=== PATIENT | female | born 1935 | race Caucasian/White ===

== ENCOUNTER 2019-06-06 09:59 | Outpatient (CLI) | payer MEDICARE, OTHER, SELFPAY ==
--- NOTE | ~2019-06-06 | MM_ITS ---
EXAMINATION: MM screening jacobo LT w prema HISTORY: Screening mammogram TECHNIQUE: Craniocaudal and mediolateral oblique 3-D tomosynthesis images were obtained and synthetic 2-D images were generated. CAD analysis was submitted and interpreted. COMPARISON: No prior mammogram is available for comparison at this institution. BREAST PARENCHYMAL COMPOSITION: There are scattered areas of fibroglandular density. FINDINGS: There is no evidence of suspicious mass, calcification, or architectural distortion to sugg est malignancy in either breast. There has been no suspicious interval change. IMPRESSION: 1. No mammographic evidence of malignancy. 2. Recommend routine screening mammography in one year. BI-RADS Category 1: Negative Reviewed, dictated and finalized at location A.
== END 2019-06-06 10:00 | disposition home or self-care (01) ==
LOC: ANHIMG 10:01
PROVIDERS: PCP Internal Medicine; Visit Provider Internal Medicine Hematology & Oncology
DX: Z12.31 Encounter for screening mammogram for malignant neoplasm of breast (principal)
CPT/HCPCS: 77063; 77067

== ENCOUNTER 2019-09-29 14:33 | Outpatient (CLI) | payer MEDICARE, OTHER, SELFPAY ==
--- NOTE | ~2019-09-29 | CT_ITS ---
EXAMINATION: CTA chest PE protocol DATE: 09/29/2019 15:48 INDICATION: Elevated d-dimer TECHNIQUE: Computed tomography angiography (CTA) of the chest was performed with 100 mL Omnipaque-350 intravenous contrast timed to evaluate the pulmonary arteries. Coronal maximum intensity projection 3D-reconstructions were created by the technologist. Automated exposure control and iterative reconst ruction technique were employed. Exam dose: 274.59 mGy-cm total exam DLP. COMPARISON: None. FINDINGS: There is moderate contrast enhancement of the pulmonary arteries, less intense than that of the aorta. No apparent pulmonary embolism is identified. No thoracic aortic aneurysm or dissection. No hilar or mediastinal mass lesion or lymphadenopathy. Normal size and homogeneous enhancement of the thyroid gland. Normal heart size. Trace pericardial fluid. Coronary artery calcification. Status post right mastectomy. There is a left-sided Port-A-Cath catheter in the superior vena cava. Small sliding hiatal hernia. Status post cholecystectomy. There is discoid atelectasis or scarring at the posterior right lung base. No pulmonary infiltrate or consolidation, pulmonary mass lesion. IMPRESSION: No evidence of pulmonary embolism Reviewed, dictated and finalized at Location A. Reviewed, dictated and finalized at location A.
== END 2019-09-29 14:34 | disposition home or self-care (01) ==
PROVIDERS: PCP Internal Medicine; Visit Provider Internal Medicine Hematology & Oncology
DX: R79.1 Abnormal coagulation profile (principal)
CPT/HCPCS: 71275; Q9967

== ENCOUNTER 2020-01-16 12:33 | Outpatient (CLI) | payer MEDICARE, OTHER, SELFPAY ==
--- NOTE | ~2020-01-16 | DEXA_ITS ---
Bone Density Report Name: Tatianna Bailey Age: 84 Sex: Female Ethnicity: White Date of : 1935 Indication: postmenopausal; cancer; hysterectomy; Referring Provider: Chadwick Enciso Study: Bone densitometry was performed. Exam Date: January 16, 2020 Accession number: [id number] Bone Density: Region BMD T-score Z-score Classification AP Spine (L1, L2, L4) 0.983 -0.5 2.3 Normal Femoral Neck (Left) 0.666 -1.7 0.8 Osteopenia Total Hip (Left) 0.826 -0.9 1.3 Normal Total Hip Bilateral Avg 0.788 -1.2 1.0 Osteopenia Femoral Neck (Right) 0.636 -1.9 0.5 Osteopenia Total Hip (Right) 0.750 -1.6 0.7 Osteopenia World Health Organization criteria for BMD impression classify patients as: Normal (T-score at or above -1.0), Osteopenia (T-score between -1.0 and -2.5), or Osteoporosis (T-score at or below -2.5). 10-year Fracture Risk(1): Major Osteoporotic Fracture 15% Hip Fracture 4.2% Reported Risk Factors: [place] (), Neck BMD=0.636, BMI=29.2 (1) FRAX(R) Version 3.08. Fracture probability calculated for an untreated patient. Fracture probability may be lower if the patient has received treatment. Clinical Information Provided by Patient: Has the following medical conditions: Cancer, Hysterectomy Patient maximum height was 64 Menopause Age: 46 No regular weight bearing exercise Drinks caffeinated beverages Impression: The patient has low bone mass, based on the Right Femoral Neck T-score. The patient has an estimated ten-year risk of hip fracture of 4.2% and an estimated ten-year risk of major fracture of 15%, based on the WHO FRAX algorithm. Discussion: BONE DENSITY IS LOW AT ONE OR MORE SKELETAL SITES. THE PATIENT'S BMD AND CLINICAL RISK FACTORS CONTRIBUTE TO THIS PATIENT'S INCREASED RISK OF FRACTURE. This patient's lowest T-score is low at one or more skeletal sites. It meets the World Health Organization's (WHO) criteria for ?low bone mass? (T-score between -1.0 and -2.5). The patient's 10-year risk of hip fracture as calculated by FRAX exceeds the threshold where pharmacological therapy is recommended by the National Osteoporosis Foundation (NOF). However, all treatment decisions require clinical judgment and consideration of individual patient factors, including patient preferences, comorbidities, previous drug use, risk factors not captured in the FRAX model (e.g., frailty, falls, vitamin D deficiency, increased bone turnover, interval significant decline in bone density) and possible under or overestimation of fracture risk by FRAX. The patient should follow a healthful lifestyle (good nutrition with adequate calcium and vitamin D, and appropriate weight-bearing exercise). Follow-Up: Consider a repeat BMD and Vertebral Fracture Assessment (VFA) exam in 2 years or sooner if medically neces
== END 2020-01-16 12:34 | disposition home or self-care (01) ==
PROVIDERS: PCP Internal Medicine; Visit Provider Internal Medicine Hematology & Oncology
DX: Z51.81 Encounter for therapeutic drug level monitoring (principal); Z79.811 Long term (current) use of aromatase inhibitors; M16.0 Bilateral primary osteoarthritis of hip
CPT/HCPCS: 77080

== ENCOUNTER 2020-06-06 13:50 | Outpatient (CLI) | payer MEDICARE, OTHER, SELFPAY ==
--- NOTE | ~2020-06-06 | MM_ITS ---
EXAMINATION: MM screening jacobo LT w prema HISTORY: Screening left mammogram, history of right mastectomy TECHNIQUE: Craniocaudal and mediolateral oblique 3-D tomosynthesis images were obtained and synthetic 2-D images were generated. CAD analysis was submitted and interpreted. COMPARISON: 06/06/2019, 06/08/2018, 05/29/2016 BREAST PARENCHYMAL COMPOSITION: The breast is heterogeneously dense, which may obscure small masses. FINDINGS: There is no evidence of suspicious mass, calcification, or architectural distortion to sugg est malignancy. There has been no suspicious interval change. IMPRESSION: 1. No mammographic evidence of malignancy. 2. Recommend routine screening mammography while the patient remains in good health. BI-RADS Category 1: Negative Reviewed, dictated and finalized at location A. IMPRESSION: 1. No mammographic evidence of malignancy. 2. Recommend routine screening mammography while the patient remains in good he alth. BI-RADS Category 1: Negative
== END 2020-06-06 13:51 | disposition home or self-care (01) ==
LOC: ANHIMG 13:55
PROVIDERS: PCP Internal Medicine; Visit Provider Internal Medicine Hematology & Oncology
DX: Z12.31 Encounter for screening mammogram for malignant neoplasm of breast (principal)
CPT/HCPCS: 77063; 77067

== ENCOUNTER 2020-06-06 14:50 | Outpatient (CLI) | payer MEDICARE, OTHER, SELFPAY ==
--- NOTE | ~2020-06-06 | XR_ITS ---
XR abdomen/kub 1V 06/06/2020 15:01 Indication: Constipation Procedure: KUB Comparison: CT dated 04/02/2017 Findings: Bowel gas pattern is nonobstructive. There are cholecystectomy clips. There are additional surgical clips in the right abdomen and pelvis. Moderate colonic fecal loading. There are pelvic phle boliths. No definite renal stones are demonstrated. There is severe lumbar spondylosis with dextrosco liosis. There is osteitis pubis. Impression: 1: Nonobstructive bowel gas pattern with moderate colonic fecal loading. Reviewed, dictated and finalized at location A. Impression: 1: Nonobstructive bowel gas pattern with moderate colonic fecal loading.
== END 2020-06-06 14:51 | disposition home or self-care (01) ==
PROVIDERS: PCP Internal Medicine; Visit Provider Internal Medicine
DX: K59.00 Constipation, unspecified (principal)
CPT/HCPCS: 74018

== ENCOUNTER → 2020-06-11 10:37 | Outpatient (CLI) | payer MEDICARE, OTHER, SELFPAY ==
[2020-06-11 19:58] LABS: SARS-CoV-2 RNA PCR Negative
== END ==
PROVIDERS: PCP Internal Medicine; Visit Provider Internal Medicine
DX: Z20.822 Contact with and (suspected) exposure to COVID-19 (principal); R06.02 Shortness of breath
CPT/HCPCS: C9803; U0003; U0005

== ENCOUNTER 2020-10-15 06:59 | Outpatient (CLI) | payer MEDICARE, OTHER, SELFPAY ==
--- NOTE | ~2020-10-15 | CT_ITS ---
EXAMINATION: CTA chest PE protocol EXAM DATE: 10/15/2020 07:58 INDICATION: dyspnea, unspec. TECHNIQUE: Spiral CTA of the chest (pulmonary arteries) was performed with 100 cc Omnipaque 350 intr avenous contrast injection. Images were acquired during the pulmonary arterial phase. Coronal maxi mum intensity projection 3D-reconstructions were created by the technologist on dedicated workstation . Axial, coronal and sagittal reformatted images were reviewed. The dose-length product (DLP) for t his examination was 463.61 mGy-cm. The exposure was tailored according to patient size (auto mA exp osure control), and iterative reconstruction (ASIR) was used as additional dose reduction technique. Comparison is made to prior examination from 09/29/2019. FINDINGS: Pulmonary arteries are well opacified and without intraluminal filling defects. No thora cic aortic dissection. There is 5 mm nodule in the left lower lobe just above the diaphragm, new comp ared to prior study. Small amount of scattered post infectious residua bilaterally. Small pericardi al effusion. Tracheobronchial tree is patent. Bilateral hilar lymph nodes which are within normal size limits. There is no pneumothorax. Pacemaker/AICD device. Heart normal in size. There is mild coronary arterial calcification, arterial sclerosis. Upper abdomen is unremarkable. There is thora cic spondylosis without osteoblastic or osteolytic lesions identified. There is mild emphysema IMPRESSION: 1. Left lower lobe 5 mm nodule, new finding; consider one-year follow-up chest CT. 2. Small amount of upper lobe post infectious residua. 3. Small pericardial effusion. 4. Mild emphysema. Reviewed, dictated and finalized at location B.
== END 2020-10-15 07:00 | disposition home or self-care (01) ==
PROVIDERS: PCP Internal Medicine; Visit Provider Internal Medicine Hematology & Oncology
DX: R06.00 Dyspnea, unspecified (principal); I31.3 Pericardial effusion (noninflammatory); J43.9 Emphysema, unspecified; R91.1 Solitary pulmonary nodule
CPT/HCPCS: 71275; Q9967

== ENCOUNTER 2021-01-28 14:12 | Outpatient (CLI) | payer MEDICARE, OTHER, SELFPAY ==
--- NOTE | 2021-01-28 16:12 | WPDPFTINT ---
PFT Procedure Performed PFT Procedure Performed Spirometry with Pre/Post Bronchodilator Plethysmography (Lung Vol) Diffusing Cap (DLCO) Flow Vol Loop PFT Interpretation This is a pulmonary function test with pre and post-bronchodilator spirometry, plethysmography and diffusing capacity. The test was performed and results interpreted in accordance with the 2019 and 2005 ATS/ERS Task Force guidelines respectively using the Global Lung Function Initiative-2012 reference equations. Patient demonstrated good effort and cooperation. Reproducibility criteria were met. The quality of the pre bronchodilator spirometry maneuver was Grade A and post bronchodilator spirometry maneuver was Grade A. Findings: Spirometry: there is decreased maximal expiratory airflow at all lung volumes with concave expiratory flow tracing. The contour of the inspiratory flow tracing is normal. The pre bronchodilator FVC is 2.02 L, 82% predicted. The pre bronchodilator FEV1 is 0.92 L, 50% predicted. The FEV1: FVC ratio is 45%. The post bronchodilator FVC is 2.30 L, representing a 14% increase. The post bronchodilator FEV1 is 1.14 L, representing a 24% increase. The post bronchodilator FEV1: FVC ratio was 50%. Plethysmography: The total lung capacity is 4.90 L, 96% predicted. The functional residual capacity is 3.31 L, 112% predicted. The residual volume is 2.62 L, 106% predicted. Diffusing capacity: The absolute diffusion capacity is 13.5, 71% predicted. The diffusing capacity corrected for alveolar volume is 3.68, 90% predicted. Impression: There is a moderately severe obstructive abnormality with significant improvement after inhaling a single dose of albuterol. The lung volumes are normal. The diffusing capacity is normal. There are no prior studies for comparison
== END 2021-01-28 14:13 | disposition home or self-care (01) ==
LOC: ANHPFT 14:15
PROVIDERS: PCP Internal Medicine; Visit Provider Internal Medicine Pulmonary Disease
DX: J44.9 Chronic obstructive pulmonary disease, unspecified (principal)
CPT/HCPCS: 94060; 94726; 94729

== ENCOUNTER 2021-04-15 00:07 | Day surgery (SDC) | payer MEDICARE, OTHER, SELFPAY ==
--- NOTE | 2021-04-08 13:10 | PC.NURSE ---
Report to the Outpatient Waiting Room, entrance under the green pavilion located off [facility], at time _06 on date _04/15/21 . OR Time: . - You and your visitor will be asked a series of questions to screen for COVID 19 for your protection. - A mask is required within the hospital. Preoperative COVID Testing Requirements: No COVID Test needed if: (proof is required; if not received patient will have Rapid Test prior to entry) - Patient has received COVID Vaccine at least 14 days prior to procedure date or - Patient has positive COVID test result within last 90 days of surgery date. COVID Test needed if above criteria is not met If not COVID vaccinated a COVID test must be conducted within 72 hours of surgery and patient is asked to isolate self from time of testing until procedure. You will go to the [facility] for your COVID testing. The [facility] site is located at the corner of [address] [facility]. You will only be called if COVID results are positive and your surgeon may reschedule your elective surgery date. LIGHT BREAKFAST MORNING OF SURGERY Take the following medications with a SIP of water the morning of surgery: ALL ROUTINE MORNING MEDICATIONS Medications to discontinue per physician NONE Date to take last dose Please no make-up, nail turkish, hairspray, perfume, deodorant, or body powder the day of surgery. No jewelry (including any body piercings) or valuables the day of surgery, leave them at home. Please take a shower or bath the night before, or the morning of, surgery with an antibacterial soap. Wear comfortable, loose fitting clothing. Children are encouraged to wear pajamas. - Jewelry must be removed prior to entering the operating room. Rings and piercings that are not removed may be cut off. - The hospital will not accept responsibility for valuables. - Please leave all valuables, including medications, at home the day of surgery YOU MAY DRIVE YOURSELF HOME-LOCAL ANESTHESIA One visitor will be allowed to accompany the patient into the hospital. Patients visitor will be instructed to remain with patient at all times or leave the building. We will allow the visitor to come back to the postoperative area when patient is ready. Follow any additional instructions given to you from your surgeon. Telephone instructions given to PATIENT and asked if any additional questions and then verbalized understanding. Patient advised to call surgeon office or pre surgery nurse liaison [phone] if any additional questions.
[2021-04-08 13:17] VITALS: BMI 30.9
--- NOTE | 2021-04-14 17:25 | PM.HPGS ---
History of Present Illness History of Present Illness Consent: Risks, benefits, and alternatives o removal of a Port-A-Cath have been discussed and questions answered. Patient agrees to proceed with procedure. Chief complaint: Milignant Neoplasm of Nipple Right Breast Narrative: Tatianna Bailey is a 85 year old female who has history of a lobular carcinoma of the right breast ( T1, N1, stage IIA). She had right breast cancer and she underwent treatment including per gentle and Herceptin. She now presents for removal of her Port-A-Cath which she no longer needs. Review of Systems Constitutional: Constitutional: Reports no additional constitutional complaints, Reports fatigue and Denies malaise Eyes: Eyes: Denies change in vision and Denies loss of vision ENT: Reports Normal hearing present, Denies change in voice, Denies dizziness, Denies hoarseness and Denies sore throat Cardiovascular: Cardiovascular: Denies chest pain, Denies leg edema and Denies dyspnea Comments: Known hypertension on meds Respiratory: Respiratory: Denies cough, Denies dyspnea and Denies wheezing Comments: apparently has COPD/asthma on medications. Gastrointestinal: Gastrointestinal: Denies hematochezia, Denies change in bowel habits and Denies heartburn Genitourinary: Genitourinary: Denies urinary frequency and Denies urinary incontinence Musculoskeletal: Comments: History of arthritis it appears that she takes anti-inflammatories as needed for right knee and other arthritic disease. Integumentary/Breasts: Comments: History of lobular carcinoma of the right breast discovered in 2018. Continues to follow Dr. Enciso. Initially had a lumpectomy with axillary lymph node biopsy then subsequently several months later in 2018 a right mastectomy. Neurologic: Reports Normal hearing present, Denies confusion, Denies dizziness, Denies loss of vision, Denies memory loss and Denies seizure-like activity Psychiatric: Psychiatric: Denies confusion, Denies depression and Denies memory loss Endocrine: Endocrine: Denies cold intolerance and Reports fatigue Hematologic/Lymphatic: Hematologic/Lymphatic: Denies easy bleeding and Denies easy bruising Allergic/Immunologic: Allergic/Immunologic: Denies wheezing PMFSH Past Medical History Medical History (Updated 04/14/21 @ 17:32 by Franky Watson MD) Angioedema Arthritis of right wrist BMI 30.0-30.9,adult (Unknown) Degenerative arthritis of knee, bilateral Estrogen receptor positive status (ER+) Incisional hernia, without obstruction or gangrene Iron deficiency anemia due to chronic blood loss 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, estrogen receptor positive Osteoarthritis of right knee (Unknown) Port-A-Cath in place (~2018) SOB (shortness of breath) Surgical History Surgical History H/O right mastectomy History of hernia repair History of right knee surgery Family History Family History Father Family history of diabetes mellitus in first degree relative Family history of coronary artery disease Patient's father is in good health Mother Family history of lung cancer Sibling Family history of lung cancer Family history of malignant neoplasm of brain, Onset Age: 60 Other Diabetes mellitus Family history of cardiovascular disease Family history of kidney disease Social History Social History Smoking status: Never smoker Second hand tobacco smoke exposure: No Smoking end date: 02/16/1961 Alcohol intake: current Drinks per week: 4 Alcohol use details: occasional Substance use: never Substance use type: does not use Living arrangements: with family Additional living arrangements comments: Spiritual care concerns: Yes (CAODAISM) Agree to blood products: No
[2021-04-15] VITALS (8 sets, daily range): BP systolic 155–178; BP diastolic 65–79; PULSE 75–82; RESP 16–18; TEMP 36.4; O2SAT 94–98
--- NOTE | 2021-04-15 07:13 | WPDHPUPDATE1 ---
History and Physical Update Update Date/Time: 04/15/21 07:13 History and Physical has been reviewed, including an updated exam of the patient. There are NO changes in the patient's condition. Risks, benefits, and alternatives have been discussed and questions answered. Patient agrees to proceed with procedure.
--- NOTE | 2021-04-15 08:44 | W.PM.PROC2 ---
Procedure Note - Detailed Date of Procedure 04/15/21 Pre-op Diagnosis 1. indwelling Port-A-Cath. 2. Malignant Neoplasm of Nipple Right Breast (T1, N1, MX right breast cancer) Post-op Diagnosis same Procedure Performed Removal of Kaycee-cath Surgeon Franky Watson MD Property Preservation Specialist none Anesthesia MAC and local (2% Xylocaine with Epi) Indications Patient has had a Port-A-Cath in for chemotherapy and immune therapy in the past. Now no longer in use. Plant to remove under local anesthetic. Findings Port significantly inferior to the original incision for placement so separate incision made. Port and catheter intact upon removal. no significant bleeding after holding pressure for 30 seconds upon removal of the catheter from the subclavicular position. Description of Procedure Prior to the procedure the patient was seen in the holding area and the area of proposed surgery was marked. All questions were answered and the patient wished to proceed with removal of the Port-A-Cath. The patient was brought to the operating room and placed supine. The entire left neck, chest, and shoulder were prepped with chlorhexidine. The area was draped off. Time-out was performed confirming patient and site of surgery. I outlined the proposed incision directly over the palpable port approximately 3 cm below the scar from the insertion. Following this a 15 blade knife was used to make an incision directly over the previously placed port. This was done after infiltrating local anesthetic using 2% xylocaine with epinephrine into the area of skin and subcutaneous tissue overlying the port and into the area of the pocket containing the port. Following this we carefully dissected down to the junction of the port and catheter. Bovie cautery with needle-tip was used to carefully incise the capsule around the port and free up the scar tissue around the junction of the port and catheter. Two apparent silk sutures that were holding the port to the underlying fascia were carefully excised with a 15 blade knife and mosquito hemostats. Following this the port was brought up and out of the pocket after I grasped it with 2 Allis clamps Then watching the patient's respirations, I carefully removed the catheter in one smooth pull while applying pressure in the subclavicular area on the right which was the catheter exit site as the patient was breathing out. Pressure was held for 1 minute. I used Bovie cautery on some the subcutaneous tissues as we waited for good clotting. Again hemostasis was checked in the wound and seemed to be adequate. Then using Bovie cautery for superficial hemostasis in the subcutaneous tissues it seems that hemostasis was well achieved. Following this closure was obtained with 3 layers. since the port seemed to be fairly deep I used to deep 3-0 Vicryl sutures. Then I used about 4 buried subcutaneous sutures of 3-0 Vicryl in the more superficial subcutaneous layer followed by a running subcuticular closure of 4-0 Monocryl on the skin. surgical glue was then applied. Patient tolerated the procedure well. Estimated blood loss was 3 cc Sponge, needle, and instrument counts were correct at the end the procedure and patient was taken to the outpatient recovery area in good condition. Implants none Drains No Packing No Pathology none sent Complications No immediate complications Condition stable Disposition same day
== END 2021-04-15 08:50 | disposition home or self-care (01) ==
PROVIDERS: PCP Internal Medicine; Visit Provider Surgery
PROC: (CPT 36589; principal; 2021-04-15 07:30)
DX: Z45.2 Encounter for adjustment and management of vascular access device (principal); C50.011 Malignant neoplasm of nipple and areola, right female breast; M19.90 Unspecified osteoarthritis, unspecified site; D50.0 Iron deficiency anemia secondary to blood loss (chronic); R06.02 Shortness of breath; Z79.51 Long term (current) use of inhaled steroids; J44.9 Chronic obstructive pulmonary disease, unspecified; I10 Essential (primary) hypertension
CPT/HCPCS: 36590

== ENCOUNTER 2021-06-10 10:29 | Outpatient (CLI) | payer MEDICARE, OTHER, SELFPAY ==
--- NOTE | ~2021-06-10 | MM_ITS ---
EXAMINATION: MM screening jacobo LT w prema HISTORY: Screening TECHNIQUE: Craniocaudal and mediolateral oblique 3-D tomosynthesis images were obtained and synthetic 2-D images were generated. CAD analysis was submitted and interpreted. COMPARISON: Comparison to multiple prior studies sequentially, with oldest reviewed study dated 02/2014. BREAST PARENCHYMAL COMPOSITION: Breast composed of scattered areas of fibroglandular density FINDINGS: There is no evidence of suspicious mass, calcification, or architectural distortion to sugg est malignancy in either breast. There has been no suspicious interval change. IMPRESSION: 1. No mammographic evidence of malignancy. 2. Recommend routine screening mammography in one year. BI-RADS Category 1: Negative Reviewed, dictated and finalized at location A.
== END 2021-06-10 10:30 | disposition home or self-care (01) ==
PROVIDERS: PCP Internal Medicine; Visit Provider Internal Medicine Hematology & Oncology
DX: Z12.31 Encounter for screening mammogram for malignant neoplasm of breast (principal)
CPT/HCPCS: 77063; 77067

== ENCOUNTER 2021-08-22 07:41 | Outpatient (CLI) | payer MEDICARE, OTHER, SELFPAY ==
--- NOTE | 2021-09-16 12:04 | WPDSLEEPSTUD ---
Sleep Study Date of Study: 08/22/21 Ordering Provider: Buster Gould MD Interpreting Physician: Juanita Villarreal DO Sleep Study Type: Split Polysomnogram Height: 1.63 m Weight: 78.471 kg Body Mass Index: 29.7 Neck Circumference (inches): 15 Barton: 2 Reason for Sleep Study Patient has EVELYN and her current CPAP machine is malfunctioning. 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 The patient frequently awakens from sleep short of breath. The patient occasionally awakens at night due to coughing. She is unsure if she snores. She frequently has trouble sleeping when she has a cold. She frequently has breathing problems at night observed by herself or others. She occasionally sweats excessively at night. She denies falling asleep during the day and while driving. She occasionally experiences loss of muscle tone when extremely emotional. She denies sleep paralysis and hypnagogic/ hypnopompic hallucinations. She rarely has nightmares. She frequently remembers her dreams. She frequently has thoughts racing through her mind. She frequently feels sad or depressed. She occasionally has anxiety. She frequently has muscular tension. She frequently has crawling and aching feelings in her legs and frequently has leg pain during the night. She frequently grinds her teeth during sleep and frequently awakens with morning jaw pain. She is occasionally bothered by pain during the day and frequently awakened by pain during the night. She frequently wakes up feeling stiff in the morning. She frequently wakes up with pain in the neck, spine and other joints. She goes to bed between 10-10 30 on both weekdays and weekends. She is able to fall asleep right away most of the time. The patient rarely awakens throughout the night. She wakes up at 7:00 a.m. on both weekdays and weekends. She typically gets 7 hours of sleep when she uses her CPAP. She typically stays in bed for 15 minutes after waking up that morning. She currently lives with her . She does not consume any caffeinated beverages within 2 hours of bedtime. She does not engage in physical exercise before bedtime. She denies reading and watching television before falling asleep. She does not take naps in the afternoon or the evening. She drinks 2-3 cups of caffeinated beverage per day. She denies tobacco, alcohol and recreational drug use. [facility] Past Medical History Medical History Angioedema Arthritis of right wrist BMI 30.0-30.9,adult (Unknown) Degenerative arthritis of knee, bilateral Estrogen receptor positive status (ER+) Incisional hernia, without obstruction or gangrene Iron deficiency anemia due to chronic blood loss 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, estrogen receptor positive Osteoarthritis of right knee (Unknown) Port-A-Cath in place (~2018) SOB (shortness of breath) Surgical History Surgical History H/O right mastectomy History of hernia repair History of right knee surgery Family History Family History Father Family history of diabetes mellitus in first degree relative Family history of coronary artery disease Patient's father is in good health Mother Family history of lung cancer Sibling Family history of lung cancer Family history of malignant neoplasm of brain, Onset Age: 60 Other Diabetes mellitus Family history of cardiovascular disease Family history of kidney disease Social History Social History Smoking status: Former smoker Second hand tobacco smoke exposure: No Smoking end date: 02/16/1960
[2021-09-16 21:57] VITALS: BMI 29.7
== END 2021-08-23 05:57 | disposition home or self-care (01) ==
LOC: ANHCSM 07:42
PROVIDERS: PCP Internal Medicine; Visit Provider Internal Medicine Pulmonary Disease
DX: G47.33 Obstructive sleep apnea (adult) (pediatric) (principal); Z99.89 Dependence on other enabling machines and devices
CPT/HCPCS: 95811

== ENCOUNTER 2021-11-06 09:32 | Outpatient (CLI) | payer MEDICARE, OTHER, SELFPAY ==
--- NOTE | ~2021-11-06 | CT_ITS ---
EXAMINATION:CT diagnostic chest w con DATE: 11/06/2021 10:05 INDICATION: Secondary and unspecified malignant neoplasm of lymph nodes. TECHNIQUE: Computed tomography (CT) of the chest was performed with 75 mL Omnipaque 350 intravenous c ontrast. Automated exposure control and iterative reconstruction technique were employed. The dose-le ngth product (DLP) was 179.86 mGy-cm. COMPARISON: Chest CT 10/15/2020, 09/29/19 FINDINGS: There is mild atelectasis bilaterally. There is a new 7 mm nodule in left upper lobe. There is a new 3 mm nodule left upper lobe. There is a new 3 mm nodule left lower lobe. No post pleural ef fusion. There is mild noncalcified mediastinal lymphadenopathy. For example, a right paratracheal nod e measures 17 x 18 mm. Calcified right hilar and mediastinal lymph nodes are consistent with old gran ulomatous disease. The heart size is normal. There is a trace pericardial effusion. There are changes of cholecystectomy. There are changes of right mastectomy. There are surgical clips in right axilla. There is mild thoracic spondylosis. IMPRESSION: 1. New pulmonary nodules measuring up to 7 mm suspicious for metastatic disease. 2. Mild mediastinal lymphadenopathy with worsening from 09/29/2019 suspicious for metastatic disease. Reviewed, dictated and finalized at location A. IMPRESSION: 1. New pulmonary nodules measuring up to 7 mm suspicious for metastatic disease . 2. Mild mediastinal lymphadenopathy with worsening from 09/29/2019 suspicious fo r metastatic disease.
[2021-11-06 10:01] LABS: Estimated Glomerular Filt Rate 43
== END 2021-11-06 09:33 | disposition home or self-care (01) ==
PROVIDERS: PCP Family Medicine; Visit Provider Internal Medicine Hematology & Oncology
DX: C77.9 Secondary and unspecified malignant neoplasm of lymph node, unspecified (principal); R91.8 Other nonspecific abnormal finding of lung field
CPT/HCPCS: 36415; 71260; 80053; 85025; 86300; Q9967

== ENCOUNTER 2021-12-12 11:15 | Outpatient (CLI) | payer MEDICARE, OTHER, SELFPAY | END 2021-12-12 11:16 | disposition home or self-care (01) | PROVIDERS: PCP Family Medicine; Visit Provider Nurse Practitioner Family | DX: M25.50 Pain in unspecified joint (principal) | CPT/HCPCS: 36415; 82728 ==

== ENCOUNTER 2022-02-10 11:58 | Emergency (ER) | payer MEDICARE, OTHER, SELFPAY ==
[2022-02-10 13:37] VITALS: BP 133/78; PULSE 80; RESP 16; TEMP 36.7; O2SAT 95
--- NOTE | 2022-02-10 14:14 | ED.URI ---
HPI - URI/Sore Throat General Chief Complaint: Upper Respiratory Infection Stated Complaint: cov pos Time Seen by Provider: 02/10/22 14:14 Source: patient and RN notes reviewed Mode of arrival: ambulatory Limitations: no limitations History of Present Illness HPI Narrative: 86-year-old female with history of asthma presents concern for positive COVID test. She reports 3 day history of symptoms. Reports cough, fatigue, body aches. Reports intermittent shortness of breath MD elicited complaint: cough Related Data Home Medications Medication Instructions Recorded Confirmed exemestane 25 mg tablet 25 mg PO DAILY 01/17/20 01/30/22 azelastine 137 mcg (0.1 %) nasal 1 spray intranasal PRN PRN Allergy 04/08/21 01/30/22 spray aerosol Symptoms bumetanide 2 mg tablet 1 mg PO DAILY 04/08/21 01/30/22 cholecalciferol (vitamin D3) 50 50 mcg PO DAILY 04/08/21 01/30/22 mcg (2,000 unit) tablet metoprolol succinate 25 mg 25 mg PO DAILY 10/11/21 01/30/22 tablet,extended release 24 hr diltiazem HCl 120 mg mg PO 02/10/22 tablet,extended release 24 hr (Cardizem LA) losartan 50 mg tablet mg 02/10/22 Allergies Allergy/AdvReac Type Severity Reaction Status Date / Time lisinopril Allergy Intermediate Hives Verified 02/10/22 14:17 codeine AdvReac Unknown Unknown Verified 02/10/22 14:17 Review of Systems Review of Systems: CONSTITUTIONAL: Reports malaise, fatigue EYES: Denies visual changes, redness, or discharge. ENT: Reports rhinorrhea, congestion CARDIOVASCULAR: Denies chest pain, palpitations, or edema. RESPIRATORY: Reports cough, intermittent dyspnea. GASTROINTESTINAL: Denies abdominal pain, nausea, vomiting, diarrhea SKIN: Denies rash or itching. MUSCULOSKELETAL: Reports myalgia. NEUROLOGIC: Denies headache. All systems reviewed & are unremarkable except as noted in HPI and below PMFSH Past Medical History Medical History Angioedema Arthritis of right wrist BMI 30.0-30.9,adult (Unknown) Degenerative arthritis of knee, bilateral Estrogen receptor positive status (ER+) Incisional hernia, without obstruction or gangrene Iron deficiency anemia due to chronic blood loss 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, estrogen receptor positive Osteoarthritis of right knee (Unknown) Port-A-Cath in place (~2018) SOB (shortness of breath) Surgical History Surgical History H/O right mastectomy History of hernia repair History of right knee surgery Family History Family History Father Family history of diabetes mellitus in first degree relative Family history of coronary artery disease Patient's father is in good health Mother Family history of lung cancer Sibling Family history of lung cancer Family history of malignant neoplasm of brain, Onset Age: 60 Other Diabetes mellitus Family history of cardiovascular disease Family history of kidney disease Social History Social History Smoking status: Former smoker Second hand tobacco smoke exposure: No Smoking end date: 02/16/1961 Alcohol intake: current Drinks per week: 4 Alcohol use details: occasional Substance use: never Substance use type: does not use Education: High School Diploma/GED Additional living arrangements comments: Spiritual care concerns: Yes (NONDENOMINATIONAL) Agree to blood products: No Comments At time of signature, agree with nursing past medical, surgical, social and family history. There is no relevant family history pertinent to the presenting complaint Exam Narrative: GENERAL: Nontoxic-appearing and in no acute distress. HEAD: Normocephalic EYES: PERRLA, conjunctivae clear ENT: Nares clear, clear discharge. Mucous membranes moist. TM pearly gutierrez with dull light reflex bilaterally; no t
== END 2022-02-10 14:22 | disposition home or self-care (01) ==
PROVIDERS: Emergency Provider Nurse Practitioner; PCP Family Medicine
DX: U07.1 COVID-19 (principal); Z87.891 Personal history of nicotine dependence; M19.031 Primary osteoarthritis, right wrist; M17.11 Unilateral primary osteoarthritis, right knee; Z85.3 Personal history of malignant neoplasm of breast; Z90.11 Acquired absence of right breast and nipple
CPT/HCPCS: 99213; G0463

== ENCOUNTER 2022-02-18 09:35 | Outpatient (CLI) | payer MEDICARE, OTHER, SELFPAY ==
--- NOTE | ~2022-02-18 | CT_ITS ---
Clinical Indication: Lung CT Scan of the Chest with Contrast: Technique: Contiguous sections were acquired throughout the chest after intravenous administration of 75 cc of Omnipaque 350. Dose reduction technique was used on this scan by utilizing automated exposu re control and iterative reconstruction technique. The dose-length product (DLP) was 183.31 mGy-cm. COMPARISON: 11/06/2021 and 09/29/2019 Findings: Mildly prominent mediastinal lymph nodes are stable from prior exam, most prominent in the precarinal region.. There is no filling defect in the pulmonary arterial tree to suggest pulmonary embolus. The re is no evidence of aortic dissection or aneurysm. There is no evidence of pleural or pericardial effusion. There is new subcentimeter peripheral right upper lobe pulmonary nodule, with minimal [place] (axial images 40-45), compatible with probable impacted airways or small airways infection. No o ther definite pulmonary nodules identified on the current exam. Images through the upper abdomen reveal no abnormalities. Impression: Probable focal impacted small airways or small airways infection in the right upper lobe, with severa l adjacent subcentimeter peripheral nodules. Please see details above. No other pulmonary nodule is evident. Stable mild mediastinal lymphadenopathy, nonspecific. Reviewed, dictated and finalized at location . 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 Please see d etails above. No other pulmonary nodule is evident. Stable mild mediastinal lymphadenopathy, nonspecific.
[2022-02-18 09:52] LABS: Estimated Glomerular Filt Rate 47
== END 2022-02-18 09:36 | disposition home or self-care (01) ==
LOC: ANHIMG 09:36
PROVIDERS: PCP Family Medicine; Visit Provider Internal Medicine Hematology & Oncology
DX: R91.1 Solitary pulmonary nodule (principal); R59.0 Localized enlarged lymph nodes
CPT/HCPCS: 36415; 71260; 80053; 85025; 86300; Q9967

== ENCOUNTER 2022-03-11 14:09 | Outpatient (NON) | payer MEDICARE, OTHER, SELFPAY ==
[2022-03-11 20:56] LABS: IFOB Positive Control Positive; Immunochemical Fecal Occult Bl Positive (N)
== END 2022-03-11 14:10 | disposition home or self-care (01) ==
LOC: ANHGOSHLAB 14:10
PROVIDERS: PCP Family Medicine; Visit Provider Family Medicine
DX: Z12.11 Encounter for screening for malignant neoplasm of colon (principal)
CPT/HCPCS: 82274

== ENCOUNTER 2022-04-09 02:31 | Day surgery (SDC) | payer MEDICARE, OTHER, SELFPAY ==
[2022-03-27 13:18] VITALS: BMI 29.5
[2022-04-09 09:00] VITALS: BP 159/69; PULSE 73; RESP 18; TEMP 36.1; O2SAT 97
--- NOTE | 2022-04-09 09:03 | WPDANESEPPF ---
Anes - Initial Pre Proc Eval Procedure: Operation Date: 04/09/22 10:00 Proposed Procedures p Colonoscopy - Jakub Jansen MD Date/Time: 04/09/22 09:03 Surgeon: Jakub Jansen MD Pre Op Diagnosis: neoplasm screening Patient Data Age: 86 Gender: F Height: 1.63 m Weight: 78.7 kg Last Vital Signs Temp 96.9 F L 04/09/22 09:00 Pulse 73 04/09/22 09:00 Resp 18 04/09/22 09:00 BP 159/69 H 04/09/22 09:00 Pulse Ox 97 04/09/22 09:00 O2 Del Method Room Air 04/09/22 09:00 Allergies Allergy/AdvReac Type Severity Reaction Status Date / Time lisinopril Allergy Intermediate Hives Verified 04/09/22 08:57 codeine AdvReac Unknown Unknown Verified 04/09/22 08:57 Home Medications Medication Instructions Recorded Confirmed Type exemestane 25 mg tablet 25 mg PO DAILY 01/17/20 03/27/22 History albuterol sulfate 90 mcg/actuation 2 puff inhalation Q4H PRN 12/26/20 03/27/22 Rx aerosol inhaler (Ventolin HFA) shortness of breath or wheezing #1 ea bumetanide 2 mg tablet 1 mg PO EVERY OTHER DAY 04/08/21 03/27/22 History cholecalciferol (vitamin D3) 50 50 mcg PO DAILY 04/08/21 03/27/22 History mcg (2,000 unit) tablet metoprolol succinate 25 mg 25 mg PO DAILY 10/11/21 04/09/22 History tablet,extended release 24 hr sertraline 50 mg tablet 50 mg PO DAILY #90 tabs 10/11/21 03/27/22 Rx budesonide-formoterol HFA 160 See Rx Instructions .Route 11/25/21 03/27/22 Rx mcg-4.5 mcg/actuation aerosol .COMPLEX #10.2 ea inhaler (Symbicort) diltiazem HCl 120 mg 120 mg PO DAILY 02/25/22 04/09/22 History tablet,extended release 24 hr (Cardizem LA) montelukast 10 mg tablet 10 mg PO DAILY #90 tabs 02/25/22 03/27/22 Rx azelastine 137 mcg (0.1 %) nasal 1 spray intranasal BID PRN Allergy 02/28/22 03/27/22 Rx spray aerosol Symptoms #30 mL ferrous sulfate 324 mg (65 mg 324 mg PO DAILY #30 tabs 03/05/22 03/27/22 Rx iron) tablet,delayed release fluticasone propionate 50 1 spray intranasal BID #15.8 mL 04/08/22 04/09/22 Rx mcg/actuation nasal spray,suspension Patient hx anesthesia problems: none Family hx anesthesia problems: none Results Review: All pre-operative results and documents have been reviewed as part of the pre-operative evaluation. [facility] Past Medical History Medical History Angioedema Arthritis of right wrist BMI 30.0-30.9,adult (Unknown) Degenerative arthritis of knee, bilateral Estrogen receptor positive status (ER+) Incisional hernia, without obstruction or gangrene Iron deficiency anemia due to chronic blood loss 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, estrogen receptor positive Osteoarthritis of right knee (Unknown) Port-A-Cath in place (~2018) SOB (shortness of breath) Surgical History Surgical History H/O right mastectomy History of hernia repair History of right knee surgery Family History Family History Father Family history of diabetes mellitus in first degree relative Family history of coronary artery disease Patient's father is in good health Mother Family history of lung cancer Sibling Family history of lung cancer Family history of malignant neoplasm of brain, Onset Age: 60 Other Diabetes mellitus Family history of cardiovascular disease Family history of kidney disease Social History Social History Smoking status: Never smoker Second hand tobacco smoke exposure: No Smoking end date: 02/16/1961 Alcohol intake: current Drinks per week: 4 Alcohol use details: occasional Substance use: never Substance use type: does not use Lack of Transportation: No Lack of Food: Never True Current Housing: I Have Housing Concerned About Future Housing: No Difficulty Paying Gas/[employer]
[2022-04-09] MEDS: LACTATED RINGERS 1,000 ML 150 ML IV CONT (09:12)
--- NOTE | 2022-04-09 09:26 | PM.HPGS ---
History of Present Illness History of Present Illness Consent: Risks, benefits, and alternatives have been discussed and questions answered. Patient agrees to proceed with procedure. Chief complaint: neoplasm screening Narrative: Tatianna Bailey is a 86 year old female here for screening colonoscopy Review of Systems Constitutional: Constitutional: Denies headache(s) and Denies weakness Eyes: Eyes: Denies blurry vision ENT: Reports Normal hearing present, Denies headache(s) and Denies neck pain Cardiovascular: Cardiovascular: Denies chest pain and Denies dyspnea Respiratory: Respiratory: Denies dyspnea Gastrointestinal: Gastrointestinal: Reports no additional gastrointestinal complaints Genitourinary: Genitourinary: Denies dysuria Musculoskeletal: Musculoskeletal: Denies neck pain Integumentary/Breasts: Skin/Breast: Denies dry skin Neurologic: Reports Normal hearing present, Denies headache(s) and Denies weakness Psychiatric: Psychiatric: Denies anxiety Endocrine: Endocrine: Denies change in body appearance Hematologic/Lymphatic: Hematologic/Lymphatic: Denies easy bleeding Allergic/Immunologic: Allergic/Immunologic: Denies urticaria PMFSH Past Medical History Medical History (Updated 04/09/22 @ 09:27 by Jakub Jansen MD) Angioedema Arthritis of right wrist BMI 30.0-30.9,adult (Unknown) Colon cancer screening Degenerative arthritis of knee, bilateral Estrogen receptor positive status (ER+) Incisional hernia, without obstruction or gangrene Iron deficiency anemia due to chronic blood loss 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, estrogen receptor positive Osteoarthritis of right knee (Unknown) Port-A-Cath in place (~2018) SOB (shortness of breath) Surgical History Surgical History H/O right mastectomy History of hernia repair History of right knee surgery Family History Family History Father Family history of diabetes mellitus in first degree relative Family history of coronary artery disease Patient's father is in good health Mother Family history of lung cancer Sibling Family history of lung cancer Family history of malignant neoplasm of brain, Onset Age: 60 Other Diabetes mellitus Family history of cardiovascular disease Family history of kidney disease Social History Social History Smoking status: Never smoker Second hand tobacco smoke exposure: No Smoking end date: 02/16/1961 Alcohol intake: current Drinks per week: 4 Alcohol use details: occasional Substance use: never Substance use type: does not use Lack of Transportation: No Lack of Food: Never True Current Housing: I Have Housing Concerned About Future Housing: No Difficulty Paying Gas/Electric Bills: No Difficulty Paying for Meds: No Currently Unemployed: No Education: High School Diploma/GED Difficulty w/ Childcare or Family Care: No Living arrangements: with family Additional living arrangements comments: Occupation/Education: retired Gender identity (if verbalized by the patient): Female Sexual Orientation (if Verbalized by the Patient): Straight or Heterosexual Spiritual care concerns: No Agree to blood products: No Meds Home Medications and Allergies Home Medications Medication Instructions Recorded Confirmed Type exemestane 25 mg tablet 25 mg PO DAILY 01/17/20 03/27/22 History albuterol sulfate 90 mcg/actuation 2 puff inhalation Q4H PRN 12/26/20 03/27/22 Rx aerosol inhaler (Ventolin HFA) shortness of breath or wheezing #1 ea bumetanide 2 mg tablet 1 mg PO EVERY OTHER DAY 04/08/21 03/27/22 History cholecalciferol (vitamin D3) 50 50 mcg PO DAILY 04/08/21 03/27/22 History mcg (2,000 unit) tablet metoprolol succinate 25 mg 25 mg PO DAILY
[2022-04-09 09:51] VITALS: BP 147/76; PULSE 73; RESP 23; O2SAT 97
[2022-04-09 10:01] VITALS: BP 135/72; PULSE 72; RESP 20; O2SAT 98
[2022-04-09 10:11] VITALS: BP 119/89; PULSE 83; RESP 20; O2SAT 98
== END 2022-04-09 10:20 | disposition home or self-care (01) ==
PROVIDERS: PCP Family Medicine; Visit Provider Internal Medicine Gastroenterology
PROC: 0DJD8ZZ Inspection of Lower Intestinal Tract, Via Natural or Artificial Opening Endoscopic (ICD-10-PCS; CPT 45378; principal; 2022-04-09 10:00)
DX: Z12.11 Encounter for screening for malignant neoplasm of colon (principal); D12.2 Benign neoplasm of ascending colon; D12.0 Benign neoplasm of cecum; K57.30 Diverticulosis of large intestine without perforation or abscess without bleeding; K64.4 Residual hemorrhoidal skin tags; Z79.51 Long term (current) use of inhaled steroids; Z85.3 Personal history of malignant neoplasm of breast
CPT/HCPCS: 45385; 88305; J2704; J7120

== ENCOUNTER 2022-06-12 10:23 | Outpatient (CLI) | payer MEDICARE, OTHER, SELFPAY ==
--- NOTE | ~2022-06-12 | MM_ITS ---
EXAMINATION: MM screening jacobo LT w prema HISTORY: Screening mammogram TECHNIQUE: Craniocaudal and mediolateral oblique 3-D tomosynthesis images were obtained and synthetic 2-D images were generated. CAD analysis was submitted and interpreted. COMPARISON: 06/10/2021, 06/06/2020, 06/06/2019 left screening mammogram examinations BREAST PARENCHYMAL COMPOSITION: There are scattered areas of fibroglandular density. FINDINGS: Status post right mastectomy in 2018 by clinical history. Occasional benign calcifications. There is no evidence of suspicious mass, calcification, or architectural distortion to suggest malig reji in the left breast. There has been no suspicious interval change. IMPRESSION: 1. No mammographic evidence of malignancy. 2. Recommend routine screening mammography in one year. BI-RADS Category 1: Negative Reviewed, dictated and finalized at location A.
== END 2022-06-12 10:24 | disposition home or self-care (01) ==
LOC: ANHIMG 10:24
PROVIDERS: PCP Family Medicine; Visit Provider Internal Medicine Hematology & Oncology
DX: Z12.31 Encounter for screening mammogram for malignant neoplasm of breast (principal)
CPT/HCPCS: 77063; 77067

== ENCOUNTER → 2022-07-03 11:22 | Outpatient (CLI) | payer MEDICARE, OTHER, SELFPAY ==
--- NOTE | ~2022-07-03 | CT_ITS ---
EXAMINATION: CT sinus wo con DATE: 07/03/2022 11:45 INDICATION: Chronic sinusitis TECHNIQUE: Computed tomography (CT) of the paranasal sinuses was performed without intravenous contra st. The dose-length product was 406.70 mGy-cm. Automated exposure control and iterative reconstructio n technique were employed. COMPARISON: None FINDINGS: There is mild mucosal thickening of the ethmoid sinuses. Rightward nasal septal deviation. There are no air-fluid levels. No significant mucoperiosteal reaction. Mastoids are pneumatized. Righ tward nasal septal deviation. Ostiomeatal units are patent. IMPRESSION: 1. Mild ethmoid sinus disease. Reviewed, dictated and finalized at location L.
== END ==
PROVIDERS: PCP Family Medicine; Visit Provider Otolaryngology
DX: J32.9 Chronic sinusitis, unspecified (principal)
CPT/HCPCS: 70486

== ENCOUNTER 2022-07-08 10:37 | Outpatient (CLI) | payer MEDICARE, OTHER, SELFPAY | END 2022-07-08 10:38 | disposition home or self-care (01) | LOC: ANHAUDIO 10:38 | PROVIDERS: PCP Family Medicine; Visit Provider Otolaryngology | DX: H90.3 Sensorineural hearing loss, bilateral (principal) | CPT/HCPCS: 92557; 92567 ==

== ENCOUNTER 2022-07-25 01:35 | Day surgery (SDC) | payer MEDICARE, OTHER, SELFPAY ==
[2022-07-18 13:59] VITALS: BMI 29.9
[2022-07-25 08:46] VITALS: BP 166/104; PULSE 64; RESP 18; TEMP 36.2; O2SAT 98; BMI 30.2
[2022-07-25] MEDS: LACTATED RINGERS 1,000 ML 150 ML IV CONT (08:51)
--- NOTE | 2022-07-25 09:04 | WPDANESEPPF ---
Anes - Initial Pre Proc Eval Procedure: Operation Date: 07/25/22 09:30 Proposed Procedures p Esophagogastroduodenoscopy - Jakub Jansen MD Date/Time: 07/25/22 09:04 Surgeon: Jakub Jansen MD Pre Op Diagnosis: dysphagia Patient Data Age: 86 Gender: F Height: 1.63 m Weight: 79.8 kg Last Vital Signs Temp 36.2 C L 07/25/22 08:46 Pulse 64 07/25/22 08:46 Resp 18 07/25/22 08:46 BP 166/104 H 07/25/22 08:46 Pulse Ox 98 07/25/22 08:46 O2 Del Method Room Air 07/25/22 08:46 Allergies Allergy/AdvReac Type Severity Reaction Status Date / Time lisinopril Allergy Intermediate Hives Verified 07/25/22 08:42 codeine Allergy Unknown Unknown Verified 07/25/22 08:42 Home Medications Medication Instructions Recorded Confirmed Type exemestane 25 mg tablet 25 mg PO DAILY 01/17/20 07/25/22 History diltiazem HCl 120 mg 120 mg PO DAILY 02/25/22 07/25/22 History tablet,extended release 24 hr (Cardizem LA) sertraline 50 mg tablet 50 mg PO DAILY #90 tabs 04/17/22 07/25/22 Rx ferrous sulfate 324 mg (65 mg 324 mg PO .MWF #30 tabs 05/28/22 07/25/22 Rx iron) tablet,delayed release tiotropium bromide 2.5 2 inh inhalation QAM #4 grams 05/28/22 07/25/22 Rx mcg/actuation mist for inhalation (Spiriva Respimat) albuterol sulfate 90 mcg/actuation 2 puff inhalation Q4H PRN 06/10/22 07/25/22 Rx aerosol inhaler (Ventolin HFA) shortness of breath or wheezing #1 ea azelastine 137 mcg (0.1 %) nasal 1 - 2 spray intranasal BID PRN 06/20/22 07/25/22 Rx spray aerosol Allergy Symptoms #30 mL budesonide-formoterol HFA 160 See Rx Instructions .Route 06/23/22 07/25/22 Rx mcg-4.5 mcg/actuation aerosol .COMPLEX #10.2 ea inhaler (Symbicort) fluticasone propionate 50 2 spray intranasal BID #15.8 mL 06/23/22 07/25/22 Rx mcg/actuation nasal spray,suspension bumetanide 2 mg tablet 2 mg PO DAILY 07/18/22 07/25/22 History metoprolol succinate 50 mg 50 mg PO DAILY 07/18/22 07/25/22 History tablet,extended release 24 hr Patient hx anesthesia problems: none Family hx anesthesia problems: none Results Review: All pre-operative results and documents have been reviewed as part of the pre-operative evaluation. [facility] Past Medical History Medical History Adenomatous colon polyp Angioedema Arthritis of right wrist BMI 30.0-30.9,adult (Unknown) Colon cancer screening Degenerative arthritis of knee, bilateral Estrogen receptor positive status (ER+) Incisional hernia, without obstruction or gangrene Iron deficiency anemia due to chronic blood loss 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, estrogen receptor positive Osteoarthritis of right knee (Unknown) Port-A-Cath in place (~2018) SOB (shortness of breath) Surgical History Surgical History H/O right mastectomy History of hernia repair History of right knee surgery Family History Family History Father Family history of diabetes mellitus in first degree relative Family history of coronary artery disease Patient's father is in good health Mother Family history of lung cancer Sibling Family history of lung cancer Family history of malignant neoplasm of brain, Onset Age: 60 Other Diabetes mellitus Family history of cardiovascular disease Family history of kidney disease Social History Social History Smoking status: Never smoker Second hand tobacco smoke exposure: No Smoking end date: 02/16/1961 Alcohol intake: current Drinks per week: 3 Alcohol use details: DRINK Substance use: never Substance use type: does not use Lack of Transportation: No Lack of Food: Never True Current Housing: I Have Housing Concerned About Future Housing: No Di
--- NOTE | 2022-07-25 09:14 | PM.HPGS ---
History of Present Illness History of Present Illness Consent: Risks, benefits, and alternatives have been discussed and questions answered. Patient agrees to proceed with procedure. Chief complaint: dysphagia Narrative: Tatianna Bailey is a 86 year old female with copd and chronic cough, also sometimes choking sensation after eating Review of Systems Constitutional: Constitutional: Denies headache(s) and Denies weakness Eyes: Eyes: Denies blurry vision ENT: Reports Normal hearing present, Denies headache(s) and Denies neck pain Cardiovascular: Cardiovascular: Denies chest pain Respiratory: Respiratory: Reports cough Gastrointestinal: Gastrointestinal: Reports no additional gastrointestinal complaints Genitourinary: Genitourinary: Denies dysuria Musculoskeletal: Musculoskeletal: Denies neck pain Integumentary/Breasts: Skin/Breast: Denies dry skin Neurologic: Reports Normal hearing present, Denies headache(s) and Denies weakness Psychiatric: Psychiatric: Denies anxiety Endocrine: Endocrine: Denies change in body appearance Hematologic/Lymphatic: Hematologic/Lymphatic: Denies easy bleeding Allergic/Immunologic: Allergic/Immunologic: Denies urticaria PMFSH Past Medical History Medical History Adenomatous colon polyp Angioedema Arthritis of right wrist BMI 30.0-30.9,adult (Unknown) Colon cancer screening Degenerative arthritis of knee, bilateral Estrogen receptor positive status (ER+) Incisional hernia, without obstruction or gangrene Iron deficiency anemia due to chronic blood loss 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, estrogen receptor positive Osteoarthritis of right knee (Unknown) Port-A-Cath in place (~2018) SOB (shortness of breath) Surgical History Surgical History H/O right mastectomy History of hernia repair History of right knee surgery Family History Family History Father Family history of diabetes mellitus in first degree relative Family history of coronary artery disease Patient's father is in good health Mother Family history of lung cancer Sibling Family history of lung cancer Family history of malignant neoplasm of brain, Onset Age: 60 Other Diabetes mellitus Family history of cardiovascular disease Family history of kidney disease Social History Social History Smoking status: Never smoker Second hand tobacco smoke exposure: No Smoking end date: 02/16/1961 Alcohol intake: current Drinks per week: 3 Alcohol use details: DRINK Substance use: never Substance use type: does not use Lack of Transportation: No Lack of Food: Never True Current Housing: I Have Housing Concerned About Future Housing: No Difficulty Paying Gas/Electric Bills: No Difficulty Paying for Meds: No Currently Unemployed: No Education: High School Diploma/GED Difficulty w/ Childcare or Family Care: No Living arrangements: with family Additional living arrangements comments: Occupation/Education: retired Gender identity (if verbalized by the patient): Female Sexual Orientation (if Verbalized by the Patient): Straight or Heterosexual Spiritual care concerns: No Agree to blood products: No Meds Home Medications and Allergies Home Medications Medication Instructions Recorded Confirmed Type exemestane 25 mg tablet 25 mg PO DAILY 01/17/20 07/25/22 History diltiazem HCl 120 mg 120 mg PO DAILY 02/25/22 07/25/22 History tablet,extended release 24 hr (Cardizem LA) sertraline 50 mg tablet 50 mg PO DAILY #90 tabs 04/17/22 07/25/22 Rx ferrous sulfate 324 mg (65 mg 324 mg PO .MWF #30 tabs 05/28/22 07/25/22 Rx iron) tablet,delayed release tiotropium bromide 2.5 2 inh inhalation QAM #4 gr
[2022-07-25] MEDS: ALBUTEROL SULFATE NEB 2.5 MG/3 ML INH INHALATION (09:28)
[2022-07-25 09:29] VITALS: PULSE 68; RESP 16
[2022-07-25 10:02] VITALS: BP 154/74; PULSE 84; RESP 13; O2SAT 100
[2022-07-25 10:12] VITALS: BP 140/74; PULSE 70; RESP 15; O2SAT 100
[2022-07-25 10:22] VITALS: BP 149/64; PULSE 71; RESP 12; O2SAT 100
== END 2022-07-25 10:35 | disposition home or self-care (01) ==
PROVIDERS: PCP Family Medicine; Visit Provider Internal Medicine Gastroenterology
PROC: 0DJ08ZZ Inspection of Upper Intestinal Tract, Via Natural or Artificial Opening Endoscopic (ICD-10-PCS; CPT 43235; principal; 2022-07-25 09:30)
DX: K22.2 Esophageal obstruction (principal); K29.50 Unspecified chronic gastritis without bleeding; J44.9 Chronic obstructive pulmonary disease, unspecified; R05.3 Chronic cough; Z79.51 Long term (current) use of inhaled steroids; Z85.3 Personal history of malignant neoplasm of breast
CPT/HCPCS: 43249; 43239; 88305; 94640; C1726; J2704; J7120

== ENCOUNTER 2022-08-21 10:21 | Outpatient (CLI) | payer MEDICARE, OTHER, SELFPAY ==
--- NOTE | 2022-08-21 10:39 | ECG_ITS ---
Measurements Intervals [place] Rate: 64 P: 68 IA: 179 QRS: 2 QRSD: 88 T: 51 QT: 419 QTc: 433 Interpretive Statements SINUS RHYTHM BASELINE ARTIFACT- I, II, III, AVR, AVL, AVF NORMAL ECG COMPARED TO ECG 04/15/2018 15:13:15 NO SIGNIFICANT CHANGES Electronically Signed On 08-21-2022 11:13:25 CDT by Madi Pitts D.O.
[2022-08-21 11:09] LABS: Hematocrit 36.4 % (37.0-47.0); Hemoglobin 11.7 g/dL (12.0-15.0)
[2022-08-21 11:19] LABS: Anion Gap 5 mmol/L (8-16); Blood Urea Nitrogen 18 mg/dL (7-17); Calcium 8.9 mg/dL (8.4-10.2); Carbon Dioxide 33 mmol/L (22-30); Chloride 95 mmol/L (98-107); Estimated Glomerular Filt Rate 43; Glucose 101 mg/dL (65-110); Potassium 4.3 mmol/L (3.4-5.0); Sodium 133 mmol/L (137-145)
== END 2022-08-21 10:22 | disposition home or self-care (01) ==
PROVIDERS: Anesthesiology; PCP Family Medicine; Visit Provider Otolaryngology
DX: D64.9 Anemia, unspecified (principal); I10 Essential (primary) hypertension; Z79.899 Other long term (current) drug therapy; Z01.818 Encounter for other preprocedural examination
CPT/HCPCS: 36415; 80048; 82728; 85014; 85018; 93005

== ENCOUNTER 2022-08-21 10:50 | Outpatient (CLI) | payer MEDICARE, OTHER, SELFPAY ==
[2022-08-21 12:03] LABS: Ferritin 9.43 ng/mL (11.1-264)
== END 2022-08-21 10:51 | disposition home or self-care (01) ==
PROVIDERS: PCP Family Medicine; Visit Provider Physician Assistant
DX: D64.9 Anemia, unspecified (principal)
CPT/HCPCS: 36415; 82728

== ENCOUNTER 2022-08-25 18:23 | Observation (INO) | payer MEDICARE, OTHER, SELFPAY ==
[2022-08-14 08:56] VITALS: BMI 29.5
--- NOTE | 2022-08-14 09:11 | PC.NURSE ---
Report to the Outpatient Waiting Room, entrance under the green pavilion located off [facility], at time _0700_ on date _08/25/22_. Planned Procedure Time: _0900_. Time changes happen often and if your time is changed the preop area will call you the afternoon before. - You and your visitor will be asked to self-screen and do not enter if you have any COVID symptoms. - A mask is optional within the hospital at this time. Patients may have clear liquids (water, carbonated beverages, clear teas, apple juice) until 3 hours prior to surgery (0600 AM) with a maximum of 20 ounces. - No food from midnight until time of surgery Take the following medications with a SIP of water the morning of surgery: _DILTIAZEM, METOPROLOL, INHALERS_ DO NOT STOP ANY OF YOUR OTHER PRESCRIPTION MEDICATIONS PRIOR TO SURGERY ?EXCEPT THE FOLLOWING Medications to discontinue per physician ___NONE____, Date to take last dose Please no make-up, nail georgian, hairspray, perfume, deodorant, or body powder the day of surgery. No jewelry (including any body piercings) or valuables the day of surgery, leave them at home. Please take a shower or bath the night before, or the morning of, surgery with an antibacterial soap. Wear comfortable, loose fitting clothing. - Jewelry must be removed prior to entering the operating room. Rings and piercings that are not removed may be cut off. - The hospital will not accept responsibility for valuables. - Please leave all valuables, including medications, at home the day of surgery. If you are going home after surgery, a licensed automation driver must drive you home. - NO public transportation without another adult if you receive anesthesia. - We recommend that an adult stay with you for 24 hours following discharge. - We also recommend that you do not drive, make important decision, drink alcoholic beverages, or take any drugs that were not prescribed by your health care provider for at least 24 hours after your discharge time. Follow any additional instructions given to you from your surgeon. If you or anyone in your household have experienced Covid symptoms in the past week, please notify your surgeon or the nurse liaison at the phone number below for possible testing. Telephone instructions given to _PATIENT_and asked if any additional questions and then verbalized understanding. Patient advised to call surgeon office or pre surgery nurse liaison [phone] if any additional questions.
--- NOTE | 2022-08-22 16:57 | PM.IMHP ---
H&P: HPI History of Present Illness Date/Time: 08/22/22 16:57 Chief Complaint: postnasal drainage chronic sinusitis Narrative: planned procedure Review of Systems Review of Systems: All systems reviewed & are unremarkable except as noted in HPI and below PMFSH Past Medical History Medical History Adenomatous colon polyp Angioedema Arthritis of right wrist BMI 30.0-30.9,adult (Unknown) Colon cancer screening Degenerative arthritis of knee, bilateral Estrogen receptor positive status (ER+) Incisional hernia, without obstruction or gangrene Iron deficiency anemia due to chronic blood loss 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, estrogen receptor positive Osteoarthritis of right knee (Unknown) Port-A-Cath in place (~2018) SOB (shortness of breath) Surgical History Surgical History H/O right mastectomy History of hernia repair History of right knee surgery Family History Family History Father Family history of diabetes mellitus in first degree relative Family history of coronary artery disease Patient's father is in good health Mother Family history of lung cancer Sibling Family history of lung cancer Family history of malignant neoplasm of brain, Onset Age: 60 Other Diabetes mellitus Family history of cardiovascular disease Family history of kidney disease Social History Social History Smoking status: Former smoker Tobacco type: cigarettes Second hand tobacco smoke exposure: No Smoking end date: 02/16/61 Additional smoking assessment comments: STATES <PK/DAY/3YRS Alcohol intake: current Drinks per week: 3 Alcohol use details: DRINK Substance use: never Substance use type: does not use Lack of Transportation: No Lack of Food: Never True Current Housing: I Have Housing Concerned About Future Housing: No Difficulty Paying Gas/Electric Bills: No Difficulty Paying for Meds: No Currently Unemployed: No Education: High School Diploma/GED Difficulty w/ Childcare or Family Care: No Living arrangements: with family Additional living arrangements comments: LIVES WITH [employer] Occupation/Education: retired Gender identity (if verbalized by the patient): Female Sexual Orientation (if Verbalized by the Patient): Straight or Heterosexual Spiritual care concerns: Yes Agree to blood products: No Meds Home Medications and Allergies Home Medications Medication Instructions Recorded Confirmed Type exemestane 25 mg tablet 25 mg PO DAILY 01/17/20 08/15/22 History diltiazem HCl 120 mg 120 mg PO DAILY 02/25/22 08/15/22 History tablet,extended release 24 hr (Cardizem LA) sertraline 50 mg tablet 50 mg PO DAILY #90 tabs 04/17/22 08/15/22 Rx tiotropium bromide 2.5 2 inh inhalation QAM #4 grams 05/28/22 08/15/22 Rx mcg/actuation mist for inhalation (Spiriva Respimat) albuterol sulfate 90 mcg/actuation 2 puff inhalation Q4H PRN 06/10/22 08/15/22 Rx aerosol inhaler (Ventolin HFA) shortness of breath or wheezing #1 ea azelastine 137 mcg (0.1 %) nasal 1 - 2 spray intranasal BID PRN 06/20/22 08/15/22 Rx spray aerosol Allergy Symptoms #30 mL budesonide-formoterol HFA 160 See Rx Instructions .Route 06/23/22 08/15/22 Rx mcg-4.5 mcg/actuation aerosol .COMPLEX #10.2 ea inhaler (Symbicort) fluticasone propionate 50 2 spray intranasal BID #15.8 mL 06/23/22 08/15/22 Rx mcg/actuation nasal spray,suspension bumetanide 2 mg tablet See Rx Instructions .Route .COMPLEX 07/18/22 08/15/22 History metoprolol succinate 50 mg 50 mg PO DAILY 07/18/22 08/15/22 History tablet,extended release 24 hr ferrous sulfate 324 mg (65 mg 324 mg PO .COMPLEX #30 tabs 08/21/22 Rx iron) tablet,delayed releas
[2022-08-25] VITALS (14 sets, daily range): BP systolic 146–173; BP diastolic 57–87; PULSE 64–91; RESP 13–28; TEMP 36.3–36.8; O2SAT 96–100; BMI 30.2
--- NOTE | ~2022-08-25 | XR_ITS ---
EXAMINATION: XR chest 1V portable DATE: 08/25/2022 18:36 INDICATION: Shortness of breath. TECHNIQUE: A single frontal view of the chest was obtained. COMPARISON: Chest 2 views 04/15/2018 FINDINGS: There is a diffuse interstitial pattern, consistent with mild pulmonary edema. No pleural e ffusion or pneumothorax. The heart size is normal. There are surgical clips in right axilla. IMPRESSION: 1. Mild pulmonary edema. Reviewed, dictated and finalized at location E. IMPRESSION: 1. Mild pulmonary edema.
--- NOTE | 2022-08-25 07:18 | WPDHPUPDATE1 ---
History and Physical Update Update Date/Time: 08/25/22 07:18 History and Physical has been reviewed, including an updated exam of the patient. There are NO changes in the patient's condition. Risks, benefits, and alternatives have been discussed and questions answered. Patient agrees to proceed with procedure.
--- NOTE | 2022-08-25 13:14 | WPDANESEPPF ---
Anes - Initial Pre Proc Eval Procedure: Operation Date: 08/25/22 14:[address] Guided Left Total Ethmoidectomy - Dario Argueta MD Date/Time: 08/25/22 13:14 Surgeon: Dario Argueta MD Pre Op Diagnosis: chronic sinusitis Patient Data Age: 86 Gender: F Height: 1.63 m Weight: 78.18 kg Allergies Allergy/AdvReac Type Severity Reaction Status Date / Time lisinopril Allergy Intermediate Hives Verified 08/15/22 14:32 codeine Allergy Unknown Unknown- Verified 08/15/22 14:32 UNABLE TO RECAL Home Medications Medication Instructions Recorded Confirmed Type exemestane 25 mg tablet 25 mg PO DAILY 01/17/20 08/15/22 History diltiazem HCl 120 mg 120 mg PO DAILY 02/25/22 08/15/22 History tablet,extended release 24 hr (Cardizem LA) sertraline 50 mg tablet 50 mg PO DAILY #90 tabs 04/17/22 08/15/22 Rx tiotropium bromide 2.5 2 inh inhalation QAM #4 grams 05/28/22 08/15/22 Rx mcg/actuation mist for inhalation (Spiriva Respimat) albuterol sulfate 90 mcg/actuation 2 puff inhalation Q4H PRN 06/10/22 08/15/22 Rx aerosol inhaler (Ventolin HFA) shortness of breath or wheezing #1 ea azelastine 137 mcg (0.1 %) nasal 1 - 2 spray intranasal BID PRN 06/20/22 08/15/22 Rx spray aerosol Allergy Symptoms #30 mL budesonide-formoterol HFA 160 See Rx Instructions .Route 06/23/22 08/15/22 Rx mcg-4.5 mcg/actuation aerosol .COMPLEX #10.2 ea inhaler (Symbicort) fluticasone propionate 50 2 spray intranasal BID #15.8 mL 06/23/22 08/15/22 Rx mcg/actuation nasal spray,suspension bumetanide 2 mg tablet See Rx Instructions .Route .COMPLEX 07/18/22 08/15/22 History metoprolol succinate 50 mg 50 mg PO DAILY 07/18/22 08/15/22 History tablet,extended release 24 hr ferrous sulfate 324 mg (65 mg 324 mg PO .COMPLEX #30 tabs 08/21/22 Rx iron) tablet,delayed release Patient hx anesthesia problems: none Family hx anesthesia problems: none Results Review: All pre-operative results and documents have been reviewed as part of the pre-operative evaluation. [facility] Past Medical History Medical History Adenomatous colon polyp Angioedema Arthritis of right wrist BMI 30.0-30.9,adult (Unknown) Colon cancer screening Degenerative arthritis of knee, bilateral Estrogen receptor positive status (ER+) Incisional hernia, without obstruction or gangrene Iron deficiency anemia due to chronic blood loss 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, estrogen receptor positive Osteoarthritis of right knee (Unknown) Port-A-Cath in place (~2018) SOB (shortness of breath) Surgical History Surgical History H/O right mastectomy History of hernia repair History of right knee surgery Family History Family History Father Family history of diabetes mellitus in first degree relative Family history of coronary artery disease Patient's father is in good health Mother Family history of lung cancer Sibling Family history of lung cancer Family history of malignant neoplasm of brain, Onset Age: 60 Other Diabetes mellitus Family history of cardiovascular disease Family history of kidney disease Social History Social History Smoking status: Former smoker Tobacco type: cigarettes Second hand tobacco smoke exposure: No Smoking end date: 02/16/61 Additional smoking assessment comments: STATES <PK/DAY/3YRS Alcohol intake: current Drinks per week: 3 Alcohol use details: DRINK Substance use: never Substance use type: does not use Lack of Transportation: No Lack of Food: Never True Current Housing: I Have Housing Concerned About Future Housing: No Difficulty Paying Gas/Electric Bills: No Difficulty Paying for Meds: No Currently U
[2022-08-25] MEDS: LACTATED RINGERS 1,000 ML 30 ML IV CONT ×2 (13:34→16:38)
[2022-08-25] MEDS: ACETAMINOPHEN 500 MG TABLET 1000 MG PO ×3 (13:39→20:58)
[2022-08-25] MEDS: ceFAZolin 2 GM/D5W 50 ML 2 GM/50 ML BAG IVPB (14:37)
[2022-08-25] MEDS: OXYMETAZOLINE HCL 0.05% NAS 15 ML BTL (*BKC) 1 SPRAY NASAL (15:12)
[2022-08-25] MEDS: MUPIROCIN 2% OINT 22 GM TUBE 1 APPLIC EACH NARE (15:30)
[2022-08-25] MEDS: ALBUTEROL SULFATE NEB 2.5 MG/3 ML INH INHALATION (16:23)
--- NOTE | 2022-08-25 16:25 | W.PM.PROC2 ---
Procedure Note - Detailed Date of Procedure 08/25/22 Pre-op Diagnosis chronic sinusitis Post-op Diagnosis Same Procedure Performed left-sided image guided total ethmoidectomy Surgeon Dario Argueta MD Anesthesia General Indications see above Findings yellow almost fatty polypoid tissue within a posterior ethmoid cell completely strip the mucosa and sent for pathologic analysis. Minimal bleeding throughout the procedure. Anterior ethmoid artery not violated everything was intact other than the ethmoid air cells. Description of Procedure Patient identified consent verified in preop. Patient brought operating room. Time-out performed. General anesthesia induced endotracheal tube secured. Patient prepped reposition procedure confirm 2nd time-out performed. Image guidance initiated and confirmed. Afrin-soaked pledgets placed for 5 minutes then removed. 0 degree endoscope utilized middle turbinate medialized. Ethmoidectomy performed with Kerrison image guidance frequent packing with Afrin-soaked pledgets as well as image guided microdebrider. Once the disease cell was located the mucosa was biopsied in strips for pathologic analysis. Again Afrin-soaked pledgets were utilized to control any bleeding. Once bleeding was under control Nova pack was placed. This help stent the middle turbinate medial as well as soak up any bleeding. Patient tolerated the procedure well. Total blood loss about 17 cc. I performed all dictated portions the procedure. No complications. Patient tolerated the procedure well. Care the patient given back to Anesthesiology patient taken to PACU. Estimated Blood Loss 17 Drains No Packing Yes ( Nova pack) Pathology Yes Complications No immediate complications Condition Stable Disposition PACU [facility] Billing Surgery - Charge Forward: Surgery Billing
--- NOTE | 2022-08-25 16:28 | SUR.PHASEI ---
Patient is getting a breathing treatment via respiratory.
[2022-08-25] MEDS: racEPINEPHrine 2.25% NEBU SOLN 0.5 ML VIAL.NEB INHALATION (16:30)
--- NOTE | 2022-08-25 17:29 | SUR.PHASEI ---
1727: RN called Dr. Argueta in regards to admitting patient.
--- NOTE | 2022-08-25 18:23 | ECG_ITS ---
Measurements Intervals [place] Rate: 70 P: 72 MI: 185 QRS: -9 QRSD: 85 T: 57 QT: 415 QTc: 448 Interpretive Statements SINUS RHYTHM NORMAL ECG COMPARED TO ECG 08/21/2022 10:47:34 NO SIGNIFICANT CHANGES Electronically Signed On 08-26-2022 11:42:36 CDT by Madi Pitts D.O.
[2022-08-25] MEDS: DEXAMETHASONE SOD PHOS INJ 4 MG/ML VIAL IV PUSH (18:34)
[2022-08-25 20:06] LABS: Hematocrit 34.6 % (37.0-47.0); Hemoglobin 11.2 g/dL (12.0-15.0); Mean Corpuscular HGB Conc 32.4 g/dl (32-36); Mean Corpuscular Hemoglobin 28.2 pg (26-34); Mean Corpuscular Volume 87.2 fl (80-100); Mean Platelet Volume 10.7 fl (7.4-10.4); Platelet Count Result 188 k/mm3 (150-375); Red Blood Count 3.97 M/mm3 (4.2-5.4); Red Cell Distribution Width 15.3 % (11.5-14.5); White Blood Count 8.5 K/mm3 (4.5-10.0)
[2022-08-25 20:15] LABS: Anion Gap 6 mmol/L (8-16); Blood Urea Nitrogen 14 mg/dL (7-17); Calcium 8.9 mg/dL (8.4-10.2); Carbon Dioxide 23 mmol/L (22-30); Chloride 102 mmol/L (98-107); Estimated CRCL calculation 46 ml/min; Estimated Glomerular Filt Rate > 60; Glucose 143 mg/dL (65-110); Potassium 3.9 mmol/L (3.4-5.0); Sodium 131 mmol/L (137-145)
[2022-08-25 20:21] LABS: Magnesium 1.8 mg/dL (1.6-2.3)
[2022-08-25] MEDS: BUMETANIDE INJ 1 MG/4 ML VIAL IV PUSH (20:59)
[2022-08-25] MEDS: BENZOCAINE/MENTHOL (*BKC) 18 EA LOZENGE 1 LOZENGE PO (20:59)
--- NOTE | 2022-08-25 21:58 | PC.NURSE ---
This patient, Tatianna Bailey, was admitted to Medical Room 348-01. Patient/family oriented to hospital policies and general routines including ID bracelet, bed and alarms, visiting hours, pain management, procedures, bathroom and other care routines, personal items, smoking policy, room service/diet, and visiting hours. Information on how to activate the Rapid Response Team has been discussed. Patient/Family are encouraged to report perceived risks to care and to ask questions if they do not understand what they are told or what they should do.
--- NOTE | 2022-08-26 01:12 | PM.IMHP ---
H&P: HPI History of Present Illness Date/Time: 08/25/22 18:00 Chief Complaint: Shortness of breath. Narrative: This is a very pleasant 86-year-old female with history of mild persistent asthma, sleep apnea, anemia, osteoarthritis, and remote history of breast cancer who is being directly admitted to the medical floor from the PACU for further treatment and evaluation of shortness of breath. The patient provides the following history. She has a chronic cough for which she has been evaluated by specialists in the field of pulmonology, gastroenterology, and otolaryngology. EGD last month showed evidence of gastritis and esophageal ring which was dilated and she was started on reflux medications however she has not been taking them as they do not help. Her asthma has been pretty well controlled and not much of an issue. She saw Dr. Argueta regarding her cough, postnasal drip, and chronic sinusitis. Today she had a total left-sided ethmoidectomy and her surgery seemed to go smoothly. She did have some elevated blood pressures and received IV hydralazine x1. In the PACU she had a coughing episode near extubation and she started to bleed into the posterior pharynx. She has been short of breath and tachypneic since that time. It was thought that she would benefit from overnight observation. At the time my evaluation she reports feeling a bit anxious and slightly short of breath. She complains of some discomfort in the throat. She does not feel wheezy and her cough is as per usual. She had some crackles on my exam and chest x-ray shows mild pulmonary edema and she was given a dose of IV Bumex which she typically takes daily. She denies fever, chills, sweats, chest pain, pleuritic pain, palpitations, nausea, and vomiting. Review of Systems Review of Systems: Twelve systems were reviewed and are negative except for as per HPI. [facility] Past Medical History Medical History (Updated 08/26/22 @ 17:51 by Amanda Rodriguez PA-C) Adenomatous colon polyp Degenerative arthritis of knee, bilateral Diastolic dysfunction Estrogen receptor positive status (ER+) Iron deficiency anemia due to chronic blood loss 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, estrogen receptor positive Osteoarthritis of right knee (Unknown) Port-A-Cath in place (~2017) Surgical History Surgical History (Updated 08/26/22 @ 17:51 by Amanda Rodriguez PA-C) History of hernia repair History of right knee surgery History of right mastectomy Family History Family History Father Family history of diabetes mellitus in first degree relative Family history of coronary artery disease Patient's father is in good health Mother Family history of lung cancer Sibling Family history of lung cancer Family history of malignant neoplasm of brain, Onset Age: 60 Other Diabetes mellitus Family history of cardiovascular disease Family history of kidney disease Social History Social History Smoking packs per day: 0.5 Smoking cigarettes per day: 10.0 Years smoked: 20 Smoking pack-years: 10.00 Smoking status: Former smoker Tobacco type: cigarettes Second hand tobacco smoke exposure: No Smoking end date: 02/16/61 Additional smoking assessment comments: STATES <PK/DAY/3YRS Alcohol intake: current Drinks per week: 4 Alcohol use details: DRINK Substance use: never Substance use type: does not use Lack of Transportation: No Lack of Food: Never True Current Housing: I Have Housing Concerned About Future Housing: No Difficulty Paying Gas/Electric Bills: No Difficulty Paying for Meds: No Currently Unemployed: No Education: High School Diploma/GED Difficulty w/ Childcare or Family Care: No Living arrangements: with family Additional living arrangements comments: LIVES WITH [employer] Occupation/Education: retired
[2022-08-26] MEDS: ALBUTEROL SULFATE (*SP) AEROSOL 1 PUFF 2 PUFF INHALATION (04:58)
[2022-08-26 05:39] VITALS: BP 143/54; PULSE 83; RESP 18; TEMP 36.4; O2SAT 98
[2022-08-26 06:25] LABS: Hemoglobin 11.3 g/dL (12.0-15.0); Mean Corpuscular HGB Conc 32.3 g/dl (32-36); Mean Corpuscular Hemoglobin 28.3 pg (26-34); Mean Corpuscular Volume 87.5 fl (80-100); Mean Platelet Volume 11.4 fl (7.4-10.4); Platelet Count Result 200 k/mm3 (150-375); Red Cell Distribution Width 15.4 % (11.5-14.5); White Blood Count 6.3 K/mm3 (4.5-10.0)
[2022-08-26 06:41] LABS: Anion Gap 6 mmol/L (8-16); Blood Urea Nitrogen 17 mg/dL (7-17); Calcium 8.7 mg/dL (8.4-10.2); Carbon Dioxide 24 mmol/L (22-30); Chloride 98 mmol/L (98-107); Estimated CRCL calculation 41 ml/min; Estimated Glomerular Filt Rate 60; Glucose 156 mg/dL (65-110); Magnesium 1.7 mg/dL (1.6-2.3); Potassium 3.6 mmol/L (3.4-5.0); Sodium 128 mmol/L (137-145)
[2022-08-26 07:05] VITALS: PULSE 78; RESP 18; O2SAT 97
[2022-08-26] MEDS: UMECLIDINIUM BROMIDE 62.5 MCG ELLIPTA 1 PUFF INHALATION (07:07)
--- NOTE | 2022-08-26 07:35 | PM.PNGS ---
Progress Note: A&P Assessment and Plan (1) Shortness of breath: Code(s): R06.02 - Shortness of breath Status: Acute Assessment and Plan: Would recommend starting low dose prednisone (I generally do 5mg per day for about a week) and low dose doxycycline (100mg for 7-14 days). If the patient is discharged later today, it would be reasonable to hold off on these as she has prescriptions waiting for her. Tylenol and ibuprofen for pain. Perhaps Tessalon Perles for cough as well as any breathing treatments/inhalers she usually uses/would benefit from. Would also recommend physical therapy to assist and evaluate the patient today. She reports that she feels like just laying and bed. Would also benefit from irrigating her nose with normal saline. If she's discharged today, she can begin when home. If staying another night, would start in house. Could potentially use a large volume syringe. I can help with this later today. 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 Also reports increased cough. Denies any bleeding. Also reports feeling improved since immediately post op. Review of Systems Review of Systems: All systems reviewed & are unremarkable except as noted in HPI and below Exam Narrative: Small amount of clot in the left nasal passage, edematous uvula, improved from post op appearance. Objective Data Vital Signs Vital Signs: Vital Signs - 24 hr 08/25/22 13:37 08/25/22 15:44 08/25/22 16:00 Temperature 36.8 C 36.3 C L Pulse Rate 64 89 81 Respiratory Rate 16 13 23 H Blood Pressure 173/65 H 157/78 H 146/66 H Pulse Oximetry 100 98 99 Oxygen Delivery Room Air Simple Face Mask Face Tent Oxygen Flow Rate 6 10 Fraction of Inspired Oxygen 98 08/25/22 16:15 08/25/22 16:30 08/25/22 16:45 Temperature Pulse Rate 89 79 74 Respiratory Rate 25 H 25 H 19 Blood Pressure 164/79 H 162/86 H 157/57 H Pulse Oximetry 99 99 100 Oxygen Delivery Face Tent Face Tent Face Tent Oxygen Flow Rate 10 10 10 Fraction of Inspired Oxygen 98 98 98 08/25/22 17:00 08/25/22 17:15 08/25/22 17:19 Temperature Pulse Rate 91 81 74 Respiratory Rate 20 15 28 H Blood Pressure 156/87 H 161/73 H 147/73 H Pulse Oximetry 96 98 100 Oxygen Delivery Room Air Room Air Room Air Oxygen Flow Rate Fraction of Inspired Oxygen 08/25/22 17:49 08/25/22 18:19 08/25/22 18:49 Temperature Pulse Rate 71 77 68 Respiratory Rate 24 H 24 H 22 H Blood Pressure 160/78 H 164/87 H 152/68 H Pulse Oximetry 100 96 99 Oxygen Delivery Room Air Room Air Room Air Oxygen Flow Rate Fraction of Inspired Oxygen 08/25/22 19:19 08/25/22 19:45 08/25/22 20:00 Temperature 36.4 C Pulse Rate 70 67 Respiratory Rate 21 H 18 Blood Pressure 166/82 H 154/69 H Pulse Oximetry 97 98 Oxygen Delivery Room Air Room Air Oxygen Flow Rate Fraction of Inspired Oxygen 08/26/22 05:39 Temperature 36.4 C Pulse Rate 83 Respiratory Rate 18 Blood Pressure 143/54 H Pulse Oximetry 98 Oxygen Delivery Oxygen Flow Rate Fraction of Inspired Oxygen Intake/Output Intake/Output: Intake & Output 08/23/22 08/24/22 08/25/22 08/26/22 23:59 23:59 23:59 23:59 Intake Total 800 600 Output Total 0 Balance 800 600 Meds/Results Medications: Active Medications Generic Name Dose Route Start Last Admin Trade Name Freq PRN Reason Stop Dose Admin Acetaminophen 1,000 mg 08/25/22 20:46 08/25/22 20:58 Acetaminophen 500 Mg Tablet PO 1,000 mg Q6H PRN Administration Mild Pain (1-3) or Fever Albuterol 2 puff 08/26/22 01:25 08/26/22 04:58 Albuterol Sulfate (*Sp) Aerosol 1 Puff INHALATION 2 puff Q4H PRN Administration shortness of breath or wheezing Benzocaine 1 lozenge 08/25/22 20:49 08/25/22 20:59 Benzocaine/Menthol (*Bkc) 18 Ea Lozenge PO 1 lozen
[2022-08-26] MEDS: SERTRALINE HCL 50 MG TABLET PO (08:54)
[2022-08-26] MEDS: BUMETANIDE 1 MG TABLET PO (08:54)
[2022-08-26 08:55] VITALS: PULSE 82
[2022-08-26] MEDS: METOPROLOL SUCCINATE EXT REL 50 MG TABCR PO (08:55)
[2022-08-26 14:00] VITALS: BP 118/46; PULSE 76; RESP 16; TEMP 36.8; O2SAT 98
[2022-08-26] MEDS: ACETAMINOPHEN 500 MG TABLET 1000 MG PO (14:46)
--- NOTE | 2022-08-26 14:58 | WPDANESPN ---
Anes - Prog Note Post-Op Date/Time: 08/26/22 14:58 Cardiovascular status: normal Respiratory status: normal Airway patency: baseline Mental status: baseline Post-Op hydration status: normal Vital Signs: Last Vital Signs Temp 98.3 F 08/26/22 14:00 Pulse 76 08/26/22 14:00 Resp 16 08/26/22 14:00 BP 118/46 L 08/26/22 14:00 Pulse Ox 98 08/26/22 14:00 O2 Del Method Room Air 08/26/22 08:00 O2 Flow Rate 10 08/25/22 16:45 FiO2 98 08/25/22 16:45 Pain Score (VAS): 3 I/O: Intake & Output 08/25/22 08/26/22 08/26/22 23:59 07:59 15:59 Intake Total 750 600 560 Output Total 0 Balance 750 600 560 Laboratory Tests 08/26/22 05:45 08/26/22 05:45 08/25/22 08/26/22 20:00 05:45 WBC 8.5 6.3 RBC 3.97 L 4.00 L Hgb 11.2 L 11.3 L Hct 34.6 L 35.0 L MCV 87.2 87.5 MCH 28.2 28.3 MCHC 32.4 32.3 RDW 15.3 H 15.4 H Plt Count 188 200 MPV 10.7 H 11.4 H Sodium 131 L 128 L Potassium 3.9 3.6 Chloride 102 98 Carbon Dioxide 23 24 Anion Gap 6 L 6 L BUN 14 17 Creatinine 0.80 0.90 Estim Creat Clear Calc 46 41 Estimated GFR > 60 60 Glucose 143 H 156 H Calcium 8.9 8.7 Magnesium 1.8 1.7 Post-procedural complaints: none Patient Feedback: Patient satisfied with anesthetic care.
--- NOTE | 2022-08-26 15:48 | WPDPN ---
Progress Note: A&P Assessment and Plan (1) Shortness of breath: Code(s): R06.02 - Shortness of breath Status: Acute (2) Pulmonary edema: Code(s): J81.1 - Chronic pulmonary edema Status: Acute (3) Diastolic dysfunction: Code(s): I51.89 - Other ill-defined heart diseases Status: Acute (4) Hypertension: Code(s): I10 - Essential (primary) hypertension Status: Acute (5) Asthma: Qualifiers: Asthma severity: mild Asthma persistence: persistent Asthma complication type: unspecified Qualified Code(s): J45.30 - Mild persistent asthma, uncomplicated Code(s): J45.909 - Unspecified asthma, uncomplicated Status: Acute Plan The patient has been short of breath since surgery as per HPI. She has some crackles and mild wheezing on exam and I suspect her shortness of breath his due to pulmonary edema and less likely related to asthma. Pulmonary embolism is considered but seems unlikely. IV Bumex 1 mg x 1 ordered. Continue maintenance inhalers. Blood pressure should improve with diuresis. Continue antihypertensives. Dexamethasone 4 mg IV x1 for swelling related to suctioning of the oropharynx. Can continue prednisone 5 mg for [address] Argueta. 08/26/2022 interval history: Patient still complains of shortness of breath and tired, patient being diuresed, and will be seen by ENT and further recommendation to follow, patient is participating in PT OT will continue to monitor. Subjective Date/time seen: 08/26/22 15:48 Interval history: Shortness of breath. HPI-Narrative: This is a very pleasant 86-year-old female with history of mild persistent asthma, sleep apnea, anemia, osteoarthritis, and remote history of breast cancer who is being directly admitted to the medical floor from the PACU for further treatment and evaluation of shortness of breath. The patient provides the following history. She has a chronic cough for which she has been evaluated by specialists in the field of pulmonology, gastroenterology, and otolaryngology. EGD last month showed evidence of gastritis and esophageal ring which was dilated and she was started on reflux medications however she has not been taking them as they do not help. Her asthma has been pretty well controlled and not much of an issue. She saw Dr. Argueta regarding her cough, postnasal drip, and chronic sinusitis. Today she had a total left-sided ethmoidectomy and her surgery seemed to go smoothly. She did have some elevated blood pressures and received IV hydralazine x1. In the PACU she had a coughing episode near extubation and she started to bleed into the posterior pharynx. She has been short of breath and tachypneic since that time. It was thought that she would benefit from overnight observation. At the time my evaluation she reports feeling a bit anxious and slightly short of breath. She complains of some discomfort in the throat. She does not feel wheezy and her cough is as per usual. She had some crackles on my exam and chest x-ray shows mild pulmonary edema and she was given a dose of IV Bumex which she typically takes daily. She denies fever, chills, sweats, chest pain, pleuritic pain, palpitations, nausea, and vomiting. 08/26/2022 interval history: Patient still complains of shortness of breath and tired, patient being diuresed, and will be seen by ENT and further recommendation to follow, patient is participating in PT OT will continue to monitor. Review of Systems Review of Systems: Twelve systems were reviewed and are negative except for as per HPI. All systems reviewed & are unremarkable except as noted in HPI and below Exam Narrative: Patient is comfortable, NAD HEENT: eyes are clear and none icteric LUNGS: Normal respiratory effort ABD: Not distended Lower extremities: no edema SKIN: nonjaundiced Neuro: grossly intact. Objective Data Vital Signs Vital Signs: Vital Signs - 24 hr 08/25/22 16:00 07
--- NOTE | 2022-08-26 15:58 | PM.PNGS ---
Progress Note: A&P Assessment and Plan (1) Chronic sinusitis: Code(s): J32.9 - Chronic sinusitis, unspecified Status: Acute Assessment and Plan: okay for discharge from an otolaryngologic standpoint. Please see surgical discharge instructions. Please have the patient call the office to follow-up Thursday [phone] Subjective Subjective Date/Time Seen: 08/26/22 15:58 Interval history: Patient reports feeling better this p.m. some pressure on the left side with there is packing Review of Systems Review of Systems: All systems reviewed & are unremarkable except as noted in HPI and below Exam Narrative: no bleeding from the nasal passages Objective Data Vital Signs Vital Signs: Vital Signs - 24 hr 08/25/22 16:00 08/25/22 16:15 08/25/22 16:30 Temperature Pulse Rate 81 89 79 Respiratory Rate 23 H 25 H 25 H Blood Pressure 146/66 H 164/79 H 162/86 H Pulse Oximetry 99 99 99 Oxygen Delivery Face Tent Face Tent Face Tent Oxygen Flow Rate 10 10 10 Fraction of Inspired Oxygen 98 98 98 08/25/22 16:45 08/25/22 17:00 08/25/22 17:15 Temperature Pulse Rate 74 91 81 Respiratory Rate 19 20 15 Blood Pressure 157/57 H 156/87 H 161/73 H Pulse Oximetry 100 96 98 Oxygen Delivery Face Tent Room Air Room Air Oxygen Flow Rate 10 Fraction of Inspired Oxygen 98 08/25/22 17:19 08/25/22 17:49 08/25/22 18:19 Temperature Pulse Rate 74 71 77 Respiratory Rate 28 H 24 H 24 H Blood Pressure 147/73 H 160/78 H 164/87 H Pulse Oximetry 100 100 96 Oxygen Delivery Room Air Room Air Room Air Oxygen Flow Rate Fraction of Inspired Oxygen 08/25/22 18:49 08/25/22 19:19 08/25/22 19:45 Temperature 36.4 C Pulse Rate 68 70 67 Respiratory Rate 22 H 21 H 18 Blood Pressure 152/68 H 166/82 H 154/69 H Pulse Oximetry 99 97 98 Oxygen Delivery Room Air Room Air Oxygen Flow Rate Fraction of Inspired Oxygen 08/25/22 20:00 08/26/22 05:39 08/26/22 07:05 Temperature 36.4 C Pulse Rate 83 78 Respiratory Rate 18 18 Blood Pressure 143/54 H Pulse Oximetry 98 97 Oxygen Delivery Room Air Room Air Oxygen Flow Rate Fraction of Inspired Oxygen 08/26/22 07:05 08/26/22 08:55 08/26/22 08:00 Temperature Pulse Rate 78 82 Respiratory Rate 18 Blood Pressure Pulse Oximetry Oxygen Delivery Room Air Oxygen Flow Rate Fraction of Inspired Oxygen 08/26/22 14:00 Temperature 36.8 C Pulse Rate 76 Respiratory Rate 16 Blood Pressure 118/46 L Pulse Oximetry 98 Oxygen Delivery Oxygen Flow Rate Fraction of Inspired Oxygen Intake/Output Intake/Output: Intake & Output 08/23/22 08/24/22 08/25/22 08/26/22 23:59 23:59 23:59 23:59 Intake Total 800 1160 Output Total 0 Balance 800 1160 Meds/Results Medications: Active Medications Generic Name Dose Route Start Last Admin Trade Name Freq PRN Reason Stop Dose Admin Acetaminophen 1,000 mg 08/25/22 20:46 08/26/22 14:46 Acetaminophen 500 Mg Tablet PO 1,000 mg Q6H PRN Administration Mild Pain (1-3) or Fever Albuterol 2 puff 08/26/22 01:25 08/26/22 04:58 Albuterol Sulfate (*Sp) Aerosol 1 Puff INHALATION 2 puff Q4H PRN Administration shortness of breath or wheezing Benzocaine 1 lozenge 08/25/22 20:49 08/25/22 20:59 Benzocaine/Menthol (*Bkc) 18 Ea Lozenge PO 1 lozenge PRN PRN Administration Sore Throat Bumetanide 1 mg 08/26/22 09:00 08/26/22 08:54 Bumetanide 1 Mg Tablet PO 1 mg DAILY NICK Administration Diltiazem HCl 120 mg 08/26/22 09:00 08/26/22 08:55 Diltiazem Hcl Cd 120 Mg Cap.Sa.24h PO 120 mg DAILY NICK Administration Metoprolol Succinate 50 mg 08/26/22 09:00 08/26/22 08:55 Metoprolol Succinate Ext Rel 50 Mg Tabcr PO 50 mg DAILY NICK Administration Miscellaneous Information 0 each 08/26/22 01:35 08/26/22 11:48 Exemestane 25 Mg Tablet- Nonformulary. Please Obtain A Home Supply If Possible. XX 09/25/22 01:
--- NOTE | 2022-08-27 10:22 | PM.DS ---
DS: Admitting Diagnosis Discharge Date 08/26/22 Admitting Diagnosis Postop shortness of breath DS: Discharge Diagnosis Discharge Diagnosis Plan same resolved DS: Summary Hospital Course Hospital Course: patient admitted treated with steroids over the subsequent 24 hours reported shortness of breath resolved 50 resolved feeling back to baseline with some facial pressure which is normal for the type of surgery she had Time Spent with Patient Time attestation: Total time spent providing and/or coordinating discharge services: Exam Narrative: normal exam some clot discharge in the left nasal passage normal after the type of surgery DS: Data Data Completed and Pending Pending studies at discharge: Pending at discharge 08/25/22 15:24 Surgical [PTH] Routine Discharge Plan Discharge Consulting providers: Nicholas Alas; Kiana Gao; Amanda Rodriguez; Madi Pitts; Satish Vasquez V.; John Orr Discharging Clinician: Dario Argueta Patient Disposition: Home, Self-Care Activity: as tolerated Diet: heart healthy Discharge Instructions: Please call to confirm your follow up appointment next week Thursday 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 Sleep with the head of bed elevated for 2-3 days No strenuous activity for one week. Week 2, 50% activity Very very gentle nose blowing is ok. Your nose has nasopore packing, you may blow some of this out, that's ok. It's normal to bleed, keep gauze taped underneath your nose and change as needed, if you're not bleeding, no need for gauze Use Afrin if the bleeding is annoying or bleeding a significant amount. I'd actually recommend using this the first night. If you use the afrin use one big squirt down the left side two times per day. Only use for the next 2-3 days if you do use this. Begin rinsing your nose two times per day, remember to use one saline packet per bottle. Rinse 1/2 bottle to 1 bottle each time. Start this the day after surgery. Tylenol and ibuprofen for pain. You have an allergy listed to narcotic pain medications. If needed, please call and I prescribe you a narcotic pain medication if the pain is severe. No other sprays or rinses for the time being Take your prednisone daily, take it in the am beginning tomorrow Take your daily antibiotic. I always recommend taking a daily probiotic as well. This can be any probiotic purchased over the counter. To get a hold of me after hours, please call the office number, it will transfer you. [phone]. I try to sleep from about 10pm to 5am but am always available for any emergencies. Hold onto the ointment. You'll use this once I clean the packing out. Patient Instructions: Heart Failure (DC) Stand Alone Forms: General Discharge Instructions Follow-up/Referrals: Dario Argueta MD [Physician] - Discharge Medications: New doxycycline hyclate 100 mg tablet 100 mg PO DAILY Qty: 7 0RF prednisone 5 mg tablet 5 mg PO DAILY Qty: 7 0RF Rx Instructions: Take in am Continued Cardizem LA 120 mg tablet extended release 24 hr 120 mg PO DAILY exemestane 25 mg tablet 25 mg PO DAILY Rx Instructions: must administer after a meal azelastine 137 mcg (0.1 %) aerosol,spray 1 - 2 spray intranasal BID PRN (Reason: Allergy Symptoms) Qty: 30 0RF Rx Instructions: administer into each nostril Spiriva Respimat 2.5 mcg/actuation mist 2 inh inhalation QAM Qty: 4 3RF metoprolol succinate 50 mg tablet extended release 24 hr 50 mg PO DAILY bumetanide 2 mg tablet See Rx Instructions .ROUTE .COMPLEX Rx Instructions: 1MG EVERY OTHER DAY sertraline 50 mg tablet 50 mg PO DAILY Qty: 90 1RF Patient Comments: QAM albuterol sulfate [Ventolin HFA] 90 mcg/actuation HFA aerosol inhaler 2 puff inhalation Q4H PRN (Reason: shortness of breath or wheezing) Qty: 1 2RF fluticasone propionate 50 mcg/ac
== END 2022-08-26 18:00 | disposition home or self-care (01) ==
LOC: ANH3MED 19:27
PROVIDERS: Physician Assistant; Admitting Provider Internal Medicine; PCP Family Medicine; Visit Provider Otolaryngology
PROC: (CPT 31255; principal; 2022-08-25 14:30)
DX: D14.0 Benign neoplasm of middle ear, nasal cavity and accessory sinuses (principal); J32.9 Chronic sinusitis, unspecified; R09.82 Postnasal drip; F10.90 Alcohol use, unspecified, uncomplicated; J81.1 Chronic pulmonary edema; J45.30 Mild persistent asthma, uncomplicated; G47.33 Obstructive sleep apnea (adult) (pediatric); D64.9 Anemia, unspecified; I51.89 Other ill-defined heart diseases; M19.90 Unspecified osteoarthritis, unspecified site; Z85.3 Personal history of malignant neoplasm of breast; Z87.891 Personal history of nicotine dependence; Z79.51 Long term (current) use of inhaled steroids; Z79.52 Long term (current) use of systemic steroids; Z79.899 Other long term (current) drug therapy
CPT/HCPCS: 31255; 36415; 71045; 80048; 83735; 85027; 88305; 88311; 93005; 94640; A9270; G0378; J0690; J1100; J2405; J2704; J3010; J7120

== ENCOUNTER 2022-11-03 08:52 | Outpatient (CLI) | payer MEDICARE, OTHER, SELFPAY ==
--- NOTE | ~2022-11-03 | CT_ITS ---
Clinical Indication: Lung nodule CT Scan of the Chest with Contrast: Technique: Contiguous sections were acquired throughout the chest after intravenous administration of 70 cc of Omnipaque 350. Dose reduction technique was used on this scan by utilizing automated exposu re control and iterative reconstruction technique. The dose-length product (DLP) was 141.81 mGy-cm. COMPARISON: 02/18/2022 Findings: There is no evidence of any significant mediastinal, hilar or axillary lymphadenopathy. No large cent ral pulmonary embolus seen. There is no evidence of aortic dissection or aneurysm. No pericardial eff usion. Minimal bilateral pleural effusions are present, right larger than left. Basilar subcentimeter nodules in the peripheral right upper lobe are resolved. There is probable mini mal atelectatic change in the lungs. There is probable focal postinfarct or scarring in the right upp er lobe. Pleural-based density in the right lower lobe is present (axial image 76), likely focal atel ectasis.. Images through the upper abdomen reveal no abnormalities. Impression: No suspicious pulmonary nodule seen. Minimal pleural effusions with probable minimal atelectatic changes. Probable focal post inflammatory change right upper lobe. Peripheral nodules in the right upper lobe on prior exam are resolved. Reviewed, dictated and finalized at location . Impression: No suspicious pulmonary nodule seen. Minimal pleural effusions with probable minimal atelectatic changes. Probable focal post inflammatory change right upper lobe. Peripheral nodules in the right upper lobe on prior exam are resolved.
[2022-11-03 09:31] LABS: Estimated Glomerular Filt Rate 43
[2022-11-03 10:26] LABS: Iron 46 ug/dL (37-170)
[2022-11-03 10:35] LABS: Percent Iron Saturation 12 % (20-50)
[2022-11-03 11:03] LABS: Ferritin 8.81 ng/mL (11.1-264)
== END 2022-11-03 08:53 | disposition home or self-care (01) ==
PROVIDERS: PCP Family Medicine; Referring Provider Physician Assistant; Visit Provider Internal Medicine Hematology & Oncology
DX: R91.1 Solitary pulmonary nodule (principal); D64.9 Anemia, unspecified
CPT/HCPCS: 71260; 82728; 83540; 83550; Q9967

== ENCOUNTER 2023-01-09 08:27 | Outpatient (RCR) | payer MEDICARE, OTHER, SELFPAY | END 2023-04-06 23:59 | disposition home or self-care (01) | LOC: ANHLAB 08:27 | PROVIDERS: PCP Family Medicine; Visit Provider Internal Medicine Critical Care Medicine | DX: J44.9 Chronic obstructive pulmonary disease, unspecified (principal) | CPT/HCPCS: 87015; 87070; 87102; 87116; 87205; 87206 ==

== ENCOUNTER 2023-01-22 14:02 | Outpatient (CLI) | payer MEDICARE, OTHER, SELFPAY ==
[2023-01-22 16:18] LABS: Procalcitonin 0.1 ng/mL
== END 2023-01-22 14:03 | disposition home or self-care (01) ==
LOC: ANHLAB 14:02
PROVIDERS: PCP Family Medicine; Visit Provider Internal Medicine Critical Care Medicine
DX: J44.9 Chronic obstructive pulmonary disease, unspecified (principal)
CPT/HCPCS: 36415; 84145; 86606

== ENCOUNTER 2023-01-26 15:57 | Inpatient (IN) | payer MEDICARE, OTHER, SELFPAY ==
[2023-01-26] VITALS (20 sets, daily range): BP systolic 114–238; BP diastolic 58–112; PULSE 93–120; RESP 15–28; TEMP 36.9–37; O2SAT 85–100; BMI 33.3
--- NOTE | ~2023-01-26 | XR_ITS ---
EXAMINATION: XR chest 1V portable INDICATION: RSV infection TECHNIQUE: Portable AP chest at 0751 hours COMPARISON: 02/01/2020 FINDINGS: 01/31/2023 the lungs are free of acute opacities. No pleural effusion or pneumothorax. The cardiomediastinal silhouette is normal. Surgical clips are noted in the right axilla. IMPRESSION: 1. No acute cardiopulmonary abnormality. Reviewed, dictated and finalized at location B. EACH SPECIALIST
--- NOTE | ~2023-01-26 | XR_ITS ---
XR chest 2V 02/08/2023 10:07 Indication: Leukocytosis Procedure: 2 view chest Comparison: Comparison to multiple prior studies sequentially, with oldest reviewed study dated 01/16. Findings: Small pleural effusions. Heart size normal. No focal pneumonia, edema or pneumothorax. The lungs are hyperinflated which is consistent with, but not diagnostic of chronic obstructive pulmonary disease. Impression: 1: Small pleural effusions. Reviewed, dictated and finalized at location A. OARD SYSTEM OPERATOR Impression: 1: Small pleural effusions.
--- NOTE | ~2023-01-26 | XR_ITS ---
MODIFIED ESOPHAGRAM HISTORY: Witnessed aspiration and desaturations TECHNIQUE: Modified barium esophagram was performed on 02/02/2023. I administered fluoroscopy and per formed the exam with speech pathologist. Patient was seated for lateral fluoroscopic imaging for ing estion of thin liquids, pudding, solids and quantified amounts, followed by thin liquids in uncontrol led amounts. This was recorded on tape. A single fluoroscopic spot image was also recorded. The DAP f or this procedure was 1.549 Gycm2. The amount of fluoroscopy time used during this procedure was 1.6 minutes. FINDINGS: Oral stage: Adequate function. Pharyngeal stage: Reduced laryngeal elevation and tongue base retraction. There is laryngeal penetrat ion without aspiration with multiple consistencies. Cervical/esophageal stage: Adequate function. IMPRESSION: Pharyngeal dysphagia with laryngeal penetration without aspiration with multiple consiste ncies. Please correlate with speech pathologist findings and specific feeding recommendations. Reviewed, dictated and finalized at location A. WARE INSTALLATION COORDINATOR IMPRESSION: Pharyngeal dysphagia with laryngeal penetration without aspiration with multiple consistencies. Please correlate with speech pathologist findings and specific feeding recommendations.
--- NOTE | ~2023-01-26 | CT_ITS ---
EXAMINATION: CT facial bones wo con DATE: 01/29/2023 11:50 INDICATION: Difficulty breathing through nose. TECHNIQUE: Computed tomography (CT) of the facial bones and maxillofacial region was performed withou t intravenous contrast. Automated exposure control and iterative reconstruction technique were employ ed. The dose-length product was 618.24 mGy-cm. COMPARISON: CT sinuses 07/03/2022 FINDINGS: There are likely changes of ocular lens replacement surgeries. There is rightward deviation of the nasal septum. There is mild mucosal thickening in the ethmoid sinuses. There are Paco cells bilaterally. Right ostiomeatal unit is patent. There is occlusion of left ostiomeatal unit. The nasa l cavity is normal. There is severe cervical spondylosis. IMPRESSION: 1. Mild mucosal thickening in the paranasal sinuses with occlusion of left ostiomeatal unit. 2. Rightward deviation of the nasal septum. Reviewed, dictated and finalized at location A. SURG NURSE IMPRESSION: 1. Mild mucosal thickening in the paranasal sinuses with occlusion of left osti omeatal unit. 2. Rightward deviation of the nasal septum.
--- NOTE | ~2023-01-26 | XR_ITS ---
XR chest 1V portable 01/31/2023 02:53 Indication: Labored breathing Procedure: AP portable chest Comparison: Comparison to multiple prior studies sequentially, with oldest reviewed study dated 04/15. Findings: Heart size normal. No focal air space disease, pulmonary edema, pleural effusion or suspect ed pneumothorax. There is a skinfold overlying the left thorax. Impression: 1: No acute cardiopulmonary disease. Reviewed, dictated and finalized at location A. ENT REGISTRATION REP Impression: 1: No acute cardiopulmonary disease.
--- NOTE | ~2023-01-26 | CT_ITS ---
Clinical Indication: Pulmonary embolus CT Scan of the Chest with Contrast: Technique: Contiguous sections were acquired throughout the chest after intravenous administration of 100 cc of Omnipaque 350. Dose reduction technique was used on this scan by utilizing automated expos ure control and iterative reconstruction technique. The dose-length product (DLP) was 268.35 mGy-cm. Findings: There is no evidence of any significant mediastinal, hilar or axillary lymphadenopathy. There is no f illing defect in the pulmonary arterial tree to suggest pulmonary embolus. There is no evidence of ao rtic dissection or aneurysm. There is no evidence of pleural or pericardial effusion. The lungs are clear. No pulmonary nodules or infiltrates are noted. Images through the upper abdomen reveal no abnormalities. Impression: No evidence of pulmonary embolus, aortic dissection, or aortic aneurysm. Clear lungs. Reviewed, dictated and finalized at [facility]. MOTIVE SALES ASSOCIATE Impression: No evidence of pulmonary embolus, aortic dissection, or aortic aneurysm. Clear lungs.
--- NOTE | ~2023-01-26 | XR_ITS ---
EXAMINATION: XR chest 1V portable INDICATION: Shortness of breath TECHNIQUE: Portable AP chest at 1613 hours COMPARISON: 08/25/2022 FINDINGS: There are minimal airspace opacities of the lung bases. No pleural effusion or pneumothorax . The cardiomediastinal silhouette is normal. IMPRESSION: 1. Bibasilar airspace opacities, consistent with atelectasis versus pneumonia. Reviewed, dictated and finalized at location B. OOD FISHERMAN
--- NOTE | ~2023-01-26 | XR_ITS ---
MODIFIED ESOPHAGRAM HISTORY: Dysphagia for reevaluation TECHNIQUE: Modified barium esophagram was performed on 02/05/2023. I administered fluoroscopy and per formed the exam with speech pathologist. Patient was seated for lateral fluoroscopic imaging for ing estion of thin liquids, pudding, solids and quantified amounts, followed by thin liquids in uncontrol led amounts. This was recorded on tape. A single fluoroscopic spot image was also recorded. The DAP f or this procedure was 1.274 Gycm2. The amount of fluoroscopy time used during this procedure was 1.8 minutes. FINDINGS: Oral stage: Adequate function. Pharyngeal stage: Small amount of flash laryngeal penetration of thin liquids which cleared rapidly w ithout aspiration. Cervical/esophageal stage: Adequate function. IMPRESSION: Small amount of flash laryngeal penetration without aspiration. Please correlate with sp eech pathologist findings and specific feeding recommendations. Reviewed, dictated and finalized at location A. E CARE NURSING ASSISTANT IMPRESSION: Small amount of flash laryngeal penetration without aspiration. Pl ease correlate with speech pathologist findings and specific feeding recommenda tions.
--- NOTE | ~2023-01-26 | US_ITS ---
EXAMINATION: US venous doppler [facility] DATE: 01/27/2023 13:32 INDICATION: Lower limb swelling. TECHNIQUE: Grayscale ultrasound images without and with compression and Doppler ultrasound images of the bilateral lower extremity veins were obtained. COMPARISON: Ultrasound 08/08/2014 FINDINGS: The visualized portions of right common femoral vein, profunda (deep) femoral vein, femoral vein, pop liteal vein, peroneal veins, posterior tibial veins, and greater saphenous vein outflow are patent. The visualized portions of left common femoral vein, profunda femoral vein, femoral vein, popliteal v ein, peroneal veins, posterior tibial veins, and greater saphenous vein outflow are patent. IMPRESSION: 1. No deep venous thrombosis. Reviewed, dictated and finalized at location A. MINER BLASTING
--- NOTE | ~2023-01-26 | US_ITS ---
EXAMINATION: US venous doppler [facility] DATE: 01/27/2023 13:33 INDICATION: Upper limb swelling. TECHNIQUE: Grayscale ultrasound images without and with compression and Doppler ultrasound images of the bilateral upper extremity veins were obtained. COMPARISON: None. FINDINGS: The visualized portions of the right internal jugular vein, subclavian vein, axillary vein, brachial veins, basilic vein, cephalic vein, radial vein, and ulnar vein are patent. The visualized portions of the left internal jugular vein, subclavian vein, axillary vein, brachial v eins, basilic vein, cephalic vein, radial vein, and ulnar vein are patent. IMPRESSION: 1. No deep venous thrombosis. Reviewed, dictated and finalized at location A. ER SODA WORKER
--- NOTE | ~2023-01-26 | XR_ITS ---
EXAMINATION: XR chest 1V portable DATE: 01/30/2023 08:29 INDICATION: Asthma attack. TECHNIQUE: A single frontal view of the chest was obtained. COMPARISON: Chest single view 01/26/2023, chest CT 01/27/2023 FINDINGS: There is no pneumonia, pleural effusion, or pneumothorax. The heart size is normal. There a re surgical clips in right axilla. IMPRESSION: 1. No acute cardiopulmonary disease. Reviewed, dictated and finalized at location A. R INCIDENT HANDLER
[2023-01-26 16:14] LABS: Basophils Percent Auto 0.5 % (0.2-1.2); Eosinophils Absolute Auto 0.3 K/mm3 (0-0.3); Eosinophils Percent Auto 3.7 % (0-4.4); Hematocrit 37.8 % (37.0-47.0); Hemoglobin 11.8 g/dL (12.0-15.0); Immature Granulocyte Absolute 0.01 K/mm3 (0.00-0.031); Immature Granulocyte Percent A 0.1 % (0-0.5); Lymphocytes Absolute Auto 1.45 K/mm3 (0.9-3.2); Lymphocytes Percent Auto 19.6 % (18.3-44.2); Mean Corpuscular HGB Conc 31.2 g/dl (32-36); Mean Corpuscular Hemoglobin 27.3 pg (26-34); Mean Corpuscular Volume 87.3 fl (80-100); Mean Platelet Volume 10.4 fl (7.4-10.4); Monocytes Percent Auto 13.8 % (2.6-8.5); Neutrophils Absolute Auto 4.6 K/mm3 (1.3-6.7); Neutrophils Percent Auto 62.3 % (45.5-73.1); Platelet Count Result 255 k/mm3 (150-375); Red Blood Count 4.33 M/mm3 (4.2-5.4); White Blood Count 7.4 K/mm3 (4.5-10.0)
[2023-01-26] MEDS: MAGNESIUM SULF 2 GM/WATER 50ML 2 GM/50 ML BAG IVPB (16:16)
[2023-01-26] MEDS: methylPREDNISolone SOD SUCC 125 MG VIAL IV PUSH (16:16)
[2023-01-26] MEDS: ALBUTEROL SULFATE NEB 2.5 MG/3 ML INH 15 MG INHALATION (16:22)
[2023-01-26] MEDS: IPRATROPIUM BR 0.02% INH SOLN 0.5 MG/2.5 ML VIAL 1.5 MG INHALATION (16:23)
[2023-01-26 16:25] LABS: Alanine Aminotransferase 23 U/L (6-35); Albumin Level 4.5 g/dL (3.5-5.1); Alkaline Phosphatase 83 U/L (38-126); Anion Gap 5 mmol/L (8-16); Aspartate Amino Transferase 31 U/L (14-36); Bilirubin,Total 0.6 mg/dL (0.2-1.3); Blood Urea Nitrogen 9 mg/dL (7-17); Calcium 9.6 mg/dL (8.4-10.2); Carbon Dioxide 29 mmol/L (22-30); Chloride 100 mmol/L (98-107); Estimated CRCL calculation 42 ml/min; Estimated Glomerular Filt Rate 59; Glucose 109 mg/dL (65-110); Potassium 4.2 mmol/L (3.4-5.0); Sodium 134 mmol/L (137-145)
[2023-01-26 16:34] LABS: NT Pro B Type Natriuretic Pept 438 pg/mL (19.9-100)
--- NOTE | 2023-01-26 16:39 | ED.GENADULT ---
HPI - General Adult General Chief complaint: Shortness of Breath/Dyspnea Stated complaint: cant breathe Time Seen by Provider: 01/26/23 16:03 History of Present Illness HPI narrative: patient is an 87-year-old female who presents ER with shortness of breath. Referred here by From her. Patient has been off of steroids recently. Shortness of breath increasing last couple days. Normal speaking in 5 word sentences. Diffusely wheezing. Satting 85% upon arrival. Patient very anxious and tremulous. No known sick contacts. Related Data Home Medications Medication Instructions Recorded Confirmed exemestane 25 mg tablet 25 mg PO DAILY 01/17/20 01/05/23 diltiazem HCl 120 mg 120 mg PO DAILY 02/25/22 01/05/23 tablet,extended release 24 hr (Cardizem LA) metoprolol succinate 50 mg 50 mg PO DAILY 07/18/22 01/05/23 tablet,extended release 24 hr montelukast 10 mg tablet 10 mg PO DAILY 12/18/22 01/05/23 Allergies Allergy/AdvReac Type Severity Reaction Status Date / Time lisinopril Allergy Intermediate Hives Verified 01/01/23 11:11 codeine Allergy Unknown Unknown- Verified 01/01/23 11:11 UNABLE TO RECAL Review of Systems Review of Systems: ROS unobtainable: Yes unobtainable due to medical condition PMFSH Past Medical History Medical History Adenomatous colon polyp 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, bilateral Diastolic dysfunction Estrogen receptor positive status (ER+) Iron deficiency anemia due to chronic blood loss 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, estrogen receptor positive Osteoarthritis of right knee (Unknown) Port-A-Cath in place (~2017) Surgical History Surgical History History of hernia repair History of right knee surgery History of right mastectomy Family History Family History Father Family history of diabetes mellitus in first degree relative Family history of coronary artery disease Patient's father is in good health Mother Family history of lung cancer Sibling Family history of lung cancer Family history of malignant neoplasm of brain, Onset Age: 60 Other Diabetes mellitus Family history of cardiovascular disease Family history of kidney disease Social History Social History Smoking packs per day: 0.5 Smoking cigarettes per day: 10.0 Years smoked: 20 Smoking pack-years: 10.00 Smoking status: Former smoker Tobacco type: cigarettes Second hand tobacco smoke exposure: No Smoking end date: 02/16/61 Additional smoking assessment comments: STATES <PK/DAY/3YRS Alcohol intake: current Drinks per week: 4 Alcohol use details: DRINK Substance use: never Substance use type: does not use Current Housing: Decline to Answer Concerned About Future Housing: Decline to Answer Difficulty Paying Gas/Electric Bills: Decline to Answer Difficulty Paying for Meds: Decline to Answer Currently Unemployed: Decline to Answer Education: Decline to Answer Difficulty w/ Childcare or Family Care: Decline to Answer Living arrangements: with family Additional living arrangements comments: LIVES WITH SPOUSE [facility] Occupation/Education: retired Spiritual care concerns: No Agree to blood products: No Exam Narrative: GENERAL: ill-appearing, well-nourished, and in moderate distress. HEAD: Normocephalic, atraumatic. EYES: PERRL and EOMI. ENT: Mucous membranes moist. CHEST: decreased lung volumes, inspiratory and expiratory wheezing. Moderate respiratory distress. HEART: Tachycardic and regular. Normal peripheral pulses. ABDOMEN: Soft, nontender, nondistended. EXTREMITIES: Normal range of motion. No edema. SKIN: Warm, dry, no rash. NEURO: Alert and oriented x3. PSYCH: Norm
[2023-01-26 16:49] LABS: Influenza A QL RT-PCR Negative (Negative); Influenza B QL RT-PCR Negative (Negative); SARS-CoV-2 RNA PCR Negative (Negative)
[2023-01-26 17:02] LABS: Alveolar/Arterial O2 Gradient 433.9 mmHg; Base Excess ABG 0.6 mEq/l (+/-2.0); HCO3 ABG 22.6 mEq/l (22.0-26.0); Oxygen Content ABG 16.9 %vol (16.0-22.0); Oxygen Saturation ABG 99.7 % (95.0-100.0); Oxyhemoglobin 98.1 % THb (90.0-100.0); PCO2 ABG 28.3 mmHg (35.0-45.0); PO2 ABG 250.8 mmHg (80.0-100.0); PO2 FiO2 Ratio Arterial Blood 2.51 %; Total Hemoglobin 11.8 g/dL (12.0-18.0)
[2023-01-26 17:05] LABS: Device NON-INVASIVE VENT; Fractional Inspired Oxygen 100 %; Modified Allen's Test Pass; Site Drawn LEFT RADIAL
[2023-01-26 17:06] LABS: Non-Invasive Expiratory Pressure 6 CMH2O; Non-Invasive Inspiratory Pressure 12 CMH2O; Non-Invasive Vent Rate 18 /MIN
--- NOTE | 2023-01-26 17:58 | PM.IMHP ---
H&P: HPI History of Present Illness Date/Time: 01/26/23 18:00 Chief Complaint: Shortness of breath. Narrative: This is a very pleasant 87-year-old female with history of mild persistent asthma, sleep apnea, anemia, osteoarthritis, and remote history of breast cancer who presented to the emergency department via private vehicle from home for evaluation of shortness of breath. The patient provides the following history. She has not been feeling well for approximately 1 week with productive cough, wheezing, and shortness of breath. She was recently prescribed prednisone but once that ran out she once again started wheezing. Today she was much more short of breath and in fact was so short of breath that she was becoming very anxious and she was having difficulty speaking more than 4 to 5 words at a time. She called Dr. Oseguera's office and was directed to the ED. Her has not been sick. She denies fever, chills, and sweats. She has some chest tightness with the shortness of breath but no pleuritic pain. She denies nausea, vomiting, and diarrhea. She has chronic lower extremity edema which is unchanged. No orthopnea or paroxysmal nocturnal dyspnea. She denies history of venous thromboembolism. Upon arrival her SpO2 was 85% on room air and she was very anxious. She was immediately placed on BiPAP and she received a nebulizer treatment, methylprednisolone, magnesium sulfate with some improvement. She tested negative for influenza and COVID. Chest x-ray showed bibasilar airspace opacities which could be atelectasis or pneumonia. WBC count was normal and proBNP was 438. She is being admitted in this setting for further treatment and evaluation. Review of Systems Review of Systems: Twelve systems were reviewed and are negative except for as per HPI. [facility] Past Medical History Medical History (Updated 01/26/23 @ 23:43 by Amanda Rodriguez PA-C) Adenomatous colon polyp Degenerative arthritis of knee, bilateral Diastolic dysfunction Diastolic dysfunction Estrogen receptor positive status (ER+) Iron deficiency anemia due to chronic blood loss 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, estrogen receptor positive Osteoarthritis of right knee (Unknown) Port-A-Cath in place (~2018) Surgical History Surgical History History of hernia repair History of right knee surgery History of right mastectomy Family History Family History Father Family history of diabetes mellitus in first degree relative Family history of coronary artery disease Patient's father is in good health Mother Family history of lung cancer Sibling Family history of lung cancer Family history of malignant neoplasm of brain, Onset Age: 60 Other Diabetes mellitus Family history of cardiovascular disease Family history of kidney disease Social History Social History (Updated 01/26/23 @ 23:39 by Amanda Rodriguez PA-C) Social History: Surrogate medical decision maker: Urbano Bailey, son. Code status: Full code. Smoking packs per day: 0.5 Smoking cigarettes per day: 10.0 Years smoked: 20 Smoking pack-years: 10.00 Smoking status: Former smoker Tobacco type: cigarettes Second hand tobacco smoke exposure: No Smoking end date: 02/16/61 Additional smoking assessment comments: STATES <PK/DAY/3YRS Alcohol intake: current Drinks per week: 4 Alcohol use details: DRINK Substance use: never Substance use type: does not use Lack of Transportation: No Lack of Food: Never True Current Housing: I Have Housing Concerned About Future Housing: No Difficulty Paying Gas/Electric Bills: No Difficulty Paying for Meds: No Currently Unemployed: Decline to Answer Education: Decline to Answer Difficulty w/ Childcare or Family Care: No Living arrangements: with family Additional living arrangemen
[2023-01-26] MEDS: methylPREDNISolone SOD SUCC 125 MG VIAL 60 MG IV PUSH (18:12)
[2023-01-26] MEDS: ACETAMINOPHEN 325 MG TABLET 650 MG PO (19:43)
[2023-01-26] MEDS: IPRATROPIUM BR 0.02% INH SOLN 0.5 MG/2.5 ML VIAL INHALATION (20:24)
[2023-01-26] MEDS: ALBUTEROL SULFATE NEB 2.5 MG/3 ML INH INHALATION (20:24)
--- NOTE | 2023-01-26 21:27 | PC.NURSE ---
Attempted to call report to IMU. No answer.
--- NOTE | 2023-01-26 21:33 | PC.NURSE ---
Attempted to call report to IMU for the second time. No answer.
--- NOTE | 2023-01-26 21:36 | PC.NURSE ---
Attempted to call report for a third time. No answer.
--- NOTE | 2023-01-26 22:01 | ADMGEN ---
This patient, Tatianna Bailey, was admitted to IMU Room 210-01. Patient/family oriented to hospital policies and general routines including ID bracelet, bed and alarms, visiting hours, pain management, procedures, bathroom and other care routines, personal items, smoking policy, room service/diet, and visiting hours. Information on how to activate the Rapid Response Team has been discussed. Patient/Family are encouraged to report perceived risks to care and to ask questions if they do not understand what they are told or what they should do.
[2023-01-27] VITALS (29 sets, daily range): BP systolic 143–172; BP diastolic 61–77; PULSE 72–120; RESP 13–26; TEMP 36.3–36.6; O2SAT 95–100
[2023-01-27] MEDS: methylPREDNISolone SOD SUCC 125 MG VIAL 60 MG IV PUSH ×5 (00:35→23:30)
[2023-01-27] MEDS: ENOXAPARIN 80 MG/0.8 ML SYRINGE SUB-Q (00:35)
[2023-01-27] MEDS: IPRATROPIUM BR 0.02% INH SOLN 0.5 MG/2.5 ML VIAL INHALATION ×5 (01:48→19:45)
[2023-01-27] MEDS: ALBUTEROL SULFATE NEB 2.5 MG/3 ML INH INHALATION ×5 (01:48→20:03)
[2023-01-27 02:35] LABS: RSV RNA, RT-PCR Negative (Negative)
[2023-01-27] MEDS: dilTIAZem HCL CD 120 MG CAP.24HR PO (09:08)
[2023-01-27] MEDS: METOPROLOL SUCCINATE EXT REL 50 MG TABCR PO (09:09)
[2023-01-27] MEDS: BUMETANIDE 1 MG TABLET 2 MG PO (09:09)
[2023-01-27] MEDS: DOXYCYCLINE HYCLATE 100 MG TABLET PO ×2 (09:10→20:09)
[2023-01-27] MEDS: FERROUS SULFATE 325 MG TABLET DR BY MOUTH (09:10)
[2023-01-27] MEDS: ENOXAPARIN 40 MG/0.4 ML SYRINGE SUB-Q (09:10)
[2023-01-27] MEDS: SERTRALINE HCL 50 MG TABLET 100 MG PO (09:10)
[2023-01-27] MEDS: HYDROcodone/acetaminophen (*CRX) 5-325 MG TABLET 1 TAB PO ×3 (09:14→20:54)
[2023-01-27] MEDS: FLUTICASONE PROPIONATE 0.05% NA SPR 16 GM BTL (*BKC) 1 SPRAY NASAL ×2 (09:17→17:35)
[2023-01-27] MEDS: guaiFENesin/DEXTROMETHORPHAN 10 ML UDC PO ×3 (09:23→20:54)
--- NOTE | 2023-01-27 10:28 | ECHO_ITS ---
Patient Info Name: Tatianna Bailey Age: 87 years : 1935 Gender: Female Ht: 64 in Wt: 170 lbs BSA: 1.89 m2 HR: 97 bpm BP: 172 / 77 mmHg Exam Date: 01/27/2023 2:07 PM Exam Location: Echo Lab Patient Status: Inpatient Admit Date: 01/27/2023 Staff Ordering Physician: Mark Schilling MD Wood Casket Assembler: Kaylie Guevara RDCS Attending Provider: You Diamond MD Referring Physician: Shakir SAVAGE; Exam Type: CA echo doppler color flow Study Info Indications - assess lv, rv Complete two-dimensional, color flow and Doppler transthoracic echocardiogram is performed. Summary 1. Complete two-dimensional, color flow and Doppler transthoracic echocardiogram is performed. 2. Left ventricular chamber dimension is normal. 3. Left ventricular systolic function is hyperdynamic, estimated at >70%. 4. There is moderate concentric increased left ventricular wall thickness. 5. The left ventricular diastolic function is grade I diastolic dysfunction. 6. E/e' 21 is elevated. 7. The mitral valve has moderately calcified annulus. 8. There is mild mitral valve regurgitation. 9. There is mild tricuspid valve regurgitation. 10. No pulmonary hypertension, estimated pulmonary arterial systolic pressure is 14 mmHg. Left Ventricle E/e' 21 is elevated. Left ventricular chamber dimension is normal. Left ventricular systolic function is hyperdynamic, estimated at >70%. There is moderate concentric increased left ventricular wall thickness. The left ventricular diastolic function is grade I diastolic dysfunction. Right Ventricle Right ventricular systolic function is normal and with normal TAPSE 2.4 cm. Right ventricular chamber dimension is normal. Left Atria Left atrial chamber dimension is normal. Right Atria Right atrial chamber dimension is normal. Aortic Valve The aortic valve is probable trileaflet. There is no aortic valve stenosis. There is no aortic valve regurgitation. Pulmonic Valve There is no pulmonic regurgitation. Mitral Valve The mitral valve has moderately calcified annulus. There is no mitral valve stenosis. There is mild mitral valve regurgitation. Tricuspid Valve There is mild tricuspid valve regurgitation. No pulmonary hypertension, estimated pulmonary arterial systolic pressure is 14 mmHg. Pericardium/Pleural There is no pericardial effusion. Inferior Vena Cava Normal inferior vena cava with >50% collapse upon inspiration consistent with normal right atrial pressure, 5 mmHg. Aorta The aortic root size at the sinus of Valsalva is normal. Left Ventricular Outflow Tract Name Value Normal LVOT 2D LVOT Diameter 2.0 cm LVOT Doppler LVOT Peak Gradient 8 mmHg LVOT Mean Gradient 5 mmHg LVOT VTI 35 cm LVOT VTI/AV VTI Ratio 0.9 LVOT Stroke Volume 110 ml LVOT CO 8.2 l/min LVOT CI 4.3 l/min/m2 Pulmonic Valve Name Value Normal
[2023-01-27 10:57] LABS: Immunoglobulin A 797 mg/dL (70-400); Immunoglobulin G 376 mg/dL (700-1600); Immunoglobulin M 49 mg/dL (40-230)
--- NOTE | 2023-01-27 11:25 | PHAR ---
The patient's home med of *CHEMOTHERAPY* EXEMESTANE 25MG has been verified.
--- NOTE | 2023-01-27 11:25 | PM.CNPUL ---
Assessment and Plan Assessment and plan (1) Asthma exacerbation: Code(s): J45.901 - Unspecified asthma with (acute) exacerbation Status: Acute Assessment and Plan: Patient carries a history of asthma maintained on Symbicort 160-4.5 at 2 puffs q.12 hours, albuterol nebulizers Q 6 p.r.n., albuterol inhalers 2 puffs Q 4 p.r.n., as a last in 2 sprays each nostril b.i.d. and fluticasone 50 mcg 2 sprays intranasal b.i.d. for sinus disease. Currently the patient is admitted 01/26/23 with worsening shortness of breath, congestion and wheezing over the last 7 days and had hypoxemia in the emergency room with increased work of breathing and was placed on BiPAP. COVID, influenza and RSV RT PCR studies negative. 01/27/23: Patient had increased work of breathing under full face mask BiPAP and at home she uses nasal pillows with CPAP and room air. She was changed to a nasal mask with BiPAP pressures 10/5 on room air and this was much more comfortable for her. When I saw her she was on BiPAP, mild respiratory distress, she was on room air with saturations 97%. She is awake alert and communicative. She said that she felt much better than she did yesterday and stated she was 50% back to normal. She has diffuse expiratory wheezing on exam. I have checked a D-dimer in this is positive. Plan: Patient with an asthma exacerbation but also with hypoxia. Her D-dimer is positive and I will order CT angiogram of the chest as well as upper and lower extremity Dopplers. Echocardiogram will also be ordered to assess LV function, RV function, pulmonary pressures as well as her mitral valve regurgitation. I will treat Solu-Medrol 60 mg IV q.6 hours, albuterol and ipratropium nebulizers q.4 hours. She was complaining of difficulty expectorating and I will place her on guaifenesin 600 mg p.o. q.12 hours as well as the Cornet flutter valve. She was empirically treated with ceftriaxone and doxycycline for possible pneumonia. Today is day 2 and will continue today. I will send a procalcitonin. Regarding her frequent exacerbations and/or infectious complaints I will send an HIV panel, serum immunoglobulins and IgG subclass. Aspergillus titers are pending. Will follow with you. (2) Acute respiratory failure with hypoxia: Code(s): J96.01 - Acute respiratory failure with hypoxia Status: Acute Assessment and Plan: Patient with a history of obstructive sleep apnea on CPAP and room air at home. She was hypoxemic in the emergency department. 01/27/23: Currently she is on BiPAP 10/5 and room air with saturations 97%. She is on the BiPAP with a nasal mask and pressures 10/5 for work of breathing at this time. These settings feel comfortable for her. I will attempt to obtain a download from respiratory care. History of Present Illness History of Present Illness Consult date: 01/27/23 Chief complaint: Asthma Exacerbation/Respiratory Failure Narrative: 01/27/2023: This is a new pulmonary consult for shortness of breath and hypoxemic respiratory failure. Patient is followed in the Pulmonary Clinic in last seen on 01/05/2023: From that note: ESTABLISHED: ? Tatianna Bailey is an 87-yo female last here? 11/12/22, Lilliam saw her, she has EVELYN on CPAP and asthma. her son has a recent cancer diagnosis.? She is on iron supplement Thursday for low ferritin, sees Dr. Enciso for old history of breast cancer. ?Dr Argueta performed a Left? ethmoidectomy but the patient can not really say that she feels much better.? It did clean the area out and she had relief for a while.? She sees Dr. Davey who manages her diuretics, she has significant lower extremity swelling.? ? Since the last visit she had an overnight oximetry on 12/01/2022, out of 10 hours and 3 minutes the lowest saturation was 90%, average pulse 59.? Oxygen desaturation index 1.09, this is on CPAP 13 and room air. Asthma:? Her asthma control test score, HCT is 14, thi
[2023-01-27 11:30] LABS: HIV 1/2 Ab P24 Ag Result Negative (Negative)
[2023-01-27 12:25] LABS: Procalcitonin 0.1 ng/mL
--- NOTE | 2023-01-27 19:03 | PM.IMPN ---
Progress Note: A&P Assessment and Plan (1) Acute respiratory failure with hypoxia: Code(s): J96.01 - Acute respiratory failure with hypoxia Status: Acute (2) Asthma exacerbation: Code(s): J45.901 - Unspecified asthma with (acute) exacerbation Status: Acute (3) Bilateral lower extremity edema: Code(s): R60.0 - Localized edema Status: Acute (4) Diastolic dysfunction: Code(s): I51.89 - Other ill-defined heart diseases Status: Acute (5) Obstructive Sleep Apnea-Hypopnea Syndrome: Code(s): G47.33 - Obstructive sleep apnea (adult) (pediatric) Status: Acute (6) Benign essential hypertension: Onset Date: Unknown Code(s): I10 - Essential (primary) hypertension Status: Chronic Plan Continue with current management Continue with IV ceftriaxone and oral doxycycline Continue with CPAP, setting Ca adjusted as per Pulmonary Oxygen via nasal cannula to keep O2 sats around 94% DuoNeb nebulizers as needed Continue with IV steroid, taper as per clinical response 2D echo with color Doppler ordered to evaluate cardiac structure and function Continue with oral Bumex Strict input and output monitoring ? Patient seen and examined at bedside during my morning rounds ? Collaborated with patient's nurse at the bedside in detail and addressed all concerns ? Labs, electrolytes, radiology, investigations and test results reviewed ? Consult/Nursing/Ancilliary notes on the chart reviewed and appreciated ? Spoke with patient/family at the bedside and answered all the questions that they had Repeat labs in a.m. Electrolyte replacement as per protocol. Patient will be monitored very closely on the floor. Further recommendations as per the hospital course. Time Spent With Patient Time with patient: 25 - 35 minutes Subjective Date/time seen: 01/27/23 19:03 Interval history: Patient seen and evaluated bedside. Using CPAP. Patient seen and evaluated by paper inspector for adjusted CPAP settings Review of Systems Review of Systems: Twelve systems were reviewed and are negative except for as per HPI. Exam Narrative: General: Moderately ill-appearing female sitting up in bed on BiPAP. Weight: 77.5 kg. BMI: 33.4. HEENT: Normocephalic, atraumatic. PERRL, EOMI. Sclera anicteric. Oral mucosa appears moist to the BiPAP mask. Neck: Supple. No JVD. Respiratory: Patient has fair respiratory effort on CPAP. Lung sounds are significantly diminished and tight throughout all lung chirinos with end-expiratory wheezing and prolonged expiratory phase. Cardiovascular: Tachycardic with normal S1-S2. Gastrointestinal: Abdomen is soft, nontender, and nondistended with positive bowel sounds. Skin: Warm and dry. No rash or lesions on limited exam. Extremities: No cyanosis or clubbing. Two to 3+ pitting edema of the lower legs, softening above the knees. No palpable knots or cords. Negative Romi sign bilaterally. Radial and pedal pulses intact. Neurological: Alert and oriented. Cranial nerves 2-12 are grossly intact. No gross focal deficits to casual conversation. Psychiatric: Pleasant and cooperative with normal mood and affect. Judgment and insight intact. Objective Data Vital Signs Vital Signs: Vital Signs - 24 hr 01/26/23 19:06 01/26/23 19:23 01/26/23 20:25 Temperature Pulse Rate 107 H 107 H 100 Respiratory Rate 15 26 H 19 Blood Pressure 131/70 131/70 Pulse Oximetry 100 100 Oxygen Delivery Fraction of Inspired Oxygen 01/26/23 20:37 01/26/23 20:58 01/26/23 21:43 Temperature Pulse Rate 100 102 H 102 H Respiratory Rate 19 Blood Pressure 150/67 H 147/70 H Pulse Oximetry 98 98 Oxygen Delivery Fraction of Inspired Oxygen 01/26/23 22:03 01/26/23 21:45 01/27/23 01:49 Temperature 36.9 C Pulse Rate 97 99 89 Respiratory Rate 20 25 H 20 Blood Pressure 147/58 H Pulse Oximetry 100 98 Oxygen Delivery BiPAP Fraction of In
[2023-01-27] MEDS: guaiFENesin 12 HR 600 MG TABCR PO (20:10)
[2023-01-27] MEDS: BENZOCAINE/MENTHOL (*BKC) 18 EA LOZENGE 1 LOZENGE PO (21:49)
[2023-01-28] VITALS (34 sets, daily range): BP systolic 139–177; BP diastolic 63–97; PULSE 67–99; RESP 18–26; TEMP 36.1–36.6; O2SAT 92–99
[2023-01-28] MEDS: HYDROcodone/acetaminophen (*CRX) 5-325 MG TABLET 1 TAB PO ×3 (02:25→20:10)
[2023-01-28] MEDS: ALBUTEROL SULFATE NEB 2.5 MG/3 ML INH INHALATION ×5 (04:48→21:04)
[2023-01-28] MEDS: IPRATROPIUM BR 0.02% INH SOLN 0.5 MG/2.5 ML VIAL INHALATION ×5 (04:50→21:03)
[2023-01-28] MEDS: methylPREDNISolone SOD SUCC 125 MG VIAL 60 MG IV PUSH (05:27)
[2023-01-28 05:30] LABS: Basophils Percent Auto 0.1 % (0.2-1.2); Hematocrit 34.7 % (37.0-47.0); Immature Granulocyte Absolute 0.09 K/mm3 (0.00-0.031); Immature Granulocyte Percent A 0.7 % (0-0.5); Lymphocytes Absolute Auto 0.53 K/mm3 (0.9-3.2); Lymphocytes Percent Auto 4.2 % (18.3-44.2); Mean Corpuscular HGB Conc 31.7 g/dl (32-36); Mean Corpuscular Hemoglobin 27.6 pg (26-34); Mean Corpuscular Volume 87.2 fl (80-100); Mean Platelet Volume 10.5 fl (7.4-10.4); Monocytes Absolute Auto 0.3 K/mm3 (0.1-0.6); Monocytes Percent Auto 2.6 % (2.6-8.5); Neutrophils Absolute Auto 11.6 K/mm3 (1.3-6.7); Neutrophils Percent Auto 92.4 % (45.5-73.1); Platelet Count Result 217 k/mm3 (150-375); Red Blood Count 3.98 M/mm3 (4.2-5.4); Red Cell Distribution Width 15.9 % (11.5-14.5); White Blood Count 12.6 K/mm3 (4.5-10.0)
[2023-01-28 05:39] LABS: Anion Gap 6 mmol/L (8-16); Blood Urea Nitrogen 13 mg/dL (7-17); Calcium 9.1 mg/dL (8.4-10.2); Carbon Dioxide 30 mmol/L (22-30); Chloride 96 mmol/L (98-107); Estimated CRCL calculation 36 ml/min; Estimated Glomerular Filt Rate 59; Glucose 160 mg/dL (65-110); Magnesium 2.1 mg/dL (1.6-2.3); Phosphorus 3.7 mg/dL (2.5-4.5); Potassium 3.9 mmol/L (3.4-5.0); Sodium 132 mmol/L (137-145)
[2023-01-28] MEDS: BUMETANIDE 1 MG TABLET 2 MG PO (09:00)
[2023-01-28] MEDS: METOPROLOL SUCCINATE EXT REL 50 MG TABCR PO (09:00)
[2023-01-28] MEDS: DOXYCYCLINE HYCLATE 100 MG TABLET PO ×2 (09:00→20:14)
[2023-01-28] MEDS: ENOXAPARIN 40 MG/0.4 ML SYRINGE SUB-Q (09:00)
[2023-01-28] MEDS: guaiFENesin/DEXTROMETHORPHAN 10 ML UDC PO (09:00)
[2023-01-28] MEDS: dilTIAZem HCL CD 120 MG CAP.24HR PO (09:00)
[2023-01-28] MEDS: guaiFENesin 12 HR 600 MG TABCR PO ×2 (09:00→20:10)
[2023-01-28] MEDS: FLUTICASONE PROPIONATE 0.05% NA SPR 16 GM BTL (*BKC) 1 SPRAY NASAL ×2 (09:00→17:38)
[2023-01-28] MEDS: SERTRALINE HCL 50 MG TABLET 100 MG PO (09:00)
--- NOTE | 2023-01-28 09:10 | PM.PNPUL ---
Progress Note: A&P Assessment and Plan (1) Asthma exacerbation: Code(s): J45.901 - Unspecified asthma with (acute) exacerbation Status: Acute Assessment and Plan: Patient carries a history of asthma maintained on Symbicort 160-4.5 at 2 puffs q.12 hours, albuterol nebulizers Q 6 p.r.n., albuterol inhalers 2 puffs Q 4 p.r.n., as a last in 2 sprays each nostril b.i.d. and fluticasone 50 mcg 2 sprays intranasal b.i.d. for sinus disease. Currently the patient is admitted 01/26/23 with worsening shortness of breath, congestion and wheezing over the last 7 days and had hypoxemia in the emergency room with increased work of breathing and was placed on BiPAP. COVID, influenza and RSV RT PCR studies negative. 01/27/23: Patient had increased work of breathing under full face mask BiPAP and at home she uses nasal pillows with CPAP and room air. She was changed to a nasal mask with BiPAP pressures 10/5 on room air and this was much more comfortable for her. When I saw her she was on BiPAP, mild respiratory distress, she was on room air with saturations 97%. She is awake alert and communicative. She said that she felt much better than she did yesterday and stated she was 50% back to normal. She has diffuse expiratory wheezing on exam. I have checked a D-dimer in this is positive. Plan: Patient with an asthma exacerbation but also with hypoxia. Her D-dimer is positive and I will order CT angiogram of the chest as well as upper and lower extremity Dopplers. Echocardiogram will also be ordered to assess LV function, RV function, pulmonary pressures as well as her mitral valve regurgitation. I will treat Solu-Medrol 60 mg IV q.6 hours, albuterol and ipratropium nebulizers q.4 hours. She was complaining of difficulty expectorating and I will place her on guaifenesin 600 mg p.o. q.12 hours as well as the Cornet flutter valve. She was empirically treated with ceftriaxone and doxycycline for possible pneumonia. Today is day 2 and will continue today. I will send a procalcitonin. Regarding her frequent exacerbations and/or infectious complaints I will send an HIV panel, serum immunoglobulins and IgG subclass. Aspergillus titers are pending. 01/28: Patient was off the BiPAP briefly last night. She was attempted on her home CPAP 14 but this did not provider enough air and she was placed back on the hospital BiPAP 10/5 and room air. Currently she is on a nasal mask with the hospital BiPAP breathing 15 times a minute pressures 10/5, tidal volumes 430-450 mL on room air with saturations 96%. Patient states that she is very tired as she has not slept. When she is sitting she is breathing fine but she has dyspnea on exertion. She has a dry cough. White blood cell count 12.6, creatinine 0.9. She is afebrile. She has as expiratory wheezes but they are improved today. Procalcitonin 0.1. Plan: I will decrease the Solu-Medrol to 20 mg IV q.6. I will continue albuterol and ipratropium nebulizers at q.4 hours. She has a white blood cell count today 12.6, no blood cultures were drawn. She is on day 2 ceftriaxone and doxycycline and I will continue today. Will follow with you. (2) Acute respiratory failure with hypoxia: Code(s): J96.01 - Acute respiratory failure with hypoxia Status: Acute Assessment and Plan: Patient with a history of obstructive sleep apnea on CPAP and room air at home. She was hypoxemic in the emergency department. Download from 12/27/2022 through 01/25/2023.? Through [employer].? Patient is on CPAP 14.? Usage days greater than or equal to 4 hours is 30 days.? Average usage on days used is 9 hours and 27 minutes.? AHI is 1.5, apnea index 1.4, hypopnea index 0.1, median leak 10.9, 95th percentile leak 29.8, maximum leak 95.7.? Central apnea index 0.1.? Median tidal volume 280 mL, median respiratory rate 19, median minute ventilation 5.6.? I interpret this download as excellent compliance, adequate pressures
[2023-01-28] MEDS: methylPREDNISolone SOD SUCC 40 MG VIAL 20 MG IV PUSH ×2 (11:30→17:39)
--- NOTE | 2023-01-28 17:24 | PM.IMPN ---
Progress Note: A&P Assessment and Plan (1) Acute respiratory failure with hypoxia: Code(s): J96.01 - Acute respiratory failure with hypoxia Status: Acute (2) Asthma exacerbation: Code(s): J45.901 - Unspecified asthma with (acute) exacerbation Status: Acute (3) Bilateral lower extremity edema: Code(s): R60.0 - Localized edema Status: Acute (4) Diastolic dysfunction: Code(s): I51.89 - Other ill-defined heart diseases Status: Acute (5) Obstructive Sleep Apnea-Hypopnea Syndrome: Code(s): G47.33 - Obstructive sleep apnea (adult) (pediatric) Status: Acute (6) Benign essential hypertension: Onset Date: Unknown Code(s): I10 - Essential (primary) hypertension Status: Chronic Plan Continue with current management Continue with IV ceftriaxone and oral doxycycline Continue with hospital BiPAP, to be switched to her home CPAP with settings monitored as per Pulmonary DuoNeb nebulizers as needed Continue with IV steroid, taper as per clinical response Patient had mild jump in WBC count from 7.4-12.6 due to IV steroids 2D echo with color Doppler reviewed which showed hyperdynamic preserved LV function estimated at greater than 70% Patient is on metoprolol succinate 50 mg p.o. daily which will Continue with oral Bumex Strict input and output monitoring PT/OT evaluation ordered DC planning in the next 24-48 hours if she continues to improve clinically and weaned down from hospital BiPAP to home CPAP settings ? Patient seen and examined at bedside during my morning rounds ? Collaborated with patient's nurse at the bedside in detail and addressed all concerns ? Labs, electrolytes, radiology, investigations and test results reviewed ? Consult/Nursing/Ancilliary notes on the chart reviewed and appreciated ? Spoke with patient/family at the bedside and answered all the questions that they had Repeat labs in a.m. Electrolyte replacement as per protocol. Patient will be monitored very closely on the floor. Further recommendations as per the hospital course. I am signing off. Patient's medical care will be taken over by my covering hospitalist attending in am. Subjective Date/time seen: 01/28/23 17:24 Interval history: Patient seen and evaluated at bedside. She is on hospital BiPAP. Shortness of breath slowly improving. Still feels weak and tired. Review of Systems Review of Systems: 14 systems were reviewed with pertinent positives and negatives per HPI. Except as documented in the HPI/progress notes, all other systems were reviewed and are negative. Exam Narrative: General: Moderately ill-appearing female sitting up in bed on BiPAP. Weight: 77.5 kg. BMI: 33.4. HEENT: Normocephalic, atraumatic. PERRL, EOMI. Sclera anicteric. Oral mucosa appears moist to the BiPAP mask. Neck: Supple. No JVD. Respiratory: Patient has fair respiratory effort on CPAP. Lung sounds are significantly diminished and tight throughout all lung chirinos with end-expiratory wheezing and prolonged expiratory phase. Cardiovascular: Tachycardic with normal S1-S2. Gastrointestinal: Abdomen is soft, nontender, and nondistended with positive bowel sounds. Skin: Warm and dry. No rash or lesions on limited exam. Extremities: No cyanosis or clubbing. Two to 3+ pitting edema of the lower legs, softening above the knees. No palpable knots or cords. Negative Romi sign bilaterally. Radial and pedal pulses intact. Neurological: Alert and oriented. Cranial nerves 2-12 are grossly intact. No gross focal deficits to casual conversation. Psychiatric: Pleasant and cooperative with normal mood and affect. Judgment and insight intact. Objective Data Vital Signs Vital Signs: Vital Signs - 24 hr 01/27/23 18:00 01/27/23 19:24 01/27/23 19:52 Temperature 36.6 C Pulse Rate 95 74 80 Respiratory Rate 18 20 Blood Pressure 147/61 H Pulse Oximetry 95 Oxygen Delivery
[2023-01-28] MEDS: ALPRAZolam (*CRX) 0.125 MG TABLET PO (20:10)
[2023-01-28] MEDS: MELATONIN 5 MG TABLET PO (20:10)
[2023-01-28] MEDS: BENZOCAINE/MENTHOL (*BKC) 18 EA LOZENGE 1 LOZENGE PO (20:20)
[2023-01-29] VITALS (32 sets, daily range): BP systolic 119–211; BP diastolic 59–121; PULSE 63–102; RESP 14–28; TEMP 35.6–36.8; O2SAT 91–100
[2023-01-29] MEDS: methylPREDNISolone SOD SUCC 40 MG VIAL 20 MG IV PUSH ×4 (00:02→18:23)
[2023-01-29] MEDS: ALBUTEROL SULFATE NEB 2.5 MG/3 ML INH INHALATION ×6 (01:52→21:19)
[2023-01-29] MEDS: IPRATROPIUM BR 0.02% INH SOLN 0.5 MG/2.5 ML VIAL INHALATION ×6 (01:53→21:19)
[2023-01-29] MEDS: guaiFENesin/DEXTROMETHORPHAN 10 ML UDC PO ×4 (02:24→22:01)
[2023-01-29] MEDS: HYDROcodone/acetaminophen (*CRX) 5-325 MG TABLET 1 TAB PO (02:25)
--- NOTE | 2023-01-29 03:35 | PC.NURSE ---
Patient did well tonight until she had been laying down asleep for awhile. Pulse ox started dropping to upper 80's. This nurse went in to check on patient. patient sounded stuffy, started coughing. Patient sat up and started having a panic attack, unable to breathe through her nose. Pulse ox dropping into lower 80's. This nurse and respiratory therapist administered nebulizer treatment and stayed with patient until she calmed down. Patient states she recently had a nasal surgery and states she wonders if this could be part of the problem. This nurse spoke with Dr. Corrales who ordered saline nasal spray and a CT of facial bone without contrast. Patient's ins/exp wheezing improved some with neb treatment.
[2023-01-29 05:35] LABS: Basophils Percent Auto 0.1 % (0.2-1.2); Hematocrit 36.3 % (37.0-47.0); Hemoglobin 11.4 g/dL (12.0-15.0); Immature Granulocyte Absolute 0.06 K/mm3 (0.00-0.031); Immature Granulocyte Percent A 0.5 % (0-0.5); Lymphocytes Absolute Auto 0.36 K/mm3 (0.9-3.2); Lymphocytes Percent Auto 3.1 % (18.3-44.2); Mean Corpuscular HGB Conc 31.4 g/dl (32-36); Mean Corpuscular Hemoglobin 27.3 pg (26-34); Mean Corpuscular Volume 86.8 fl (80-100); Mean Platelet Volume 10.8 fl (7.4-10.4); Monocytes Absolute Auto 0.4 K/mm3 (0.1-0.6); Monocytes Percent Auto 3.4 % (2.6-8.5); Neutrophils Absolute Auto 10.6 K/mm3 (1.3-6.7); Neutrophils Percent Auto 92.9 % (45.5-73.1); Platelet Count Result 249 k/mm3 (150-375); Red Blood Count 4.18 M/mm3 (4.2-5.4); Red Cell Distribution Width 15.9 % (11.5-14.5); White Blood Count 11.5 K/mm3 (4.5-10.0)
[2023-01-29 05:48] LABS: Anion Gap 8 mmol/L (8-16); Blood Urea Nitrogen 21 mg/dL (7-17); Calcium 8.6 mg/dL (8.4-10.2); Carbon Dioxide 32 mmol/L (22-30); Chloride 90 mmol/L (98-107); Estimated CRCL calculation 30 ml/min; Estimated Glomerular Filt Rate 47; Glucose 141 mg/dL (65-110); Potassium 3.3 mmol/L (3.4-5.0); Sodium 130 mmol/L (137-145)
[2023-01-29] MEDS: ALPRAZolam (*CRX) 0.125 MG TABLET PO ×3 (06:11→22:02)
--- NOTE | 2023-01-29 06:40 | PC.NURSE ---
Patient had another anxiety attack. Called this nurse to room, hyperventilating and coughing. Alprazolam administered. Nasal saline administerd. Guidance to breathe more effectively and comfort/reassurance given. Pulse ox dropped to mid 80's. 1L of oxygen turned on through mask. Patient resting at this time. with 1L oxygen through cpap mask. Patient has used flutter valve frequently and states nasal saline is helping.
[2023-01-29] MEDS: BUMETANIDE 1 MG TABLET 2 MG PO (09:12)
[2023-01-29] MEDS: dilTIAZem HCL CD 120 MG CAP.24HR PO (09:12)
[2023-01-29] MEDS: DOXYCYCLINE HYCLATE 100 MG TABLET PO ×2 (09:12→20:56)
[2023-01-29] MEDS: METOPROLOL SUCCINATE EXT REL 50 MG TABCR PO (09:12)
[2023-01-29] MEDS: ENOXAPARIN 40 MG/0.4 ML SYRINGE SUB-Q (09:13)
[2023-01-29] MEDS: FERROUS SULFATE 325 MG TABLET DR BY MOUTH (09:13)
[2023-01-29] MEDS: SERTRALINE HCL 50 MG TABLET 100 MG PO (09:13)
[2023-01-29] MEDS: guaiFENesin 12 HR 600 MG TABCR PO ×2 (09:13→20:56)
[2023-01-29] MEDS: FLUTICASONE PROPIONATE 0.05% NA SPR 16 GM BTL (*BKC) 1 SPRAY NASAL (09:24)
--- NOTE | 2023-01-29 09:43 | PM.PNPUL ---
Progress Note: A&P Assessment and Plan (1) Asthma exacerbation: Code(s): J45.901 - Unspecified asthma with (acute) exacerbation Status: Acute Assessment and Plan: Patient carries a history of asthma maintained on Symbicort 160-4.5 at 2 puffs q.12 hours, albuterol nebulizers Q 6 p.r.n., albuterol inhalers 2 puffs Q 4 p.r.n., as a last in 2 sprays each nostril b.i.d. and fluticasone 50 mcg 2 sprays intranasal b.i.d. for sinus disease. Currently the patient is admitted 01/26/23 with worsening shortness of breath, congestion and wheezing over the last 7 days and had hypoxemia in the emergency room with increased work of breathing and was placed on BiPAP. COVID, influenza and RSV RT PCR studies negative. 01/27/23: Patient had increased work of breathing under full face mask BiPAP and at home she uses nasal pillows with CPAP and room air. She was changed to a nasal mask with BiPAP pressures 10/5 on room air and this was much more comfortable for her. When I saw her she was on BiPAP, mild respiratory distress, she was on room air with saturations 97%. She is awake alert and communicative. She said that she felt much better than she did yesterday and stated she was 50% back to normal. She has diffuse expiratory wheezing on exam. I have checked a D-dimer in this is positive. Plan: Patient with an asthma exacerbation but also with hypoxia. Her D-dimer is positive and I will order CT angiogram of the chest as well as upper and lower extremity Dopplers. Echocardiogram will also be ordered to assess LV function, RV function, pulmonary pressures as well as her mitral valve regurgitation. I will treat Solu-Medrol 60 mg IV q.6 hours, albuterol and ipratropium nebulizers q.4 hours. She was complaining of difficulty expectorating and I will place her on guaifenesin 600 mg p.o. q.12 hours as well as the Cornet flutter valve. She was empirically treated with ceftriaxone and doxycycline for possible pneumonia. Today is day 2 and will continue today. I will send a procalcitonin. Regarding her frequent exacerbations and/or infectious complaints I will send an HIV panel, serum immunoglobulins and IgG subclass. Aspergillus titers are pending. 01/28: Patient was off the BiPAP briefly last night. She was attempted on her home CPAP 14 but this did not provider enough air and she was placed back on the hospital BiPAP 10/5 and room air. Currently she is on a nasal mask with the hospital BiPAP breathing 15 times a minute pressures 10/5, tidal volumes 430-450 mL on room air with saturations 96%. Patient states that she is very tired as she has not slept. When she is sitting she is breathing fine but she has dyspnea on exertion. She has a dry cough. White blood cell count 12.6, creatinine 0.9. She is afebrile. She has as expiratory wheezes but they are improved today. Procalcitonin 0.1. Plan: I will decrease the Solu-Medrol to 20 mg IV q.6. I will continue albuterol and ipratropium nebulizers at q.4 hours. She has a white blood cell count today 12.6, no blood cultures were drawn. She is on day 2 ceftriaxone and doxycycline and I will continue today. 01/29: Patient was off the noninvasive ventilator yesterday during the day on room air with adequate saturation. Patient wore the BiPAP 10/5 last night. She had acute bronchospasm and anxiety in the middle of the night. The patient states that she feels about the same since she was admitted to the hospital. She improved but persistent expiratory wheezing. Her white blood cell count is 11.5, creatinine is 1.10. Plan: I will continue Solu-Medrol 20 mg IV q.6. I will continue albuterol and ipratropium nebulizers q.4 hours. Continue ceftriaxone and doxycycline today both day 3. I will repeat a COVID, RSV and influenza swab. Will follow with you. (2) Acute respiratory failure with hypoxia: Code(s): J96.01 - Acute respiratory failure with hypoxia Status: Acute Assessment and Pl
--- NOTE | 2023-01-29 10:40 | PM.IMPN ---
Progress Note: A&P Assessment and Plan (1) Acute respiratory failure with hypoxia: Code(s): J96.01 - Acute respiratory failure with hypoxia Status: Acute (2) Asthma exacerbation: Code(s): J45.901 - Unspecified asthma with (acute) exacerbation Status: Acute (3) Bilateral lower extremity edema: Code(s): R60.0 - Localized edema Status: Acute (4) Diastolic dysfunction: Code(s): I51.89 - Other ill-defined heart diseases Status: Acute (5) Obstructive Sleep Apnea-Hypopnea Syndrome: Code(s): G47.33 - Obstructive sleep apnea (adult) (pediatric) Status: Acute (6) Benign essential hypertension: Onset Date: Unknown Code(s): I10 - Essential (primary) hypertension Status: Chronic (7) Hyperglobulinemia: Code(s): R77.1 - Abnormality of globulin Status: Acute (8) Hypoglobulinemia: Code(s): 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 daily which will Continue with oral Bumex Strict input and output monitoring PT/OT evaluation ordered Low IgG and high IgA level On no etiologies Consult heme oncologist for evaluation treatment Subjective Date/time seen: 01/29/23 10:40 Interval history: I saw and examinedpatient. ?Patient was off the noninvasive ventilator yesterday during the day on room air with adequate saturation.? Currently she is on nasal mask BiPAP with a rate of 20 pressures 10/5 tidal volumes 350-400 room air with saturations 93%.? persistent expiratory wheezing.? Her white blood cell count is 11.5, creatinine is 1.10. Exam Narrative: General: Moderately ill-appearing female sitting up in bed on BiPAP. Weight: 77.5 kg. BMI: 33.4. HEENT: Normocephalic, atraumatic. PERRL, EOMI. Sclera anicteric. Oral mucosa appears moist to the BiPAP mask. Neck: Supple. No JVD. Respiratory: Patient has fair respiratory effort on CPAP. Lung sounds are significantly diminished bilaterally, wheezing bilaterally Cardiovascular: Tachycardic with normal S1-S2. Gastrointestinal: Abdomen is soft, nontender, and nondistended with positive bowel sounds. Skin: Warm and dry. No rash or lesions on limited exam. Extremities: No cyanosis or clubbing. Two to 3+ pitting edema of the lower legs, softening above the knees. No palpable knots or cords. Negative Romi sign bilaterally. Radial and pedal pulses intact. Neurological: Alert and oriented. Cranial nerves 2-12 are grossly intact. No gross focal deficits to casual conversation. Psychiatric: Pleasant and cooperative with normal mood and affect. Objective Data Vital Signs Vital Signs: Vital Signs - 24 hr 01/28/23 11:21 01/28/23 11:37 01/28/23 11:38 Temperature Pulse Rate 82 80 Respiratory Rate 20 20 Blood Pressure Pulse Oximetry 98 Oxygen Delivery Room Air Fraction of Inspired Oxygen 01/28/23 11:53 01/28/23 12:00 01/28/23 14:00 Temperature 97.5 F L Pulse Rate 89 92 81 Respiratory Rate 21 H Blood Pressure 141/79 H Pulse Oximetry 97 Oxygen Delivery Fraction of Inspired Oxygen 01/28/23 15:28 01/28/23 16:40 01/28/23 16:00 Temperature 97.8 F Pulse Rate 75 83 Respiratory Rate 19 20 Blood Pressure 139/69 Pulse Oximetry 96 99 Oxygen Delivery Room Air Fraction of Inspired Oxygen 01/28/23 17:04 01/28/23 16:00 01/28/23 18:00 Temperature Pulse Rate 87 83 83
[2023-01-29 11:32] LABS: Influenza A QL RT-PCR Negative (Negative); Influenza B QL RT-PCR Negative (Negative); RSV RNA, RT-PCR Negative (Negative); SARS-CoV-2 RNA PCR Negative (Negative)
--- NOTE | 2023-01-29 15:35 | PC.NURSE ---
Called to patients room, pt unable to catch her breath. Went to room with RT. pt gasping for air, saying help me I'm not getting any air. Attempted to health care coach patient through guided imagery to slow down breathing and help her catch her breath. She was unable, RT gave the pt a breathing treatment which seemed to help some. I gave the pt an anxiety medication prescribed by the MD and attempted cough medicine but was unsuccessful as the pt started to cough and go into what appeared to be another asthma attack. The pt's HR went into the 120's and was SOB, I put her biPap on her and called the RT. I asked the RT to call Dr. Schilling, she received further orders for treatment.
[2023-01-29] MEDS: LEVALBUTEROL NEB 1.25 MG/3 ML 5 MG INHALATION (15:44)
[2023-01-29] MEDS: MELATONIN 5 MG TABLET PO (20:56)
[2023-01-29] MEDS: POTASSIUM CHLORIDE 20 MEQ ER TABLET PO (21:00)
[2023-01-30] VITALS (34 sets, daily range): BP systolic 148–188; BP diastolic 59–85; PULSE 63–103; RESP 13–32; TEMP 35.8–36.5; O2SAT 91–100
[2023-01-30] MEDS: methylPREDNISolone SOD SUCC 40 MG VIAL 20 MG IV PUSH ×3 (00:36→08:52)
[2023-01-30] MEDS: IPRATROPIUM BR 0.02% INH SOLN 0.5 MG/2.5 ML VIAL INHALATION ×6 (01:05→20:47)
[2023-01-30] MEDS: ALBUTEROL SULFATE NEB 2.5 MG/3 ML INH INHALATION ×6 (01:05→20:47)
[2023-01-30 05:26] LABS: Basophils Percent Auto 0.1 % (0.2-1.2); Eosinophils Percent Auto 0.1 % (0-4.4); Hemoglobin 11.8 g/dL (12.0-15.0); Immature Granulocyte Absolute 0.08 K/mm3 (0.00-0.031); Immature Granulocyte Percent A 0.9 % (0-0.5); Lymphocytes Absolute Auto 0.41 K/mm3 (0.9-3.2); Lymphocytes Percent Auto 4.4 % (18.3-44.2); Mean Corpuscular HGB Conc 31.9 g/dl (32-36); Mean Corpuscular Hemoglobin 27.1 pg (26-34); Mean Corpuscular Volume 85.1 fl (80-100); Monocytes Absolute Auto 0.4 K/mm3 (0.1-0.6); Monocytes Percent Auto 4.5 % (2.6-8.5); Neutrophils Absolute Auto 8.5 K/mm3 (1.3-6.7); Platelet Count Result 245 k/mm3 (150-375); Red Blood Count 4.35 M/mm3 (4.2-5.4); Red Cell Distribution Width 15.3 % (11.5-14.5); White Blood Count 9.4 K/mm3 (4.5-10.0)
[2023-01-30 05:47] LABS: Anion Gap 2 mmol/L (8-16); Blood Urea Nitrogen 22 mg/dL (7-17); Calcium 8.7 mg/dL (8.4-10.2); Carbon Dioxide 38 mmol/L (22-30); Chloride 89 mmol/L (98-107); Estimated CRCL calculation 36 ml/min; Estimated Glomerular Filt Rate 59; Glucose 130 mg/dL (65-110); Potassium 3.3 mmol/L (3.4-5.0); Sodium 129 mmol/L (137-145)
[2023-01-30] MEDS: ALPRAZolam (*CRX) 0.125 MG TABLET PO (06:05)
[2023-01-30] MEDS: HYDROcodone/acetaminophen (*CRX) 5-325 MG TABLET 1 TAB PO (07:18)
[2023-01-30] MEDS: METOPROLOL SUCCINATE EXT REL 50 MG TABCR PO (08:51)
[2023-01-30] MEDS: ALPRAZolam (*CRX) 0.5 MG TABLET PO ×3 (08:51→23:09)
[2023-01-30] MEDS: SERTRALINE HCL 50 MG TABLET 100 MG PO (08:51)
[2023-01-30] MEDS: DOXYCYCLINE HYCLATE 100 MG TABLET PO ×2 (08:52→19:52)
[2023-01-30] MEDS: dilTIAZem HCL CD 120 MG CAP.24HR PO (08:52)
[2023-01-30] MEDS: guaiFENesin 12 HR 600 MG TABCR PO ×2 (08:52→19:52)
[2023-01-30] MEDS: BUMETANIDE 1 MG TABLET 2 MG PO (08:52)
[2023-01-30] MEDS: ENOXAPARIN 40 MG/0.4 ML SYRINGE SUB-Q (08:52)
[2023-01-30] MEDS: FLUTICASONE PROPIONATE 0.05% NA SPR 16 GM BTL (*BKC) 1 SPRAY NASAL ×2 (08:52→16:47)
--- NOTE | 2023-01-30 09:16 | PDONCCN ---
HPI - Date of Consult Date/Time: 01/30/23 16:42 <Chadwick Enciso - 01/30/23 16:45> 01/30/23 09:16 <Thea Corral - 01/30/23 09:18> Requesting Physician: You Diamond MD <Chadwick Enciso - 01/30/23 16:45> You Diamond MD <Thea Corral - 01/30/23 09:18> Primary Care Provider: Mark العلي DO <Chadwick Enciso - 01/30/23 16:45> Mark العلي DO <Thea Corral - 01/30/23 09:18> - Consult Narrative Narrative: Tatianna Bailey is a 87 year old female <FernieChadwickmarco Schmitt - 01/30/23 16:45> Tatianna Bailey is a 87 year old female with a past medical history of asthma, sleep apnea, anemia, osteoarthritis and breast cancer. We have been seeing Tatianna in the office for invasive lobular carcinoma of the R breast. She has been on Exemestane since April 2020 and stable. She has been admitted for shortness of breath, cough, and wheezing that has been worsening since . Her last RVP was negative. Recent chest CTA showed clear lugs and chest xray from 01/30 shows no cardiopulmonary disease. She is having alot of anxiety and appears very ill upon exam. She states she hasn't slept in days. She denies any back pain or kidney issues. She has been taking her iron and cancer medication at home. Immunoglobulin levels were drawn due to chronic exacerbations and infectious and IgA found to be elevated at 797, IgM 49, and IgG 376 <Thea Corral - 01/30/23 14:32> Review of Systems - Cardiovascular Reports shortness of breath <Thea Corral - 01/30/23 14:28> - Respiratory Reports cough, Reports dyspnea <Thea Corral - 01/30/23 14:28> - Neurologic Reports system reviewed and no additional complaints, except as documented <Thea Corral - 01/30/23 09:18> - Psychiatric Reports anxiety <Thea Corral - 01/30/23 14:28> [facility] Medical History: Medical History (Last Updated 01/26/23 @ 23:43 by Amanda Rodriguez PA-C) Adenomatous colon polyp Degenerative arthritis of knee, bilateral Diastolic dysfunction Diastolic dysfunction Estrogen receptor positive status (ER+) Iron deficiency anemia due to chronic blood loss 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, estrogen receptor positive Osteoarthritis of right knee Onset Date: Unknown Port-A-Cath in place Onset Date: ~2017 <Chadwick Enciso - 01/30/23 16:45> Medical History (Last Updated 01/26/23 @ 23:43 by Amanda Rodriguez PA-C) Adenomatous colon polyp Degenerative arthritis of knee, bilateral Diastolic dysfunction Diastolic dysfunction Estrogen receptor positive status (ER+) Iron deficiency anemia due to chronic blood loss 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, estrogen receptor positive Osteoarthritis of right knee Onset Date: Unknown Port-A-Cath in place Onset Date: ~2017 <Thea Corral - 01/30/23 09:18> Surgical History: Surgical History (Last Reviewed 01/26/23 @ 23:39 by Amanda Rodriguez PA-C) History of hernia repair History of right knee surgery History of right mastectomy <Chadwick Enciso - 01/30/23 16:45> Surgical History (Last Reviewed 01/26/23 @ 23:39 by Amanda Rodriguez PA-C) History of hernia repair History of right knee surgery History of right mastectomy <Thea Corral - 01/30/23 09:18> Family History: Family History (Last Reviewed 01/26/23 @ 23:39 by Amanda Rodriguez PA-C) Father Family history of diabetes mellitus in first degree relative Family history of coronary artery disease Patient's father is in good health Mother Family history of lung cancer Sibling Family history of lung cancer Family history of malignant neoplasm of brain, Onset Age: 60 Other Diabetes mellitus Family history of cardiovascular disease Family history of kidney disease <Chadwick Enciso - 01/30/23 16:45> Family History (Last Reviewed 01/26/23 @ 23:3
[2023-01-30 09:40] LABS: Iron 114 ug/dL (37-170)
[2023-01-30 09:50] LABS: Percent Iron Saturation 37 % (20-50)
--- NOTE | 2023-01-30 10:25 | PM.PNPUL ---
Progress Note: A&P Assessment and Plan (1) Asthma exacerbation: Code(s): J45.901 - Unspecified asthma with (acute) exacerbation Status: Acute Assessment and Plan: Patient carries a history of asthma maintained on Symbicort 160-4.5 at 2 puffs q.12 hours, albuterol nebulizers Q 6 p.r.n., albuterol inhalers 2 puffs Q 4 p.r.n., as a last in 2 sprays each nostril b.i.d. and fluticasone 50 mcg 2 sprays intranasal b.i.d. for sinus disease. Currently the patient is admitted 01/26/23 with worsening shortness of breath, congestion and wheezing over the last 7 days and had hypoxemia in the emergency room with increased work of breathing and was placed on BiPAP. COVID, influenza and RSV RT PCR studies negative. 01/27/23: Patient had increased work of breathing under full face mask BiPAP and at home she uses nasal pillows with CPAP and room air. She was changed to a nasal mask with BiPAP pressures 10/5 on room air and this was much more comfortable for her. When I saw her she was on BiPAP, mild respiratory distress, she was on room air with saturations 97%. She is awake alert and communicative. She said that she felt much better than she did yesterday and stated she was 50% back to normal. She has diffuse expiratory wheezing on exam. I have checked a D-dimer in this is positive. Plan: Patient with an asthma exacerbation but also with hypoxia. Her D-dimer is positive and I will order CT angiogram of the chest as well as upper and lower extremity Dopplers. Echocardiogram will also be ordered to assess LV function, RV function, pulmonary pressures as well as her mitral valve regurgitation. I will treat Solu-Medrol 60 mg IV q.6 hours, albuterol and ipratropium nebulizers q.4 hours. She was complaining of difficulty expectorating and I will place her on guaifenesin 600 mg p.o. q.12 hours as well as the Cornet flutter valve. She was empirically treated with ceftriaxone and doxycycline for possible pneumonia. Today is day 2 and will continue today. I will send a procalcitonin. Regarding her frequent exacerbations and/or infectious complaints I will send an HIV panel, serum immunoglobulins and IgG subclass. Aspergillus titers are pending. 01/28: Patient was off the BiPAP briefly last night. She was attempted on her home CPAP 14 but this did not provider enough air and she was placed back on the hospital BiPAP 10/5 and room air. Currently she is on a nasal mask with the hospital BiPAP breathing 15 times a minute pressures 10/5, tidal volumes 430-450 mL on room air with saturations 96%. Patient states that she is very tired as she has not slept. When she is sitting she is breathing fine but she has dyspnea on exertion. She has a dry cough. White blood cell count 12.6, creatinine 0.9. She is afebrile. She has as expiratory wheezes but they are improved today. Procalcitonin 0.1. Plan: I will decrease the Solu-Medrol to 20 mg IV q.6. I will continue albuterol and ipratropium nebulizers at q.4 hours. She has a white blood cell count today 12.6, no blood cultures were drawn. She is on day 2 ceftriaxone and doxycycline and I will continue today. 01/29: Patient was off the noninvasive ventilator yesterday during the day on room air with adequate saturation. Patient wore the BiPAP 10/5 last night. She had acute bronchospasm and anxiety in the middle of the night. The patient states that she feels about the same since she was admitted to the hospital. She improved but persistent expiratory wheezing. Her white blood cell count is 11.5, creatinine is 1.10. Plan: I will continue Solu-Medrol 20 mg IV q.6. I will continue albuterol and ipratropium nebulizers q.4 hours. Continue ceftriaxone and doxycycline today both day 3. I will repeat a COVID, RSV and influenza swab. 01/30: I spoke with the bedside nurse and on the nurses initial assessment this morning the patient was calm in no respiratory distress. She was then called to the room an hour la
[2023-01-30 10:46] LABS: Folic Acid 6.6 ng/mL (2.76->20)
[2023-01-30 11:46] LABS: Immunoglobulin G, Serum 383 mg/dL (600-1540); Immunoglobulin G1 189 mg/dL (382-929); Immunoglobulin G2 124 mg/dL (241-700); Immunoglobulin G3 13 mg/dL (22-178); Immunoglobulin G4 44.5 mg/dL (4.0-86.0)
[2023-01-30] MEDS: methylPREDNISolone SOD SUCC 40 MG VIAL IV PUSH ×3 (11:50→23:23)
--- NOTE | 2023-01-30 14:09 | PM.IMPN ---
Progress Note: A&P Assessment and Plan (1) Acute respiratory failure with hypoxia: Code(s): J96.01 - Acute respiratory failure with hypoxia Status: Acute (2) Asthma exacerbation: Code(s): J45.901 - Unspecified asthma with (acute) exacerbation Status: Acute (3) Bilateral lower extremity edema: Code(s): R60.0 - Localized edema Status: Acute (4) Diastolic dysfunction: Code(s): I51.89 - Other ill-defined heart diseases Status: Acute (5) Obstructive Sleep Apnea-Hypopnea Syndrome: Code(s): G47.33 - Obstructive sleep apnea (adult) (pediatric) Status: Acute (6) Benign essential hypertension: Onset Date: Unknown Code(s): I10 - Essential (primary) hypertension Status: Chronic (7) Hyperglobulinemia: Code(s): R77.1 - Abnormality of globulin Status: Acute (8) Hypoglobulinemia: Code(s): R77.1 - Abnormality of globulin Status: Acute Plan Acute respiratory failure, asthma exacerbation Continue with current management Continue with IV ceftriaxone and oral doxycycline Continue with hospital BiPAP, to be switched to her home CPAP with settings monitored as per Pulmonary DuoNeb nebulizers as needed Continue with IV steroid, taper as per clinical response Patient had mild jump in WBC count from 7.4-12.6 due to IV steroids Worsening shortness of breath and wheezing Increase methylprednisolone to 40 mg q.6 hour IV per investor relations analyst recommendation 2D echo with color Doppler reviewed which showed hyperdynamic preserved LV function estimated at greater than 70% Patient is on metoprolol succinate 50 mg p.o. daily which will Continue with oral Bumex Strict input and output monitoring PT/OT evaluation ordered Low IgG and high IgA level On no etiologies Consult heme oncologist for evaluation treatment Uncontrolled hypertension And amlodipine 10 mg once and daily, losartan 50 mg once and daily Start hydralazine 10 mg q.6 hours p.r.n. with parameters Anxiety Patient has anxiety, worse because of medications, including bronchodilators methylprednisolone Start Xanax 0.5 mg t.i.d. p.r.n.po and ambien 5 mg qhs prn Subjective Date/time seen: 01/30/23 14:09 Interval history: I saw and examined the patient today. Patient has worsening short of breath in the morning, patient was anxious, has dry cough with scant phlegm. Patient denies chest pain, headache, abdomen pain, nausea vomiting diarrhea. Patient is on 2 L oxygen Exam Narrative: General: Moderately ill-appearing female sitting up in bed on BiPAP. Weight: 77.5 kg. BMI: 33.4. HEENT: Normocephalic, atraumatic. PERRL, EOMI. Sclera anicteric. Oral mucosa appears moist to the BiPAP mask. Neck: Supple. No JVD. Respiratory: Lung sounds are significantly diminished bilaterally, wheezing bilaterally Cardiovascular: Tachycardic with normal S1-S2. Gastrointestinal: Abdomen is soft, nontender, and nondistended with positive bowel sounds. Skin: Warm and dry. No rash or lesions on limited exam. Extremities: No cyanosis or clubbing. Two to 3+ pitting edema of the lower legs, softening above the knees. No palpable knots or cords. Negative Romi sign bilaterally. Radial and pedal pulses intact. Neurological: Alert and oriented. Cranial nerves 2-12 are grossly intact. No gross focal deficits to casual conversation. Psychiatric: anxious mood and affect. Objective Data Vital Signs Vital Signs: Vital Signs - 24 hr 01/29/23 15:00 01/29/23 15:55 01/29/23 15:55 Temperature Pulse Rate 91 94 102 H Respiratory Rate 22 H 22 H 22 H Blood Pressure Pulse Oximetry 94 Oxygen Delivery BiPAP Oxygen Flow Rate Fraction of Inspired Oxygen 01/29/23 16:16 01/29/23 16:00 01/29/23 16:00 Temperature 96.1 F L Pulse Rate 94 86 Respiratory Rate 22 H 16 Blood Pressure 119/64 Pulse Oximetry 93 Oxygen Delivery BiPAP Oxygen Flow Rate Fraction
[2023-01-30] MEDS: amLODIPine BESYLATE 5 MG TABLET 10 MG PO (14:29)
[2023-01-30] MEDS: ZOLPIDEM TARTRATE (*CRX) 5 MG TABLET PO (19:52)
[2023-01-30] MEDS: MELATONIN 5 MG TABLET PO (21:49)
[2023-01-31] VITALS (36 sets, daily range): BP systolic 120–162; BP diastolic 54–76; PULSE 70–863; RESP 19–25; TEMP 35.9–36.6; O2SAT 90–99
[2023-01-31] MEDS: guaiFENesin/DEXTROMETHORPHAN 10 ML UDC PO (00:17)
[2023-01-31] MEDS: ALBUTEROL SULFATE NEB 2.5 MG/3 ML INH INHALATION (00:30)
[2023-01-31] MEDS: IPRATROPIUM BR 0.02% INH SOLN 0.5 MG/2.5 ML VIAL INHALATION ×7 (00:30→21:40)
[2023-01-31] MEDS: AZELASTINE HCL NASAL 0.1% 137 MCG/SPR 30 ML BTL 2 SPRAY NASAL (01:32)
[2023-01-31] MEDS: ALBUTEROL SULFATE NEB 2.5 MG/3 ML INH 5 MG INHALATION ×6 (02:50→21:40)
[2023-01-31 03:05] LABS: Alveolar/Arterial O2 Gradient 46.9 mmHg; Base Excess ABG 10.5 mEq/l (+/-2.0); Fractional Inspired Oxygen 28 %; Modified Allen's Test Pass; Oxygen Content ABG 19.1 %vol (16.0-22.0); Oxygen Saturation ABG 97.4 % (95.0-100.0); Oxyhemoglobin 96.5 % THb (90.0-100.0); PCO2 ABG 50.7 mmHg (35.0-45.0); PO2 ABG 92.9 mmHg (80.0-100.0); PO2 FiO2 Ratio Arterial Blood 3.32 %; Reduced Hemoglobin 3.5 %THb (0-5.0); Site Drawn LEFT RADIAL; pH ABG 7.469 (7.350-7.450)
[2023-01-31 03:06] LABS: Device NON-INVASIVE VENT; Non-Invasive Expiratory Pressure 5 CMH2O; Non-Invasive Inspiratory Pressure 15 CMH2O; Non-Invasive Vent Rate 12 /MIN
--- NOTE | 2023-01-31 04:02 | ECG_ITS ---
Measurements Intervals [place] Rate: 86 P: 82 SD: 153 QRS: 41 QRSD: 90 T: 61 QT: 388 QTc: 465 Interpretive Statements SINUS RHYTHM RIGHT ATRIAL ENLARGEMENT [0.3mV P WAVE] BORDERLINE ECG COMPARED TO ECG 08/25/2022 18:46:39 NO SIGNIFICANT CHANGES Electronically Signed On 01-31-2023 7:44:14 [facility] by Mark Davey M.D.
[2023-01-31] MEDS: POTASSIUM CHLORIDE 20 MEQ ER TABLET 40 MEQ PO ×2 (04:16→20:32)
[2023-01-31] MEDS: MAGNESIUM SULF 2 GM/WATER 50ML 2 GM/50 ML BAG IVPB (04:16)
[2023-01-31] MEDS: methylPREDNISolone SOD SUCC 40 MG VIAL IV PUSH ×4 (05:15→23:25)
--- NOTE | 2023-01-31 09:57 | PM.IMPN ---
Progress Note: A&P Assessment and Plan (1) Acute respiratory failure with hypoxia: Code(s): J96.01 - Acute respiratory failure with hypoxia Status: Acute (2) Asthma exacerbation: Code(s): J45.901 - Unspecified asthma with (acute) exacerbation Status: Acute (3) Bilateral lower extremity edema: Code(s): R60.0 - Localized edema Status: Acute (4) Diastolic dysfunction: Code(s): I51.89 - Other ill-defined heart diseases Status: Acute (5) Obstructive Sleep Apnea-Hypopnea Syndrome: Code(s): G47.33 - Obstructive sleep apnea (adult) (pediatric) Status: Acute (6) Benign essential hypertension: Onset Date: Unknown Code(s): I10 - Essential (primary) hypertension Status: Chronic (7) Hyperglobulinemia: Code(s): R77.1 - Abnormality of globulin Status: Acute (8) Hypoglobulinemia: Code(s): R77.1 - Abnormality of globulin Status: Acute Plan Acute respiratory failure, asthma exacerbation Continue with current management Continue with IV ceftriaxone and oral doxycycline Continue with hospital BiPAP, to be switched to her home CPAP with settings monitored as per Pulmonary DuoNeb nebulizers as needed Continue with IV steroid, taper as per clinical response Patient had mild jump in WBC count from 7.4-12.6 due to IV steroids Worsening shortness of breath and wheezing Increase methylprednisolone to 40 mg q.6 hour IV per spinning lathe operator hydraulic recommendation 01/30 Wheezing improving, patient feel tired, ABG suggest CO2 retention, patient is placed on CPAP Chronic diastolic dysfunction 2D echo with color Doppler reviewed which showed hyperdynamic preserved LV function estimated at greater than 70% Patient is on metoprolol succinate 50 mg p.o. daily which will Continue with oral Bumex Strict input and output monitoring PT/OT evaluation ordered Low IgG and high IgA level On no etiologies Consult heme oncologist for evaluation treatment Uncontrolled hypertension Started amlodipine 10 mg once and daily, losartan 50 mg once and daily 01/30 Started hydralazine 10 mg q.6 hours p.r.n. with parameters Blood pressure is better controlled Continue current medications Anxiety Patient has anxiety, worse because of medications, including bronchodilators methylprednisolone Start Xanax 0.5 mg t.i.d. p.r.n.po and ambien 5 mg qhs prn Subjective Date/time seen: 01/31/23 09:57 Interval history: I saw and examined the patient today. Patient feels no improvement, patient still has cough, patient feels tired. Anxiety is better controlled. Patient denies chest pain, headache, abdomen pain, nausea vomiting diarrhea. ABG shows pCO2 retention Exam Narrative: General: Moderately ill-appearing female sitting up in bed on BiPAP. Weight: 77.5 kg. BMI: 33.4. HEENT: Normocephalic, atraumatic. PERRL, EOMI. Sclera anicteric. Oral mucosa appears moist to the BiPAP mask. Neck: Supple. No JVD. Respiratory: Lung sounds are significantly diminished bilaterally, wheezing bilaterally Cardiovascular: Tachycardic with normal S1-S2. Gastrointestinal: Abdomen is soft, nontender, and nondistended with positive bowel sounds. Skin: Warm and dry. No rash or lesions on limited exam. Extremities: No cyanosis or clubbing. Two to 3+ pitting edema of the lower legs, softening above the knees. No palpable knots or cords. Negative Romi sign bilaterally. Radial and pedal pulses intact. Neurological: Alert and oriented. Cranial nerves 2-12 are grossly intact. No gross focal deficits to casual conversation. Psychiatric: anxious mood and affect, better controlled Objective Data Vital Signs Vital Signs: Vital Signs - 24 hr 01/30/23 11:47 01/30/23 11:15 01/30/23 11:25 Temperature 97.7 F Pulse Rate 96 83 85 Respiratory Rate 20 20 20 Blood Pressure 188/84 H Pulse Oximetry 95 Oxygen Delivery Oxygen Flow Rate 01/30/23 10:00 01/30/23 12:00
[2023-01-31] MEDS: BUMETANIDE 1 MG TABLET 2 MG PO (10:35)
[2023-01-31] MEDS: amLODIPine BESYLATE 5 MG TABLET 10 MG PO (10:35)
[2023-01-31] MEDS: FERROUS SULFATE 325 MG TABLET DR BY MOUTH (10:36)
[2023-01-31] MEDS: HYDROcodone/acetaminophen (*CRX) 5-325 MG TABLET 1 TAB PO (10:36)
[2023-01-31] MEDS: ALPRAZolam (*CRX) 0.5 MG TABLET PO ×2 (10:37→22:19)
[2023-01-31] MEDS: guaiFENesin 12 HR 600 MG TABCR PO ×2 (10:37→20:16)
[2023-01-31] MEDS: dilTIAZem HCL CD 120 MG CAP.24HR PO (10:37)
[2023-01-31] MEDS: LOSARTAN POTASSIUM 50 MG TABLET PO (10:38)
[2023-01-31] MEDS: METOPROLOL SUCCINATE EXT REL 50 MG TABCR PO (10:38)
[2023-01-31] MEDS: SERTRALINE HCL 50 MG TABLET 100 MG PO (10:39)
[2023-01-31] MEDS: DOXYCYCLINE HYCLATE 100 MG TABLET PO (10:41)
[2023-01-31] MEDS: ENOXAPARIN 40 MG/0.4 ML SYRINGE SUB-Q (10:41)
[2023-01-31 16:39] LABS: Basophils Percent Auto 0.1 % (0.2-1.2); Eosinophils Percent Auto 0.1 % (0-4.4); Hematocrit 40.3 % (37.0-47.0); Immature Granulocyte Absolute 0.07 K/mm3 (0.00-0.031); Immature Granulocyte Percent A 0.8 % (0-0.5); Lymphocytes Absolute Auto 0.56 K/mm3 (0.9-3.2); Lymphocytes Percent Auto 6.2 % (18.3-44.2); Mean Corpuscular HGB Conc 32.3 g/dl (32-36); Mean Corpuscular Hemoglobin 27.2 pg (26-34); Mean Corpuscular Volume 84.3 fl (80-100); Mean Platelet Volume 10.4 fl (7.4-10.4); Monocytes Absolute Auto 0.4 K/mm3 (0.1-0.6); Monocytes Percent Auto 4.6 % (2.6-8.5); Neutrophils Percent Auto 88.2 % (45.5-73.1); Platelet Count Result 281 k/mm3 (150-375); Red Blood Count 4.78 M/mm3 (4.2-5.4); Red Cell Distribution Width 14.9 % (11.5-14.5); White Blood Count 9.1 K/mm3 (4.5-10.0)
[2023-01-31 16:49] LABS: Anion Gap 4 mmol/L (8-16); Blood Urea Nitrogen 26 mg/dL (7-17); Calcium 8.6 mg/dL (8.4-10.2); Carbon Dioxide 38 mmol/L (22-30); Chloride 82 mmol/L (98-107); Estimated CRCL calculation 39 ml/min; Estimated Glomerular Filt Rate > 60; Glucose 154 mg/dL (65-110); Potassium 2.9 mmol/L (3.4-5.0); Sodium 124 mmol/L (137-145)
[2023-01-31] MEDS: KCL 40 MEQ/WATER 100 ML 100 ML 25 ML IVPB (19:59)
[2023-01-31] MEDS: SODIUM CHLORIDE 0.9% IV 250 ML 25 ML (20:24)
[2023-02-01] VITALS (32 sets, daily range): BP systolic 131–155; BP diastolic 55–72; PULSE 70–82; RESP 13–24; TEMP 36.2–36.7; O2SAT 87–100
[2023-02-01] MEDS: ALBUTEROL SULFATE NEB 2.5 MG/3 ML INH 5 MG INHALATION ×7 (00:33→23:39)
[2023-02-01] MEDS: IPRATROPIUM BR 0.02% INH SOLN 0.5 MG/2.5 ML VIAL INHALATION ×7 (00:34→23:39)
[2023-02-01] MEDS: methylPREDNISolone SOD SUCC 40 MG VIAL IV PUSH ×3 (05:17→17:48)
[2023-02-01] MEDS: amLODIPine BESYLATE 5 MG TABLET 10 MG PO (08:38)
[2023-02-01] MEDS: ALPRAZolam (*CRX) 0.5 MG TABLET PO ×2 (08:38→21:28)
[2023-02-01] MEDS: HYDROcodone/acetaminophen (*CRX) 5-325 MG TABLET 1 TAB PO (08:39)
[2023-02-01] MEDS: LOSARTAN POTASSIUM 50 MG TABLET PO (08:39)
[2023-02-01] MEDS: METOPROLOL SUCCINATE EXT REL 50 MG TABCR PO (08:40)
[2023-02-01] MEDS: BUMETANIDE 1 MG TABLET 2 MG PO (08:40)
[2023-02-01] MEDS: guaiFENesin 12 HR 600 MG TABCR PO ×2 (08:40→21:28)
[2023-02-01] MEDS: dilTIAZem HCL CD 120 MG CAP.24HR PO (08:40)
[2023-02-01] MEDS: SERTRALINE HCL 50 MG TABLET 100 MG PO (08:40)
[2023-02-01] MEDS: ENOXAPARIN 40 MG/0.4 ML SYRINGE SUB-Q (08:41)
--- NOTE | 2023-02-01 09:07 | PM.IMPN ---
Progress Note: A&P Assessment and Plan (1) Acute respiratory failure with hypoxia: Code(s): J96.01 - Acute respiratory failure with hypoxia Status: Acute (2) Asthma exacerbation: Code(s): J45.901 - Unspecified asthma with (acute) exacerbation Status: Acute (3) Bilateral lower extremity edema: Code(s): R60.0 - Localized edema Status: Acute (4) Diastolic dysfunction: Code(s): I51.89 - Other ill-defined heart diseases Status: Acute (5) Obstructive Sleep Apnea-Hypopnea Syndrome: Code(s): G47.33 - Obstructive sleep apnea (adult) (pediatric) Status: Acute (6) Benign essential hypertension: Onset Date: Unknown Code(s): I10 - Essential (primary) hypertension Status: Chronic (7) Hyperglobulinemia: Code(s): R77.1 - Abnormality of globulin Status: Acute (8) Hypoglobulinemia: Code(s): R77.1 - Abnormality of globulin Status: Acute Plan Acute respiratory failure, asthma exacerbation on IV ceftriaxone and oral doxycycline till 01/31, dc per Dr. Oseguera procalcitionin -ve and cxr clear dc BiPAP 01/31, to be switched to her home CPAP with settings monitored as per Pulmonary DuoNeb nebulizers as needed Patient had mild jump in WBC count from 7.4-12.6 due to IV steroids Worsening shortness of breath and wheezing Increase methylprednisolone to 40 mg q.6 hour IV per medical record transcriber recommendation 01/30 Wheezing improving, patient feel tired, ABG suggest CO2 retention, patient is placed on CPAP Chronic diastolic dysfunction 2D echo with color Doppler reviewed which showed hyperdynamic preserved LV function estimated at greater than 70% Patient is on metoprolol succinate 50 mg p.o. daily Continue with oral Bumex Strict input and output monitoring PT/OT evaluation ordered Hyponatremia and hypokalemia Likely secondary to Bumex Replace with sodium chloride and potassium chloride po Follow-up magnesium level Correct electrolyte abnormality accordingly Low IgG and high IgA level On no etiologies Consult heme oncologist for evaluation treatment Uncontrolled hypertension Started amlodipine 10 mg once and daily, losartan 50 mg once and daily 01/30 Started hydralazine 10 mg q.6 hours p.r.n. with parameters Blood pressure is better controlled Continue current medications Anxiety Patient has anxiety, worse because of medications, including bronchodilators methylprednisolone Start Xanax 0.5 mg t.i.d. p.r.n.po dc ambien 5 mg qhs prn Subjective Date/time seen: 02/01/23 09:07 Interval history: I saw exam patient today. Patient was anxious, complaining of general weakness, shortness breath, cough. Patient is on 2 L oxygen, has cough, with scant phlegm. Patient was drowsy, but patient still request Xanax p.o. during the day for anxiety Exam Narrative: General: Moderately ill-appearing female sitting up in bed on BiPAP. Weight: 77.5 kg. BMI: 33.4. HEENT: Normocephalic, atraumatic. PERRL, EOMI. Sclera anicteric. Oral mucosa appears moist to the BiPAP mask. Neck: Supple. No JVD. Respiratory: Lung sounds are significantly diminished bilaterally, wheezing bilaterally Cardiovascular: Tachycardic with normal S1-S2. Gastrointestinal: Abdomen is soft, nontender, and nondistended with positive bowel sounds. Skin: Warm and dry. No rash or lesions on limited exam. Extremities: No cyanosis or clubbing. Two to 3+ pitting edema of the lower legs, softening above the knees. No palpable knots or cords. Negative Romi sign bilaterally. Radial and pedal pulses intact. Neurological: Alert and oriented. Cranial nerves 2-12 are grossly intact. No gross focal deficits to casual conversation. Psychiatric: anxious mood and affect, better controlled Objective Data Vital Signs Vital Signs: Vital Signs - 24 hr 01/31/23 10:00 01/31/23 11:26 01/31/23 12:00 Temperature 96.8 F L Pulse Rate 90 75 71 Respiratory Rate 20
[2023-02-01 09:29] LABS: Basophils Percent Auto 0.1 % (0.2-1.2); Eosinophils Percent Auto 0.1 % (0-4.4); Hematocrit 41.8 % (37.0-47.0); Immature Granulocyte Absolute 0.09 K/mm3 (0.00-0.031); Immature Granulocyte Percent A 0.8 % (0-0.5); Lymphocytes Absolute Auto 0.55 K/mm3 (0.9-3.2); Mean Corpuscular HGB Conc 33.5 g/dl (32-36); Mean Corpuscular Hemoglobin 27.5 pg (26-34); Mean Corpuscular Volume 82.1 fl (80-100); Mean Platelet Volume 10.7 fl (7.4-10.4); Monocytes Absolute Auto 0.4 K/mm3 (0.1-0.6); Neutrophils Absolute Auto 9.9 K/mm3 (1.3-6.7); Platelet Count Result 325 k/mm3 (150-375); Red Blood Count 5.09 M/mm3 (4.2-5.4); Red Cell Distribution Width 14.7 % (11.5-14.5)
[2023-02-01 09:38] LABS: Anion Gap 6 mmol/L (8-16); Blood Urea Nitrogen 30 mg/dL (7-17); Calcium 8.6 mg/dL (8.4-10.2); Carbon Dioxide 35 mmol/L (22-30); Chloride 84 mmol/L (98-107); Estimated CRCL calculation 40 ml/min; Estimated Glomerular Filt Rate > 60; Glucose 130 mg/dL (65-110); Magnesium 2.4 mg/dL (1.6-2.3); Potassium 3.8 mmol/L (3.4-5.0); Sodium 125 mmol/L (137-145)
[2023-02-01] MEDS: LACTATED RINGERS 1,000 ML 75 ML IV CONT (09:55)
[2023-02-01 16:24] LABS: Basophils Percent Auto 0.2 % (0.2-1.2); Hematocrit 39.8 % (37.0-47.0); Hemoglobin 13.4 g/dL (12.0-15.0); Immature Granulocyte Absolute 0.09 K/mm3 (0.00-0.031); Immature Granulocyte Percent A 0.8 % (0-0.5); Lymphocytes Absolute Auto 0.55 K/mm3 (0.9-3.2); Lymphocytes Percent Auto 4.8 % (18.3-44.2); Mean Corpuscular HGB Conc 33.7 g/dl (32-36); Mean Corpuscular Hemoglobin 27.9 pg (26-34); Mean Corpuscular Volume 82.7 fl (80-100); Mean Platelet Volume 11.3 fl (7.4-10.4); Monocytes Absolute Auto 0.9 K/mm3 (0.1-0.6); Monocytes Percent Auto 7.5 % (2.6-8.5); Neutrophils Percent Auto 86.7 % (45.5-73.1); Platelet Count Result 299 k/mm3 (150-375); Red Blood Count 4.81 M/mm3 (4.2-5.4); Red Cell Distribution Width 14.7 % (11.5-14.5); White Blood Count 11.6 K/mm3 (4.5-10.0)
[2023-02-01] MEDS: FLUTICASONE PROPIONATE 0.05% NA SPR 16 GM BTL (*BKC) 1 SPRAY NASAL (16:44)
[2023-02-01] MEDS: POTASSIUM CHLORIDE 20 MEQ PACKET (FOR LIQUID) 40 MEQ PO (16:44)
[2023-02-01] MEDS: SODIUM CHLORIDE 500 MG TABLET 2000 MG PO (16:44)
[2023-02-01 20:04] LABS: Immunoglobulin E 134 kU/L (<=114)
[2023-02-01] MEDS: MELATONIN 5 MG TABLET PO (21:28)
[2023-02-02] VITALS (16 sets, daily range): BP systolic 124–188; BP diastolic 55–87; PULSE 70–88; RESP 18–20; TEMP 35.7–36.7; O2SAT 91–98
[2023-02-02] MEDS: methylPREDNISolone SOD SUCC 40 MG VIAL IV PUSH ×4 (00:39→17:14)
[2023-02-02 01:09] LABS: Adenovirus DNA Not Detected (Not Detected); Chlamydophila pneumoniae Not Detected (Not Detected); Coronavirus 229E Not Detected (Not Detected); Coronavirus HKU1 Not Detected (Not Detected); Coronavirus NL63 Not Detected (Not Detected); Coronavirus OC43 Not Detected (Not Detected); Human Metapneumovirus Not Detected (Not Detected); Human Parainfluenza Virus 1 Not Detected (Not Detected); Human Parainfluenza Virus 2 Not Detected (Not Detected); Human Parainfluenza Virus 3 Not Detected (Not Detected); Human Parainfluenza Virus 4 Not Detected (Not Detected); Human RSV B Detected (Not Detected); Influenza A Not Detected (Not Detected); Influenza B Not Detected (Not Detected); Mycoplasma pneumoniae Not Detected (Not Detected); Rhinovirus/Enterovirus Not Detected (Not Detected)
[2023-02-02 05:27] LABS: Basophils Percent Auto 0.1 % (0.2-1.2); Eosinophils Percent Auto 0.1 % (0-4.4); Hematocrit 39.6 % (37.0-47.0); Hemoglobin 13.2 g/dL (12.0-15.0); Immature Granulocyte Absolute 0.09 K/mm3 (0.00-0.031); Immature Granulocyte Percent A 0.8 % (0-0.5); Lymphocytes Absolute Auto 0.39 K/mm3 (0.9-3.2); Lymphocytes Percent Auto 3.6 % (18.3-44.2); Mean Corpuscular HGB Conc 33.3 g/dl (32-36); Mean Corpuscular Hemoglobin 27.7 pg (26-34); Monocytes Absolute Auto 0.4 K/mm3 (0.1-0.6); Monocytes Percent Auto 3.9 % (2.6-8.5); Neutrophils Absolute Auto 9.8 K/mm3 (1.3-6.7); Neutrophils Percent Auto 91.5 % (45.5-73.1); Platelet Count Result 275 k/mm3 (150-375); Red Blood Count 4.77 M/mm3 (4.2-5.4); Red Cell Distribution Width 14.7 % (11.5-14.5); White Blood Count 10.8 K/mm3 (4.5-10.0)
[2023-02-02 05:36] LABS: Anion Gap 5 mmol/L (8-16); Blood Urea Nitrogen 30 mg/dL (7-17); Calcium 8.6 mg/dL (8.4-10.2); Carbon Dioxide 34 mmol/L (22-30); Chloride 88 mmol/L (98-107); Estimated CRCL calculation 40 ml/min; Estimated Glomerular Filt Rate > 60; Glucose 141 mg/dL (65-110); Magnesium 2.4 mg/dL (1.6-2.3); Potassium 3.4 mmol/L (3.4-5.0); Sodium 127 mmol/L (137-145)
--- NOTE | 2023-02-02 09:34 | PCSTNOTE ---
Please refer to the Modified Barium Swallow Evaluation in the EMR.
[2023-02-02] MEDS: METOPROLOL SUCCINATE EXT REL 50 MG TABCR PO (09:39)
[2023-02-02] MEDS: LOSARTAN POTASSIUM 50 MG TABLET PO (09:39)
[2023-02-02] MEDS: dilTIAZem HCL CD 120 MG CAP.24HR PO (09:39)
[2023-02-02] MEDS: SODIUM CHLORIDE 500 MG TABLET 2000 MG PO ×2 (09:40→17:09)
[2023-02-02] MEDS: BUMETANIDE 1 MG TABLET 2 MG PO (09:40)
[2023-02-02] MEDS: SERTRALINE HCL 50 MG TABLET 150 MG PO (09:40)
[2023-02-02] MEDS: amLODIPine BESYLATE 5 MG TABLET 10 MG PO (09:40)
[2023-02-02] MEDS: FERROUS SULFATE 325 MG TABLET DR BY MOUTH (09:40)
[2023-02-02] MEDS: POTASSIUM CHLORIDE 20 MEQ PACKET (FOR LIQUID) 40 MEQ PO ×2 (09:41→17:08)
[2023-02-02] MEDS: guaiFENesin 12 HR 600 MG TABCR PO ×2 (09:41→21:34)
[2023-02-02] MEDS: ENOXAPARIN 40 MG/0.4 ML SYRINGE SUB-Q (09:41)
[2023-02-02] MEDS: FLUTICASONE PROPIONATE 0.05% NA SPR 16 GM BTL (*BKC) 1 SPRAY NASAL ×2 (09:41→17:08)
[2023-02-02] MEDS: ALPRAZolam (*CRX) 0.5 MG TABLET PO ×2 (09:45→17:26)
--- NOTE | 2023-02-02 10:37 | PM.IMPN ---
Progress Note: A&P Assessment and Plan (1) Acute respiratory failure with hypoxia: Code(s): J96.01 - Acute respiratory failure with hypoxia Status: Acute (2) Asthma exacerbation: Code(s): J45.901 - Unspecified asthma with (acute) exacerbation Status: Acute (3) Bilateral lower extremity edema: Code(s): R60.0 - Localized edema Status: Acute (4) Diastolic dysfunction: Code(s): I51.89 - Other ill-defined heart diseases Status: Acute (5) Obstructive Sleep Apnea-Hypopnea Syndrome: Code(s): G47.33 - Obstructive sleep apnea (adult) (pediatric) Status: Acute (6) Benign essential hypertension: Onset Date: Unknown Code(s): I10 - Essential (primary) hypertension Status: Chronic (7) Hyperglobulinemia: Code(s): R77.1 - Abnormality of globulin Status: Acute (8) Hypoglobulinemia: Code(s): R77.1 - Abnormality of globulin Status: Acute Plan Acute respiratory failure, asthma exacerbation on IV ceftriaxone and oral doxycycline till 01/31, dc per Dr. Oseguera procalcitionin -ve and cxr clear dc BiPAP 01/31, to be switched to her home CPAP with settings monitored as per Pulmonary DuoNeb nebulizers as needed Patient had mild jump in WBC count from 7.4-12.6 due to IV steroids Worsening shortness of breath and wheezing Increase methylprednisolone to 40 mg q.6 hour IV per acquisitions analyst recommendation 01/30 No significant wheezing, patient on BiPAP and nasal cannular Chronic diastolic dysfunction 2D echo with color Doppler reviewed which showed hyperdynamic preserved LV function estimated at greater than 70% Patient is on metoprolol succinate 50 mg p.o. daily Continue with oral Bumex Strict input and output monitoring PT/OT evaluation ordered Hyponatremia and hypokalemia Likely secondary to Bumex Replace with sodium chloride and potassium chloride po Follow-up magnesium level Correct electrolyte abnormality accordingly Low IgG and high IgA level On no etiologies Consult heme oncologist for evaluation treatment Uncontrolled hypertension Started amlodipine 10 mg once and daily, losartan 50 mg once and daily 01/30 Started hydralazine 10 mg q.6 hours p.r.n. with parameters Blood pressure is better controlled Continue current medications Anxiety Patient has anxiety, worse because of medications, including bronchodilators methylprednisolone Start Xanax 0.5 mg t.i.d. p.r.n.po dc ambien 5 mg qhs prn Subjective Date/time seen: 02/02/23 10:37 Interval history: I saw exam patient today. Patient has 3 surgeon, has general weakness, still has shortness breath at rest, patient is on BiPAP and nasal cannular alternative Exam Narrative: General: Moderately ill-appearing female sitting up in bed on BiPAP. Weight: 77.5 kg. BMI: 33.4. HEENT: Normocephalic, atraumatic. PERRL, EOMI. Sclera anicteric. Oral mucosa appears moist to the BiPAP mask. Neck: Supple. No JVD. Respiratory: Lung sounds are significantly diminished bilaterally, wheezing bilaterally Cardiovascular: Tachycardic with normal S1-S2. Gastrointestinal: Abdomen is soft, nontender, and nondistended with positive bowel sounds. Skin: Warm and dry. No rash or lesions on limited exam. Extremities: No cyanosis or clubbing. Two to 3+ pitting edema of the lower legs, softening above the knees. No palpable knots or cords. Negative Romi sign bilaterally. Radial and pedal pulses intact. Neurological: Alert and oriented. Cranial nerves 2-12 are grossly intact. No gross focal deficits to casual conversation. Psychiatric: anxious mood and affect, better controlled Objective Data Vital Signs Vital Signs: Vital Signs - 24 hr 02/01/23 11:41 02/01/23 13:26 02/01/23 13:32 Temperature 97.2 F L Pulse Rate 78 77 77 Respiratory Rate 22 H 18 18 Blood Pressure 155/72 H Pulse Oximetry 92 95 Oxygen Delivery Nasal Cannula Oxygen Flow Rate 2
--- NOTE | 2023-02-02 11:10 | PC.NURSE ---
This patient, Tatianna Bailey, was received from IMU on 02/02/23 at 1110. Patient/family oriented to unit policies and routines. Report received from Fabio COFFEY.
--- NOTE | 2023-02-02 11:30 | PC.NURSE ---
This patient, Tatianna Bailey, was transferred to [ [facility]] on 02/02/23 at 1122. Personal belongings sent with patient. Report given to [ ALEXX Scales]. Appropriate documentation sent with patient.
[2023-02-02] MEDS: IPRATROPIUM BR 0.02% INH SOLN 0.5 MG/2.5 ML VIAL INHALATION ×3 (13:00→20:38)
[2023-02-02] MEDS: ALBUTEROL SULFATE NEB 2.5 MG/3 ML INH 5 MG INHALATION ×3 (13:00→20:37)
--- NOTE | 2023-02-02 14:07 | PCOTNOTE ---
Attempted OT evaluation, pt refused. RN aware.
[2023-02-02 15:02] LABS: Basophils Percent Auto 0.1 % (0.2-1.2); Hematocrit 39.1 % (37.0-47.0); Hemoglobin 12.5 g/dL (12.0-15.0); Immature Granulocyte Percent A 1.1 % (0-0.5); Lymphocytes Absolute Auto 0.35 K/mm3 (0.9-3.2); Lymphocytes Percent Auto 3.7 % (18.3-44.2); Mean Corpuscular Hemoglobin 27.2 pg (26-34); Mean Platelet Volume 11.2 fl (7.4-10.4); Monocytes Absolute Auto 0.4 K/mm3 (0.1-0.6); Monocytes Percent Auto 3.7 % (2.6-8.5); Neutrophils Absolute Auto 8.6 K/mm3 (1.3-6.7); Neutrophils Percent Auto 91.4 % (45.5-73.1); Platelet Count Result 286 k/mm3 (150-375); White Blood Count 9.4 K/mm3 (4.5-10.0)
[2023-02-02] MEDS: MELATONIN 5 MG TABLET PO (21:34)
[2023-02-03] VITALS (18 sets, daily range): BP systolic 95–134; BP diastolic 52–58; PULSE 67–99; RESP 16–26; TEMP 36.1–36.4; O2SAT 88–98; BMI 32.8
[2023-02-03] MEDS: methylPREDNISolone SOD SUCC 40 MG VIAL IV PUSH ×5 (00:27→21:23)
[2023-02-03] MEDS: ALBUTEROL SULFATE NEB 2.5 MG/3 ML INH 5 MG INHALATION ×5 (02:28→20:58)
[2023-02-03] MEDS: IPRATROPIUM BR 0.02% INH SOLN 0.5 MG/2.5 ML VIAL INHALATION ×5 (02:28→20:58)
[2023-02-03 06:54] LABS: Basophils Percent Auto 0.1 % (0.2-1.2); Hematocrit 43.4 % (37.0-47.0); Hemoglobin 14.2 g/dL (12.0-15.0); Immature Granulocyte Absolute 0.26 K/mm3 (0.00-0.031); Immature Granulocyte Percent A 1.8 % (0-0.5); Lymphocytes Absolute Auto 0.79 K/mm3 (0.9-3.2); Lymphocytes Percent Auto 5.3 % (18.3-44.2); Mean Corpuscular HGB Conc 32.7 g/dl (32-36); Mean Corpuscular Hemoglobin 27.7 pg (26-34); Mean Corpuscular Volume 84.6 fl (80-100); Mean Platelet Volume 10.8 fl (7.4-10.4); Monocytes Absolute Auto 0.7 K/mm3 (0.1-0.6); Monocytes Percent Auto 4.6 % (2.6-8.5); Neutrophils Absolute Auto 13.1 K/mm3 (1.3-6.7); Neutrophils Percent Auto 88.2 % (45.5-73.1); Platelet Count Result 339 k/mm3 (150-375); Red Blood Count 5.13 M/mm3 (4.2-5.4); Red Cell Distribution Width 15.4 % (11.5-14.5); White Blood Count 14.8 K/mm3 (4.5-10.0)
[2023-02-03 07:04] LABS: Anion Gap 6 mmol/L (8-16); Blood Urea Nitrogen 37 mg/dL (7-17); Carbon Dioxide 38 mmol/L (22-30); Chloride 89 mmol/L (98-107); Estimated CRCL calculation 33 ml/min; Estimated Glomerular Filt Rate 53; Glucose 153 mg/dL (65-110); Magnesium 2.5 mg/dL (1.6-2.3); Potassium 3.8 mmol/L (3.4-5.0); Sodium 133 mmol/L (137-145)
[2023-02-03] MEDS: guaiFENesin 12 HR 600 MG TABCR PO ×2 (08:25→21:15)
[2023-02-03] MEDS: BUMETANIDE 1 MG TABLET 2 MG PO (08:25)
[2023-02-03] MEDS: amLODIPine BESYLATE 5 MG TABLET 10 MG PO (08:26)
[2023-02-03] MEDS: SODIUM CHLORIDE 500 MG TABLET 2000 MG PO ×2 (08:26→17:29)
[2023-02-03] MEDS: METOPROLOL SUCCINATE EXT REL 50 MG TABCR PO (08:27)
[2023-02-03] MEDS: SERTRALINE HCL 50 MG TABLET 150 MG PO (08:27)
[2023-02-03] MEDS: POTASSIUM CHLORIDE 20 MEQ PACKET (FOR LIQUID) 40 MEQ PO ×2 (08:27→17:29)
[2023-02-03] MEDS: LOSARTAN POTASSIUM 50 MG TABLET PO (08:27)
[2023-02-03] MEDS: dilTIAZem HCL CD 120 MG CAP.24HR PO (08:27)
[2023-02-03] MEDS: ENOXAPARIN 40 MG/0.4 ML SYRINGE SUB-Q (08:28)
[2023-02-03] MEDS: FLUTICASONE PROPIONATE 0.05% NA SPR 16 GM BTL (*BKC) 1 SPRAY NASAL ×2 (08:29→17:31)
--- NOTE | 2023-02-03 15:56 | PM.IMPN ---
Progress Note: A&P Assessment and Plan (1) Acute respiratory failure with hypoxia: Code(s): J96.01 - Acute respiratory failure with hypoxia Status: Acute (2) Asthma exacerbation: Code(s): J45.901 - Unspecified asthma with (acute) exacerbation Status: Acute (3) Bilateral lower extremity edema: Code(s): R60.0 - Localized edema Status: Acute (4) Diastolic dysfunction: Code(s): I51.89 - Other ill-defined heart diseases Status: Acute (5) Obstructive Sleep Apnea-Hypopnea Syndrome: Code(s): G47.33 - Obstructive sleep apnea (adult) (pediatric) Status: Acute (6) Benign essential hypertension: Onset Date: Unknown Code(s): I10 - Essential (primary) hypertension Status: Chronic (7) Hyperglobulinemia: Code(s): R77.1 - Abnormality of globulin Status: Acute (8) Hypoglobulinemia: Code(s): R77.1 - Abnormality of globulin Status: Acute Plan Acute respiratory failure, asthma exacerbation on IV ceftriaxone and oral doxycycline till 01/31, dc per Dr. Oseguera procalcitionin -ve and cxr clear dc BiPAP 01/31, to be switched to her home CPAP with settings monitored as per Pulmonary DuoNeb nebulizers as needed Patient had mild jump in WBC count from 7.4-12.6 due to IV steroids Worsening shortness of breath and wheezing Increase methylprednisolone to 40 mg q.6 hour IV per personnel technician recommendation 01/30 No significant wheezing, patient on nasal cannular Chronic diastolic dysfunction 2D echo with color Doppler reviewed which showed hyperdynamic preserved LV function estimated at greater than 70% Patient is on metoprolol succinate 50 mg p.o. daily on oral Bumex Strict input and output monitoring PT/OT evaluation ordered hold Bumex because of BUN trending up Hyponatremia and hypokalemia Likely secondary to Bumex Replace with sodium chloride and potassium chloride po Follow-up magnesium level Correct electrolyte abnormality accordingly Low IgG and high IgA level On no etiologies Consult heme oncologist for evaluation treatment Uncontrolled hypertension Started amlodipine 10 mg once and daily, losartan 50 mg once and daily 01/30 Started hydralazine 10 mg q.6 hours p.r.n. with parameters Blood pressure is better controlled Continue current medications Anxiety Patient has anxiety, worse because of medications, including bronchodilators methylprednisolone Start Xanax 0.5 mg t.i.d. p.r.n.po dc ambien 5 mg qhs prn Dysphagia Patient is on modified diet Evaluation by speech therapist daily Subjective Date/time seen: 02/03/23 15:56 Interval history: I saw exam patient today. Patient feels better today, mental status improving, patient has no appetite, but feels thirsty, patient wishes to have ice chips and coffee, patient is off BiPAP, on nasal cannular Exam Narrative: General: Ill-appearing, off BiPAP, on nasal cannular, weight: 77.5 kg. BMI: 33.4. HEENT: Normocephalic, atraumatic. PERRL, EOMI. Sclera anicteric. Oral mucosa appears moist Neck: Supple. No JVD. Respiratory: Lung sounds are significantly diminished bilaterally, wheezing resolves Cardiovascular: Tachycardic with normal S1-S2. Gastrointestinal: Abdomen is soft, nontender, and nondistended with positive bowel sounds. Skin: Warm and dry. No rash or lesions on limited exam. Extremities: No cyanosis or clubbing. Two to 3+ pitting edema of the lower legs, softening above the knees. No palpable knots or cords. Negative Romi sign bilaterally. Radial and pedal pulses intact. Neurological: Alert and oriented. Cranial nerves 2-12 are grossly intact. No gross focal deficits to casual conversation. Psychiatric: anxious mood and affect, better controlled Objective Data Vital Signs Vital Signs: Vital Signs - 24 hr 02/02/23 16:27 02/02/23 16:43 02/02/23 20:40 Temperature Pulse Rate 76 84 Respiratory Rate 20 20 20 Blood Press
[2023-02-03] MEDS: AZELASTINE HCL NASAL 0.1% 137 MCG/SPR 30 ML BTL 2 SPRAY NASAL (17:30)
[2023-02-03] MEDS: MELATONIN 5 MG TABLET PO (21:15)
[2023-02-04] VITALS (17 sets, daily range): BP systolic 126–150; BP diastolic 50–72; PULSE 73–86; RESP 15–20; TEMP 35.9–36.3; O2SAT 91–98
[2023-02-04] MEDS: IPRATROPIUM BR 0.02% INH SOLN 0.5 MG/2.5 ML VIAL INHALATION ×6 (00:09→23:39)
[2023-02-04] MEDS: ALBUTEROL SULFATE NEB 2.5 MG/3 ML INH 5 MG INHALATION ×6 (00:09→23:39)
[2023-02-04] MEDS: methylPREDNISolone SOD SUCC 40 MG VIAL IV PUSH (05:22)
--- NOTE | 2023-02-04 09:48 | PM.IMPN ---
Progress Note: A&P Assessment and Plan (1) Acute respiratory failure with hypoxia: Code(s): J96.01 - Acute respiratory failure with hypoxia Status: Acute (2) Asthma exacerbation: Code(s): J45.901 - Unspecified asthma with (acute) exacerbation Status: Acute (3) Bilateral lower extremity edema: Code(s): R60.0 - Localized edema Status: Acute (4) Diastolic dysfunction: Code(s): I51.89 - Other ill-defined heart diseases Status: Acute (5) Obstructive Sleep Apnea-Hypopnea Syndrome: Code(s): G47.33 - Obstructive sleep apnea (adult) (pediatric) Status: Acute (6) Benign essential hypertension: Onset Date: Unknown Code(s): I10 - Essential (primary) hypertension Status: Chronic (7) Hyperglobulinemia: Code(s): R77.1 - Abnormality of globulin Status: Acute (8) Hypoglobulinemia: Code(s): R77.1 - Abnormality of globulin Status: Acute Plan Acute respiratory failure, asthma exacerbation on IV ceftriaxone and oral doxycycline till 01/31, dc per Dr. Oseguera procalcitionin -ve and cxr clear dc BiPAP 01/31, to be switched to her home CPAP with settings monitored as per Pulmonary DuoNeb nebulizers as needed Patient had mild jump in WBC count from 7.4-12.6 due to IV steroids Worsening shortness of breath and wheezing Increase methylprednisolone to 40 mg q.6 hour IV per vp informatics recommendation 01/30 No significant wheezing, patient on nasal cannular RSV turns out po, starts IVIG per vp informatics and cutter grinder Chronic diastolic dysfunction 2D echo with color Doppler reviewed which showed hyperdynamic preserved LV function estimated at greater than 70% Patient is on metoprolol succinate 50 mg p.o. daily on oral Bumex Strict input and output monitoring PT/OT evaluation ordered hold Bumex because of BUN trending up Hyponatremia and hypokalemia Likely secondary to Bumex Replace with sodium chloride and potassium chloride po Follow-up magnesium level Correct electrolyte abnormality accordingly Low IgG and high IgA level On no etiologies Consult heme oncologist for evaluation treatment Uncontrolled hypertension Started amlodipine 10 mg once and daily, losartan 50 mg once and daily 01/30 Started hydralazine 10 mg q.6 hours p.r.n. with parameters Blood pressure is better controlled Continue current medications Anxiety Patient has anxiety, worse because of medications, including bronchodilators methylprednisolone Start Xanax 0.5 mg t.i.d. p.r.n.po dc ambien 5 mg qhs prn Dysphagia Patient is on modified diet Evaluation by speech therapist daily Subjective Date/time seen: 02/04/23 09:48 Interval history: Patient has a general weakness, poor appetite, no obvious distress at rest, she is currently on 2 L nasal cannula saturation 92%.? Per vp informatics, her extended respiratory pathogen panel is positive for RSV type B Exam Narrative: General: Ill-appearing, off BiPAP, on nasal cannular, weight: 77.5 kg. BMI: 33.4. HEENT: Normocephalic, atraumatic. PERRL, EOMI. Sclera anicteric. Oral mucosa appears moist Neck: Supple. No JVD. Respiratory: Lung sounds are significantly diminished bilaterally, wheezing resolves Cardiovascular: Tachycardic with normal S1-S2. Gastrointestinal: Abdomen is soft, nontender, and nondistended with positive bowel sounds. Skin: Warm and dry. No rash or lesions on limited exam. Extremities: No cyanosis or clubbing. Two to 3+ pitting edema of the lower legs, softening above the knees. No palpable knots or cords. Negative Romi sign bilaterally. Radial and pedal pulses intact. Neurological: Alert and oriented. Cranial nerves 2-12 are grossly intact. No gross focal deficits to casual conversation. Psychiatric: anxious mood and affect, better controlled Objective Data Vital Signs Vital Signs: Vital Signs - 24 hr 02/03/23 11:54 02/03/23 13:33 02/03/23 14:00 [place]
[2023-02-04] MEDS: amLODIPine BESYLATE 5 MG TABLET 10 MG PO (09:58)
[2023-02-04] MEDS: FERROUS SULFATE 325 MG TABLET DR BY MOUTH (09:58)
[2023-02-04] MEDS: guaiFENesin 12 HR 600 MG TABCR PO ×2 (09:58→20:57)
[2023-02-04] MEDS: SERTRALINE HCL 50 MG TABLET 150 MG PO (09:58)
[2023-02-04] MEDS: dilTIAZem HCL CD 120 MG CAP.24HR PO (09:58)
[2023-02-04] MEDS: METOPROLOL SUCCINATE EXT REL 50 MG TABCR PO (09:59)
[2023-02-04] MEDS: SODIUM CHLORIDE NASAL GEL 14.1 GM 1 APPLIC NASAL (09:59)
[2023-02-04] MEDS: SODIUM CHLORIDE 500 MG TABLET 2000 MG PO ×2 (09:59→17:42)
[2023-02-04] MEDS: POTASSIUM CHLORIDE 20 MEQ PACKET (FOR LIQUID) 40 MEQ PO ×2 (09:59→17:41)
[2023-02-04] MEDS: LOSARTAN POTASSIUM 50 MG TABLET PO (09:59)
[2023-02-04] MEDS: ENOXAPARIN 40 MG/0.4 ML SYRINGE SUB-Q (10:00)
[2023-02-04] MEDS: SALINE 0.65% NAS SOLN 44 ML BTL 1 SPRAY NASAL (10:01)
[2023-02-04] MEDS: BENZOCAINE/MENTHOL (*BKC) 18 EA LOZENGE 1 LOZENGE PO (10:04)
--- NOTE | 2023-02-04 10:54 | PCRCNOTE ---
Window of time for administration has passed. See next scheduled administration.
[2023-02-04] MEDS: AZELASTINE HCL NASAL 0.1% 137 MCG/SPR 30 ML BTL 2 SPRAY NASAL ×2 (15:50→17:42)
--- NOTE | 2023-02-04 16:25 | WPDONCPN ---
Progress Note: A/P (1) Hyperglobulinemia Code(s): R77.1 - Abnormality of globulin Status: Acute (2) Hypoglobulinemia Code(s): R77.1 - Abnormality of globulin Status: Acute - Additional Plan Invasive lobular carcinoma. Patient will continue exemestane. 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 Will start her on IV IgG treatment. Serum protein electrophoresis pending but IgG level was low. Upper respiratory infection. RSV positive. This has been managed by the spinneret person. Anemia. Continue oral iron twice a day. Chadwick Enciso MD - Time Spent With Patient Total time spent is greater than 50% in coordination of care (as documented) at patient's floor/unit and/or counseling patient: 25 - 35 minutes Subjective Interval history: Breast cancer Immunoglobulin deficiency Exacerbtion of asthma with iron RSV infection Review of Systems - Review of Systems Patient complain of tiredness and fatigue with some cough without productive sputum. No fevers and chills. She seems to be quite lethargic. Complain of dryness of the mouth. All systems reviewed & are unremarkable except as noted in HPI and bel - Neurologic Reports system reviewed and no additional complaints, except as documented Exam Vital signs: Temp Pulse Resp BP Pulse Ox O2 Del Method O2 Flow Rate 35.9 C L 78 20 150/72 H 91 BiPAP 2 02/04/23 13:57 02/04/23 16:12 02/04/23 16:12 02/04/23 13:57 02/04/23 13:57 02/03/23 23:15 02/03/23 20:59 FiO2 21 01/31/23 16:00 Narrative: Lungs are clear to auscultation bilaterally, occasional wheezing Cardiovascular regular rate rhythm no murmur Abdomen soft nontender nondistended Bowel sounds are positive PN: Objective Data - Labs CBC & Chem 7: 02/03/23 06:38 02/03/23 06:38
[2023-02-04] MEDS: methylPREDNISolone SOD SUCC 40 MG VIAL 20 MG IV PUSH (17:41)
[2023-02-04] MEDS: FLUTICASONE PROPIONATE 0.05% NA SPR 16 GM BTL (*BKC) 2 SPRAY NASAL (17:42)
[2023-02-04] MEDS: ALPRAZolam (*CRX) 0.5 MG TABLET PO (17:55)
[2023-02-04] MEDS: MELATONIN 5 MG TABLET PO (20:57)
[2023-02-05] VITALS (16 sets, daily range): BP systolic 119–133; BP diastolic 52–62; PULSE 55–89; RESP 16–22; TEMP 36.2–36.7; O2SAT 89–98
[2023-02-05] MEDS: IPRATROPIUM BR 0.02% INH SOLN 0.5 MG/2.5 ML VIAL INHALATION ×5 (04:59→21:55)
[2023-02-05] MEDS: ALBUTEROL SULFATE NEB 2.5 MG/3 ML INH 5 MG INHALATION ×5 (04:59→21:50)
[2023-02-05] MEDS: methylPREDNISolone SOD SUCC 40 MG VIAL 20 MG IV PUSH ×2 (05:01→18:21)
[2023-02-05 06:59] LABS: Kappa Lambda Free Ratio RU 117.19 (<=8.69); Kappa Light Chains, Free RU 167.58 mg/L (<=32.90); Lambda Free Light Chains RU 1.43 mg/L (<=3.79)
--- NOTE | 2023-02-05 09:18 | PM.IMPN ---
Progress Note: A&P Assessment and Plan (1) Acute respiratory failure with hypoxia: Code(s): J96.01 - Acute respiratory failure with hypoxia Status: Acute (2) Asthma exacerbation: Code(s): J45.901 - Unspecified asthma with (acute) exacerbation Status: Acute (3) Bilateral lower extremity edema: Code(s): R60.0 - Localized edema Status: Acute (4) Diastolic dysfunction: Code(s): I51.89 - Other ill-defined heart diseases Status: Acute (5) Obstructive Sleep Apnea-Hypopnea Syndrome: Code(s): G47.33 - Obstructive sleep apnea (adult) (pediatric) Status: Acute (6) Benign essential hypertension: Onset Date: Unknown Code(s): I10 - Essential (primary) hypertension Status: Chronic (7) Hyperglobulinemia: Code(s): R77.1 - Abnormality of globulin Status: Acute (8) Hypoglobulinemia: Code(s): R77.1 - Abnormality of globulin Status: Acute Plan Acute respiratory failure, asthma exacerbation on IV ceftriaxone and oral doxycycline till 01/31, dc per Dr. Oseguera procalcitionin -ve and cxr clear dc BiPAP 01/31, to be switched to her home CPAP with settings monitored as per Pulmonary DuoNeb nebulizers as needed Patient had mild jump in WBC count from 7.4-12.6 due to IV steroids Worsening shortness of breath and wheezing Increase methylprednisolone to 40 mg q.6 hour IV per machine i cutter recommendation 01/30 No significant wheezing, patient on nasal cannular RSV turns out po, starts IVIG per machine i cutter and manager molecular 02/04 Chronic diastolic dysfunction 2D echo with color Doppler reviewed which showed hyperdynamic preserved LV function estimated at greater than 70% Patient is on metoprolol succinate 50 mg p.o. daily on oral Bumex Strict input and output monitoring PT/OT evaluation ordered hold Bumex because of BUN trending up Hyponatremia and hypokalemia Likely secondary to Bumex Replace with sodium chloride and potassium chloride po Follow-up magnesium level Correct electrolyte abnormality accordingly Low IgG and high IgA level On no etiologies Consult heme oncologist for evaluation treatment Start IVIG given positive RSV Uncontrolled hypertension Started amlodipine 10 mg once and daily, losartan 50 mg once and daily 01/30 Started hydralazine 10 mg q.6 hours p.r.n. with parameters Blood pressure is better controlled Continue current medications Anxiety Patient has anxiety, worse because of medications, including bronchodilators methylprednisolone Start Xanax 0.5 mg t.i.d. p.r.n.po dc ambien 5 mg qhs prn Dysphagia Patient is on modified diet Evaluation by speech therapist daily Subjective Date/time seen: 02/05/23 09:18 Interval history: I saw exam patient today, patient still has severe cough and scant phlegm, shortness breath is worse with cough. Patient denies chest pain, abdomen pain, nausea vomiting diarrhea. Speech eval patient, recommend to advance patient diet. Exam Narrative: General: Ill-appearing, off BiPAP, on nasal cannular, weight: 77.5 kg. BMI: 33.4. HEENT: Normocephalic, atraumatic. PERRL, EOMI. Sclera anicteric. Oral mucosa appears moist Neck: Supple. No JVD. Respiratory: Lung sounds are significantly diminished bilaterally, wheezing resolves Cardiovascular: Tachycardic with normal S1-S2. Gastrointestinal: Abdomen is soft, nontender, and nondistended with positive bowel sounds. Skin: Warm and dry. No rash or lesions on limited exam. Extremities: No cyanosis or clubbing. Two to 3+ pitting edema of the lower legs, softening above the knees. No palpable knots or cords. Negative Romi sign bilaterally. Radial and pedal pulses intact. Neurological: Alert and oriented. Cranial nerves 2-12 are grossly intact. No gross focal deficits to casual conversation. Psychiatric: anxious mood and affect, better controlled Objective Data Vital Signs Vital Signs: Vital Signs - 24 h
[2023-02-05] MEDS: SODIUM CHLORIDE 500 MG TABLET 2000 MG PO ×2 (10:21→16:49)
[2023-02-05] MEDS: dilTIAZem HCL CD 120 MG CAP.24HR PO (10:22)
[2023-02-05] MEDS: amLODIPine BESYLATE 5 MG TABLET 10 MG PO (10:22)
[2023-02-05] MEDS: guaiFENesin 12 HR 600 MG TABCR PO ×2 (10:22→20:30)
[2023-02-05] MEDS: LOSARTAN POTASSIUM 50 MG TABLET PO (10:23)
[2023-02-05] MEDS: SERTRALINE HCL 50 MG TABLET 150 MG PO (10:23)
[2023-02-05] MEDS: ENOXAPARIN 40 MG/0.4 ML SYRINGE SUB-Q (10:24)
[2023-02-05] MEDS: METOPROLOL SUCCINATE EXT REL 50 MG TABCR PO (10:24)
--- NOTE | 2023-02-05 11:46 | PCNFU ---
Nutrition Follow-Up Complete: Suboptimal po intake related to appetite and dislike of current food and liquid modifications as evidenced by pt report, charted intake Goal:PO intake 50% or greater for meals and supplements Pt is not meeting goal, continue with current goal. Pt current nutrition is Soft and bite sized level 6, heart healthy, level 3 moderately thick liquids. Nutrition ice cream cups TID in place Nutrition recommendation: EMS MANAGER re evaluation for need for thickened liquids, encourage po intake Last recorded weight is 76.997 kg. Bowel Motility: No BM recorded at this time Labs Reviewed: NA:133, GFR:53, Glu:153 Meds Noted: lovenox, solumedrol, KCL Skin: no skin issues noted Additional Notes: Pt continues on a modifed diet and liquids consistency. Intake remains poor at 5-25% due to dislikes of consistency. Nursing suggesting a EMS MANAGER evaluation to see if diet can be upgraded. Recommend a re-evaluation. Encourage po intake of meals and supplements. Monitor po intake, wt, labs. Follow up in 5 days.
--- NOTE | 2023-02-05 12:42 | PCCCNOTE ---
On 02/05/23, the student, [Jenny Patino], provided care and completed [facility] documentation on this patient. I have reviewed the student's documentation and agree with the findings.
[2023-02-05] MEDS: guaiFENesin/DEXTROMETHORPHAN 10 ML UDC PO ×2 (13:18→18:22)
--- NOTE | 2023-02-05 15:37 | PCSTNOTE ---
Please refer to the Modified Barium Swallow Evaluation in the EMR. The patient was seated for a lateral view and presented with 5cc of thin liquid barium via spoon, pudding consistency barium via a spoon, mixed liquid/solid consistency via spoon, cracker coated with barium pudding via spoon, and uncontrolled thin liquid barium. This was presented via a cup & straw. Oral preparatory and oral phase symptoms: none/within functional limits. During the pharyngeal stage, slightly reduced laryngeal elevation was exhibited as evidenced by laryngeal penetration during the swallow of uncontrolled thin liquids. Overall it was shallow and was cleared without aspiration. Impressions: Overall, the patient presents with functional swallow ability throughout all stages of the swallow. Laryngeal penetration was exhibited during uncontrolled swallows but it was cleared without aspiration. Recommendation: Level 6 diet with regular/thin liquids; no further ST is warranted.
[2023-02-05] MEDS: BENZONATATE 100 MG CAPSULE 200 MG PO (16:49)
[2023-02-05] MEDS: POTASSIUM CHLORIDE 20 MEQ ER TABLET 40 MEQ PO ×2 (16:49→18:21)
--- NOTE | 2023-02-05 20:02 | PM.PNPUL ---
Progress Note: A&P Assessment and Plan (1) Respiratory syncytial virus (RSV) infection: Code(s): B33.8 - Other specified viral diseases Status: Acute Assessment and Plan: She has RSV type B on the respiratory pathogen panel sent Jan 27, returned yesterday. She is receiving IVIG for this; no ribavirin available which is another treatment. She was weaned off O2, had a coughing episode earlier, now on 1 L/minute. Tthis explains her prolonged coughing and wheezing. She had a couple months of symptoms before admission. I am not sure if she could have had it for a long time prior to coming in. The initial RSV swab in the ER was negative. (2) Asthma exacerbation: Code(s): J45.901 - Unspecified asthma with (acute) exacerbation Status: Acute Assessment and Plan: Patient carries a history of asthma maintained on Symbicort 160-4.5 at 2 puffs q.12 hours, albuterol nebulizers Q 6 p.r.n., albuterol inhalers 2 puffs Q 4 p.r.n., as a last in 2 sprays each nostril b.i.d. and fluticasone 50 mcg 2 sprays intranasal b.i.d. for sinus disease. Currently the patient is admitted 01/26/23 with worsening shortness of breath, congestion and wheezing over the last 7 days and had hypoxemia in the emergency room with increased work of breathing and was placed on BiPAP. COVID, influenza and RSV RT PCR studies negative. 01/27/23: Patient had increased work of breathing under full face mask BiPAP and at home she uses nasal pillows with CPAP and room air. She was changed to a nasal mask with BiPAP pressures 10/5 on room air and this was much more comfortable for her. When I saw her she was on BiPAP, mild respiratory distress, she was on room air with saturations 97%. She is awake alert and communicative. She said that she felt much better than she did yesterday and stated she was 50% back to normal. She has diffuse expiratory wheezing on exam. I have checked a D-dimer in this is positive. Plan: Patient with an asthma exacerbation but also with hypoxia. Her D-dimer is positive and I will order CT angiogram of the chest as well as upper and lower extremity Dopplers. Echocardiogram will also be ordered to assess LV function, RV function, pulmonary pressures as well as her mitral valve regurgitation. I will treat Solu-Medrol 60 mg IV q.6 hours, albuterol and ipratropium nebulizers q.4 hours. She was complaining of difficulty expectorating and I will place her on guaifenesin 600 mg p.o. q.12 hours as well as the Cornet flutter valve. She was empirically treated with ceftriaxone and doxycycline for possible pneumonia. Today is day 2 and will continue today. I will send a procalcitonin. Regarding her frequent exacerbations and/or infectious complaints I will send an HIV panel, serum immunoglobulins and IgG subclass. Aspergillus titers are pending. 01/28: Patient was off the BiPAP briefly last night. She was attempted on her home CPAP 14 but this did not provider enough air and she was placed back on the hospital BiPAP 10/5 and room air. Currently she is on a nasal mask with the hospital BiPAP breathing 15 times a minute pressures 10/5, tidal volumes 430-450 mL on room air with saturations 96%. Patient states that she is very tired as she has not slept. When she is sitting she is breathing fine but she has dyspnea on exertion. She has a dry cough. White blood cell count 12.6, creatinine 0.9. She is afebrile. She has as expiratory wheezes but they are improved today. Procalcitonin 0.1. Plan: I will decrease the Solu-Medrol to 20 mg IV q.6. I will continue albuterol and ipratropium nebulizers at q.4 hours. She has a white blood cell count today 12.6, no blood cultures were drawn. She is on day 2 ceftriaxone and doxycycline and I will continue today. 01/29: Patient was off the noninvasive ventilator yesterday during the day on room air with adequate saturation. Patient wore
[2023-02-05] MEDS: MELATONIN 5 MG TABLET PO (20:31)
[2023-02-06] VITALS (17 sets, daily range): BP systolic 121–137; BP diastolic 55–75; PULSE 65–93; RESP 18–20; TEMP 36.1–36.6; O2SAT 92–98
[2023-02-06] MEDS: WATER FOR IRRIGATION, STERILE 1,000 ML BOTTLE 1000 ML (00:19)
[2023-02-06] MEDS: BENZONATATE 100 MG CAPSULE 200 MG PO ×3 (00:35→20:46)
[2023-02-06] MEDS: IPRATROPIUM BR 0.02% INH SOLN 0.5 MG/2.5 ML VIAL INHALATION ×6 (03:45→21:15)
[2023-02-06] MEDS: ALBUTEROL SULFATE NEB 2.5 MG/3 ML INH 5 MG INHALATION ×5 (03:45→21:15)
--- NOTE | 2023-02-06 03:55 | PCRCNOTE ---
Window of time for administration has passed. See next scheduled administration.
[2023-02-06] MEDS: methylPREDNISolone SOD SUCC 40 MG VIAL 20 MG IV PUSH ×2 (05:50→17:31)
[2023-02-06] MEDS: guaiFENesin/DEXTROMETHORPHAN 10 ML UDC PO ×2 (05:54→15:04)
[2023-02-06] MEDS: ALPRAZolam (*CRX) 0.5 MG TABLET PO ×2 (06:01→20:46)
[2023-02-06 07:31] LABS: Potassium 4.2 mmol/L (3.4-5.0)
--- NOTE | 2023-02-06 09:01 | PM.IMPN ---
Progress Note: A&P Assessment and Plan (1) Acute respiratory failure with hypoxia: Code(s): J96.01 - Acute respiratory failure with hypoxia Status: Acute (2) Asthma exacerbation: Code(s): J45.901 - Unspecified asthma with (acute) exacerbation Status: Acute (3) Bilateral lower extremity edema: Code(s): R60.0 - Localized edema Status: Acute (4) Diastolic dysfunction: Code(s): I51.89 - Other ill-defined heart diseases Status: Acute (5) Obstructive Sleep Apnea-Hypopnea Syndrome: Code(s): G47.33 - Obstructive sleep apnea (adult) (pediatric) Status: Acute (6) Benign essential hypertension: Onset Date: Unknown Code(s): I10 - Essential (primary) hypertension Status: Chronic (7) Hyperglobulinemia: Code(s): R77.1 - Abnormality of globulin Status: Acute (8) Hypoglobulinemia: Code(s): R77.1 - Abnormality of globulin Status: Acute Plan Acute respiratory failure, asthma exacerbation on IV ceftriaxone and oral doxycycline till 01/31, dc per Dr. Oseguera procalcitionin -ve and cxr clear dc BiPAP 01/31, to be switched to her home CPAP with settings monitored as per Pulmonary DuoNeb nebulizers as needed Patient had mild jump in WBC count from 7.4-12.6 due to IV steroids Worsening shortness of breath and wheezing Increase methylprednisolone to 40 mg q.6 hour IV per engineering operator recommendation 01/30 No significant wheezing, patient on nasal cannular RSV turns out po, starts IVIG per engineering operator and manager council 02/04 Chronic diastolic dysfunction 2D echo with color Doppler reviewed which showed hyperdynamic preserved LV function estimated at greater than 70% Patient is on metoprolol succinate 50 mg p.o. daily on oral Bumex Strict input and output monitoring PT/OT evaluation ordered hold Bumex because of BUN trending up Hyponatremia and hypokalemia Likely secondary to Bumex Replace with sodium chloride and potassium chloride po Follow-up magnesium level Correct electrolyte abnormality accordingly Low IgG and high IgA level On no etiologies Consult heme oncologist for evaluation treatment Start IVIG given positive RSV Uncontrolled hypertension Started amlodipine 10 mg once and daily, losartan 50 mg once and daily 01/30 Started hydralazine 10 mg q.6 hours p.r.n. with parameters Blood pressure is better controlled Continue current medications Anxiety Patient has anxiety, worse because of medications, including bronchodilators methylprednisolone Start Xanax 0.5 mg t.i.d. p.r.n.po dc ambien 5 mg qhs prn Dysphagia Patient is on modified diet Evaluation by speech therapist daily Advance diet per speech evaluation Patient has a general weakness Consult PT OT nurse behavioral health care for evaluation assisting placement Subjective Date/time seen: 02/06/23 09:01 Interval history: I saw and examined patient today, patient condition continued improves, no obvious distress at rest, less cough. Patient denies headache, focal weakness, abdomen pain, nausea vomiting diarrhea. Patient is afebrile blood pressure stable. Patient has a general weakness Exam Narrative: General: Ill-appearing, off BiPAP, on nasal cannular, weight: 77.5 kg. BMI: 33.4. HEENT: Normocephalic, atraumatic. PERRL, EOMI. Sclera anicteric. Oral mucosa appears moist Neck: Supple. No JVD. Respiratory: Lung sounds are significantly diminished bilaterally, wheezing resolves Cardiovascular: Tachycardic with normal S1-S2. Gastrointestinal: Abdomen is soft, nontender, and nondistended with positive bowel sounds. Skin: Warm and dry. No rash or lesions on limited exam. Extremities: No cyanosis or clubbing. Two to 3+ pitting edema of the lower legs, softening above the knees. No palpable knots or cords. Negative Romi sign bilaterally. Radial and pedal pulses intact. Neurological: Alert and oriented. Cranial nerves 2-12 are grossly intact. No
[2023-02-06] MEDS: LOSARTAN POTASSIUM 50 MG TABLET PO (09:33)
[2023-02-06] MEDS: POTASSIUM CHLORIDE 20 MEQ ER TABLET 40 MEQ PO ×2 (09:33→17:31)
[2023-02-06] MEDS: FERROUS SULFATE 325 MG TABLET DR BY MOUTH (09:33)
[2023-02-06] MEDS: guaiFENesin 12 HR 600 MG TABCR PO ×2 (09:33→20:46)
[2023-02-06] MEDS: SODIUM CHLORIDE 500 MG TABLET 2000 MG PO ×2 (09:34→17:32)
[2023-02-06] MEDS: dilTIAZem HCL CD 120 MG CAP.24HR PO (09:34)
[2023-02-06] MEDS: SERTRALINE HCL 50 MG TABLET 150 MG PO (09:34)
[2023-02-06] MEDS: METOPROLOL SUCCINATE EXT REL 50 MG TABCR PO (09:36)
[2023-02-06] MEDS: amLODIPine BESYLATE 5 MG TABLET 10 MG PO (09:39)
[2023-02-06] MEDS: AZELASTINE HCL NASAL 0.1% 137 MCG/SPR 30 ML BTL 2 SPRAY NASAL ×2 (09:40→17:33)
[2023-02-06] MEDS: ENOXAPARIN 40 MG/0.4 ML SYRINGE SUB-Q (09:41)
[2023-02-06] MEDS: FLUTICASONE PROPIONATE 0.05% NA SPR 16 GM BTL (*BKC) 2 SPRAY NASAL ×2 (09:54→17:33)
[2023-02-06 17:05] LABS: Basophils Percent Auto 0.2 % (0.2-1.2); Immature Granulocyte Absolute 0.62 K/mm3 (0.00-0.031); Immature Granulocyte Percent A 4.9 % (0-0.5); Lymphocytes Absolute Auto 1.05 K/mm3 (0.9-3.2); Lymphocytes Percent Auto 8.2 % (18.3-44.2); Mean Corpuscular HGB Conc 31.4 g/dl (32-36); Mean Corpuscular Hemoglobin 27.2 pg (26-34); Mean Corpuscular Volume 86.6 fl (80-100); Mean Platelet Volume 11.3 fl (7.4-10.4); Monocytes Percent Auto 7.8 % (2.6-8.5); Neutrophils Absolute Auto 10.1 K/mm3 (1.3-6.7); Neutrophils Percent Auto 78.9 % (45.5-73.1); Platelet Count Result 175 k/mm3 (150-375); Red Blood Count 4.04 M/mm3 (4.2-5.4); Red Cell Distribution Width 15.4 % (11.5-14.5); White Blood Count 12.7 K/mm3 (4.5-10.0)
[2023-02-06 17:16] LABS: Anion Gap 5 mmol/L (8-16); Blood Urea Nitrogen 29 mg/dL (7-17); Calcium 8.1 mg/dL (8.4-10.2); Carbon Dioxide 26 mmol/L (22-30); Chloride 99 mmol/L (98-107); Estimated CRCL calculation 41 ml/min; Estimated Glomerular Filt Rate > 60; Glucose 111 mg/dL (65-110); Potassium 4.2 mmol/L (3.4-5.0); Sodium 130 mmol/L (137-145)
--- NOTE | 2023-02-06 18:38 | PM.PNPUL ---
Progress Note: A&P Assessment and Plan (1) Respiratory syncytial virus (RSV) infection: Code(s): B33.8 - Other specified viral diseases Status: Acute Assessment and Plan: She has RSV type B on the respiratory pathogen panel sent Jan 27, returned Feb 04. Feb 05- IVIG for low IgG levels and RSV; Weaned off O2. This explains her prolonged coughing and wheezing. She had a couple months of symptoms before admission. I am not sure if she could have had it for a long time prior to coming in. The initial RSV swab in the ER was negative. (2) Asthma exacerbation: Code(s): J45.901 - Unspecified asthma with (acute) exacerbation Status: Acute Assessment and Plan: Patient carries a history of asthma maintained on Symbicort 160-4.5 at 2 puffs q.12 hours, albuterol nebulizers Q 6 p.r.n., albuterol inhalers 2 puffs Q 4 p.r.n., as a last in 2 sprays each nostril b.i.d. and fluticasone 50 mcg 2 sprays intranasal b.i.d. for sinus disease. Currently the patient is admitted 01/26/23 with worsening shortness of breath, congestion and wheezing over the last 7 days and had hypoxemia in the emergency room with increased work of breathing and was placed on BiPAP. COVID, influenza and RSV RT PCR studies negative. 01/27/23: Patient had increased work of breathing under full face mask BiPAP and at home she uses nasal pillows with CPAP and room air. She was changed to a nasal mask with BiPAP pressures 10/5 on room air and this was much more comfortable for her. When I saw her she was on BiPAP, mild respiratory distress, she was on room air with saturations 97%. She is awake alert and communicative. She said that she felt much better than she did yesterday and stated she was 50% back to normal. She has diffuse expiratory wheezing on exam. I have checked a D-dimer in this is positive. Plan: Patient with an asthma exacerbation but also with hypoxia. Her D-dimer is positive and I will order CT angiogram of the chest as well as upper and lower extremity Dopplers. Echocardiogram will also be ordered to assess LV function, RV function, pulmonary pressures as well as her mitral valve regurgitation. I will treat Solu-Medrol 60 mg IV q.6 hours, albuterol and ipratropium nebulizers q.4 hours. She was complaining of difficulty expectorating and I will place her on guaifenesin 600 mg p.o. q.12 hours as well as the Cornet flutter valve. She was empirically treated with ceftriaxone and doxycycline for possible pneumonia. Today is day 2 and will continue today. I will send a procalcitonin. Regarding her frequent exacerbations and/or infectious complaints I will send an HIV panel, serum immunoglobulins and IgG subclass. Aspergillus titers are pending. 01/28: Patient was off the BiPAP briefly last night. She was attempted on her home CPAP 14 but this did not provider enough air and she was placed back on the hospital BiPAP 10/5 and room air. Currently she is on a nasal mask with the hospital BiPAP breathing 15 times a minute pressures 10/5, tidal volumes 430-450 mL on room air with saturations 96%. Patient states that she is very tired as she has not slept. When she is sitting she is breathing fine but she has dyspnea on exertion. She has a dry cough. White blood cell count 12.6, creatinine 0.9. She is afebrile. She has as expiratory wheezes but they are improved today. Procalcitonin 0.1. Plan: I will decrease the Solu-Medrol to 20 mg IV q.6. I will continue albuterol and ipratropium nebulizers at q.4 hours. She has a white blood cell count today 12.6, no blood cultures were drawn. She is on day 2 ceftriaxone and doxycycline and I will continue today. 01/29: Patient was off the noninvasive ventilator yesterday during the day on room air with adequate saturation. Patient wore the BiPAP 10/5 last night. She had acute bronchospasm and anxiety in the middle of the night. The makayla
[2023-02-06] MEDS: MELATONIN 5 MG TABLET PO (20:46)
[2023-02-07] VITALS (16 sets, daily range): BP systolic 125–132; BP diastolic 52–62; PULSE 61–91; RESP 18–20; TEMP 36.2–36.4; O2SAT 92–96
[2023-02-07] MEDS: ALBUTEROL SULFATE NEB 2.5 MG/3 ML INH 5 MG INHALATION ×6 (00:35→20:46)
[2023-02-07] MEDS: IPRATROPIUM BR 0.02% INH SOLN 0.5 MG/2.5 ML VIAL INHALATION ×6 (00:35→20:46)
[2023-02-07] MEDS: methylPREDNISolone SOD SUCC 40 MG VIAL 20 MG IV PUSH ×2 (06:38→17:38)
[2023-02-07 08:45] LABS: Basophils Percent Auto 0.3 % (0.2-1.2); Eosinophils Percent Auto 0.1 % (0-4.4); Hematocrit 34.6 % (37.0-47.0); Immature Granulocyte Absolute 0.58 K/mm3 (0.00-0.031); Immature Granulocyte Percent A 4.9 % (0-0.5); Lymphocytes Absolute Auto 1.02 K/mm3 (0.9-3.2); Lymphocytes Percent Auto 8.7 % (18.3-44.2); Mean Corpuscular HGB Conc 31.8 g/dl (32-36); Mean Corpuscular Hemoglobin 27.5 pg (26-34); Mean Corpuscular Volume 86.5 fl (80-100); Mean Platelet Volume 11.4 fl (7.4-10.4); Monocytes Absolute Auto 0.6 K/mm3 (0.1-0.6); Monocytes Percent Auto 5.4 % (2.6-8.5); Neutrophils Absolute Auto 9.5 K/mm3 (1.3-6.7); Neutrophils Percent Auto 80.6 % (45.5-73.1); Platelet Count Result 152 k/mm3 (150-375); Red Cell Distribution Width 15.4 % (11.5-14.5); White Blood Count 11.8 K/mm3 (4.5-10.0)
[2023-02-07] MEDS: polyethylene glycoL 3350 17 GM POWD.PACK PO (08:49)
[2023-02-07] MEDS: METOPROLOL SUCCINATE EXT REL 50 MG TABCR PO (08:49)
[2023-02-07] MEDS: amLODIPine BESYLATE 5 MG TABLET 10 MG PO (08:49)
[2023-02-07] MEDS: ENOXAPARIN 40 MG/0.4 ML SYRINGE SUB-Q (08:49)
[2023-02-07] MEDS: SERTRALINE HCL 50 MG TABLET 150 MG PO (08:49)
[2023-02-07] MEDS: POTASSIUM CHLORIDE 20 MEQ ER TABLET 40 MEQ PO ×2 (08:49→17:37)
[2023-02-07] MEDS: SODIUM CHLORIDE 500 MG TABLET 2000 MG PO ×2 (08:49→17:37)
[2023-02-07] MEDS: dilTIAZem HCL CD 120 MG CAP.24HR PO (08:50)
[2023-02-07] MEDS: LOSARTAN POTASSIUM 50 MG TABLET PO (08:50)
[2023-02-07] MEDS: FLUTICASONE PROPIONATE 0.05% NA SPR 16 GM BTL (*BKC) 2 SPRAY NASAL ×2 (08:52→17:37)
[2023-02-07] MEDS: guaiFENesin 12 HR 600 MG TABCR PO ×2 (08:54→21:32)
[2023-02-07] MEDS: BENZONATATE 100 MG CAPSULE 200 MG PO ×2 (08:54→21:31)
[2023-02-07] MEDS: AZELASTINE HCL NASAL 0.1% 137 MCG/SPR 30 ML BTL 2 SPRAY NASAL ×2 (08:57→17:37)
[2023-02-07 09:06] LABS: Anion Gap 3 mmol/L (8-16); Blood Urea Nitrogen 25 mg/dL (7-17); Carbon Dioxide 23 mmol/L (22-30); Chloride 103 mmol/L (98-107); Estimated CRCL calculation 40 ml/min; Estimated Glomerular Filt Rate > 60; Glucose 102 mg/dL (65-110); Potassium 4.9 mmol/L (3.4-5.0); Sodium 129 mmol/L (137-145)
[2023-02-07 16:55] LABS: Hematocrit 37.6 % (37.0-47.0); Hemoglobin 12.5 g/dL (12.0-15.0); Mean Corpuscular HGB Conc 33.2 g/dl (32-36); Mean Corpuscular Hemoglobin 28.1 pg (26-34); Mean Corpuscular Volume 84.5 fl (80-100); Mean Platelet Volume 11.8 fl (7.4-10.4); Platelet Count Result 229 k/mm3 (150-375); Red Blood Count 4.45 M/mm3 (4.2-5.4); Red Cell Distribution Width 15.4 % (11.5-14.5); White Blood Count 18.8 K/mm3 (4.5-10.0)
--- NOTE | 2023-02-07 16:56 | PM.IMPN ---
Progress Note: A&P Assessment and Plan (1) Acute respiratory failure with hypoxia: Code(s): J96.01 - Acute respiratory failure with hypoxia Status: Acute (2) Asthma exacerbation: Code(s): J45.901 - Unspecified asthma with (acute) exacerbation Status: Acute (3) Bilateral lower extremity edema: Code(s): R60.0 - Localized edema Status: Acute (4) Diastolic dysfunction: Code(s): I51.89 - Other ill-defined heart diseases Status: Acute (5) Obstructive Sleep Apnea-Hypopnea Syndrome: Code(s): G47.33 - Obstructive sleep apnea (adult) (pediatric) Status: Acute (6) Benign essential hypertension: Onset Date: Unknown Code(s): I10 - Essential (primary) hypertension Status: Chronic (7) Hyperglobulinemia: Code(s): R77.1 - Abnormality of globulin Status: Acute (8) Hypoglobulinemia: Code(s): R77.1 - Abnormality of globulin Status: Acute Plan Acute respiratory failure, asthma exacerbation on IV ceftriaxone and oral doxycycline till 01/31, dc per Dr. Oseguera procalcitionin -ve and cxr clear dc BiPAP 01/31, to be switched to her home CPAP with settings monitored as per Pulmonary DuoNeb nebulizers as needed Decreased methylprednisolone to 20 mg q.12 hour IV per chemical test engineer recommendation WBC slowly trending down No significant wheezing, patient on nasal cannular RSV turns out po, starts IVIG per chemical test engineer and folder tier 02/04 Chronic diastolic dysfunction 2D echo with color Doppler reviewed which showed hyperdynamic preserved LV function estimated at greater than 70% Patient is on metoprolol succinate 50 mg p.o. daily on oral Bumex Strict input and output monitoring PT/OT evaluation ordered hold Bumex because of BUN trending up Hyponatremia and hypokalemia Likely secondary to Bumex Replace with sodium chloride and potassium chloride po Follow-up magnesium level Correct electrolyte abnormality accordingly Low IgG and high IgA level On no etiologies Consult heme oncologist for evaluation treatment Status post IVIG given on 02/04/2023 for positive RSV which she tolerated well Uncontrolled hypertension Started amlodipine 10 mg once and daily, losartan 50 mg once and daily 01/30 Started hydralazine 10 mg q.6 hours p.r.n. with parameters Blood pressure is better controlled Continue current medications Anxiety Patient has anxiety, worse because of medications, including bronchodilators methylprednisolone Start Xanax 0.5 mg t.i.d. p.r.n.po dc ambien 5 mg qhs prn Dysphagia Patient is on modified diet Evaluation by speech therapist daily Advance diet per speech evaluation Patient has a generalized weakness Consult PT OT out of school hours care worker for evaluation assisting placement DC planning to [facility] facility when approved by insurance and bed is available ? Patient seen and examined at bedside during my morning rounds ? Collaborated with patient's nurse at the bedside in detail and addressed all concerns ? Labs, electrolytes, radiology, investigations and test results reviewed ? Consult/Nursing/Ancilliary notes on the chart reviewed and appreciated ? Spoke with patient/family at the bedside and answered all the questions that they had Repeat labs in a.m. Electrolyte replacement as per protocol. Patient will be monitored very closely on the floor. Further recommendations as per the hospital course. Subjective Date/time seen: 02/07/23 16:56 Interval history: Patient slowly improved. Still feels weak and tired. Saturating at 90s on room air. Review of Systems Review of Systems: 14 systems were reviewed with pertinent positives and negatives per HPI. Except as documented in the HPI/progress notes, all other systems were reviewed and are negative. Exam Narrative: General: Ill-appearing, off BiPAP, on nasal cannular, weight: 77.5 kg. BMI: 33.4. HEENT: Normocephalic, atraumatic. PERRL,
[2023-02-07 17:15] LABS: Anion Gap 7 mmol/L (8-16); Blood Urea Nitrogen 27 mg/dL (7-17); Calcium 8.4 mg/dL (8.4-10.2); Carbon Dioxide 21 mmol/L (22-30); Chloride 100 mmol/L (98-107); Estimated CRCL calculation 36 ml/min; Estimated Glomerular Filt Rate 59; Glucose 112 mg/dL (65-110); Potassium 5.3 mmol/L (3.4-5.0); Sodium 128 mmol/L (137-145)
[2023-02-07 18:03] LABS: Band Neutrophils Percent 1 % (0-6); Lymphocytes Absolute Manual 0.94 K/mm3 (1.1-4.5); Monocytes Absolute Manual 0.94 K/mm3 (0.1-0.90); Monocytes Percent Manual 5 % (3-9); Neutrophils Absolute Manual 16.92 K/mm3 (1.7-7.2); Neutrophils Percent Manual 89 % (46-73); Nucleated Red Blood Cells 3 %; Platelet Estimate Adequate (Adequate); Schistocytes None Seen (NORMAL); Total Cells Counted 100
[2023-02-07 18:04] LABS: Anisocytosis 2+ (NORMAL)
[2023-02-07] MEDS: ALPRAZolam (*CRX) 0.5 MG TABLET PO (21:31)
[2023-02-07] MEDS: MELATONIN 5 MG TABLET PO (21:32)
[2023-02-08] VITALS (14 sets, daily range): BP systolic 125–131; BP diastolic 57–62; PULSE 63–84; RESP 18–20; TEMP 36.3–36.6; O2SAT 95–97
[2023-02-08] MEDS: ALBUTEROL SULFATE NEB 2.5 MG/3 ML INH 5 MG INHALATION ×5 (01:24→21:24)
[2023-02-08] MEDS: IPRATROPIUM BR 0.02% INH SOLN 0.5 MG/2.5 ML VIAL INHALATION ×5 (01:25→21:24)
[2023-02-08 06:27] LABS: Potassium 5.2 mmol/L (3.4-5.0)
[2023-02-08] MEDS: methylPREDNISolone SOD SUCC 40 MG VIAL 20 MG IV PUSH ×2 (06:54→17:43)
[2023-02-08] MEDS: guaiFENesin 12 HR 600 MG TABCR PO ×2 (09:23→20:12)
[2023-02-08] MEDS: SODIUM CHLORIDE 500 MG TABLET 2000 MG PO ×2 (09:24→17:39)
[2023-02-08] MEDS: SERTRALINE HCL 50 MG TABLET 150 MG PO (09:24)
[2023-02-08] MEDS: METOPROLOL SUCCINATE EXT REL 50 MG TABCR PO (09:24)
[2023-02-08] MEDS: FERROUS SULFATE 325 MG TABLET DR BY MOUTH (09:24)
[2023-02-08] MEDS: LOSARTAN POTASSIUM 50 MG TABLET PO (09:24)
[2023-02-08] MEDS: dilTIAZem HCL CD 120 MG CAP.24HR PO (09:24)
[2023-02-08] MEDS: polyethylene glycoL 3350 17 GM POWD.PACK PO (09:25)
[2023-02-08] MEDS: AZELASTINE HCL NASAL 0.1% 137 MCG/SPR 30 ML BTL 2 SPRAY NASAL ×2 (09:27→17:40)
[2023-02-08] MEDS: FLUTICASONE PROPIONATE 0.05% NA SPR 16 GM BTL (*BKC) 2 SPRAY NASAL ×2 (09:27→17:40)
[2023-02-08] MEDS: ENOXAPARIN 40 MG/0.4 ML SYRINGE SUB-Q (09:27)
[2023-02-08] MEDS: amLODIPine BESYLATE 5 MG TABLET 10 MG PO (10:21)
--- NOTE | 2023-02-08 16:56 | PCRCNOTE ---
Window of time for administration has passed. See next scheduled administration.
[2023-02-08 18:02] LABS: Basophils Absolute Auto 0.1 K/mm3 (0.0-0.1); Basophils Percent Auto 0.3 % (0.2-1.2); Hematocrit 35.8 % (37.0-47.0); Hemoglobin 11.6 g/dL (12.0-15.0); Immature Granulocyte Absolute 0.81 K/mm3 (0.00-0.031); Immature Granulocyte Percent A 4.3 % (0-0.5); Lymphocytes Absolute Auto 0.87 K/mm3 (0.9-3.2); Lymphocytes Percent Auto 4.7 % (18.3-44.2); Mean Corpuscular HGB Conc 32.4 g/dl (32-36); Mean Corpuscular Hemoglobin 27.5 pg (26-34); Mean Corpuscular Volume 84.8 fl (80-100); Mean Platelet Volume 12.2 fl (7.4-10.4); Monocytes Percent Auto 5.4 % (2.6-8.5); Neutrophils Absolute Auto 15.9 K/mm3 (1.3-6.7); Neutrophils Percent Auto 85.3 % (45.5-73.1); Nucleated Red Blood Cells Perc 0.1 % (0.0-0.2); Platelet Count Result 163 k/mm3 (150-375); Red Blood Count 4.22 M/mm3 (4.2-5.4); Red Cell Distribution Width 15.5 % (11.5-14.5); White Blood Count 18.7 K/mm3 (4.5-10.0)
--- NOTE | 2023-02-08 18:17 | PM.IMPN ---
Progress Note: A&P Assessment and Plan (1) Acute respiratory failure with hypoxia: Code(s): J96.01 - Acute respiratory failure with hypoxia Status: Acute (2) Asthma exacerbation: Code(s): J45.901 - Unspecified asthma with (acute) exacerbation Status: Acute (3) Bilateral lower extremity edema: Code(s): R60.0 - Localized edema Status: Acute (4) Diastolic dysfunction: Code(s): I51.89 - Other ill-defined heart diseases Status: Acute (5) Obstructive Sleep Apnea-Hypopnea Syndrome: Code(s): G47.33 - Obstructive sleep apnea (adult) (pediatric) Status: Acute (6) Benign essential hypertension: Onset Date: Unknown Code(s): I10 - Essential (primary) hypertension Status: Chronic (7) Hyperglobulinemia: Code(s): R77.1 - Abnormality of globulin Status: Acute (8) Hypoglobulinemia: Code(s): R77.1 - Abnormality of globulin Status: Acute Plan Acute respiratory failure, asthma exacerbation on IV ceftriaxone and oral doxycycline till 01/31, dc per Dr. 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 daily on oral Bumex Strict input and output monitoring PT/OT evaluation ordered hold Bumex because of BUN trending up Renal functions are slowly improving Hyponatremia and hypokalemia Likely secondary to Bumex Replace with sodium chloride and potassium chloride po Follow-up magnesium level Correct electrolyte abnormality accordingly For DC potassium chloride as calcium level was mildly elevated today Low IgG and high IgA level On no etiologies Consult heme oncologist for evaluation treatment Status post IVIG given on 02/04/2023 for positive RSV which she tolerated well Uncontrolled hypertension Started amlodipine 10 mg once and daily, losartan 50 mg once and daily 01/30 Started hydralazine 10 mg q.6 hours p.r.n. with parameters Blood pressure is better controlled Continue current medications Anxiety Patient has anxiety, worse because of medications, including bronchodilators methylprednisolone Start Xanax 0.5 mg t.i.d. p.r.n.po dc ambien 5 mg qhs prn Dysphagia Patient is on modified diet Evaluation by speech therapist daily Advance diet per speech evaluation Patient has a generalized weakness Consult PT OT animal care specialist for evaluation assisting placement [facility] planning to [facility] facility when approved by insurance and bed is available ? Patient seen and examined at bedside during my morning rounds ? Collaborated with patient's nurse at the bedside in detail and addressed all concerns ? Labs, electrolytes, radiology, investigations and test results reviewed ? Consult/Nursing/Ancilliary notes on the chart reviewed and appreciated ? Spoke with patient/family at the bedside and answered all the questions that they had Repeat labs in a.m. Electrolyte replacement as per protocol. Patient will be monitored very closely on the floor. Further recommendations as per the hospital course. Subjective Date/time seen: 02/08/23 18:17 Interval history: Patient is feeling little better. Wants to get out of the hospital. She had worsening leukocytosis and size switched IV steroids to oral. Review of Systems Review of Systems: 14 systems were reviewed with pertinent positives and negatives per HPI. Except as documented in the HPI/progress notes, all other systems were reviewed and are negativ
[2023-02-08 18:33] LABS: Anion Gap 5 mmol/L (8-16); Blood Urea Nitrogen 26 mg/dL (7-17); Calcium 8.1 mg/dL (8.4-10.2); Carbon Dioxide 20 mmol/L (22-30); Chloride 101 mmol/L (98-107); Estimated CRCL calculation 35 ml/min; Estimated Glomerular Filt Rate 59; Glucose 153 mg/dL (65-110); Potassium 4.8 mmol/L (3.4-5.0); Sodium 126 mmol/L (137-145)
[2023-02-08 18:45] LABS: Anisocytosis 1+ (NORMAL); Burr Cells 1+ (NORMAL); Platelet Estimate Adequate (Adequate); Schistocytes None Seen (NORMAL)
[2023-02-08] MEDS: BENZONATATE 100 MG CAPSULE 200 MG PO (20:12)
[2023-02-08] MEDS: ALPRAZolam (*CRX) 0.5 MG TABLET PO (20:12)
[2023-02-08] MEDS: MELATONIN 5 MG TABLET PO (20:12)
[2023-02-09] VITALS (13 sets, daily range): BP systolic 114–121; BP diastolic 54; PULSE 61–71; RESP 17–18; TEMP 36.1–36.4; O2SAT 92–96
--- NOTE | 2023-02-09 02:36 | PCRCNOTE ---
Window of time for administration has passed. See next scheduled administration.
[2023-02-09] MEDS: ALBUTEROL SULFATE NEB 2.5 MG/3 ML INH 5 MG INHALATION ×4 (04:10→15:00)
[2023-02-09] MEDS: IPRATROPIUM BR 0.02% INH SOLN 0.5 MG/2.5 ML VIAL INHALATION ×4 (04:11→15:00)
[2023-02-09] MEDS: SERTRALINE HCL 50 MG TABLET 150 MG PO (09:21)
[2023-02-09] MEDS: predniSONE 20 MG TABLET 40 MG PO (09:22)
[2023-02-09] MEDS: SODIUM CHLORIDE 500 MG TABLET 2000 MG PO (09:22)
[2023-02-09] MEDS: dilTIAZem HCL CD 120 MG CAP.24HR PO (09:22)
[2023-02-09] MEDS: LOSARTAN POTASSIUM 50 MG TABLET PO (09:22)
[2023-02-09] MEDS: amLODIPine BESYLATE 5 MG TABLET 10 MG PO (09:22)
[2023-02-09] MEDS: polyethylene glycoL 3350 17 GM POWD.PACK PO (09:23)
[2023-02-09] MEDS: ENOXAPARIN 40 MG/0.4 ML SYRINGE SUB-Q (09:23)
[2023-02-09] MEDS: METOPROLOL SUCCINATE EXT REL 50 MG TABCR PO (09:23)
[2023-02-09] MEDS: guaiFENesin 12 HR 600 MG TABCR PO (09:23)
[2023-02-09] MEDS: FLUTICASONE PROPIONATE 0.05% NA SPR 16 GM BTL (*BKC) 2 SPRAY NASAL (09:24)
[2023-02-09] MEDS: AZELASTINE HCL NASAL 0.1% 137 MCG/SPR 30 ML BTL 2 SPRAY NASAL (09:24)
[2023-02-09 12:28] LABS: Basophils Percent Auto 0.2 % (0.2-1.2); Hematocrit 35.7 % (37.0-47.0); Hemoglobin 11.5 g/dL (12.0-15.0); Immature Granulocyte Absolute 0.59 K/mm3 (0.00-0.031); Immature Granulocyte Percent A 3.9 % (0-0.5); Immature Platelet Fraction Pct 11.1 % (0.9-11.2); Lymphocytes Absolute Auto 1.39 K/mm3 (0.9-3.2); Lymphocytes Percent Auto 9.1 % (18.3-44.2); Mean Corpuscular HGB Conc 32.2 g/dl (32-36); Mean Corpuscular Hemoglobin 27.5 pg (26-34); Mean Corpuscular Volume 85.4 fl (80-100); Mean Platelet Volume 11.3 fl (7.4-10.4); Monocytes Absolute Auto 1.5 K/mm3 (0.1-0.6); Monocytes Percent Auto 10.1 % (2.6-8.5); Neutrophils Absolute Auto 11.8 K/mm3 (1.3-6.7); Neutrophils Percent Auto 76.7 % (45.5-73.1); Nucleated Red Blood Cells Perc 0.1 % (0.0-0.2); Platelet Count Result 135 k/mm3 (150-375); Red Blood Count 4.18 M/mm3 (4.2-5.4); Red Cell Distribution Width 15.7 % (11.5-14.5); White Blood Count 15.3 K/mm3 (4.5-10.0)
[2023-02-09 12:40] LABS: Anion Gap 2 mmol/L (8-16); Blood Urea Nitrogen 23 mg/dL (7-17); Calcium 8.4 mg/dL (8.4-10.2); Carbon Dioxide 26 mmol/L (22-30); Chloride 100 mmol/L (98-107); Estimated CRCL calculation 36 ml/min; Estimated Glomerular Filt Rate 59; Glucose 91 mg/dL (65-110); Potassium 4.5 mmol/L (3.4-5.0); Sodium 128 mmol/L (137-145)
--- NOTE | 2023-02-09 12:55 | PM.DS ---
DS: Admitting Diagnosis Discharge Date 02/09/2023: Admitting Diagnosis Acute respiratory failure with hypoxia Asthma exacerbation Obstructive sleep apnea-hypopnea syndrome DS: Discharge Diagnosis Discharge Diagnosis (1) Respiratory syncytial virus (RSV) infection: Code(s): B33.8 - Other specified viral diseases Status: Acute (2) Hyperglobulinemia: Code(s): R77.1 - Abnormality of globulin Status: Acute (3) Diastolic dysfunction: Code(s): I51.89 - Other ill-defined heart diseases Status: Acute (4) Acute respiratory failure with hypoxia: Code(s): J96.01 - Acute respiratory failure with hypoxia Status: Acute (5) Hypertension: Code(s): I10 - Essential (primary) hypertension Status: Acute (6) Pulmonary edema: Code(s): J81.1 - Chronic pulmonary edema Status: Acute (7) Obstructive Sleep Apnea-Hypopnea Syndrome: Code(s): G47.33 - Obstructive sleep apnea (adult) (pediatric) Status: Acute (8) EVELYN (obstructive sleep apnea): Code(s): G47.33 - Obstructive sleep apnea (adult) (pediatric) Status: Acute (9) Heart failure: Qualifiers: Heart failure type: diastolic Heart failure chronicity: chronic Qualified Code(s): I50.32 - Chronic diastolic (congestive) heart failure Code(s): I50.9 - Heart failure, unspecified Status: Acute (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: Code(s): J44.9 - Chronic obstructive pulmonary disease, unspecified Status: Acute (11) Depression: Qualifiers: Depression Type: dysthymia Qualified Code(s): F34.1 - Dysthymic disorder Code(s): F32.9 - Major depressive disorder, single episode, unspecified Status: Acute (12) Anxiety: Code(s): F41.9 - Anxiety disorder, unspecified Status: Acute (13) Benign essential hypertension: Onset Date: Unknown Code(s): I10 - Essential (primary) hypertension Status: Chronic (14) EVELYN on CPAP: Code(s): G47.33 - Obstructive sleep apnea (adult) (pediatric); Z99.89 - Dependence on other enabling machines and devices Status: Acute DS: Summary Hospital Course Reason for hospitalization: Patient admitted with shortness of breath Hospital Course: H&P: HPI History of Present Illness Date/Time: 01/26/23? 18:00 Chief Complaint: Shortness of breath. Narrative: This is a very pleasant 87-year-old female with history of mild persistent asthma, sleep apnea, anemia, osteoarthritis, and remote history of breast cancer who presented to the emergency department via private vehicle from home for evaluation of shortness of breath. The patient provides the following history. She has not been feeling well for approximately 1 week with productive cough, wheezing, and shortness of breath. She was recently prescribed prednisone but once that ran out she once again started wheezing. Today she was much more short of breath and in fact was so short of breath that she was becoming very anxious and she was having difficulty speaking more than 4 to 5 words at a time. She called Dr. Oseguera's office and was directed to the ED.? Her has not been sick.? She denies fever, chills, and sweats.? She has some chest tightness with the shortness of breath but no pleuritic pain. She denies nausea, vomiting, and diarrhea. She has chronic lower extremity edema which is unchanged.? No orthopnea or paroxysmal nocturnal dyspnea. She denies history of venous thromboembolism. Upon arrival her SpO2 was 85% on room air and she was very anxious. She was immediately placed on? BiPAP? and she received a nebulizer treatment, methylprednisolone, magnesium sulfate with some improvement. She tested negative for influenza and COVID. Chest x-ray showed bibasilar airspace opacities which could be atelectasis or pneumonia. WBC count was normal and proBNP was 438. She is being admitted in this setting for further treatment and evaluation. [facility]
--- NOTE | 2023-02-09 14:36 | PC.NURSE ---
report called to Maira COFFEY at [facility]. all d/c papers faxed over. ambulance on its way. cpap and home chemo meds being sent with patient.
== END 2023-02-09 16:11 | DRG 189 ==
LOC: ANHED 18:37 → ANHIMU 18:56 → ANH3MEDSUR 02-02 11:11
PROVIDERS: Hospitalist; Internal Medicine; Internal Medicine Pulmonary Disease; Nurse Practitioner Family; Physician Assistant; Admitting Provider General Practice; Emergency Provider Emergency Medicine; PCP Family Medicine; Visit Provider Family Medicine
DX: J96.01 Acute respiratory failure with hypoxia (principal); J45.901 Unspecified asthma with (acute) exacerbation; E87.1 Hypo-osmolality and hyponatremia; J22 Unspecified acute lower respiratory infection; B97.4 Respiratory syncytial virus as the cause of diseases classified elsewhere; T50.1X5A Adverse effect of loop [high-ceiling] diuretics, initial encounter; G47.33 Obstructive sleep apnea (adult) (pediatric); D50.9 Iron deficiency anemia, unspecified; J32.9 Chronic sinusitis, unspecified; R77.1 Abnormality of globulin; F41.9 Anxiety disorder, unspecified; I11.9 Hypertensive heart disease without heart failure; E87.6 Hypokalemia; I34.0 Nonrheumatic mitral (valve) insufficiency; R60.0 Localized edema; R13.10 Dysphagia, unspecified; Z85.3 Personal history of malignant neoplasm of breast; Z87.891 Personal history of nicotine dependence
CPT/HCPCS: 36415; 36600; 70486; 71045; 71046; 71275; 80048; 80053; 82375; 82607; 82728; 82746; 82784; 82785; 82787; 82805; 83050; 83540; 83550; 83735; 83880; 84100; 84132; 84145; 85025; 85055; 85380; 86334; 86703; 87633; 87634; 87636; 87637; 92611; 93005; 93306; 93970; 94003; 94640; 94667; 96365; 96372; 96375; 96376; 97110; 97116; 97161; 97166; 97530; 97535; 99285; A9270; G0378; G0432; J0696; J1459; J1650; J2920; J2930; J3475; J3480; J7050; J7120; J7512; Q9967

== ENCOUNTER 2023-03-02 15:56 | Inpatient (IN) | payer MEDICARE, OTHER, SELFPAY ==
--- NOTE | ~2023-03-02 | US_ITS ---
EXAMINATION: US venous doppler [facility] DATE: 03/04/2023 11:28 INDICATION: Acute pulmonary embolism TECHNIQUE: Grayscale ultrasound images without and with compression and Doppler ultrasound images of the bilateral lower extremity veins were obtained. COMPARISON: None. FINDINGS: The visualized portions of right common femoral vein, profunda (deep) femoral vein, femoral vein, pop liteal vein, posterior tibial veins, gastrocnemius vein and greater saphenous vein outflow are patent . Noncompressible deep venous thrombosis in the paired right peroneal veins. Additional noncompressible deep venous thrombosis in the left popliteal vein and the paired left post erior tibial and peroneal veins. The visualized portions of left common femoral vein, profunda femora l vein, femoral vein, gastrocnemius vein and greater saphenous vein outflow are patent. IMPRESSION: 1. Bilateral [id number] deep venous thrombosis. Reviewed, dictated and finalized at location A. INUUM OF CARE MANAGER IMPRESSION: 1. Bilateral [id number] deep venous thrombosis.
--- NOTE | ~2023-03-02 | CT_ITS ---
Clinical Indication: Pulmonary embolus CT Scan of the Chest with Contrast: Technique: Contiguous sections were acquired throughout the chest after intravenous administration of 100 cc of Omnipaque 350. Dose reduction technique was used on this scan by utilizing automated expos ure control and iterative reconstruction technique. The dose-length product (DLP) was 274.19 mGy-cm. COMPARISON: 01/27/2023 Findings: There is no evidence of any significant mediastinal, hilar or axillary lymphadenopathy. Pulmonary emb olus noted in segmental branches in the right lower lobe. There is additional segmental level pulmona ry embolus and branches in the left upper lobe/lingula. No large central pulmonary embolus identified . There is no evidence of aortic dissection or aneurysm. No pericardial effusion. Small right pleural effusion present. There is minimal left pleural effusion. There is mild bibasilar ectatic change. Images through the upper abdomen reveal no abnormalities. Impression: Several segmental level pulmonary emboli, most notably in the right lower lobe and left upper lobe/li ngula. Small right pleural effusion and minimal left pleural effusion. Case discussed with Dr. Gould at the time of this reading. Reviewed, dictated and finalized at location . [place] CLIENT SOLUTIONS ANALYST Impression: Several segmental level pulmonary emboli, most notably in the right lower lobe and left upper lobe/lingula. Small right pleural effusion and minimal left pleural effusion. Case discussed with Dr. Gould at the time of this reading.
--- NOTE | ~2023-03-02 | XR_ITS ---
EXAMINATION: XR chest 1V portable INDICATION: Shortness of breath TECHNIQUE: Portable AP chest at 2018 hours COMPARISON: 02/08/2023 FINDINGS: The lungs are free of acute opacities. No pleural effusion or pneumothorax. The cardiomedia stinal silhouette is normal. There are surgical changes of right mastectomy and right axillary lymph node dissection. IMPRESSION: 1. No acute cardiopulmonary abnormality. Reviewed, dictated and finalized at location F. TORAL OFFICER
--- NOTE | ~2023-03-02 | XR_ITS ---
EXAMINATION: XR chest 1V portable DATE: 03/05/2023 10:19 INDICATION: Pleural effusion. TECHNIQUE: A single frontal view of the chest was obtained. COMPARISON: Chest single view 03/02/2023, chest CT 03/03/2023 FINDINGS: The chest demonstrates clear lungs without pneumonia, pleural effusion, or pneumothorax. Th e heart size is normal. There are changes of right mastectomy. IMPRESSION: 1. No acute cardiopulmonary disease. Reviewed, dictated and finalized at location E. ER CUTTER
[2023-03-02 16:05] VITALS: BP 113/53; PULSE 93; RESP 18; TEMP 36.6; O2SAT 96
--- NOTE | 2023-03-02 18:33 | ECG_ITS ---
Measurements Intervals [place] Rate: 80 P: 62 VA: 150 QRS: -39 QRSD: 83 T: 50 QT: 379 QTc: 439 Interpretive Statements SINUS RHYTHM LEFT AXIS DEVIATION DELAYED PRECORDIAL R/S TRANSITION BASELINE ARTIFACT- I, III, AVR, AVL, V1-V3 BORDERLINE ECG COMPARED TO ECG 01/31/2023 04:11:04 LEFT-AXIS DEVIATION NOW PRESENT Electronically Signed On 03-02-2023 19:29:33 PATTERN HAND by Madi [place] D.O.
--- NOTE | 2023-03-02 18:33 | ED.GENADULT ---
HPI - General Adult General Chief complaint: Shortness of Breath/Dyspnea Stated complaint: SOB Time Seen by Provider: 03/02/23 18:33 Source: patient Mode of arrival: ambulatory Limitations: no limitations History of Present Illness HPI narrative: This is a 87-year-old female with PMH heart failure, iron deficiency anemia, who presents to the ED with chief complaint of dyspnea and cough for 1 week. Reports that she was admitted to the hospital last month for several weeks for RSV and pneumonia. She has been home for a week after being in rehab. Denies fevers. Endorses increased leg swelling. States that she gets short of breath every time she to exert herself. Has occasional chest heaviness but no pain. Reports taking bumetanide for leg swelling. Doing nebulizer treatments multiple times per day with last at 2pm Related Data Home Medications Medication Instructions Recorded Confirmed diltiazem HCl 120 mg 120 mg PO DAILY 02/25/22 03/03/23 tablet,extended release 24 hr (Cardizem LA) metoprolol succinate 50 mg 50 mg PO DAILY 07/18/22 03/03/23 tablet,extended release 24 hr azelastine 137 mcg (0.1 %) nasal 2 spray intranasal BID PRN Allergy 01/26/23 03/03/23 spray aerosol Symptoms bumetanide 2 mg tablet 1 mg PO DAILY 01/26/23 03/03/23 ferrous sulfate 324 mg (65 mg 324 mg PO EVERY OTHER DAY 01/26/23 03/03/23 iron) tablet,delayed release exemestane 25 mg tablet 25 mg PO DAILY 01/27/23 03/03/23 melatonin 5 mg tablet 5 mg PO PRN PRN INSOMNIA 03/03/23 03/03/23 Allergies Allergy/AdvReac Type Severity Reaction Status Date / Time lisinopril Allergy Intermediate Hives Verified 01/01/23 11:11 codeine Allergy Unknown Unknown- Verified 01/01/23 11:11 UNABLE TO RECAL Review of Systems Review of Systems: All systems as dictated in [facility] Past Medical History Medical History Adenomatous colon polyp Degenerative arthritis of knee, bilateral Diastolic dysfunction Diastolic dysfunction Estrogen receptor positive status (ER+) Iron deficiency anemia due to chronic blood loss 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, estrogen receptor positive Osteoarthritis of right knee (Unknown) Port-A-Cath in place (~2018) Surgical History Surgical History History of hernia repair History of right knee surgery History of right mastectomy Family History Family History Father Family history of diabetes mellitus in first degree relative Family history of coronary artery disease Patient's father is in good health Mother Family history of lung cancer Sibling Family history of lung cancer Family history of malignant neoplasm of brain, Onset Age: 60 Other Diabetes mellitus Family history of cardiovascular disease Family history of kidney disease Social History Social History Social History: Surrogate medical decision maker: Urbano Bailey, son. Code status: Full code. Smoking packs per day: 0.5 Smoking cigarettes per day: 10.0 Years smoked: 20 Smoking pack-years: 10.00 Smoking status: Never smoker Second hand tobacco smoke exposure: No Additional smoking assessment comments: STATES <PK/DAY/3YRS Alcohol intake: former Drinks per week: 1 Alcohol use details: DRINK Substance use: former Substance use type: does not use Do You Feel Safe in your Home?: Yes Lack of Transportation: No Lack of Food: Never True Current Housing: I Have Housing Concerned About Future Housing: No Difficulty Paying Gas/Electric Bills: No Difficulty Paying for Meds: No Currently Unemployed: No Education: High School Diploma/GED Difficulty w/ Childcare or Family Care: No Living arrangements: with family Additional living arrangements comments: LIVES WITH SPOUS
[2023-03-02 18:56] LABS: Basophils Absolute Auto 0.1 K/mm3 (0.0-0.1); Basophils Percent Auto 0.7 % (0.2-1.2); Eosinophils Percent Auto 0.3 % (0-4.4); Hematocrit 27.7 % (37.0-47.0); Hemoglobin 9.2 g/dL (12.0-15.0); Immature Granulocyte Absolute 0.14 K/mm3 (0.00-0.031); Lymphocytes Absolute Auto 1.28 K/mm3 (0.9-3.2); Lymphocytes Percent Auto 18.5 % (18.3-44.2); Mean Corpuscular HGB Conc 33.2 g/dl (32-36); Mean Corpuscular Hemoglobin 27.8 pg (26-34); Mean Corpuscular Volume 83.7 fl (80-100); Mean Platelet Volume 9.6 fl (7.4-10.4); Monocytes Absolute Auto 0.7 K/mm3 (0.1-0.6); Monocytes Percent Auto 9.8 % (2.6-8.5); Neutrophils Absolute Auto 4.7 K/mm3 (1.3-6.7); Neutrophils Percent Auto 68.7 % (45.5-73.1); Platelet Count Result 416 k/mm3 (150-375); Red Blood Count 3.31 M/mm3 (4.2-5.4); Red Cell Distribution Width 17.4 % (11.5-14.5); White Blood Count 6.9 K/mm3 (4.5-10.0)
[2023-03-02 19:04] LABS: INR 1.1; Prothrombin Time 14.2 Seconds (11.1-14.7)
[2023-03-02 19:05] LABS: Partial Thromboplastin Time 32.2 SECONDS (22.3-36.8)
[2023-03-02 19:06] LABS: Alanine Aminotransferase 13 U/L (6-35); Albumin Level 3.1 g/dL (3.5-5.1); Alkaline Phosphatase 71 U/L (38-126); Anion Gap 9 mmol/L (8-16); Aspartate Amino Transferase 21 U/L (14-36); Bilirubin,Total 0.4 mg/dL (0.2-1.3); Blood Urea Nitrogen 11 mg/dL (7-17); Calcium 8.6 mg/dL (8.4-10.2); Carbon Dioxide 25 mmol/L (22-30); Chloride 91 mmol/L (98-107); Estimated Glomerular Filt Rate > 60; Glucose 102 mg/dL (65-110); Magnesium 1.8 mg/dL (1.6-2.3); Potassium 3.5 mmol/L (3.4-5.0); Sodium 125 mmol/L (137-145)
[2023-03-02 19:12] VITALS: BP 132/58; PULSE 76; RESP 15; O2SAT 92
[2023-03-02 19:14] LABS: NT Pro B Type Natriuretic Pept 330 pg/mL (19.9-100)
[2023-03-02 19:19] VITALS: PULSE 70; RESP 18
[2023-03-02] MEDS: IPRATROPIUM BR 0.02% INH SOLN 0.5 MG/2.5 ML VIAL 2 MG INHALATION (19:19)
[2023-03-02] MEDS: ALBUTEROL SULFATE NEB 2.5 MG/3 ML INH 10 MG INHALATION (19:19)
--- NOTE | 2023-03-02 19:24 | ED.SOB ---
HPI - SOB/Dyspnea General Chief Complaint: Shortness of Breath/Dyspnea Stated Complaint: SOB Time Seen by Provider: 03/02/23 18:33 Source: patient Mode of arrival: ambulatory Limitations: no limitations History of Present Illness HPI Narrative: 87 YEARS OLD WHITE FEMALE CAME FROM HOME WITH SHORTNESS OF BREATH FOR THE LAST 3 WEEKS, WAS ADMITTED TO OUR [facility]OS[facility] FOR 2 WEEKS, DISCHARGED ON February REHAB, 1 WEEK LATER DISCHARGED HOME,. PATIENT IS TELLING ME THAT HER SHORTNESS OF BREATH IS NOT IMPROVING, SHE BEEN ON NEBULIZER TREATMENTS SYMBICORT AND ALBUTEROL RESCUE INHALER WITHOUT IMPROVEMENT, COMPLAINING OF NO ENERGY, FEELING TIRED AND WEAK ALL OVER, DOES NOT EAT, UNABLE TO TAKE CARE OF HERSELF. PROBABLY NEED REHAB DR. HORTON CALLED THE ED AND TOLD ME THAT PATIENT HAD RSV LAST HOSPITALIZATION, AND THE HOME NURSE NOTED THAT THE PATIENT'S SATURATION IS DROPPING AND SHE BEEN COUGHING MORE THAN USUAL. WITH INCREASED LEG EDEMA. PATIENT IS NOT ON OXYGEN Related Data Home Medications Medication Instructions Recorded Confirmed diltiazem HCl 120 mg 120 mg PO DAILY 02/25/22 02/09/23 tablet,extended release 24 hr (Cardizem LA) metoprolol succinate 50 mg 50 mg PO DAILY 07/18/22 02/09/23 tablet,extended release 24 hr azelastine 137 mcg (0.1 %) nasal 2 spray intranasal BID PRN Allergy 01/26/23 02/09/23 spray aerosol Symptoms bumetanide 2 mg tablet 2 mg PO DAILY 01/26/23 02/09/23 ferrous sulfate 324 mg (65 mg 324 mg PO EVERY OTHER DAY 01/26/23 02/09/23 iron) tablet,delayed release exemestane 25 mg tablet 25 mg PO DAILY 01/27/23 02/09/23 Allergies Allergy/AdvReac Type Severity Reaction Status Date / Time lisinopril Allergy Intermediate Hives Verified 01/01/23 11:11 codeine Allergy Unknown Unknown- Verified 01/01/23 11:11 UNABLE TO RECAL Review of Systems Review of Systems: All systems reviewed & are unremarkable except as noted in HPI and below PMFSH Past Medical History Medical History Adenomatous colon polyp Degenerative arthritis of knee, bilateral Diastolic dysfunction Diastolic dysfunction Estrogen receptor positive status (ER+) Iron deficiency anemia due to chronic blood loss 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, estrogen receptor positive Osteoarthritis of right knee (Unknown) Port-A-Cath in place (~2018) Surgical History Surgical History History of hernia repair History of right knee surgery History of right mastectomy Family History Family History Father Family history of diabetes mellitus in first degree relative Family history of coronary artery disease Patient's father is in good health Mother Family history of lung cancer Sibling Family history of lung cancer Family history of malignant neoplasm of brain, Onset Age: 60 Other Diabetes mellitus Family history of cardiovascular disease Family history of kidney disease Social History Social History Social History: Surrogate medical decision maker: Urbano Bailey, connie. Code status: Full code. Smoking packs per day: 0.5 Smoking cigarettes per day: 10.0 Years smoked: 20 Smoking pack-years: 10.00 Smoking status: Former smoker Second hand tobacco smoke exposure: No Additional smoking assessment comments: STATES <PK/DAY/3YRS Alcohol intake: current Drinks per week: 4 Alcohol use details: DRINK Substance use: never Substance use type: does not use Do You Feel Safe in your Home?: Yes Lack of Transportation: No Lack of Food: Never True Current Housing: I Have Housing Concerned About Future Housing: No Difficulty Paying Gas/Electric Bills: No Difficulty Paying for Meds: No Currently Unemployed: Decline to Answer Education: Decline to Answer Difficulty w/ Childcar
[2023-03-02 19:28] LABS: Alveolar/Arterial O2 Gradient 69.9 mmHg; Base Excess ABG 1.8 mEq/l (+/-2.0); Fractional Inspired Oxygen 36 %; HCO3 ABG 24.1 mEq/l (22.0-26.0); Oxygen Content ABG 13.5 %vol (16.0-22.0); Oxygen Saturation ABG 99.2 % (95.0-100.0); Oxyhemoglobin 97.7 % THb (90.0-100.0); PCO2 ABG 29.9 mmHg (35.0-45.0); PO2 ABG 152.1 mmHg (80.0-100.0); PO2 FiO2 Ratio Arterial Blood 4.23 %; Total Hemoglobin 9.6 g/dL (12.0-18.0)
[2023-03-02 19:30] LABS: pH ABG 7.525 (7.350-7.450)
[2023-03-02 19:31] LABS: Device OTHER DEVICE; Site Drawn LEFT BRACHIAL
[2023-03-02 20:36] VITALS: BP 114/44; PULSE 80; RESP 15; O2SAT 97
[2023-03-02 20:42] LABS: Influenza A QL RT-PCR Negative (Negative); Influenza B QL RT-PCR Negative (Negative); RSV RNA, RT-PCR Negative (Negative); SARS-CoV-2 RNA PCR Negative (Negative)
[2023-03-02 21:13] VITALS: O2SAT 96
[2023-03-02] MEDS: methylPREDNISolone SOD SUCC 125 MG VIAL IV PUSH (21:18)
[2023-03-02 21:24] LABS: Appearance Urine Clear (Clear); Bacteria Urine None Seen /hpf; Bilirubin Urine Negative (Negative); Blood Urine Negative (Negative); Color Urine Yellow (Yellow); Glucose Urine UA Negative (Negative); Ketones Urine Trace mg/dL (Negative); Leukocyte Esterase Ur 1+ LEU/UL (Negative); Need Manual Microscopic Reviewed; Nitrate Urine Negative (Negative); Non Pathogenic Casts 0-2; Protein Urine Negative (Negative); RBC Urine 0-2 /hpf (0-2); Specific Grav Ur 1.012 (1.001-1.035); Squamous Epithelial Cell Urine None seen /hpf (Few); Urobilinogen Urine 0.2 mg/dL (<2.0); WBC Urine 0-5 /hpf; pH Urine 5.5 (5.0-9.0)
[2023-03-02 21:36] LABS: Troponin I < 0.012 ng/mL (0.000-0.034)
[2023-03-02 21:36] LABS: Add Urine Microscopic? YES
--- NOTE | 2023-03-02 21:49 | PM.IMHP ---
H&P: HPI History of Present Illness Date/Time: 03/02/23 21:49 Chief Complaint: sob Narrative: this is an 87-year-old female with past medical history significant for COPD/asthma, diastolic dysfunction, breast CA. patient had been admitted recently and discharged to rehabilitation initially patient came in the hospital with RSV and respiratory failure. Has been released for rehabilitation and comes back to the emergency room due to shortness of breath, generalized weakness, worsening bilateral lower extremity edema. Patient has had poor appetite also persistent cough, denies any chest pain, denies syncope or near syncope no fevers no rigors no chills. EXAMINATION: XR chest 1V portable INDICATION: Shortness of breath TECHNIQUE: Portable AP chest at 2018 hours COMPARISON: 02/08/2023 FINDINGS: The lungs are free of acute opacities. No pleural effusion or pneumothorax. The cardiomediastinal silhouette is normal. There are surgical changes of right mastectomy and right axillary lymph node dissection. IMPRESSION: 1. No acute cardiopulmonary abnormality. Review of Systems Review of Systems: sob, generalized weakness, worsening b/l le swelling Constitutional: Constitutional: Denies chills, Reports fatigue, Denies fever(s), Reports poor appetite and Reports weakness Eyes: Eyes: Denies change in vision ENT: Denies dysphagia and Denies odynophagia Cardiovascular: Cardiovascular: Denies chest pain, Denies radiating jaw, neck or arm pain and Denies palpitations Respiratory: Respiratory: Reports cough, Reports dyspnea and Reports wheezing Gastrointestinal: Gastrointestinal: Denies abdominal pain, Denies dyspepsia, Denies heartburn, Denies nausea and Denies vomiting Genitourinary: Genitourinary: Denies dysuria Musculoskeletal: Musculoskeletal: Reports muscle weakness Integumentary/Breasts: Skin/Breast: Denies rash Neurologic: Denies focal weakness and Denies Sensory deficit (Neuro) Psychiatric: Psychiatric: Reports no additional psychiatric complaints and Reports as per HPI Endocrine: Endocrine: Denies cold intolerance, Denies fatigue, Denies flushing, Denies heat intolerance, Denies polyphagia, Denies polydipsia and Denies palpitations Hematologic/Lymphatic: Hematologic/Lymphatic: Reports no additional hematologic/lymphatic complaints and Reports as per HPI Allergic/Immunologic: Allergic/Immunologic: Reports no additional allergic/immunologic complaints and Reports as per HPI [facility] Past Medical History Medical History Adenomatous colon polyp Degenerative arthritis of knee, bilateral Diastolic dysfunction Diastolic dysfunction Estrogen receptor positive status (ER+) Iron deficiency anemia due to chronic blood loss 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, estrogen receptor positive Osteoarthritis of right knee (Unknown) Port-A-Cath in place (~2018) Surgical History Surgical History History of hernia repair History of right knee surgery History of right mastectomy Family History Family History Father Family history of diabetes mellitus in first degree relative Family history of coronary artery disease Patient's father is in good health Mother Family history of lung cancer Sibling Family history of lung cancer Family history of malignant neoplasm of brain, Onset Age: 60 Other Diabetes mellitus Family history of cardiovascular disease Family history of kidney disease Social History Social History Social History: Surrogate medical decision maker: Urbano Bailey, son. Code status: Full code. Smoking packs per day: 0.5 Smoking cigarettes per day: 10.0 Years smoked: 20 Smoking pack-years: 10.00 Smoking status: Never smoker Second hand tobacco smoke exposu
[2023-03-02 23:00] VITALS: BP 136/44; PULSE 76; RESP 16; O2SAT 100
[2023-03-03] VITALS (15 sets, daily range): BP systolic 113–126; BP diastolic 43–71; PULSE 67–95; RESP 16–32; TEMP 36.4–36.7; O2SAT 91–99; BMI 27.8
--- NOTE | 2023-03-03 | ECHO_ITS ---
Patient Info Name: Tatianna Bailey Age: 87 years : 1935 Gender: Female Ht: 64 in Wt: 162 lbs BSA: 1.84 m2 HR: 72 bpm BP: 118 / 71 mmHg Technical Quality: Fair Exam Date: 03/03/2023 2:17 PM Exam Location: Echo Lab Patient Status: Inpatient Admit Date: 03/03/2023 Staff Ordering Physician: Lesia Fuentes APRN Attending Provider: Ellen Gutierrez MD Referring Physician: Alfredo TANG; Exam Type: CA echo dop color flow w con Study Info Indications - pulmonary embolisim Contrast/Agitated Saline Contrast/Ag. Saline: Definity Amount: 1.00 ml Existing IV Access: Yes IV Access Condition: patent with no signs of infiltration Summary 1. Left ventricular chamber dimension is normal. 2. Left ventricular systolic function is normal, estimated at 65-70%. 3. The left ventricular diastolic function is grade I diastolic dysfunction. 4. E/e' 24 is elevated. 5. Left atrial chamber dimension is mildly enlarged. 6. There is mild aortic valve sclerosis. 7. The mitral valve has moderately calcified annulus. 8. There is trace tricuspid valve regurgitation. Left Ventricle E/e' 24 is elevated. Left ventricular chamber dimension is normal. Left ventricular systolic function is normal, estimated at 65-70%. The left ventricular diastolic function is grade I diastolic dysfunction. Right Ventricle Right ventricular chamber dimension is normal. Right ventricular systolic function is normal and with normal TAPSE 1.9 cm. Left Atria Left atrial chamber dimension is mildly enlarged. Right Atria Right atrial chamber dimension is normal. Aortic Valve The aortic valve is trileaflet. There is mild aortic valve sclerosis. There is no aortic valve stenosis. There is no aortic valve regurgitation. Pulmonic Valve There is no pulmonic regurgitation. Mitral Valve The mitral valve has moderately calcified annulus. There is no mitral valve stenosis. There is no mitral valve regurgitation. Tricuspid Valve There is trace tricuspid valve regurgitation. RVSP is not measured due to an inadequate TR jet. Pericardium/Pleural There is no pericardial effusion. Inferior Vena Cava Normal inferior vena cava with >50% collapse upon inspiration consistent with normal right atrial pressure, 5 mmHg. Aorta The aortic root size at the sinus of Valsalva is normal. Left Ventricular Outflow Tract Name Value Normal LVOT 2D LVOT Diameter 2.11 cm LVOT Doppler LVOT Peak Gradient 5 mmHg LVOT Mean Gradient 3 mmHg LVOT VTI 26.28 cm LVOT VTI/AV VTI Ratio 0.95 LVOT Stroke Volume 91.90 ml LVOT CO 6.47 l/min LVOT CI 3.51 L/min/m2 Mitral Valve Name Value Normal MV Doppler MV Peak Gradient 6 mmHg
--- NOTE | 2023-03-03 00:10 | ADMGEN ---
This patient, Tatianna Bailey, was admitted to 3 Med Surg Room 329-01. Patient/family oriented to hospital policies and general routines including ID bracelet, bed and alarms, visiting hours, pain management, procedures, bathroom and other care routines, personal items, smoking policy, room service/diet, and visiting hours. Information on how to activate the Rapid Response Team has been discussed. Patient/Family are encouraged to report perceived risks to care and to ask questions if they do not understand what they are told or what they should do.
[2023-03-03] MEDS: methylPREDNISolone SOD SUCC 125 MG VIAL 60 MG IV PUSH ×2 (05:14→11:48)
[2023-03-03] MEDS: LOSARTAN POTASSIUM 50 MG TABLET PO (08:02)
[2023-03-03] MEDS: SERTRALINE HCL 50 MG TABLET 150 MG PO (08:02)
[2023-03-03] MEDS: METOPROLOL SUCCINATE EXT REL 50 MG TABCR PO (08:03)
[2023-03-03] MEDS: amLODIPine BESYLATE 5 MG TABLET 10 MG PO (08:03)
[2023-03-03] MEDS: FLUTICASONE PROPIONATE 0.05% NA SPR 16 GM BTL (*BKC) 2 SPRAY NASAL ×2 (08:05→20:39)
[2023-03-03 08:12] LABS: Hematocrit 26.9 % (37.0-47.0); Hemoglobin 8.7 g/dL (12.0-15.0); Mean Corpuscular HGB Conc 32.3 g/dl (32-36); Mean Corpuscular Hemoglobin 27.7 pg (26-34); Mean Corpuscular Volume 85.7 fl (80-100); Mean Platelet Volume 9.6 fl (7.4-10.4); Platelet Count Result 398 k/mm3 (150-375); Red Blood Count 3.14 M/mm3 (4.2-5.4); Red Cell Distribution Width 17.2 % (11.5-14.5); White Blood Count 5.3 K/mm3 (4.5-10.0)
[2023-03-03 08:30] LABS: Alanine Aminotransferase 12 U/L (6-35); Albumin Level 2.9 g/dL (3.5-5.1); Alkaline Phosphatase 62 U/L (38-126); Anion Gap 7 mmol/L (8-16); Aspartate Amino Transferase 20 U/L (14-36); Bilirubin,Total 0.4 mg/dL (0.2-1.3); Blood Urea Nitrogen 11 mg/dL (7-17); Calcium 8.5 mg/dL (8.4-10.2); Carbon Dioxide 26 mmol/L (22-30); Chloride 96 mmol/L (98-107); Estimated CRCL calculation 49 ml/min; Estimated Glomerular Filt Rate > 60; Glucose 162 mg/dL (65-110); Potassium 4.5 mmol/L (3.4-5.0); Sodium 129 mmol/L (137-145)
[2023-03-03] MEDS: IPRATROPIUM 0.5 MG/ALBUTEROL SULFATE 2.5 MG AMPUL.NEB 3 ML INHALATION ×3 (08:42→20:51)
[2023-03-03] MEDS: dilTIAZem HCL CD 120 MG CAP.24HR PO (09:11)
--- NOTE | 2023-03-03 10:31 | PM.CNPUL ---
Assessment and Plan Assessment and plan (1) Acute and chronic respiratory failure with hypoxia: Code(s): J96.21 - Acute and chronic respiratory failure with hypoxia Status: Acute Assessment and Plan: This 87-year-old female with a history of asthma chronically on maintenance bronchodilators, obstructive sleep apnea on CPAP recently hospitalized and treated for asthma exacerbation related to RSV type B viral infection. Patient has not fully recovered from asthma exacerbation and viral infection. She presented with a generalized weakness cough and reportedly low oxygen at home. Chest x-ray showed no new infiltrates. She has no leukocytosis and on physical exam she has no wheezing. She has chronic lower extremity edema which is not new. On blood gases she had respiratory alkalosis. Currently she has been on IV steroids presumably for asthma exacerbation and also supplemental oxygen. Plan: Cause of hypoxemia and respiratory alkalosis unclear at this point. As stated she has no evidence of wheezing on physical exam. Will proceed with a CT PA. continue with current regimen for now. (2) Acute exacerbation of COPD with asthma: Code(s): J44.1 - Chronic obstructive pulmonary disease with (acute) exacerbation; J45.901 - Unspecified asthma with (acute) exacerbation Status: Acute (3) Asthma exacerbation: Code(s): J45.901 - Unspecified asthma with (acute) exacerbation Status: Acute (4) Acute respiratory failure with hypoxia: Code(s): J96.01 - Acute respiratory failure with hypoxia Status: Acute (5) Diastolic dysfunction: Code(s): I51.89 - Other ill-defined heart diseases Status: Acute (6) EVELYN (obstructive sleep apnea): Code(s): G47.33 - Obstructive sleep apnea (adult) (pediatric) Status: Acute History of Present Illness History of Present Illness Consult date: 03/03/23 Chief complaint: COPD Exacerbation,Acute Hypoxic Resp Failure Narrative: n 87-year-old female patient, with a medical history of asthma managed with maintenance bronchodilators and obstructive sleep apnea managed with CPAP, experienced a decline in her health about a month ago. She presented with a cough and shortness of breath, leading to her hospitalization. During her hospital stay, she was diagnosed with an RSV type B infection and treated for an asthma exacerbation with IV steroids, supplemental oxygen, antibiotics, and IV IG following consultation with [facility]. After her hospital stay, she was discharged to a rehabilitation facility and returned home a few days before her current admission. The patient reports ongoing generalized weakness, intermittent bouts of cough, and shortness of breath. She denies experiencing fever, chills, hemoptysis, chest pain, or palpitations. She has chronic lower extremity edema and has noted her oxygen levels to be in the mid-80% range when measured. A chest x-ray revealed no new infiltrates, and she did not present with leukocytosis. Her current treatment regimen includes IV Solu-Medrol for bronchospastic disease and short-acting bronchodilators. The patient expresses feeling extremely weak and has not fully recovered from her recent hospitalization due to the RSV viral infection and asthma exacerbation. Her past medical history also includes a diagnosis and treatment of breast cancer in 2018. She has been taking exemestane daily, presumably for hormone receptor-positive breast cancer. She uses CPAP support nightly, and her last device report showed excellent compliance and a very low device AHI. Review of Systems Review of Systems: Patient reports shortness of breath with activities. She reports no weight. Her appetite has been poor. She has history of chronic nasal problems. She had episode of diarrhea earlier today. She has no abdominal pain. She has chronic lower extremity edema. The remainder of the 12 point system review is negative All systems
[2023-03-03] MEDS: BUMETANIDE 1 MG TABLET PO (11:52)
[2023-03-03 11:55] LABS: Glucose Point of Care 178 mg/dl (65-105)
[2023-03-03] MEDS: diphenhydrAMINE HCl INJ 50 MG/ML VIAL IV PUSH (11:55)
[2023-03-03] MEDS: MORPHINE SULFATE (*CRX) 2 MG/ML INJ 1 MG IV PUSH ×2 (11:55→21:43)
[2023-03-03 12:08] LABS: Alveolar/Arterial O2 Gradient 615.8 mmHg; Base Excess ABG -0.5 mEq/l (+/-2.0); Fractional Inspired Oxygen 100 %; HCO3 ABG 23.4 mEq/l (22.0-26.0); Oxygen Content ABG 13.7 %vol (16.0-22.0); Oxygen Saturation ABG 92.5 % (95.0-100.0); PCO2 ABG 35.7 mmHg (35.0-45.0); PO2 ABG 61.5 mmHg (80.0-100.0); PO2 FiO2 Ratio Arterial Blood 0.62 %; Total Hemoglobin 10.8 g/dL (12.0-18.0); pH ABG 7.435 (7.350-7.450)
[2023-03-03 12:14] LABS: Site Drawn LEFT RADIAL
[2023-03-03 12:15] LABS: Device NON-REBREATHER MASK
--- NOTE | 2023-03-03 13:09 | PM.IMPN ---
Progress Note: A&P Assessment and Plan (1) Acute and chronic respiratory failure with hypoxia: Code(s): J96.21 - Acute and chronic respiratory failure with hypoxia Status: Acute (2) Chronic hyponatremia: Code(s): E87.1 - Hypo-osmolality and hyponatremia Status: Acute (3) Acute exacerbation of COPD with asthma: Code(s): J44.1 - Chronic obstructive pulmonary disease with (acute) exacerbation; J45.901 - Unspecified asthma with (acute) exacerbation Status: Acute (4) Asthma exacerbation: Qualifiers: Asthma severity: moderate Asthma persistence: persistent Qualified Code(s): J45.41 - Moderate persistent asthma with (acute) exacerbation Code(s): J45.901 - Unspecified asthma with (acute) exacerbation Status: Acute (5) Bilateral lower extremity edema: Code(s): R60.0 - Localized edema Status: Acute (6) Hypertension: Qualifiers: Hypertension type: primary hypertension Qualified Code(s): I10 - Essential (primary) hypertension Code(s): I10 - Essential (primary) hypertension Status: Acute (7) Nasal congestion: Code(s): R09.81 - Nasal congestion Status: Acute (8) EVELYN (obstructive sleep apnea): Code(s): G47.33 - Obstructive sleep apnea (adult) (pediatric) Status: Acute (9) Pulmonary embolism: Qualifiers: Pulmonary embolism type: multiple subsegmental (without acute cor pulmonale) Qualified Code(s): I26.94 - Multiple subsegmental pulmonary emboli without acute cor pulmonale Code(s): I26.99 - Other pulmonary embolism without acute cor pulmonale Status: Acute Plan Acute respiratory Failure with hypoxia -secondary to Asthma exacerbation and multiple PE -CTA showed bilateral PE RLL and KATHERINE -supplemental oxygen wean as tolerated -dounebs -mucolytic -incentive spirometer while awake -Claritin HS -continuos pulse ox -Pulmonary consulted PE -CTA bilateral RLL and KATHERINE -eliquis started loading dose x 7 days -continious pulse ox -TTE check for RT heart strain not noted on CTA BLE edema -HX diastolic and moderate to severe MR -resumed home bumex -fluid restriction -elevate at rest -may apply tyrel wraps -TTE pending for evaluation Hyponatremia w/hypo-osmo -Chronic -Stable -Trend BMP -monitor mental status EVELYN -Patient wears CPAP at home Time Spent With Patient Time: >35 minutes with patient and family following RR Time with patient: Greater than 35 minutes Subjective Date/time seen: 03/03/23 13:09 Interval history: Chief Complaint: sob Narrative: ?this is an 87-year-old female with past medical history significant for COPD/asthma, diastolic dysfunction, breast CA. patient had been admitted recently and discharged to rehabilitation initially patient came in the hospital with RSV and respiratory failure.? Has been released for rehabilitation and comes back to the emergency room due to shortness of breath, generalized weakness, worsening bilateral lower extremity edema.? Patient has had poor appetite also persistent cough, denies any chest pain, denies syncope or near syncope no fevers no rigors no chills. 03/03/2023: Rapid response was called on patient after returning from CTA with respiratory distress. Tachypnea with a RR of 35-40, labored breathing with mild wheezing on auscultation throughout. Patient does have a history of Asthma. Ordered 25 benadyrl, 1mg morphine, already on methylprednisone to cover for potential allergic reaction to contrast. Patient tachycardiac but oxygenating, Patient had been placed on a non-rebreather switched back to 3L NC. Patient son at bedside both report that patient has these episodes at home. evaluation of CTA showed bilateral PE's and patient was started on eliquis. Patient improved with medication and ABG did show hypoxia. TTE ordered to evaluate for any RT heart strain and CHFprevious history MR and 2+ pitting edema on assessment.
--- NOTE | 2023-03-03 13:17 | PHAR ---
The patient's home med of Exemestane 25 mg tablet has been verified.
[2023-03-03] MEDS: PERFLUTREN LIPID MICROSPHERES 1.5 ML VIAL DILUTED TO 10 ML TOTAL VOLUME IV PUSH (15:24)
[2023-03-03] MEDS: guaiFENesin 12 HR 600 MG TABCR PO (20:38)
[2023-03-03] MEDS: APIXABAN 5 MG TABLET 10 MG PO (20:38)
[2023-03-03] MEDS: ALPRAZolam (*CRX) 0.5 MG TABLET PO (20:38)
[2023-03-03] MEDS: LORATADINE 10 MG TABLET PO (20:38)
[2023-03-03] MEDS: BUDESONIDE RESPULE NEB 0.5 MG/2 ML AMP INHALATION (20:51)
[2023-03-03] MEDS: guaiFENesin 600 MG/DEXTROMETHORPHAN 30 MG SR TAB 12 HR 1 TAB PO (21:43)
[2023-03-04] VITALS (15 sets, daily range): BP systolic 109–114; BP diastolic 42–79; PULSE 60–88; RESP 14–20; TEMP 35.7–36.5; O2SAT 90–98
[2023-03-04] MEDS: IPRATROPIUM 0.5 MG/ALBUTEROL SULFATE 2.5 MG AMPUL.NEB 3 ML INHALATION ×4 (03:04→20:52)
[2023-03-04] MEDS: WATER FOR IRRIGATION, STERILE 1,000 ML BOTTLE 1000 ML (03:19)
[2023-03-04 06:31] LABS: Basophils Percent Auto 0.1 % (0.2-1.2); Hematocrit 24.6 % (37.0-47.0); Hemoglobin 8.1 g/dL (12.0-15.0); Immature Granulocyte Percent A 1.7 % (0-0.5); Lymphocytes Absolute Auto 1.31 K/mm3 (0.9-3.2); Lymphocytes Percent Auto 11.4 % (18.3-44.2); Mean Corpuscular HGB Conc 32.9 g/dl (32-36); Mean Corpuscular Hemoglobin 27.7 pg (26-34); Mean Corpuscular Volume 84.2 fl (80-100); Mean Platelet Volume 9.6 fl (7.4-10.4); Monocytes Absolute Auto 0.5 K/mm3 (0.1-0.6); Monocytes Percent Auto 4.4 % (2.6-8.5); Neutrophils Absolute Auto 9.5 K/mm3 (1.3-6.7); Neutrophils Percent Auto 82.4 % (45.5-73.1); Platelet Count Result 432 k/mm3 (150-375); Red Blood Count 2.92 M/mm3 (4.2-5.4); Red Cell Distribution Width 17.2 % (11.5-14.5); White Blood Count 11.5 K/mm3 (4.5-10.0)
[2023-03-04 06:41] LABS: Alanine Aminotransferase 11 U/L (6-35); Albumin Level 2.7 g/dL (3.5-5.1); Alkaline Phosphatase 60 U/L (38-126); Anion Gap 4 mmol/L (8-16); Aspartate Amino Transferase 16 U/L (14-36); Bilirubin,Total 0.3 mg/dL (0.2-1.3); Blood Urea Nitrogen 12 mg/dL (7-17); Calcium 8.5 mg/dL (8.4-10.2); Carbon Dioxide 29 mmol/L (22-30); Chloride 94 mmol/L (98-107); Estimated CRCL calculation 43 ml/min; Estimated Glomerular Filt Rate > 60; Glucose 159 mg/dL (65-110); Potassium 3.5 mmol/L (3.4-5.0); Sodium 127 mmol/L (137-145)
[2023-03-04] MEDS: BUDESONIDE RESPULE NEB 0.5 MG/2 ML AMP INHALATION ×2 (08:01→20:51)
--- NOTE | 2023-03-04 09:06 | PM.PNPUL ---
Progress Note: A&P Assessment and Plan (1) Pulmonary embolism: Qualifiers: Pulmonary embolism type: multiple subsegmental (without acute cor pulmonale) Qualified Code(s): I26.94 - Multiple subsegmental pulmonary emboli without acute cor pulmonale Code(s): I26.99 - Other pulmonary embolism without acute cor pulmonale Status: Acute Assessment and Plan: This 87-year-old female with a history of asthma chronically on maintenance bronchodilators, obstructive sleep apnea on CPAP recently hospitalized and treated for asthma exacerbation related to RSV type B viral infection. Patient has not fully recovered from asthma exacerbation and viral infection. She presented with a generalized weakness cough and reportedly low oxygen at home. Chest x-ray showed no new infiltrates. She has no leukocytosis and on physical exam she has no wheezing. She has chronic lower extremity edema which is not new. On blood gases she had respiratory alkalosis. CT PA showed bilateral pulmonary embolism small pleural effusions bilaterally. The patient has been started on a direct anticoagulant. Respiratory status stable last 24 hours. Plan: Continue with current management out of bed to chair. Lower extremities study for DVT. (2) Acute and chronic respiratory failure with hypoxia: Code(s): J96.21 - Acute and chronic respiratory failure with hypoxia Status: Acute (3) Acute exacerbation of COPD with asthma: Code(s): J44.1 - Chronic obstructive pulmonary disease with (acute) exacerbation; J45.901 - Unspecified asthma with (acute) exacerbation Status: Acute Subjective Date/time seen: 03/04/23 09:06 Interval history: Patient reports no new respiratory symptoms. She continues to have cough as before. She could not tell whether she was feeling better. Review of Systems Review of Systems: All systems reviewed & are unremarkable except as noted in HPI and below (HPI and below) Exam Narrative: GENERAL APPEARANCE: Well developed, well nourished, alert and cooperative, and appears to be in no acute distress while on supplemental oxygen via nasal cannula SKIN: Inspection of the skin reveals no rashes, ulcerations or petechiae. HEENT: Sclerae anicteric and conjunctivae pink and moist. Extraocular movements were intact and pupils were equal, round, and reactive to light. The oral mucosa, hard and soft palate, tongue and posterior pharynx were normal. NECK: Supple. There was no thyroid enlargement, and no tenderness, or masses were felt. LUNGS: Clear lungs bilaterally no wheezing CARDIAC: There was a regular rate and rhythm without any murmurs, gallops, rubs. ABDOMEN: Soft and nontender with normal bowel sounds. There was no organomegaly. LYMPH NODES: No lymphadenopathy was appreciated in the neck. EXTREMITIES: No cyanosis, clubbing; 1+ edema. NEUROLOGIC: Alert and oriented x 3. Normal affect. Objective Data Vital Signs Vital Signs: Vital Signs - 24 hr 03/03/23 12:00 03/03/23 14:55 03/03/23 15:09 Temperature Pulse Rate 95 72 78 Respiratory Rate 32 H 18 18 Blood Pressure Pulse Oximetry 97 Oxygen Delivery Nasal Cannula Oxygen Flow Rate 2 Fraction of Inspired Oxygen 03/03/23 14:00 03/03/23 20:51 03/03/23 20:51 Temperature 36.5 C Pulse Rate 75 71 71 Respiratory Rate 16 18 18 Blood Pressure 117/54 L Pulse Oximetry 97 98 Oxygen Delivery Nasal Cannula Oxygen Flow Rate 2 Fraction of Inspired Oxygen 28 03/03/23 21:04 03/03/23 21:52 03/03/23 22:09 Temperature 36.4 C L Pulse Rate 76 71 67 Respiratory Rate 18 22 H Blood Pressure 126/60 Pulse Oximetry 99 91 Oxygen Delivery Autopap Oxygen Flow Rate Fraction of Inspired Oxygen 03/04/23 03:04 03/04/23 03:05 03/04/23 03:14 Temperature Pulse Rate 62 62 60 Respiratory Rate 14 14 Blood Pressure Pulse Oximetry 96 Oxygen Delivery Autopap Oxygen Flow Rate Fraction of Inspired Oxygen
[2023-03-04] MEDS: guaiFENesin 600 MG/DEXTROMETHORPHAN 30 MG SR TAB 12 HR 1 TAB PO ×2 (09:23→20:46)
[2023-03-04] MEDS: dilTIAZem HCL CD 120 MG CAP.24HR PO (09:23)
[2023-03-04] MEDS: APIXABAN 5 MG TABLET 10 MG PO ×2 (09:23→20:46)
[2023-03-04] MEDS: METOPROLOL SUCCINATE EXT REL 50 MG TABCR PO (09:23)
[2023-03-04] MEDS: BUMETANIDE 1 MG TABLET PO (09:24)
[2023-03-04] MEDS: amLODIPine BESYLATE 5 MG TABLET 10 MG PO (09:24)
[2023-03-04] MEDS: SERTRALINE HCL 50 MG TABLET 150 MG PO (09:24)
[2023-03-04] MEDS: FERROUS SULFATE 325 MG TABLET DR 324 MG PO (09:24)
[2023-03-04] MEDS: LOSARTAN POTASSIUM 50 MG TABLET PO (09:24)
[2023-03-04] MEDS: FLUTICASONE PROPIONATE 0.05% NA SPR 16 GM BTL (*BKC) 2 SPRAY NASAL ×2 (09:27→20:47)
--- NOTE | 2023-03-04 13:29 | PCOTNOTE ---
Attempted to see pt. for occupational therapy evaluation. Recent findings of bilateral LE DVT, nursing in agreement to wait on seeing pt. until hospitalist notified and pt. safe to mobilize. Following.
--- NOTE | 2023-03-04 13:53 | PCPTNOTE ---
Attempted PT evaluation, pt has Recent findings of bilateral LE DVT. Will see pt when medically appropriate.
[2023-03-04] MEDS: ALPRAZolam (*CRX) 0.5 MG TABLET PO (14:29)
--- NOTE | 2023-03-04 15:56 | PM.IMPN ---
Progress Note: A&P Assessment and Plan (1) Acute and chronic respiratory failure with hypoxia: Code(s): J96.21 - Acute and chronic respiratory failure with hypoxia Status: Acute Assessment and Plan: secondary to Asthma exacerbation and multiple PE -CTA showed bilateral PE RLL and KATHERINE -currenlty 3L supplemental oxygen - wean as tolerated -dounebs -Pulmonology following (2) Chronic hyponatremia: Code(s): E87.1 - Hypo-osmolality and hyponatremia Status: Chronic Assessment and Plan: Chronic - 127 today Trend BMP (3) Acute exacerbation of COPD with asthma: Code(s): J44.1 - Chronic obstructive pulmonary disease with (acute) exacerbation; J45.901 - Unspecified asthma with (acute) exacerbation Status: Acute Assessment and Plan: see above plan (4) Bilateral lower extremity edema: Code(s): R60.0 - Localized edema Status: Chronic Assessment and Plan: HX diastolic and moderate to severe MR -resumed home bumex -fluid restriction -elevate at rest -may apply tyrel wraps -TTE pending for evaluation ? (5) Hypertension: Qualifiers: Hypertension type: primary hypertension Qualified Code(s): I10 - Essential (primary) hypertension Code(s): I10 - Essential (primary) hypertension Status: Chronic Assessment and Plan: continue home medications (6) EVELYN (obstructive sleep apnea): Code(s): G47.33 - Obstructive sleep apnea (adult) (pediatric) Status: Chronic Assessment and Plan: continue home CPAP (7) Pulmonary embolism: Qualifiers: Pulmonary embolism type: multiple subsegmental (without acute cor pulmonale) Qualified Code(s): I26.94 - Multiple subsegmental pulmonary emboli without acute cor pulmonale Code(s): I26.99 - Other pulmonary embolism without acute cor pulmonale Status: Acute Assessment and Plan: CTA bilateral RLL and KATHERINE eliquis started loading dose x 7 days TTE check for RT heart strain not noted on CTA? US dopplers showed bilateral DVT Subjective Date/time seen: 03/04/23 15:56 Interval history: Patient sitting up at edge of bed this morning, getting ready to be moved to the chair. She denies any acute events overnight. Chronic edema appears improved, but still present. US dopplers showed bilateral DVT. Continue Eliquis. BC pending. Pulmonology following. Patient still on 2L O2 which is not her baseline. Continue to monitor. Review of Systems Review of Systems: All systems reviewed & are unremarkable except as noted in HPI and below Exam Narrative: GENERAL: Well developed, well nourished, in no acute distress on supplemental oxygen via nasal cannula HEENT: PERRLA, EOMI NECK: Supple. LUNGS: Clear lungs to ausculation. CARDIAC: RRR without any murmurs, gallops, rubs. ABDOMEN: Soft and nontender with normal bowel sounds. EXTREMITIES: No cyanosis, clubbing; 1+ edema. NEUROLOGIC: Alert and oriented x 3. Normal affect. Objective Data Vital Signs Vital Signs: Vital Signs - 24 hr 03/03/23 20:51 03/03/23 20:51 03/03/23 21:04 Temperature Pulse Rate 71 71 76 Respiratory Rate 18 18 18 Blood Pressure Pulse Oximetry 98 Oxygen Delivery Nasal Cannula Oxygen Flow Rate 2 Fraction of Inspired Oxygen 28 03/03/23 21:52 03/03/23 22:09 03/04/23 03:04 Temperature 97.5 F L Pulse Rate 71 67 62 Respiratory Rate 22 H Blood Pressure 126/60 Pulse Oximetry 99 91 96 Oxygen Delivery Autopap Autopap Oxygen Flow Rate Fraction of Inspired Oxygen 03/04/23 03:05 03/04/23 03:14 03/04/23 06:00 Temperature 97.3 F L Pulse Rate 62 60 71 Respiratory Rate 14 14 18 Blood Pressure 114/79 Pulse Oximetry 95 Oxygen Delivery Oxygen Flow Rate Fraction of Inspired Oxygen 03/04/23 08:01 03/04/23 08:01 03/04/23 08:22 Temperature Pulse Rate 73 80 Respiratory Rate 16 18 Blood Pressure Pulse Oximetry 9
[2023-03-04] MEDS: LORATADINE 10 MG TABLET PO (20:47)
[2023-03-04] MEDS: SALINE 0.65% NAS SOLN 44 ML BTL 1 SPRAY NASAL (20:47)
[2023-03-04] MEDS: MELATONIN 5 MG TABLET PO (20:53)
[2023-03-05] VITALS (12 sets, daily range): BP systolic 100–109; BP diastolic 46–57; PULSE 59–71; RESP 18–20; TEMP 35.5–36.4; O2SAT 91–96
[2023-03-05 07:00] LABS: Basophils Percent Auto 0.3 % (0.2-1.2); Eosinophils Percent Auto 0.1 % (0-4.4); Hemoglobin 8.1 g/dL (12.0-15.0); Immature Granulocyte Absolute 0.21 K/mm3 (0.00-0.031); Immature Granulocyte Percent A 2.4 % (0-0.5); Mean Corpuscular HGB Conc 32.4 g/dl (32-36); Mean Corpuscular Hemoglobin 27.7 pg (26-34); Mean Corpuscular Volume 85.6 fl (80-100); Mean Platelet Volume 9.5 fl (7.4-10.4); Monocytes Absolute Auto 0.6 K/mm3 (0.1-0.6); Monocytes Percent Auto 7.2 % (2.6-8.5); Neutrophils Absolute Auto 5.7 K/mm3 (1.3-6.7); Platelet Count Result 441 k/mm3 (150-375); Red Blood Count 2.92 M/mm3 (4.2-5.4); Red Cell Distribution Width 17.6 % (11.5-14.5); White Blood Count 8.8 K/mm3 (4.5-10.0)
[2023-03-05] MEDS: IPRATROPIUM 0.5 MG/ALBUTEROL SULFATE 2.5 MG AMPUL.NEB 3 ML INHALATION ×3 (07:11→20:05)
[2023-03-05] MEDS: BUDESONIDE RESPULE NEB 0.5 MG/2 ML AMP INHALATION ×2 (07:11→20:05)
[2023-03-05 07:18] LABS: Alanine Aminotransferase 11 U/L (6-35); Albumin Level 2.5 g/dL (3.5-5.1); Alkaline Phosphatase 53 U/L (38-126); Anion Gap 5 mmol/L (8-16); Aspartate Amino Transferase 18 U/L (14-36); Bilirubin,Total 0.3 mg/dL (0.2-1.3); Blood Urea Nitrogen 20 mg/dL (7-17); Calcium 8.2 mg/dL (8.4-10.2); Carbon Dioxide 31 mmol/L (22-30); Chloride 92 mmol/L (98-107); Estimated CRCL calculation 35 ml/min; Estimated Glomerular Filt Rate 53; Glucose 93 mg/dL (65-110); Potassium 3.2 mmol/L (3.4-5.0); Sodium 128 mmol/L (137-145)
--- NOTE | 2023-03-05 09:41 | PM.PNPUL ---
Progress Note: A&P Assessment and Plan (1) Pulmonary embolism: Qualifiers: Pulmonary embolism type: multiple subsegmental (without acute cor pulmonale) Qualified Code(s): I26.94 - Multiple subsegmental pulmonary emboli without acute cor pulmonale Code(s): I26.99 - Other pulmonary embolism without acute cor pulmonale Status: Acute Assessment and Plan: This 87-year-old female with a history of asthma chronically on maintenance bronchodilators, obstructive sleep apnea on CPAP recently hospitalized and treated for asthma exacerbation related to RSV type B viral infection. Patient has not fully recovered from asthma exacerbation and viral infection. She presented with a generalized weakness cough and reportedly low oxygen at home. Chest x-ray showed no new infiltrates. She has no leukocytosis and on physical exam she has no wheezing. She has chronic lower extremity edema which is not new. On blood gases she had respiratory alkalosis. CT PA showed bilateral pulmonary embolism small pleural effusions bilaterally. The patient has been started on a direct anticoagulant. Respiratory status stable last 48 hours. Lower extremity study showed bilateral below-knee blood clots Plan: Continue with current management out of bed to chair. Will repeat chest x-ray to assess size of pleural effusions. (2) Acute and chronic respiratory failure with hypoxia: Code(s): J96.21 - Acute and chronic respiratory failure with hypoxia Status: Acute (3) Acute exacerbation of COPD with asthma: Code(s): J44.1 - Chronic obstructive pulmonary disease with (acute) exacerbation; J45.901 - Unspecified asthma with (acute) exacerbation Status: Acute Subjective Date/time seen: 03/05/23 09:41 Interval history: Patient has no new respiratory symptoms. She continues to have a mild coughing as before. No shortness of breath at rest. Afebrile. Still on supplemental oxygen 2 liters/minute Review of Systems Review of Systems: All systems reviewed & are unremarkable except as noted in HPI and below (HPI and below) Exam Narrative: GENERAL APPEARANCE: Well developed, well nourished, alert and cooperative, and appears to be in no acute distress while on supplemental oxygen via nasal cannula SKIN: Inspection of the skin reveals no rashes, ulcerations or petechiae. HEENT: Sclerae anicteric and conjunctivae pink and moist. Extraocular movements were intact and pupils were equal, round, and reactive to light. The oral mucosa, hard and soft palate, tongue and posterior pharynx were normal. NECK: Supple. There was no thyroid enlargement, and no tenderness, or masses were felt. LUNGS: Clear lungs bilaterally no wheezing CARDIAC: There was a regular rate and rhythm without any murmurs, gallops, rubs. ABDOMEN: Soft and nontender with normal bowel sounds. There was no organomegaly. LYMPH NODES: No lymphadenopathy was appreciated in the neck. EXTREMITIES: No cyanosis, clubbing; 1+ edema. NEUROLOGIC: Alert and oriented x 3. Normal affect. Objective Data Vital Signs Vital Signs: Vital Signs - 24 hr 03/04/23 13:26 03/04/23 13:26 03/04/23 13:37 Temperature Pulse Rate 87 74 Respiratory Rate 18 18 Blood Pressure Pulse Oximetry 98 Oxygen Delivery Nasal Cannula Oxygen Flow Rate 2 Fraction of Inspired Oxygen 28 03/04/23 14:00 03/04/23 14:24 03/04/23 20:52 Temperature 35.7 C L Pulse Rate 74 65 Respiratory Rate 16 18 Blood Pressure 109/42 L Pulse Oximetry 98 98 Oxygen Delivery Nasal Cannula Oxygen Flow Rate 2 Fraction of Inspired Oxygen 03/04/23 21:05 03/04/23 23:00 03/04/23 22:00 Temperature 36.5 C Pulse Rate 67 63 Respiratory Rate 18 20 Blood Pressure 109/53 L Pulse Oximetry 97 Oxygen Delivery Autopap Oxygen Flow Rate Fraction of Inspired Oxygen 03/05/23 06:00 03/05/23 07:15 03/05/23 07:15 Temperature 36.4 C L Pulse Rate 63 70 70 Respiratory
[2023-03-05] MEDS: SERTRALINE HCL 50 MG TABLET 150 MG PO (09:51)
[2023-03-05] MEDS: METOPROLOL SUCCINATE EXT REL 50 MG TABCR PO (09:52)
[2023-03-05] MEDS: BUMETANIDE 1 MG TABLET PO (09:52)
[2023-03-05] MEDS: dilTIAZem HCL CD 120 MG CAP.24HR PO (09:53)
[2023-03-05] MEDS: APIXABAN 5 MG TABLET 10 MG PO ×2 (09:53→20:26)
[2023-03-05] MEDS: guaiFENesin 600 MG/DEXTROMETHORPHAN 30 MG SR TAB 12 HR 1 TAB PO ×2 (09:53→20:26)
[2023-03-05] MEDS: POTASSIUM CHLORIDE 20 MEQ ER TABLET 40 MEQ PO (09:53)
[2023-03-05] MEDS: amLODIPine BESYLATE 5 MG TABLET 10 MG PO (09:54)
[2023-03-05] MEDS: LOSARTAN POTASSIUM 50 MG TABLET PO (09:54)
[2023-03-05] MEDS: FLUTICASONE PROPIONATE 0.05% NA SPR 16 GM BTL (*BKC) 2 SPRAY NASAL ×2 (09:55→20:27)
--- NOTE | 2023-03-05 13:50 | PM.IMPN ---
Progress Note: A&P Assessment and Plan (1) Acute and chronic respiratory failure with hypoxia: Code(s): J96.21 - Acute and chronic respiratory failure with hypoxia Status: Acute Assessment and Plan: secondary to Asthma exacerbation and multiple PE CTA showed bilateral PE RLL and KATHERINE currently on 2L supplemental oxygen - wean as tolerated dounebs Pulmonology following (2) Chronic hyponatremia: Code(s): E87.1 - Hypo-osmolality and hyponatremia Status: Chronic Assessment and Plan: Chronic - 128 today Trend BMP (3) Acute exacerbation of COPD with asthma: Code(s): J44.1 - Chronic obstructive pulmonary disease with (acute) exacerbation; J45.901 - Unspecified asthma with (acute) exacerbation Status: Acute Assessment and Plan: see above plan (4) Bilateral lower extremity edema: Code(s): R60.0 - Localized edema Status: Chronic Assessment and Plan: HX diastolic and moderate to severe MR resumed home bumex US dopplers showed bilateral DVT (5) Hypertension: Qualifiers: Hypertension type: primary hypertension Qualified Code(s): I10 - Essential (primary) hypertension Code(s): I10 - Essential (primary) hypertension Status: Chronic Assessment and Plan: continue home medications (6) EVELYN (obstructive sleep apnea): Code(s): G47.33 - Obstructive sleep apnea (adult) (pediatric) Status: Chronic Assessment and Plan: continue home CPAP (7) Pulmonary embolism: Qualifiers: Pulmonary embolism type: multiple subsegmental (without acute cor pulmonale) Qualified Code(s): I26.94 - Multiple subsegmental pulmonary emboli without acute cor pulmonale Code(s): I26.99 - Other pulmonary embolism without acute cor pulmonale Status: Acute Assessment and Plan: CTA bilateral RLL and KATHERINE eliquis started loading dose x 7 days US dopplers showed bilateral DVT Subjective Date/time seen: 03/05/23 13:50 Interval history: Patient is in no distress this morning, still on 2L O2. BC still pending. She is reporting feeling a fullness sensation in her ears. Her right ear has mild effusion, possibly from congestion. She denies SOB. chest pain. Her repeat CXR this am showed no acute process. Pulmonology following. Patient working with PT up to chair and movement within her room. Review of Systems Review of Systems: All systems reviewed & are unremarkable except as noted in HPI and below Exam Narrative: GENERAL: Well developed, well nourished, in no acute distress on supplemental oxygen via nasal cannula HEENT: PERRLA, EOMI NECK: Supple. LUNGS: Clear lungs to ausculation. CARDIAC: RRR without any murmurs, gallops, rubs. ABDOMEN: Soft and nontender with normal bowel sounds. EXTREMITIES: No cyanosis, clubbing; 1+ edema. NEUROLOGIC: Alert and oriented x 3. Normal affect. Objective Data Vital Signs Vital Signs: Vital Signs - 24 hr 03/04/23 14:00 03/04/23 14:24 03/04/23 20:52 Temperature 96.2 F L Pulse Rate 74 65 Respiratory Rate 16 18 Blood Pressure 109/42 L Pulse Oximetry 98 98 Oxygen Delivery Nasal Cannula Oxygen Flow Rate 2 Fraction of Inspired Oxygen 28 03/04/23 21:05 03/04/23 23:00 03/04/23 22:00 Temperature 97.7 F Pulse Rate 67 63 Respiratory Rate 18 20 Blood Pressure 109/53 L Pulse Oximetry 97 Oxygen Delivery Autopap Oxygen Flow Rate Fraction of Inspired Oxygen 03/05/23 06:00 03/05/23 07:15 03/05/23 07:15 Temperature 97.5 F L Pulse Rate 63 70 70 Respiratory Rate 20 18 18 Blood Pressure 107/57 L Pulse Oximetry 93 93 Oxygen Delivery Nasal Cannula Oxygen Flow Rate 2 Fraction of Inspired Oxygen 03/05/23 07:25 03/05/23 09:33 03/05/23 09:52 Temperature Pulse Rate 71 63 Respiratory Rate 18 Blood Pressure Pulse Oximetry Oxygen Delivery Nasal Cannula Oxygen Flow Rate 2 Fracti
[2023-03-05] MEDS: LORATADINE 10 MG TABLET PO (20:26)
[2023-03-06] VITALS (11 sets, daily range): BP systolic 92–131; BP diastolic 46–61; PULSE 57–72; RESP 16–20; TEMP 36.5; O2SAT 90–93
[2023-03-06 06:46] LABS: Basophils Absolute Auto 0.1 K/mm3 (0.0-0.1); Basophils Percent Auto 0.8 % (0.2-1.2); Eosinophils Percent Auto 0.4 % (0-4.4); Hematocrit 25.6 % (37.0-47.0); Hemoglobin 8.2 g/dL (12.0-15.0); Immature Granulocyte Absolute 0.43 K/mm3 (0.00-0.031); Immature Granulocyte Percent A 5.7 % (0-0.5); Lymphocytes Absolute Auto 2.47 K/mm3 (0.9-3.2); Lymphocytes Percent Auto 32.5 % (18.3-44.2); Mean Corpuscular Hemoglobin 27.9 pg (26-34); Mean Corpuscular Volume 87.1 fl (80-100); Mean Platelet Volume 9.3 fl (7.4-10.4); Monocytes Absolute Auto 0.8 K/mm3 (0.1-0.6); Monocytes Percent Auto 9.9 % (2.6-8.5); Neutrophils Absolute Auto 3.9 K/mm3 (1.3-6.7); Neutrophils Percent Auto 50.7 % (45.5-73.1); Nucleated Red Blood Cells Perc 0.4 % (0.0-0.2); Platelet Count Result 460 k/mm3 (150-375); Red Blood Count 2.94 M/mm3 (4.2-5.4); Red Cell Distribution Width 17.7 % (11.5-14.5); White Blood Count 7.6 K/mm3 (4.5-10.0)
[2023-03-06 06:53] LABS: Alanine Aminotransferase 10 U/L (6-35); Albumin Level 2.4 g/dL (3.5-5.1); Alkaline Phosphatase 55 U/L (38-126); Anion Gap 2 mmol/L (8-16); Aspartate Amino Transferase 16 U/L (14-36); Bilirubin,Total 0.2 mg/dL (0.2-1.3); Blood Urea Nitrogen 19 mg/dL (7-17); Calcium 8.2 mg/dL (8.4-10.2); Carbon Dioxide 32 mmol/L (22-30); Chloride 97 mmol/L (98-107); Estimated CRCL calculation 35 ml/min; Estimated Glomerular Filt Rate 53; Glucose 82 mg/dL (65-110); Sodium 131 mmol/L (137-145)
[2023-03-06] MEDS: BUDESONIDE RESPULE NEB 0.5 MG/2 ML AMP INHALATION (07:58)
[2023-03-06] MEDS: IPRATROPIUM 0.5 MG/ALBUTEROL SULFATE 2.5 MG AMPUL.NEB 3 ML INHALATION ×2 (07:58→13:49)
[2023-03-06 08:13] LABS: Anisocytosis 1+ (NORMAL); Hypochromasia 1+ (NORMAL); Poikilocytosis 1+ (NORMAL); Polychromasia 1+ (NORMAL); Schistocytes Rare (NORMAL)
[2023-03-06 08:14] LABS: Atypical Lymphocytes Present
--- NOTE | 2023-03-06 09:48 | PM.PNPUL ---
Progress Note: A&P Assessment and Plan (1) Pulmonary embolism: Qualifiers: Pulmonary embolism type: multiple subsegmental (without acute cor pulmonale) Qualified Code(s): I26.94 - Multiple subsegmental pulmonary emboli without acute cor pulmonale Code(s): I26.99 - Other pulmonary embolism without acute cor pulmonale Status: Acute Assessment and Plan: This 87-year-old female with a history of asthma chronically on maintenance bronchodilators, obstructive sleep apnea on CPAP recently hospitalized and treated for asthma exacerbation related to RSV type B viral infection. Patient has not fully recovered from asthma exacerbation and viral infection. She presented with a generalized weakness cough and reportedly low oxygen at home. Chest x-ray showed no new infiltrates. She has no leukocytosis and on physical exam she has no wheezing. She has chronic lower extremity edema which is not new. On blood gases she had respiratory alkalosis. CT PA showed bilateral pulmonary embolism small pleural effusions bilaterally. The patient has been started on a direct anticoagulant. Respiratory status stable last 48 hours. Lower extremity study showed bilateral below-knee blood clots. Chest x-ray done yesterday showed no active lung disease. Plan: Okay to DC patient to rehab unit patient should complete Eliquis therapy 10 mg p.o. twice daily for total of 7 days since 1st dose 3 days ago and then continue with a Eliquis 5 mg p.o. twice daily. She will continue with Symbicort 160/4.5 inhaler 2 puffs twice daily and rescue albuterol inhaler p.r.n. for her chronic asthma. The patient needs to continue with her CPAP therapy for sleep apnea. She will call [facility] to make an appointment in approximately 30 days from today. Patient will need evaluation for home oxygen prior to discharge. Will sign off, please call with any questions. (2) Acute and chronic respiratory failure with hypoxia: Code(s): J96.21 - Acute and chronic respiratory failure with hypoxia Status: Acute (3) Acute exacerbation of COPD with asthma: Code(s): J44.1 - Chronic obstructive pulmonary disease with (acute) exacerbation; J45.901 - Unspecified asthma with (acute) exacerbation Status: Acute Subjective Date/time seen: 03/06/23 09:48 Interval history: Patient reports no new respiratory symptoms. Cough significantly improved. Remains on room air. Review of Systems Review of Systems: All systems reviewed & are unremarkable except as noted in HPI and below Exam Narrative: GENERAL APPEARANCE: Well developed, well nourished, alert and cooperative, and appears to be in no acute distress while on supplemental oxygen via nasal cannula SKIN: Inspection of the skin reveals no rashes, ulcerations or petechiae. HEENT: Sclerae anicteric and conjunctivae pink and moist. Extraocular movements were intact and pupils were equal, round, and reactive to light. The oral mucosa, hard and soft palate, tongue and posterior pharynx were normal. NECK: Supple. There was no thyroid enlargement, and no tenderness, or masses were felt. LUNGS: Clear lungs bilaterally no wheezing CARDIAC: There was a regular rate and rhythm without any murmurs, gallops, rubs. ABDOMEN: Soft and nontender with normal bowel sounds. There was no organomegaly. LYMPH NODES: No lymphadenopathy was appreciated in the neck. EXTREMITIES: No cyanosis, clubbing; 1+ edema. NEUROLOGIC: Alert and oriented x 3. Normal affect. Objective Data Vital Signs Vital Signs: Vital Signs - 24 hr 03/05/23 09:52 03/05/23 10:27 03/05/23 13:05 Temperature Pulse Rate 63 62 Respiratory Rate 18 Blood Pressure Pulse Oximetry Oxygen Delivery Nasal Cannula Oxygen Flow Rate 2 Fraction of Inspired Oxygen 03/05/23 13:15 03/05/23 14:00 03/05/23 20:05 Temperature 35.5 C L Pulse Rate 65 64 62 Respiratory Rate 18 18 18 Blood Pressure 100/51 L Pulse Oximetry
[2023-03-06] MEDS: SERTRALINE HCL 50 MG TABLET 150 MG PO (10:32)
[2023-03-06] MEDS: METOPROLOL SUCCINATE EXT REL 50 MG TABCR PO (10:32)
[2023-03-06] MEDS: APIXABAN 5 MG TABLET 10 MG PO (10:32)
[2023-03-06] MEDS: guaiFENesin 600 MG/DEXTROMETHORPHAN 30 MG SR TAB 12 HR 1 TAB PO (10:32)
[2023-03-06] MEDS: FERROUS SULFATE 325 MG TABLET DR 324 MG PO (10:32)
[2023-03-06] MEDS: amLODIPine BESYLATE 5 MG TABLET 10 MG PO (10:33)
[2023-03-06] MEDS: BUMETANIDE 1 MG TABLET PO (10:33)
[2023-03-06] MEDS: LOSARTAN POTASSIUM 50 MG TABLET PO (10:33)
[2023-03-06] MEDS: dilTIAZem HCL CD 120 MG CAP.24HR PO (10:33)
[2023-03-06 13:55] LABS: SARS-CoV-2 RNA PCR Negative (Negative)
--- NOTE | 2023-03-06 14:56 | PM.DS ---
DS: Admitting Diagnosis Discharge Date 03/06/23 Admitting Diagnosis hypoxia DS: Discharge Diagnosis Discharge Diagnosis (1) Acute and chronic respiratory failure with hypoxia: Code(s): J96.21 - Acute and chronic respiratory failure with hypoxia Status: Acute Assessment and Plan: secondary to Asthma exacerbation and multiple PE CTA showed bilateral PE RLL and KATHERINE currently on room air at rest - home O2 eval to be done prior to d/c f/u with Pulmonology in 30 days d/c on Eliquis (2) Chronic hyponatremia: Code(s): E87.1 - Hypo-osmolality and hyponatremia Status: Chronic Assessment and Plan: Chronic - 131 today (3) Acute exacerbation of COPD with asthma: Code(s): J44.1 - Chronic obstructive pulmonary disease with (acute) exacerbation; J45.901 - Unspecified asthma with (acute) exacerbation Status: Acute Assessment and Plan: see above plan (4) Bilateral lower extremity edema: Code(s): R60.0 - Localized edema Status: Chronic Assessment and Plan: HX diastolic and moderate to severe MR resumed home bumex US dopplers showed bilateral DVT continue Eliquis 10 mg BID for additional 7 days, then 5 mg BID thereafter (5) Hypertension: Qualifiers: Hypertension type: primary hypertension Qualified Code(s): I10 - Essential (primary) hypertension Code(s): I10 - Essential (primary) hypertension Status: Chronic Assessment and Plan: continue home medications (6) EVELYN (obstructive sleep apnea): Code(s): G47.33 - Obstructive sleep apnea (adult) (pediatric) Status: Chronic Assessment and Plan: continue home CPAP (7) Pulmonary embolism: Qualifiers: Pulmonary embolism type: multiple subsegmental (without acute cor pulmonale) Qualified Code(s): I26.94 - Multiple subsegmental pulmonary emboli without acute cor pulmonale Code(s): I26.99 - Other pulmonary embolism without acute cor pulmonale Status: Acute Assessment and Plan: CTA bilateral RLL and KATHERINE eliquis started loading dose x 7 days US dopplers showed bilateral DVT Plan Plan to d/c to [facility] DS: Summary Hospital Course Hospital Course: Patient is an 87 YO female with PMH of COPD/asthma, diastolic dysfunction, breast CA. Patient had been admitted recently and discharged to rehabilitation initially patient came in the hospital with RSV and respiratory failure. She was admitted due to shortness of breath, generalized weakness, worsening bilateral lower extremity edema. Patient has had poor appetite also persistent cough, denies any chest pain, denies syncope or near syncope no fevers no rigors no chills. CT scan showed bilateral PE. Venous Dopplers showed bilateral DVT. She has been started on Eliquis 10 mg BID for 10 days and will transition to 5 mg BID thereafter. She has weaned off supplemental oxygen at rest, but will have home O2 eval prior to d/c to [facility]. Pulmonology following while inpatient and patient will need to follow up in a month outpatient. Will f/u on BC, showing no growth to date. Status at Discharge Functional status at discharge: uses cane/walker Overall status at discharge: patient is progressing back to baseline Time Spent with Patient Time attestation: Total time spent providing and/or coordinating discharge services: Exam Narrative: GENERAL: Well developed, well nourished, in no acute distress on supplemental oxygen via nasal cannula HEENT: PERRLA, EOMI NECK: Supple. LUNGS: Clear lungs to ausculation. CARDIAC: RRR without any murmurs, gallops, rubs. ABDOMEN: Soft and nontender with normal bowel sounds. EXTREMITIES: No cyanosis, clubbing; 1+ edema. NEUROLOGIC: Alert and oriented x 3. Normal affect. DS: Data Data Completed and Pending Labs on day of discharge: Labs from last 24 hours 03/06/23 03/06/23 13:11 05:58 WBC 7.6 RBC 2.94 L Hgb 8.2 L Hct 25
--- NOTE | 2023-03-12 09:02 | IVDEFINITY ---
Prior to administration of IV Definity the patient was educated on the risks and benefits of the imaging enhancing agent including potential adverse side effects. The patient verbalized understanding. Allergies were verified. No exclusion criteria were identified and at least one of the following inclusion criteria were met: 1) physician request, 2) patient technically difficult to image (per the [place] [employer] guidelines of two or more segments not discernable within the apical view), or 3) questionable left ventricular function. ?
== END 2023-03-06 16:40 | DRG 175 ==
LOC: ANHED 21:18 → ANH3MEDSUR 23:26
PROVIDERS: Nurse Practitioner Family; Physician Assistant; Admitting Provider Internal Medicine; Emergency Provider Emergency Medicine; PCP Family Medicine; Visit Provider Nurse Practitioner
DX: J96.21 Acute and chronic respiratory failure with hypoxia; I26.99 Other pulmonary embolism without acute cor pulmonale; E87.1 Hypo-osmolality and hyponatremia; J44.1 Chronic obstructive pulmonary disease with (acute) exacerbation; J45.901 Unspecified asthma with (acute) exacerbation; I82.453 Acute embolism and thrombosis of peroneal vein, bilateral; I82.432 Acute embolism and thrombosis of left popliteal vein; D50.9 Iron deficiency anemia, unspecified; G47.33 Obstructive sleep apnea (adult) (pediatric); I11.9 Hypertensive heart disease without heart failure; M17.0 Bilateral primary osteoarthritis of knee; Z11.52 Encounter for screening for COVID-19; Z85.3 Personal history of malignant neoplasm of breast; Z99.89 Dependence on other enabling machines and devices
CPT/HCPCS: 36415; 36600; 71045; 71275; 80053; 81001; 82805; 82948; 83735; 83880; 84484; 85025; 85027; 85610; 85730; 87040; 87635; 87637; 93005; 93970; 94002; 94640; 96374; 96376; 97161; 97166; 97530; 97535; 99285; A9270; C8929; G0378; J1200; J2270; J2930; Q9957; Q9967

== ENCOUNTER 2023-03-16 17:14 | Inpatient (IN) | payer MEDICARE, OTHER, SELFPAY ==
--- NOTE | ~2023-03-16 | XR_ITS ---
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 RESULT: Lines, tubes, and devices: None. Lungs and pleura: Senescent/emphysematous change. No focal consolidation or pneumothorax. Mild bilat eral posterior costophrenic angle blunting. Cardiomediastinal silhouette: Stable. Other: No acute osseous or upper abdominal finding. IMPRESSION: Small bilateral pleural effusions versus chronic pleural scarring. Otherwise, no acute cardiopulmonar y process. Reviewed, dictated and finalized at location K. EXIA TEACHER IMPRESSION: Small bilateral pleural effusions versus chronic pleural scarring. Otherwise, n o acute cardiopulmonary process.
--- NOTE | ~2023-03-16 | CT_ITS ---
EXAMINATION: CT chest abdomen pelvis w con DATE: 03/18/2023 11:50 INDICATION: Severe anemia. Acute hypoxic respiratory failure. TECHNIQUE: Computed tomography (CT) of the chest, abdomen, and pelvis was performed with 100 mL Omnip aque 350 intravenous contrast. Automated exposure control and iterative reconstruction technique were employed. The dose-length product was 834.25 mGy-cm. COMPARISON: Chest CT 03/03/23, 02/18/2022, CT abdomen 04/02/2017 FINDINGS: CHEST CT: There are small pleural effusions. There is dependent atelectasis bilaterally. Calcified right hilar lymph nodes are consistent with old granulomatous disease. Cardiomegaly is noted. There are coronary artery calcifications. No pericardial effusion. There is chronic mild mediastinal lymphadenopathy, li sheila reactive. There are changes of right mastectomy. There is mild thoracic spondylosis. ABDOMEN/PELVIS CT: The liver is normal. There are changes of cholecystectomy. The common duct is dilated to 14 mm, incre ased from 12 mm on 04/02/17, likely not clinically significant given the recent normal liver function tests. The spleen, pancreas, adrenal glands, and kidneys are normal. There are no dilated loops of gerald wel. The appendix is normal. Aortic atherosclerosis is noted. There are no pathologically enlarged ly mph nodes. There is no free intraperitoneal fluid. There is moderate lumbar spondylosis. IMPRESSION: 1. Small pleural effusions. Reviewed, dictated and finalized at location A. TIZER IMPRESSION: 1. Small pleural effusions.
[2023-03-16 17:19] VITALS: BP 120/54; PULSE 77; RESP 18; TEMP 36.6; O2SAT 98
--- NOTE | 2023-03-16 17:30 | ED.GENADULT ---
HPI - General Adult General Chief complaint: Recheck/Abnormal Lab/Rx <Bailey Zendejas June, WE[employer]HER [employer]OY - Last Filed: 03/16/23 17:33> Stated complaint: abnormal labs <Bailey Zendejas June, WEIGHER [employer]OY - Last Filed: 03/16/23 17:33> Time Seen by Provider: 03/16/23 18:28 <Bailey Zendejas June, WE[employer]HER [employer]OY - Last Filed: 03/16/23 17:33> History of Present Illness HPI narrative: Focused HPI: 1725 Tatianna Bailey is an 87 y/o female who presents with reports of living in an a rehab facility and had routine labs drawn a few days ago and her hgb was 8 and today it was rechecked and it was 4 something. Patient denies abdominal pain/ she states she had black tarry stools but she relates this to the iron supplement. Denies vomiting but states she does feel nauseated. Denies fevers/ recent illness GENERAL: Well-appearing, well-nourished, and in no acute distress. HEAD: Normocephalic, atraumatic. CHEST: Clear to auscultation. ?No respiratory distress. HEART: Regular rate and rhythm.? NEURO: ?Alert and oriented x3. Patient screened in triage and initial orders placed.? ?Additional care and disposition to be based upon?diagnostic testing and treatment. <Bailey Zendejas June, - Last Filed: 03/16/23 17:33> Focused HPI: Tatianna Bailey is an 87 y/o female who presents with reports of living in an a rehab facility and had routine labs drawn a few days ago and her hgb was 8 and today it was rechecked and it was 4 something. Patient denies abdominal pain/ she states she had black tarry stools but she relates this to the iron supplement. Denies vomiting but states she does feel nauseated. Denies fevers/ recent illness GENERAL: Well-appearing, well-nourished, and in no acute distress. HEAD: Normocephalic, atraumatic. CHEST: Clear to auscultation. ?No respiratory distress. HEART: Regular rate and rhythm.? NEURO: ?Alert and oriented x3. Patient screened in triage and initial orders placed.? ?Additional care and disposition to be based upon?diagnostic testing and treatment. <Johanny Sheffield PA-C - Last Filed: 03/16/23 21:23> Related Data Home medications: Home Medications Medication Instructions Recorded Confirmed diltiazem HCl 120 mg 120 mg PO DAILY 02/25/22 03/03/23 tablet,extended release 24 hr (Cardizem LA) metoprolol succinate 50 mg 50 mg PO DAILY 07/18/22 03/03/23 tablet,extended release 24 hr azelastine 137 mcg (0.1 %) nasal 2 spray intranasal BID PRN Allergy 01/26/23 03/03/23 spray aerosol Symptoms bumetanide 2 mg tablet 1 mg PO DAILY 01/26/23 03/03/23 ferrous sulfate 324 mg (65 mg 324 mg PO EVERY OTHER DAY 01/26/23 03/03/23 iron) tablet,delayed release exemestane 25 mg tablet 25 mg PO DAILY 01/27/23 03/03/23 melatonin 5 mg tablet 5 mg PO PRN PRN INSOMNIA 03/03/23 03/03/23 <Bailey Zendejas June, WE[employer]HER [employer]OY - Last Filed: 03/16/23 17:33> Allergies/adverse reactions: Allergies Allergy/AdvReac Type Severity Reaction Status Date / Time lisinopril Allergy Intermediate Hives Verified 01/01/23 11:11 codeine Allergy Unknown Unknown- Verified 01/01/23 11:11 UNABLE TO RECAL <Bailey Zendejas June, WE[employer]HER [employer]OY - Last Filed: 03/16/23 17:33> Review of Systems Review of Systems: CONSTITUTIONAL: Denies fever CARDIOVASCULAR: Denies chest pain RESPIRATORY: Denies dyspnea. GASTROINTESTINAL: Denies abdominal pain, nausea, vomiting, or diarrhea. NEUROLOGIC: Reports generalized weakness. <Johanny Sheffield PA-C - Last Filed: 03/16/23 21:23> All systems reviewed & are unremarkable except as noted in HPI and below <Johanny Sheffield PA-C - Last Filed: 03/16/23 21:23> COUNT INCLUDES THE [facility] Past Medical History Medical History: Medical History Adenomatous colon polyp Degenerative arthritis of knee, bilateral Diastolic dysfunction Diastolic dysfunction Estrogen receptor positive status (ER+) Iron deficiency anemia due to chronic blood loss 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, estrogen recept
[2023-03-16 17:39] LABS: Basophils Percent Auto 0.3 % (0.2-1.2); Eosinophils Absolute Auto 0.1 K/mm3 (0-0.3); Eosinophils Percent Auto 0.7 % (0-4.4); Immature Granulocyte Absolute 0.11 K/mm3 (0.00-0.031); Immature Granulocyte Percent A 0.8 % (0-0.5); Lymphocytes Absolute Auto 3.42 K/mm3 (0.9-3.2); Lymphocytes Percent Auto 24.6 % (18.3-44.2); Mean Corpuscular HGB Conc 30.8 g/dl (32-36); Mean Corpuscular Hemoglobin 27.3 pg (26-34); Mean Corpuscular Volume 88.6 fl (80-100); Mean Platelet Volume 10.2 fl (7.4-10.4); Monocytes Absolute Auto 0.8 K/mm3 (0.1-0.6); Monocytes Percent Auto 5.9 % (2.6-8.5); Neutrophils Absolute Auto 9.4 K/mm3 (1.3-6.7); Neutrophils Percent Auto 67.7 % (45.5-73.1); Nucleated Red Blood Cells Perc 0.2 % (0.0-0.2); Platelet Count Result 285 k/mm3 (150-375); Red Cell Distribution Width 18.8 % (11.5-14.5); White Blood Count 13.9 K/mm3 (4.5-10.0)
[2023-03-16 17:46] LABS: Hematocrit 19.5 % (37.0-47.0)
[2023-03-16 17:50] LABS: Alanine Aminotransferase 13 U/L (6-35); Albumin Level 3.3 g/dL (3.5-5.1); Alkaline Phosphatase 63 U/L (38-126); Anion Gap 7 mmol/L (8-16); Aspartate Amino Transferase 22 U/L (14-36); Bilirubin,Total 0.3 mg/dL (0.2-1.3); Blood Urea Nitrogen 19 mg/dL (7-17); Calcium 8.6 mg/dL (8.4-10.2); Carbon Dioxide 27 mmol/L (22-30); Chloride 94 mmol/L (98-107); Estimated CRCL calculation 35 ml/min; Estimated Glomerular Filt Rate 53; Glucose 108 mg/dL (65-110); Potassium 3.5 mmol/L (3.4-5.0); Sodium 128 mmol/L (137-145)
[2023-03-16 17:54] LABS: INR 1.3; Prothrombin Time 16.5 Seconds (11.1-14.7)
[2023-03-16 17:55] LABS: Partial Thromboplastin Time 38.1 SECONDS (22.3-36.8)
[2023-03-16] MEDS: PANTOPRAZOLE SODIUM IV 40 MG VIAL 80 MG IV PUSH (19:33)
[2023-03-16 20:00] VITALS: BP 106/50; PULSE 67; RESP 17; O2SAT 100
[2023-03-16 20:02] VITALS: O2SAT 100
--- NOTE | 2023-03-16 20:15 | PM.IMHP ---
H&P: HPI History of Present Illness Date/Time: 03/16/23 20:15 Chief Complaint: abnormal lab work Narrative: this is an 87-year-old female with past medical history significant for pulmonary embolism, did vent thrombosis, atrial fibrillation, COPD/ emphysema, patient had been recently discharged from [facility] after being treated for pulmonary embolism discharge on no vessel anticoagulation returns today after she was found to have a hemoglobin of 5 patient has been having dark stools as well. Denies hematemesis, coffee-ground emesis or bright red blood per rectum. Patient is a Jehovah Witness and refuses blood products. EXAMINATION:? XR chest 2V Exam Date/Time:? 03/16/2023 18:55 [employer] HISTORY: weakness ? Comparison:? 03/05/2023. RESULT: Lines, tubes, and devices:? None. Lungs and pleura:? Senescent/emphysematous change. No focal consolidation or pneumothorax. Mild bilateral posterior costophrenic angle blunting. Cardiomediastinal silhouette:? Stable. Other:? No acute osseous or upper abdominal finding. ? IMPRESSION: Small bilateral pleural effusions versus chronic pleural scarring. Otherwise, no acute cardiopulmonary process. Review of Systems Review of Systems: low hemoglobin Constitutional: Constitutional: Denies chills, Denies fatigue, Denies fever(s), Denies malaise, Denies night sweats and Denies weakness Eyes: Eyes: Denies change in vision ENT: Denies bleeding gums, Denies dysphagia, Denies vertigo, Denies dizziness and Denies odynophagia Cardiovascular: Cardiovascular: Denies chest pain, Denies radiating jaw, neck or arm pain and Denies palpitations Respiratory: Respiratory: Denies chest congestion, Denies cough, Denies excessive phlegm production and Denies dyspnea Gastrointestinal: Gastrointestinal: Denies abdominal pain, Reports melena, Denies hematochezia, Denies coffee ground emesis, Denies dyspepsia, Denies diarrhea, Denies nausea and Denies vomiting Genitourinary: Genitourinary: Denies dysuria Musculoskeletal: Musculoskeletal: Denies arthralgias Integumentary/Breasts: Skin/Breast: Denies rash Neurologic: Denies focal weakness and Denies Sensory deficit (Neuro) Psychiatric: Psychiatric: Reports no additional psychiatric complaints and Reports as per HPI Endocrine: Endocrine: Denies cold intolerance, Denies flushing, Denies heat intolerance, Denies polyphagia, Denies polydipsia and Denies palpitations Hematologic/Lymphatic: Hematologic/Lymphatic: Reports as per HPI Allergic/Immunologic: Allergic/Immunologic: Reports no additional allergic/immunologic complaints and Reports as per HPI PMFSH Past Medical History Medical History Adenomatous colon polyp Degenerative arthritis of knee, bilateral Diastolic dysfunction Diastolic dysfunction Estrogen receptor positive status (ER+) Iron deficiency anemia due to chronic blood loss 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, estrogen receptor positive Osteoarthritis of right knee (Unknown) Port-A-Cath in place (~2018) Surgical History Surgical History History of hernia repair History of right knee surgery History of right mastectomy Family History Family History Father Family history of diabetes mellitus in first degree relative Family history of coronary artery disease Patient's father is in good health Mother Family history of lung cancer Sibling Family history of lung cancer Family history of malignant neoplasm of brain, Onset Age: 60 Other Diabetes mellitus Family history of cardiovascular disease Family history of kidney disease Social History Social History Social History: Surrogate medical decision maker: Urbano Bailey, son. Code status: Full code. Smoking packs per day: 0.5
[2023-03-16 20:18] VITALS: BP 113/49; PULSE 69; RESP 16; O2SAT 100
[2023-03-16 20:19] VITALS: BP 113/49; PULSE 78; RESP 20; O2SAT 100
[2023-03-16 22:01] VITALS: BMI 28.3
--- NOTE | 2023-03-16 22:08 | ADMGEN ---
This patient, Tatianna Bailey, was admitted to 3 Med Surg Room 320-01 at 2155. Patient/family oriented to hospital policies and general routines including ID bracelet, bed and alarms, visiting hours, pain management, procedures, bathroom and other care routines, personal items, smoking policy, room service/diet, and visiting hours. Information on how to activate the Rapid Response Team has been discussed. Patient/Family are encouraged to report perceived risks to care and to ask questions if they do not understand what they are told or what they should do.
[2023-03-16 22:18] VITALS: BP 129/46; PULSE 73; RESP 16; TEMP 36.3; O2SAT 98; BMI 29.0
[2023-03-16 23:54] LABS: Hematocrit 17.1 % (37.0-47.0); Hemoglobin 5.2 g/dL (12.0-15.0)
[2023-03-17] VITALS (17 sets, daily range): BP systolic 109–147; BP diastolic 45–52; PULSE 73–100; RESP 16–22; TEMP 36.3–37; O2SAT 95–100
[2023-03-17] MEDS: SODIUM CHLORIDE 3% 500 ML 30 ML IV CONT (03:34)
[2023-03-17 06:50] LABS: Hematocrit 15.9 % (37.0-47.0); Hemoglobin 4.8 g/dL (12.0-15.0)
--- NOTE | 2023-03-17 07:40 | PC.NURSE ---
This RN notified of critical lab value, 4.8 Hgb.
[2023-03-17 08:13] LABS: Anion Gap 4 mmol/L (8-16); Blood Urea Nitrogen 17 mg/dL (7-17); Calcium 7.9 mg/dL (8.4-10.2); Carbon Dioxide 29 mmol/L (22-30); Chloride 98 mmol/L (98-107); Estimated CRCL calculation 40 ml/min; Estimated Glomerular Filt Rate 59; Glucose 94 mg/dL (65-110); Potassium 3.1 mmol/L (3.4-5.0); Sodium 131 mmol/L (137-145)
[2023-03-17] MEDS: IPRATROPIUM 0.5 MG/ALBUTEROL SULFATE 2.5 MG AMPUL.NEB 3 ML INHALATION ×3 (08:30→20:07)
--- NOTE | 2023-03-17 08:30 | PC.NURSE ---
MD came to the floor to evaluate and discuss plan of care with patient and visitor at bedside. MD would like the patient to be moved to the IMU. MD also orders that Normal Saline @ 200ml/hr be started. also orders a PRN breathing treatment for this patient. This RN contacted Respiratory regarding this order.
--- NOTE | 2023-03-17 09:00 | PM.IMPN ---
Progress Note: A&P Assessment and Plan (1) Acute blood loss anemia: Code(s): D62 - Acute posthemorrhagic anemia Status: Acute (2) GI bleed: Qualifiers: GI bleed type/associated pathology: melena Qualified Code(s): K92.1 - Melena Code(s): K92.2 - Gastrointestinal hemorrhage, unspecified Status: Acute (3) Chronic anticoagulation: Code(s): Z79.01 - intermediate manager (current) use of anticoagulants Status: Acute (4) Pulmonary embolism: Qualifiers: Pulmonary embolism type: multiple subsegmental (without acute cor pulmonale) Qualified Code(s): I26.94 - Multiple subsegmental pulmonary emboli without acute cor pulmonale Code(s): I26.99 - Other pulmonary embolism without acute cor pulmonale Status: Acute (5) Chronic hyponatremia: Code(s): E87.1 - Hypo-osmolality and hyponatremia Status: Chronic (6) COPD exacerbation: Code(s): J44.1 - Chronic obstructive pulmonary disease with (acute) exacerbation Status: Acute (7) Hypokalemia: Code(s): E87.6 - Hypokalemia Status: Acute Plan 87-year-old female with a history of COPD/asthma, diastolic dysfunction, history of breast cancer, iron deficiency anemia. She was admitted to [facility] to twice in the past month. First time for RSV and acute respiratory failure. The 2nd time with shortness of breath and bilateral lower extremity edema and was only discharged 10 days ago to rehab. She you was found to have bilateral DVT and bilateral PE and was started on Eliquis. At the [facility] she reports her hemoglobin was low so her Eliquis has been held for about a week already. Still, melena persisted and was worse just prior to admission. In the ER hemoglobin was found to be 6. She was admitted on 03/16 for acute on chronic anemia although did not receive any treatment as she refused due to her anabaptist as a Religious. #Acute on chronic anemia/upper GI bleed suspected -discussion of over 30 minutes help with the Religious hospital liaison Victor M along with nurse Glory and multiple other nursing students. The patient is competent in her decisions and is adamant she refuses blood or blood products or plasma products. She has been educated on and the likely outcome of further deterioration if she continues to bleed and possibility of and she acknowledges. -they have requested Epogen and iron infusion. I let them know the affects of this would take many days and is not emergent treatment. Heme oncology has been consulted, we appreciate their assistance. -patient and Gnosticist liaison request transfer to [facility]. I let them know there is no additional treatment [facility] would be able to offer them aside from may be blood fractions which the patient is okay receiving. Will make a call out to request transfer. In the meantime, awaiting communication from preparation department supervisor on the availability of blood fractions although I have been told we do not have that. Pharmacy does not have antidote for Eliquis, at any rate she has not taken apixaban for a week. -use pediatric tubes for blood draws. Bed rest. Ensure 2 peripheral IVs are patent. Hemoglobin checked Q 6 hours along with lactate -normal saline with 40 mEq of potassium at 200 cc/hour. Give 1 time dose albumin 50 g -GI consulted from ER. Awaiting consultation still. Have made the patient NPO. Switched Protonix 40 mg IV q.day to b.i.d. while it appears she has an upper GI bleed and may benefit from endoscopy the risk of going under anesthesia in her condition is very high. She is undecided, will allow GI to discuss with her. -Admitted with a hemoglobin of 6. It is now 4.8. She is currently stable although blood pressure is trending down. Dr. Tobar poultry farmworker is aware. The patient on multiple occasions has considered her options and continues to refuse blood products or plasma products and also wants to be full code. #A
[2023-03-17] MEDS: ALBUMIN HUMAN 25% 25 GM/100 ML 200 ML IVPB (10:40)
[2023-03-17] MEDS: PANTOPRAZOLE SODIUM IV 40 MG VIAL IV PUSH ×2 (10:41→21:13)
[2023-03-17] MEDS: SERTRALINE HCL 50 MG TABLET 150 MG PO (10:43)
[2023-03-17] MEDS: SODIUM CHLORIDE 0.9% IV 1,000 ML 200 ML (10:56)
[2023-03-17 11:47] LABS: Procalcitonin 0.1 ng/mL
[2023-03-17 12:03] LABS: Iron 28 ug/dL (37-170)
[2023-03-17 12:12] LABS: Percent Iron Saturation 11 % (20-50)
--- NOTE | 2023-03-17 12:21 | PM.CNGS ---
Assessment and Plan Assessment and plan (1) Anemia: Qualifiers: Anemia type: unspecified type Qualified Code(s): D64.9 - Anemia, unspecified Code(s): D64.9 - Anemia, unspecified Status: Acute Assessment and Plan: Profound anemia with a hemoglobin as low as 4.8 this morning with a suspected GI bleed. She was recently diagnosed with bilateral DVTs/PE, which is the reason for her anticoagulation. Eliquis now on hold. We have been consulted for IVC filter placement. She is Mormon and is refusing blood products. We discussed with the patient that although IVC filter placement would be indicated, we would recommend to hold off on proceeding with the procedure until her anemia improves as this is not emergent. There is also a possibility of her being transferred, which we discussed that the IVC filter could also be placed at the other facility if she is transferred before her anemia improves. We will continue to follow along to decide on appropriate timing of the procedure. (2) GI bleed: Qualifiers: GI bleed type/associated pathology: melena Qualified Code(s): K92.1 - Melena Code(s): K92.2 - Gastrointestinal hemorrhage, unspecified Status: Acute Assessment and Plan: GI consulted. (3) Pulmonary embolism: Qualifiers: Pulmonary embolism type: multiple subsegmental (without acute cor pulmonale) Qualified Code(s): I26.94 - Multiple subsegmental pulmonary emboli without acute cor pulmonale Code(s): I26.99 - Other pulmonary embolism without acute cor pulmonale Status: Acute Assessment and Plan: Eliquis on hold and anticoagulation now contraindicated. See plan above. (4) DVT (deep venous thrombosis): Code(s): I82.409 - Acute embolism and thrombosis of unspecified deep veins of unspecified lower extremity Status: Acute (5) Acute respiratory failure with hypoxia: Code(s): J96.01 - Acute respiratory failure with hypoxia Status: Acute (6) EVELYN (obstructive sleep apnea): Code(s): G47.33 - Obstructive sleep apnea (adult) (pediatric) Status: Chronic Plan I have discussed the patient's case and plan of care with Dr. Vega. Thank you for allowing us to see the patient in consultation and we will continue to follow along with you. History of Present Illness Consult details Consult date: 03/17/23 Reason for consult: other (IVC filter placement) Requesting physician: Johanny Sheffield PA-C Narrative: This is an 87 year old woman with medical problems, including a recent hospitalization for pulmonary embolism and DVT that was treated with anticoagulation. She was discharged to a rehab facility on Eliquis. She reports recently feeling fatigued and having outpatient labs that revealed anemia. She also reports black tarry stools, but was relating this to the iron she had been taking. She was brought into the ER for evaluation of her anemia. Labs showed her hemoglobin at 6.0 and hematocrit 19.5 yesterday. She has been admitted to the hospitalist. To note, she is a Methodist and has been refusing blood products. The hospitalist has had conversations with the patient regarding transfusions and options to treat her anemia. The hospitalist is working on transferring the patient possibly to [facility] for blood fractions. Her Eliquis has been stopped. GI has been consulted for anemia/GI bleed. Serial H&H shows her hemoglobin down to 4.8 this morning. Our service has been consulted for IVC filter placement. In review of her chart she had a venous Doppler study on 03/04/2023 that showed bilateral below the knee DVTs. Findings of a right peroneal vein DVT and left popliteal, posterior tibial, and peroneal vein DVTs. Hematology has also been consulted. She is not sure when she last took her Eliquis at the rehab facility, but thought this could have been yesterday. Nursing is calling to confirm last dose. Review of Systems Re
[2023-03-17] MEDS: KCL 40 MEQ/0.9% SOD CHL 1,000 ML 200 ML IV CONT ×2 (12:29→16:31)
[2023-03-17 12:32] LABS: Anion Gap 7 mmol/L (8-16); Blood Urea Nitrogen 17 mg/dL (7-17); Calcium 8.3 mg/dL (8.4-10.2); Carbon Dioxide 25 mmol/L (22-30); Chloride 100 mmol/L (98-107); Estimated CRCL calculation 40 ml/min; Estimated Glomerular Filt Rate 59; Glucose 95 mg/dL (65-110); Magnesium 2.1 mg/dL (1.6-2.3); Potassium 3.2 mmol/L (3.4-5.0); Sodium 132 mmol/L (137-145)
[2023-03-17 13:14] LABS: Folic Acid 6.3 ng/mL (2.76->20)
--- NOTE | 2023-03-17 15:20 | PC.NURSE ---
On 03/17/23, the student, Ana Layton, provided care and completed [facility] documentation on this patient. I have reviewed the student's documentation and agree with the findings.
[2023-03-17] MEDS: CYANOCOBALAMIN INJ 1,000 MCG/ML VIAL 1000 MCG IM (15:56)
--- NOTE | 2023-03-17 16:24 | WPDGICN ---
Assessment and Plan Assessment and plan (1) Acute on chronic anemia: Code(s): D64.9 - Anemia, unspecified Status: Acute Assessment and Plan: anemia worsened after blood thinner she had colonoscopy less than 1 year ago and EGD just few months ago, no signs of bleeding only mild gastritis wonder if could have AVM she also saw hematology (history of breast cancer) and recently PE, blood thinner now on hold recommend to continue ppi daily, monitor for obvious signs of bleeding, no need to repeat colonoscopy, probably only EGD +/- small bowel capsule endoscopy later as outpatient will be difficult to resume anticoagulation since she has significant anemia and most importantly she does not want to get transfusion iv iron now, consult hematology (2) Pulmonary embolism: Qualifiers: Pulmonary embolism type: multiple subsegmental (without acute cor pulmonale) Qualified Code(s): I26.94 - Multiple subsegmental pulmonary emboli without acute cor pulmonale Code(s): I26.99 - Other pulmonary embolism without acute cor pulmonale Status: Acute Assessment and Plan: blood thinner on hold (3) Chronic anticoagulation: Code(s): Z79.01 - half-way (current) use of anticoagulants Status: Acute (4) History of breast cancer: Code(s): Z85.3 - Personal history of malignant neoplasm of breast Status: Acute Assessment and Plan: seeing hematology as outpatient GI Consult Note Consult date/time: 03/17/23 16:24 Reason for consult: chronic anemia, use of blood thinner HPI: Tatianna Bailey is a 87 year old female with h/o COPD, Jehova's witness, chronic anemia on oral iron by Dr Enciso and Rt breast cancer, recent diagnosed with PE/DVT started on eliquis. She has been feeling tired and blood work revealed worsening anemia with hgb 4.8, she normally has dark stools because use of iron but no overt gib. She had colonoscopy 03/2022 with mild diverticulosis and small polyps removed, no colitis, then had EGD 07/2022 with mild gastritis and esophageal ring that was dilated up to 20 mm balloon. Unfortunately she refuses to get blood transfusion. Blood thinner on hold now. Review of Systems Constitutional: Constitutional: Reports lethargy Eyes: Eyes: Denies blurry vision ENT: Reports Normal hearing present Cardiovascular: Cardiovascular: Denies chest pain Respiratory: Respiratory: Reports dyspnea on exertion Gastrointestinal: Gastrointestinal: Denies abdominal pain Genitourinary: Genitourinary: Denies urinary urgency Musculoskeletal: Musculoskeletal: Denies neck pain Integumentary/Breasts: Skin/Breast: Denies rash Neurologic: Denies confusion Psychiatric: Psychiatric: Denies anxiety [facility] Past Medical History Medical History (Updated 03/17/23 @ 16:31 by Jakub Jansen MD) Acute on chronic anemia Adenomatous colon polyp Degenerative arthritis of knee, bilateral Diastolic dysfunction Diastolic dysfunction Estrogen receptor positive status (ER+) Iron deficiency anemia due to chronic blood loss 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, estrogen receptor positive Osteoarthritis of right knee (Unknown) Port-A-Cath in place (~2018) Surgical History Surgical History History of hernia repair History of right knee surgery History of right mastectomy Family History Family History Father Family history of diabetes mellitus in first degree relative Family history of coronary artery disease Patient's father is in good health Mother Family history of lung cancer Sibling Family history of lung cancer Family history of malignant neoplasm of brain, Onset Age: 60 Other Diabetes mellitus Family history of cardiovascular disease Family history of kidney disease Social History Social History (Reviewed 03/17/23 @ 12:22
[2023-03-17] MEDS: IRON SUCROSE COMPLEX 500 MG in SODIUM CHLORIDE 0.9% IV 250 ML 78.57 MG IVPB (16:27)
--- NOTE | 2023-03-17 16:33 | PDONCCN ---
HPI - Date of Consult Date/Time: 03/17/23 16:33 Requesting Physician: Ellen Gutierrez MD Primary Care Provider: Mark العلي, DO - Consult Narrative Reason for consult: Profound anemia Narrative: Tatianna Baliey is a 87 year old female with history of stage II breast cancer along with anemia last seen in the office in October 2022. Patient was diagnosed with bilateral lower extremity DVT and pulmonary embolism on March 03, 2023 when she was admitted to the hospital with shortness of breath and was started on Eliquis. Patient now came into the hospital from the rehab with she started feeling quite lightheaded tired and fatigued in labs were drawn that showed hemoglobin of 6.0. Hemoglobin dropped to 4.8 today. Patient is a Jehovah Witness and would not take any blood transfusions. She denies any melena hematochezia but has have dark stool due to the iron supplement. Stool was checked in the ER for bleeding and came back positive. She denies any other complaints. Review of Systems - Review of Systems All systems reviewed & are unremarkable except as noted in HPI and bel - Neurologic Denies vertigo, Denies focal weakness, Denies sensory deficit, Denies weakness PMFSH Medical History: Medical History (Last Updated 03/17/23 @ 16:31 by Jakub Jansen MD) Acute on chronic anemia Adenomatous colon polyp Degenerative arthritis of knee, bilateral Diastolic dysfunction Diastolic dysfunction Estrogen receptor positive status (ER+) Iron deficiency anemia due to chronic blood loss 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, estrogen receptor positive Osteoarthritis of right knee Onset Date: Unknown Port-A-Cath in place Onset Date: ~2017 Surgical History: Surgical History (Last Reviewed 03/17/23 @ 12:22 by DAVID Garrido) History of hernia repair History of right knee surgery History of right mastectomy Family History: Family History (Last Reviewed 03/17/23 @ 12:22 by DAVID Garrido) Father Family history of diabetes mellitus in first degree relative Family history of coronary artery disease Patient's father is in good health Mother Family history of lung cancer Sibling Family history of lung cancer Family history of malignant neoplasm of brain, Onset Age: 60 Other Diabetes mellitus Family history of cardiovascular disease Family history of kidney disease - Social History Social History: Social History (Last Reviewed 03/17/23 @ 12:22 by DAVID Garrido) Alcohol Use: Alcohol intake: former Drinks per week: 1 Alcohol use details: DRINK Substance Use: Substance use: former Substance use type: does not use Others: Spiritual care concerns: Yes Spiritual care concerns comment: Emily Witness Agree to blood products: No Living Arrangements: Living arrangements: with family Oppucation/Education: Occupation/Education: retired Smoking Status: Smoking status: Never smoker Second hand tobacco smoke exposure: No Smoking Pack-years: Smoking packs per day: 0.5 Smoking cigarettes per day: 10.0 Years smoked: 20 Smoking pack-years: 10.00 Comments: Additional smoking assessment comments: STATES <PK/DAY/3YRS Social Determinants of Health: Do You Feel Safe in your Home?: Yes Has the Lack of Transportation Kept You From Medical Appointments or From Getting Medications?: No Within the Past 12 Months, Were You Worried Whether Your Food Would Run Out Before You Got Money to Buy More?: Never True What is Your Housing Situation Today?: I Have Housing Are You Worried That in the Next 2 Months, You May Not Have Your Own Housing to Live In?: No Do You Have Trouble Paying Your Heating Or Electricity Bill?: No Do You Have Trouble Paying For Medicines?: No Are You Currently Unemployed and Looking for Work?: No Highest Level of Education
[2023-03-17] MEDS: FLUTICASONE PROPIONATE 0.05% NA SPR 16 GM BTL (*BKC) 2 SPRAY NASAL (21:13)
[2023-03-17] MEDS: MELATONIN 5 MG TABLET PO (21:14)
[2023-03-18] VITALS (22 sets, daily range): BP systolic 118–134; BP diastolic 44–54; PULSE 82–124; RESP 16–30; TEMP 36.6–37.3; O2SAT 93–100
[2023-03-18] MEDS: IPRATROPIUM 0.5 MG/ALBUTEROL SULFATE 2.5 MG AMPUL.NEB 3 ML INHALATION ×4 (03:22→20:40)
[2023-03-18 07:11] LABS: Basophils Percent Auto 0.2 % (0.2-1.2); Eosinophils Absolute Auto 0.1 K/mm3 (0-0.3); Eosinophils Percent Auto 0.7 % (0-4.4); Immature Granulocyte Percent A 1.2 % (0-0.5); Lymphocytes Absolute Auto 1.43 K/mm3 (0.9-3.2); Lymphocytes Percent Auto 17.1 % (18.3-44.2); Mean Corpuscular HGB Conc 30.7 g/dl (32-36); Mean Corpuscular Hemoglobin 27.8 pg (26-34); Mean Corpuscular Volume 90.7 fl (80-100); Mean Platelet Volume 9.9 fl (7.4-10.4); Monocytes Absolute Auto 0.6 K/mm3 (0.1-0.6); Monocytes Percent Auto 7.4 % (2.6-8.5); Neutrophils Absolute Auto 6.1 K/mm3 (1.3-6.7); Neutrophils Percent Auto 73.4 % (45.5-73.1); Nucleated Red Blood Cells Perc 0.5 % (0.0-0.2); Platelet Count Result 179 k/mm3 (150-375); Red Blood Count 1.51 M/mm3 (4.2-5.4); Red Cell Distribution Width 19.9 % (11.5-14.5); White Blood Count 8.4 K/mm3 (4.5-10.0)
[2023-03-18 07:26] LABS: Anion Gap 3 mmol/L (8-16); Blood Urea Nitrogen 12 mg/dL (7-17); Calcium 7.9 mg/dL (8.4-10.2); Carbon Dioxide 25 mmol/L (22-30); Chloride 106 mmol/L (98-107); Estimated CRCL calculation 45 ml/min; Estimated Glomerular Filt Rate > 60; Glucose 98 mg/dL (65-110); Magnesium 2.1 mg/dL (1.6-2.3); Sodium 134 mmol/L (137-145)
[2023-03-18 07:27] LABS: Hematocrit 13.7 % (37.0-47.0)
[2023-03-18 07:28] LABS: Hemoglobin 4.2 g/dL (12.0-15.0)
--- NOTE | 2023-03-18 08:32 | PM.IMPN ---
Progress Note: A&P Assessment and Plan (1) Acute blood loss anemia: Code(s): D62 - Acute posthemorrhagic anemia Status: Acute (2) GI bleed: Qualifiers: GI bleed type/associated pathology: melena Qualified Code(s): K92.1 - Melena Code(s): K92.2 - Gastrointestinal hemorrhage, unspecified Status: Acute (3) Chronic anticoagulation: Code(s): Z79.01 - long term care administrator (current) use of anticoagulants Status: Acute (4) Pulmonary embolism: Qualifiers: Pulmonary embolism type: multiple subsegmental (without acute cor pulmonale) Qualified Code(s): I26.94 - Multiple subsegmental pulmonary emboli without acute cor pulmonale Code(s): I26.99 - Other pulmonary embolism without acute cor pulmonale Status: Acute (5) Chronic hyponatremia: Code(s): E87.1 - Hypo-osmolality and hyponatremia Status: Chronic (6) COPD exacerbation: Code(s): J44.1 - Chronic obstructive pulmonary disease with (acute) exacerbation Status: Acute (7) Hypokalemia: Code(s): E87.6 - Hypokalemia Status: Acute Plan 87-year-old female with a history of COPD/asthma, diastolic dysfunction, history of breast cancer, iron deficiency anemia. She was admitted to [facility] to twice in the past month. First time for RSV and acute respiratory failure. The 2nd time with shortness of breath and bilateral lower extremity edema and was only discharged 10 days ago to rehab. She you was found to have bilateral DVT and bilateral PE and was started on Eliquis. At the custodial she reports her hemoglobin was low so her Eliquis has been held for about a week already. Still, melena persisted and was worse just prior to admission. In the ER hemoglobin was found to be 6. She was admitted on 03/16 for acute on chronic anemia although did not receive any treatment as she refused due to her mosque as a [employer]. #Acute on chronic anemia/upper GI bleed suspected -discussion of over 30 minutes help with the [employer] hospital liaison Victor M along with nurse Glory and multiple other nursing students. The patient is competent in her decisions and is adamant she refuses blood or blood products or plasma products. She has been educated on and the likely outcome of further deterioration if she continues to bleed and possibility of and she acknowledges. -they have requested Epogen and iron infusion. I let them know the affects of this would take many days and is not emergent treatment. Heme oncology has been consulted, we appreciate their assistance. -patient and [facility] liaison request transfer to [facility]. I let them know there is no additional treatment [facility] would be able to offer them aside from may be blood fractions which the patient is okay receiving. Will make a call out to request transfer. In the meantime, awaiting communication from policy change clerks supervisor on the availability of blood fractions although I have been told we do not have that. Pharmacy does not have antidote for Eliquis, at any rate she has not taken apixaban for a week. -use pediatric tubes for blood draws. Bed rest. Ensure 2 peripheral IVs are patent. Hemoglobin checked Q 6 hours along with lactate -normal saline with 40 mEq of potassium at 200 cc/hour. Give 1 time dose albumin 50 g -GI consulted from ER. Awaiting consultation still. Have made the patient NPO. Switched Protonix 40 mg IV q.day to b.i.d. while it appears she has an upper GI bleed and may benefit from endoscopy the risk of going under anesthesia in her condition is very high. She is undecided, will allow GI to discuss with her. -Admitted with a hemoglobin of 6. It is now 4.8. She is currently stable although blood pressure is trending down. Dr. Tobar regulator assembler is aware. The patient on multiple occasions has considered her options and continues to refuse blood products or plasma products and also wants to be full code. On
[2023-03-18] MEDS: FERROUS SULFATE 325 MG TABLET DR 324 MG PO (09:00)
[2023-03-18] MEDS: BENZONATATE 100 MG CAPSULE PO ×3 (09:00→17:53)
[2023-03-18] MEDS: SERTRALINE HCL 50 MG TABLET 150 MG PO (09:01)
[2023-03-18] MEDS: PANTOPRAZOLE SODIUM IV 40 MG VIAL IV PUSH ×2 (09:01→20:25)
[2023-03-18] MEDS: FLUTICASONE PROPIONATE 0.05% NA SPR 16 GM BTL (*BKC) 2 SPRAY NASAL ×2 (09:01→20:32)
[2023-03-18 11:32] LABS: Influenza A QL RT-PCR Negative (Negative); Influenza B QL RT-PCR Negative (Negative); RSV RNA, RT-PCR Negative (Negative); SARS-CoV-2 RNA PCR Negative (Negative)
--- NOTE | 2023-03-18 12:12 | PM.PNGS ---
Progress Note: A&P Assessment and Plan (1) Acute on chronic anemia: Code(s): D64.9 - Anemia, unspecified Status: Acute Assessment and Plan: cont to slowly drop, will likely need transfer to tertiary care center given [employer] and need for alternative blood products (2) DVT (deep venous thrombosis): Code(s): I82.409 - Acute embolism and thrombosis of unspecified deep veins of unspecified lower extremity Status: Acute Assessment and Plan: continue to hold anticoagulation given bleeding, will need IVC filter once stabilized Subjective Subjective Date/Time Seen: 03/18/23 12:12 Interval history: no acute issues, H/H still dropping Review of Systems Review of Systems: All systems reviewed & are unremarkable except as noted in HPI and below Exam Const: General: cooperative, comfortable, no acute distress and ill appearing Resp: Auscultation: clear to auscultation bilaterally Cardio: Rate: regular rate Rhythm: regular rhythm GI: Inspection: normal to inspection and non-distended GI Palp: No abdominal tenderness and Yes Soft to palpation Objective Data Vital Signs Vital Signs: Vital Signs - 24 hr 03/17/23 13:19 03/17/23 13:27 03/17/23 14:00 Temperature 36.5 C Pulse Rate 86 83 91 Respiratory Rate 20 20 18 Blood Pressure 120/47 L Pulse Oximetry 100 Oxygen Delivery Oxygen Flow Rate 03/17/23 16:00 03/17/23 20:07 03/17/23 20:20 Temperature Pulse Rate 89 87 86 Respiratory Rate 20 20 Blood Pressure Pulse Oximetry Oxygen Delivery Oxygen Flow Rate 03/17/23 21:49 03/17/23 20:00 03/18/23 03:23 Temperature 37.0 C Pulse Rate 100 82 Respiratory Rate 22 H 20 Blood Pressure 147/52 H Pulse Oximetry 95 95 Oxygen Delivery Nasal Cannula Oxygen Flow Rate 3 03/18/23 03:33 03/18/23 03:38 03/18/23 01:10 Temperature Pulse Rate 84 84 87 Respiratory Rate 20 17 20 Blood Pressure Pulse Oximetry 96 93 Oxygen Delivery Autopap Autopap Oxygen Flow Rate 03/18/23 04:03 03/17/23 20:00 03/18/23 00:00 Temperature 36.6 C Pulse Rate 92 95 85 Respiratory Rate 22 H Blood Pressure 134/49 L Pulse Oximetry 100 Oxygen Delivery Oxygen Flow Rate 03/18/23 04:00 03/18/23 08:29 03/18/23 08:29 Temperature Pulse Rate 98 124 H Respiratory Rate 30 H Blood Pressure Pulse Oximetry 94 Oxygen Delivery Nasal Cannula Oxygen Flow Rate 2 03/18/23 08:38 03/18/23 08:00 03/18/23 08:00 Temperature Pulse Rate 112 H 104 H 112 H Respiratory Rate 28 H 28 H Blood Pressure Pulse Oximetry 94 Oxygen Delivery Nasal Cannula Oxygen Flow Rate 2 Intake/Output Intake/Output: Intake & Output 03/15/23 03/16/23 03/17/23 03/18/23 23:59 23:59 23:59 23:59 Intake Total 2395 75 Output Total 450 Balance 2395 -375 Meds/Results Medications: Active Medications Generic Name Dose Route Start Last Admin Trade Name Freq PRN Reason Stop Dose Admin Acetaminophen 325 mg 03/17/23 02:36 Acetaminophen 325 Mg Tablet PO Q6H PRN Pain and fever Albuterol 2 puff 03/17/23 09:00 Albuterol Sulfate (*Sp) Aerosol 1 Puff INHALATION QID NICK Albuterol/Ipratropium 3 ml 03/17/23 14:00 03/18/23 08:27 Ipratropium 0.5 Mg/Albuterol Sulfate 2.5 Mg Ampul.Neb 3 Ml INHALATION 3 ml Q6HRT NICK Administration Azelastine HCl 2 spray 03/17/23 02:36 Azelastine Hcl Nasal 0.1% 137 Mcg/Spr 30 Ml Btl NASAL Q12H PRN Allergy Symptoms Benzonatate 100 mg 03/18/23 09:00 03/18/23 09:00 Benzonatate 100 Mg Capsule PO 100 mg TID NICK Administration Diltiazem HCl 120 mg 03/17/23 09:00 03/17/23 10:31 Diltiazem Hcl Cd 120 Mg Cap.24hr PO Not Given DAILY NICK Ferrous Sulfate 324 mg 03/18/23 09:00 03/18/23 09:00 Ferrous Sulfate [address] PO 324 mg Q48H NICK Administration Fluticasone Propionate 2 spray 03/17/23 09:00 03/18/23 09:01
--- NOTE | 2023-03-18 14:01 | WPDGICN ---
Assessment and Plan Assessment and plan (1) Acute on chronic anemia: Code(s): D64.9 - Anemia, unspecified Status: Acute (2) DVT (deep venous thrombosis): Code(s): I82.409 - Acute embolism and thrombosis of unspecified deep veins of unspecified lower extremity Status: Acute Assessment and Plan: She had been started on Eliquis just 2 weeks ago and this probably is what contributed to her sudden drop in blood counts. She is now off the anticoagulant. Hopefully her blood counts will begin to increase. Unfortunately however she does need some anticoagulant because of her blood clots. (3) GI bleed: Qualifiers: GI bleed type/associated pathology: melena Qualified Code(s): K92.1 - Melena Code(s): K92.2 - Gastrointestinal hemorrhage, unspecified Status: Acute Assessment and Plan: Stools Hemoccult positive. There has been no change in the color or consistency of her bowel movements in fact she states that she has not had a bowel movement now for several days. I discussed with her the fact that she is not likely to have bleeding from her colon as it would be red. although she could have an upper gastrointestinal bleed she did not have any significant findings on her recent EGD. Capsule endoscopy would be appropriate but would have to be done in outpatient setting when the patient is ambulatory. Explain to the patient and the family that this is a insurance rule and not something that we can control. (4) Pulmonary embolism: Qualifiers: Pulmonary embolism type: multiple subsegmental (without acute cor pulmonale) Qualified Code(s): I26.94 - Multiple subsegmental pulmonary emboli without acute cor pulmonale Code(s): I26.99 - Other pulmonary embolism without acute cor pulmonale Status: Acute Assessment and Plan: This was found recently on CTA Two weeks ago Subsequently she was started on Eliquis. since then she has been in the rehab facility and was there that she was noted to be markedly anemic. (5) Asthma exacerbation: Qualifiers: Asthma severity: moderate Asthma persistence: persistent Qualified Code(s): J45.41 - Moderate persistent asthma with (acute) exacerbation Code(s): J45.901 - Unspecified asthma with (acute) exacerbation Status: Acute Assessment and Plan: She was just discharged a couple weeks ago after having been hospitalized with worsening of asthma. Pulmonary had her on BiPAP and had made adjustments to her CPAP settings. He apparently had bronchospasm also while she was hospitalized. She does use many inhalers. Plan I spoke to the family and the patient and also had spoken to anesthesia. Anesthesia Feels that she is extremely high risk and they would not sedate her for endoscopy. I agree with that opinion because her blood counts are so extremely low. Patient insists that she does not want blood transfusion, and I told her that we respect her decision. They have requested transfer to [facility] or [facility]. I believe that request has been placed, red did inform the family that even when the patient's are accepted at 1 of that her [facility], the normally not get transferred for 5 or more days. I will go ahead start her back on regular diet. GI Consult Note Consult date/time: 03/18/23 14:01 HPI: Tatianna Bailey is a 87 year old female who was admitted 2 days ago with profound anemia. She has been in rehabilitation center because of recent problems related to pulmonary embolism for which reason she has been anticoagulated. She also has obstructive sleep apnea, and history of breast cancer. apparently he was found have a hemoglobin of 8 when tested as an outpatient and when she came here was down to 4.8. This morning it is actually lower at 4.2. She has had no evidence of bleeding although stool Hemoccult was done which was positive. Her stool she states
[2023-03-18 15:02] LABS: Hemoglobin 4.5 g/dL (12.0-15.0)
[2023-03-18 15:03] LABS: Hematocrit 15.2 % (37.0-47.0)
--- NOTE | 2023-03-18 16:00 | PC.NURSE ---
Provider aware of Critical HGb results. Lab trending slightly upward.
[2023-03-18] MEDS: ACETAMINOPHEN 325 MG TABLET PO (20:24)
[2023-03-18] MEDS: MELATONIN 5 MG TABLET PO (20:25)
[2023-03-19] VITALS (18 sets, daily range): BP systolic 129–140; BP diastolic 49–59; PULSE 87–117; RESP 12–23; TEMP 36.4–37.4; O2SAT 92–99
[2023-03-19] MEDS: IPRATROPIUM 0.5 MG/ALBUTEROL SULFATE 2.5 MG AMPUL.NEB 3 ML INHALATION ×3 (07:26→21:18)
[2023-03-19 07:56] LABS: Basophils Percent Auto 0.2 % (0.2-1.2); Eosinophils Absolute Auto 0.2 K/mm3 (0-0.3); Eosinophils Percent Auto 2.6 % (0-4.4); Immature Granulocyte Absolute 0.13 K/mm3 (0.00-0.031); Immature Granulocyte Percent A 1.5 % (0-0.5); Lymphocytes Absolute Auto 1.76 K/mm3 (0.9-3.2); Lymphocytes Percent Auto 20.9 % (18.3-44.2); Mean Corpuscular HGB Conc 30.3 g/dl (32-36); Mean Corpuscular Hemoglobin 27.9 pg (26-34); Mean Corpuscular Volume 92.1 fl (80-100); Mean Platelet Volume 10.2 fl (7.4-10.4); Monocytes Absolute Auto 0.5 K/mm3 (0.1-0.6); Monocytes Percent Auto 6.2 % (2.6-8.5); Neutrophils Absolute Auto 5.8 K/mm3 (1.3-6.7); Neutrophils Percent Auto 68.6 % (45.5-73.1); Nucleated Red Blood Cells Absolute Auto 0.1 K/mm3 (0.0-0.012); Nucleated Red Blood Cells Perc 0.7 % (0.0-0.2); Platelet Count Result 210 k/mm3 (150-375); Red Blood Count 1.65 M/mm3 (4.2-5.4); White Blood Count 8.4 K/mm3 (4.5-10.0)
[2023-03-19 08:01] LABS: Hematocrit 15.2 % (37.0-47.0); Hemoglobin 4.6 g/dL (12.0-15.0)
[2023-03-19] MEDS: SERTRALINE HCL 50 MG TABLET 150 MG PO (08:11)
[2023-03-19] MEDS: BENZONATATE 100 MG CAPSULE PO ×3 (08:11→16:16)
[2023-03-19] MEDS: FLUTICASONE PROPIONATE 0.05% NA SPR 16 GM BTL (*BKC) 2 SPRAY NASAL ×2 (08:12→21:06)
[2023-03-19] MEDS: PANTOPRAZOLE SODIUM IV 40 MG VIAL IV PUSH ×2 (08:17→21:06)
[2023-03-19 08:29] LABS: Alanine Aminotransferase 9 U/L (6-35); Albumin Level 2.5 g/dL (3.5-5.1); Alkaline Phosphatase 58 U/L (38-126); Anion Gap 4 mmol/L (8-16); Aspartate Amino Transferase 16 U/L (14-36); Bilirubin,Total 0.2 mg/dL (0.2-1.3); Blood Urea Nitrogen 8 mg/dL (7-17); Calcium 8.3 mg/dL (8.4-10.2); Carbon Dioxide 24 mmol/L (22-30); Chloride 104 mmol/L (98-107); Estimated CRCL calculation 45 ml/min; Estimated Glomerular Filt Rate > 60; Glucose 98 mg/dL (65-110); Potassium 3.9 mmol/L (3.4-5.0); Sodium 132 mmol/L (137-145)
[2023-03-19 08:38] LABS: Magnesium 2.1 mg/dL (1.6-2.3)
--- NOTE | 2023-03-19 08:59 | PM.IMPN ---
Progress Note: A&P Assessment and Plan (1) Acute on chronic anemia: Code(s): D64.9 - Anemia, unspecified Status: Acute (2) DVT (deep venous thrombosis): Code(s): I82.409 - Acute embolism and thrombosis of unspecified deep veins of unspecified lower extremity Status: Acute (3) GI bleed: Qualifiers: GI bleed type/associated pathology: melena Qualified Code(s): K92.1 - Melena Code(s): K92.2 - Gastrointestinal hemorrhage, unspecified Status: Acute (4) Acute blood loss anemia: Code(s): D62 - Acute posthemorrhagic anemia Status: Acute (5) Pulmonary embolism: Qualifiers: Pulmonary embolism type: multiple subsegmental (without acute cor pulmonale) Qualified Code(s): I26.94 - Multiple subsegmental pulmonary emboli without acute cor pulmonale Code(s): I26.99 - Other pulmonary embolism without acute cor pulmonale Status: Acute Plan 87-year-old female with a history of COPD/asthma, diastolic dysfunction, history of breast cancer, iron deficiency anemia.? She was admitted to [facility] to twice in the past month.? First time for RSV and acute respiratory failure.? The 2nd time with shortness of breath and bilateral lower extremity edema and was only discharged 10 days ago to rehab.? She you was found to have bilateral DVT and bilateral PE and was started on Eliquis.? [facility] the [facility]iary she reports her hemoglobin was low so her Eliquis has been held for about a week already.? Still, melena persisted and was worse just prior to admission.? In the ER hemoglobin was found to be 6.? She was admitted on 03/16 for acute on chronic anemia although did not receive any treatment as she refused due to her mu-ism as a [employer]. #Acute on chronic anemia/upper GI bleed suspected -discussion of over 30 minutes help with the [employer] hospital liaison Victor M along with nurse Holder and multiple other nursing students.? The patient is competent in her decisions and is adamant she refuses blood or blood products or plasma products.? She has been educated on and the likely outcome of further deterioration if she continues to bleed and possibility of and she acknowledges. -they have requested Epogen and iron infusion.? I let them know the affects of this would take many days and is not emergent treatment.? Heme oncology has been consulted, we appreciate their assistance. -patient and [facility] liaison request transfer to [facility].? I let them know there is no additional treatment [facility] would be able to offer them aside from may be blood fractions which the patient is okay receiving.? Will make a call out to request transfer.? In the meantime, awaiting communication from wax room supervisor on the availability of blood fractions although I have been told we do not have that.? Pharmacy does not have antidote for Eliquis, at any rate she has not taken apixaban for a week. -use pediatric tubes for blood draws.? Bed rest.? Ensure 2 peripheral IVs are patent.? Hemoglobin checked Q 6 hours along with lactate -normal saline with 40 mEq of potassium at 200 cc/hour.? Give 1 time dose albumin 50 g -GI consulted from ER.? Awaiting consultation still.? Have made the patient NPO.? Switched Protonix 40 mg IV q.day to b.i.d. while it appears she has an upper GI bleed and may benefit from endoscopy the risk of going under anesthesia in her condition is very high.? She is undecided, will allow GI to discuss with her. -Admitted with a hemoglobin of 6.? It is now 4.8.? She is currently stable although blood pressure is trending down.? Dr. Tobar adjutant general is aware.? The patient on multiple occasions has considered her options and continues to refuse blood products or plasma products and also wants to be full code. On 03/18 her hemoglobin has now dropped to 4.2.? She request CT chest abdomen pelvis concerned there is a blood collection in her belly because she has not had a bowel m
--- NOTE | 2023-03-19 11:53 | PM.PNGS ---
Progress Note: A&P Assessment and Plan (1) Acute on chronic anemia: Code(s): D64.9 - Anemia, unspecified Status: Acute Assessment and Plan: Still low at 4.6 this am, complicated given Jain and refusal of blood products. Management per primary service, agree with transfer, she has been accepted to [facility] and possibly will have a bed today. (2) DVT (deep venous thrombosis): Code(s): I82.409 - Acute embolism and thrombosis of unspecified deep veins of unspecified lower extremity Status: Acute Assessment and Plan: Continue to hold anticoagulation, will need IVC filter once stabilized which can be done at [facility] once anemia improves Plan I have discussed the patient's case and plan of care with Dr. Vega. Subjective Subjective Date/Time Seen: 03/19/23 11:53 Patient reports: no new complaints Interval history: Patient seen today. No new complaints overnight. Hgb still at 4.6 this morning. Per nursing, she was accepted at [facility] and is awaiting bed placement. They spoke with [facility] today and they feel hopeful that she could have a bed for transfer today. Exam Const: General: comfortable and no acute distress GI: Inspection: non-distended GI Palp: Yes Soft to palpation, No Tenderness to palpation present (GI) and No Guarding due to palpation present (GI) Auscultation: normal bowel sounds Objective Data Vital Signs Vital Signs: Vital Signs - 24 hr 03/18/23 12:19 03/18/23 14:13 03/18/23 14:24 Temperature Pulse Rate 94 91 Respiratory Rate 20 20 Blood Pressure 118/54 L Pulse Oximetry Oxygen Delivery Oxygen Flow Rate 03/18/23 14:00 03/18/23 12:00 03/18/23 16:00 Temperature 99.1 F Pulse Rate 97 88 91 Respiratory Rate 16 Blood Pressure 124/44 L Pulse Oximetry 100 Oxygen Delivery Oxygen Flow Rate 03/18/23 20:40 03/18/23 20:40 03/18/23 20:50 Temperature Pulse Rate 96 93 Respiratory Rate 20 20 Blood Pressure Pulse Oximetry 98 Oxygen Delivery Nasal Cannula Oxygen Flow Rate 3 03/18/23 20:43 03/18/23 21:20 03/18/23 20:00 Temperature 97.9 F 97.9 F Pulse Rate 90 91 Respiratory Rate 16 18 Blood Pressure 122/52 L Pulse Oximetry 100 97 Oxygen Delivery Nasal Cannula Oxygen Flow Rate 2 03/19/23 02:56 03/18/23 22:10 03/18/23 20:00 Temperature Pulse Rate 91 87 93 Respiratory Rate 23 H 21 H Blood Pressure Pulse Oximetry 92 94 Oxygen Delivery Autopap Autopap Oxygen Flow Rate 03/19/23 00:00 03/19/23 04:00 03/19/23 04:23 Temperature 97.5 F L Pulse Rate 91 91 95 Respiratory Rate 16 Blood Pressure 129/59 L Pulse Oximetry 93 Oxygen Delivery Oxygen Flow Rate 03/19/23 07:30 03/19/23 07:30 03/19/23 07:40 Temperature Pulse Rate 96 96 95 Respiratory Rate 18 18 18 Blood Pressure Pulse Oximetry 96 Oxygen Delivery Room Air Oxygen Flow Rate 03/19/23 08:00 Temperature Pulse Rate Respiratory Rate Blood Pressure Pulse Oximetry 96 Oxygen Delivery Room Air Oxygen Flow Rate Intake/Output Intake/Output: Intake & Output 03/16/23 03/17/23 03/18/23 03/19/23 23:59 23:59 23:59 23:59 Intake Total 2395 315 360 Output Total 700 200 Balance 2395 -385 160 Meds/Results Medications: Active Medications Generic Name Dose Route Start Last Admin Trade Name Freq PRN Reason Stop Dose Admin Acetaminophen 325 mg 03/17/23 02:36 03/18/23 20:24 Acetaminophen 325 Mg Tablet PO 325 mg Q6H PRN Administration Pain and fever Albuterol 2 puff 03/17/23 09:00 Albuterol Sulfate (*Sp) Aerosol 1 Puff INHALATION QID NICK Albuterol/Ipratropium 3 ml 03/17/23 14:00 03/19/23 07:26 Ipratropium 0.5 Mg/Albuterol Sulfate 2.5 Mg Ampul.Neb 3 Ml INHALATION 3 ml Q6HRT NICK Administration Azelastine HCl 2 spray 03/17/23 02:36 Azelastine Hcl Nasal 0.1% 137 Mcg/Spr 30 Ml Btl NASAL Q12H PRN Allergy Symptoms Benzonatate 100
[2023-03-19] MEDS: SENNA/DOCUSATE SODIUM TABLET 1 TAB PO (16:16)
[2023-03-19] MEDS: IRON SUCROSE COMPLEX 500 MG in SODIUM CHLORIDE 0.9% IV 250 ML 79 MG IVPB (18:10)
[2023-03-19] MEDS: MELATONIN 5 MG TABLET PO (20:16)
[2023-03-20] VITALS (11 sets, daily range): BP systolic 135–143; BP diastolic 57–60; PULSE 83–110; RESP 14–20; TEMP 35.9–36.7; O2SAT 96–98
[2023-03-20] MEDS: IPRATROPIUM 0.5 MG/ALBUTEROL SULFATE 2.5 MG AMPUL.NEB 3 ML INHALATION ×3 (02:56→13:50)
--- NOTE | 2023-03-20 08:19 | PM.IMPN ---
Progress Note: A&P Assessment and Plan (1) Acute on chronic anemia: Code(s): D64.9 - Anemia, unspecified Status: Acute (2) DVT (deep venous thrombosis): Code(s): I82.409 - Acute embolism and thrombosis of unspecified deep veins of unspecified lower extremity Status: Acute (3) GI bleed: Qualifiers: GI bleed type/associated pathology: melena Qualified Code(s): K92.1 - Melena Code(s): K92.2 - Gastrointestinal hemorrhage, unspecified Status: Acute (4) Acute blood loss anemia: Code(s): D62 - Acute posthemorrhagic anemia Status: Acute (5) Pulmonary embolism: Qualifiers: Pulmonary embolism type: multiple subsegmental (without acute cor pulmonale) Qualified Code(s): I26.94 - Multiple subsegmental pulmonary emboli without acute cor pulmonale Code(s): I26.99 - Other pulmonary embolism without acute cor pulmonale Status: Acute Plan 87-year-old female with a history of COPD/asthma, diastolic dysfunction, history of breast cancer, iron deficiency anemia.? She was admitted to [facility] to twice in the past month.? First time for RSV and acute respiratory failure.? The 2nd time with shortness of breath and bilateral lower extremity edema and was only discharged 10 days ago to rehab.? She you was found to have bilateral DVT and bilateral PE and was started on Eliquis.? At the long-term she reports her hemoglobin was low so her Eliquis has been held for about a week already.? Still, melena persisted and was worse just prior to admission.? In the ER hemoglobin was found to be 6.? She was admitted on 03/16 for acute on chronic anemia although did not receive any treatment as she refused due to her restoration as a [employer]. #Acute on chronic anemia/upper GI bleed suspected -discussion of over 30 minutes help with the [employer] hospital liaison Victor M along with nurse Holder and multiple other nursing students.? The patient is competent in her decisions and is adamant she refuses blood or blood products or plasma products.? She has been educated on and the likely outcome of further deterioration if she continues to bleed and possibility of and she acknowledges. -they have requested Epogen and iron infusion.? I let them know the affects of this would take many days and is not emergent treatment.? Heme oncology has been consulted, we appreciate their assistance. -patient and [facility] liaison request transfer to [facility].? I let them know there is no additional treatment [facility] would be able to offer them aside from may be blood fractions which the patient is okay receiving.? Will make a call out to request transfer.? In the meantime, awaiting communication from fabrication and assembly supervisor on the availability of blood fractions although I have been told we do not have that.? Pharmacy does not have antidote for Eliquis, at any rate she has not taken apixaban for a week. -use pediatric tubes for blood draws.? Bed rest.? Ensure 2 peripheral IVs are patent.? Hemoglobin checked Q 6 hours along with lactate -normal saline with 40 mEq of potassium at 200 cc/hour.? Give 1 time dose albumin 50 g -GI consulted from ER.? Awaiting consultation still.? Have made the patient NPO.? Switched Protonix 40 mg IV q.day to b.i.d. while it appears she has an upper GI bleed and may benefit from endoscopy the risk of going under anesthesia in her condition is very high.? She is undecided, will allow GI to discuss with her. -Admitted with a hemoglobin of 6.? It is now 4.8.? She is currently stable although blood pressure is trending down.? Dr. Tobar earth auger operator is aware.? The patient on multiple occasions has considered her options and continues to refuse blood products or plasma products and also wants to be full code. On 03/18 her hemoglobin has now dropped to 4.2.? She request CT chest abdomen pelvis concerned there is a blood collection in her belly because she has not had a bowel m
[2023-03-20 08:37] LABS: Iron 390 ug/dL (37-170)
[2023-03-20 08:39] LABS: Basophils Percent Auto 0.2 % (0.2-1.2); Eosinophils Absolute Auto 0.2 K/mm3 (0-0.3); Eosinophils Percent Auto 2.2 % (0-4.4); Immature Granulocyte Absolute 0.14 K/mm3 (0.00-0.031); Immature Granulocyte Percent A 1.7 % (0-0.5); Immature Reticulocyte Fraction 45.1 % (3.0-15.9); Lymphocytes Absolute Auto 1.57 K/mm3 (0.9-3.2); Lymphocytes Percent Auto 19.2 % (18.3-44.2); Mean Corpuscular HGB Conc 28.8 g/dl (32-36); Mean Corpuscular Hemoglobin 28.2 pg (26-34); Mean Corpuscular Volume 98.2 fl (80-100); Mean Platelet Volume 10.3 fl (7.4-10.4); Monocytes Absolute Auto 0.5 K/mm3 (0.1-0.6); Monocytes Percent Auto 6.6 % (2.6-8.5); Neutrophils Absolute Auto 5.7 K/mm3 (1.3-6.7); Neutrophils Percent Auto 70.1 % (45.5-73.1); Nucleated Red Blood Cells Perc 0.5 % (0.0-0.2); Platelet Count Result 209 k/mm3 (150-375); Red Blood Count 1.63 M/mm3 (4.2-5.4); Red Cell Distribution Width 21.9 % (11.5-14.5); Reticulocyte Hemoglobin Conten 30.8 pg (28.2-35.7); Reticulocytes Absolute 0.19 M/mm3 (0.02-0.1); White Blood Count 8.2 K/mm3 (4.5-10.0)
[2023-03-20 08:44] LABS: Hemoglobin 4.6 g/dL (12.0-15.0)
[2023-03-20 08:45] LABS: Anion Gap 4 mmol/L (8-16); Blood Urea Nitrogen 8 mg/dL (7-17); Calcium 8.2 mg/dL (8.4-10.2); Carbon Dioxide 25 mmol/L (22-30); Chloride 104 mmol/L (98-107); Estimated CRCL calculation 45 ml/min; Estimated Glomerular Filt Rate > 60; Glucose 96 mg/dL (65-110); Potassium 3.7 mmol/L (3.4-5.0); Sodium 133 mmol/L (137-145)
[2023-03-20 08:48] LABS: Percent Iron Saturation 162 % (20-50)
[2023-03-20] MEDS: SERTRALINE HCL 50 MG TABLET 150 MG PO (08:57)
[2023-03-20] MEDS: BENZONATATE 100 MG CAPSULE PO ×2 (08:57→14:02)
[2023-03-20] MEDS: FERROUS SULFATE 325 MG TABLET DR 324 MG PO (08:58)
[2023-03-20] MEDS: SENNA/DOCUSATE SODIUM TABLET 1 TAB PO (08:59)
[2023-03-20 09:05] LABS: Vitamin B12 > 1000.0 pg/mL (239-931)
[2023-03-20 09:14] LABS: Anisocytosis 1+ (NORMAL); Hypochromasia 1+ (NORMAL); Platelet Estimate Adequate (Adequate); Schistocytes None Seen (NORMAL)
[2023-03-20 09:26] LABS: Methylmalonic Acid 221 nmol/L (87-318)
--- NOTE | 2023-03-20 10:45 | PM.PNGS ---
Progress Note: A&P Assessment and Plan (1) Acute on chronic anemia: Code(s): D64.9 - Anemia, unspecified Status: Acute Assessment and Plan: slightly improved, will need transfer to tertiary care facility (2) Pulmonary embolism: Qualifiers: Pulmonary embolism type: multiple subsegmental (without acute cor pulmonale) Qualified Code(s): I26.94 - Multiple subsegmental pulmonary emboli without acute cor pulmonale Code(s): I26.99 - Other pulmonary embolism without acute cor pulmonale Status: Acute Assessment and Plan: hold anticoagulation, will likely need IVC filter Subjective Subjective Date/Time Seen: 03/20/23 10:45 Interval history: no acute issues, some increased respiratory rate Review of Systems Review of Systems: All systems reviewed & are unremarkable except as noted in HPI and below Exam Const: General: cooperative, comfortable and no acute distress Resp: Auscultation: clear to auscultation bilaterally Cardio: Rate: regular rate Rhythm: regular rhythm GI: Inspection: normal to inspection Objective Data Vital Signs Vital Signs: Vital Signs - 24 hr 03/19/23 13:07 03/19/23 13:15 03/19/23 14:00 Temperature 36.5 C Pulse Rate 94 95 94 Respiratory Rate 18 18 18 Blood Pressure 131/56 L Pulse Oximetry 96 Oxygen Delivery 03/19/23 12:03 03/19/23 16:01 03/19/23 20:00 Temperature Pulse Rate 117 H 90 Respiratory Rate Blood Pressure Pulse Oximetry 96 Oxygen Delivery Room Air 03/19/23 21:17 03/19/23 21:18 03/19/23 21:20 Temperature 37.4 C Pulse Rate 87 94 91 Respiratory Rate 12 18 18 Blood Pressure 140/49 L Pulse Oximetry 95 94 Oxygen Delivery Room Air 03/19/23 21:30 03/19/23 21:30 03/19/23 20:00 Temperature Pulse Rate 94 94 93 Respiratory Rate 19 19 Blood Pressure Pulse Oximetry 99 Oxygen Delivery Autopap 03/20/23 00:00 03/20/23 02:56 03/20/23 02:56 Temperature Pulse Rate 85 84 84 Respiratory Rate 20 20 Blood Pressure Pulse Oximetry 96 Oxygen Delivery Autopap 03/20/23 03:03 03/20/23 04:21 03/20/23 04:00 Temperature 36.7 C Pulse Rate 83 90 84 Respiratory Rate 20 14 Blood Pressure 135/57 L Pulse Oximetry 98 Oxygen Delivery 03/20/23 08:58 03/20/23 09:11 Temperature Pulse Rate 94 92 Respiratory Rate 18 18 Blood Pressure Pulse Oximetry Oxygen Delivery Intake/Output Intake/Output: Intake & Output 03/17/23 03/18/23 03/19/23 03/20/23 23:59 23:59 23:59 23:59 Intake Total 2395 315 1840 750 Output Total 700 2200 400 Balance 2395 -385 -360 350 Meds/Results Medications: Active Medications Generic Name Dose Route Start Last Admin Trade Name Freq PRN Reason Stop Dose Admin Acetaminophen 325 mg 03/17/23 02:36 03/18/23 20:24 Acetaminophen 325 Mg Tablet PO 325 mg Q6H PRN Administration Pain and fever Albuterol 2 puff 03/17/23 09:00 Albuterol Sulfate (*Sp) Aerosol 1 Puff INHALATION QID NICK Albuterol/Ipratropium 3 ml 03/17/23 14:00 03/20/23 08:57 Ipratropium 0.5 Mg/Albuterol Sulfate 2.5 Mg Ampul.Neb 3 Ml INHALATION 3 ml Q6HRT NICK Administration Alprazolam 0.5 mg 03/19/23 16:38 Alprazolam (*Crx) 0.5 Mg Tablet BY MOUTH DAILY PRN anxiety Azelastine HCl 2 spray 03/17/23 02:36 Azelastine Hcl Nasal 0.1% 137 Mcg/Spr 30 Ml Btl NASAL Q12H PRN Allergy Symptoms Benzonatate 100 mg 03/18/23 09:00 03/20/23 08:57 Benzonatate 100 Mg Capsule PO 100 mg TID NICK Administration Diltiazem HCl 120 mg 03/17/23 09:00 03/17/23 10:31 Diltiazem Hcl Cd 120 Mg Cap.24hr PO Not Given DAILY NICK Ferrous Sulfate 324 mg 03/18/23 09:00 03/20/23 08:58 Ferrous Sulfate [address] PO 324 mg Q48H NICK Administration Fluticasone Propionate 2 spray 03/17/23 09:00 03/19/23 21:06 Fluticasone Propionate 0.05% Na Spr 16 Gm Btl (*Bkc) NASAL 2 spray Q12HR
--- NOTE | 2023-03-20 11:39 | PM.IMPN ---
Progress Note: A&P Assessment and Plan (1) Acute on chronic anemia: Code(s): D64.9 - Anemia, unspecified Status: Acute (2) DVT (deep venous thrombosis): Code(s): I82.409 - Acute embolism and thrombosis of unspecified deep veins of unspecified lower extremity Status: Acute (3) GI bleed: Qualifiers: GI bleed type/associated pathology: melena Qualified Code(s): K92.1 - Melena Code(s): K92.2 - Gastrointestinal hemorrhage, unspecified Status: Acute (4) Acute blood loss anemia: Code(s): D62 - Acute posthemorrhagic anemia Status: Acute (5) Pulmonary embolism: Qualifiers: Pulmonary embolism type: multiple subsegmental (without acute cor pulmonale) Qualified Code(s): I26.94 - Multiple subsegmental pulmonary emboli without acute cor pulmonale Code(s): I26.99 - Other pulmonary embolism without acute cor pulmonale Status: Acute Plan 87-year-old female with a history of COPD/asthma, diastolic dysfunction, history of breast cancer, iron deficiency anemia.? She was admitted to [facility] to twice in the past month.? First time for RSV and acute respiratory failure.? The 2nd time with shortness of breath and bilateral lower extremity edema and was only discharged 10 days ago to rehab.? She you was found to have bilateral DVT and bilateral PE and was started on Eliquis.? At the longterm she reports her hemoglobin was low so her Eliquis has been held for about a week already.? Still, melena persisted and was worse just prior to admission.? In the ER hemoglobin was found to be 6.? She was admitted on 03/16 for acute on chronic anemia although did not receive any treatment as she refused due to her nondenominational as a [employer]. #Acute on chronic anemia/upper GI bleed suspected -discussion of over 30 minutes help with the [facility] hospital liaison Victor M along with nurse Holder and multiple other nursing students.? The patient is competent in her decisions and is adamant she refuses blood or blood products or plasma products.? She has been educated on and the likely outcome of further deterioration if she continues to bleed and possibility of and she acknowledges. -they have requested Epogen and iron infusion.? I let them know the affects of this would take many days and is not emergent treatment.? Heme oncology has been consulted, we appreciate their assistance. -patient and [facility] liaison request transfer to [place].? I let them know there is no additional treatment [place] would be able to offer them aside from may be blood fractions which the patient is okay receiving.? Will make a call out to request transfer.? In the meantime, awaiting communication from mine supervisor on the availability of blood fractions although I have been told we do not have that.? Pharmacy does not have antidote for Eliquis, at any rate she has not taken apixaban for a week. -use pediatric tubes for blood draws.? Bed rest.? Ensure 2 peripheral IVs are patent.? Hemoglobin checked Q 6 hours along with lactate -normal saline with 40 mEq of potassium at 200 cc/hour.? Give 1 time dose albumin 50 g -GI consulted from ER.? Awaiting consultation still.? Have made the patient NPO.? Switched Protonix 40 mg IV q.day to b.i.d. while it appears she has an upper GI bleed and may benefit from endoscopy the risk of going under anesthesia in her condition is very high.? She is undecided, will allow GI to discuss with her. -Admitted with a hemoglobin of 6.? It is now 4.8.? She is currently stable although blood pressure is trending down.? Dr. Tobar manager office services is aware.? The patient on multiple occasions has considered her options and continues to refuse blood products or plasma products and also wants to be full code. On 03/18 her hemoglobin has now dropped to 4.2.? She request CT chest abdomen pelvis concerned there is a blood collection in her belly because she has not had a bowel mov
[2023-03-20] MEDS: ALBUMIN HUMAN 25% 25 GM/100 ML 200 ML IVPB (12:04)
[2023-03-20] MEDS: PANTOPRAZOLE SODIUM IV 40 MG VIAL IV PUSH (12:16)
--- NOTE | 2023-03-20 12:50 | PM.TDS ---
Transfer Discharge Sum: Prov Provider Date of admission: 03/17/23 09:59 Primary care physician: Mark العلي DO Admitting clinician: Ellen Gutierrez MD Consults: 03/16/23 Consult to Physician Routine Comment: Consulting Provider: Hermila Vega Reason for consultation: IVC filter placement Has provider been notified: Yes Consult to Physician Routine Comment: Consulting Provider: Jakub Jansen Reason for consultation: anemia, GI bleeding Has provider been notified: Yes 03/17/23 Consult to Physician Routine Comment: TAVIA for 03.16.23 @0930--/us Consulting Provider: Chadwick Enciso scallop cutter machine/MD group to consult: heme-onc Reason for consultation: anemia Has provider been notified: Yes 03/18/23 Consult to Physician Routine Comment: LASHAYM on cell 03.18.23 @ 1121 (,us) Consulting Provider: Barber Sam Reason for consultation: gi bleed hh 4.2 13.7 Has provider been notified: Yes Attending physician on discharge: You Diamond Discharging clinician: You Diamond Anticipated date of transfer: 03/20/23 Receiving physician/facility: [place], [place]. DS: Admitting Diagnosis Discharge Date 03/20/2023: Admitting Diagnosis Acute blood loss anemia Pulmonary embolism Y[facility]danism, not accepting blood transfusions DS: Discharge Diagnosis Discharge Diagnosis (1) Refusal of blood transfusions as patient is Pentecostal: Code(s): Z53.1 - Procedure and treatment not carried out because of patient's decision for reasons of belief and group pressure Status: Acute (2) Acute on chronic anemia: Code(s): D64.9 - Anemia, unspecified Status: Acute (3) DVT (deep venous thrombosis): Code(s): I82.409 - Acute embolism and thrombosis of unspecified deep veins of unspecified lower extremity Status: Acute (4) Acute blood loss anemia: Code(s): D62 - Acute posthemorrhagic anemia Status: Acute (5) Anemia: Qualifiers: Anemia type: unspecified type Qualified Code(s): D64.9 - Anemia, unspecified Code(s): D64.9 - Anemia, unspecified Status: Acute (6) GI bleed: Qualifiers: GI bleed type/associated pathology: melena Qualified Code(s): K92.1 - Melena Code(s): K92.2 - Gastrointestinal hemorrhage, unspecified Status: Acute (7) Pulmonary embolism: Qualifiers: Pulmonary embolism type: multiple subsegmental (without acute cor pulmonale) Qualified Code(s): I26.94 - Multiple subsegmental pulmonary emboli without acute cor pulmonale Code(s): I26.99 - Other pulmonary embolism without acute cor pulmonale Status: Acute (8) Chronic anticoagulation: Code(s): Z79.01 - long term care phlebotomist (current) use of anticoagulants Status: Acute (9) Chronic hyponatremia: Code(s): E87.1 - Hypo-osmolality and hyponatremia Status: Chronic (10) Debility: Code(s): R53.81 - Other malaise Status: Acute (11) Hypertension: Qualifiers: Hypertension type: primary hypertension Qualified Code(s): I10 - Essential (primary) hypertension Code(s): I10 - Essential (primary) hypertension Status: Chronic (12) Overweight (BMI 25.0-29.9): Code(s): E66.3 - Overweight Status: Acute (13) Depression: Qualifiers: Depression Type: dysthymia Qualified Code(s): F34.1 - Dysthymic disorder Code(s): F32.9 - Major depressive disorder, single episode, unspecified Status: Acute (14) Allergic rhinitis: Qualifiers: Allergic rhinitis trigger: unspecified Allergic rhinitis seasonality: unspecified Qualified Code(s): J30.9 - Allergic rhinitis, unspecified Code(s): J30.9 - Allergic rhinitis, unspecified Status: Acute (15) Benign essential hypertension: Onset Date: Unknown Code(s): I10 - Essential (primary) hypertension Status: Chronic
[2023-03-20] MEDS: guaiFENesin 12 HR 600 MG TABCR PO (14:02)
[2023-03-20] MEDS: FOLIC ACID 1 MG/0.2 ML INJ IV PUSH (14:03)
[2023-03-20] MEDS: FLUTICASONE PROPIONATE 0.05% NA SPR 16 GM BTL (*BKC) 2 SPRAY NASAL (14:07)
--- NOTE | 2023-03-20 17:23 | WPDONCPN ---
Progress Note: A/P - Additional Plan Profound anemia. This is secondary to GI blood loss. She is a Jehovah Witness and would not take blood transfusion. Three rounds of iron infusion was given and hemoglobin remains low but stable. Iron studies showed elevated levels. Patient has received vitamin B12 injections as well. Clinically she is not much symptomatic. She is going to transferred to [facility] for fractionated blood transfusion. Patient will follow-up in the office. Bilateral lower extremity DVT and PE diagnosed March 03, 2023 anticoagulation therapy was discontinued due to profound anemia. Patient may need IVC filter placement once hemoglobin is stable. History of breast cancer. Patient is in remission. She will follow-up in the office. - Time Spent With Patient Total time spent is greater than 50% in coordination of care (as documented) at patient's floor/unit and/or counseling patient: 15 - 25 minutes Subjective Interval history: Profound anemia Review of Systems - Review of Systems Patient seems to be comfortable. She is going to be transferred to another hospital. Denies any melena hematochezia but did not have any bowel movement for several days now. No fevers and chills. Denies any other new complaints. - Neurologic Reports hearing normal, Denies confusion, Denies vertigo, Denies focal weakness, Denies sensory deficit, Denies weakness Exam Vital signs: Temp Pulse Resp BP Pulse Ox O2 Del Method O2 Flow Rate 35.9 C L 94 18 143/60 H 98 Autopap 3 03/20/23 14:00 03/20/23 14:00 03/20/23 14:00 03/20/23 14:00 03/20/23 14:00 03/20/23 02:56 03/18/23 20:40 Narrative: Lungs are clear to auscultation bilaterally Cardiovascular regular rate rhythm no murmurs Abdomen soft nontender nondistended Extremities no edema PN: Objective Data - Labs CBC & Chem 7: 03/20/23 06:40 03/20/23 06:40 Labs: Laboratory Results - last 24 hr 03/17/23 03/20/23 03/20/23 06:17 06:40 06:40 WBC 8.2 RBC 1.63 L Hgb 4.6 L* Hct 16.0 L* MCV 98.2 D MCH 28.2 MCHC 28.8 L RDW 21.9 H Plt Count 209 MPV 10.3 Immature Gran % (Auto) 1.7 H Neut % (Auto) 70.1 Lymph % (Auto) 19.2 Catron % (Auto) 6.6 Eos % (Auto) 2.2 Baso % (Auto) 0.2 Lymph # (Auto) 1.57 Catron # (Auto) 0.5 Eos # (Auto) 0.2 Baso # (Auto) 0.0 Abs Immat Gran (auto) 0.14 H Absolute Neuts (auto) 5.7 Absolute Nucleated RBC 0.0 Nucleated RBC % 0.5 H Platelet Estimate Adequate Hypochromasia 1+ Anisocytosis 1+ Schistocytes None seen Absolute Retic Cancelled 0.19 H Percent Retic Cancelled Immature Retic Fraction Retic Hgb Content Sodium Potassium Chloride Carbon Dioxide Anion Gap BUN Creatinine Estim Creat Clear Calc Estimated GFR Glucose Calcium Iron TIBC % Saturation Ferritin Vitamin B12 Methylmalonic Acid 221 03/20/23 03/20/23 03/20/23 06:40 06:40 06:40 WBC RBC Hgb Hct MCV MCH MCHC RDW Plt Count MPV Immature Gran % (Auto) Neut % (Auto) Lymph % (Auto) Catron % (Auto) Eos % (Auto) Baso % (Auto) Lymph # (Auto) Catron # (Auto) Eos # (Auto) Baso # (Auto) Abs Immat Gran (auto) Absolute Neuts (auto) Absolute Nucleated RBC Nucleated RBC % Platelet Estimate Hypochromasia Anisocytosis Schistocytes Absolute Retic Percent Retic 11.80 H Immature Retic Fraction Cancelled 45.1 H Retic Hgb Content Cancelled 30.8 Sodium 133 L Potassium 3.7 Chloride 104 Carbon Dioxide 25 Anion Gap 4 L BUN 8 Creatinine 0.80 Estim Creat Clear Calc 45 Estimated GFR > 60 Glucose 96 Calcium 8.2 L Iron TIBC % Saturation Ferritin Vitamin B12 Methylmalonic Acid 03/20/23 06:44 WBC RBC Hgb Hct MCV MCH MCHC
--- NOTE | 2023-03-20 20:59 | PC.NURSE ---
This RN in to assess pt. Pt and her advocate/friend upset about level of care received previous day. Uncertain of events that sound as a potential misunderstanding, this RN called Krista to request new provider per pt request. Dr. Diamond assigned. Lobo and RN to bedside to address concerns. Pt transfer completed to [place] with RN contact Judy, room [id number], [facility] truck requested. Pt and family extremely appreciative of all staff and cares received.
[2023-03-28 17:02] LABS: Soluble Transferrin Receptor 1.15 mg/L (0.76-1.76)
== END 2023-03-20 17:20 | disposition short-term general hospital (02) | DRG 812 ==
LOC: ANHED 20:04 → ANH3MEDSUR 21:08
PROVIDERS: Emergency Medicine; General Practice; Hospitalist; Nurse Practitioner Family; Admitting Provider Internal Medicine; Emergency Provider Physician Assistant; PCP Family Medicine; Visit Provider Family Medicine
DX: D62 Acute posthemorrhagic anemia (principal); K92.2 Gastrointestinal hemorrhage, unspecified; E87.1 Hypo-osmolality and hyponatremia; I48.20 Chronic atrial fibrillation, unspecified; I10 Essential (primary) hypertension; Z53.1 Procedure and treatment not carried out because of patient's decision for reasons of belief and group pressure; E88.09 Other disorders of plasma-protein metabolism, not elsewhere classified; E87.6 Hypokalemia; J43.9 Emphysema, unspecified; M17.0 Bilateral primary osteoarthritis of knee; G47.33 Obstructive sleep apnea (adult) (pediatric); T45.515A Adverse effect of anticoagulants, initial encounter; F32.9 Major depressive disorder, single episode, unspecified; Z86.711 Personal history of pulmonary embolism; Z86.718 Personal history of other venous thrombosis and embolism; Z79.01 Long term (current) use of anticoagulants; Z87.891 Personal history of nicotine dependence; Z85.3 Personal history of malignant neoplasm of breast; Z86.010 Personal history of colon polyps
CPT/HCPCS: 36415; 71046; 71260; 74177; 80048; 80053; 82607; 82728; 82746; 83540; 83550; 83735; 83921; 84145; 84238; 85014; 85018; 85025; 85046; 85610; 85730; 86850; 86870; 86880; 86900; 86901; 86902; 86906; 86922; 87637; 94640; 96374; 99285; A9270; C9113; G0378; J1756; J3420; J7030; J7050; J7131; P9047; Q9967

== ENCOUNTER 2023-04-24 15:19 | Outpatient (CLI) | payer MEDICARE, OTHER, SELFPAY ==
[2023-04-24 18:46] LABS: Basophils Absolute Auto 0.1 K/mm3 (0.0-0.1); Basophils Percent Auto 0.5 % (0.2-1.2); Eosinophils Absolute Auto 0.3 K/mm3 (0-0.3); Eosinophils Percent Auto 2.7 % (0-4.4); Hematocrit 38.2 % (37.0-47.0); Hemoglobin 10.9 g/dL (12.0-15.0); Immature Granulocyte Absolute 0.03 K/mm3 (0.00-0.031); Immature Granulocyte Percent A 0.3 % (0-0.5); Lymphocytes Percent Auto 23.7 % (18.3-44.2); Mean Corpuscular HGB Conc 28.5 g/dl (32-36); Mean Corpuscular Hemoglobin 25.1 pg (26-34); Mean Platelet Volume 11.7 fl (7.4-10.4); Monocytes Absolute Auto 0.8 K/mm3 (0.1-0.6); Monocytes Percent Auto 8.4 % (2.6-8.5); Neutrophils Absolute Auto 6.3 K/mm3 (1.3-6.7); Neutrophils Percent Auto 64.4 % (45.5-73.1); Platelet Count Result 257 k/mm3 (150-375); Red Blood Count 4.34 M/mm3 (4.2-5.4); Red Cell Distribution Width 20.9 % (11.5-14.5); White Blood Count 9.7 K/mm3 (4.5-10.0)
[2023-04-24 18:58] LABS: Anion Gap 8 mmol/L (8-16); Blood Urea Nitrogen 9 mg/dL (7-17); Calcium 9.4 mg/dL (8.4-10.2); Carbon Dioxide 28 mmol/L (22-30); Chloride 100 mmol/L (98-107); Estimated Glomerular Filt Rate 59; Glucose 96 mg/dL (65-110); Potassium 3.6 mmol/L (3.4-5.0); Sodium 136 mmol/L (137-145)
[2023-04-24 19:48] LABS: Anisocytosis 3+ (NORMAL); Hypochromasia 1+ (NORMAL); Platelet Estimate Adequate (Adequate); Schistocytes None Seen (NORMAL)
== END 2023-04-24 15:20 | disposition home or self-care (01) ==
LOC: ANHGOSHLAB 15:21
PROVIDERS: PCP Family Medicine; Visit Provider Family Medicine
DX: R53.83 Other fatigue (principal); Z13.228 Encounter for screening for other metabolic disorders
CPT/HCPCS: 36415; 80048; 85025

== ENCOUNTER 2023-06-16 10:00 | Outpatient (CLI) | payer MEDICARE, OTHER, SELFPAY ==
--- NOTE | ~2023-06-16 | MM_ITS ---
EXAMINATION: MM screening jacobo LT w prema HISTORY: Screening mammogram; status post right mastectomy for right breast lobular carcinoma TECHNIQUE: Craniocaudal and mediolateral oblique 3-D tomosynthesis images were obtained and synthetic 2-D images were generated. CAD analysis was submitted and interpreted. COMPARISON: June 12, 2022, June 10, 2021 left screening mammogram examinations BREAST PARENCHYMAL COMPOSITION: There are scattered areas of fibroglandular density. FINDINGS: There is no evidence of suspicious mass, calcification, or architectural distortion to sugg est malignancy in either breast. There has been no suspicious interval change. IMPRESSION: 1. Status post right mastectomy for lobular carcinoma. No mammographic evidence of left breast malign becky. 2. Recommend routine screening mammography in one year. BI-RADS Category 1: Negative Reviewed, dictated and finalized at location A. IMPRESSION: 1. Status post right mastectomy for lobular carcinoma. No mammographic evidence of left breast malignancy. 2. Recommend routine screening mammography in one year. BI-RADS Category 1: Negative
== END 2023-06-16 10:01 | disposition home or self-care (01) ==
PROVIDERS: PCP Family Medicine; Visit Provider Internal Medicine Hematology & Oncology
DX: Z12.31 Encounter for screening mammogram for malignant neoplasm of breast (principal)
CPT/HCPCS: 77063; 77067

== ENCOUNTER 2023-06-19 10:58 | Outpatient (CLI) | payer MEDICARE, OTHER, SELFPAY ==
[2023-06-19 11:23] LABS: Basophils Percent Auto 0.4 % (0.2-1.2); Eosinophils Absolute Auto 0.1 K/mm3 (0-0.3); Eosinophils Percent Auto 1.1 % (0-4.4); Hematocrit 36.6 % (37.0-47.0); Hemoglobin 11.7 g/dL (12.0-15.0); Immature Granulocyte Absolute 0.02 K/mm3 (0.00-0.031); Immature Granulocyte Percent A 0.3 % (0-0.5); Lymphocytes Absolute Auto 1.84 K/mm3 (0.9-3.2); Mean Corpuscular Hemoglobin 26.5 pg (26-34); Mean Corpuscular Volume 82.8 fl (80-100); Monocytes Absolute Auto 0.5 K/mm3 (0.1-0.6); Monocytes Percent Auto 7.3 % (2.6-8.5); Neutrophils Absolute Auto 4.9 K/mm3 (1.3-6.7); Neutrophils Percent Auto 65.9 % (45.5-73.1); Platelet Count Result 204 k/mm3 (150-375); Red Blood Count 4.42 M/mm3 (4.2-5.4); Red Cell Distribution Width 20.9 % (11.5-14.5); White Blood Count 7.4 K/mm3 (4.5-10.0)
[2023-06-19 12:48] LABS: Iron 49 ug/dL (37-170)
[2023-06-19 12:50] LABS: Alanine Aminotransferase 18 U/L (6-35); Albumin Level 4.4 g/dL (3.5-5.1); Alkaline Phosphatase 75 U/L (38-126); Anion Gap 8 mmol/L (4-12); Aspartate Amino Transferase 22 U/L (14-36); Bilirubin,Total 0.5 mg/dL (0.2-1.3); Blood Urea Nitrogen 17 mg/dL (7-17); Calcium 9.5 mg/dL (8.4-10.2); Carbon Dioxide 28 mmol/L (22-30); Chloride 99 mmol/L (98-107); Estimated Glomerular Filt Rate 47; Glucose 99 mg/dL (65-110); Sodium 135 mmol/L (137-145)
[2023-06-19 12:58] LABS: Percent Iron Saturation 20 % (20-50)
[2023-06-19 13:56] LABS: Folic Acid 11.7 ng/mL (2.76->20)
[2023-06-23 01:28] LABS: CA 15-3 20 U/mL (<32)
== END 2023-06-19 10:59 | disposition home or self-care (01) ==
LOC: ANHLAB 11:05
PROVIDERS: PCP Family Medicine; Visit Provider Internal Medicine Hematology & Oncology
DX: D64.9 Anemia, unspecified (principal); C50.011 Malignant neoplasm of nipple and areola, right female breast; Z17.0 Estrogen receptor positive status [ER+]
CPT/HCPCS: 36415; 80053; 82607; 82728; 82746; 83540; 83550; 85025; 86300

== ENCOUNTER 2023-06-25 10:08 | Outpatient (CLI) | payer MEDICARE, OTHER, SELFPAY ==
--- NOTE | ~2023-06-25 | CT_ITS ---
EXAMINATION: CT sinus wo con DATE: 06/25/2023 10:40 INDICATION: Chronic sinusitis, unspecified. TECHNIQUE: Computed tomography (CT) of the paranasal sinuses was performed without intravenous contra st. Iterative reconstruction technique was employed. The dose-length product was 333.52 mGy-cm. COMPARISON: CT 07/03/22 FINDINGS: The frontal sinuses are hypoplastic. There is mild mucosal thickening in the ethmoid sinuse s. The sphenoid and maxillary sinuses are clear. There is rightward deviation of the nasal septum. Th e ostiomeatal units are patent. There are bilateral Paco cells. IMPRESSION: 1. Mild mucosal thickening in the ethmoid sinuses. 2. Rightward deviation of the nasal septum. Reviewed, dictated and finalized at location A.
== END 2023-06-25 10:09 | disposition home or self-care (01) ==
PROVIDERS: PCP Family Medicine; Visit Provider Otolaryngology
DX: J32.9 Chronic sinusitis, unspecified (principal); J34.2 Deviated nasal septum; J34.89 Other specified disorders of nose and nasal sinuses
CPT/HCPCS: 70486

== ENCOUNTER 2023-09-30 13:10 | Outpatient (CLI) | payer MEDICARE, OTHER, SELFPAY ==
--- NOTE | ~2023-09-30 | US_ITS ---
EXAMINATION:US venous doppler LE LT INDICATION:Acute DVT TECHNIQUE: Multiple grayscale, color flow and Doppler images of the left lower extremity deep venous systems were obtained and reviewed. COMPARISON:No prior studies for comparison. FINDINGS: The common femoral, superficial femoral and popliteal veins demonstrate normal respiratory variation, augmentation and compressibility. Color flow is also seen within the posterior tibial, pe roneal, greater saphenous and profunda veins. IMPRESSION: 1: No lower extremity deep venous thrombosis. Reviewed, dictated and finalized at location B.
== END 2023-09-30 13:11 | disposition home or self-care (01) ==
PROVIDERS: PCP Family Medicine; Visit Provider Internal Medicine Hematology & Oncology
DX: I82.4Y2 Acute embolism and thrombosis of unspecified deep veins of left proximal lower extremity (principal)
CPT/HCPCS: 36415; 80053; 82607; 82728; 82784; 83540; 83550; 83883; 84155; 84165; 85025; 86300; 93971

== ENCOUNTER 2024-01-02 14:54 | Inpatient (IN) | payer MEDICARE, OTHER, SELFPAY ==
[2024-01-02] VITALS (12 sets, daily range): BP systolic 125–153; BP diastolic 57–84; PULSE 88–112; RESP 14–24; TEMP 36.6–36.7; O2SAT 92–98; BMI 27.3
--- NOTE | ~2024-01-02 | CT_ITS ---
EXAMINATION: CTA chest PE protocol DATE: 01/02/2024 17:32 INDICATION: suddent onset dyspnea, increased cough TECHNIQUE: Computed tomography angiography (CTA) of the chest was performed with 100 mL Omnipaque-350 intravenous contrast timed to evaluate the pulmonary arteries. Coronal maximum intensity projection 3D-reconstructions were created by the technologist. The dose-length product (DLP) was 243.53 mGy-cm. Automated exposure control and iterative reconstruction technique were employed. COMPARISON: 03/03/2023; x-ray chest, 01/02/2024. FINDINGS: Lung parenchyma and airways: Dependent septal thickening, groundglass opacity, and minimal consolidat ion. Pleura: Unremarkable. Thoracic inlet, axillae and chest wall: Status post right mastectomy. Thoracic aorta: No significant dilation. No dissection. Mediastinum: Enlarged AP window lymph node. Carly calcification. Heart and pericardium: Normal heart size. Trace pericardial fluid. Mitral calcification. Coronary artery calcifications: Mild. Upper abdomen: No significant finding. Bones: No acute osseous finding. Pulmonary arteries: Study quality: Adequate. No pulmonary emboli detected. IMPRESSION: No CT evidence of acute pulmonary embolus. Moderate pulmonary edema. Mediastinal lymphadenopathy. Trace pericardial effusion. Reviewed, dictated and finalized at location K. [employer]
--- NOTE | ~2024-01-02 | XR_ITS ---
EXAMINATION: XR chest 1V portable Exam Date/Time: 01/02/2024 15:25 NURSE PLASTICS HISTORY: SOB, WHEEZING Comparison: 03/16/2023. RESULT: Lines, tubes, and devices: None. Lungs and pleura: Segmental left medial lower lung airspace disease. Moderate diffuse reticular opac ities and mild groundglass opacities. Cardiomediastinal silhouette: Stable. Other: No acute osseous or upper abdominal finding. IMPRESSION: Segmental airspace disease in the left medial lower lung, may represent focal alveolar edema, atelect asis, or consolidation of infection. Moderate interstitial pulmonary edema. Reviewed, dictated and finalized at location K. E PLASTICS IMPRESSION: Segmental airspace disease in the left medial lower lung, may represent focal a lveolar edema, atelectasis, or consolidation of infection. Moderate interstitial pulmonary edema.
--- NOTE | 2024-01-02 14:58 | ECG_ITS ---
Test Date: 2024-01-02 15:07:31 Measurements Intervals [place] Rate: 92 P: 58 NV: 192 QRS: -23 QRSD: 96 T: 46 QT: 364 QTc: 451 Interpretive Statements SINUS RHYTHM WITH OCCASIONAL VENTRICULAR PREMATURE COMPLEXES LEFT ATRIAL ENLARGEMENT CANNOT R/O SEPTAL INFARCT, AGE INDETERMINATE MINIMAL Q WAVES- HIGH LATERAL LEADS BASELINE ARTIFACT- I, II, III, AVR, AVL, AVF, V4-V6 ABNORMAL ECG No previous ECG available for comparison Electronically Signed On 01-02-2024 16:32:37 SECURITY MONITOR by Madi Pitts D.O.
[2024-01-02 15:05] LABS: Basophils Percent Auto 0.4 % (0.2-1.2); Eosinophils Absolute Auto 0.1 K/mm3 (0-0.3); Eosinophils Percent Auto 0.9 % (0-4.4); Hematocrit 42.9 % (37.0-47.0); Hemoglobin 14.6 g/dL (12.0-15.0); Immature Granulocyte Absolute 0.03 K/mm3 (0.00-0.031); Immature Granulocyte Percent A 0.3 % (0-0.5); Lymphocytes Absolute Auto 3.97 K/mm3 (0.9-3.2); Lymphocytes Percent Auto 38.7 % (18.3-44.2); Mean Corpuscular Volume 88.3 fl (80-100); Mean Platelet Volume 11.1 fl (7.4-10.4); Monocytes Absolute Auto 0.7 K/mm3 (0.1-0.6); Monocytes Percent Auto 6.7 % (2.6-8.5); Neutrophils Absolute Auto 5.4 K/mm3 (1.3-6.7); Platelet Count Result 209 k/mm3 (150-375); Red Blood Count 4.86 M/mm3 (4.2-5.4); Red Cell Distribution Width 15.5 % (11.5-14.5); White Blood Count 10.3 K/mm3 (4.5-10.0)
[2024-01-02 15:06] LABS: Alveolar/Arterial O2 Gradient 153.7 mmHg; Base Excess ABG -2.9 mEq/l (+/-2.0); Fractional Inspired Oxygen 36 %; HCO3 ABG 21.2 mEq/l (22.0-26.0); PCO2 ABG 35.2 mmHg (35.0-45.0); PO2 ABG 62.2 mmHg (80.0-100.0); PO2 FiO2 Ratio Arterial Blood 1.73 %; pH ABG 7.397 (7.350-7.450)
--- NOTE | 2024-01-02 15:06 | ED.SOB ---
HPI - SOB/Dyspnea General Chief Complaint: Shortness of Breath/Dyspnea <Kun Figueredo PA-C - Last Filed: 01/03/24 01:37> Stated Complaint: resp distress <EFREN Terrell Last Filed: 01/03/24 01:37> Time Seen by Provider: 01/02/24 14:59 <EFREN Terrell Last Filed: 01/03/24 01:37> Source: patient <EFREN Terrell Last Filed: 01/03/24 01:37> Mode of arrival: EMS <EFREN Terrell Last Filed: 01/03/24 01:37> Limitations: no limitations <EFREN Terrell Last Filed: 01/03/24 01:37> History of Present Illness HPI Narrative: This is a 88-year-old female with PMH of CHF, COPD who presents to the ED via EMS from home for chief complaint of dyspnea of sudden onset today while at home. Patient reports that she was just sitting down and talking on the phone which she started to feel increasingly short of breath. EMS states that they found patient in tripod position on their arrival. They had administered a DuoNeb, Solu-Medrol and magnesium and route. Patient continued to look in respiratory distress with a started CPAP EN route which they feel made a big difference. Patient does feel much better after the medications and CPAP administration. She still states that she feels short of breath. She is endorsing increasing cough with productive mucus. States that she has been taking her albuterol inhalers at home but unsure of any other inhaler she is supposed to take. She does endorse bilateral lower extremity edema increasing over the past month or so as well. States that a couple months ago they took her down to ?a quarter pill? of her Bumex. Denies chest pain, abdominal pain, nausea, vomiting, fevers, chills, syncope, back pain. <EFREN Terrell Last Filed: 01/03/24 01:37> Related Data Home Medications: Home Medications Medication Instructions Recorded Confirmed albuterol sulfate 90 mcg/actuation 2 puff inhalation QID 03/16/23 01/02/24 aerosol inhaler (Ventolin HFA) multivitamin (Daily Multi-Vitamin 1 tablet PO DAILY 04/14/23 01/02/24 tablet) vitamin B complex (B 1 tablet PO DAILY 04/14/23 01/02/24 Complex-Vitamin B12 tablet) acetaminophen 325 mg tablet 650 mg PO Q6H PRN Pain and fever 04/23/23 01/02/24 budesonide-formoterol HFA 160 2 puff inhalation BID 01/02/24 01/02/24 mcg-4.5 mcg/actuation aerosol inhaler (Symbicort) bumetanide 2 mg tablet 1 mg PO DAILY 01/02/24 01/02/24 <Kun Figueredo PA-C - Last Filed: 01/03/24 01:37> Allergies/Adverse Reactions: Allergies Allergy/AdvReac Type Severity Reaction Status Date / Time lisinopril Allergy Intermediate Hives Verified 01/02/24 15:10 codeine Allergy Unknown Unknown- Verified 01/02/24 15:10 UNABLE TO RECAL <Kun Figueredo PA-C - Last Filed: 01/03/24 01:37> Review of Systems Review of Systems: All systems as dictated in HPI <Kun Figueredo PA-C - Last Filed: 01/03/24 01:37> [facility] Past Medical History Medical History: Medical History (Updated 01/03/24 @ 12:58 by Brittany Edmond APRN) Adenomatous colon polyp Anemia Anxiety Asthma Chronic anticoagulation Chronic hyponatremia Chronic sinusitis Degenerative arthritis of knee, bilateral Depression Diastolic dysfunction DVT (deep venous thrombosis) Estrogen receptor positive status (ER+) GI bleed History of esophageal dilatation Hypertension Insomnia Iron deficiency anemia due to chronic blood loss 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, estrogen receptor positive Nonallergic rhinitis EVELYN (obstructive sleep apnea) Osteoarthritis of right knee (Unknown) Pancreatitis Port-A-Cath in place (~2018) Pulmonary embolism Refusal of blood transfusions as patient is [employer] <Kun Figueredo PA-C - Last Filed: 01/03/24 01:37> Surgical History Surgical History: Surgical History (Updated 01/02/24 @ 21:21 by Viviana Ocampo APRN) History of bladder surgery Bladder tie up x2 History of cataract extraction with lens replacement History of cholecystectomy History of hernia repair History of hysterectomy History of right knee surgery History of right mastectomy S/P nasal surgery <EFREN Terrell Last Filed: 01/03/24 01:37> Family History Family History: Family History Father Family history of diabetes mellitus in first degree relative Family history of coronary artery disease Patient's father is in good health Mother Family history of lung cancer Sibling Family history of lung cancer Family history of malignant neoplasm of brain, Onset Age: 60 Other Diabetes mellitus Family history of cardiovascular disease Family history of kidney disease <EFREN Terrell Last Filed: 01/03/24 01:37> Social History Social History: Social History Social History: Surrogate medical decision maker: Urbano Bailey, son. Code status: Full code. Smoking packs per day: 0.5 Smoking cigarettes per day: 10.0 Years smoked: 20 Smoking pack-years: 10.00 Smoking status: Never smoker Second hand tobacco smoke exposure: No Additional smoking assessment comments: STATES <PK/DAY/3YRS Alcohol intake: current Drinks per week: 3 Alcohol use details: DRINK Substance use: never Substance use type: does not use Do You Feel Safe in your Home?: Yes Lack of Transportation: No Lack of Food: Never True Current Housing: I Have Housing Concerned About Future Housing: No Difficulty Paying Gas/Electric Bills: No Difficulty Paying for Meds: No Currently Unemployed: No Education: High School Diploma/GED Difficulty w/ Childcare or Family Care: No Living arrangements: with family Additional living arrangements comments: LIVES WITH [facility] Occupation/Education: retired Spiritual care concerns: No Agree to blood products: No <EFREN Terrell Last Filed: 01/03/24 01:37> Exam Narrative: GENERAL: Well-appearing, well-nourished, and in no acute distress. HEAD: Normocephalic, atraumatic. EYES: PERRLA and EOMI. ENT: Nares clear, no rhinorrhea or epistaxis. Mucous membranes moist. Oropharynx without tonsillar hypertrophy exudate or other lesions. NECK: Supple. No adenopathy or masses. CHEST: increased work of breathing present. Saturating 92% on 4 L nasal cannula. Bilateral wheezes heard, worse on the left. Able speak in nearly full sentences. HEART: Regular rate and rhythm. No murmur heard. Normal peripheral pulses. ABDOMEN: Soft, nontender, nondistended, normal active bowel sounds. MSK: Normal range of motion. 3+ bilateral pitting edema from foot to calf. No erythema, induration or tenderness. No drainage SKIN: Warm, dry, no rash. NEURO: Alert and oriented x4. No focal deficits. PSYCH: Normal mood and affect. <Kun Figueredo PA-C - Last Filed: 01/03/24 01:37> Course TESTING TECH/PA Physician Supervision For this patient encounter, I reviewed the TESTING TECH or PA documentation, treatment plan, and medical decision making and/or I had [id number] time with this patient. I performed all aspects of the MDM as documented. <Camila Christiansen MD - Last Filed: 01/07/24 14:22> Vital Signs Vital signs: Vital Signs Temperature 97.8 F 01/02/24 14:49 Pulse Rate 112 H 01/02/24 14:49 Respiratory Rate 24 H 01/02/24 14:49 Blood Pressure 153/84 H 01/02/24 14:49 Pulse Oximetry 92 01/02/24 14:49 Oxygen Delivery Nasal Cannula 01/02/24 14:49 Oxygen Flow Rate 4 01/02/24 14:49 Temperature 97.4 F L 01/04/24 14:00 Pulse Rate 89 01/04/24 14:00 Respiratory Rate 18 01/04/24 14:00 Blood Pressure 125/51 L 01/04/24 14:00 Pulse Oximetry 100 01/04/24 14:00 Oxygen Delivery Room Air 01/04/24 13:49 Oxygen Flow Rate 2 01/02/24 21:11 Fraction of Inspired Oxygen 21 01/04/24 13:49 <Kun Figueredo PA-C - Last Filed: 01/03/24 01:37> Vital Signs Temperature 97.8 F 01/02/24 14:49 Pulse Rate 112 H 01/02/24 14:49 Respiratory Rate 24 H 01/02/24 14:49 Blood Pressure 153/84 H 01/02/24 14:49 Pulse Oximetry 92 01/02/24 14:49 Oxygen Delivery Nasal Cannula 01/02/24 14:49 Oxygen Flow Rate 4 01/02/24 14:49 Temperature 97.4 F L 01/04/24 14:00 Pulse Rate 89 01/04/24 14:00 Respiratory Rate 18 01/04/24 14:00 Blood Pressure 125/51 L 01/04/24 14:00 Pulse Oximetry 100 01/04/24 14:00 Oxygen Delivery Room Air 01/04/24 13:49 Oxygen Flow Rate 2 01/02/24 21:11 Fraction of Inspired Oxygen 21 01/04/24 13:49 <Camila Christiansen MD - Last Filed: 01/07/24 14:22> MDM - SOB/Dyspnea MDM Narrative Medical decision making narrative: This is a 88 yo female who presents to the ED for chief complaint of shortness of breath sudden onset today while at home. She arrives to the ED on CPAP via EMS. Vitals initially showing tachycardia, tachypnea but stable blood pressure. She arrives on 4 L nasal cannula. Exam shows patient with mildly increased work of breathing but speaking in nearly full sentences. ABG unremarkable on her arrival. Started hour long breathing treatment for diffuse wheezes. She also has bilateral pitting edema to the lower extremities. Mildly elevated white count of 10.3 on the CBC. CMP shows unremarkable findings. Magnesium 3.1, however she did receive 2 g of Mag en route. Troponin is normal. BNP is very mildly elevated at 331. Chest CTA: IMPRESSION: No CT evidence of acute pulmonary embolus. Moderate pulmonary edema. Mediastinal lymphadenopathy. Trace pericardial effusion. Chest x-ray IMPRESSION: Segmental airspace disease in the left medial lower lung, may represent focal alveolar edema, atelectasis, or consolidation of infection. Moderate interstitial pulmonary edema. Patient was given antibiotics for likely COPD exacerbation along with our long breathing treatment here. Started on Lasix as well due to pulmonary edema. Suspect she has had an increasing component of heart failure contributing, however today's acute episode is more related to the COPD. On multiple re-evaluations she is doing better. She is on 2 L nasal cannula and saturating well. Discussed my plan of admission for COPD versus CHF exacerbation with patient family. They are understanding and agreeable. I discussed this case with DARIUS Michelle ( Hospitalist ) who agrees to admit the patient to the medical floor with telemetry. Admitted in stable condition <Kun Figueredo PA-C - Last Filed: 01/03/24 01:37> Differential Diagnosis Differential diagnosis: Likely acute exacerbation of chronic obstructive airways disease, congestive heart failure, community acquired pneumonia and asthma with exacerbation <Camila Christiansen MD - Last Filed: 01/07/24 14:22> Medical Records Attestation: I reviewed the patient's medical records. <Camila Christiansen MD - Last Filed: 01/07/24 14:22> Lab Data Attestation: I reviewed the patient's lab results. <Camila Christiansen MD - Last Filed: 01/07/24 14:22> Result diagrams: 01/04/24 08:25 01/04/24 08:25 <Kun Figueredo PA-C - Last Filed: 01/03/24 01:37> Labs: Lab Results 01/02/24 01/03/24 01/03/24 Range/Units 15:00 05:46 08:35 WBC 10.3 H 8.2 (4.5-10.0) K/mm3 RBC 4.86 4.32 (4.2-5.4) M/mm3 Hgb 14.6 12.7 (12.0-15.0) g/dL Hct 42.9 37.4 (37.0-47.0) % MCV 88.3 86.6 (80-100) fl MCH 30.0 29.4 (26-34) pg MCHC 34.0 34.0 (32-36) g/dl RDW 15.5 H 15.6 H (11.5-14.5) % Plt Count 209 185 (150-375) k/mm3 MPV 11.1 H 11.6 H (7.4-10.4) fl Immature Gran % (Auto) 0.3 0.2 (0-0.5) % Neut % (Auto) 53.0 87.7 H (45.5-73.1) % Lymph % (Auto) 38.7 7.2 L (18.3-44.2) % [place] % (Auto) 6.7 4.8 (2.6-8.5) % Eos % (Auto) 0.9 0.0 (0-4.4) % Baso % (Auto) 0.4 0.1 L (0.2-1.2) % Lymph # (Auto) 3.97 H 0.59 L (0.9-3.2) K/mm3 [place] # (Auto) 0.7 H 0.4 (0.1-0.6) K/mm3 Eos # (Auto) 0.1 0.0 (0-0.3) K/mm3 Baso # (Auto) 0.0 0.0 (0.0-0.1) K/mm3 Abs Immat Gran (auto) 0.03 0.02 (0.00-0.031) K/mm3 Absolute Neuts (auto) 5.4 7.2 H (1.3-6.7) K/mm3 Absolute Nucleated RBC 0.000 0.000 (0.0-0.012) K/mm3 Nucleated RBC % 0.0 0.0 (0.0-0.2) % PT 12.7 (11.1-14.7) Seconds INR 0.9 APTT 25.0 (22.3-36.8) Seconds Sodium 132 L 132 L (137-145) mmol/L Potassium 3.7 3.7 (3.4-5.0) mmol/L Chloride 95 L 98 (98-107) mmol/L Carbon Dioxide 29 27 (22-30) mmol/L Anion Gap 8 7 (4-12) mmol/L BUN 18 H 20 H (7-17) mg/dL Creatinine 0.90 0.90 (0.7-1.0) mg/dL Estim Creat Clear Calc 38 38 ml/min Estimated GFR 59 59 (59 - ) Glucose 127 H 144 H (65-110) mg/dL Calcium 9.4 9.1 (8.4-10.2) mg/dL Magnesium 3.1 H (1.6-2.3) mg/dL Total Bilirubin 0.5 (0.2-1.3) mg/dL AST 35 (14-36) U/L ALT 20 (6-35) U/L Alkaline Phosphatase 83 (38-126) U/L Troponin I < 0.012 (0.000-0.034) ng/mL NT-Pro-B Natriuret Pep 331 H (19.9-100) pg/mL Total Protein 8.0 (6.3-8.2) g/dL Albumin 4.4 (3.5-5.1) g/dL Influenza A (RT-PCR) Negative (Negative) Influenza B (RT-PCR) Negative (Negative) RSV (RT-PCR) Negative (Negative) SARS-CoV-2 RNA (RT-PCR) Negative (Negative) <Kun Figueredo PA-C - Last Filed: 01/03/24 01:37> Lab Results 01/02/24 01/03/24 01/03/24 Range/Units 15:00 05:46 08:35 WBC 10.3 H 8.2 (4.5-10.0) K/mm3 RBC 4.86 4.32 (4.2-5.4) M/mm3 Hgb 14.6 12.7 (12.0-15.0) g/dL Hct 42.9 37.4 (37.0-47.0) % MCV 88.3 86.6 (80-100) fl MCH 30.0 29.4 (26-34) pg MCHC 34.0 34.0 (32-36) g/dl RDW 15.5 H 15.6 H (11.5-14.5) % Plt Count 209 185 (150-375) k/mm3 MPV 11.1 H 11.6 H (7.4-10.4) fl Immature Gran % (Auto) 0.3 0.2 (0-0.5) % Neut % (Auto) 53.0 87.7 H (45.5-73.1) % Lymph % (Auto) 38.7 7.2 L (18.3-44.2) % [place] % (Auto) 6.7 4.8 (2.6-8.5) % Eos % (Auto) 0.9 0.0 (0-4.4) % Baso % (Auto) 0.4 0.1 L (0.2-1.2) % Lymph # (Auto) 3.97 H 0.59 L (0.9-3.2) K/mm3 [place] # (Auto) 0.7 H 0.4 (0.1-0.6) K/mm3 Eos # (Auto) 0.1 0.0 (0-0.3) K/mm3 Baso # (Auto) 0.0 0.0 (0.0-0.1) K/mm3 Abs Immat Gran (auto) 0.03 0.02 (0.00-0.031) K/mm3 Absolute Neuts (auto) 5.4 7.2 H (1.3-6.7) K/mm3 Absolute Nucleated RBC 0.000 0.000 (0.0-0.012) K/mm3 Nucleated RBC % 0.0 0.0 (0.0-0.2) % PT 12.7 (11.1-14.7) Seconds INR 0.9 APTT 25.0 (22.3-36.8) Seconds Sodium 132 L 132 L (137-145) mmol/L Potassium 3.7 3.7 (3.4-5.0) mmol/L Chloride 95 L 98 (98-107) mmol/L Carbon Dioxide 29 27 (22-30) mmol/L Anion Gap 8 7 (4-12) mmol/L BUN 18 H 20 H (7-17) mg/dL Creatinine 0.90 0.90 (0.7-1.0) mg/dL Estim Creat Clear Calc 38 38 ml/min Estimated GFR 59 59 (59 - ) Glucose 127 H 144 H (65-110) mg/dL Calcium 9.4 9.1 (8.4-10.2) mg/dL Magnesium 3.1 H (1.6-2.3) mg/dL Total Bilirubin 0.5 (0.2-1.3) mg/dL AST 35 (14-36) U/L ALT 20 (6-35) U/L Alkaline Phosphatase 83 (38-126) U/L Troponin I < 0.012 (0.000-0.034) ng/mL NT-Pro-B Natriuret Pep 331 H (19.9-100) pg/mL Total Protein 8.0 (6.3-8.2) g/dL Albumin 4.4 (3.5-5.1) g/dL Influenza A (RT-PCR) Negative (Negative) Influenza B (RT-PCR) Negative (Negative) RSV (RT-PCR) Negative (Negative) SARS-CoV-2 RNA (RT-PCR) Negative (Negative) <Camila Christiansen MD - Last Filed: 01/07/24 14:22> ABG Data ABG results: 01/02/24 15:04 Puncture Site Left radial ABG pH 7.397 ABG pCO2 35.2 ABG pO2 62.2 L ABG PO2/FiO2 Ratio 1.73 ABG HCO3 21.2 L ABG O2 Saturation 92.0 L ABG O2 Content 19.0 ABG Base Excess -2.9 A-a Gradient 153.7 Oxyhemoglobin 90.0 Total Hemoglobin 15.0 O2 Delivery Device Nasal cannula O2 Liters/Min 4.0 FiO2 36 <Kun Figueredo PA-C - Last Filed: 01/03/24 01:37> 01/02/24 15:04 Puncture Site Left radial ABG pH 7.397 ABG pCO2 35.2 ABG pO2 62.2 L ABG PO2/FiO2 Ratio 1.73 ABG HCO3 21.2 L ABG O2 Saturation 92.0 L ABG O2 Content 19.0 ABG Base Excess -2.9 A-a Gradient 153.7 Oxyhemoglobin 90.0 Total Hemoglobin 15.0 O2 Delivery Device Nasal cannula O2 Liters/Min 4.0 FiO2 36 <Camila Christiansen MD - Last Filed: 01/07/24 14:22> Imaging Data Radiologist's impression: ITS Impressions Chest X-Ray 01/02/24 15:47 IMPRESSION: Segmental airspace disease in the left medial lower lung, may represent focal alveolar edema, atelectasis, or consolidation of infection. Moderate interstitial pulmonary edema. Chest CTA 01/02/24 17:34 IMPRESSION: No CT evidence of acute pulmonary embolus. Moderate pulmonary edema. Mediastinal lymphadenopathy. Trace pericardial effusion. <Camila Christiansen MD - Last Filed: 01/07/24 14:22> Critical Care Time Critical Care Time Critical Care Time: No <Camila Christiansen MD - Last Filed: 01/07/24 14:22> Discharge Plan Discharge Clinical Impression: Acute exacerbation of chronic obstructive pulmonary disease, Pulmonary edema <Kun Figueredo PA-C - Last Filed: 01/03/24 01:37> Patient Disposition: Still a Patient <Kun Figueredo PA-C - Last Filed: 01/03/24 01:37> Condition: Improved <Kun Figueredo PA-C - Last Filed: 01/03/24 01:37>
[2024-01-02 15:07] LABS: Device NASAL CANNULA; Modified Allen's Test Pass; Site Drawn LEFT RADIAL
[2024-01-02 15:14] LABS: Alanine Aminotransferase 20 U/L (6-35); Albumin Level 4.4 g/dL (3.5-5.1); Alkaline Phosphatase 83 U/L (38-126); Anion Gap 8 mmol/L (4-12); Aspartate Amino Transferase 35 U/L (14-36); Bilirubin,Total 0.5 mg/dL (0.2-1.3); Blood Urea Nitrogen 18 mg/dL (7-17); Calcium 9.4 mg/dL (8.4-10.2); Carbon Dioxide 29 mmol/L (22-30); Chloride 95 mmol/L (98-107); Estimated CRCL calculation 38 ml/min; Estimated Glomerular Filt Rate 59; Glucose 127 mg/dL (65-110); Potassium 3.7 mmol/L (3.4-5.0); Sodium 132 mmol/L (137-145)
[2024-01-02] MEDS: IPRATROPIUM BR 0.02% INH SOLN 0.5 MG/2.5 ML VIAL 1 MG INHALATION (15:14)
[2024-01-02] MEDS: ALBUTEROL SULFATE NEB 2.5 MG/3 ML INH 10 MG INHALATION (15:14)
[2024-01-02 15:16] LABS: INR 0.9; Prothrombin Time 12.7 Seconds (11.1-14.7)
[2024-01-02 15:47] LABS: Magnesium 3.1 mg/dL (1.6-2.3)
[2024-01-02 15:59] LABS: NT Pro B Type Natriuretic Pept 331 pg/mL (19.9-100); Troponin I < 0.012 ng/mL (0.000-0.034)
[2024-01-02] MEDS: FUROSEMIDE INJ 40 MG/4 ML VIAL IV PUSH (16:21)
[2024-01-02] MEDS: AZITHROMYCIN 500 MG/NS 250 ML 500 MG/250 ML BAG 250 MG IVPB (17:40)
--- NOTE | 2024-01-02 18:42 | PM.IMHP ---
H&P: HPI History of Present Illness Date/Time: 01/02/24 18:42 Chief Complaint: Shortness of Breath Narrative: 88 y/o F presents here with shortness of breath with PMH of iron deficiency anemia, COPD, never smoker, breast cancer (s/p chemo, then on pill - 2017), and diastolic dysfunction. The patient presents here from home via EMS for further evaluation of shortness of breath. The patient provides the following history. She reports acute onset of SOB at around 3:30 while she was resting. Patient's granddaughter had stopped by and noted that the patient was in respiratory ditress and severly short of breath this prompted her to call 911. She is chronically short of breath secondary to COPD. Upon EMS arrival, they found the patient in a tripod position with audible wheezing. She was administered an albuterol nebulizer, 125 mg of Solu-Medrol, 2G of Mag, and a DuoNeb. Patient was not placed on CPAP. Per EMS report to ED staff, the patient's color and lung sounds improved with these treatments. Patient arrived 92% on 4L NC with mild tachycardia and tachypnea. No baseline O2 requirement. Shortness of breath is accompanied by a productive cough that is mainly productive in the morning post-breathing treatment - she is able to cough up cream moderate amount of sputum, has been going on for the last few weeks. Denies recent sick contact, fever, chills, or body aches. Patient also reports crhonic swelling to her lower extremity, has been worse over the last couple of days. Patient had her diuretic decreased at the end of Nov v early Dec at her last cardiology appt. The patient follows with Tamica RAMIREZ. Diuretic decreased due to volume of urinary frequency which required her to wear pads and she felt the results were not worth the side effects given she still had swelling to her lower extremities. Initial VS at presentation: 97.8? F, HR 112, RR 24, 153/84, and 92% on 4L NC. ED workup showed: WBC 10.3, no anemia, normal coags, sodium 132, creatinine 0.9 and GFR 59, magnesium 3.1, initial troponin negative, and BNP 3 3 1. ABG showed a pO2 of 62.2, HC03 21.2, and O2 saturation 92% on 4L. CXR showed segmental airspace disease in the left medial lower lung and moderate interstitial pulmonary edema. Chest CTA showed no PE, moderate pulmonary edema, mediastinal lymphadenopathy, and trace pericardial effusion. Review of Systems Review of Systems: All systems reviewed & are unremarkable except as noted in HPI and below FOR[facility]LY [facility] Past Medical History Medical History (Updated 01/02/24 @ 21:21 by Viviana Ocampo APRN) Adenomatous colon polyp Anemia Anxiety Asthma Chronic anticoagulation Chronic hyponatremia Chronic sinusitis Degenerative arthritis of knee, bilateral Depression Diastolic dysfunction DVT (deep venous thrombosis) Estrogen receptor positive status (ER+) GI bleed History of esophageal dilatation Hypertension Insomnia Iron deficiency anemia due to chronic blood loss 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, estrogen receptor positive Nonallergic rhinitis EVELYN (obstructive sleep apnea) Osteoarthritis of right knee (Unknown) Pancreatitis Port-A-Cath in place (~2018) Pulmonary embolism Refusal of blood transfusions as patient is Jehovah's witness Surgical History Surgical History (Updated 01/02/24 @ 21:21 by Viviana Ocampo APRN) History of bladder surgery Bladder tie up x2 History of cataract extraction with lens replacement History of cholecystectomy History of hernia repair History of hysterectomy History of right knee surgery History of right mastectomy S/P nasal surgery Family History Family History Father Family history of diabetes mellitus in first degree relative Family history of coronary artery disease Patient's father is in good health Mother Family history of lung cancer Sibling Family history of lung cancer Family history of malignant neoplasm of brain, Onset Age: 60 Other Diabetes mellitus Family history of cardiovascular disease Family history of kidney disease Social History Social History Social History: Surrogate medical decision maker: Urbano Bailey, son. Code status: Full code. Smoking packs per day: 0.5 Smoking cigarettes per day: 10.0 Years smoked: 20 Smoking pack-years: 10.00 Smoking status: Never smoker Second hand tobacco smoke exposure: No Additional smoking assessment comments: STATES <PK/DAY/3YRS Alcohol intake: current Drinks per week: 3 Alcohol use details: DRINK Substance use: never Substance use type: does not use Do You Feel Safe in your Home?: Yes Lack of Transportation: No Lack of Food: Never True Current Housing: I Have Housing Concerned About Future Housing: No Difficulty Paying Gas/Electric Bills: No Difficulty Paying for Meds: No Currently Unemployed: No Education: High School Diploma/GED Difficulty w/ Childcare or Family Care: No Living arrangements: with family Additional living arrangements comments: LIVES WITH SPOUSE [facility] Occupation/Education: retired Spiritual care concerns: No Agree to blood products: No Meds Home Medications and Allergies Home Medications Medication Instructions Recorded Confirmed Type fluticasone propionate 50 2 spray intranasal BID #15.8 mL 06/23/22 01/02/24 Rx mcg/actuation nasal spray,suspension ipratropium 0.5 mg-albuterol 3 mg 3 ml inhalation Q6H PRN shortness 11/12/22 01/02/24 Rx (2.5 mg base)/3 mL nebulization of breath or wheezing #360 mL soln albuterol sulfate 90 mcg/actuation 2 puff inhalation QID 03/16/23 01/02/24 History aerosol inhaler (Ventolin HFA) multivitamin (Daily Multi-Vitamin 1 tablet PO DAILY 04/14/23 01/02/24 History tablet) vitamin B complex (B 1 tablet PO DAILY 04/14/23 01/02/24 History Complex-Vitamin B12 tablet) acetaminophen 325 mg tablet 650 mg PO Q6H PRN Pain and fever 04/23/23 01/02/24 History pantoprazole 40 mg tablet,delayed 40 mg PO BID #180 tabs 05/28/23 01/02/24 Rx release sertraline 50 mg tablet (Zoloft) 150 mg PO DAILY #270 tabs 07/02/23 01/02/24 Rx ipratropium bromide 21 mcg (0.03 2 spray intranasal TID #90 mL 09/24/23 01/02/24 Rx %) nasal spray budesonide-formoterol HFA 160 2 puff inhalation BID 01/02/24 01/02/24 History mcg-4.5 mcg/actuation aerosol inhaler (Symbicort) bumetanide 2 mg tablet 1 mg PO DAILY 01/02/24 01/02/24 History Allergies Allergy/AdvReac Type Severity Reaction Status Date / Time lisinopril Allergy Intermediate Hives Verified 01/02/24 15:10 codeine Allergy Unknown Unknown- Verified 01/02/24 15:10 UNABLE TO RECAL Vital Signs Vital Signs - 24 hr 01/02/24 14:49 01/02/24 15:06 01/02/24 15:15 Temperature 97.8 F Pulse Rate 112 H Respiratory Rate 24 H Blood Pressure 153/84 H Pulse Oximetry 92 95 95 Oxygen Delivery Nasal Cannula Nasal Cannula Nasal Cannula Oxygen Flow Rate 4 4 4 Fraction of Inspired Oxygen 36 01/02/24 15:15 01/02/24 16:16 01/02/24 16:16 Temperature Pulse Rate 88 103 H Respiratory Rate 20 22 H Blood Pressure Pulse Oximetry 96 Oxygen Delivery Nasal Cannula Oxygen Flow Rate 3 Fraction of Inspired Oxygen 32 01/02/24 16:26 01/02/24 17:43 01/02/24 18:36 Temperature Pulse Rate 102 H 100 Respiratory Rate 19 15 Blood Pressure 133/57 L 125/72 Pulse Oximetry 96 98 96 Oxygen Delivery Nasal Cannula Oxygen Flow Rate 2 Fraction of Inspired Oxygen Exam Const: General: comfortable and no acute distress Other: , female, mildly ill-appearing HENMT: Face/Nose/Sinus: Normal nares present Mouth: Yes moist mucous membranes Eyes: General: appearance normal, both eyes and all related structures Sclera: sclerae normal Pupils: Equal, round and reactive pupils present EOM: EOMs intact bilaterally Resp: Effort & Inspection: normal respiratory effort Auscultation: clear to auscultation bilaterally Cardio: Rate: regular rate Rhythm: regular rhythm Other: S1-S2 present without murmur, rub, ectopy GI: Other: Abdomen soft, nondistended, nontender Skin: General skin exam: normal color and no rashes or lesions noted Wounds: no wounds Neuro: Speech: normal speech Motor exam (neuro): 5/5 motor strength present throughout Sensory Exam: normal sensation Other: A&O x4. Extrem: Other: 2+ pitting edema to bilateral lower extremities, symmetric. Extends 2[address] her calves. Psych: Mental Status: mental status grossly normal Affect: normal affect Other: Good insight and judgment, pleasant H&P: Results Labs Labs: Short CBC 01/02/24 Range/Units 15:00 WBC 10.3 H (4.5-10.0) K/mm3 Hgb 14.6 (12.0-15.0) g/dL Hct 42.9 (37.0-47.0) % Plt Count 209 (150-375) k/mm3 BMP 01/02/24 15:00 Sodium 132 L Potassium 3.7 Chloride 95 L Carbon Dioxide 29 BUN 18 H Creatinine 0.90 Glucose 127 H Calcium 9.4 Cardiac Enzymes 01/02/24 Range/Units 15:00 Troponin I < 0.012 (0.000-0.034) ng/mL Liver Function 01/02/24 Range/Units 15:00 Total Bilirubin 0.5 (0.2-1.3) mg/dL AST 35 (14-36) U/L ALT 20 (6-35) U/L Alkaline Phosphatase 83 (38-126) U/L Albumin 4.4 (3.5-5.1) g/dL Assessment and Plan Assessment and plan (1) Acute respiratory failure with hypoxia: Code(s): J96.01 - Acute respiratory failure with hypoxia Status: Acute Assessment and Plan: -CXR: Segmental airspace disease in the left medial lower lung, may represent focal alveolar edema, atelectasis, or consolidation of infection. Moderate interstitial pulmonary edema. -CTA chest: No CT evidence of acute pulmonary embolus. Moderate pulmonary edema. Mediastinal lymphadenopathy. Trace pericardial effusion. -add viral PCR -suspect new hypoxia and shortness of breath is multifactorial including acute exacerbation of COPD with asthma and volume overload secondary to diastolic dysfunction/recent change in home diuretic. Plan for scheduled nebs, antibiotics, steroids, and diuresis. See separate plans below. (2) Acute exacerbation of COPD with asthma: Code(s): J44.1 - Chronic obstructive pulmonary disease with (acute) exacerbation; J45.901 - Unspecified asthma with (acute) exacerbation Status: Acute Assessment and Plan: - newly productive cough, new O2 requirement - start scheduled duonebs, steroids, azithromycin and ceftriaxone - wean supplemental O2 as tolerated while maintaining sats above 92% - supportive care (3) Diastolic dysfunction: Code(s): I51.89 - Other ill-defined heart diseases Status: Acute Assessment and Plan: - BNP 331, virtually unchanged since February of 2023 - most recent echo (02/2023): Normal systolic function, estimated EF 65-70%, and grade 1 diastolic dysfunction. See report for further details. - currently on: Bumex 1 mg daily, will continue as 1 mg IVP b.i.d. and hold home dose. - monitor I&Os and daily weights - trend renal function (4) Hypertension: Qualifiers: Hypertension type: primary hypertension Qualified Code(s): I10 - Essential (primary) hypertension Code(s): I10 - Essential (primary) hypertension Status: Chronic Assessment and Plan: - chronic, currently 125/72 - continue home medications: Bumex, see above - monitor Plan History of EVELYN, utilizes CPAP. Ordered. Diet: Heart healthy GI Prophylaxis: Not currently indicated DVT Prophylaxis: SCDs Lines: Peripheral Code Status: Full code Quality VTE Prophylaxis VTE prophylaxis: mechanical ordered Hospitalist MIPS Advance Care Plan I have confirmed that the patient's Advanced Care Plan is present, code status is documented, or surrogate decision maker is listed in patient medical record.: Yes Medication Reconciliation I have utilized all available resources to obtain, update and review the patients current medications (includes all prescriptions, OTC, herbals, cannabis, and nutritional supplements).: Yes
--- NOTE | 2024-01-02 20:10 | ADMGEN ---
This patient, Tatianna Bailey, was admitted to 3 Med Surg Room 302-01. Patient/family oriented to hospital policies and general routines including ID bracelet, bed and alarms, visiting hours, pain management, procedures, bathroom and other care routines, personal items, smoking policy, room service/diet, and visiting hours. Information on how to activate the Rapid Response Team has been discussed. Patient/Family are encouraged to report perceived risks to care and to ask questions if they do not understand what they are told or what they should do.
[2024-01-02] MEDS: WATER FOR IRRIGATION, STERILE 1,000 ML BOTTLE 1000 ML (20:50)
[2024-01-02] MEDS: IPRATROPIUM 0.5 MG/ALBUTEROL SULFATE 2.5 MG AMPUL.NEB 3 ML INHALATION (20:51)
[2024-01-02] MEDS: ACETAMINOPHEN 325 MG TABLET 650 MG PO (20:52)
[2024-01-02] MEDS: guaiFENesin 12 HR 600 MG TABCR PO (20:52)
[2024-01-02] MEDS: PANTOPRAZOLE 40 MG TABLET PO (22:20)
[2024-01-02] MEDS: FLUTICASONE PROPIONATE 0.05% NA SPR 16 GM BTL (*BKC) 2 SPRAY NASAL (22:21)
--- NOTE | 2024-01-02 22:37 | PCRTNOTE ---
Albuterol MDI not given, Duoneb was given at 2051.
[2024-01-03] VITALS (19 sets, daily range): BP systolic 116–166; BP diastolic 57–78; PULSE 69–119; RESP 15–22; TEMP 36.6–37.1; O2SAT 94–96
[2024-01-03] MEDS: IPRATROPIUM 0.5 MG/ALBUTEROL SULFATE 2.5 MG AMPUL.NEB 3 ML INHALATION ×4 (02:56→20:24)
[2024-01-03 06:39] LABS: Basophils Percent Auto 0.1 % (0.2-1.2); Hematocrit 37.4 % (37.0-47.0); Hemoglobin 12.7 g/dL (12.0-15.0); Immature Granulocyte Absolute 0.02 K/mm3 (0.00-0.031); Immature Granulocyte Percent A 0.2 % (0-0.5); Lymphocytes Absolute Auto 0.59 K/mm3 (0.9-3.2); Lymphocytes Percent Auto 7.2 % (18.3-44.2); Mean Corpuscular Hemoglobin 29.4 pg (26-34); Mean Corpuscular Volume 86.6 fl (80-100); Mean Platelet Volume 11.6 fl (7.4-10.4); Monocytes Absolute Auto 0.4 K/mm3 (0.1-0.6); Monocytes Percent Auto 4.8 % (2.6-8.5); Neutrophils Absolute Auto 7.2 K/mm3 (1.3-6.7); Neutrophils Percent Auto 87.7 % (45.5-73.1); Platelet Count Result 185 k/mm3 (150-375); Red Blood Count 4.32 M/mm3 (4.2-5.4); Red Cell Distribution Width 15.6 % (11.5-14.5); White Blood Count 8.2 K/mm3 (4.5-10.0)
[2024-01-03 07:00] LABS: Blood Urea Nitrogen 20 mg/dL (7-17); Calcium 9.1 mg/dL (8.4-10.2); Carbon Dioxide 27 mmol/L (22-30); Estimated CRCL calculation 38 ml/min; Estimated Glomerular Filt Rate 59; Glucose 144 mg/dL (65-110); Potassium 3.7 mmol/L (3.4-5.0); Sodium 132 mmol/L (137-145)
[2024-01-03] MEDS: MULTIVITAMINS THERAPEUTIC TAB (*BKC) 1 TABLET PO (08:17)
[2024-01-03] MEDS: PANTOPRAZOLE 40 MG TABLET PO ×2 (08:17→16:55)
[2024-01-03] MEDS: guaiFENesin 12 HR 600 MG TABCR PO ×2 (08:17→21:07)
[2024-01-03] MEDS: SERTRALINE HCL 50 MG TABLET 150 MG PO (08:17)
[2024-01-03] MEDS: predniSONE 20 MG TABLET 40 MG PO (08:17)
[2024-01-03] MEDS: VITAMIN B COMPLEX CAPSULE 1 CAP PO (08:17)
[2024-01-03] MEDS: AZITHROMYCIN 250 MG TABLET 500 MG PO (08:17)
[2024-01-03] MEDS: IPRATROPIUM NASAL SPRAY 0.03% 15 ML BOTTLE 2 SPRAY NASAL ×2 (08:18→15:20)
[2024-01-03] MEDS: BUMETANIDE INJ 1 MG/4 ML VIAL IV PUSH ×2 (08:20→16:54)
[2024-01-03] MEDS: FLUTICASONE PROPIONATE 0.05% NA SPR 16 GM BTL (*BKC) 2 SPRAY NASAL ×2 (08:20→16:55)
[2024-01-03] MEDS: FLUTICASONE/SALMETEROL 115-21 MCG INHALER 1 PUFF 2 PUFF INHALATION ×2 (08:36→20:24)
[2024-01-03 08:57] LABS: Anion Gap 7 mmol/L (4-12); Chloride 98 mmol/L (98-107)
[2024-01-03 09:17] LABS: Influenza A QL RT-PCR Negative (Negative); Influenza B QL RT-PCR Negative (Negative); RSV RNA, RT-PCR Negative (Negative); SARS-CoV-2 RNA PCR Negative (Negative)
--- NOTE | 2024-01-03 11:53 | P.PNIM_ITS ---
Progress Note: A&P Assessment and Plan (1) Acute respiratory failure with hypoxia: Code(s): J96.01 - Acute respiratory failure with hypoxia Status: Acute Assessment and Plan: * Chest x-ray showing interstitial lung disease, * CTA of the chest was negative for PE, showed mediastinal lymphadenopathy, moderate pulmonary edema, trace pericardial effusion * Patient has had panic attacks/anxiety * Respiratory panel negative for COVID, RSV, influenza a and B. * Patient has known asthma/COPD and mild CHF * Continue IV diuretics * Continue azithromycin, will stop Rocephin * Continue steroids * Continue DuoNebs (2) Acute exacerbation of COPD with asthma: Code(s): J44.1 - Chronic obstructive pulmonary disease with (acute) exacerbation; J45.901 - Unspecified asthma with (acute) exacerbation Status: Acute Assessment and Plan: * See above (3) Diastolic dysfunction: Code(s): I51.89 - Other ill-defined heart diseases Status: Acute Assessment and Plan: * BNP 331, unimpressive * Echo from 03/07/2023 showed normal systolic function with an estimated EF of 65-70%, grade 1 diastolic dysfunction * Continue Bumex * Monitor I&O * Monitor daily weights (4) Hypertension: Qualifiers: Hypertension type: primary hypertension Qualified Code(s): I10 - Essential (primary) hypertension Code(s): I10 - Essential (primary) hypertension Status: Chronic Assessment and Plan: * Blood pressure ranging 127/69 to 166/78 * Not on any home meds other than Bumex * Continue to trend after treating anxiety (5) Anxiety: Code(s): F41.9 - Anxiety disorder, unspecified Status: Acute Assessment and Plan: * Family reporting increased panic attacks at home ever since losing her on September 16 of this year. They were 69 years and everything has been overwhelming. * Continue Lexapro * Will add Xanax Plan History of EVELYN, utilizes CPAP. Ordered. Diet: Heart healthy GI Prophylaxis: Not currently indicated DVT Prophylaxis: SCDs Lines: Peripheral Code Status: Full code Time Spent With Patient Time with patient: Greater than 35 minutes Subjective Date/time seen: 01/03/24 11:53 Interval history: Interval history: This is an 88 year old female who presented to the hospital with SOB and orthopnea. Work up in the hospital included a chest CTA which was negative for PE, shown a moderate pulmonary embolus, mediastinal lymphadenopathy, trace pericardial effusion. Chest x-ray showed mild interstitial pulmonary edema. Initial labs shown a white blood cell count of 10.3 sodium 132 magnesium 3.1, troponin negative, proBNP 331. EKG showed normal sinus rhythm with a rate of 92, QTC 451. Respiratory panel was negative for influenza a and B, RSV, COVID. Patient was given Lasix, albuterol, Atrovent, Rocephin and azithromycin while in the ED. Subjective: Patient denies any fever, chills, nausea, vomiting, diarrhea, abdominal pain, chest pain, shortness a breath at this time. Son is in the room and reported that they loss his father back on September 16 and Pat has been having a difficult time since that happened considering the were for 69 years. Things get overwhelming and she has been having panic attacks which leads to asthma exacerbations. She is currently on Lexapro but that doesn't seem to help stop the panic attacks. Review of Systems Review of Systems: All systems reviewed & are unremarkable except as noted in HPI and below Constitutional: Constitutional: Reports as per HPI and Reports no additional constitutional complaints Eyes: Eyes: Reports as per HPI and Reports no additional eye complaints ENT: Reports system reviewed and no additional complaints, except as documented and Reports as per HPI Cardiovascular: Cardiovascular: Reports as per HPI and Reports no additional cardiovascular complaints Respiratory: Respiratory: Reports as per HPI and Reports no additional respiratory complaints Gastrointestinal: Gastrointestinal: Reports as per HPI and Reports no additional gastrointestinal complaints Genitourinary: Genitourinary: Reports no additional female genitourinary complaints and Reports as per HPI Musculoskeletal: Musculoskeletal: Reports no additional musculoskeletal complaints and Reports as per HPI Integumentary/Breasts: Skin/Breast: Reports system reviewed and no additional complaints, except as docu and Reports as per HPI Neurologic: Reports system reviewed and no additional complaints, except as documented and Reports as per HPI Psychiatric: Psychiatric: Reports no additional psychiatric complaints and Reports as per HPI Exam Narrative: General: In no acute distress, well nourished Head: atraumatic, no encephalopathy Eyes: PERRLA, sclera clear ENT: moist mucous membranes, nasal passages clear Neck: supple, no JVD, no adenopathy, trachea midline Cardiac: Normal S1 and S2. No murmur, gallops or friction rubs, peripheral pulses intact. Respiratory: Lungs clear to auscultation, no adventitious lung sounds, currently on room air. Reports productive cough. Gastrointestinal: soft, non-distended, non-tender, normoactive bowel sounds. : voiding without difficulty. Extremities: moves all extremities well, no edema, good ROM, strength 5/5 Skin: clean, dry, intact. No wounds or lesions. Neuro: Alert and oriented x4, cranial nerves intact, no neuro deficits. Psych: normal mood, normal affect, interactive, tearful at times Objective Data Vital Signs Vital Signs: Vital Signs - 24 hr 01/02/24 14:49 01/02/24 15:06 01/02/24 15:15 Temperature 97.8 F Pulse Rate 112 H Respiratory Rate 24 H Blood Pressure 153/84 H Pulse Oximetry 92 95 95 Oxygen Delivery Nasal Cannula Nasal Cannula Nasal Cannula Oxygen Flow Rate 4 4 4 Fraction of Inspired Oxygen 36 01/02/24 15:15 01/02/24 16:16 01/02/24 16:16 Temperature Pulse Rate 88 103 H Respiratory Rate 20 22 H Blood Pressure Pulse Oximetry 96 Oxygen Delivery Nasal Cannula Oxygen Flow Rate 3 Fraction of Inspired Oxygen 32 01/02/24 16:26 01/02/24 17:43 01/02/24 18:36 Temperature Pulse Rate 102 H 100 Respiratory Rate 19 15 Blood Pressure 133/57 L 125/72 Pulse Oximetry 96 98 96 Oxygen Delivery Nasal Cannula Oxygen Flow Rate 2 Fraction of Inspired Oxygen 01/02/24 20:54 01/02/24 20:00 01/02/24 21:11 Temperature 98.1 F Pulse Rate 97 Respiratory Rate 16 Blood Pressure 127/69 Pulse Oximetry 97 94 97 Oxygen Delivery Nasal Cannula Nasal Cannula Oxygen Flow Rate 2 2 Fraction of Inspired Oxygen 01/02/24 21:11 01/02/24 20:51 01/02/24 21:14 Temperature Pulse Rate 103 H 92 Respiratory Rate 18 18 Blood Pressure Pulse Oximetry Oxygen Delivery Autopap Oxygen Flow Rate Fraction of Inspired Oxygen 01/02/24 22:20 01/03/24 00:00 01/03/24 02:56 Temperature Pulse Rate 96 93 Respiratory Rate 14 15 Blood Pressure Pulse Oximetry Oxygen Delivery Autopap Autopap Oxygen Flow Rate Fraction of Inspired Oxygen 01/03/24 02:56 01/03/24 04:00 01/03/24 05:40 Temperature 98.7 F Pulse Rate 93 119 H 91 Respiratory Rate 15 16 Blood Pressure 166/78 H Pulse Oximetry 94 Oxygen Delivery Oxygen Flow Rate Fraction of Inspired Oxygen 01/03/24 08:39 01/03/24 08:39 01/03/24 08:47 Temperature Pulse Rate 88 86 Respiratory Rate 22 H 22 H Blood Pressure Pulse Oximetry 94 Oxygen Delivery Room Air Oxygen Flow Rate Fraction of Inspired Oxygen 01/03/24 08:20 Temperature Pulse Rate Respiratory Rate Blood Pressure Pulse Oximetry 94 Oxygen Delivery Room Air Oxygen Flow Rate Fraction of Inspired Oxygen Intake/Output Intake/Output: Intake & Output 12/31/23 01/01/24 01/02/24 01/03/24 23:59 23:59 23:59 23:59 Intake Total 300 680 Output Total 1300 Balance 300 -620 Meds/Results Medications: Active Medications Generic Name Dose Route Start Last Admin Trade Name Freq PRN Reason Stop Dose Admin Acetaminophen 650 mg 01/02/24 21:17 Acetaminophen 325 Mg Tablet PO Q6H PRN Pain and fever Albuterol 2 puff 01/02/24 21:30 01/03/24 08:40 Albuterol Sulfate (*Sp) Aerosol 1 Puff INHALATION Not Given QIDRT NICK Albuterol/Ipratropium 3 ml 01/02/24 20:00 01/03/24 08:36 Ipratropium 0.5 Mg/Albuterol Sulfate 2.5 Mg Ampul.Neb 3 Ml INHALATION 3 ml Q6HRT NICK Administration Azithromycin 500 mg 01/03/24 09:00 01/03/24 08:17 Azithromycin 250 Mg Tablet PO 500 mg DAILY NICK Administration Bumetanide 1 mg 01/03/24 09:00 01/03/24 08:20 Bumetanide Inj 1 Mg/4 Ml Vial IV PUSH 1 mg BID NICK Administration Fluticasone Propionate 2 spray 01/02/24 21:30 01/03/24 08:20 Fluticasone Propionate 0.05% Na Spr 16 Gm Btl (*Bkc) NASAL 2 spray BID NICK Administration Guaifenesin 600 mg 01/02/24 21:00 01/03/24 08:17 Guaifenesin 12 Hr 600 Mg Tabcr PO 600 mg Q12HR NICK Administration Guaifenesin/Dextromethorphan 10 ml 01/03/24 08:35 01/03/24 09:58 Guaifenesin/Dextromethorphan 10 Ml Udc PO 10 ml Q4H PRN Administration Cough Ipratropium [place] 2 spray 01/03/24 09:00 01/03/24 08:18 Ipratropium Nasal [place] 0.03% 15 Ml Bottle NASAL 2 spray TID NICK Administration Multivitamins Therapeutic 1 tablet 01/03/24 09:00 01/03/24 08:17 Multivitamins Therapeutic Tab (*Bkc) PO 1 tablet DAILY NICK Administration Ondansetron HCl 4 mg 01/02/24 18:13 Ondansetron Inj 4 Mg/2 Ml Vial IV PUSH Q4H PRN Nausea Pantoprazole Sodium 40 mg 01/02/24 21:30 01/03/24 08:17 Pantoprazole 40 Mg Tablet PO 40 mg BID NICK Administration Prednisone 40 mg 01/03/24 08:00 01/03/24 08:17 Prednisone 20 Mg Tablet PO 01/08/24 07:59 40 mg DAILY@0800 NICK Administration Fluticasone/Salmeterol 2 puff 01/03/24 08:00 01/03/24 08:36 Fluticasone/Salmeterol 115-21 Mcg Inhaler 1 Puff INHALATION 2 puff Q12HRT NICK Administration Sertraline HCl 150 mg 01/03/24 09:00 01/03/24 08:17 Sertraline Hcl 50 Mg Tablet PO 150 mg DAILY NICK Administration Vitamin B Complex 1 cap 01/03/24 09:00 01/03/24 08:17 Vitamin B Complex Capsule PO 1 cap DAILY NICK Administration Radiology Results: ITS Impressions Chest X-Ray 01/02/24 15:47 IMPRESSION: Segmental airspace disease in the left medial lower lung, may represent focal alveolar edema, atelectasis, or consolidation of infection. Moderate interstitial pulmonary edema. Chest CTA 01/02/24 17:34 IMPRESSION: No CT evidence of acute pulmonary embolus. Moderate pulmonary edema. Mediastinal lymphadenopathy. Trace pericardial effusion. Labs Labs: Laboratory Results - last 24 hr 01/02/24 01/02/24 01/03/24 15:00 15:04 05:46 WBC 10.3 H 8.2 RBC 4.86 4.32 Hgb 14.6 12.7 Hct 42.9 37.4 MCV 88.3 86.6 MCH 30.0 29.4 MCHC 34.0 34.0 RDW 15.5 H 15.6 H Plt Count 209 185 MPV 11.1 H 11.6 H Immature Gran % (Auto) 0.3 0.2 Neut % (Auto) 53.0 87.7 H Lymph % (Auto) 38.7 7.2 L [place] % (Auto) 6.7 4.8 Eos % (Auto) 0.9 0.0 Baso % (Auto) 0.4 0.1 L Lymph # (Auto) 3.97 H 0.59 L [place] # (Auto) 0.7 H 0.4 Eos # (Auto) 0.1 0.0 Baso # (Auto) 0.0 0.0 Abs Immat Gran (auto) 0.03 0.02 Absolute Neuts (auto) 5.4 7.2 H Absolute Nucleated RBC 0.000 0.000 Nucleated RBC % 0.0 0.0 PT 12.7 INR 0.9 APTT 25.0 Puncture Site Left radial ABG pH 7.397 ABG pCO2 35.2 ABG pO2 62.2 L ABG PO2/FiO2 Ratio 1.73 ABG HCO3 21.2 L ABG O2 Saturation 92.0 L ABG O2 Content 19.0 ABG Base Excess -2.9 A-a Gradient 153.7 Oxyhemoglobin 90.0 Total Hemoglobin 15.0 O2 Delivery Device Nasal cannula O2 Liters/Min 4.0 FiO2 36 Sodium 132 L 132 L Potassium 3.7 3.7 Chloride 95 L 98 Carbon Dioxide 29 27 Anion Gap 8 7 BUN 18 H 20 H Creatinine 0.90 0.90 Estim Creat Clear Calc 38 38 Estimated GFR 59 59 Glucose 127 H 144 H Calcium 9.4 9.1 Magnesium 3.1 H Total Bilirubin 0.5 AST 35 ALT 20 Alkaline Phosphatase 83 Troponin I < 0.012 NT-Pro-B Natriuret Pep 331 H Total Protein 8.0 Albumin 4.4 Influenza A (RT-PCR) Influenza B (RT-PCR) RSV (RT-PCR) SARS-CoV-2 RNA (RT-PCR) 01/03/24 08:35 WBC RBC Hgb Hct MCV MCH MCHC RDW Plt Count MPV Immature Gran % (Auto) Neut % (Auto) Lymph % (Auto) [place] % (Auto) Eos % (Auto) Baso % (Auto) Lymph # (Auto) [place] # (Auto) Eos # (Auto) Baso # (Auto) Abs Immat Gran (auto) Absolute Neuts (auto) Absolute Nucleated RBC Nucleated RBC % PT INR APTT Puncture Site ABG pH ABG pCO2 ABG pO2 ABG PO2/FiO2 Ratio ABG HCO3 ABG O2 Saturation ABG O2 Content ABG Base Excess A-a Gradient Oxyhemoglobin Total Hemoglobin O2 Delivery Device O2 Liters/Min FiO2 Sodium Potassium Chloride Carbon Dioxide Anion Gap BUN Creatinine Estim Creat Clear Calc Estimated GFR Glucose Calcium Magnesium Total Bilirubin AST ALT Alkaline Phosphatase Troponin I NT-Pro-B Natriuret Pep Total Protein Albumin Influenza A (RT-PCR) Negative Influenza B (RT-PCR) Negative RSV (RT-PCR) Negative SARS-CoV-2 RNA (RT-PCR) Negative Quality VTE Prophylaxis VTE prophylaxis: mechanical ordered
[2024-01-03] MEDS: ALPRAZolam (*CRX) 0.25 MG TABLET PO ×2 (15:22→21:07)
[2024-01-03] MEDS: ACETAMINOPHEN 325 MG TABLET 650 MG PO (15:24)
[2024-01-04] VITALS (13 sets, daily range): BP systolic 125–136; BP diastolic 51–60; PULSE 67–90; RESP 16–18; TEMP 36.3–36.6; O2SAT 96–100
[2024-01-04] MEDS: IPRATROPIUM 0.5 MG/ALBUTEROL SULFATE 2.5 MG AMPUL.NEB 3 ML INHALATION ×3 (01:22→13:49)
[2024-01-04] MEDS: FLUTICASONE/SALMETEROL 115-21 MCG INHALER 1 PUFF 2 PUFF INHALATION (07:38)
[2024-01-04] MEDS: predniSONE 20 MG TABLET 40 MG PO (08:08)
[2024-01-04] MEDS: SERTRALINE HCL 50 MG TABLET 150 MG PO (08:08)
[2024-01-04] MEDS: BUMETANIDE INJ 1 MG/4 ML VIAL IV PUSH (08:08)
[2024-01-04] MEDS: MULTIVITAMINS THERAPEUTIC TAB (*BKC) 1 TABLET PO (08:09)
[2024-01-04] MEDS: guaiFENesin 12 HR 600 MG TABCR PO (08:09)
[2024-01-04] MEDS: PANTOPRAZOLE 40 MG TABLET PO (08:09)
[2024-01-04] MEDS: VITAMIN B COMPLEX CAPSULE 1 CAP PO (08:09)
[2024-01-04] MEDS: AZITHROMYCIN 250 MG TABLET 500 MG PO (08:09)
[2024-01-04] MEDS: IPRATROPIUM NASAL SPRAY 0.03% 15 ML BOTTLE 2 SPRAY NASAL ×2 (08:10→12:43)
[2024-01-04] MEDS: FLUTICASONE PROPIONATE 0.05% NA SPR 16 GM BTL (*BKC) 2 SPRAY NASAL (08:10)
[2024-01-04 08:34] LABS: Basophils Percent Auto 0.2 % (0.2-1.2); Eosinophils Percent Auto 0.2 % (0-4.4); Hematocrit 38.4 % (37.0-47.0); Immature Granulocyte Absolute 0.03 K/mm3 (0.00-0.031); Immature Granulocyte Percent A 0.2 % (0-0.5); Lymphocytes Absolute Auto 3.12 K/mm3 (0.9-3.2); Lymphocytes Percent Auto 24.5 % (18.3-44.2); Mean Corpuscular HGB Conc 33.9 g/dl (32-36); Mean Corpuscular Hemoglobin 29.5 pg (26-34); Mean Corpuscular Volume 87.3 fl (80-100); Mean Platelet Volume 10.7 fl (7.4-10.4); Monocytes Absolute Auto 0.9 K/mm3 (0.1-0.6); Monocytes Percent Auto 7.1 % (2.6-8.5); Neutrophils Absolute Auto 8.6 K/mm3 (1.3-6.7); Neutrophils Percent Auto 67.8 % (45.5-73.1); Platelet Count Result 194 k/mm3 (150-375); Red Cell Distribution Width 16.3 % (11.5-14.5); White Blood Count 12.7 K/mm3 (4.5-10.0)
[2024-01-04 08:56] LABS: Alanine Aminotransferase 19 U/L (6-35); Albumin Level 3.9 g/dL (3.5-5.1); Alkaline Phosphatase 71 U/L (38-126); Anion Gap 7 mmol/L (4-12); Aspartate Amino Transferase 33 U/L (14-36); Bilirubin,Total 0.7 mg/dL (0.2-1.3); Blood Urea Nitrogen 17 mg/dL (7-17); Carbon Dioxide 30 mmol/L (22-30); Chloride 94 mmol/L (98-107); Estimated CRCL calculation 35 ml/min; Estimated Glomerular Filt Rate 52; Glucose 101 mg/dL (65-110); Potassium 3.5 mmol/L (3.4-5.0); Sodium 131 mmol/L (137-145)
--- NOTE | 2024-01-04 11:40 | P.DS_ITS ---
DS: Admitting Diagnosis Discharge Date 01/04/24 Admitting Diagnosis Acute respiratory failure with hypoxia Acute exacerbation of COPD and asthma diastolic dysfunction hypertension DS: Discharge Diagnosis Discharge Diagnosis (1) Acute respiratory failure with hypoxia: Code(s): J96.01 - Acute respiratory failure with hypoxia Status: Acute (2) Acute exacerbation of COPD with asthma: Code(s): J44.1 - Chronic obstructive pulmonary disease with (acute) exacerbation; J45.901 - Unspecified asthma with (acute) exacerbation Status: Acute (3) Diastolic dysfunction: Code(s): I51.89 - Other ill-defined heart diseases Status: Acute (4) Hypertension: Qualifiers: Hypertension type: primary hypertension Qualified Code(s): I10 - Essential (primary) hypertension Code(s): I10 - Essential (primary) hypertension Status: Chronic (5) Anxiety: Code(s): F41.9 - Anxiety disorder, unspecified Status: Acute DS: Summary Hospital Course Reason for hospitalization: Acute respiratory failure with hypoxia Acute exacerbation of COPD and asthma diastolic dysfunction hypertension Hospital Course: This is an 88 year old female who presented to the hospital with SOB and o rthopnea. Work up in the hospital included a chest CTA which was negative for PE, shown a moderate pulmonary embolus, mediastinal lymphadenopathy, trace pericardial effusion. Chest x-ray showed mild interstitial pulmonary edema. Initial labs shown a white blood cell count of 10.3 sodium 132 magnesium 3.1, troponin negative, proBNP 331. EKG showed normal sinus rhythm with a rate of 92, QTC 451. Respiratory panel was negative for influenza a and B, RSV, COVID. Patient was given Lasix, albuterol, Atrovent, Rocephin and azithromycin while in the ED. She states she is feeling much better today and is ready to be discharged. Labs unremarkable. VSS, she is afebrile, currently on room air. She is stable for discharge at this time. Patient recently lost of 69 years and has been having anxiety/panic attacks at home when she is feeling overwhelmed. She is currently on Lexapro and we started Xanax temporarily for her until she can get re-established with a primary care doctor who can help manage her medications appropriately. She is also a patient of Dr. Oseguera pulmonolgi and she will follow outpatient with her in the next 2 weeks considering her asthma exacerbation. She was discharged with Azithromycin and steroid taper. She has inhalers, nebulizer, and duonebs at home as well that she will continue use as appropriate. final diagnosis: acute respiratory failure with hypoxia, asthma exacerbation, situational anxiety. Status at Discharge Cognitive/behavioral status at discharge: Alert and oriented x3 Functional status at discharge: uses cane/walker Overall status at discharge: patient is progressing back to baseline Time Spent with Patient Time attestation: Total time spent providing and/or coordinating discharge services: Time spent: Greater than 30 minutes Exam Narrative: General: In no acute distress, well nourished Cardiac: Normal S1 and S2. No murmur, gallops or friction rubs, peripheral pulses intact. Respiratory: Lungs clear to auscultation, no adventitious lung sounds, currently on room air. Reports productive cough. Gastrointestinal: soft, non-distended, non-tender, normoactive bowel sounds. : voiding without difficulty. Extremities: moves all extremities well, no edema Skin: clean, dry, intact. No wounds or lesions. Neuro: Alert and oriented x4 DS: Data Data Completed and Pending Completed studies during hospitalization: Chest CTA Chest x-ray Pending studies at discharge: None Labs on day of discharge: Labs from last 24 hours 01/04/24 08:25 WBC 12.7 H RBC 4.40 Hgb 13.0 Hct 38.4 MCV 87.3 MCH 29.5 MCHC 33.9 RDW 16.3 H Plt Count 194 MPV 10.7 H Immature Gran % (Auto) 0.2 Neut % (Auto) 67.8 Lymph % (Auto) 24.5 [place] % (Auto) 7.1 Eos % (Auto) 0.2 Baso % (Auto) 0.2 Lymph # (Auto) 3.12 [place] # (Auto) 0.9 H Eos # (Auto) 0.0 Baso # (Auto) 0.0 Abs Immat Gran (auto) 0.03 Absolute Neuts (auto) 8.6 H Absolute Nucleated RBC 0.000 Nucleated RBC % 0.0 Sodium 131 L Potassium 3.5 Chloride 94 L Carbon Dioxide 30 Anion Gap 7 BUN 17 Creatinine 1.00 Estim Creat Clear Calc 35 Estimated GFR 52 L Glucose 101 Calcium 9.0 Total Bilirubin 0.7 AST 33 ALT 19 Alkaline Phosphatase 71 Total Protein 7.0 Albumin 3.9 Procedures/Treatments: None Discharge Plan Discharge Attending physician on discharge: Sarita Denny Discharging Clinician: Brittany Edmond Anticipated Discharge Date/Time: 01/04/24 08:09 Patient Disposition: Home, Self-Care Activity: as tolerated Diet: as tolerated and heart healthy Discharge Instructions: * Finish prednisone taper as directed * Finish all antibiotic as directed * Follow up with primary care doctor in 1-2 weeks * Dr. Micheal Rodriguez is accepting new patients, call him to establish care. * Continue Robitussin DM over the counter for cough * You were started on Xanax 0.25 mg for your anxiety/panic attacks. Talk with your primary care doctor about this. They may want to adjust your medications. * Continue Metoprolol as this was not listed on your home medication list here in the hospital. Patient Instructions: Antibiotic Form, Azithromycin (By mouth), Heart Failure (GEN), Asthma (DC), Bronchospasm (GEN), Acute Respiratory Failure (GEN) Patient Language: Trinidadian Stand Alone Forms: General Discharge Information Follow-up/Referrals: Lien Oseguera MD [Physician] - 2 Weeks Discharge Medications: New alprazolam 0.25 mg Tablet 0.25 mg PO TID PRN (Reason: Anxiety) Qty: 30 0RF azithromycin [Zithromax] 250 mg Tablet 500 mg PO DAILY Qty: 3 0RF prednisone 10 mg tablet 10 mg PO DIRECTED Qty: 26 0RF Rx Instructions: see taper instructions Take 40 mg for next 2 days, Then take 30 mg for 3 days, Then take 20 mg for 3 days, Then take 10 mg for 3 days, Then stop Continued vitamin B complex [B Complex-Vitamin B12] Tablet 1 tablet PO DAILY multivitamin [Daily Multi-Vitamin] Tablet 1 tablet PO DAILY ipratropium-albuterol 0.5 mg-3 mg(2.5 mg base)/3 mL solution for nebulization 3 ml inhalation Q6H PRN (Reason: shortness of breath or wheezing) Qty: 360 3RF sertraline [Zoloft] 50 mg tablet 150 mg PO DAILY Qty: 270 1RF albuterol sulfate [Ventolin HFA] 90 mcg/actuation Hfa Aerosol Inhaler 2 puff INHALATION QID acetaminophen 325 mg tablet 650 mg PO Q6H PRN (Reason: Pain and fever) bumetanide 2 mg tablet 1 mg PO DAILY Rx Instructions: TAKE ONE-HALF TABLET BY MOUTH DAILY budesonide-formoterol [Symbicort] 160-4.5 mcg/actuation HFA aerosol inhaler 2 puff inhalation BID Rx Instructions: INHALE 2 PUFFS BY MOUTH EVERY 12 HOURS. fluticasone propionate 50 mcg/actuation spray,suspension 2 spray NASAL BID Qty: 15.8 3RF Rx Instructions: administer into each nostril pantoprazole 40 mg tablet,delayed release (DR/EC) 40 mg PO BID Qty: 180 1RF ipratropium bromide 21 mcg (0.03 %) spray,non-aerosol 2 spray intranasal TID Qty: 90 0RF Rx Instructions: administer into each nostril. Aim back/up/out Date of admission: 01/03/24 10:22 Primary Care Provider: Mark العلي Admitting Provider: Sarita Denny Attending physician on admission: Brittany Edmond Condition: Improved Quality VTE Prophylaxis VTE prophylaxis: mechanical ordered Hospitalist MIPS Heart Failure (Exclusion) Patient has history of Heart Transplant or Left Ventricular Assistive Device?: No IF YES, STOP HERE Heart Failure (Qualifier) Patient has current or prior documentation of LVEF less than or equal to 40%, or mod/servere depressed LVSF?: No IF NO, STOP HERE
[2024-01-04] MEDS: ALPRAZolam (*CRX) 0.25 MG TABLET PO (11:48)
== END 2024-01-04 15:30 | disposition home or self-care (01) | DRG 190 ==
LOC: ANHED 15:01 → ANH3MEDSUR 18:59
PROVIDERS: Emergency Medicine; Student in an Organized Health Care Education/Training Program; Admitting Provider Internal Medicine; Emergency Provider Physician Assistant; PCP Family Medicine; Visit Provider Nurse Practitioner Acute Care
DX: J44.1 Chronic obstructive pulmonary disease with (acute) exacerbation (principal); J96.01 Acute respiratory failure with hypoxia; E87.1 Hypo-osmolality and hyponatremia; J45.901 Unspecified asthma with (acute) exacerbation; I50.9 Heart failure, unspecified; J32.9 Chronic sinusitis, unspecified; I11.0 Hypertensive heart disease with heart failure; D50.9 Iron deficiency anemia, unspecified; M17.0 Bilateral primary osteoarthritis of knee; G47.33 Obstructive sleep apnea (adult) (pediatric); F32.A Depression, unspecified; F41.9 Anxiety disorder, unspecified; Z20.822 Contact with and (suspected) exposure to COVID-19; Z79.01 Long term (current) use of anticoagulants; Z86.718 Personal history of other venous thrombosis and embolism; Z86.0101 Personal history of adenomatous and serrated colon polyps; Z85.3 Personal history of malignant neoplasm of breast; Z86.711 Personal history of pulmonary embolism; Z87.891 Personal history of nicotine dependence
CPT/HCPCS: 36415; 36600; 71045; 71275; 80048; 80053; 82805; 83735; 83880; 84484; 85018; 85025; 85610; 85730; 87637; 93005; 94640; 96365; 96367; 96375; 99285; A9270; G0378; J0456; J0696; J1939; J1940; J7512; Q9967

== ENCOUNTER 2024-01-20 16:29 | Outpatient (CLI) | payer MEDICARE, OTHER, SELFPAY ==
[2024-01-20 17:46] LABS: Hematocrit 38.5 % (37.0-47.0); Hemoglobin 12.6 g/dL (12.0-15.0); Mean Corpuscular HGB Conc 32.7 g/dl (32-36); Mean Corpuscular Hemoglobin 29.9 pg (26-34); Mean Corpuscular Volume 91.2 fl (80-100); Platelet Count Result 153 k/mm3 (150-375); Red Blood Count 4.22 M/mm3 (4.2-5.4); Red Cell Distribution Width 16.3 % (11.5-14.5); White Blood Count 7.9 K/mm3 (4.5-10.0)
[2024-01-20 17:57] LABS: INR 0.9; Prothrombin Time 12.6 Seconds (11.1-14.7)
== END 2024-01-20 16:30 | disposition home or self-care (01) ==
LOC: ANHLAB 16:33
PROVIDERS: PCP Family Medicine; Visit Provider Nurse Practitioner
DX: K92.1 Melena (principal)
CPT/HCPCS: 36415; 85027; 85610

== ENCOUNTER 2024-04-12 12:22 | Emergency (ER) | payer MEDICARE, OTHER, SELFPAY ==
[2024-04-12 12:47] VITALS: BP 181/71; PULSE 78; RESP 32; TEMP 36.8; O2SAT 98
--- NOTE | 2024-04-12 13:08 | ED.URI ---
HPI - URI/Sore Throat General Chief Complaint: Upper Respiratory Infection Stated Complaint: Cough/Trouble Breathing Source: patient Mode of arrival: ambulatory Limitations: no limitations History of Present Illness HPI Narrative: 88-year-old female with history of COPD and CHF presented for complaint of shortness of breath and cough worsening over the past 2 days. Endorses chronic leg swelling. Pt was sob at rest on arrival, Resps 34. O2 sat 96. Advised ER transfer via EMS. Related Data Home Medications ?Medication ?Instructions ?Recorded ?Confirmed ?Last Taken ?Type albuterol sulfate 90 mcg/actuation 2 puff inhalation QID 03/16/23 03/21/24 Unknown History aerosol inhaler (Ventolin HFA) multivitamin (Daily Multi-Vitamin 1 tablet PO DAILY 04/14/23 03/21/24 Unknown History tablet) vitamin B complex (B 1 tablet PO DAILY 04/14/23 03/21/24 Unknown History Complex-Vitamin B12 tablet) acetaminophen 325 mg tablet 650 mg PO Q6H PRN Pain and fever 04/23/23 03/21/24 Unknown History budesonide-formoterol HFA 160 2 puff inhalation BID 01/02/24 03/21/24 Unknown History mcg-4.5 mcg/actuation aerosol inhaler (Symbicort) bumetanide 2 mg tablet 1 mg PO DAILY 01/02/24 03/21/24 Unknown History Allergies Allergy/AdvReac Type Severity Reaction Status Date / Time lisinopril Allergy Intermediate Hives Verified 04/12/24 13:32 codeine Allergy Unknown Unknown- Verified 04/12/24 13:32 UNABLE TO RECAL Review of Systems Review of Systems: On arrival, reports SOB and cough; denies chest pain or palpitations All systems reviewed & are unremarkable except as noted in HPI and below PMFSH Past Medical History Medical History Pancreatitis History of esophageal dilatation Nonallergic rhinitis Refusal of blood transfusions as patient is Spiritism DVT (deep venous thrombosis) Chronic anticoagulation GI bleed Pulmonary embolism Chronic hyponatremia Diastolic dysfunction Asthma Hypertension Anemia Adenomatous colon polyp EVELYN (obstructive sleep apnea) Insomnia Port-A-Cath in place (~2017) Chronic sinusitis Degenerative arthritis of knee, bilateral Depression Osteoarthritis of right knee (Unknown) Anxiety Estrogen receptor positive status (ER+) Iron deficiency anemia due to chronic blood loss 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, estrogen receptor positive Surgical History Surgical History History of hysterectomy History of cataract extraction with lens replacement History of bladder surgery Bladder tie up x2 History of cholecystectomy S/P nasal surgery History of right mastectomy History of right knee surgery History of hernia repair Family History Family History Father Family history of diabetes mellitus in first degree relative Family history of coronary artery disease Patient's father is in good health Mother Family history of lung cancer Sibling Family history of lung cancer Family history of malignant neoplasm of brain, Onset Age: 60 Other Diabetes mellitus Family history of cardiovascular disease Family history of kidney disease Social History Social History Social History: Surrogate medical decision maker: Urbano Bailey, son. Code status: Full code. Smoking packs per day: 0.5 Smoking cigarettes per day: 10.0 Years smoked: 20 Smoking pack-years: 10.00 Smoking status: Never smoker Second hand tobacco smoke exposure: No Additional smoking assessment comments: STATES <PK/DAY/3YRS Alcohol intake: current Drinks per week: 3 Alcohol use details: DRINK Substance use: never Substance use type: does not use Do You Feel Safe in your Home?: Yes Lack of Transportation: No Lack of Food: Never True Current Housing: I Have Housing Concerned About Future Housing: No Difficulty Paying Gas/Electric Bills: No Difficulty Paying for Meds: No Currently Unemployed: No Education: High School Diploma/GED Difficulty w/ Childcare or Family Care: No Living arrangements: with family Additional living arrangements comments: LIVES WITH SPOUSE AMOS Occupation/Education: retired Spiritual care concerns: No Agree to blood products: No Comments At time of signature, I have reviewed and agree with nursing past medical, surgical, social and family history unless otherwise noted. Please see nursing chart for further information. There is no relevant family history pertinent to the presenting complaint Exam Narrative: GENERAL: Chronically ill appearing CHEST: Frequent supervisor dock cough. Tachypnea. Lungs diminished to all chirinos. Speaks full sentences. HEART: Regular rate and rhythm. EXTREMITIES: 4+ pitting bilateral LE edema NEURO: Alert and oriented x3. Walking with cane. Course Course Emergency Course: Patient is aware of diagnosis, understands and agrees to treatment plan. Anticipatory guidance given. Patient agrees to follow-up as directed and is aware of reasons to seek care at the emergency department. Portions of this record may have been created with voice recognition software Level of Care: Express Care Visit Vital Signs Vital signs: Vital Signs Temperature 98.2 F 04/12/24 12:47 Pulse Rate 78 04/12/24 12:47 Respiratory Rate 32 H 04/12/24 12:47 Blood Pressure 181/71 H 04/12/24 12:47 Pulse Oximetry 98 04/12/24 12:47 Temperature 98.2 F 04/12/24 12:47 Pulse Rate 78 04/12/24 12:47 Respiratory Rate 34 H 04/12/24 13:24 Blood Pressure 181/71 H 04/12/24 12:47 Pulse Oximetry 97 04/12/24 13:24 Oxygen Delivery Nasal Cannula 04/12/24 13:24 Oxygen Flow Rate 4 04/12/24 13:24 MDM - URI/Sore Throat MDM Narrative Medical decision making narrative: Advised ER transfer on arrival, EMS contacted. Differential Diagnosis Differential diagnosis: Likely other (Angioedema, perforation, asthma, pneumonia, PE, tension pneumothorax, cardiac tamponade MS, pericarditis, pleural effusion, CHF, bronchitis, cardiac arrhythmia) Discharge Plan Discharge Clinical Impression: Shortness of breath Patient Disposition: Acute Care Hospital Condition: Stable Patient Language: Czech Prescriptions: No Action vitamin B complex [B Complex-Vitamin B12] Tablet 1 tablet PO DAILY multivitamin [Daily Multi-Vitamin] Tablet 1 tablet PO DAILY ipratropium-albuterol 0.5 mg-3 mg(2.5 mg base)/3 mL solution for nebulization 3 ml inhalation Q6H PRN (Reason: shortness of breath or wheezing) Qty: 360 3RF sertraline [Zoloft] 50 mg tablet 150 mg PO DAILY Qty: 270 1RF albuterol sulfate [Ventolin HFA] 90 mcg/actuation Hfa Aerosol Inhaler 2 puff INHALATION QID acetaminophen 325 mg tablet 650 mg PO Q6H PRN (Reason: Pain and fever) bumetanide 2 mg tablet 1 mg PO DAILY Rx Instructions: TAKE ONE-HALF TABLET BY MOUTH DAILY budesonide-formoterol [Symbicort] 160-4.5 mcg/actuation HFA aerosol inhaler 2 puff inhalation BID Rx Instructions: INHALE 2 PUFFS BY MOUTH EVERY 12 HOURS. azithromycin [Zithromax] 250 mg Tablet 500 mg PO DAILY Qty: 3 0RF alprazolam 0.25 mg Tablet 0.25 mg PO TID PRN (Reason: Anxiety) Qty: 30 0RF prednisone 10 mg tablet 10 mg PO DIRECTED Qty: 26 0RF Rx Instructions: see taper instructions Take 40 mg for next 2 days, Then take 30 mg for 3 days, Then take 20 mg for 3 days, Then take 10 mg for 3 days, Then stop fluticasone propionate 50 mcg/actuation spray,suspension 2 spray NASAL BID Qty: 15.8 3RF Rx Instructions: administer into each nostril ipratropium bromide 21 mcg (0.03 %) spray,non-aerosol 2 spray intranasal TID Qty: 90 0RF Rx Instructions: administer into each nostril. Aim back/up/out pantoprazole 40 mg tablet,delayed release (DR/EC) 40 mg PO BID Qty: 180 1RF Follow-up/Referrals: PHYSICIAN,COMPUTER INSTRUCTOR [Primary Care Provider] -
[2024-04-12 13:24] VITALS: RESP 34; O2SAT 97
--- NOTE | 2024-04-12 13:37 | PC.NURSE ---
Patient transferred to [facility] for Respiratory Distress. Patient Transferred via EMS. Tried to call report to [facility] 2 times. Keep getting placed on hold with no answer after several minutes of waiting. Provider at [facility] aware patient is in route.
== END 2024-04-12 13:00 | disposition short-term general hospital (02) ==
PROVIDERS: Emergency Provider Nurse Practitioner Family
DX: R06.02 Shortness of breath (principal); J44.9 Chronic obstructive pulmonary disease, unspecified; I11.0 Hypertensive heart disease with heart failure; I50.9 Heart failure, unspecified; M17.0 Bilateral primary osteoarthritis of knee; F41.9 Anxiety disorder, unspecified; F32.A Depression, unspecified; Z86.718 Personal history of other venous thrombosis and embolism; Z86.711 Personal history of pulmonary embolism
CPT/HCPCS: 99215; G0463

== ENCOUNTER 2024-04-12 13:30 | Emergency (ER) | payer MEDICARE, OTHER, SELFPAY ==
[2024-04-12 13:35] VITALS: BP 146/76; PULSE 78; RESP 24; TEMP 36.8; O2SAT 99
--- OUTSIDE RECORDS SUMMARY | 2024-04-12 15:29 | XMS_ITS | Referral Summary ---
Author Organization [facility] Address [address] [place] [address] Care Team Providers Care Inspector Final Assembly Conveyor Line Name Role Phone Unavailable Primary Care Provider Unavailabl e Encounters Date Type Department Care Team Description 03/23/2024 12:45 PM FIBROUS WALLBOARD INSPECTOR Office Visit [facility] Ophthalmology [address] [place] [address] Linus Carolina, FANTASMA Early dry stage nonexudative age-related macular degeneration of both eyes (Primary Dx); Pseudophakia of both eyes 01/18/2024 Telephone [facility] Hematology [address] [place] [address] Ursula Santiago RN from Last 3 Months Allergies Active Allergy Reactions Criticality Noted Date Comments Codeine Hives Medium 02/26/2018 Lisinopril Hives Medium 03/20/2023 Medications ipratropium-alb uteroL (DUO-NEB) 0.5-2.5 mg/3 mL nebulizer solution INHALE [address] OF NEBULIZER TWICE DAILY NEEDED FOR SHORTNESS OF BREATH OR WHEEZING 0 Active albuterol HFA (PROVENTIL HFA,VENTOLIN HFA,PROAIR HFA) 90 mcg/actuation inhaler INHALE 2 PUFFS EVERY 4 HOURS NEEDED FOR WHEEZE OR FOR SHORTNESS OF BREATH 3 Active sertraline (ZOLOFT) 50 mg tablet Take 3 tablets (150 mg total) by mouth daily 4 Active azelastine (ASTELIN) 137 mcg (0.1 %) nasal spray Administer 1 spray into each nostril 2 (two) times a day 4 Active bumetanide (BUMEX) 2 mg tablet Take 0.5 tablets (1 mg total) by mouth daily 4 Active metoprolol XL (TOPROL-XL) 25 mg extended release tablet TAKE 2 TABLETS BY MOUTH DAILY 180 tablet 1 4 Active ALPRAZolam (XANAX) 0.25 mg tablet TAKE 1 TABLET BY MOUTH THREE TIMES A DAY NEEDED FOR ANXIETY 4 Active budesonide-form oteroL (SYMBICORT) 160-4.5 mcg/actuation inhaler Inhale 2 puffs 2 (two) times a day 5 Active hydrocortisone (ANUSOL-HC) 2.5 % rectal cream APPLY RECTALLY TWICE A DAY FOR 10 DAYS [address] (PROTONIX) 40 mg EC tablet Take 1 tablet (40 mg total) by mouth 2 (two) times a day 4 Active predniSONE (DELTASONE) 10 mg tablet PLEASE SEE ATTACHED FOR DETAILED DIRECTIONS 4 Active Active Problems Problem Noted Date Diagnosed Date Lesion of eyelid 07/01/2023 Assessment & Plan (07/01/2023 2:45 PM CDT): Images from the original note were not included. Schedule for consult with oculoplastics for excision. 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 Continue AREDS. Pt wants to seek care closer to home. Schedule for consult at [facility] in [place]. F/u here prn. Assessment & Plan (07/01/2023 2:46 PM CDT): Stable with no signs of exudative disease on exam today. F/u in 6 months for repeat DFE and mac OCT. ANG (iron deficiency anemia) 04/10/2023 Acute upper GI bleed 03/21/2023 Assessment & Plan (03/31/2023 3:09 PM FIBROUS WALLBOARD INSPECTOR): CT A/P GI bleed protocol on admission with 2 foci of arterial enhancement and blooming on delayed images in the 2nd and 3rd portions of the duodenum compatible with active extravasation. Hgb 4.5 (baseline 11, 11/2022) from 6 on 03/16. Iron deficient on presentation to OSH, iron deficiency resolved s/p IV repletion. B12 wnl. No hypotension. Pt is Lutheran and does not accept whole blood products. C/w was in the Hgb 4. Improving Hgb, now is 6.1 Last melena 03/31 - GI consulted: patient HDS and with hgb <5-6, prohibitive risk for anaesthesia required for endoscopic evaluation. - IR c/s: patient very high risk but can be offered angiogram/embolization; after discussion with patient, due to very high procedural risk and current stability, elected to closely monitor though will move forwards with angiogram if any clinical sign of decompensation. - Change IV PPI BID to PO EVELYN (obstructive sleep apnea) 03/21/2023 Assessment & Plan (03/21/2023 2:57 AM FIBROUS WALLBOARD INSPECTOR): - Home nightly CPAP Breast cancer 03/21/2023 Assessment & Plan (03/21/2023 2:59 AM FIBROUS WALLBOARD INSPECTOR): R breast CA (2018, ER+) s/p R mastectomy, chemotherapy, and radiation now on surveillance. Was on exemestane until recently, she reports Oncology stopped it due to concern about potential adverse effects. Pulmonary embolism 03/21/2023 Assessment & Plan (03/27/2023 6:23 PM FIBROUS WALLBOARD INSPECTOR): Hospitalized at OSH 01/2023 with RSV; shortly after discharge, readmitted with BLE edema and dyspnea and found to have DVT, PE. Started on Eliquis which was stopped 1 week ago due to melena, acute anemia. BLE Duplex 03/23 and 03/25 with no e/o RLE DVT and chronic to indeterminate LLE DVT. She is HDS. - Discuss with Hematology. Recommended to hold AC and IVC filter (no acute VTE). Dr Pérez will see pt as outpt - If S/s of acute VTE, she will need images, and if positive she may required IVC filter. - Consider repeat CTA Chest to assess extent of PE - holding all anticoagulation, will hold SCDs as well - Telemetry with SpO2 Asthma 03/21/2023 Assessment & Plan (04/01/2023 3:38 PM FIBROUS WALLBOARD INSPECTOR): Follows w/ OSH pulmonology. Mild expiratory wheezes on admission. Initial on 2L NC which has been weaned off. Dyspnea likely predominantly 2/2 hgb 4.5. Did have increased wheezing 2/5 AM though this resolved with duonebs and albuterol inhaler PRN CXR showed no PNM - albuterol inhaler PRN - Duonebs QID - Home ICS-LABA - patient with acute SOB and choking sensation 03/31 which resolved with reassurance, patient may have concomitant VCD Hypertension, essential 03/21/2023 Assessment & Plan (03/21/2023 3:14 AM FIBROUS WALLBOARD INSPECTOR): - Hold home diltiazem 120 mg daily, losartan 50 mg daily pending clinical course given acute GI bleed Anxiety 03/21/2023 Assessment & Plan (03/21/2023 3:15 AM FIBROUS WALLBOARD INSPECTOR): - Home sertraline Acute anemia 03/20/2023 Assessment & Plan (04/03/2023 10:45 AM FIBROUS WALLBOARD INSPECTOR): Due to GIB. No melena since 03/24. Hgb has been on the low 5s. She is Lutheran and does not accept whole blood products. S/p 500 IV iron x2 at OSH - Heme consulted: After risk/benefit discussion with patient and loved ones regarding increased risk of DVT/PE expansion with Epo, decision made to proceed with erythrocyte stimulating agent. Patient received Aranesp 400 mcg SQ on 03/20 and 300 mcg on 03/28. Plan is Aranesp 300 mcg qweekly - [facility] unable to provide Aranesp; giving additional dose 04/03 prior to d/c. - She has a follow up appoint with Dr Pérez on 04/16/2023 at 1:30pm. - Order weekly CBC outpatient and have the results faxed to Dr Péerz at [phone] Pseudophakia of both eyes 12/31/2022 Assessment & Plan (07/01/2023 2:46 PM CDT): Stable. Observe. Assessment & Plan (01/01/2023 9:08 AM FIBROUS WALLBOARD INSPECTOR): Stable. Observe. Diastolic heart failure 09/11/2021 Assessment & Plan (03/24/2023 6:44 PM FIBROUS WALLBOARD INSPECTOR): Chart history of diastolic dysfunction, appears hypervolemic on admission with small bilateral pleural effusions and 2+ pitting edema BLEs. No S/s CHF exacerbation - Hold home Bumex 4 mg PO daily pending clinical course given acute GI bleed - TTE- Normal LV size and systolic function Left posterior capsular opacification 04/22/2019 Assessment & Plan (01/01/2023 9:10 AM FIBROUS WALLBOARD INSPECTOR): Stable. Observe. Assessment & Plan (12/25/2021 4:22 PM FIBROUS WALLBOARD INSPECTOR): Mild. Stable. observe. Assessment & Plan (06/26/2021 4:08 PM CDT): Stable. Observe. Assessment & Plan (01/24/2021 12:27 PM FIBROUS WALLBOARD INSPECTOR): Minimal impact on bcva. Observe. Visual symptoms likely due to uncorrected refractive error. Update SRx. Assessment & Plan (04/22/2019 2:56 PM FIBROUS WALLBOARD INSPECTOR): Not yet impacting BCVA. Observe. Update SRx for reading. Retinal drusen of both eyes 04/22/2019 Assessment & Plan (01/01/2023 9:09 AM FIBROUS WALLBOARD INSPECTOR): Progressive non-exudative AMD with GA OU. Recommended pt start AREDS vitamin supplements. F/u in 6 months for repeat DFE with mac OCT. Assessment & Plan (07/03/2022 4:10 PM CDT): Stable on exam today. No e/o conversion to exudative disease. Continue to follow q6mos. Assessment & Plan (12/25/2021 4:22 PM FIBROUS WALLBOARD INSPECTOR): cuticular drusen OU. Low risk of conversion to exudative disease. Repeat dfe in 6 mos. Assessment & Plan (06/26/2021 4:08 PM CDT): No active exudative disease evident on exam and OCT today. Continue to follow q6mo. Assessment & Plan (01/24/2021 12:27 PM FIBROUS WALLBOARD INSPECTOR): Stable on exam. Will recheck OCT at f/u. Assessment & Plan (04/22/2019 2:55 PM FIBROUS WALLBOARD INSPECTOR): Small hard drusen OU. Mild. Annual exam. Exposure keratopathy 04/22/2019 Assessment & Plan (12/25/2021 4:22 PM FIBROUS WALLBOARD INSPECTOR): ATs prn. Assessment & Plan (04/22/2019 2:57 PM FIBROUS WALLBOARD INSPECTOR): Variable blur when reading likely due to ocular surface disruption/unstable tear film. Increase use of ATs before reading. Immunizations Immunization Administration Dates Next Due Influenza, Trivalent, Adjuva nted, Intramuscular 12/14/2018 Influenza, Unspecified 12/11/2022,2013,12/11/2012,11/27 Pneumococcal Polysaccharide PPV23 12/14/2018 Pneumococcal, Unspecified 12/05/2009 Social History Tobacco Use Types Packs/Day Years Used Date Smoking Tobacco: Never Passive Smoke Exposure: Never Smokeless Tobacco: Never Tobacco Cessation:Counseling Given: Not Answered Alcohol Use Standard Drinks/Week Comments Yes 0 (1 standard drink = 0.6 oz pur e alcohol) AUDIT-C Answer Date Recorded Q1: How often do you have a drink containing alc ohol? Monthly or less 06/24/2023 Q2: How many drinks containi ng alcohol do you have on a typical day when you are drinking? 1 or 2 06/24/2023 Q3: How often do you have si x or more drinks on one occasion? Monthly 06/24/2023 Personal Safety Answer Date Recorded Have you ever been in or are you currently in a harmful physical or emotional relationship or is someone making you feel afraid or unsafe? Denies 03/20/2023 Comments Unknown Sex and Gender Information Value Date Recorded Sex Assigned at Not on file Legal Sex Female 3:01 AM FIBROUS WALLBOARD INSPECTOR Gender Identity Not on file Sexual Orientation Not on file Last Filed Vital Signs Vital Sign Reading Time Taken Comments Blood Pressure 148/74 12/11/2023 2:22 PM CDT Pulse 61 12/11/2023 2:22 PM CDT Temperature 36.6 C (97.9 F) 11/19/2023 4:02 PM CDT Respiratory Rate 18 10/13/2023 10:31 AM CDT Oxygen Saturation 97% 12/11/2023 2:22 PM CDT Inhaled Oxygen Concentration - - Weight 74.8 kg (165 lb) 12/11/2023 2:22 PM CDT Height 162.6 cm (5' 4 ) 12/11/2023 2:22 PM CDT Body Mass Index 28.32 12/11/2023 2:22 PM CDT Plan of Treatment Scheduled Procedures Name Priority Associated Diagnoses Date/Ti me ESOPHAGOGASTRODUODENOSCOPY Open Access Acute anemia Procedures Procedure Name Priority Date/Time Associated Diagnosis Comments OCT, RETINA - OU - BOTH EYES Routine 03/23/2024 1:32 PM FIBROUS WALLBOARD INSPECTOR Early dry stage nonexudative age-related macular degeneration of both eyes from Last 3 Months Results * OCT, Retina - OU - Both Eyes (03/23/2024 1:32 PM FIBROUS WALLBOARD INSPECTOR) Anatomical Region Laterality Modality Head Optical Coherenc e Tomography Narrative 03/23/2024 1:32 PM FIBROUS WALLBOARD INSPECTOR Right Eye Quality was good. Scan locations included subfoveal. Progression has been stable. Findings include pigment epithelial detachment, subretinal scarring. Left Eye Quality was good. Progression has been stable. Findings include pigment epithelial detachment, subretinal scarring. Notes Slight SRF super to disc. Linus Carolina OD OPHTH TOMOGRAPHY Final Resu lt from Last 3 Months Insurance MEDICARE [address] & [facility] SUPPLEMENT MEDICARE COMMERCIAL GENERIC MEDICARE [place] [id number] [address] & [facility] SUPPLEMENT Advance Directives For more information, please contact: [phone] Documents on File Type Date Recorded Patient Cna Expl anation ADVANCE DIRECTIVE 04/07/2023 7:01 PM POWER OF SUPERVISOR LEAD REFINERY-MEDICAL * Full Code (Latest Code Status on File) Date Activated Date Inactivated Comments 03/20/2023 7:03 PM 04/03/2023 5:45 PM
--- OUTSIDE RECORDS SUMMARY | 2024-04-12 15:29 | XMS_ITS | Referral Summary ---
Author Organization [facility] Address [address] [place] [address] Care Team Providers Care Micro Photographer Name Role Phone Micheal Rodriguez MD Primary Care Provider [phone] Source Comments [facility],non-owned Affiliates and Associated Physician Practices is amultiple site organization consisting of ambulatory clinics and hospital sitesin [place], [place] and [place]. This disclosure is being madepursuant to the Care Everywhere program and may not contain all information available regarding this patient. Last updated 17.[facility] Encounters Date Type Department Care Team Description 03/15/2024 Travel 03/14/2024 Travel 03/14/2024 10:30 AM SALES EFFECTIVENESS MANAGER Office Visit [facility] - ENT [address] [place] [phone] Jimbo Canas MD Nasal congestion (Primary Dx); Rhinitis, unspecified type; Nasal septal spur; Chronic rhinitis; Post-nasal drip 02/03/2024 Travel from Last 3 Months Allergies Active Allergy Reactions Criticality Noted Date Comments Codeine Urticaria High 02/26/2018 Lisinopril Urticaria Medium 03/20/2023 Medications * Be aware that medications may not be up to date on this document. Alwaysverify current medications with the patient. Medication Sig Dispensed Refills Start Date End Date Status sertraline (Zoloft) 50 MG tablet Take 3 (three) tablets by mouth once daily Active metoprolol succinate XL 24hr (Toprol XL) 25 MG tablet Take 2 (two) tablets by mouth once daily Active bumetanide (Bumex) 1 MG tablet Take 1 (one) tablet by mouth 2 times daily 01/27/2024 Active budesonide-formote rol (Symbicort) 160-4.5 MCG/ACT inhaler Inhale 2 (two) puffs by mouth 2 times daily 02/18/2024 Active ferrous gluconate 324 (38 Fe) MG tablet Take 1 (one) tablet by mouth once daily Active albuterol HFA (Proventil; Ventolin; Proair) 108 (90 Base) MCG/ACT inhaler Inhale 2 (two) puffs by mouth every 6 hours as needed Active azelastine (Astelin) 0.1 % nasal spray [place] 1 (one) spray into each nostril 2 times daily 90 mL 4 03/14/2024 Active azelastine (Astelin) 0.1 % nasal spray [place] 1 (one) spray into the nose 2 times daily 02/16/2023 03/14/2024 Discontinued( List Clean-Up) Active Problems No known active problems Immunizations Name Administration Dates Next Due INFLUENZA VACCINE 12/11/2022, 4,12/11/2012,2011 INFLUENZA VACCINE, ADJUVANTE D, TRIV. (FLUAD TRIVALENT; 65Y+) (AIIV3) 12/14/2018 PNEUMOCOCCAL PPSV23 12/14/2018 PNEUMOCOCCAL PPV VACCINE 12/05/2009 Social History Tobacco Use Types Packs/Day Years Used Date Smoking Tobacco: Never Smokeless Tobacco: Never Alcohol Use Standard Drinks/Week Comments Yes 0 (1 standard drink = 0.6 oz pur e alcohol) occ Sex and Gender Information Value Date Recorded Sex Assigned at Not on file Gender Identity Not on file Sexual Orientation Not on file Last Filed Vital Signs Vital Sign Reading Time Taken Comments Blood Pressure 178/80 03/14/2024 10:22 AM SALES EFFECTIVENESS MANAGER Pulse 65 03/14/2024 10:22 AM SALES EFFECTIVENESS MANAGER Temperature - - Respiratory Rate - - Oxygen Saturation - - Inhaled Oxygen Concentration - - Weight 76.2 kg (168 lb) 03/14/2024 10:22 AM SALES EFFECTIVENESS MANAGER Height 162.6 cm (5' 4 ) 03/14/2024 10:22 AM SALES EFFECTIVENESS MANAGER Body Mass Index 28.84 03/14/2024 10:22 AM SALES EFFECTIVENESS MANAGER Plan of Treatment Upcoming Encounters Date Type Department Care Team (Late st Contact Info) Description 05/02/2024 10:00 AM CDT Appointment [facility] [address] [place] [address] Jimbo Canas MD [address] [place] [address] 05/02/2024 10:30 AM CDT Office Visit [facility] - ENT [address] [facility], [place] [phone] Jimbo Canas MD [address] [facility] [address] [place] [address] Procedures Procedure Name Priority Date/Time Associated Diagnosis Comments [place] NASAL ENDOSCOPY,DX Routine 03/14/2024 10:57 AM SALES EFFECTIVENESS MANAGER Nasal congestion Nasal septal spur Chronic rhinitis Post-nasal drip from Last 3 Months Results * [place] NASAL ENDOSCOPY,DX (03/14/2024 10:57 AM SALES EFFECTIVENESS MANAGER) Narrative Jimbo Canas MD - 03/14/2024 10:57 AM SALES EFFECTIVENESS MANAGER Jimbo Canas MD 03/14/2024 11:05 AM Due to the findings on physical examination, in correlation with the patient's symptomatology, the decision was made to perform a procedure today in clinic. Verbal consent obtained prior to starting procedure. Procedure note: Procedure: Rigid Nasal Endoscopy Pre Op Dx: Nasal secretions Post Op: same Anesthesia: Bilateral Nasal Cavities sprayed with Lidocaine and Neosynephrine Detail: Rigid nasal endoscopy performed bilaterally. Note: Septum deviated superiorly. No masses or lesions seen. Right interior nasal cavity showed turbinate hypertrophy, mucus stranding present. Right middle and superior meatus show pink mucosa with mucus stranding present. Sphenoethmoidal recess inspected showing mucus stranding, intact mucosa. Left interior nasal cavity showed turbinate hypertrophy, mucus stranding present. Left middle and superior meatus show pink mucosa with mucus stranding present. Sphenoethmoidal recess inspected showing mucus stranding, intact mucosa. Jimbo Canas MD PROCEDURE/MINOR KENT RGICAL ORDERABLES from Last 3 Months Care Teams Micro Photographer Relationship Specialty Start Date End Date Micheal Rodriguez MD [address] [facility] [address] [place] [address] PCP - General Internal Medicine 03/14/24
--- OUTSIDE RECORDS SUMMARY | 2024-04-12 15:29 | XMS_ITS | Clinical Summary ---
Author Organization [facility] Address [facility] [place] [address] Care Team Providers Care Automotive Parts Counterperson Name Role Phone Unavailable Primary Care Provider Unavailabl e Allergies Active Allergy Reactions Criticality Noted Date [...] 07/01/2023 Assessment & Plan (03/23/2024 1:34 PM STENCIL CUTTER): Slight srf sup to disc OD now with diffuse drusen and some atrophy OU. Continue AREDS. Pt wants to seek care closer to home. Schedule for consult at [facility] in [place]. F/u here prn. Assessment & Plan (07/01/2023 2:46 PM CDT): Stable with no signs of exudative disease on exam today. F/u in 6 months for repeat DFE and mac OCT. ANG (iron deficiency anemia) 04/10/2023 Acute upper GI bleed 03/21/2023 Assessment & Plan (03/31/2023 3:09 PM STENCIL CUTTER): CT A/P GI bleed protocol on admission with 2 foci of arterial enhancement and blooming on delayed images in the 2nd and 3rd portions of the duodenum compatible with active extravasation. Hgb 4.5 (baseline 11/2022) from 6 on 03/16. Iron deficient on presentation to OSH, iron deficiency resolved s/p IV repletion. B12 wnl. No hypotension. Pt is Religious and does not accept whole blood products. [...] 03/21/2023 Assessment & Plan (03/21/2023 2:57 AM STENCIL CUTTER): - Home nightly CPAP Breast cancer 03/21/2023 Assessment & Plan (03/21/2023 2:59 AM STENCIL CUTTER): R breast CA (2018, ER+) s/p R mastectomy, chemotherapy, and radiation now on surveillance. Was on exemestane until recently, she reports Oncology stopped it due to concern about potential adverse effects. Pulmonary embolism 03/21/2023 Assessment & Plan (03/27/2023 6:23 PM STENCIL CUTTER): Hospitalized at OSH 01/2023 with RSV; shortly after discharge, readmitted with BLE edema and dyspnea and found to have DVT, PE. Started on Eliquis which was stopped 1 week ago due to melena, acute anemia. BLE Duplex 2/ and 2/7 with no e/o RLE DVT and chronic [...] 03/21/2023 Assessment & Plan (04/01/2023 3:38 PM STENCIL CUTTER): Follows w/ OSH pulmonology. Mild expiratory wheezes [...] 03/21/2023 Assessment & Plan (03/21/2023 3:14 AM STENCIL CUTTER): - Hold home diltiazem 120 mg daily, losartan 50 mg daily pending clinical course given acute GI bleed Anxiety 03/21/2023 Assessment & Plan (03/21/2023 3:15 AM STENCIL CUTTER): - Home sertraline Acute anemia 03/20/2023 Assessment & Plan (04/03/2023 10:45 AM STENCIL CUTTER): Due to GIB. No melena since 03/24. Hgb has been on the low 5s. She is Religious and does not accept whole blood products. S/p 500 IV iron x2 at OSH - Heme consulted: After risk/benefit discussion with patient and loved ones regarding increased risk of DVT/PE expansion with Epo, decision made to proceed with erythrocyte stimulating agent. Patient received Aranesp 400 mcg SQ on 03/20 and 300 mcg on 03/28. Plan is Aranesp 300 mcg qweekly - [facility] unable to provide Aranesp; giving additional dose 04/03 prior to d/c. - She has a follow up appoint with Dr Pérez on 04/16/2023 at 1:30pm. - Order weekly CBC outpatient and have the results faxed to Dr Pérez at [phone] Pseudophakia of both eyes 12/31/2022 Assessment & Plan (07/01/2023 2:46 PM CDT): Stable. Observe. Assessment & Plan (01/01/2023 9:08 AM STENCIL CUTTER): Stable. Observe. Diastolic heart failure 09/11/2021 Assessment & Plan (03/24/2023 6:44 PM STENCIL CUTTER): Chart history of diastolic dysfunction, appears hypervolemic on admission with small bilateral pleural effusions and 2+ pitting edema BLEs. No S/s CHF exacerbation - Hold home Bumex 4 mg PO daily pending clinical course given acute GI bleed - TTE- Normal LV size and systolic function Left posterior capsular opacification 04/22/2019 Assessment & Plan (01/01/2023 9:10 AM STENCIL CUTTER): Stable. Observe. Assessment & Plan (12/25/2021 4:22 PM STENCIL CUTTER): Mild. Stable. observe. Assessment & Plan (06/26/2021 4:08 PM CDT): Stable. Observe. Assessment & Plan (01/24/2021 12:27 PM STENCIL CUTTER): Minimal impact on bcva. Observe. Visual symptoms likely due to uncorrected refractive error. Update SRx. Assessment & Plan (04/22/2019 2:56 PM STENCIL CUTTER): Not yet impacting BCVA. Observe. Update SRx for reading. Retinal drusen of both eyes 04/22/2019 Assessment & Plan (01/01/2023 9:09 AM STENCIL CUTTER): Progressive non-exudative AMD with GA OU. Recommended pt start AREDS vitamin supplements. F/u in 6 months for repeat DFE with mac OCT. Assessment & Plan (07/03/2022 4:10 PM CDT): Stable on exam today. No e/o conversion to exudative disease. Continue to follow q6mos. Assessment & Plan (12/25/2021 4:22 PM STENCIL CUTTER): cuticular drusen OU. Low risk of conversion to exudative disease. Repeat dfe in 6 mos. Assessment & Plan (06/26/2021 4:08 PM CDT): No active exudative disease evident on exam and OCT today. Continue to follow q6mo. Assessment & Plan (01/24/2021 12:27 PM STENCIL CUTTER): Stable on exam. Will recheck OCT at f/u. Assessment & Plan (04/22/2019 2:55 PM STENCIL CUTTER): Small hard drusen OU. Mild. Annual exam. Exposure keratopathy 04/22/2019 Assessment & Plan (12/25/2021 4:22 PM STENCIL CUTTER): ATs prn. Assessment & Plan (04/22/2019 2:57 PM STENCIL CUTTER): Variable blur when reading likely due to ocular surface disruption/unstable tear film. Increase use of ATs before reading. Encounters Date Type Department Care Team Description 03/23/2024 12:45 PM STENCIL CUTTER Office Visit [facility] Ophthalmology [address] [facility] 2[address] [place] [address] Linus Carolina, OD Early dry stage nonexudative age-related macular degeneration of both eyes (Primary Dx); Pseudophakia of both eyes 01/18/2024 Telephone [facility] Hematology [address] [facility] [address] [place] [address] Ursula Santiago RN from Last 3 Months Immunizations Immunization Administration Dates Next Due Influenza, Trivalent, Adjuva nted, Intramuscular 12/14/2018 Influenza, Unspecified 12/11/2022,2013,12/11/2012,11/27 Pneumococcal Polysaccharide PPV23 12/14/2018 Pneumococcal, Unspecified 12/05/2009 Surgical History Surgery Date Site/Laterality Comments CATARACT EXTRACTION W/ INTRAOCULAR LENS IMPLANT Bilateral Medical History Medical History Date Comments Hx Other Medical Hysterectomy Hx Other Medical kidney / bladde r Hx Other Medical gallbladder Stress incontinence Stress incon tinence - (Added by TW Conv) Personal history of other di seases of the respiratory system Personal history of asthma - (Added by TW Conv) Personal history of other sp ecified conditions History of shortness of leola th - (Added by TW Conv) Cancer (CMS/HCC) (HCC) Breast ca ncer Family History Medical History Relation Name Comments Lung cancer Other Family history of Cancer, lung; Relation Name Status Comments Other Social History Tobacco Use Types Packs/Day Years [...] on file Legal Sex Female 3:01 AM STENCIL CUTTER Gender Identity Not on file Sexual Orientation Not on file Obstetrics History Last Filed Vital Signs Vital Sign Reading [...] Date/Ti me ESOPHAGOGASTRODUODENOSCOPY Open Access Acute anemia Health Maintenance Due Date Last Done Comments Depression Screening 1935 DTaP/Tdap/Td Vaccine (1 - Tdap) 09/07/1946 Hepatitis B Screening 1953 Zoster Vaccine (1 of 2) 09/07/1955 Well Visit 65+ 2001 Pneumococcal vaccine 65+ (2 of 2 - PCV) 12/15/2019 12/14/2018, 12/05/2009 Influenza Vaccine (#1) 2023 3, 12/14/2018, 12/03/2013, Additional history exists Fall Risk Assessment 04/03/2024 04/03/2023 Procedures Procedure Name Priority Date/Time Associated Diagnosis Comments OCT, RETINA - OU - BOTH EYES Routine 03/23/2024 1:32 PM STENCIL CUTTER Early dry stage nonexudative 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 Scan locations included subfoveal. Progression has been stable. Findings include pigment epithelial detachment, subretinal scarring. Left Eye Quality was good. Progression has been stable. Findings include pigment epithelial detachment, subretinal scarring. Notes Slight SRF super to disc. Linus Carolina OD OPHTH TOMOGRAPHY Final Resu lt from Last 3 Months Insurance MEDICARE [place] [id number] [facility] SUPPLEMENT MEDICARE COMMERCIAL GENERIC MEDICARE [place] [id number] [address] [employer] [facility] SUPPLEMENT Advance Directives For more information, please contact: [phone] Documents on File Type Date Recorded Patient Switchboard Troubleshooter Expl anation ADVANCE DIRECTIVE 04/07/2023 7:01 PM POWER OF HOSTING ENGINEER-MEDICAL * Full Code (Latest Code Status on File) Date Activated Date Inactivated Comments 03/20/2023 7:03 PM 04/03/2023 5:45 PM
--- OUTSIDE RECORDS SUMMARY | 2024-04-12 15:29 | XMS_ITS ---
Author Organization [facility] Address [facility] [place] [address] Care Team Providers Care Manager Strategic Development Name Role Phone Unavailable Primary Care Provider Unavailabl e Active Problems Problem Noted Date Diagnosed Date Lesion of eyelid 07/01/2023 Assessment & Plan (07/01/2023 2:45 PM CDT): Images from the original note were not included. Schedule for consult with oculoplastics for excision. Early dry stage nonexudative age-related macular degeneration of both eyes 07/01/2023 Assessment & Plan (03/23/2024 1:34 PM COVER MAKER): Slight srf sup to disc OD now with diffuse drusen and some atrophy OU. Continue AREDS. Pt wants to seek care closer to home. Schedule for consult at [facility] in [place]. F/u here prn. Assessment & Plan (07/01/2023 2:46 PM CDT): Stable with no signs of exudative disease on exam today. F/u in 6 months for repeat DFE and mac OCT. ANG (iron deficiency anemia) 04/10/2023 Acute upper GI bleed 03/21/2023 Assessment & Plan (03/31/2023 3:09 PM COVER MAKER): CT A/P GI bleed protocol on admission with 2 foci of arterial enhancement and blooming on delayed images in the 2nd and 3rd portions of the duodenum compatible with active extravasation. Hgb 4.5 (baseline 1111/2022) from 6 on 03/16. Iron deficient on presentation to OSH, iron deficiency resolved s/p IV repletion. B12 wnl. No hypotension. Pt is Tenriism and does not accept whole blood products. [...] 03/21/2023 Assessment & Plan (03/21/2023 2:57 AM COVER MAKER): - Home nightly CPAP Breast cancer 03/21/2023 Assessment & Plan (03/21/2023 2:59 AM COVER MAKER): R breast CA (2018, ER+) s/p R mastectomy, chemotherapy, and radiation now on surveillance. Was on exemestane until recently, she reports Oncology stopped it due to concern about potential adverse effects. Pulmonary embolism 03/21/2023 Assessment & Plan (03/27/2023 6:23 PM COVER MAKER): Hospitalized at OSH 01/2023 with RSV; shortly [...] 03/21/2023 Assessment & Plan (04/01/2023 3:38 PM COVER MAKER): Follows w/ OSH pulmonology. Mild expiratory wheezes [...] 03/21/2023 Assessment & Plan (03/21/2023 3:14 AM COVER MAKER): - Hold home diltiazem 120 mg daily, losartan 50 mg daily pending clinical course given acute GI bleed Anxiety 03/21/2023 Assessment & Plan (03/21/2023 3:15 AM COVER MAKER): - Home sertraline Acute anemia 03/20/2023 Assessment & Plan (04/03/2023 10:45 AM COVER MAKER): Due to GIB. No melena since 03/24. Hgb has been on the low 5s. She is Tenriism and does not accept whole blood products. S/p 500 IV iron x2 at OSH - Heme consulted: After risk/benefit discussion with patient and loved ones regarding increased risk of DVT/PE expansion with Epo, decision made to proceed with erythrocyte stimulating agent. Patient received Aranesp 400 mcg SQ on 03/20 and 300 mcg on 03/28. Plan is Aranesp 300 mcg qweekly - [facility] unable to provide Aranesp; giving additional dose 04/03 prior to d/c. - She has a follow up appoint with Dr Pérez on 04/16/2023 at 1:30pm. - Order weekly CBC outpatient and have the results faxed to Dr Pérez at [phone] Pseudophakia of both eyes 12/31/2022 Assessment & Plan (07/01/2023 2:46 PM CDT): Stable. Observe. Assessment & Plan (01/01/2023 9:08 AM COVER MAKER): Stable. Observe. Diastolic heart failure 09/11/2021 Assessment & Plan (03/24/2023 6:44 PM COVER MAKER): Chart history of diastolic dysfunction, appears hypervolemic on admission with small bilateral pleural effusions and 2+ pitting edema BLEs. No S/s CHF exacerbation - Hold home Bumex 4 mg PO daily pending clinical course given acute GI bleed - TTE- Normal LV size and systolic function Left posterior capsular opacification 04/22/2019 Assessment & Plan (01/01/2023 9:10 AM COVER MAKER): Stable. Observe. Assessment & Plan (12/25/2021 4:22 PM COVER MAKER): Mild. Stable. observe. Assessment & Plan (06/26/2021 4:08 PM CDT): Stable. Observe. Assessment & Plan (01/24/2021 12:27 PM COVER MAKER): Minimal impact on bcva. Observe. Visual symptoms likely due to uncorrected refractive error. Update SRx. Assessment & Plan (04/22/2019 2:56 PM COVER MAKER): Not yet impacting BCVA. Observe. Update SRx for reading. Retinal drusen of both eyes 04/22/2019 Assessment & Plan (01/01/2023 9:09 AM COVER MAKER): Progressive non-exudative AMD with GA OU. Recommended pt start AREDS vitamin supplements. F/u in 6 months for repeat DFE with mac OCT. Assessment & Plan (07/03/2022 4:10 PM CDT): Stable on exam today. No e/o conversion to exudative disease. Continue to follow q6mos. Assessment & Plan (12/25/2021 4:22 PM COVER MAKER): cuticular drusen OU. Low risk of conversion to exudative disease. Repeat dfe in 6 mos. Assessment & Plan (06/26/2021 4:08 PM CDT): No active exudative disease evident on exam and OCT today. Continue to follow q6mo. Assessment & Plan (01/24/2021 12:27 PM COVER MAKER): Stable on exam. Will recheck OCT at f/u. Assessment & Plan (04/22/2019 2:55 PM COVER MAKER): Small hard drusen OU. Mild. Annual exam. 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 Assessment & Plan (04/22/2019 2:57 PM COVER MAKER): Variable blur when reading likely due to ocular surface disruption/unstable tear film. Increase use of ATs before reading. Current Treatment and Therapy Plans No current plan information found. Other Current Plans darbepoetin (ARANESP) injection weekly* Plan Start Date:04/16/2023 Plan Provider:Angeles Pérez MD Linked Problems Acute anemia Treatment Medications No medications scheduled. iron dextran (INFED) infusion* Plan Start Date:04/16/2023 Plan Provider:Angeles Pérez MD Linked Problems Iron deficiency anemia, unsp ecified iron deficiency anemia type Treatment Medications No medications scheduled. Past Treatment and Therapy Plans No past plan information found. Lifetime Dose Tracking * Chemical Lifetime Dose Automatic Entry Manual Entr y DLP 1,431 mGycm 1,431 mGycm 0 mGycm
--- OUTSIDE RECORDS SUMMARY | 2024-04-12 15:29 | XMS_ITS | Clinical Summary ---
Author Organization [facility] Address [address] [place] [address] Care Team Providers Care Turkish Line Attendant Name Role Phone Killian Domínguez MD Primary Care Provider Allergies Active Allergy Reactions Criticality Noted Date Comments Fanyerick Hernandez High 02/26/2018 Medications losartan (COZAAR) 50 mg tablet Take 25 mg by mouth daily . 8 Active LORazepam (ATIVAN) 0.5 mg tablet Take 0.5 mg by mouth every 8 hours as needed . 8 Active ferrous sulfate 324 mg (65 mg iron) Tablet, Delayed Release (E.C.) Take 324 mg by mouth 3 times daily before meals . 8 Active potassium chloride (KLOR-CON) 10 mEq Extended Release tablet Take 20 mEq by mouth daily . Active bumetanide (BUMEX) 2 mg tablet Take 2 mg by mouth daily . Active lidocaine-priloc raman (EMLA) 2.5-2.5 % Cream Apply to port site 30-60 min before use. 30 Gram 3 8 Active ondansetron (ZOFRAN) 4 mg Tablet Take 1 Tablet (4 mg) by mouth every 8 hours as needed for Nausea/Emesis. 30 Tablet 3 8 Active diphenhydrAMINE1 2.5 mg/5 mL-viscous lidocaine-Maalox 1:1:1 (MAGIC MOUTHWASH) oral suspension compound Take 5 mL by mouth 4 times daily Lidocaine 2% 100ml, Nystatin 100 ml, Benadryl 12.5 mg/5 ml 100 ml. 300 mL 1 8 Active ascorbic acid, vitamin C, (VITAMIN C) 1,000 mg Tablet Take 1,000 mg by mouth daily. Active cholecalciferol, vitamin D3, 1,000 unit Take 1,000 Units by mouth daily. Active cyproheptadine (PERIACTIN) 4 mg tablet 9 Active promethazine (PHENERGAN) 25 mg tablet 9 Active cyanocobalamin 1,000 mcg Tablet Take 1,000 mcg by mouth daily. Active DAILY MULTI-VITAMIN ORAL Take by mouth. Activ e ipratropium-albu teroL (DUONEB) 0.5 mg-3 mg(2.5 mg base)/3 mL Solution for Nebulization INHALE [address] OF NEBULIZER TWICE DAILY NEEDED FOR SHORTNESS OF BREATH OR WHEEZING 0 Active fluticasone propionate (FLONASE) 50 mcg/spray Mullins, Suspension nasal inhaler SPRAY 1 SPRAY INTO EACH NOSTRIL TWICE DAILY 0 Active azelastine (ASTEPRO) 0.15 % (205.5 mcg) nasal spray SPRAY 2 SPRAYS IN EACH NOSTRIL DAILY 0 Active cetirizine (ZyrTEC) 10 mg tablet TAKE ONE HALF TABLET BY MOUTH DAILY NEEDED FOR ALLERGY SYMPTOMS 0 Active ibuprofen (MOTRIN) 800 mg tablet TAKE 1 TABLET BY MOUTH EVERY 8 HOURS NEEDED PAIN 1 Active sertraline (ZOLOFT) 25 mg tabletIndication s: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 Active montelukast (SINGULAIR) 10 mg tablet Take 10 mg by mouth daily at bedtime. 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, estrogen receptor positive 11/19/2017 Encounters Date Type Department Care Team Description 04/11/2024 Orders Only [facility] Oncology and Hematology - [place] [address] [place] [address] Chadwick Enciso MD 04/11/2024 Abstract [facility] Oncology and Hematology - [place] [address] [place] [address] Chadwick Enciso MD 03/09/2024 External Device Data [facility] ABSTRACTION Provider, Abstract 03/09/2024 External Device Data ST[facility] ABSTRACTION Provider, Abstract from Last 3 Months Family History Medical History Relation Name Comments Heart Disease Father Diabetes Sister 1 Relation Name Status Comments Father Mother Sister 1 Alive Sister 2 Social History Tobacco Use Types Packs/Day Years Used Date Smoking Tobacco: Former Cigarettes 1.5 8 1 - 11/20/1963 Smokeless Tobacco: Never Tobacco Cessation:Counseling Given: Not Answered Alcohol Use Standard Drinks/Week Comments Yes 0 (1 standard drink = 0.6 oz pur e alcohol) Comments No Sex and Gender Information Value Date Recorded Sex Assigned at Not on file Legal Sex Female 5:21 AM PUNCH CARD OPERATOR Gender Identity Not on file Sexual Orientation Not on file Last Filed Vital Signs Vital Sign Reading Time Taken Comments Blood Pressure 136/65 10/09/2023 11:09 AM CDT Pulse 64 10/09/2023 11:09 AM CDT Temperature 36.3 C (97.3 F) 10/09/2023 11:09 AM CDT Respiratory Rate 16 10/09/2023 11:09 AM CDT Oxygen Saturation 95% 10/09/2023 11:09 AM CDT Inhaled Oxygen Concentration - - Weight 73.9 kg (163 lb) 10/09/2023 11:09 AM CDT Height 162.6 cm (5' 4 ) 11/13/2021 11:01 AM CDT Body Mass Index 27.98 11/13/2021 11:01 AM CDT Plan of Treatment Upcoming Encounters Date Type Department Care Team (Late st Contact Info) Description 04/15/2024 10:15 AM PUNCH CARD OPERATOR Office Visit [facility] Oncology and Hematology - [place] [address] [facility] [address] [place] [address] Chadwick Enciso MD [address] [facility] [address] [place] [address] Health Maintenance Due Date Last Done Comments DTAP/TDAP/TD VACCINES (1 - Tdap) 09/07/1954 PNEUMOCOCCAL VACCINE 65+ YEA RS (1 of 2 - PCV) 09[birth year]07/1954 ZOSTER VACCINE (1 of 2) 09/07/1954 RSV VACCINE (60+ or ) (1 - 1-dose 75+ series) 09/07/2011 INFLUENZA VACCINE (#1) 2023 Preventative Visit- Commercial 02/17/2024 OSTEOPOROSIS SCREENING Completed 01/16/2020, 2019 Procedures Procedure Name Priority Date/Time Associated Diagnosis Comments COMPREHENSIVE METABOLIC PANEL Routine 04/08/2024 3:28 PM PUNCH CARD OPERATOR XR DEXA BONE DENSITY AXIAL 1 OR MORE SITES Routine 01/16/2020 Aromatase inhibitor use from Last 3 Months or Most Recently Relevant to Health Maintenance Results * COMPREHENSIVE METABOLIC PANEL (04/08/2024 3:28 PM PUNCH CARD OPERATOR) Blood Chadwick Enciso MD CHEMISTRY ORDERABLES Final Resu lt * XR DEXA BONE DENSITY AXIAL 1 OR MORE SITES (01/16/2020) Anatomical Region Laterality Modality Other Kymber[facility] ORDERA BLES Final Result from Last 3 Months or Most Recently Relevant to Health Maintenance Insurance MEDICARE PART A AND B MEDICARE PART A AND B GENERIC PAYOR Care Teams Turkish Line Attendant Relationship Specialty Start Date End Date Killian Domínguez MD [address] [place] [phone] PCP - General Internal Medicine 07/02/18
--- OUTSIDE RECORDS SUMMARY | 2024-04-12 15:29 | XMS_ITS | Continuity of Care Document ---
Author Name Auto Generated, Auto Generated Organization [facility] Support Name Relationship Address Phone Alex Bailey Emergency Contact 1 Unknown [phone] Urbano Bailey Son Unknown Unavailable Leo Tatianna Financial [employer]ible [employer] [address] [place] [address] LeoKeyshaTatianna Self [address] [facility] [place] [address] Alex Bailey Spouse Unknown [phone] Urbano Bailey Emergency Contact 2 Unknown Unava ilable Childs, Ashvin Friend Unknown Unavailable Summary Purpose Consult/Referral Allergies, Adverse Reactions, Alerts Type Description/Agent Code Date Allergy Active Date Allergy Inactivated Date of Last Reaction Adverse Reactions Severity Status Comments Source of Information FDB Medic ation Ingre dient codeine Active Patient History FDB Medic ation Ingre dient lisinopril Active Patien t History Medications No Known Medications Conditions/Problems Problem/Diagnosis Awareness of Diagnosis Code (ICD-10) Onset Date (Start Date) Resolution Date (End Date) Status Source Comments CHRONIC KIDNEY DISEASE, STAGE 3 UNSPECIFIED N18.30 04/08/19 Active Cheng sousa MD [facility] HYPERTENSIVE HEART AND CHRONIC KIDNEY DISEASE WITH HEART FAILURE AND STAGE 1 THROUGH STAGE 4 CHRONIC KIDNEY DISEASE, OR UNSPECIFIED CHRONIC KIDNEY DISEASE I13.0 04/08/19 Active Cheng sousa MD [facility] UNSPECIFIED ASTHMA, UNCOMPLICATED J45.909 04/03/19 24 04/10/2023 Resolved Cheng sousa MD [facility] STRESS INCONTINENCE (FEMALE) (MALE) N39.3 04/03/19 Active Cheng sousa MD [facility] PROCEDURE AND TREATMENT NOT CARRIED OUT BECAUSE OF PATIENT'S DECISION FOR REASONS OF BELIEF AND GROUP PRESSURE Z53.1 04/03/19 Active Cheng sousa MD [facility] ACUTE POSTHEMORRHAGIC ANEMIA D62 03/20/19 Active Cheng sousa MD [facility] GASTROINTESTINAL HEMORRHAGE, UNSPECIFIED K92.2 03/20/19 Active Cheng sousa MD [facility] HYPERTENSIVE HEART DISEASE WITH HEART FAILURE I11.0 03/06/19 24 04/10/2023 Resolved Cheng sousa MD [facility] RHEUMATIC MITRAL INSUFFICIENCY I05.1 03/06/19 Active Cheng sousa MD [facility] CHRONIC OBSTRUCTIVE PULMONARY DISEASE, UNSPECIFIED J44.9 03/06/19 Active Cheng sousa MD [facility] HYPO-OSMOLALITY AND HYPONATREMIA E87.1 03/06/19 Active Cheng sousa MD [facility] OBSTRUCTIVE SLEEP APNEA (ADULT) (PEDIATRIC) G47.33 03/06/19 Active Cheng sousa MD [facility] Z99.89 VENOUS INSUFFICIENCY (CHRONIC) (PERIPHERAL) I87.2 03/06/19 Active Cheng sousa MD [facility] IRON DEFICIENCY ANEMIA SECONDARY TO BLOOD LOSS (CHRONIC) D50.0 03/06/19 Active Cheng sousa MD [facility] OTHER ILL-DEFINED HEART DISEASES I51.89 03/06/19 24 03/11/2023 Resolved Cheng sousa MD [facility] ANXIETY DISORDER, UNSPECIFIED F41.9 03/06/19 Active Cheng sousa MD [facility] ESSENTIAL (PRIMARY) HYPERTENSION I10 03/06/19 24 03/11/2023 Resolved Cheng sousa MD [facility] OTHER PULMONARY EMBOLISM WITHOUT ACUTE COR PULMONALE I26.99 03/03/19 Active Cheng sousa MD [facility] PLEURAL EFFUSION, NOT ELSEWHERE CLASSIFIED J90 03/03/19 Active Cheng sousa MD [facility] ACUTE EMBOLISM AND THROMBOSIS OF UNSPECIFIED DEEP VEINS OF LOWER EXTREMITY, BILATERAL I82.403 03/03/19 Active Cheng sousa MD [facility] CHRONIC EMBOLISM AND THROMBOSIS OF UNSPECIFIED DEEP VEINS OF LEFT LOWER EXTREMITY I82.502 03/03/19 24 04/10/2023 Resolved Cheng sousa MD [facility] PERSONAL HISTORY OF PULMONARY EMBOLISM Z86.711 03/03/19 24 04/10/2023 Resolved Cheng sousa MD [facility] FPC (CURRENT) USE OF ANTICOAGULANTS Z79.01 01/15/20 24 Active Cheng sousa MD [facility] ACUTE AND CHRONIC RESPIRATORY FAILURE WITH HYPOXIA J96.21 03/02/19 24 Active MD Anton Villegas CHRONIC OBSTRUCTIVE PULMONARY DISEASE WITH (ACUTE) EXACERBATION J44.1 03/02/19 24 Active MD Anton Villegas UNSPECIFIED ASTHMA WITH (ACUTE) EXACERBATION J45.901 03/02/19 23 Active MD Anton Villegas CHRONIC DIASTOLIC (CONGESTIVE) HEART FAILURE I50.32 09/12/19 22 Active MD Anton Villegas MEDICAL CODING SPECIALIST (CURRENT) USE OF AROMATASE INHIBITORS Z79.811 02/16/19 18 Active Cheng sousa MD [facility] PERSONAL HISTORY OF MALIGNANT NEOPLASM OF BREAST Z85.3 02/16/19 18 Active MD Anton Villegas ACQUIRED ABSENCE OF RIGHT BREAST AND NIPPLE Z90.11 02/16/19 18 Active MD Anton Villegas ESTROGEN RECEPTOR POSITIVE STATUS [ER+] Z17.0 02/16/19 18 Active Cheng sousa MD Anton Procedures No Known Procedures
--- OUTSIDE RECORDS SUMMARY | 2024-04-12 15:30 | XMS_ITS | Data Portability ---
Author Organization [place] [facility], [facility] Address [address] [facility] [address] [place] [address] Assessment No assessment recorded. Plan of Treatment Reminders Order Date Submit Date Provider Last Modified By Organization Details Last Modified Time Details Appointments Follow Up 15 2024 11:00A M Micheal Rodriguez MD Not available Not available Not available Lab None recorded. Referral None recorded. Procedures None recorded. Surgeries None recorded. Imaging None recorded. Medication Orders bumetanid e 1 mg tablet 2023 [facility] [id number] [facility], [facility] [place], [address], 01/26/2024 16:39:45 sertralin e 100 mg tablet 2023 [facility] [id number] [facility], [address] [place], [address], 01/26/2024 16:45:14 Patient TargetsNo targets recorded. Patient Instructions Encounter Date Encounter Id Patient Instructions Last Modified By Organization Details Last Modified Time 01/26/2024 [id number] learning about asthma [email or web address] Not available 01/26/2024 18:33:46 sleep apnea: car e instructions [email or web address] Not available 01/26/2024 18:33:46 learning about mood disorders [email or web address] Not available 01/26/2024 16:45:10 iron deficiency anemia: care instructions Not available 01/26/2024 18:33:46 I spent a total of _45 minutes (excluding separately reportable procedure time ) in care of this patient. [email or web address] Not available 01/26/2024 16:40:28 Reason for Referral None Reported. Problems Name Problem SNOMED Code Status Onset Date Resolution Date Notes Provider Name and Address Organization Details Recorded Time Chronic diastolic heart failure 920418197 Active 2023 Micheal Rodriguez MD [address] [facility] [address] [place], [address], [facility] 4 16:38:50 Depressive disorder 10489988 Active 2023 Micheal Rodriguez MD [address] [facility] [address], [place], [address], [facility] 16:43:10 Asthma 984904428 Active 2023 Micheal Rodriguez MD [address] [facility] [address], [place], [address], [facility] 18:20:40 Obstructive sleep apnea syndrome 61116639 Active 2023 Micheal Rodriguez MD [address] [facility] [address], [place], [address], [facility] 18:21:15 Chronic rhinosinusi tis 888493076 Active 2023 Micheal Rodriguez MD [address] [facility] [address], [place], [address], [facility] 18:21:56 Iron deficiency anemia 63809194 Active 2023 Micheal Rodriguez MD [address] [facility] [address], [place], [address], [facility] 18:22:47 Adenomatous polyp of colon 102533836 Active 2023 Micheal Rodriguez MD [address] [facility] [address], [place], [address], [facility] 18:27:15 Bilateral osteoarthri tis of knees 5192837831900 07 Active 2023 Micheal Rodriguez MD [address] [facility] [address], [place], [address], [facility] 18:27:21 Problem Notes None recorded. Medical Equipment None Reported. Medications Name Sig Start Date Stop Date Status Note LastModified by Organization Details LastModified Time prednisone 10 mg tablet 01/25 completed Not Available Not Available Not Available doxycycline hyclate 100 mg capsule TAKE 1 CAPSULE BY MOUTH TWICE A DAY 01/25 completed Not Available Not Available Not Available bumetanide 2 mg tablet TAKE ONE-HALF TABLET BY MOUTH DAILY 01/25 completed Not Available Not Available Not Available azithromyci n 250 mg tablet 01/25 completed Not Available Not Available Not Available sertraline 100 mg tablet TAKE 2 TABLETS BY MOUTH EVERY DAY 2023 active Not Available Not Available Not Avai lable prednisone 5 mg tablet TAKE 2 TABLETS DAYS 1-4, TAKE 1 TABLET DAYS 5-7, TAKE IN MORNING 01/25 completed Not Available Not Available Not Available cyanocobala min (vit B-12) 1,000 mcg tablet TAKE 2 TABLETS BY MOUTH ONCE DAILY 01/25 completed Not Available Not Available Not Available alprazolam 0.25 mg tablet active Not Available Not Available Not Available exemestane 25 mg tablet TAKE 1 TABLET (25 MG) BY MOUTH DAILY AFTER BREAKFAST active Not Available Not Available No t Available pantoprazol e 40 mg tablet,bladimir yed release TAKE 1 TABLET BY MOUTH TWICE A DAY active Not Available Not Available No t Available docusate sodium 100 mg capsule TAKE 1 CAPSULE BY MOUTH 3 TIMES DAILY NEEDED FOR CONSTIPAT ION active Not Available Not Available No t Available bumetanide 1 mg tablet TAKE 1 TABLET BY MOUTH TWICE A DAY 2023 active Not Available Not Available Not Avai lable folic acid 1 mg tablet TAKE 5 TABLETS BY MOUTH ONCE DAILY 01/25 completed Not Available Not Available Not Available montelukast 10 mg tablet TAKE 1 TABLET BY MOUTH EVERY DAY AT BEDTIME active Not Available Not Available No t Available hydroxyzine HCl 25 mg tablet TAKE 1 TABLET BY MOUTH THREE TIMES A DAY NEEDED FOR ANXIETY 01/25 completed Not Available Not Available Not Available metoprolol succinate ER 25 mg tablet,exte nded release 24 hr TAKE 2 TABLETS BY MOUTH DAILY active Not Available Not Available No t Available azelastine 137 mcg (0.1 %) nasal spray SPRAY 1 SPRAY IN EACH NOSTRIL EVERY 12 HOURS active Not Available Not Available No t Available sertraline 50 mg tablet TAKE 3 TABLETS BY MOUTH DAILY active Not Available Not Available No t Available ipratropium bromide 21 mcg (0.03 %) nasal spray ADMINISTE R 2 SPRAYS INTO EACH NOSTRIL THREE TIMES A DAY - AIM BACK/UP/O UT active Not Available Not Available No t Available amoxicillin 500 mg-potassiu m clavulanate 125 mg tablet TAKE 1 TABLET BY MOUTH EVERY 12 HOURS FOR 1 WEEK 01/25 completed Not Available Not Available Not Available alprazolam ER 0.5 mg tablet,exte nded release 24 hr TAKE 1 TABLET BY MOUTH EVERY DAY NEEDED FOR ANXIETY active Not Available Not Available No t Available Symbicort 160 mcg-4.5 mcg/actuati on HFA aerosol inhaler INHALE 2 PUFFS BY MOUTH EVERY 12 HOURS. active Not Available Not Available No t Available Mucus DM 30 mg-600 mg tablet,exte nded release TAKE 1 TABLET BY MOUTH ONCE DAILY FOR COUGH/CON GESTION 01/25 completed Not Available Not Available Not Available Vitals Date Recorded Body temperature Body height Body mass index (BMI) Body weight Heart rate Respiratory rate Oxygen saturation Oxygen saturation in Arterial blood by Pulse oximetry Systolic blood pressure Diastolic blood pressure Provider Name and Address Organization Details Last Updated DateTime 4 98.4 [degF] 162.56 cm 29 kg/m2 65849.1 1 g 65 /min 22 /min 95 % 95 % 140 mm[Hg] 72 mm[Hg] [facility] 4 15:43:35 Social History None recorded. Functional Status None recorded. Mental Status None recorded. Family History Nothing Reported Notes:father-heart disease, stroke mother-lung cancer sister-lung cancer, brain cancer Medical History No medical history recorded. Gynecological HistoryNo gynecological history recorded. Obstetrics History GPAL:G 0 P 0 0 0 0 Past Encounters Encounter ID Performer Location Encounter Start Date Encounter Closed Date Diagnosis/Indication Diagnosis SNOMED-CT Code Diagnosis ICD10 Code Diagnosis Note [id number] Micheal Rodriguez MD [facility] [address] [facility] [address] [place] [address] 01/26/2024 15:21:07 01/26/2024 16:49:37 Chronic diastolic heart failure 361118606 I50.32 Echo 03/11:ef 60-65Perce ntMild aortic valve sclerosis. Trace TR. Grade 1 diastolic dysfunctio n.Noncompl iant with BumexDiscu ssed fluid restrictio nContinue Bumex 1 mg twice daily Depressive disorder 3548 9007 F32.A on sertraline .will increase to 200 mg dailyon alprazolam prn which was given in the hospital Asthma 940237197 J45.[address] Lafleur symbiluz and albuterol prndiscuss ed switching to treleg.she will discuss with dr. Oseguera Obstructiv e sleep apnea syndrome 07500174 G47.[address] Oseguera Chronic rhinosinusitis 520217812 J31.0 Seen ENTOn Flonase and Astelin twice a dayIpratro piumGoing to see [facility] Iron defic iency anemia 72936374 D50.9 Severe anemia February 2023 with GI bleed due to anticoagul ationRecei [place] iron infusion in the pastFollow s with hematologi st History of malignant neoplasm of breast 580822852 Z85.3 History of breast cancer in 2018Status post right mastectomy On examestane History of thromboembolism 933688272 Z86.718 hx of Venous thrombossB ilateral lower extremity DVT February4Repeat venous duplex 10/09-PE 01/2023was on anticoagul ation but compllicat ed with gi bleed and hence now off History of gastrointestinal bleed 955984812 Z87.19 History of GI bleed February 2023 with severe anemia down to 4Off and do coagulatio n Adenomatou s polyp of colon 524911297 D12.6 Colonoscop y 04/10: Tubular adenoma ascending colon and cecalSees Dr. Cochran Bilateral osteoarthritis of knees 3240519461 40775 M17.0 Preventive procedure 169 265910 Z29.9 Mammogram 06/09Negati veColonosc opy 04/10: Tubular adenoma ascending colon and cecum sees Dr. Alvarez one 2019: Osteopenia Health Concerns Section Related Observation LastModified by Organization Detai ls LastModified Time None Recorded Concern Status LastModified by Organization Details LastModified Time None Recorded Advance Directives Directive None Recorded Payers Encounter Date Sequence Insurance Name Policy Number Policy Avalos Covered Member ID Avalos Member ID Guarantor Name 01/26/2024 1 [place] Tatianna Bailey [id number] Tatianna Bailey 01/26/2024 2 [employer] [place] [id number] Tatianna Manfred [id number] Tatianna Bailey Notes Date Note Type Note Provider Name and Address Organization Details Recorded Time 01/26/2024 text/html Pt here to establish care. Her primary physician recently relocated. Pt struggling with depression since loosing spouse on September 17 2023. Pt is currently living alone. Pt sees cdl service technician Lien Preston for asthma. C/O shortness of breath an wheezing daily. Swelling in ankles and feet present for numerous years. Completed chemo and radiation in 2019 for after mastectomy. States she received iron infusions regularly after being diagnosis with stomach bleed in Feb 2023. Micheal Rodriguez MD [address] [facility] [address], [place], [address], [facility] 01/26/2024 18:33:56 OBGyn Episode No OBEpisode recorded.
--- OUTSIDE RECORDS SUMMARY | 2024-04-12 15:30 | XMS_ITS | Encounter Summary ---
Author Organization [facility] Address [address] [place] [address] Care Team Providers Care Steam Crane Operator Name Role Phone Mark العلي DO Primary Care Provider [phone] Micheal Rodriguez MD Primary Care Provider [phone] Reason for Referral * Consultation (Routine) - Closed Specialty Diagnoses / Procedures Referred By Contac t Referred To Contact ENT-Otolaryngology Diagnoses Chronic rhinitis Lien Oseguera MD [address] [facility] [address] [place] [address] Jimbo Canas MD [address] [place] [address] Referral ID Status Reason Start Date Expiration Date V isits Requested Visits Authorized [id number] Closed Specialty Services Required 01/06/2024 01/05/2025 1 1 CE MOVER Encounter Details Date Type Department Care Team (Late st Contact Info) Description 01/06/2024 Transcribe Orders [facility] - Centralized Scheduling [address] [place] [address] Lien Oseguera MD [address] [facility] [address] [place] [address] Chronic rhinitis Social History Tobacco Use Types Packs/Day Years Used Date Smoking Tobacco: Never Assessed Sex and Gender Information Value Date Recorded Sex Assigned at Not on file Gender Identity Not on file Sexual Orientation Not on file documented as of this encounter Plan of Treatment Upcoming Encounters Date Type Department Care Team (Late st Contact Info) Description 05/02/2024 10:00 AM CDT Appointment [facility] [address] [place] [address] Jimbo Canas MD [address] [facility] [address] [place] [address] 05/02/2024 10:30 AM CDT Office Visit [facility] - ENT [address] [place] [address] Jmibo Canas MD [address] [facility] [address] [place] [address] Scheduled Referrals Name Type Priority Associated Diagnoses Order Schedule AMB REFERRAL TO ENT Outpatient Referral Routine Chronic rhinitis 1 Occurrences starting 01/06/2024 until 01/05/2025 documented as of this encounter Visit Diagnoses Diagnosis Chronic rhinitis- Primary documented in this encounter Care Teams Steam Crane Operator Relationship Specialty Start Date End Date Mark العلي DO [address] [place] [phone] PCP - General 04/25/22 03/13/24 Micheal Rodriguez MD [address] [facility] [address] [place] [address] PCP - General Internal Medicine 03/14/24 documented as of this encounter
--- OUTSIDE RECORDS SUMMARY | 2024-04-12 15:30 | XMS_ITS | Encounter Summary ---
Author Organization [facility] Address [address] [place] [address] Care Team Providers Care Delivery Table Operator Name Role Phone Killian Domínguez MD Primary Care Provider [phone] Encounter Details Date Type Department Care Team (Late Contact Info) Description 04/11/2024 Abstract [facility] Oncology and Hematology [address] [place] [address] Chadwick Enciso MD [address] [place] [phone] Social History Tobacco Use Types Packs/Day Years Used Date Smoking Tobacco: Former Cigarettes 1.5 8 1 - 11/20/1963 Smokeless Tobacco: Never Alcohol Use Standard Drinks/Week Comments Yes 0 (1 standard drink = 0.6 oz pur e alcohol) Comments No Sex and Gender Information Value Date Recorded Sex Assigned at Not on file Legal Sex Female 5:21 AM TRUST ADMINISTRATOR Gender Identity Not on file Sexual Orientation Not on file documented as of this encounter Plan of Treatment Upcoming Encounters Date Type Department Care Team (Late st Contact Info) Description 04/15/2024 10:15 AM TRUST ADMINISTRATOR Office Visit [facility] Oncology and Hematology - [address] [place] [address] Chadwick Enciso MD [address] [place] [phone] documented as of this encounter Visit Diagnoses Not on filedocumented in this encounter Care Teams Delivery Table Operator Relationship Specialty Start Date End Date Killian Domínguez MD [address] [place] [address] PCP - General Internal Medicine 07/02/18 documented as of this encounter
--- OUTSIDE RECORDS SUMMARY | 2024-04-12 15:30 | XMS_ITS | Clinical Summary ---
Author Organization [facility] Address [address] [place] [address] Care Team Providers Care V Belt Curer Name Role Phone None, Provider MD Primary Care Provider Unavaila ble Social History Tobacco Use Types Packs/Day Years Used Date Smoking Tobacco: Never Assessed Comments Unknown Sex and Gender Information Value Date Recorded Sex Assigned at Not on file Legal Sex Female 6:51 PM CDT Gender Identity Not on file Sexual Orientation Not on file Plan of Treatment Health Maintenance Due Date Last Done Comments DTaP, Tdap and Td Vaccines (1 - Tdap) 09[birth year]07/1954 Zoster Vaccines (1 of 2) 1986 Annual Medicare Wellness Visit 2001 RSV Immunization or 60+ Years (1 - 1-dose 75+ series) 09/07/2011 Pneumococcal Vaccine: 65+ Years (2 of 2 - PCV) 12/15/2019 12/14/2018 COVID-19 Vaccine (1 - season) 2023 Influenza Adult (#1) 2023 12/11/2022, 12/14/2018, 12/03/2013, Additional history exists Meningococcal B Vaccine Aged Out No l onger eligible based on patient's age to complete this topic Meningococcal Vaccine Aged Out No arcadio kailey eligible based on patient's age to complete this topic RSV Immunizations Under 20 Months Aged Out No longer eligible based on patient's age to complete this topic Insurance MEDICARE Care Teams V Belt Curer Relationship Specialty Start Date End Date None, Provider, PCP - General 11/23/18
--- OUTSIDE RECORDS SUMMARY | 2024-04-12 15:30 | XMS_ITS | Patient Health Summary ---
Author Organization [facility] Address [address] [place] [address] Care Team Providers Care Webbing Supervisor Name Role Phone Micheal Rodriguez MD Primary Care Provider [phone] Note from [facility] [place],non-owned Affiliates and Associated Physician Practices is amultiple site organization consisting of ambulatory clinics and hospital sitesin [place], [place]. This disclosure is being madepursuant to the Care Everywhere program and may not contain all information available regarding this patient. Last updated 17.[facility] Allergies * Codeine(Urticaria) -High Criticality * Lisinopril(Urticaria) -Medium Criticality Medications * Be aware that medications may not be up to date on this document. Alwaysverify current medications with the patient. * sertraline (Zoloft) 50 MG tablet Take 3 (three) tablets by mouth once daily * metoprolol succinate XL 24hr (Toprol XL) 25 MG tablet Take 2 (two) tablets by mouth once daily * bumetanide (Bumex) 1 MG tablet(Started 01/27/2024) Take 1 (one) tablet by mouth 2 times daily * budesonide-formoterol (Symbicort) 160-4.5 MCG/ACT inhaler(Started 02/18/2024) Inhale 2 (two) puffs by mouth 2 times daily * ferrous gluconate 324 (38 Fe) MG tablet Take 1 (one) tablet by mouth once daily * albuterol HFA (Proventil; Ventolin; Proair) 108 (90 Base) MCG/ACT inhaler Inhale 2 (two) puffs by mouth every 6 hours as needed * azelastine (Astelin) 0.1 % nasal spray(Started 03/14/2024) Monroe 1 (one) spray into each nostril 2 times daily 4 refills by 03/14/2025 Ended Medications* azelastine (Astelin) 0.1 % nasal spray(Started 02/16/2023) (Discontinued) Monroe 1 (one) spray into the nose 2 times daily Active Problems No known active problems Immunizations * INFLUENZA VACCINE(Given 12/11/2022, 12/03/2013, 12/11/2012, 11/28/2011) * INFLUENZA VACCINE, ADJUVANTED, TRIV. (FLUAD TRIVALENT; 65Y+) (AIIV3)(Given 12/14/2018) * PNEUMOCOCCAL PPSV23(Given 12/14/2018) * PNEUMOCOCCAL PPV VACCINE(Given 12/05/2009) Social History Tobacco Use Types Packs/Day Years [...] Comments Blood Pressure 178/80 03/14/2024 10:22 AM METAL FABRICATOR APPRENTICE Pulse 65 03/14/2024 10:22 AM METAL FABRICATOR APPRENTICE Temperature - - Respiratory Rate - - Oxygen Saturation - - Inhaled Oxygen Concentration - - Weight 76.2 kg (168 lb) 03/14/2024 10:22 AM METAL FABRICATOR APPRENTICE Height 162.6 cm (5' 4 ) 03/14/2024 10:22 AM METAL FABRICATOR APPRENTICE Body Mass Index 28.84 03/14/2024 10:22 AM METAL FABRICATOR APPRENTICE Procedures * AL NASAL ENDOSCOPY,DX(Performed 03/14/2024) Performed for Nasal congestion, Nasal septal spur, Chronic rhinitis, Post-nasal drip Results * AL NASAL ENDOSCOPY,DX (03/14/2024 10:57 AM METAL FABRICATOR APPRENTICE) Narrative Jimbo Canas MD - 03/14/2024 10:57 AM METAL FABRICATOR APPRENTICE Jimbo Canas MD 03/14/2024 11:05 AM Due [...] Jimbo Canas MD PROCEDURE/MINOR KENT RGICAL ORDERABLES Care Teams Webbing Supervisor Relationship Specialty Start Date End Date Micheal Rodriguez MD [address] [facility] [address] [place] [phone] PCP - General Internal Medicine 03/14/24
--- OUTSIDE RECORDS SUMMARY | 2024-04-12 15:30 | XMS_ITS | Clinical Summary ---
Author Organization [facility] [employer] Address [address] [facility] [place] [address] Care Team Providers Care Loom Fixer Apprentice Name Role Phone Micheal Rodriguez MD Primary Care Provider [phone] Source Comments [facility] [employer],non-owned Affiliates and Associated Physician Practices is amultiple site organization consisting of ambulatory clinics and hospital sitesin [place], [place], [place] and [place]. This disclosure is being madepursuant to the Care Everywhere program and may not contain all information available regarding this patient. Last updated 17.[facility] [employer] Allergies Active Allergy Reactions Criticality Noted Date [...] Active azelastine (Astelin) 0.1 % nasal spray Morrison 1 (one) spray into each nostril 2 times daily 90 mL 4 03/14/2024 Active azelastine (Astelin) 0.1 % nasal spray Morrison 1 (one) spray into the nose 2 times daily 02/16/2023 03/14/2024 Discontinued( List Clean-Up) Active Problems No known active problems Encounters Date Type Department Care Team Description 03/15/2024 Travel 03/14/2024 10:30 AM CEMENT MASON MAINTENANCE Office Visit [facility] - ENT [address] [place] [phone] Jimbo Canas MD Nasal congestion (Primary Dx); Rhinitis, unspecified type; Nasal septal spur; Chronic rhinitis; Post-nasal drip 03/14/2024 Travel 02/03/2024 Travel from Last 3 Months Immunizations Name Administration Dates Next Due INFLUENZA [...] Comments Blood Pressure 178/80 03/14/2024 10:22 AM CEMENT MASON MAINTENANCE Pulse 65 03/14/2024 10:22 AM CEMENT MASON MAINTENANCE Temperature - - Respiratory Rate - - Oxygen Saturation - - Inhaled Oxygen Concentration - - Weight 76.2 kg (168 lb) 03/14/2024 10:22 AM CEMENT MASON MAINTENANCE Height 162.6 cm (5' 4 ) 03/14/2024 10:22 AM CEMENT MASON MAINTENANCE Body Mass Index 28.84 03/14/2024 10:22 AM CEMENT MASON MAINTENANCE Plan of Treatment Upcoming Encounters Date Type Department Care Team (Late st Contact Info) Description 05/02/2024 10:00 AM CDT Appointment [facility] [address] [place] [address] Jimbo Canas MD [address] [facility] 2[address] [place] [address] 05/02/2024 10:30 AM CDT Office Visit [facility] - ENT [address] [facility], [place] [phone] Jimbo Canas MD [address] [facility] [address] DEPT [place] [address] Health Maintenance Due Date Last Done Comments MEDICARE AWV 12 MONTHS 1936 DTAP/TDAP/TD VACCINES (1 - Tdap) 09/07/1954 ZOSTER VACCINE (1 of 2) 1986 Respiratory Syncytial Virus (RSV) Vaccine Pt: or over 60 yrs (1 - 1-dose 75+ series) 09/07/2011 PNEUMOCOCCAL VACCINE 50+ (2 of 2 - PCV) 12/15/2019 12/14/2018, 12/05/2009 COVID-19 VACCINE (1 - 2023- season) 2023 INFLUENZA VACCINE (#1) 2023 3, 12/14/2018, 12/03/2013, Additional history exists DEPRESSION SCREENING 02/17/2024 BONE DENSITY TESTING Completed 01/16/2020 HEPATITIS B VACCINE Aged Out No longe r eligible based on patient's age to complete this topic HIB VACCINE Aged Out No longer eligi ble based on patient's age to complete this topic HPV VACCINE Aged Out No longer eligi ble based on patient's age to complete this topic MENINGOCOCCAL (Group B) VACCINE Aged Out No longer eligible based on patient's age to complete this topic MENINGOCOCCAL VACCINE Aged Out No arcadio kailey eligible based on patient's age to complete this topic Procedures Procedure Name Priority Date/Time Associated Diagnosis Comments NE NASAL ENDOSCOPY,DX Routine 03/14/2024 10:57 AM CEMENT MASON MAINTENANCE Nasal congestion Nasal septal spur Chronic rhinitis Post-nasal drip from Last 3 Months Results * NE NASAL ENDOSCOPY,DX (03/14/2024 10:57 AM CEMENT MASON MAINTENANCE) Jimbo Sierra MD - 03/14/2024 10:57 AM CEMENT MASON MAINTENANCE Jimbo Canas MD 03/14/2024 11:05 AM Due [...] ORDERABLES from Last 3 Months Care Teams Loom Fixer Apprentice Relationship Specialty Start Date End Date Micheal Rodriguez MD [address] [facility] [address] [place] [address] PCP - General Internal Medicine 03/14/24
--- OUTSIDE RECORDS SUMMARY | 2024-04-12 15:30 | XMS_ITS | Encounter Summary ---
Author Organization [facility] Address [address] [place] [address] Care Team Providers Care Commercial Airplane Pilot Name Role Phone Killian Domínguez MD Primary Care Provider [phone] Encounter Details Date Type Department Care Team (Late Contact Info) Description 04/11/2024 Orders Only [facility] Oncology and Hematology - [address] [place] [address] Chadwick Enciso MD [address] [place] [phone] Social History Tobacco Use Types Packs/Day Years Used Date Smoking Tobacco: Former Cigarettes 1.5 8 1 - 11/20/1962 Smokeless Tobacco: Never Alcohol Use Standard Drinks/Week Comments Yes 0 (1 standard drink = 0.6 oz pur e alcohol) Comments No Sex and Gender Information Value Date Recorded Sex Assigned at Not on file Legal Sex Female 5:21 AM COMPENSATION VICE PRESIDENT Gender Identity Not on file Sexual Orientation Not on file documented as of this encounter Plan of Treatment Upcoming Encounters Date Type Department Care Team (Late st Contact Info) Description 04/15/2024 10:15 AM COMPENSATION VICE PRESIDENT Office Visit [facility] Oncology and Hematology - Bill [address] [place] [address] Chadwick Enciso MD [address] [place] [phone] documented as of this encounter Procedures Procedure Name Priority Date/Time Associated Diagnosis Comments COMPREHENSIVE METABOLIC PANEL Routine 04/08/2024 3:28 PM COMPENSATION VICE PRESIDENT documented in this encounter Results * COMPREHENSIVE METABOLIC PANEL (04/08/2024 3:28 PM COMPENSATION VICE PRESIDENT) Blood Chadwick Enciso MD CHEMISTRY ORDERABLES Final Resu lt documented in this encounter Visit Diagnoses Not on filedocumented in this encounter Care Teams Commercial Airplane Pilot Relationship Specialty Start Date End Date Killian Domínguez MD [address] [place] [phone] PCP - General Internal Medicine 07/02/18 documented as of this encounter
--- NOTE | 2024-04-12 15:49 | PC.NURSE ---
Visitor with pt. reports pt. is now having CP. EKG protocol order placed and pt. brought into triage room for intervention.
--- NOTE | 2024-04-12 15:50 | ECG_ITS ---
Test Date: 2024-04-12 15:58:16 Measurements Intervals [place] Rate: 84 P: 76 SD: 190 QRS: 50 QRSD: 83 T: 79 QT: 371 QTc: 440 Interpretive Statements SINUS RHYTHM POSSIBLE LEFT ATRIAL ENLARGEMENT CANNOT R/O SEPTAL INFARCT, AGE INDETERMINATE BASELINE ARTIFACT- I, II, III, AVR, AVL, AVF, V2-V6 ABNORMAL ECG Compared to ECG 01/02/2024 15:07:31 NO SIGNIFICANT CHANGE Electronically Signed On 04-12-2024 16:37:40 MULE DEVELOPER by Madi Pitts D.O.
--- NOTE | 2024-04-12 18:15 | PC.NURSE ---
Pt. family states they are leaving with the pt. Pt. seen being wheeled out of ER doors.
--- OUTSIDE RECORDS SUMMARY | 2024-04-12 19:07 | XMS_ITS | Clinical Summary ---
Author Organization [facility] Address [address] [place] [address] Care Team Providers Care Development Analyst Name Role Phone Killian Domínguez MD Primary [...] 0 Active fluticasone propionate (FLONASE) 50 mcg/spray Hart[place], Suspension nasal inhaler SPRAY 1 SPRAY INTO [...] Encounters Date Type Department Care Team Description 04/12/2024 Orders Only [facility] Oncology and Hematology - [address] [place] [address] Chadwick Enciso MD 04/12/2024 Abstract [facility] Oncology and Hematology - [address] [place] [address] Chadwick Enciso MD 04/11/2024 Orders Only [facility] Oncology and Hematology - [address] [place] [address] Chadwick Enciso MD 04/11/2024 Abstract [facility] Oncology and Hematology - [address] [place] [address] Chadwick Enciso MD 03/09/2024 External Device Data [...] on file Legal Sex Female 5:21 AM SWITCHBOARD TROUBLESHOOTER Gender Identity Not on file Sexual Orientation [...] st Contact Info) Description 04/15/2024 10:15 AM SWITCHBOARD TROUBLESHOOTER Office Visit [facility] Oncology and Hematology - Leslie [address] [facility] [address] [place] [address] Chadwick Enciso MD [address] [facility] [address] [place] [address] Health Maintenance Due Date Last [...] Procedure Name Priority Date/Time Associated Diagnosis Comments CANCER ANTIGEN 15-3 Routine 04/08/2024 4 :14 PM SWITCHBOARD TROUBLESHOOTER COMPREHENSIVE METABOLIC PANEL Routine 04/08/2024 3:28 PM SWITCHBOARD TROUBLESHOOTER XR DEXA BONE DENSITY AXIAL 1 OR MORE SITES Routine 01/16/2020 Aromatase inhibitor use from Last 3 Months or Most Recently Relevant to Health Maintenance Results * CANCER ANTIGEN 15-3 (04/08/2024 4:14 PM SWITCHBOARD TROUBLESHOOTER) Blood Chadwick Enciso MD CHEMISTRY ORDERABLES Final Resu lt * COMPREHENSIVE METABOLIC PANEL (04/08/2024 3:28 PM SWITCHBOARD TROUBLESHOOTER) Blood Chadwick Enciso MD CHEMISTRY ORDERABLES Final Resu lt * XR DEXA BONE DENSITY AXIAL 1 OR MORE SITES (01/16/2020) Anatomical Region Laterality Modality Other [facility] ORDERA BLES Final Result from Last 3 Months or Most Recently Relevant to Health Maintenance Insurance MEDICARE PART A AND B MEDICARE PART A AND B GENERIC PAYOR Care Teams Development Analyst Relationship Specialty Start Date End Date Killian Domínguez MD [address] [place] [phone] PCP - General Internal Medicine 07/02/18
--- OUTSIDE RECORDS SUMMARY | 2024-04-12 19:07 | XMS_ITS | Referral Summary ---
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 Continue AREDS. Pt wants to seek care closer to home. Schedule for consult at [facility] in [place]. F/u here prn. Assessment & Plan (07/01/2023 2:46 PM CDT): Stable with no signs of exudative disease on exam today. F/u in 6 months for repeat DFE and mac OCT. ANG (iron deficiency anemia) 04/10/2023 Acute upper GI bleed 03/21/2023 Assessment & Plan (03/31/2023 3:09 PM PHOTOGRAPHY TEACHER): CT A/P GI bleed protocol on admission with 2 foci of arterial enhancement and blooming on delayed images in the 2nd and 3rd portions of the duodenum compatible with active extravasation. Hgb 4.5 (baseline 11, 11/2022) from 6 on 03/16. Iron deficient on presentation to OSH, iron deficiency resolved s/p IV repletion. B12 wnl. No hypotension. Pt is Evangel[employer] and does not accept whole blood products. [...] 03/21/2023 Assessment & Plan (03/21/2023 2:57 AM PHOTOGRAPHY TEACHER): - Home nightly CPAP Breast cancer 03/21/2023 Assessment & Plan (03/21/2023 2:59 AM PHOTOGRAPHY TEACHER): R breast CA (2018, ER+) s/p R mastectomy, chemotherapy, and radiation now on surveillance. Was on exemestane until recently, she reports Oncology stopped it due to concern about potential adverse effects. Pulmonary embolism 03/21/2023 Assessment & Plan (03/27/2023 6:23 PM PHOTOGRAPHY TEACHER): Hospitalized at OSH 01/2023 with RSV; shortly [...] 03/21/2023 Assessment & Plan (04/01/2023 3:38 PM PHOTOGRAPHY TEACHER): Follows w/ OSH pulmonology. Mild expiratory wheezes [...] 03/21/2023 Assessment & Plan (03/21/2023 3:14 AM PHOTOGRAPHY TEACHER): - Hold home diltiazem 120 mg daily, losartan 50 mg daily pending clinical course given acute GI bleed Anxiety 03/21/2023 Assessment & Plan (03/21/2023 3:15 AM PHOTOGRAPHY TEACHER): - Home sertraline Acute anemia 03/20/2023 Assessment & Plan (04/03/2023 10:45 AM PHOTOGRAPHY TEACHER): Due to GIB. No melena since 03/24. Hgb has been on the low 5s. She is Evangelical and does not accept whole blood products. S/p 500 IV iron x2 at OSH - Heme consulted: After risk/benefit discussion with patient and loved ones regarding increased risk of DVT/PE expansion with Epo, decision made to proceed with erythrocyte stimulating agent. Patient received Aranesp 400 mcg SQ on 03/20 and 300 mcg on 03/28. Plan is Aranesp 300 mcg qweekly - [facility] unable to provide Aranesp; giving additional dose 04/03 prior to d/c. - She has a follow up appoint with Dr Pérez on 04/16/2023 at 1:30pm. - Order weekly CBC outpatient and have the results faxed to Dr Pérez at [phone] Pseudophakia of both eyes 12/31/2022 Assessment & Plan (07/01/2023 2:46 PM CDT): Stable. Observe. Assessment & Plan (01/01/2023 9:08 AM PHOTOGRAPHY TEACHER): Stable. Observe. Diastolic heart failure 09/11/2021 Assessment & Plan (03/24/2023 6:44 PM PHOTOGRAPHY TEACHER): Chart history of diastolic dysfunction, appears hypervolemic on admission with small bilateral pleural effusions and 2+ pitting edema BLEs. No S/s CHF exacerbation - Hold home Bumex 4 mg PO daily pending clinical course given acute GI bleed - TTE- Normal LV size and systolic function Left posterior capsular opacification 04/22/2019 Assessment & Plan (01/01/2023 9:10 AM PHOTOGRAPHY TEACHER): Stable. Observe. Assessment & Plan (12/25/2021 4:22 PM PHOTOGRAPHY TEACHER): Mild. Stable. observe. Assessment & Plan (06/26/2021 4:08 PM CDT): Stable. Observe. Assessment & Plan (01/24/2021 12:27 PM PHOTOGRAPHY TEACHER): Minimal impact on bcva. Observe. Visual symptoms likely due to uncorrected refractive error. Update SRx. Assessment & Plan (04/22/2019 2:56 PM PHOTOGRAPHY TEACHER): Not yet impacting BCVA. Observe. Update SRx for reading. Retinal drusen of both eyes 04/22/2019 Assessment & Plan (01/01/2023 9:09 AM PHOTOGRAPHY TEACHER): Progressive non-exudative AMD with GA OU. Recommended pt start AREDS vitamin supplements. F/u in 6 months for repeat DFE with mac OCT. Assessment & Plan (07/03/2022 4:10 PM CDT): Stable on exam today. No e/o conversion to exudative disease. Continue to follow q6mos. Assessment & Plan (12/25/2021 4:22 PM PHOTOGRAPHY TEACHER): cuticular drusen OU. Low risk of conversion to exudative disease. Repeat dfe in 6 mos. Assessment & Plan (06/26/2021 4:08 PM CDT): No active exudative disease evident on exam and OCT today. Continue to follow q6mo. Assessment & Plan (01/24/2021 12:27 PM PHOTOGRAPHY TEACHER): Stable on exam. Will recheck OCT at f/u. Assessment & Plan (04/22/2019 2:55 PM PHOTOGRAPHY TEACHER): Small hard drusen OU. Mild. Annual exam. 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 Assessment & Plan (04/22/2019 2:57 PM PHOTOGRAPHY TEACHER): Variable blur when reading likely due to [...] on file Legal Sex Female 3:01 AM PHOTOGRAPHY TEACHER Gender Identity Not on file Sexual Orientation [...] - BOTH EYES Routine 03/23/2024 1:32 PM PHOTOGRAPHY TEACHER Early dry stage nonexudative age-related macular degeneration of both eyes from Last 3 Months Results * OCT, Retina - OU - Both Eyes (03/23/2024 1:32 PM PHOTOGRAPHY TEACHER) Anatomical Region Laterality Modality Head Optical Coherenc e Tomography Narrative 03/23/2024 1:32 PM PHOTOGRAPHY TEACHER Right Eye Quality was good. Scan locations included subfoveal. Progression has been stable. Findings include pigment epithelial detachment, subretinal scarring. Left Eye Quality was good. Progression has been stable. Findings include pigment epithelial detachment, subretinal scarring. Notes Slight SRF super to disc. Linus Carolina OD OPHTH TOMOGRAPHY Final Resu lt from Last 3 Months Insurance MEDICARE [address] & [facility] SUPPLEMENT MEDICARE COMMERCIAL GENERIC MEDICARE [place] [id number] [address] & [facility] SUPPLEMENT Advance Directives For more information, please contact: [phone] Documents on File Type Date Recorded Patient Douper Expl anation ADVANCE DIRECTIVE 04/07/2023 7:01 PM POWER OF FOREIGN BANKNOTE TELLER TRADER-MEDICAL * Full Code (Latest Code Status on File) Date Activated Date Inactivated Comments 03/20/2023 7:03 PM 04/03/2023 5:45 PM
--- OUTSIDE RECORDS SUMMARY | 2024-04-12 19:07 | XMS_ITS | Encounter Summary ---
Author Organization [facility] Address [address] [place] [address] Care Team Providers Care Coal Dumping Equipment Operator Name Role Phone Killian Domínguez MD Primary Care Provider [phone] Encounter Details Date Type Department Care Team (Late Contact Info) Description 04/11/2024 Abstract [facility] Oncology and Hematology [address] [place] [address] Chadwick Enciso MD [address] [employer] [address] [place] [phone] Social History Tobacco Use Types Packs/Day Years Used Date Smoking Tobacco: Former Cigarettes 1.5 8 1 - [birth year]20/1962 Smokeless Tobacco: Never Alcohol Use Standard Drinks/Week Comments Yes 0 (1 standard drink = 0.6 oz pur e alcohol) Comments No Sex and Gender Information Value Date Recorded Sex Assigned at Not on file Legal Sex Female 5:21 AM CLINICAL PSYCHOLOGY TEACHER Gender Identity Not on file Sexual Orientation Not on file documented as of this encounter Plan of Treatment Upcoming Encounters Date Type Department Care Team (Late st Contact Info) Description 04/15/2024 10:15 AM CLINICAL PSYCHOLOGY TEACHER Office Visit [facility] Oncology and Hematology - [address] [place] [address] Chadwick Enciso MD [address] [employer] [address] [place] [phone] documented as of this encounter Visit Diagnoses Not on filedocumented in this encounter Care Teams Coal Dumping Equipment Operator Relationship Specialty Start Date End Date Killian Domínguez MD [address] [place] [phone] PCP - General Internal Medicine 07/02/18 documented as of this encounter
--- OUTSIDE RECORDS SUMMARY | 2024-04-12 19:07 | XMS_ITS | Clinical Summary ---
Author Organization [facility] Address [address] [place] [address] Care Team Providers Care Sample Maker Hand Name Role Phone None, Provider Primary Care Provider Unavaila ble Encounters Date Type Department Care Team Description 04/12/2024 6:58 PM [facility] Emergency [facility] Emergency Room [id number] [place] [id number] from Last 3 Months Social History Tobacco Use Types Packs/Day Years [...] Years (2 of 2 - PCV) 12/15/2019 12/14/2018, 12/05/2009 COVID-19 Vaccine ( - season) 2023 Influenza Adult (#1) 2023 [...] complete this topic Insurance MEDICARE Care Teams Sample Maker Hand Relationship Specialty Start Date End Date None, Provider, PCP - General 11/23/18
--- OUTSIDE RECORDS SUMMARY | 2024-04-12 19:07 | XMS_ITS | Encounter Summary ---
Author Organization [facility] [employer] [facility] Address [address] [place] [address] Care Team Providers Care Chair Spring Assembler Name Role Phone Killian Domínguez MD Primary Care Provider [phone] Encounter Details Date Type Department Care Team (Late Contact Info) Description 04/11/2024 Orders Only [facility] Oncology and Hematology - [address] [place] [address] Chadwick Enciso MD [address] [employer] [address] [place] [phone] Social History Tobacco Use Types Packs/Day Years Used Date Smoking Tobacco: Former Cigarettes 1.5 8 1 - [birth year]20/1962 Smokeless Tobacco: Never Alcohol Use Standard Drinks/Week Comments Yes 0 (1 standard drink = 0.6 oz pur e alcohol) Comments No Sex and Gender Information Value Date Recorded Sex Assigned at Not on file Legal Sex Female 5:21 AM PUMPMAN Gender Identity Not on file Sexual Orientation Not on file documented as of this encounter Plan of Treatment Upcoming Encounters Date Type Department Care Team (Late st Contact Info) Description 04/15/2024 10:15 AM PUMPMAN Office Visit [facility] Oncology and Hematology - Bill [address] [place] [address] Chadwick Enciso MD [address] [place] [phone] documented as of this encounter Procedures Procedure Name Priority Date/Time Associated Diagnosis Comments COMPREHENSIVE METABOLIC PANEL Routine 04/08/2024 3:28 PM PUMPMAN documented in this encounter Results * COMPREHENSIVE METABOLIC PANEL (04/08/2024 3:28 PM PUMPMAN) Blood Chadwick Enciso MD CHEMISTRY ORDERABLES Final Resu lt documented in this encounter Visit Diagnoses Not on filedocumented in this encounter Care Teams Chair Spring Assembler Relationship Specialty Start Date End Date Killian Domínguez MD [address] [place] [phone] PCP - General Internal Medicine 07/02/18 documented as of this encounter
--- OUTSIDE RECORDS SUMMARY | 2024-04-12 19:07 | XMS_ITS ---
Author Organization [facility] Address [facility] [place] [address] Care Team Providers Care Occupational Analyst Name Role Phone Unavailable Primary Care Provider Unavailabl e Active Problems Problem Noted Date Diagnosed Date Lesion of eyelid 07/01/2023 Assessment & Plan (07/01/2023 2:45 PM CDT): Images from the original note were not included. Schedule for consult with oculoplastics for excision. 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 Continue AREDS. Pt wants to seek care closer to home. Schedule for consult at [facility] in [place]. F/u here prn. Assessment & Plan (07/01/2023 2:46 PM CDT): Stable with no signs of exudative disease on exam today. F/u in 6 months for repeat DFE and mac OCT. ANG (iron deficiency anemia) 04/10/2023 Acute upper GI bleed 03/21/2023 Assessment & Plan (03/31/2023 3:09 PM PLACEMENT DIRECTOR): CT A/P GI bleed protocol on admission with 2 foci of arterial enhancement and blooming on delayed images in the 2nd and 3rd portions of the duodenum compatible with active extravasation. Hgb 4.5 (baseline 1111/2022) from 6 on 03/16. Iron deficient on presentation to OSH, iron deficiency resolved s/p IV repletion. B12 wnl. No hypotension. Pt is [employer] and does not accept whole blood products. [...] 03/21/2023 Assessment & Plan (03/21/2023 2:57 AM PLACEMENT DIRECTOR): - Home nightly CPAP Breast cancer 03/21/2023 Assessment & Plan (03/21/2023 2:59 AM PLACEMENT DIRECTOR): R breast CA (2018, ER+) s/p R mastectomy, chemotherapy, and radiation now on surveillance. Was on exemestane until recently, she reports Oncology stopped it due to concern about potential adverse effects. Pulmonary embolism 03/21/2023 Assessment & Plan (03/27/2023 6:23 PM PLACEMENT DIRECTOR): Hospitalized at OSH 01/2023 with RSV; shortly [...] 03/21/2023 Assessment & Plan (04/01/2023 3:38 PM PLACEMENT DIRECTOR): Follows w/ OSH pulmonology. Mild expiratory wheezes [...] 03/21/2023 Assessment & Plan (03/21/2023 3:14 AM PLACEMENT DIRECTOR): - Hold home diltiazem 120 mg daily, losartan 50 mg daily pending clinical course given acute GI bleed Anxiety 03/21/2023 Assessment & Plan (03/21/2023 3:15 AM PLACEMENT DIRECTOR): - Home sertraline Acute anemia 03/20/2023 Assessment & Plan (04/03/2023 10:45 AM PLACEMENT DIRECTOR): Due to GIB. No melena since 03/24. Hgb has been on the low 5s. She is [employer] and does not accept whole blood products. S/p 500 IV iron x2 at OSH - Heme consulted: After risk/benefit discussion with patient and loved ones regarding increased risk of DVT/PE expansion with Epo, decision made to proceed with erythrocyte stimulating agent. Patient received Aranesp 400 mcg SQ on 03/20 and 300 mcg on 03/28. Plan is Aranesp 300 mcg qweekly - [facility] unable to provide Aranesp; giving additional dose 04/03 prior to d/c. - She has a follow up appoint with Dr Pérez on 04/16/2023 at 1:30pm. - Order weekly CBC outpatient and have the results faxed to Dr Pérez at [phone] Pseudophakia of both eyes 12/31/2022 Assessment & Plan (07/01/2023 2:46 PM CDT): Stable. Observe. Assessment & Plan (01/01/2023 9:08 AM PLACEMENT DIRECTOR): Stable. Observe. Diastolic heart failure 09/11/2021 Assessment & Plan (03/24/2023 6:44 PM PLACEMENT DIRECTOR): Chart history of diastolic dysfunction, appears hypervolemic on admission with small bilateral pleural effusions and 2+ pitting edema BLEs. No S/s CHF exacerbation - Hold home Bumex 4 mg PO daily pending clinical course given acute GI bleed - TTE- Normal LV size and systolic function Left posterior capsular opacification 04/22/2019 Assessment & Plan (01/01/2023 9:10 AM PLACEMENT DIRECTOR): Stable. Observe. Assessment & Plan (12/25/2021 4:22 PM PLACEMENT DIRECTOR): Mild. Stable. observe. Assessment & Plan (06/26/2021 4:08 PM CDT): Stable. Observe. Assessment & Plan (01/24/2021 12:27 PM PLACEMENT DIRECTOR): Minimal impact on bcva. Observe. Visual symptoms likely due to uncorrected refractive error. Update SRx. Assessment & Plan (04/22/2019 2:56 PM PLACEMENT DIRECTOR): Not yet impacting BCVA. Observe. Update SRx for reading. Retinal drusen of both eyes 04/22/2019 Assessment & Plan (01/01/2023 9:09 AM PLACEMENT DIRECTOR): Progressive non-exudative AMD with GA OU. Recommended pt start AREDS vitamin supplements. F/u in 6 months for repeat DFE with mac OCT. Assessment & Plan (07/03/2022 4:10 PM CDT): Stable on exam today. No e/o conversion to exudative disease. Continue to follow q6mos. Assessment & Plan (12/25/2021 4:22 PM PLACEMENT DIRECTOR): cuticular drusen OU. Low risk of conversion to exudative disease. Repeat dfe in 6 mos. Assessment & Plan (06/26/2021 4:08 PM CDT): No active exudative disease evident on exam and OCT today. Continue to follow q6mo. Assessment & Plan (01/24/2021 12:27 PM PLACEMENT DIRECTOR): Stable on exam. Will recheck OCT at f/u. Assessment & Plan (04/22/2019 2:55 PM PLACEMENT DIRECTOR): Small hard drusen OU. Mild. Annual exam. Exposure keratopathy 04/22/2019 Assessment & Plan (12/25/2021 4:22 PM PLACEMENT DIRECTOR): ATs prn. Assessment & Plan (04/22/2019 2:57 PM PLACEMENT DIRECTOR): Variable blur when reading likely due to [...]
--- OUTSIDE RECORDS SUMMARY | 2024-04-12 19:07 | XMS_ITS | Clinical Summary ---
Author Organization [facility] Address [facility] [place] [address] Care Team Providers Care Production Director Name Role Phone Unavailable Primary Care Provider [...] 07/01/2023 Assessment & Plan (03/23/2024 1:34 PM DEALER ANALYST): Slight srf sup to disc OD now with diffuse drusen and some atrophy OU. Continue AREDS. Pt wants to seek care closer to home. Schedule for consult at [facility] in [place]. F/u here prn. Assessment & Plan (07/01/2023 2:46 PM CDT): Stable with no signs of exudative disease on exam today. F/u in 6 months for repeat DFE and mac OCT. ANG (iron deficiency anemia) 04/10/2023 Acute upper GI bleed 03/21/2023 Assessment & Plan (03/31/2023 3:09 PM DEALER ANALYST): CT A/P GI bleed protocol on admission with 2 foci of arterial enhancement and blooming on delayed images in the 2nd and 3rd portions of the duodenum compatible with active extravasation. Hgb 4.5 (baseline 11/2022) from 6 on 03/16. Iron deficient on presentation to OSH, iron deficiency resolved s/p IV repletion. B12 wnl. No hypotension. Pt is [employer] and does not accept whole blood products. [...] 03/21/2023 Assessment & Plan (03/21/2023 2:57 AM DEALER ANALYST): - Home nightly CPAP Breast cancer 03/21/2023 Assessment & Plan (03/21/2023 2:59 AM DEALER ANALYST): R breast CA (2018, ER+) s/p R mastectomy, chemotherapy, and radiation now on surveillance. Was on exemestane until recently, she reports Oncology stopped it due to concern about potential adverse effects. Pulmonary embolism 03/21/2023 Assessment & Plan (03/27/2023 6:23 PM DEALER ANALYST): Hospitalized at OSH 01/2023 with RSV; shortly [...] 03/21/2023 Assessment & Plan (04/01/2023 3:38 PM DEALER ANALYST): Follows w/ OSH pulmonology. Mild expiratory wheezes [...] 03/21/2023 Assessment & Plan (03/21/2023 3:14 AM DEALER ANALYST): - Hold home diltiazem 120 mg daily, losartan 50 mg daily pending clinical course given acute GI bleed Anxiety 03/21/2023 Assessment & Plan (03/21/2023 3:15 AM DEALER ANALYST): - Home sertraline Acute anemia 03/20/2023 Assessment & Plan (04/03/2023 10:45 AM DEALER ANALYST): Due to GIB. No melena since 03/24. Hgb has been on the low 5s. She is [employer] and does not accept whole blood products. S/p 500 IV iron x2 at OSH - Heme consulted: After risk/benefit discussion with patient and loved ones regarding increased risk of DVT/PE expansion with Epo, decision made to proceed with erythrocyte stimulating agent. Patient received Aranesp 400 mcg SQ on 03/20 and 300 mcg on 03/28. Plan is Aranesp 300 mcg qweekly - [facility] unable to provide Aranesp; giving additional dose 04/03 prior to d/c. - She has a follow up appoint with Dr Pérez on 04/16/2023 at 1:30pm. - Order weekly CBC outpatient and have the results faxed to Dr Pérez at [phone] Pseudophakia of both eyes 12/31/2022 Assessment & Plan (07/01/2023 2:46 PM CDT): Stable. Observe. Assessment & Plan (01/01/2023 9:08 AM DEALER ANALYST): Stable. Observe. Diastolic heart failure 09/11/2021 Assessment & Plan (03/24/2023 6:44 PM DEALER ANALYST): Chart history of diastolic dysfunction, appears hypervolemic on admission with small bilateral pleural effusions and 2+ pitting edema BLEs. No S/s CHF exacerbation - Hold home Bumex 4 mg PO daily pending clinical course given acute GI bleed - TTE- Normal LV size and systolic function Left posterior capsular opacification 04/22/2019 Assessment & Plan (01/01/2023 9:10 AM DEALER ANALYST): Stable. Observe. Assessment & Plan (12/25/2021 4:22 PM DEALER ANALYST): Mild. Stable. observe. Assessment & Plan (06/26/2021 4:08 PM CDT): Stable. Observe. Assessment & Plan (01/24/2021 12:27 PM DEALER ANALYST): Minimal impact on bcva. Observe. Visual symptoms likely due to uncorrected refractive error. Update SRx. Assessment & Plan (04/22/2019 2:56 PM DEALER ANALYST): Not yet impacting BCVA. Observe. Update SRx for reading. Retinal drusen of both eyes 04/22/2019 Assessment & Plan (01/01/2023 9:09 AM DEALER ANALYST): Progressive non-exudative AMD with GA OU. Recommended pt start AREDS vitamin supplements. F/u in 6 months for repeat DFE with mac OCT. Assessment & Plan (07/03/2022 4:10 PM CDT): Stable on exam today. No e/o conversion to exudative disease. Continue to follow q6mos. Assessment & Plan (12/25/2021 4:22 PM DEALER ANALYST): cuticular drusen OU. Low risk of conversion to exudative disease. Repeat dfe in 6 mos. Assessment & Plan (06/26/2021 4:08 PM CDT): No active exudative disease evident on exam and OCT today. Continue to follow q6mo. Assessment & Plan (01/24/2021 12:27 PM DEALER ANALYST): Stable on exam. Will recheck OCT at f/u. Assessment & Plan (04/22/2019 2:55 PM DEALER ANALYST): Small hard drusen OU. Mild. Annual exam. Exposure keratopathy 04/22/2019 Assessment & Plan (12/25/2021 4:22 PM DEALER ANALYST): ATs prn. Assessment & Plan (04/22/2019 2:57 PM DEALER ANALYST): Variable blur when reading likely due to ocular surface disruption/unstable tear film. Increase use of ATs before reading. Encounters Date Type Department Care Team Description 03/23/2024 12:45 PM DEALER ANALYST Office Visit [facility] Ophthalmology [address] [facility] 2nd [address] [place] [address] Linus Carolina, OD Early dry stage nonexudative age-related macular degeneration of both eyes (Primary Dx); Pseudophakia of both eyes 01/18/2024 Telephone [facility] Hematology [address] [facility] [address] [place] [address] Ursula Santiago RN from Last [...] on file Legal Sex Female 3:01 AM DEALER ANALYST Gender Identity Not on file Sexual Orientation [...] - BOTH EYES Routine 03/23/2024 1:32 PM DEALER ANALYST Early dry stage nonexudative age-related macular degeneration of both eyes from Last 3 Months Results * OCT, Retina - OU - Both Eyes (03/23/2024 1:32 PM DEALER ANALYST) Anatomical Region Laterality Modality Head Optical Coherenc e Tomography Narrative 03/23/2024 1:32 PM DEALER ANALYST Right Eye Quality was good. Scan locations included subfoveal. Progression has been stable. Findings include pigment epithelial detachment, subretinal scarring. Left Eye Quality was good. Progression has been stable. Findings include pigment epithelial detachment, subretinal scarring. Notes Slight SRF super to disc. Linus Carolina OD OPHTH TOMOGRAPHY Final Resu lt from Last 3 Months Insurance MEDICARE [place] [id number] [facility] SUPPLEMENT MEDICARE COMMERCIAL GENERIC MEDICARE [place] [id number] [facility] SUPPLEMENT Advance Directives For more information, please contact: [phone] Documents on File Type Date Recorded Patient Crane Operator Cab Expl anation ADVANCE DIRECTIVE 04/07/2023 7:01 PM POWER OF HOIST OPERATOR-MEDICAL * Full Code (Latest Code Status on File) Date Activated Date Inactivated Comments 03/20/2023 7:03 PM 04/03/2023 5:45 PM
--- OUTSIDE RECORDS SUMMARY | 2024-04-12 19:07 | XMS_ITS | Encounter Summary ---
Author Organization [facility] [email or web address] [facility] Address [address] [place] [address] Care Team Providers Care Transportation Aide Name Role Phone Killian Domínguez MD Primary Care Provider [phone] Encounter Details Date Type Department Care Team (Late Contact Info) Description 04/12/2024 Orders Only [facility] Oncology and Hematology - [address] [place] [address] Chadwick nEciso MD [address] [employer] [address] [place] [phone] Social History Tobacco Use Types Packs/Day Years Used Date Smoking Tobacco: Former Cigarettes 1.5 8 1 - 11/20/1962 Smokeless Tobacco: Never Alcohol Use Standard Drinks/Week Comments Yes 0 (1 standard drink = 0.6 oz pur e alcohol) Comments No Sex and Gender Information Value Date Recorded Sex Assigned at Not on file Legal Sex Female 5:21 AM PRESS OPERATOR [employer] Gender Identity Not on file Sexual Orientation Not on file documented as of this encounter Plan of Treatment Upcoming Encounters Date Type Department Care Team (Late st Contact Info) Description 04/15/2024 10:15 AM PRESS OPERATOR [employer] Office Visit [facility] Oncology and Hematology - [address] [place] [address] hCadwick Enciso MD [address] [employer] [address] [place] [phone] documented as of this encounter Procedures Procedure Name Priority Date/Time Associated Diagnosis Comments CANCER ANTIGEN 15-3 Routine 04/08/2024 4:14 PM PRESS OPERATOR [employer] documented in this encounter Results * CANCER ANTIGEN 15-3 (04/08/2024 4:14 PM PRESS OPERATOR [employer]) Blood Chadwick Enciso MD CHEMISTRY ORDERABLES Final Resu lt documented in this encounter Visit Diagnoses Not on filedocumented in this encounter Care Teams Transportation Aide Relationship Specialty Start Date End Date Killian Domínguez MD [address] [place] [phone] PCP - General Internal Medicine 07/02/18 documented as of this encounter
--- OUTSIDE RECORDS SUMMARY | 2024-04-12 19:07 | XMS_ITS | Encounter Summary ---
Author Organization [facility] [employer] [facility] Address [address] [place] [address] Care Team Providers Care Hot Stone Setter Name Role Phone Killian Domínguez MD Primary Care Provider [phone] Encounter Details Date Type Department Care Team (Late Contact Info) Description 04/12/[address] [facility] Oncology and Hematology [address] [place] [address] Chadwick Enciso MD [address] [address] [place] [phone] Social History Tobacco Use Types Packs/Day Years Used Date Smoking Tobacco: Former Cigarettes 1.5 8 1 - [birth year]20/1962 Smokeless Tobacco: Never Alcohol Use Standard Drinks/Week Comments Yes 0 (1 standard drink = 0.6 oz pur e alcohol) Comments No Sex and Gender Information Value Date Recorded Sex Assigned at Not on file Legal Sex Female 5:21 AM TENANT SELECTOR Gender Identity Not on file Sexual Orientation Not on file documented as of this encounter Plan of Treatment Upcoming Encounters Date Type Department Care Team (Late st Contact Info) Description 04/15/2024 10:15 AM TENANT SELECTOR Office Visit [facility] Oncology and Hematology - [address] [place] [address] Chadwick Enciso MD [address] [place] [phone] documented as of this encounter Visit Diagnoses Not on filedocumented in this encounter Care Teams Hot Stone Setter Relationship Specialty Start Date End Date Killian Domínguez MD [address] [place] [phone] PCP - General Internal Medicine 07/02/18 documented as of this encounter
--- OUTSIDE RECORDS SUMMARY | 2024-04-12 19:07 | XMS_ITS | Patient Health Summary ---
Author Organization [facility] Address [address] [facility] [place] [address] Care Team Providers Care Legal Executive Name Role Phone Micheal Rodriguez MD Primary Care Provider [phone] [facility],non-owned Affiliates and Associated Physician Practices is amultiple site organization consisting of ambulatory clinics and hospital sitesin [place], [place], [place] and [place]. This disclosure is being madepursuant to the Care Everywhere program and may not contain all information available regarding this patient. Last updated 17.[facility] Allergies * Codeine(Urticaria) -High Criticality * [...] azelastine (Astelin) 0.1 % nasal spray(Started 03/14/2024) [place] 1 (one) spray into each nostril 2 times daily 4 refills by 03/14/2025 Ended Medications* azelastine (Astelin) 0.1 % nasal spray(Started 02/16/2023) (Discontinued) [place]amoille 1 (one) spray into the nose 2 [...] Comments Blood Pressure 178/80 03/14/2024 10:22 AM TERMINAL GAUGER Pulse 65 03/14/2024 10:22 AM TERMINAL GAUGER Temperature - - Respiratory Rate - - Oxygen Saturation - - Inhaled Oxygen Concentration - - Weight 76.2 kg (168 lb) 03/14/2024 10:22 AM TERMINAL GAUGER Height 162.6 cm (5' 4 ) 03/14/2024 10:22 AM TERMINAL GAUGER Body Mass Index 28.84 03/14/2024 10:22 AM TERMINAL GAUGER Procedures * AL NASAL ENDOSCOPY,DX(Performed 03/14/2024) Performed for Nasal congestion, Nasal septal spur, Chronic rhinitis, Post-nasal drip Results * AL NASAL ENDOSCOPY,DX (03/14/2024 10:57 AM TERMINAL GAUGER) Narrative Jimbo Canas MD - 03/14/2024 10:57 AM TERMINAL GAUGER Jimbo Canas MD 03/14/2024 11:05 AM Due [...] MD PROCEDURE/MINOR KENT RGICAL ORDERABLES Care Teams Legal Executive Relationship Specialty Start Date End Date Micheal Rodriguez MD [address] [facility] [address] [place] [id number] PCP - General Internal Medicine 03/14/24
--- OUTSIDE RECORDS SUMMARY | 2024-04-12 19:07 | XMS_ITS | Encounter Summary ---
Author Organization [facility] Address [address] [place] [address] Care Team Providers Care Lock Technician Name Role Phone None, Provider Primary Care Provider Unavaila ble Encounter Details Date Type Department Care Team (Late st Contact Info) Description 04/12/2024 6:58 PM [facility] Emergency [facility] Emergency Room [address] [place] [address] Social History Tobacco Use Types Packs/Day Years Used Date Smoking Tobacco: Never Assessed Comments Unknown Sex and Gender Information Value Date Recorded Sex Assigned at Not on file Legal Sex Female 6:51 PM CDT Gender Identity Not on file Sexual Orientation Not on file documented as of this encounter Plan of Treatment Not on file documented as of this encounter Visit Diagnoses Not on filedocumented in this encounter Care Teams Lock Technician Relationship Specialty Start Date End Date None, ProviderMD PCP - General 11/23/18 documented as of this encounter
--- OUTSIDE RECORDS SUMMARY | 2024-04-12 19:07 | XMS_ITS | Referral Summary ---
Author Organization [facility] Address [address] [facility] [place] [address] Care Team Providers Care Pull Socket Assembler Name Role Phone Micheal Rodriguez MD Primary Care Provider [phone] Source Comments [facility] [employer] [facility],non-owned Affiliates and Associated Physician Practices is amultiple site organization consisting of ambulatory clinics and hospital sitesin [place], [place], [place] and [place]. This disclosure is being madepursuant to the Care Everywhere program and may not contain all information available regarding this patient. Last updated 17.[facility] [employer] [facility] [employer] Encounters Date Type Department Care Team Description 03/15/2024 Travel 03/14/2024 Travel 03/14/2024 10:30 AM EDI ANALYST Office Visit [facility] - ENT [address] [place] [phone] Jimbo Canas MD Nasal congestion (Primary Dx); [...] Active azelastine (Astelin) 0.1 % nasal spray [place] 1 (one) spray into each nostril 2 times daily 90 mL 4 03/14/2024 Active azelastine (Astelin) 0.1 % nasal spray [place] 1 (one) spray into the nose 2 [...] Comments Blood Pressure 178/80 03/14/2024 10:22 AM EDI ANALYST Pulse 65 03/14/2024 10:22 AM EDI ANALYST Temperature - - Respiratory Rate - - Oxygen Saturation - - Inhaled Oxygen Concentration - - Weight 76.2 kg (168 lb) 03/14/2024 10:22 AM EDI ANALYST Height 162.6 cm (5' 4 ) 03/14/2024 10:22 AM EDI ANALYST Body Mass Index 28.84 03/14/2024 10:22 AM EDI ANALYST Plan of Treatment Upcoming Encounters Date Type Department Care Team (Late st Contact Info) Description 05/02/2024 10:00 AM CDT Appointment [facility] CAT SCAN [address] [place] [address] Jimbo Canas MD [address] [place] [address] 05/02/2024 10:30 AM CDT Office Visit [facility] - ENT [address] [facility], [place] [phone] Jimbo Canas MD [address] [facility] [address] [place] [address] Procedures Procedure Name Priority Date/Time Associated Diagnosis Comments [place] NASAL ENDOSCOPY,DX Routine 03/14/2024 10:57 AM EDI ANALYST Nasal congestion Nasal septal spur Chronic rhinitis Post-nasal drip from Last 3 Months Results * [place] NASAL ENDOSCOPY,DX (03/14/2024 10:57 AM EDI ANALYST) Narrative Jimbo Canas MD - 03/14/2024 10:57 AM EDI ANALYST Jimbo Canas MD 03/14/2024 11:05 AM Due [...] ORDERABLES from Last 3 Months Care Teams Pull Socket Assembler Relationship Specialty Start Date End Date Micheal Rodriguez MD [address] [facility] [address] [place] [address] PCP - General Internal Medicine 03/14/24
--- OUTSIDE RECORDS SUMMARY | 2024-04-12 19:07 | XMS_ITS | Clinical Summary ---
Author Organization [facility] [employer] Address [address] [facility] [place] [address] Care Team Providers Care Research Project Manager Name Role Phone Micheal Rodriguez MD Primary Care Provider [phone] Source Comments [facility] [employer],non-owned Affiliates and Associated Physician Practices is amultiple site organization consisting of ambulatory clinics and hospital sitesin [place], [place], [place] and [place]. This disclosure is being madepursuant to the Care Everywhere program and may not contain all information available regarding this patient. Last updated 17.[employer] Allergies Active Allergy Reactions Criticality Noted Date [...] Active azelastine (Astelin) 0.1 % nasal spray [place] 1 (one) spray into each nostril 2 times daily 90 mL 4 03/14/2024 Active azelastine (Astelin) 0.1 % nasal spray [place] 1 (one) spray into the nose 2 times daily 02/16/2023 03/14/2024 Discontinued( List Clean-Up) Active Problems No known active problems Encounters Date Type Department Care Team Description 03/15/2024 Travel 03/14/2024 10:30 AM PICKLING TANK OPERATOR Office Visit [facility] - ENT [address] [place] [phone] Jimbo Canas MD Nasal congestion (Primary Dx); [...] Comments Blood Pressure 178/80 03/14/2024 10:22 AM PICKLING TANK OPERATOR Pulse 65 03/14/2024 10:22 AM PICKLING TANK OPERATOR Temperature - - Respiratory Rate - - Oxygen Saturation - - Inhaled Oxygen Concentration - - Weight 76.2 kg (168 lb) 03/14/2024 10:22 AM PICKLING TANK OPERATOR Height 162.6 cm (5' 4 ) 03/14/2024 10:22 AM PICKLING TANK OPERATOR Body Mass Index 28.84 03/14/2024 10:22 AM PICKLING TANK OPERATOR Plan of Treatment Upcoming Encounters Date Type Department Care Team (Late st Contact Info) Description 05/02/2024 10:00 AM CDT Appointment [facility] CAT SCAN [address] [place] [address] Jimbo Canas MD [address] [facility] 2L [place] [address] 05/02/2024 10:30 AM CDT Office Visit [facility] - ENT [address] [facility], [place] [phone] Jimbo Canas MD [address] [facility] [address] [place] [address] Health Maintenance Due Date Last Done Comments [...] Procedure Name Priority Date/Time Associated Diagnosis Comments [place] NASAL ENDOSCOPY,DX Routine 03/14/2024 10:57 AM PICKLING TANK OPERATOR Nasal congestion Nasal septal spur Chronic rhinitis Post-nasal drip from Last 3 Months Results * [place] NASAL ENDOSCOPY,DX (03/14/2024 10:57 AM PICKLING TANK OPERATOR) Jimbo Sierra MD - 03/14/2024 10:57 AM PICKLING TANK OPERATOR Jimbo Canas MD 03/14/2024 11:05 AM Due [...] ORDERABLES from Last 3 Months Care Teams Research Project Manager Relationship Specialty Start Date End Date Micheal Rodriguez MD [address] [facility] [address] [place] [address] PCP - General Internal Medicine 03/14/24
--- OUTSIDE RECORDS SUMMARY | 2024-04-12 19:07 | XMS_ITS | Encounter Summary ---
Author Organization [facility] Address [address] [facility] [place] [address] Care Team Providers Care Acute Care Registered Nurse Name Role Phone Mark العلي DO Primary Care Provider [phone] Micheal Rodriguez MD Primary Care Provider [phone] Reason for Referral * Consultation (Routine) - Closed Specialty Diagnoses / Procedures Referred By Contac t Referred To Contact ENT-Otolaryngology Diagnoses Chronic rhinitis Lien Oseguera MD [address] [facility] [address] [place] [address] Jimbo Canas MD [address] [place] [address] Referral ID Status Reason Start Date Expiration Date V isits Requested Visits Authorized [id number] Closed Specialty Services Required 01/06/2024 01/05/2025 1 1 NESS ECONOMIST Encounter Details Date Type Department Care Team (Late st Contact Info) Description 01/06/2024 Transcribe Orders [facility] - Centralized Scheduling [address] [place] [address] Lien Oseguera MD [address] [facility] [address] [place] [address] Chronic rhinitis Social History Tobacco [...] Info) Description 05/02/2024 10:00 AM CDT Appointment [facility] CAT SCAN [address] [place] [address] Jimbo Canas MD [address] [facility] [address]L [place] [address] 05/02/2024 10:30 AM CDT Office Visit [facility] - ENT [address] [place] [address] Jimbo Canas MD [address] [facility] [address] [place] [address] Scheduled Referrals Name Type Priority Associated Diagnoses Order Schedule AMB REFERRAL TO ENT Outpatient Referral Routine Chronic rhinitis 1 Occurrences starting 01/06/2024 until 01/05/2025 documented as of this encounter Visit Diagnoses Diagnosis Chronic rhinitis- Primary documented in this encounter Care Teams Acute Care Registered Nurse Relationship Specialty Start Date End Date Mark العلي DO [address] [place] [phone] PCP - General 04/25/22 03/13/24 Micheal Rodriguez MD [address] [facility] [address] [place] [address] PCP - General Internal Medicine 03/14/24 documented as of this encounter
== END 2024-04-12 18:24 | disposition left against medical advice (07) ==
PROVIDERS: Emergency Provider Emergency Medicine
DX: R06.02 Shortness of breath (principal); J44.9 Chronic obstructive pulmonary disease, unspecified; I50.9 Heart failure, unspecified; Z86.718 Personal history of other venous thrombosis and embolism; Z79.01 Long term (current) use of anticoagulants; Z86.711 Personal history of pulmonary embolism; I10 Essential (primary) hypertension; Z85.3 Personal history of malignant neoplasm of breast
CPT/HCPCS: 93005; 99199

== ENCOUNTER 2024-05-04 08:46 | Outpatient (CLI) | payer MEDICARE, OTHER, SELFPAY ==
[2024-05-04 10:04] LABS: Hematocrit 36.1 % (37.0-47.0); Hemoglobin 11.8 g/dL (12.0-15.0); Immature Platelet Fraction Pct 7.8 % (0.9-11.2); Mean Corpuscular HGB Conc 32.7 g/dl (32-36); Mean Corpuscular Hemoglobin 29.9 pg (26-34); Mean Corpuscular Volume 91.6 fl (80-100); Mean Platelet Volume 11.5 fl (7.4-10.4); Platelet Count Result 125 k/mm3 (150-375); Red Blood Count 3.94 M/mm3 (4.2-5.4); Red Cell Distribution Width 14.1 % (11.5-14.5); White Blood Count 5.8 K/mm3 (4.5-10.0)
== END 2024-05-04 08:47 | disposition home or self-care (01) ==
PROVIDERS: Visit Provider Nurse Practitioner
DX: D64.9 Anemia, unspecified (principal)
CPT/HCPCS: 36415; 85027; 85055

== ENCOUNTER 2024-07-05 08:43 | Outpatient (CLI) | payer MEDICARE, OTHER, SELFPAY ==
--- NOTE | ~2024-07-05 | MM_ITS ---
EXAMINATION: MM screening jacobo LT w prema HISTORY: Screening TECHNIQUE: Craniocaudal and mediolateral oblique 3-D tomosynthesis images were obtained and synthetic 2-D images were generated. CAD analysis was submitted and interpreted. COMPARISON: Comparison to multiple prior studies sequentially, with oldest reviewed study dated 06/08. BREAST PARENCHYMAL COMPOSITION: Not dense: There are scattered areas of fibroglandular density. FINDINGS: There is no evidence of suspicious mass, calcification, or architectural distortion to sugg est malignancy in the left breast. There has been no suspicious interval change. IMPRESSION: 1. No mammographic evidence of malignancy. 2. Recommend routine screening mammography in one year. BI-RADS Category 1: Negative Reviewed, dictated and finalized at location B.
--- OUTSIDE RECORDS SUMMARY | 2024-07-05 08:58 | XMS_ITS | Encounter Summary ---
Author Organization [facility] Address [address] [facility] [place] [address] Care Team Providers Care Natural Remedy Consultant Name Role Phone Mark العلي DO Primary Care Provider [phone] Micheal Rodriguez MD Primary Care Provider [phone] Reason for Referral * Consultation (Routine) - Closed Specialty Diagnoses / Procedures Referred By Contac t Referred To Contact ENT-Otolaryngology Diagnoses Chronic rhinitis Lien Oseguera MD [address] [facility] [address] [place] [address] Phone: tel: fax: Jimbo Canas MD [address] [place] [address] Phone: tel: fax: Referral ID Status Reason Start Date Expiration Date V isits Requested Visits Authorized [id number] Closed Specialty Services Required 01/06/2024 01/05/2025 1 1 TRAFFIC CONTROLLER Encounter Details Date Type Department Care Team (Late st Contact Info) Description 01/06/2024 Transcribe Orders [facility] - Centralized Scheduling [address] [place] [phone] Lien Oseguera MD [address] [facility] [address] [place] [address] Chronic rhinitis Social History Tobacco Use Types Packs/Day Years Used Date Smoking Tobacco: Never Assessed Comments Unknown Sex and Gender Information Value Date Recorded Sex Assigned at Not on file Legal Sex Female 5:55 AM AIR TRAFFIC CONTROLLER Gender Identity Not on file Sexual Orientation Not on file documented as of this encounter Plan of Treatment Scheduled Referrals Name Type Priority Associated Diagnoses Order Schedule AMB REFERRAL TO ENT Outpatient Referral Routine Chronic rhinitis 1 Occurrences starting 01/06/2024 until 01/05/2025 documented as of this encounter Visit Diagnoses Diagnosis Chronic rhinitis- Primary documented in this encounter Care Teams Natural Remedy Consultant Relationship Specialty Start Date End Date Mark العلي DO [address] [place] [phone] PCP - General 04/25/22 03/13/24 Micheal Rodriguez MD [address] [facility] [address] [place] [address] PCP - General Internal Medicine 03/14/24 documented as of this encounter
--- OUTSIDE RECORDS SUMMARY | 2024-07-05 08:58 | XMS_ITS | Referral Summary ---
Author Organization [facility] Address [address] [place] [address] Care Team Providers Care On Air Director Name Role Phone Micheal Rodriguez MD Primary Care Provider [phone] Encounters Date Type Department Care Team Description 06/20/2024 11:00 AM CDT Office Visit [facility] Cardiology [address] [place] [address] Tiffanie Juarez NP Chronic diastolic heart failure (HCC) (Primary Dx); Edema, lower extremity from Last 3 Months Allergies Active Allergy Reactions Criticality Noted Date Comments Codeine Hives Medium 02/26/2018 Lisinopril Hives Medium 03/20/2023 Medications ipratropium-al buteroL (DUO-NEB) 0.5-2.5 mg/3 mL nebulizer solution INHALE [...] Active bumetanide (BUMEX) 2 mg tablet Take 1 tablet (2 mg total) by mouth daily 4 Active metoprolol XL (TOPROL-XL) 25 mg extended release tablet TAKE 2 TABLETS BY MOUTH DAILY 180 tablet 1 4 Active ALPRAZolam (XANAX) 0.25 mg tablet TAKE 1 TABLET BY MOUTH THREE TIMES A DAY NEEDED FOR ANXIETY 4 Active budesonide-for moteroL (SYMBICORT) 160-4.5 mcg/actuation inhaler Inhale 2 puffs 2 (two) times a day [address] (PROTONIX) 40 mg EC tablet Take 1 tablet (40 mg total) by mouth 2 (two) times a day 4 Active metOLazone (ZAROXOLYN) 2.5 mg tabletIndicati ons:Edema, lower extremity Take 1 tablet (2.5 mg total) by mouth daily for 4 days Take 30 minutes before bumetanide. 4 tablet 1 5 Active hydrocortisone (ANUSOL-HC) 2.5 % rectal cream APPLY RECTALLY TWICE A DAY FOR 10 DAYS 4 06/21/19 25 Discontinu ed(No longer taking - Do not display on AVS) predniSONE (DELTASONE) 10 mg tablet PLEASE SEE ATTACHED FOR DETAILED DIRECTIONS 4 06/21/19 25 Discontinu ed(No longer taking - Do not display on AVS) Active Problems Problem Noted Date Diagnosed Date Lesion of eyelid 07/01/2023 Assessment & Plan (07/01/2023 2:45 PM CDT): Images from the original note were not included. Schedule for consult with oculoplastics for excision. Early dry stage nonexudative age-related macular degeneration of both eyes 07/01/2023 Assessment & Plan (03/23/2024 1:34 PM EDGE STAINER MACHINE): Slight srf sup to disc OD now with diffuse drusen and some atrophy OU. Continue AREDS. Pt wants to seek care closer to home. Schedule for consult at [facility] in [place]. F/u here prn. Assessment & Plan (07/01/2023 2:46 PM CDT): Stable with no signs of exudative disease on exam today. F/u in 6 months for repeat DFE and mac OCT. ANG (iron deficiency anemia) 04/10/2023 Acute upper GI bleed 03/21/2023 Assessment & Plan (03/31/2023 3:09 PM EDGE STAINER MACHINE): CT A/P GI bleed protocol on admission with 2 foci of arterial enhancement and blooming on delayed images in the 2nd and 3rd portions of the duodenum compatible with active extravasation. Hgb 4.5 (baseline 11, 11/2022) from 6 on 03/16. Iron deficient on presentation to OSH, iron deficiency resolved s/p IV repletion. B12 wnl. No hypotension. Pt is [employer] and does not accept whole blood products. [...] 03/21/2023 Assessment & Plan (03/21/2023 2:57 AM EDGE STAINER MACHINE): - Home nightly CPAP Breast cancer 03/21/2023 Assessment & Plan (03/21/2023 2:59 AM EDGE STAINER MACHINE): R breast CA (2018, ER+) s/p R mastectomy, chemotherapy, and radiation now on surveillance. Was on exemestane until recently, she reports Oncology stopped it due to concern about potential adverse effects. Pulmonary embolism 03/21/2023 Assessment & Plan (03/27/2023 6:23 PM EDGE STAINER MACHINE): Hospitalized at OSH 01/2023 with RSV; shortly after discharge, readmitted with BLE edema and dyspnea and found to have DVT, PE. Started on Eliquis which was stopped 1 week ago due to melena, acute anemia. BLE Duplex 2/5 and 03/25 with no e/o RLE DVT [...] 03/21/2023 Assessment & Plan (04/01/2023 3:38 PM EDGE STAINER MACHINE): Follows w/ OSH pulmonology. Mild expiratory wheezes [...] 03/21/2023 Assessment & Plan (03/21/2023 3:14 AM EDGE STAINER MACHINE): - Hold home diltiazem 120 mg daily, losartan 50 mg daily pending clinical course given acute GI bleed Anxiety 03/21/2023 Assessment & Plan (03/21/2023 3:15 AM EDGE STAINER MACHINE): - Home sertraline Acute anemia 03/20/2023 Assessment & Plan (04/03/2023 10:45 AM EDGE STAINER MACHINE): Due to GIB. No melena since 03/24. Hgb has been on the low 5s. She is [employer] and does not accept whole blood products. S/p 500 IV iron x2 at OSH - Heme consulted: After risk/benefit discussion with patient and loved ones regarding increased risk of DVT/PE expansion with Epo, decision made to proceed with erythrocyte stimulating agent. Patient received Aranesp 400 mcg SQ on 03/20 and 300 mcg on 03/28. Plan is Aranesp 300 mcg qweekly - [facility] unable to provide Aranesp; giving additional dose 04/03 prior to d/c. - She has a follow up appoint with Dr Pérez on 04/16/2023 at 1:30pm. - Order weekly CBC outpatient and have the results faxed to Dr Pérez at [phone] Pseudophakia of both eyes 12/31/2022 Assessment & Plan (07/01/2023 2:46 PM CDT): Stable. Observe. Assessment & Plan (01/01/2023 9:08 AM EDGE STAINER MACHINE): Stable. Observe. Diastolic heart failure 09/11/2021 Assessment & Plan (03/24/2023 6:44 PM EDGE STAINER MACHINE): Chart history of diastolic dysfunction, appears hypervolemic on admission with small bilateral pleural effusions and 2+ pitting edema BLEs. No S/s CHF exacerbation - Hold home Bumex 4 mg PO daily pending clinical course given acute GI bleed - TTE- Normal LV size and systolic function Left posterior capsular opacification 04/22/2019 Assessment & Plan (01/01/2023 9:10 AM EDGE STAINER MACHINE): Stable. Observe. Assessment & Plan (12/25/2021 4:22 PM EDGE STAINER MACHINE): Mild. Stable. observe. Assessment & Plan (06/26/2021 4:08 PM CDT): Stable. Observe. Assessment & Plan (01/24/2021 12:27 PM EDGE STAINER MACHINE): Minimal impact on bcva. Observe. Visual symptoms likely due to uncorrected refractive error. Update SRx. Assessment & Plan (04/22/2019 2:56 PM EDGE STAINER MACHINE): Not yet impacting BCVA. Observe. Update SRx for reading. Retinal drusen of both eyes 04/22/2019 Assessment & Plan (01/01/2023 9:09 AM EDGE STAINER MACHINE): Progressive non-exudative AMD with GA OU. Recommended pt start AREDS vitamin supplements. F/u in 6 months for repeat DFE with mac OCT. Assessment & Plan (07/03/2022 4:10 PM CDT): Stable on exam today. No e/o conversion to exudative disease. Continue to follow q6mos. Assessment & Plan (12/25/2021 4:22 PM EDGE STAINER MACHINE): cuticular drusen OU. Low risk of conversion to exudative disease. Repeat dfe in 6 mos. Assessment & Plan (06/26/2021 4:08 PM CDT): No active exudative disease evident on exam and OCT today. Continue to follow q6mo. Assessment & Plan (01/24/2021 12:27 PM EDGE STAINER MACHINE): Stable on exam. Will recheck OCT at f/u. Assessment & Plan (04/22/2019 2:55 PM EDGE STAINER MACHINE): Small hard drusen OU. Mild. Annual exam. Exposure keratopathy 04/22/2019 Assessment & Plan (12/25/2021 4:22 PM EDGE STAINER MACHINE): ATs prn. Assessment & Plan (04/22/2019 2:57 PM EDGE STAINER MACHINE): Variable blur when reading likely due to [...] on file Legal Sex Female 3:01 AM EDGE STAINER MACHINE Gender Identity Not on file Sexual Orientation Not on file Last Filed Vital Signs Vital Sign Reading Time Taken Comments Blood Pressure 152/48 06/20/2024 11:15 AM CDT Pulse 65 06/20/2024 11:15 AM CDT Temperature 36.6 C (97.9 F) 11/19/2023 4:02 PM CDT Respiratory Rate 18 10/13/2023 10:31 AM CDT Oxygen Saturation 96% 06/20/2024 11:15 AM CDT Inhaled Oxygen Concentration - - Weight 79.4 kg (175 lb) 06/20/2024 11:15 AM CDT Height 162.6 cm (5' 4 ) 06/20/2024 11:15 AM CDT Body Mass Index 30.04 06/20/2024 11:15 AM CDT Plan of Treatment Scheduled Procedures Name Priority Associated Diagnoses Date/Ti me ESOPHAGOGASTRODUODENOSCOPY Open Access Acute anemia Insurance MEDICARE [place] [id number] [facility] SUPPLEMENT MEDICARE [place]ER[place] [address] [place] [id number] [facility] SUPPLEMENT Advance Directives For more information, please contact: [phone] Documents on File Type Date Recorded Patient Grinder Set Up Operator Internal Expl anation ADVANCE DIRECTIVE 04/07/2023 7:01 PM POWER OF PLANT BIOLOGY PROFESSOR-MEDICAL * Full Code (Latest Code Status on File) Date Activated Date Inactivated Comments 03/20/2023 7:03 PM 04/03/2023 5:45 PM Care Teams On Air Director Relationship Specialty Start Date End Date Micheal Rodriguez MD [address] [phone] PCP - General Internal Medicine 06/20/24
--- OUTSIDE RECORDS SUMMARY | 2024-07-05 08:58 | XMS_ITS | Clinical Summary ---
Author Organization [facility] Address [facility] [place] [address] Care Team Providers Care Splicing Technician Name Role Phone Micheal Rodriguez MD Primary Care Provider Allergies Active Allergy [...] 07/01/2023 Assessment & Plan (03/23/2024 1:34 PM EXPERIMENTAL OUTBOARD MOTORS MECHANIC): Slight srf sup to disc OD now with diffuse drusen and some atrophy OU. Continue AREDS. Pt wants to seek care closer to home. Schedule for consult at [facility] in [place]. F/u here prn. Assessment & Plan (07/01/2023 2:46 PM CDT): Stable with no signs of exudative disease on exam today. F/u in 6 months for repeat DFE and mac OCT. ANG (iron deficiency anemia) 04/10/2023 Acute upper GI bleed 03/21/2023 Assessment & Plan (03/31/2023 3:09 PM EXPERIMENTAL OUTBOARD MOTORS MECHANIC): CT A/P GI bleed protocol on admission with 2 foci of arterial enhancement and blooming on delayed images in the 2nd and 3rd portions of the duodenum compatible with active extravasation. Hgb 4.5 (baseline 11, 11/2022) from 6 on 03/16. Iron deficient on presentation to OSH, iron deficiency resolved s/p IV repletion. B12 wnl. No hypotension. Pt is Mu-ism and does not accept whole blood products. [...] 03/21/2023 Assessment & Plan (03/21/2023 2:57 AM EXPERIMENTAL OUTBOARD MOTORS MECHANIC): - Home nightly CPAP Breast cancer 03/21/2023 Assessment & Plan (03/21/2023 2:59 AM EXPERIMENTAL OUTBOARD MOTORS MECHANIC): R breast CA (2018, ER+) s/p R mastectomy, chemotherapy, and radiation now on surveillance. Was on exemestane until recently, she reports Oncology stopped it due to concern about potential adverse effects. Pulmonary embolism 03/21/2023 Assessment & Plan (03/27/2023 6:23 PM EXPERIMENTAL OUTBOARD MOTORS MECHANIC): Hospitalized at OSH 01/2023 with RSV; shortly [...] 03/21/2023 Assessment & Plan (04/01/2023 3:38 PM EXPERIMENTAL OUTBOARD MOTORS MECHANIC): Follows w/ OSH pulmonology. Mild expiratory wheezes [...] 03/21/2023 Assessment & Plan (03/21/2023 3:14 AM EXPERIMENTAL OUTBOARD MOTORS MECHANIC): - Hold home diltiazem 120 mg daily, losartan 50 mg daily pending clinical course given acute GI bleed Anxiety 03/21/2023 Assessment & Plan (03/21/2023 3:15 AM EXPERIMENTAL OUTBOARD MOTORS MECHANIC): - Home sertraline Acute anemia 03/20/2023 Assessment & Plan (04/03/2023 10:45 AM EXPERIMENTAL OUTBOARD MOTORS MECHANIC): Due to GIB. No melena since 03/24. Hgb has been on the low 5s. She is Mu-ism and does not accept whole blood products. S/p 500 IV iron x2 at OSH - Heme consulted: After risk/benefit discussion with patient and loved ones regarding increased risk of DVT/PE expansion with Epo, decision made to proceed with erythrocyte stimulating agent. Patient received Aranesp 400 mcg SQ on 03/20 and 300 mcg on 03/28. Plan is Aranesp 300 mcg qweekly - SNF unable to provide Aranesp; giving additional dose 04/03 prior to d/c. - She has a follow up appoint with Dr Pérez on 04/16/2023 at 1:30pm. - Order weekly CBC outpatient and have the results faxed to Dr Pérez at [phone] Pseudophakia of both eyes 12/31/2022 Assessment & Plan (07/01/2023 2:46 PM CDT): Stable. Observe. Assessment & Plan (01/01/2023 9:08 AM EXPERIMENTAL OUTBOARD MOTORS MECHANIC): Stable. Observe. Diastolic heart failure 09/11/2021 Assessment & Plan (03/24/2023 6:44 PM EXPERIMENTAL OUTBOARD MOTORS MECHANIC): Chart history of diastolic dysfunction, appears hypervolemic on admission with small bilateral pleural effusions and 2+ pitting edema BLEs. No S/s CHF exacerbation - Hold home Bumex 4 mg PO daily pending clinical course given acute GI bleed - TTE- Normal LV size and systolic function Left posterior capsular opacification 04/22/2019 Assessment & Plan (01/01/2023 9:10 AM EXPERIMENTAL OUTBOARD MOTORS MECHANIC): Stable. Observe. Assessment & Plan (12/25/2021 4:22 PM EXPERIMENTAL OUTBOARD MOTORS MECHANIC): Mild. Stable. observe. Assessment & Plan (06/26/2021 4:08 PM CDT): Stable. Observe. Assessment & Plan (01/24/2021 12:27 PM EXPERIMENTAL OUTBOARD MOTORS MECHANIC): Minimal impact on bcva. Observe. Visual symptoms likely due to uncorrected refractive error. Update SRx. Assessment & Plan (04/22/2019 2:56 PM EXPERIMENTAL OUTBOARD MOTORS MECHANIC): Not yet impacting BCVA. Observe. Update SRx for reading. Retinal drusen of both eyes 04/22/2019 Assessment & Plan (01/01/2023 9:09 AM EXPERIMENTAL OUTBOARD MOTORS MECHANIC): Progressive non-exudative AMD with GA OU. Recommended pt start AREDS vitamin supplements. F/u in 6 months for repeat DFE with mac OCT. Assessment & Plan (07/03/2022 4:10 PM CDT): Stable on exam today. No e/o conversion to exudative disease. Continue to follow q6mos. Assessment & Plan (12/25/2021 4:22 PM EXPERIMENTAL OUTBOARD MOTORS MECHANIC): cuticular drusen OU. Low risk of conversion to exudative disease. Repeat dfe in 6 mos. Assessment & Plan (06/26/2021 4:08 PM CDT): No active exudative disease evident on exam and OCT today. Continue to follow q6mo. Assessment & Plan (01/24/2021 12:27 PM EXPERIMENTAL OUTBOARD MOTORS MECHANIC): Stable on exam. Will recheck OCT at f/u. Assessment & Plan (04/22/2019 2:55 PM EXPERIMENTAL OUTBOARD MOTORS MECHANIC): Small hard drusen OU. Mild. Annual exam. 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 Assessment & Plan (04/22/2019 2:57 PM EXPERIMENTAL OUTBOARD MOTORS MECHANIC): Variable blur when reading likely due to ocular surface disruption/unstable tear film. Increase use of ATs before reading. Encounters Date Type Department Care Team Description 06/20/2024 11:00 AM CDT Office Visit [facility] Cardiology [address] [place] [address] Tiffanie Juarez NP Chronic diastolic heart failure (HCC) (Primary Dx); Edema, lower extremity from Last 3 Months Immunizations Immunization Administration [...] th - (Added by TW Conv) Cancer (HCC) Breast cancer Family History Medical History Relation Name Comments [...] on file Legal Sex Female 3:01 AM EXPERIMENTAL OUTBOARD MOTORS MECHANIC Gender Identity Not on file Sexual Orientation [...] of 2 - PCV) 12/15/2019 12/14/2018, 12/05/2009 Fall Risk Assessment 04/03/2024 04/03/2023 Influenza Vaccine (Season Ended) 2024 12/11/2022, 12/14/2018, 12/03/2013, Additional history exists Osteoporosis Screening-Bone Density Scan Discontinued 01/16/2020, 01/16/[address]ARE [address] & [facility] SUPPLEMENT MEDICARE COMMERCIAL GENERIC MEDICARE [place] [address] [address] & [facility] SUPPLEMENT Member Subscriber Plan / Payer (Ef fective 1980-Present) Name:Tatianna Bailey Jeevan Relation to Subscriber:Self Name:Tatianna Bailey Payer ID:[id number] Group ID:Not on file Type:COMMERCIAL Address: [place] [phone] Advance Directives For more information, please contact: [phone] Documents on File Type Date Recorded Patient Steward/Stewardess Night Expl anation ADVANCE DIRECTIVE 04/07/2023 7:01 PM POWER OF SHINGLES [employer] * Full Code (Latest Code Status on File) Date Activated Date Inactivated Comments 03/20/2023 7:03 PM 04/03/2023 5:45 PM Care Teams Splicing Technician Relationship Specialty Start Date End Date Micheal Rodriguez MD [address] [facility] [address] [place] [address] PCP - General Internal Medicine 06/20/24
--- OUTSIDE RECORDS SUMMARY | 2024-07-05 08:58 | XMS_ITS ---
Author Organization [facility] Address [address] [place] [address] Care Team Providers Care Shellfish Dredge Operator Name Role Phone Micheal Rodriguez MD Primary Care Provider Active Problems Problem Noted Date Diagnosed Date Lesion of eyelid 07/01/2023 Assessment & Plan (07/01/2023 2:45 PM CDT): Images from the original note were not included. Schedule for consult with oculoplastics for excision. 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 Continue AREDS. Pt wants to seek care closer to home. Schedule for consult at [facility] in [place]. F/u here prn. Assessment & Plan (07/01/2023 2:46 PM CDT): Stable with no signs of exudative disease on exam today. F/u in 6 months for repeat DFE and mac OCT. ANG (iron deficiency anemia) 04/10/2023 Acute upper GI bleed 03/21/2023 Assessment & Plan (03/31/2023 3:09 PM ADJUNCT PSYCHOLOGY PROFESSOR): CT A/P GI bleed protocol on admission [...] 03/21/2023 Assessment & Plan (03/21/2023 2:57 AM ADJUNCT PSYCHOLOGY PROFESSOR): - Home nightly CPAP Breast cancer 03/21/2023 Assessment & Plan (03/21/2023 2:59 AM ADJUNCT PSYCHOLOGY PROFESSOR): R breast CA (2018, ER+) s/p R mastectomy, chemotherapy, and radiation now on surveillance. Was on exemestane until recently, she reports Oncology stopped it due to concern about potential adverse effects. Pulmonary embolism 03/21/2023 Assessment & Plan (03/27/2023 6:23 PM ADJUNCT PSYCHOLOGY PROFESSOR): Hospitalized at OSH 01/2023 with RSV; shortly [...] 03/21/2023 Assessment & Plan (04/01/2023 3:38 PM ADJUNCT PSYCHOLOGY PROFESSOR): Follows w/ OSH pulmonology. Mild expiratory wheezes [...] 03/21/2023 Assessment & Plan (03/21/2023 3:14 AM ADJUNCT PSYCHOLOGY PROFESSOR): - Hold home diltiazem 120 mg daily, losartan 50 mg daily pending clinical course given acute GI bleed Anxiety 03/21/2023 Assessment & Plan (03/21/2023 3:15 AM ADJUNCT PSYCHOLOGY PROFESSOR): - Home sertraline Acute anemia 03/20/2023 Assessment & Plan (04/03/2023 10:45 AM ADJUNCT PSYCHOLOGY PROFESSOR): Due to GIB. No melena since 03/24. [...] Plan is Aranesp 300 mcg qweekly - unable to provide Aranesp; giving additional dose 04/03 prior to d/c. - She has a follow up appoint with Dr Pérez on 04/16/2023 at 1:30pm. - Order weekly CBC outpatient and have the results faxed to Dr Pérez at [phone] Pseudophakia of both eyes 12/31/2022 Assessment & Plan (07/01/2023 2:46 PM CDT): Stable. Observe. Assessment & Plan (01/01/2023 9:08 AM ADJUNCT PSYCHOLOGY PROFESSOR): Stable. Observe. Diastolic heart failure 09/11/2021 Assessment & Plan (03/24/2023 6:44 PM ADJUNCT PSYCHOLOGY PROFESSOR): Chart history of diastolic dysfunction, appears hypervolemic on admission with small bilateral pleural effusions and 2+ pitting edema BLEs. No S/s CHF exacerbation - Hold home Bumex 4 mg PO daily pending clinical course given acute GI bleed - TTE- Normal LV size and systolic function Left posterior capsular opacification 04/22/2019 Assessment & Plan (01/01/2023 9:10 AM ADJUNCT PSYCHOLOGY PROFESSOR): Stable. Observe. Assessment & Plan (12/25/2021 4:22 PM ADJUNCT PSYCHOLOGY PROFESSOR): Mild. Stable. observe. Assessment & Plan (06/26/2021 4:08 PM CDT): Stable. Observe. Assessment & Plan (01/24/2021 12:27 PM ADJUNCT PSYCHOLOGY PROFESSOR): Minimal impact on bcva. Observe. Visual symptoms likely due to uncorrected refractive error. Update SRx. Assessment & Plan (04/22/2019 2:56 PM ADJUNCT PSYCHOLOGY PROFESSOR): Not yet impacting BCVA. Observe. Update SRx for reading. Retinal drusen of both eyes 04/22/2019 Assessment & Plan (01/01/2023 9:09 AM ADJUNCT PSYCHOLOGY PROFESSOR): Progressive non-exudative AMD with GA OU. Recommended pt start AREDS vitamin supplements. F/u in 6 months for repeat DFE with mac OCT. Assessment & Plan (07/03/2022 4:10 PM CDT): Stable on exam today. No e/o conversion to exudative disease. Continue to follow q6mos. Assessment & Plan (12/25/2021 4:22 PM ADJUNCT PSYCHOLOGY PROFESSOR): cuticular drusen OU. Low risk of conversion to exudative disease. Repeat dfe in 6 mos. Assessment & Plan (06/26/2021 4:08 PM CDT): No active exudative disease evident on exam and OCT today. Continue to follow q6mo. Assessment & Plan (01/24/2021 12:27 PM ADJUNCT PSYCHOLOGY PROFESSOR): Stable on exam. Will recheck OCT at f/u. Assessment & Plan (04/22/2019 2:55 PM ADJUNCT PSYCHOLOGY PROFESSOR): Small hard drusen OU. Mild. Annual exam. 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 Assessment & Plan (04/22/2019 2:57 PM ADJUNCT PSYCHOLOGY PROFESSOR): Variable blur when reading likely due to [...]
--- OUTSIDE RECORDS SUMMARY | 2024-07-05 08:58 | XMS_ITS | Clinical Summary ---
Author Organization [facility] Address [address] [place] [address] Care Team Providers Care Biometric Fingerprinting Technician Name Role Phone Killian Domínguez MD Primary Care Provider [phone] Allergies Active Allergy Reactions Criticality Noted Date [...] 0 Active fluticasone propionate (FLONASE) 50 mcg/spray [place], Suspension nasal inhaler SPRAY 1 SPRAY INTO [...] Encounters Date Type Department Care Team Description 05/17/2024 External Device Data ST[facility] ABSTRACTION Provider, Abstract 04/27/2024 External Device Data [facility] ABSTRACTION Provider, Abstract 04/26/2024 External Device Data [facility] ABSTRACTION Provider, Abstract 04/26/2024 Orders Only [facility] Oncology and Hematology - [address] [place] [address] Chadwick Enciso MD MGUS (monoclonal gammopathy of unknown significance) (Primary Dx); Chronic anemia; 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, estrogen receptor positive (CMS/HCC) 04/21/2024 Orders Only [facility] Oncology and Hematology - [address] Chadwick Enciso MD 04/21/2024 Abstract [facility] Oncology and Hematology - [address] [place] [phone] Chadwick Enciso MD 04/12/2024 External Device Data [facility] ABSTRACTION Provider, Abstract 04/12/2024 Orders Only [facility] Oncology and Hematology - [address] [place] [phone] Chadwick Enciso MD 04/12/2024 Abstract [facility] Oncology and Hematology - Bill [address] [place] [phone] Chadwick Enciso MD 04/11/2024 Orders Only [facility] Oncology and Hematology - [address] [place] [id number] Chadwick Enciso MD 04/11/2024 Abstract [facility] Oncology and Hematology - [address] [place] [phone] Chadwick Enciso MD from Last 3 Months Family History Medical [...] on file Legal Sex Female 5:21 AM DISCOVERY GUIDE Gender Identity Not on file Sexual Orientation [...] Care Team (Late st Contact Info) Description 08/02/2024 2:45 PM CDT Office Visit [facility] Oncology and Hematology - [address] [facility] [address] [place] [address] Chadwick Enciso MD [address] [facility] [address] [place] [address] Health Maintenance Due Date Last Done Comments DTAP/TDAP/TD VACCINES (1 - Tdap) 09/07/1954 ZOSTER VACCINE (1 of 2) 09[birth year]07/1954 RSV VACCINE (60+ or ) (1 - 1-dose 75+ series) 09/07/2011 PNEUMOCOCCAL VACCINE 50+ YEA RS (3 of 3 - PCV) 12/15/2019 12/14/2018, 12/05/2009 INFLUENZA VACCINE (#1) 2023 12/14/2018 OSTEOPOROSIS SCREENING 01/15/2025 01/16/2020, 2019 Procedures Procedure Name Priority Date/Time Associated Diagnosis Comments CANCER ANTIGEN 15-3 Routine 04/08/2024 4 :14 PM DISCOVERY GUIDE COMPREHENSIVE METABOLIC PANEL Routine 04/08/2024 3:28 PM DISCOVERY GUIDE PROTEIN ELECTROPHORESIS, CSF Routine 04/08/2024 9:03 AM DISCOVERY GUIDE XR DEXA BONE DENSITY AXIAL 1 OR MORE SITES Routine 01/16/2020 Aromatase inhibitor use from Last 3 Months or Most Recently Relevant to Health Maintenance Results * CANCER ANTIGEN 15-3 (04/08/2024 4:14 PM DISCOVERY GUIDE) Blood us Chadwick Enciso MD CHEMISTRY ORDERABLES Final Resu lt * COMPREHENSIVE METABOLIC PANEL (04/08/2024 3:28 PM DISCOVERY GUIDE) Blood us Chadwick Enciso MD CHEMISTRY ORDERABLES Final Resu lt * PROTEIN ELECTROPHORESIS, CSF (04/08/2024 9:03 AM DISCOVERY GUIDE) Cerebrospinal fluid CEREBROSPINAL FLUID / Unknown us Chadwick Enciso MD BODY FLUIDS AND STOOLS Final Re sult * XR DEXA BONE DENSITY AXIAL 1 OR MORE SITES (01/16/2020) Anatomical Region Laterality Modality Other us Kym[facility] ORDERA BLES Final Result from Last 3 Months or Most Recently Relevant to Health Maintenance Insurance MEDICARE PART A AND B MEDICARE PART A AND B GENERIC PAYOR Care Teams Biometric Fingerprinting Technician Relationship Specialty Start Date End Date Killian Domínguez MD [address] [place] [phone] PCP - General Internal Medicine 07/02/18
--- OUTSIDE RECORDS SUMMARY | 2024-07-05 08:58 | XMS_ITS | Continuity of Care Document ---
Author Organization [facility] Address [address] [place] [address] Phone Care Team Providers Care Senior Engineer Name Role Phone Erica Flores Unavailable Unavailable Procedures Procedure Date Eye Exam & Treatment Refraction Eye Exam & Treatment Eye Exam & Treatment Eye Exam & Treatment Advance Directives Directive Yes / No Effective Date File Name No Information Encounters Encounter Description Practice Location Reason(s) For Visit Diagnoses Date Provider Providers Copied on Encounter [facility], [address] [place] [address] [address], [place], [place], [id number], tel:[phone] [facility] No Information 6-201 0 Sandra Garnica [address], [place], [place], [facility], . tel:[phone] [facility], [address] [place] [address] [address], [place], [place], [id number], [place] tel:[phone] [facility] No Information 7-200 9 Sandra Garnica [address] , [address], [place], [place], [facility], . tel:[phone] [facility], [address] [place] [address] [address], [place], [place], [id number], tel:[phone] [facility] No Information 8 Sandra Garnica [address] , [address], [place], [address], [place]. tel:[phone] [facility], [address], [place], [place], [id number], [place] tel:[phone] [facility] No Information 7 Sandra Maldonado. [address] , [address], [place], [address], [place]. tel:[phone] Family History Family Member Type Diagnosis Age At Onset No Information Payers Payer name Insurance type Covered democrat ID Gissell ralphgloria(s) [place] [id number] Social History Type Description Quantity Date Captured [...]
--- OUTSIDE RECORDS SUMMARY | 2024-07-05 08:59 | XMS_ITS ---
Author Name Auto Generated, Auto Generated Organization [facility] ices Address [address] [place] [address] Phone [phone] Care Team Providers Care Cdl Instructor Name Role Phone Anton Negro Unavailable [phone] Fabio Verdugo Unavailable Functional Status Mental Status Allergies and Intolerances Medications Problems Reason for Referral Past Medical History
--- OUTSIDE RECORDS SUMMARY | 2024-07-05 08:59 | XMS_ITS ---
Author Name Auto Generated, Auto Generated Organization [facility] Address [address] [place] [address] Phone [phone] Care Team Providers Care Coil Connector Name Role Phone Anton Negro Unavailable [phone] Fabio Verdugo Unavailable [phone] Functional Status No Results Mental Status No Results Allergies and Intolerances Name Onset Date Reaction Severity codeine (Allergy) ThuMar 06 17:51:00 EST 2023 lisinopril (Allergy) ThuMar 06 17:51:00 EST Medications Medication Directions Start Date End Date FeroSuL 325 mg (65 mg iron) tablet 1 tablet TABLET Oral 1 Time Daily Indication: Anemia ThuApr 08 16:00:00 EST 2023Apr 09 16:39:00 EST 2023 furosemide 40 mg tablet 1 tablet TABLET Oral 1 Time Daily Indication: Edema ThuApr 08 16:00:00 EST 2023Apr 14 01:00:00 EST 2023 docusate sodium 100 mg capsule 1 capsule CAPSULE Oral PRN 3 Times Daily Indication: Constipation ThuApr 06 11:50:00 EST 2023Apr 14 01:00:00 EST 2023 hydrOXYzine HCL 25 mg tablet 1 TABLET TABLET Oral PRN 4 Times Daily Indication: Anxiety ThuApr 06 09:00:00 EST 2023Apr 14 01:00:00 EST 2023 Med Pass 2.0 Nutritional Supplement 120 mL 120 mL 120 cc Oral 1 Time Daily Indication: For healing and maintenance ThuApr 06 19:00:00 EST 2023Apr 14 01:00:00 EST 2023 albuterol sulfate HFA 90 mcg/actuation aerosol inhaler 2 PUFFS HFA AEROSOL WITH ADAPTER (GRAM) Inhalation PRN Every 4 Hours Indication: WHEEZE OR SHORTNESS OF BREATH Fri Feb 16 01:00:00 EST 2023 Feb 27 01:00:00 EST 2023 azelastine 137 mcg (0.1 %) nasal spray aerosol 1 SPRAY AEROSOL, SPRAY WITH PUMP (ML) Intranasal - Both Nostrils PRN 2 Times Daily Indication: FOR ALLERGY SYMPOMS Fri Feb 16 01:00:00 EST 2023 Feb 27 01:00:00 EST 2023 benzonatate 100 mg capsule 1 capsule CAP RAYNE Oral PRN 3 Times Daily Indication: COUGH Fri Feb 16 16:30:00 EST 2023 Feb 27 01:00:00 EST 2023 cyanocobalamin (vit B-12) 2,000 mcg tablet 1 TABLET TABLET Oral 1 Time Daily Indication: Supplement Fri Feb 16 16:30:00 EST 2023 Feb 27 01:00:00 EST 2023 Daily Multi-Vitamin tablet 1 TABLET TABL ET Oral 1 Time Daily Indication: Supplement Fri Feb 16 16:30:00 EST 2023 Feb 27 01:00:00 EST 2023 folic acid 1 mg tablet 5 TABLETS TABLET Oral 1 Time Daily Indication: Supplement Fri Feb 16 16:30:00 EST 2023 Feb 27 01:00:00 EST 2023 Mucus DM 30 mg-600 mg tablet,extended release 1 TABLET TABLET, EXTENDED RELEASE 12 HR Oral 1 Time Daily Indication: Congestion/Cough Fri Feb 16 16:30:00 EST 2023 Feb 27 01:00:00 EST 2023 hydrOXYzine HCL 25 mg tablet 1 TABLET TABLET Oral PRN 4 Times Daily Indication: Anxiety Fri Feb 16 16:30:00 EST 2023 Mon Feb 19 12:07:00 EST 2023 ipratropium 0.5 mg-albuteroL 3 mg (2.5 mg base)/3 mL nebulization soln 3 ML AMPUL FOR NEBULIZATION (ML) Nebulization PRN 2 Times Daily Indication: Shortness of breath/Wheezing Fri Feb 16 16:30:00 EST 2023e Feb 27 01:00:00 EST 2023 pantoprazole 40 mg tablet,delayed release 1 TABLET TABLET, DELAYED RELEASE (ENTERIC COATED) Oral 2 Times Daily Indication: GI Bleed Fri Feb 16 16:30:00 EST 2023 Feb 27 01:00:00 EST 2023 ramelteon 8 mg tablet 1 TABLET TABLET Or al PRN Hour Of Sleep Indication: Insomnia Fri Feb 16 16:30:00 EST 2023 Feb 27 01:00:00 EST 2023 sertraline 50 mg tablet 3 TABLETS TABLET Oral 1 Time Daily Indication: Depression Fri Feb 16 16:30:00 EST 2023 Feb 27 01:00:00 EST 2023 budesonide-formoterol HFA 160 mcg-4.5 mcg/actuation aerosol inhaler 2 PUFFS HFA AEROSOL WITH ADAPTER (GRAM) Inhalation Every 12 Hours Indication: Asthma Fri Feb 16 16:30:00 EST 2023 Feb 01:00:00 EST 2023 Mapap (acetaminophen) 500 mg capsule 1 CAPSULE CAPSULE Oral PRN Every 6 Hours Indication: FEVER ,PAIN Fri Feb 16 16:30:00 EST 2023 Feb 01:00:00 EST 2023 bumetanide 2 mg tablet 2 tablets (4mg) T ABLET Oral 2 Times Daily Indication: CHF ThuMar 15 14:00:00 EST 2023Mar 15 16:17:00 EST 2023 bumetanide 2 mg tablet 4mg TABLET Oral 1 Time Daily Indication: CHF ThuMar 15 16:00:00 EST 2023Mar 16 01:00:00 EST 2023 bumetanide 2 mg tablet 2 tablets TABLET Oral 1 Time Daily Indication: CHF/bilateral edema CHF/bilateral edema ThuMar 15 09:00:00 EST 2023Mar 15 15:56:00 EST 2023 Ventolin HFA 90 mcg/actuation aerosol inhaler 2 puffs HFA AEROSOL WITH ADAPTER (GRAM) Inhalation PRN Every 6 Hours Indication: SOB/wheezing SOB/wheezing ThuMar 14 01:00:00 EST 2023Mar 16 01:00:00 EST 2023 metoprolol tartrate 25 mg tablet 1 tablet TABLET Oral 2 Times Daily Indication: HTN ThuMar 13 07:00:00 EST 2023Mar 16 01:00:00 EST 2023 metoprolol succinate ER 25 mg tablet,extended release 24 hr 1 TABLET TABLET, EXTENDED RELEASE 24 HR Oral 1 Time Daily Indication: HTN ThuMar 11 15:35:00 EST 2023Mar 11 15:39:00 EST 2023 metoprolol succinate ER 25 mg tablet,extended release 24 hr 1 TABLET TABLET, EXTENDED RELEASE 24 HR Oral 2 Times Daily Indication: HTN ThuMar 11 15:38:00 EST 2023Mar 12 10:37:00 EST 2023 Miralax 17 gram/dose oral powder 17 grams POWDER (GRAM) Oral PRN 1 Time Daily Indication: Constipation ThuMar 09 18:00:00 EST 2023Mar 16 01:00:00 EST 2023 Eliquis 5 mg tablet 2 TABLETS TABLET Ora l Every 12 Hours for 7 Days Indication: anticoagulant 2 TABLETS= 10MG ThuMar 06 17:30:00 EST 2023Mar 13 17:29:00 EST 2023 Eliquis 5 mg tablet 1 TABLET TABLET Oral 2 Times Daily Indication: anticoagulant ThuMar 13 01:00:00 EST 2023Mar 16 01:00:00 EST 2023 dilTIAZem ER 120 mg tablet,extended release 24 hr 1 TABLET TABLET, EXTENDED RELEASE 24 HR Oral 1 Time Daily Indication: HTN ThuMar 06 17:30:00 EST 2023Mar 16 01:00:00 EST 2023 albuterol sulfate HFA 90 mcg/actuation aerosol inhaler 2 PUFFS HFA AEROSOL WITH ADAPTER (GRAM) Inhalation PRN Every 4 Hours Indication: SHORTNESS OF BREATH/WHEEZING ThuMar 06 17:30:00 EST 2023Mar 16 01:00:00 EST 2023 fluticasone propionate 50 mcg/actuation nasal spray,suspension 2 SPRAYS SPRAY, SUSPENSION Intranasal 2 Times Daily Indication: nasal spray ThuMar 06 17:30:00 EST 2023Mar 16 01:00:00 EST 2023 metoprolol succinate ER 50 mg tablet,extended release 24 hr 1 TABLET TABLET, EXTENDED RELEASE 24 HR Oral 1 Time Daily Indication: HTN ThuMar 06 17:30:00 EST 2023Mar 11 15:37:00 EST 2023 ipratropium 0.5 mg-albuteroL 3 mg (2.5 mg base)/3 mL nebulization soln 3ML AMPUL FOR NEBULIZATION (ML) Inhalation PRN Every 6 Hours Indication: SHORTNESS OF BREATH/WHEEZING ThuMar 06 17:30:00 EST 2023Mar 16 01:00:00 EST 2023 budesonide-formoterol HFA 160 mcg-4.5 mcg/actuation aerosol inhaler 2 PUFFS HFA AEROSOL WITH ADAPTER (GRAM) Inhalation Every 12 Hours Indication: inhalation ThuMar 06 17:30:00 EST 2023Mar 16 01:00:00 EST 2023 bumetanide 2 mg tablet 1 TABLET TABLET O ral 1 Time Daily Indication: Diuretic ThuMar 06 17:30:00 EST 2023Mar 14 19:58:00 EST 2023 ferrous sulfate 324 mg (65 mg iron) tablet,delayed release 1 TABLET TABLET, DELAYED RELEASE (ENTERIC COATED) Oral Every 2 Days Indication: supplement TAKE ON AN EMPTY STOMACH ThuMar 06 17:30:00 EST 2023Mar 16 01:00:00 EST 2023 azelastine 137 mcg (0.1 %) nasal spray aerosol 2 SPRAYS AEROSOL, SPRAY WITH PUMP (ML) Intranasal - Both Nostrils PRN 2 Times Daily Indication: ALLERGY SYMPTOMS ThuMar 06 17:30:00 EST 2023Mar 16 01:00:00 EST 2023 exemestane 25 mg tablet 1 TABLET TABLET Oral 1 Time Daily Indication: breast cancer ThuMar 06 17:30:00 EST 2023Mar 16 01:00:00 EST 2023 losartan 50 mg tablet 1 TABLET TABLET Or al 1 Time Daily Indication: HTN ThuMar 06 17:30:00 EST 2023Mar 16 01:00:00 EST 2023 sertraline 50 mg tablet 3 TABLETS TABLET Oral 1 Time Daily Indication: antidepressant 3 TABLETS= 150MG ThuMar 06 17:30:00 EST 2023Mar 16 01:00:00 EST 2023 [place] Nasal 0.65 % spray aerosol 1 SPRAY AEROSOL, SPRAY (ML) Intranasal PRN Every 6 Hours Indication: CONGESTION ThuMar 06 17:30:00 EST 2023Mar 16 01:00:00 EST 2023 amLODIPine 10 mg tablet 1 TABLET TABLET Oral 1 Time Daily Indication: HTN ThuMar 06 17:30:00 EST 2023Mar 11 15:36:00 EST 2023 polyethylene glycoL 3350 17 gram/dose oral powder 17GM POWDER (GRAM) Oral PRN 1 Time Daily Indication: CONSTIPATION ThuMar 06 17:30:00 EST 2023Mar 16 01:00:00 EST 2023 ALPRAZolam 0.5 mg tablet 1 TABLET TABLET Oral PRN 1 Time Daily Indication: ANXIETY ThuMar 06 17:30:00 EST 2023Mar 16 01:00:00 EST 2023 melatonin 5 mg tablet 1 TABLET TABLET Or al PRN Indication: INSOMNIA ThuMar 06 17:30:00 EST 2023Mar 16 01:00:00 EST 2023 acetaminophen 325 mg tablet 325 mg TABLET Oral PRN Every 6 Hours Indication: pain As needed for pain/elevated temperature. ThuMar 06 01:00:00 EST 2023Mar 16 01:00:00 EST 2023 TubersoL 5 tub. unit/0.1 mL intradermal injection solution 0.1 ml VIAL (ML) Intradermal 1 Time Weekly for 2 Weeks Indication: TB 1st injection on admission, then one week after. Read between 48 and 72 hours ThuMar 06 01:00:00 EST 2023Mar 16 01:00:00 EST 2023 TubersoL 5 tub. unit/0.1 mL intradermal injection solution Read Results VIAL (ML) Other 1 Time Weekly for 2 Weeks Indication: TB Read results between 48-72 hours after 1st and 2nd (1 week apart). If positive do chest x-ray. ThuMar 06 01:00:00 EST 2023Mar 16 01:00:00 EST 2023 Problems Active Concerns * Chronic obstructive pulmonary disease, unspecified* Code: * Start Date: ThuMar 06 00:00:00 EST 2023 * End Date: * Text: * Personal history of malignant neoplasm of breast* Code: * Start Date: ThuMar 06 00:00:00 EST 2023 * End Date: * Text: * Acquired absence of right breast and nipple* Code: * Start Date: ThuMar 06 00:00:00 EST 2023 * End Date: * Text: * Estrogen receptor positive status [ER+]* Code: * Start Date: ThuMar 06 00:00:00 EST 2023 * End Date: * Text: * Iron deficiency anemia secondary to blood loss (chronic)* Code: * Start Date: ThuMar 06 00:00:00 EST 2023 * End Date: * Text: * Acute and chronic respiratory failure with hypoxia* Code: * Start Date: ThuMar 06 00:00:00 EST 2023 * End Date: * Text: * Chronic obstructive pulmonary disease with (acute) exacerbation* Code: * Start Date: ThuMar 06 00:00:00 EST 2023 * End Date: * Text: * Hypo-osmolality and hyponatremia* Code: * Start Date: ThuMar 06 00:00:00 EST 2023 * End Date: * Text: * Obstructive sleep apnea (adult) (pediatric)* Code: * Start Date: ThuMar 06 00:00:00 EST 2023 * End Date: * Text: * Venous insufficiency (chronic) (peripheral)* Code: * Start Date: ThuMar 06 00:00:00 EST 2023 * End Date: * Text: * Unspecified asthma with (acute) exacerbation* Code: * Start Date: ThuMar 06 00:00:00 EST 2023 * End Date: * Text: * 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* Code: * Start Date: ThuMar 06 00:00:00 EST 2023 * End Date: * Text: * Anxiety disorder, unspecified* Code: * Start Date: ThuMar 06 00:00:00 EST 2023 * End Date: * Text: * Other pulmonary embolism without acute cor pulmonale* Code: * Start Date: ThuMar 06 00:00:00 EST 2023 * End Date: * Text: * Pleural effusion, not elsewhere classified* Code: * Start Date: ThuMar 06 00:00:00 EST 2023 * End Date: * Text: * care home (current) use of anticoagulants* Code: * Start Date: ThuMar 06 00:00:00 EST 2023 * End Date: * Text: * Chronic diastolic (congestive) heart failure* Code: * Start Date: ThuMar 06 00:00:00 EST 2023 * End Date: * Text: * Rheumatic mitral insufficiency* Code: * Start Date: ThuMar 06 00:00:00 EST 2023 * End Date: * Text: * Acute embolism and thrombosis of unspecified deep veins of lower extremity, bilateral* Code: * Start Date: ThuMar 06 00:00:00 EST 2023 * End Date: * Text: * Gastrointestinal hemorrhage, unspecified* Code: * Start Date: ThuApr 03 00:00:00 EST 2023 * End Date: * Text: * Stress incontinence (female) (male)* Code: * Start Date: ThuApr 03 00:00:00 EST 2023 * End Date: * Text: * Procedure and treatment not carried out because of patient's decision for reasons of belief and group pressure* Code: * Start Date: ThuApr 03 00:00:00 EST 2023 * End Date: * Text: * Acute posthemorrhagic anemia* Code: * Start Date: ThuApr 03 00:00:00 EST 2023 * End Date: * Text: * Chronic kidney disease, stage 3 unspecified* Code: * Start Date: ThuApr 03 00:00:00 EST 2023 * End Date: * Text: * Hypertensive heart and chronic kidney disease with heart failure and stage 1 through stage 4 chronic kidney disease, or unspecified chronic kidney disease * Code: * Start Date: ThuApr 03 00:00:00 EST 2023 * End Date: * Text: Reason for Referral Past Medical History Resolved Concerns * Problem Other ill-defined heart diseases* Code: * Start Date: ThuMar 06 00:00:00 EST 2023 * End Date: ThuMar 11 00:00:00 EST 2023 * Problem Essential (primary) hypertension* Code: * Start Date: ThuMar 06 00:00:00 EST 2023 * End Date: ThuMar 11 00:00:00 EST 2023 * Problem Hypertensive heart disease with heart failure* Code: * Start Date: ThuMar 06 00:00:00 EST 2023 * End Date: ThuApr 10 00:00:00 EST 2023 * Problem Unspecified asthma, uncomplicated* Code: * Start Date: ThuApr 03 00:00:00 EST 2023 * End Date: ThuApr 10 00:00:00 EST 2023 * Problem Chronic embolism and thrombosis of unspecified deep veins of left lower extremity* Code: * Start Date: ThuApr 03 00:00:00 EST 2023 * End Date: ThuApr 10 00:00:00 EST 2023 * Problem Personal history of pulmonary embolism* Code: * Start Date: ThuApr 03 00:00:00 EST 2023 * End Date: ThuApr 10 00:00:00 EST 2023
--- OUTSIDE RECORDS SUMMARY | 2024-07-05 08:59 | XMS_ITS | Data Portability ---
Author Organization [place] [facility], [facility] Address [address] [facility] [address] [place] [address] Assessment No assessment recorded. Plan of Treatment Reminders Order Date Submit Date Provider Last Modified By Organization Details Last Modified Time Details Appointments Follow Up 15 2024 09:30A M Micheal Rodriguez MD Not available Not available Not available Lab BMP, serum or plasma 2024 025 [facility], [address] [place] [address], [address], 05/04/2024 04:01:36 Referral None recorded. Procedures None recorded. Surgeries None recorded. Imaging None recorded. Medication Orders bumetanid e 1 mg tablet 2024 025 [place] [id number] 7 [id number] In [facility], [address] [place], [address], 04/27/2024 12:42:36 bumetanid e 1 mg tablet 2023 024 JAN [id number] In [facility], [address] [place], [address], 01/26/2024 16:39:45 sertralin e 100 mg tablet 2023 024 [email or web address] 7 [facility] [id number] In [facility], [address] [place], [address], 04/27/2024 12:32:43 Patient TargetsNo targets recorded. Patient Instructions Encounter Date Encounter Id Patient Instructions Last Modified By Organization Details Last Modified Time 01/26/2024 [id number] learning about asthma [email or web address] Not available 01/26/2024 18:33:46 sleep apnea: car e instructions [email or web address] Not available 01/26/2024 18:33:46 learning about mood disorders Not available 01/26/2024 16:45:10 iron deficiency anemia: care instructions [email or web address] Not available 01/26/2024 18:33:46 I spent a total of _45 minutes (excluding separately reportable procedure time ) in care of this patient. [email or web address] Not available 01/26/2024 16:40:28 04/27/2024 [id number] learning about asthma [email or web address] Not available 04/27/2024 12:42:36 sleep apnea: car e instructions [email or web address] Not available 04/27/2024 12:42:36 learning about mood disorders [email or web address] Not available 04/27/2024 12:42:36 iron deficiency anemia: care instructions [email or web address] Not available 04/27/2024 12:42:36 I spent a total of ___43__ minutes (excluding separately reportable procedure time ) in care of this patient. [email or web address] Not available 04/27/2024 12:41:17 Reason for Referral None Reported. Problems Name Problem SNOMED Code Status Onset Date Resolution Date Notes Provider Name and Address Organization Details Recorded Time Chronic diastolic heart failure 109776914 Active 2023 Micheal Rodriguez MD [address] [facility] [address], [place], [address] , [facility] 16:38:50 Depressive disorder 35335338 Active 2023 Micheal Rodriguez MD [address] [facility] [address], [place], [address], [facility] 16:43:10 Asthma 369672952 Active 2023 Micheal Rodriguez MD [address] [facility] [address], [place], [address] , [facility] 12/10/202 4 18:20:40 Obstructive sleep apnea syndrome 15741487 Active 2023 Micheal Rodriguez MD [address], [place], [address], [facility] 4 18:21:15 Chronic rhinosinusi tis 691945470 Active 2023 Micheal Rodriguez MD [address], [place], [address], [facility] 4 18:21:56 Iron deficiency anemia 16205480 Active 2023 Micheal Rodriguez MD [address], [place], [address], [facility] 4 18:22:47 Adenomatous polyp of colon 769552273 Active 2023 Micheal Rodriguez MD [address], [place], [address], [facility] 4 18:27:15 Bilateral osteoarthri tis of knees 9128992998060 07 Active 2023 Micheal Rodriguez MD [address], [place], [address], [facility] 4 18:27:21 Acute respiratory failure 90311923 Active 2024 [email or web address] 12:12:05 Acute hypoxemic respiratory failure 227677331 Active 2024 Micheal Rodriguez MD [address], [place], [address], [facility] 5 12:31:27 Influenza caused by Influenza A virus 313437103 Active 2024 Micheal Rodriguez MD [address], [place], [address], [facility] 5 12:31:32 Acute severe exacerbatio n of asthma 315710633 Active 2024 Micheal Rodriguez MD [address] [facility] [address], [place], [address] , [facility] 12:33:27 Problem Notes None recorded. Medical Equipment None Reported. Allergies Allergen ID Allergen Name Allergen Category Reaction Reaction Severity Criticality Documentation Date Start Date Code Code System Note Provider Name and Address Organization Details Recorded Time 2463 codeine medicatio n hives Not available Not available 04/27/20242018 2670 RxNorm Ansley Thayer null, [facility] 12:11:59 Medications Name Sig Start Date Stop Date Status Note LastModified by Organization Details LastModified Time prednisone 10 mg tablet PLEASE SEE ATTACHED FOR DETAILED DIRECTION S active Not Available Not Available No t Available doxycycline hyclate 100 mg capsule TAKE 1 CAPSULE BY MOUTH TWICE A DAY 01/25 completed Not Available Not Available Not Available bumetanide 2 mg tablet TAKE ONE-HALF TABLET BY MOUTH DAILY 01/25 completed Not Available Not Available Not Available azithromyci n 250 mg tablet 01/25 completed Not Available Not Available Not Available sertraline 100 mg tablet Take 100 mg by oral route. 2024 active Not Available Not Available Not Avai lable prednisone 5 mg tablet TAKE 2 TABLETS DAYS 1-4, TAKE 1 TABLET DAYS 5-7, TAKE IN MORNING 01/25 completed Not Available Not Available Not Available cyanocobala min (vit B-12) 1,000 mcg tablet TAKE 2 TABLETS BY MOUTH ONCE DAILY 01/25 completed Not Available Not Available Not Available acetaminoph en 500 mg tablet 500 mg every 6 hours by oral route. active Not Available Not Available No t Available alprazolam 0.25 mg tablet active Not Available Not Available Not Available exemestane 25 mg tablet TAKE 1 TABLET (25 MG) BY MOUTH DAILY AFTER BREAKFAST 04/27 completed Not Available Not Available Not Available benzonatate 100 mg capsule 100 mg 3 times a day by oral route. 04/25 completed Not Available Not Available Not Available pantoprazol e 40 mg tablet,bladimir yed release 40 mg by oral route. active Not Available Not Available No t Available docusate sodium 100 mg capsule TAKE 1 CAPSULE BY MOUTH 3 TIMES DAILY NEEDED FOR CONSTIPAT ION active Not Available Not Available No t Available bumetanide 1 mg tablet Take 2 tablets every day by oral route. 2024 active Not Available Not Available Not Avai [...] 25 mg tablet,exte nded release 24 hr 50 mg by oral route. active Not Available Not Available No t Available azelastine 137 mcg (0.1 %) nasal spray SPRAY 1 SPRAY IN EACH NOSTRIL EVERY 12 HOURS active Not Available Not Available No t Available sertraline 50 mg tablet TAKE 3 TABLETS BY MOUTH DAILY 04/27 completed Not Available Not Available Not Available ipratropium bromide 21 mcg (0.03 %) [...] 4 98.4 [degF] 162.56 cm 29 kg/m2 41704.1 1 g 65 /min 22 /min 95 % 95 % 140 mm[Hg] 72 mm[Hg] [facility] 4 15:43:35 Date Recorded Body height Body temperature Body mass index (BMI) Body weight Heart rate Respiratory rate Oxygen saturation Oxygen saturation in Arterial blood by Pulse oximetry Systolic blood pressure Diastolic blood pressure Provider Name and Address Organization Details Last Updated DateTime 5 162.56 cm 98.1 [degF] 28.5 kg/m2 61445.3 3 g 65 /min 22 /min 92 % 92 % 138 mm[Hg] 60 mm[Hg] [facility] 5 12:11:32 Social History None recorded. Functional Status None recorded. Mental Status None recorded. Family History Nothing Reported Notes:father-heart disease, stroke mother-lung cancer sister-lung cancer, brain cancer Medical History No medical history recorded. Gynecological HistoryNo gynecological history recorded. Obstetrics History GPAL:G 0 P 0 0 0 0 Immunizations Vaccine Type Date Status Note Provider Nam e and Address Organization Details Recorded Time Influenza, adjuvanted, trivalent, PF 9 completed Micheal Rodriguez MD [address] [facility] [address], [place], [address], [facility] 04/27/2024 12:39:14 Influenza, high-dose, quadrivalent, PF 0 completed Micheal Rodriguez MD [address] [facility] [address], [place], [address], [facility] 04/27/2024 12:39:14 Influenza, adjuvanted, quadrivalent, PF 2 completed Micheal Rodriguez MD [address] [facility] [address], [place], [address], [facility] 04/27/2024 12:39:14 COVID-19, mRNA, LNP-S, PF, 100 mcg/0.5mL dose or 50 mcg/0.25mL dose 1 completed Micheal Rodriguez MD [address] [facility] [address], [place], [address], [facility] 04/27/2024 12:39:14 COVID-19, mRNA, LNP-S, PF, 100 mcg/0.5mL dose or 50 mcg/0.25mL dose 1 completed Micheal Rodriguez MD [address] [facility] [address], [place], [address], [facility] 04/27/2024 12:39:14 COVID-19, mRNA, LNP-S, PF, 100 mcg/0.5mL dose or 50 mcg/0.25mL dose 2 completed Micheal Rodriguez MD [address] [facility] [address], [place], [address], [facility] 04/27/2024 12:39:14 COVID-19, mRNA, LNP-S, PF, 100 mcg/0.5mL dose or 50 mcg/0.25mL dose 1 completed MD Damian Franklin[address] [facility] [address], [place], [address], [facility] 04/27/2024 12:39:14 COVID-19, mRNA, LNP-S, bivalent, PF, 50 mcg/0.5 mL or 25mcg/0.25 mL dose 2 completed MD Damian Franklin[address] [facility] [address], [place], [address], [facility] 04/27/2024 12:39:14 COVID-19, mRNA, LNP-S, PF, 50 mcg/0.5 mL 3 completed MD Damian Franklin[address] [facility] [address], [place], [address], [facility] 04/27/2024 12:39:14 pneumococcal polysaccharide PPV23 9 completed MD Damian Franklin[address] [facility] [address], [place], [address], [facility] 04/27/2024 12:39:14 influenza, unspecified formulation 2 completed Micheal Rodriguez MD [address] [facility] [address], [place], [address], [facility] 04/27/2024 12:39:14 influenza, unspecified formulation 4 completed Micheal Rodriguez MD [address] [facility] [address], [place], [address], [facility] 04/27/2024 12:39:14 influenza, unspecified formulation 3 completed Micheal Rodriguez MD [address] [facility] [address], [place], [address], [facility] 04/27/2024 12:39:15 pneumococcal, unspecified formulation 0 completed Micheal Rodriguez MD [address] [facility] [address], [place], [address], [facility] 04/27/2024 12:39:15 influenza, split (incl. purified surface antigen) 7 completed Micheal Rodriguez MD [address] [facility] [address], [place], [address], [facility] 04/27/2024 12:39:15 Past Encounters Encounter ID Performer Location Encounter Start Date Encounter Closed Date Diagnosis/Indication Diagnosis SNOMED-CT Code Diagnosis ICD10 Code Diagnosis Note [id number] Micheal Rodriguez MD [facility] [address] [facility] [address] [place] [address] 01/26/2024 15:21:07 01/26/2024 16:49:37 Chronic diastolic heart failure 661696564 I50.32 Echo 03/11:ef 60-65Perce ntMild aortic valve sclerosis. Trace TR. Grade 1 diastolic dysfunctio n.Noncompl iant with BumexDiscu ssed fluid restrictio nContinue Bumex 1 mg twice daily Depressive disorder 2822 3846 F32.A on sertraline .will increase to 200 mg dailyon alprazolam prn which was given in the hospital Asthma 926085061 J45.[address] Lafleur symbicort and albuterol prndiscuss ed switching to treleg.she will discuss with dr. Oseguera Obstructiv e sleep apnea syndrome 11407165 G47.[address] Oseguera Chronic rhinosinusitis 627743973 J31.0 Seen ENTOn Flonase and Astelin twice a dayIpratro piumGoing to see andreasugh ENT Iron defic iency anemia 31866385 D50.9 Severe anemia February 2023 with GI bleed due to anticoagul ationRecei deed[place] iron infusion in the pastFollow s with hematologi st History of malignant neoplasm of breast 607530123 Z85.3 History of breast cancer in 2018Status post right mastectomy On examestane History of thromboembolism 191076779 Z86.718 hx of Venous thrombossB ilateral lower extremity DVT Februaryepeat venous duplex 10/09-PE 01/2023was on anticoagul ation but compllicat ed with gi bleed and hence now off History of gastrointestinal bleed 917672773 Z87.19 History of GI bleed February 2023 with severe anemia down to 4Off and do coagulatio n Adenomatou s polyp of colon 594467376 D12.6 Colonoscop y 04/10: Tubular adenoma ascending colon and cecalSees Dr. Cochran Bilateral osteoarthritis of knees 2461008696 44513 M17.0 Preventive procedure 169 811472 Z29.9 Mammogram 06/09Negati veColonosc opy 04/10: Tubular adenoma ascending colon and cecum sees Dr. Alvarez one [id number]/ 2020: Osteopenia [id number] Micheal Rodriguez MD [facility] [address] [place] [address] 04/27/2024 11:48:39 04/27/2024 12:49:57 Post-discharge follow-up [id number] Z09 Admission Date: 04/12/2024D ischarge Date: 04/17/2024Di agnosis: resp failure, influenza A, asthma exacerbati onmedicati ons reconcille d and reviewed with the patient Acute hypo xemic respiratory failure 766793930 J96.01 neeing bipap 2/25now offalso needed oxygen suppnow off Influenza caused by Influenza A virus 959399434 J09.X2 treated with tamiflu and completed treatment Acute corey re exacerbation of asthma 268066033 J45.901 resovled now Chronic di astolic heart failure 299280260 I50.32 Echo 03/11:ef 60-65Perce ntMild aortic valve sclerosis. Trace TR. Grade 1 diastolic dysfunctio n.Noncompl iant with BumexDiscu ssed fluid restrictio nContinue Bumex 1 mg twice daily Depressive disorder 3548 9007 F32.A on sertraline .will increase to 200 mg daily now back down to 100 mg dailyon alprazolam prn which was given in the hospital Asthma 913461127 J45.[address] Lafleur symbicort and albuterol prndiscuss ed switching to treleg.she will discuss with dr. Oseguera next month Obstructiv e sleep apnea syndrome 24138994 G47.[address] Oseguera Chronic rhinosinusitis 752564777 J31.0 Seen ENTOn Flonase and Astelin twice a daily ipratropiu mGoing to see slu ENT Iron defic iency anemia 19497898 D50.9 Severe anemia February 2023 with GI bleed due to anticoagul ationRecei [place] iron infusion in the pastFollow s with hematologi st History of malignant neoplasm of breast 725208355 Z85.3 History of breast cancer in 2018Status post right mastectomy On examestane which she completed 2023 History of thromboembolism 993172743 Z86.718 hx of Venous thrombossB ilateral lower extremity DVT February4Repeat venous duplex 10/09-PE 01/2023was on anticoagul ation but complicate d with gi bleed and hence now off History of gastrointestinal bleed 200969457 Z87.19 History of GI bleed February 2023 with severe anemia down to 4Off anticoagul ation Adenomatou s polyp of colon 187896130 D12.6 Colonoscop y 04/10: Tubular adenoma ascending colon and cecalSees Dr. Cochran Bilateral osteoarthritis of knees 0896233956 48031 M17.0 Preventive procedure 169 018879 Z29.9 Mammogram 06/09Negati veColonosc opy 2/23: Tubular adenoma ascending colon and cecum sees Dr. Alvarez one 2019: Osteopenia Health Concerns Section Related Observation LastModified by Organization Detai ls LastModified Time None Recorded Concern Status LastModified by Organization Details LastModified Time None Recorded Advance Directives Directive None Recorded Payers Encounter Date Sequence Insurance Name Policy Number Policy Avalos Covered Member ID Avalos Member ID Guarantor Name 01/26/2024 1 [place] Tatianna Chew [place] [id number] Tatianna J [place] 01/26/2024 2 EMPLOYERS AND [employer] [facility] 520 Tatianna [place] [id number] Tatianna Chew [place] 04/27/2024 1 [place] Tatianna J [place] [id number] Tatianna Jeevan [place] 04/27/2024 2 EMPLOYERS AND [employer] [facility] 520 Tatianna [place] [id number] Tatianna Chew [place] Notes Date Note Type Note Provider Name and Address Organization Details Recorded Time 01/26/2024 text/html Pt here to establish care. Her primary physician recently relocated. Pt struggling with depression since loosing spouse on September 17 2023. Pt is currently living alone. Pt sees qualification engineer Lien Preston for asthma. C/O shortness of breath an wheezing daily. Swelling in ankles and feet present for numerous years. Completed chemo and radiation in 2019 for after mastectomy. States she received iron infusions regularly after being diagnosis with stomach bleed in Feb 2023. Micheal Rodriguez MD [address] [facility] [address], [place], [address], [facility] 01/26/2024 18:33:56 04/27/2024 text/html Pt here for hospital follow up. Pt was admitted to [facility] in [place] on 04/12/2024 and discharged on 04/17/2024. DX Flu A, cough. Temaflu was given. Pt sent home on Prednisone- 2 doses left and Tesson Pearls for cough. Pt states she is still feeling fatigue, shortness of breath and coughing with thick white occasional yellow drainage. Denies fever, nausea or vomiting. Edema in feet and lower legs decreased in hospital and starting to increase since she has returned home. States she elevates them at night. Micheal Rodriguez MD [address], [place], [address], [facility] 04/27/2024 12:47:26 OBGyn Episode No OBEpisode recorded.
--- OUTSIDE RECORDS SUMMARY | 2024-07-05 08:59 | XMS_ITS | Clinical Summary ---
Author Organization [facility] Address [address] [place] [address] Care Team Providers Care Neurosurgical Nurse Name Role Phone Micheal Rodriguez MD Primary Care Provider [phone] Source Comments [facility],non-owned Affiliates and Associated Physician Practices is amultiple site organization consisting of ambulatory clinics and hospital sitesin [place], [place], [place] and [place]. This disclosure is being madepursuant to the Care Everywhere program and may not contain all information available regarding this patient. Last updated 17.[employer] [facility] Allergies Active Allergy Reactions Criticality Noted Date Comments Codeine Urticaria High 02/26/2018 Lisinopril Urticaria Medium 03/20/2023 Medications * Be aware that medications may not be up to date on this document. Alwaysverify current medications with the patient. sertraline (Zoloft) 50 MG tablet Take 3 (three) tablets by mouth once daily Active metoprolol succinate XL 24hr (Toprol XL) 25 MG tablet Take 2 (two) tablets by mouth once daily Active bumetanide (Bumex) 1 MG tablet Take 1 (one) tablet by mouth 2 times daily 01/27/2024 Active budesonide-form oterol (Symbicort) 160-4.5 MCG/ACT inhaler Inhale 2 (two) puffs by mouth 2 times daily 02/18/2024 Active ferrous gluconate 324 (38 Fe) MG tablet Take 1 (one) tablet by mouth once daily Active albuterol HFA (Proventil; Ventolin; Proair) 108 (90 Base) MCG/ACT inhaler Inhale 2 (two) puffs by mouth every 6 hours as needed Active azelastine (Astelin) 0.1 % nasal spray Isaban 1 (one) spray into each nostril 2 times daily 90 mL 4 03/14/2024 Active Active Problems No known active problems Encounters Date Type Department Care Team Description 04/19/2024 Travel from Last 3 Months Immunizations Immunization Administration Dates Next Due INFLUENZA VACCINE 12/11/2022, 4,12/11/2012,2011 INFLUENZA VACCINE, ADJUVANTE D, TRIV. 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 Gender Identity Not on file Sexual Orientation Not on file Last Filed Vital Signs Vital Sign Reading Time Taken Comments Blood Pressure 178/80 03/14/2024 10:22 AM 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 Pulse 65 03/14/2024 10:22 AM 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 Temperature - - Respiratory Rate - - Oxygen Saturation - - Inhaled Oxygen Concentration - - Weight 76.2 kg (168 lb) 03/14/2024 10:22 AM 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 Height 162.6 cm (5' 4 ) 03/14/2024 10:22 AM 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 Body Mass Index 28.84 03/14/2024 10:22 AM 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 Plan of Treatment Health Maintenance Due Date Last Done Comments MEDICARE AWV 12 MONTHS 1936 DTAP/TDAP/TD VACCINES (1 - Tdap) 09/07/1955 ZOSTER VACCINE (1 of 2) 1986 Respiratory Syncytial Virus (RSV) Vaccine Pt: or over 60 yrs (1 - 1-dose 75+ series) 09/07/2011 PNEUMOCOCCAL VACCINE 50+ (2 of 2 - PCV) 12/15/2019 12/14/2018, 12/05/2009 COVID-19 VACCINE (1 - 2023- season) 2023 DEPRESSION SCREENING 02/17/2024 INFLUENZA VACCINE (Season Ended) 2024 12/11/2022, 12/14/2018, 12/03/2013, Additional history exists BONE DENSITY TESTING Completed 01/16/2020 HEPATITIS B VACCINE Aged Out No longe r eligible based on patient's age to complete this topic HIB VACCINE Aged Out No longer eligi ble based on patient's age to complete this topic HPV VACCINE Aged Out No longer eligi ble based on patient's age to complete this topic MENINGOCOCCAL (Group B) VACCINE SHARED DECISION-MAKING Aged Out No longer eligible based on patient's age to complete this topic MENINGOCOCCAL GROUPS A/C/Y/W VACCINE Aged Out No longer eligible based on patient's age to complete this topic Insurance MEDICARE MEDICARE MEDICARE SUPPLEMENT PAYOR GENERIC Care Teams Neurosurgical Nurse Relationship Specialty Start Date End Date Micheal Rodriguez MD [address] [facility] [address] [place] [address] PCP - General Internal Medicine 03/14/24
--- OUTSIDE RECORDS SUMMARY | 2024-07-05 08:59 | XMS_ITS | Clinical Summary ---
Author Organization [facility] Address [facility] [place] [address] Care Team Providers Care Underbaster Name Role Phone Micheal Rodriguez MD Primary Care Provider [phone] Allergies Active Allergy Reactions Criticality Noted Date Comments Codeine Hives High 02/26/2018 Lisinopril Hives Medium 03/20/2023 Medications bumetanide (BUMEX) 1 MG tablet Take 1 tablet (1 mg total) by mouth daily. Active pantoprazole EC (PROTONIX) 40 MG tablet Take 1 tablet (40 mg total) by mouth daily. Active budesonide-form oterol (SYMBICORT) 160-4.5 MCG/ACT inhaler Inhale 2 puffs into the lungs 2 (two) times daily. Active metoprolol succinate ER (TOPROL-XL) 25 MG 24 hr tablet Take 2 tablets (50 mg total) by mouth daily. Active sertraline (ZOLOFT) 100 MG tablet Take 1 tablet (100 mg total) by mouth 2 (two) times a day. Active acetaminophen (TYLENOL) 500 MG tablet Take 1 tablet (500 mg total) by mouth every 6 (six) hours as needed for Pain. Active Active Problems Problem Noted Date Diagnosed Date Acute respiratory failure ([facility]) 03/20 Encounters Date Type Department Care Team Description 05/02/2024 Telephone [facility] Med/Surg [address] [place] [address] Calli Wayne, RN Follow Up Call (Pt stated that she received wonderful care and has been telling everyone ) 04/12/2024 7:12 PM CURTAIN FRAMER - 04/17/2024 1:54 PM CURTAIN FRAMER Hospital Encounter [facility] Med/Surg [address] [place] [id number] Jason Dumont MD Ojulari, Adebunmi, MD Daniels, Darcy L, ENTRY SPECIALIST Nacho, Scarlet R, SOFT WORK CIGAR MACHINE OPERATOR Cough; Shortness Of Breath Discharge Disposition: Home with Home Health Care 04/12/2024 Travel from Last 3 Months Social History Tobacco Use Types Packs/Day Years Used Date Smoking Tobacco: Former Cigarettes Tobacco Cessation:Counseling Given: Not Answered B1300 Health Literacy Answer Date Recor ded How often do you need to hav e someone help you when you read instructions, pamphlets, or other written material from your doctor or pharmacy? Rarely 04/12/2024 [facility] Utilities Answer Date Recorded In the past 12 months has e [employer], gas, oil, or water [employer] threatened to shut off services in your home? No 04/12/2024 Humiliation, Afraid, Rape, and Kick questionnair e Answer Date Recorded Within the last year, have y ou been afraid of your partner or ex-partner? No 04/12/2024 Within the last year, have y ou been humiliated or emotionally abused in other ways by your partner or ex-partner? No Within the last year, have y ou been kicked, hit, slapped, or otherwise physically hurt by your partner or ex-partner? No 04/12/2024 Within the last year, have y ou been raped or forced to have any kind of sexual activity by your partner or ex-partner? No 04/12/2024 Social Connection and Isolat ion Panel [NHANES] Answer Date Recorded In a typical week, how many times do you talk on the phone with family, friends, or neighbors? More than three times a week 04/12/2024 How often do you get togethe r with friends or relatives? More than three times a week 04/12/2024 How often do you attend [facility] or mu-ism services? More than 4 times per year 04/12/2024 Do you belong to any clubs o r organizations such as shinto groups, unions, fraternal or athletic groups, or school groups? Yes 04/12/2024 How often do you attend meet ings of the clubs or organizations you belong to? More than 4 times per year 04/12/2024 Are you , , di vorced, , never , or living with a partner? 04/12/2024 AUDIT-C Answer Date Recorded Q1: How often do you have a drink containing alcohol? 4 or more times a week 04/12/2024 Q2: How many drinks containi ng alcohol do you have on a typical day when you are drinking? 1 or 2 Q3: How often do you have si x or more drinks on one occasion? Never 04/12/2024 Overall Financial Resource Strain (CARDIA) Answe r Date Recorded How hard is it for you to pa y for the very basics like food, housing, medical care, and heating? Not very hard 04/12/2024 [facility] - Occupational Stress Questionnaire Answer Date Recorded Do you feel stress - tense, restless, nervous, or anxious, or unable to sleep at night because your mind is troubled all the time - these days? Only a little 04/12/2024 Exercise Vital Sign Answer Date Recorde d On average, how many days pe r week do you engage in moderate to strenuous exercise (like a brisk walk)? 0 days 04/12/2024 On average, how many minutes do you engage in exercise at this level? 0 min 04/12/2024 Hunger Vital Sign Answer Date Recorded Within the past 12 months, y ou worried that your food would run out before you got the money to buy more. Never true 04/12/19 Within the past 12 months, t he food you bought just didn't last and you didn't have money to get more. Never true 04/12/2024 PRAPARE - Transportation Answer Date Re corded In the past 12 months, has l ack of transportation kept you from medical appointments or from getting medications? No 03/20 In the past 12 months, has l ack of transportation kept you from meetings, work, or from getting things needed for daily living? No 04/12/2024 Housing Stability Vital Sign Answer Torsten e Recorded In the last 12 months, was t here a time when you were not able to pay the mortgage or rent on time? No 04/12/2024 In the past 12 months, how m any times have you moved where you were living? 0 04/12/2024 At any time in the past 12 m [facility], were you homeless or living in a snf (including now)? No 04/12/2024 Comments Unknown Sex and Gender Information Value Date Recorded Sex Assigned at Female 04/12/2024 7:53 PM CURTAIN FRAMER Legal Sex Female 6:51 PM CDT Gender Identity Not on file Sexual Orientation Not on file Last Filed Vital Signs Vital Sign Reading Time Taken Comments Blood Pressure 136/56 04/17/2024 1:30 PM CURTAIN FRAMER Pulse 75 04/17/2024 1:30 PM CURTAIN FRAMER Temperature 36.3 C (97.4 F) 04/17/2024 1:30 PM CURTAIN FRAMER Respiratory Rate 20 04/17/2024 1:30 PM CURTAIN FRAMER Oxygen Saturation 94% 04/17/2024 1:30 PM CURTAIN FRAMER Inhaled Oxygen Concentration - - Weight 77.7 kg (171 lb 4.8 oz) 04/17/2024 4:46 A M CURTAIN FRAMER Height 162.6 cm (5' 4 ) 04/13/2024 12:08 AM CURTAIN FRAMER Body Mass Index 29.4 04/13/2024 12:08 AM CURTAIN FRAMER Plan of Treatment Health Maintenance Due Date Last Done Comments DTaP, Tdap and Td Vaccines ( 1 - Tdap) 09/07/1954 Zoster Vaccines (1 of 2) 1986 Annual Medicare Wellness Visit 2001 RSV Immunization or 60+ Years (1 - 1-dose 75+ series) 09/07/2011 Pneumococcal Vaccine: 50+ Years (2 of 2 - PCV) 12/15/2019 12/14/2018, 12/05/2009 COVID-19 Vaccine (2023-2 5 season) 2023 Meningococcal B Vaccine Aged Out No l onger eligible based on patient's age to complete this topic Meningococcal Vaccine Aged Out No arcadio kailey eligible based on patient's age to complete this topic RSV Immunizations Under 20 Months Aged Out No longer eligible b ased on patient's age to complete this topic Goals Goal Patient Goal Type Associated Problems Recent Progress Patient-Stated? 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 [employer] Procedure Name Priority Date/Time Associated Diagnosis Comments POCT GLUCOSE - DA SILVA DOCKED DEVICE Routine 04/17/2024 11:34 AM CURTAIN FRAMER CBC W/DIFF AUTOMATED Routine 04/17/2024 6:53 AM CURTAIN FRAMER BASIC METABOLIC PANEL Routine 04/17/2024 6:53 AM CURTAIN FRAMER XR CHEST PORTABLE DEONNA 04/16/2024 11: 32 AM CURTAIN FRAMER HOME O2 EVAL Routine 04/16/2024 9:40 AM CURTAIN FRAMER PRO-BRAIN NATRIURETIC PEPTIDE Routine 04/16/2024 6:00 AM CURTAIN FRAMER BASIC METABOLIC PANEL Routine 04/16/2024 6:00 AM CURTAIN FRAMER CBC W/DIFF AUTOMATED Routine 04/16/2024 6:00 AM CURTAIN FRAMER BASIC METABOLIC PANEL Routine 04/15/2024 5:51 AM CURTAIN FRAMER CBC W/DIFF AUTOMATED Routine 04/15/2024 5:51 AM CURTAIN FRAMER MAGNESIUM Routine 04/14/2024 5:41 AM CURTAIN FRAMER COMPREHENSIVE METABOLIC PANEL Routine 04/14/2024 5:41 AM CURTAIN FRAMER CBC W/DIFF AUTOMATED Routine 04/14/2024 5:41 AM CURTAIN FRAMER PROCALCITONIN (PCT) Routine 04/13/2024 5 :35 AM CURTAIN FRAMER BASIC METABOLIC PANEL Routine 04/13/2024 5:35 AM CURTAIN FRAMER CBC W/DIFF AUTOMATED Routine 04/13/2024 5:35 AM CURTAIN FRAMER ELECTROCARDIOGRAM REPORT Routine 025 9:19 PM CURTAIN FRAMER XR CHEST PORTABLE STAT 04/12/2024 8:3 3 PM CURTAIN FRAMER INFLUENZA A & B STAT 04/12/2024 7:28 PM CURTAIN FRAMER CORONAVIRUS (COVID 19) STAT 7:28 PM CURTAIN FRAMER TROPONIN, QUANT STAT 04/12/2024 7:27 PM CURTAIN FRAMER BLOOD GAS, VENOUS STAT 04/12/2024 7:2 7 PM CURTAIN FRAMER MAGNESIUM STAT 04/12/2024 7:26 PM CURTAIN FRAMER PRO-BRAIN NATRIURETIC PEPTIDE STAT 04/12/2024 7:26 PM CURTAIN FRAMER COMPREHENSIVE METABOLIC PANEL STAT 04/12/2024 7:26 PM CURTAIN FRAMER CBC W/DIFF AUTOMATED STAT 04/12/2024 7:26 PM CURTAIN FRAMER ECG 12-LEAD Routine 04/12/2024 7:23 PM CURTAIN FRAMER from Last 3 Months Results * POCT glucose (04/17/2024 11:34 AM CURTAIN FRAMER) [facility] GLUCOSE POC 90 70 - 110 mg/dL 04/17/2024 5:02 PM CURTAIN FRAMER [facility] 04/17/2024 11:3 4 AM CURTAIN FRAMER Juaquin R Dodt SOFT WORK CIGAR MACHINE OPERATOR POCT ORDERABLES - DEVICE Final Result [facility] [address] [place] [address], [place] [phone] * (ABNORMAL) BASIC METABOLIC PANEL (04/17/2024 6:53 AM CURTAIN FRAMER) Only the most recent of4 resultswithin the time period is included. [facility] GLUCOSE 88 70 - 99 MG/DL 04/17/2024 7:24 AM [facility] BUN 21(H) 7 - 18 MG/DL 04/17/2024 7:24 AM [facility] CREATININE S/P/B 0.90 0.55 - 1.02 MG/DL 04/17/2024 7:24 AM [facility] SODIUM S/P/B 139 136 - 145 MMOL/L 04/17/2024 7:24 AM [facility] POTASSIUM S/P/B 3.5 3.5 - 5.1 MMOL/L 04/17/2024 7:24 AM [facility] CHLORIDE S/P/B 102 100 - 108 MMOL/L 04/17/2024 7:24 AM [facility] CO2 30.1 21 - 32 MMOL/L 04/17/2024 7:24 AM [facility] CALCIUM S/P/B 8.7 8.5 - 10.1 MG/DL 04/17/2024 7:24 AM [facility] ANION GAP 6.9 5 - 15 MMOL/L 04/17/2024 7:24 AM [facility] BUN CREATININE RATIO 23.3 6 - 26 04/17/2024 7:24 AM [facility] GFR ESTIMATE 62(L) >90 ML/MIN/1.7 3 M2 04/17/2024 7:24 AM [facility] Comment: NOTE: eGFR is not calculated for patients <18 years of age. This is an estimated GFR calculation using the new CKD EPI creatinine equation without race and so does not require a correction factor for race. This estimated GFR should not be used for calculating drug doses. 04/17/2024 6:53 AM CURTAIN FRAMER us Scarlet Griffith SOFT WORK CIGAR MACHINE OPERATOR LABORATORY Final Result [facility] [address] [place] [address], [place] [phone] * (ABNORMAL) CBC W/DIFF AUTOMATED (04/17/2024 6:53 AM CURTAIN FRAMER) Only the most recent of6 resultswithin the time period is included. [facility] Signature WBC 5.20 4.4 - 11.0 x10'3/uL 04/17/2024 7:15 AM [facility] RBC 3.70(L) 4.50 - 5.10 x10'6/uL 04/17/2024 7:15 AM [facility] HGB 11.0(L) 12.3 - 15.3 G/DL 04/17/2024 7:15 AM [facility] HCT 33.2(L) 35.9 - 44.6 % 04/17/2024 7:15 AM [facility] MCV 89.7 80.0 - 96.0 FL 04/17/2024 7:15 AM [facility] MCH 29.7 25.3 - 30.9 PG 04/17/2024 7:15 AM [facility] MCHC 33.1 31.0 - 34.1 G/DL 04/17/2024 7:15 AM [facility] RDW 13.9 12.4 - 15.1 % 04/17/2024 7:15 AM [facility] PLT 149(L) 151 - 353 x10'3/uL 04/17/2024 7:15 AM [facility] MPV 11.4 9.6 - 12.0 FL 04/17/2024 7:15 AM [facility] RBC MORPHOLOGY NORMAL 04/17/2024 7:15 AM [facility] PLT MORPH. NORMAL 04/17/2024 7:15 AM CURTAIN FRAMER [facility] WBC MORPHOLOGY NORMAL 04/17/2024 7:15 AM [facility] LYMPHOCYTES % 34.2 15.8 - 45.0 % 04/17/2024 7:15 AM [facility] NEUTROPHILS % 55.2 42.1 - 71.9 % 04/17/2024 7:15 AM [facility] MONOCYTES % 9.2 5.7 - 12.5 % 04/17/2024 7:15 AM [facility] EOSINOPHILS 0.2 0.0 - 5.6 % 04/17/2024 7:15 AM [facility] BASOPHILS 0.2 0.0 - 1.3 % 04/17/2024 7:15 AM [facility] ABS. NEUTROPHILS 2.87 1.40 - 6.00 x10'3/uL 04/17/2024 7:15 AM [facility] IMMATURE GRANS % 1.0(H) 0.0 - 0.5 % 04/17/2024 7:15 AM [facility] ABS. LYMPHOCYTES 1.78 0.80 - 4.70 x10'3/uL 04/17/2024 7:15 AM [facility] 04/17/2024 6:53 AM CURTAIN FRAMER Juaquin Marina Casey SOFT WORK CIGAR MACHINE OPERATOR LABORATORY Final Result [facility] [address] [place] [address], * XR CHEST PORTABLE (04/16/2024 11:32 AM CURTAIN FRAMER) Only the most recent of2 resultswithin the time period is included. Anatomical Region Laterality Modality Chest Radiographic Di ging 04/16/2024 12:5 3 PM CURTAIN FRAMER Impressions 04/16/2024 12:54 PM CURTAIN FRAMER IMPRESSION: 1. Referred By: Interpreted By: Andrew Go MD, 04/16/2024 12:53 PM Narrative 04/16/2024 12:54 PM CURTAIN FRAMER [facility] [address] [place] [address] EXAMINATION: Chest radiograph EXAM DATE: 04/16/2024 11:16 AM REASON FOR EXAM: worsening cough, flu A, asthma COMPARISON: 04/12/2024 TECHNIQUE: Single view FINDINGS: Heart size normal. Proximal airways unremarkable. No pneumothorax or pleural effusion. Lungs grossly clear. Calcified granulomas indicate healed granulomatous disease. Procedure Note Andrew Go MD - 04/16/2024 [facility] [address] [place] [address] EXAMINATION: Chest radiograph EXAM DATE: 04/16/2024 11:16 AM REASON FOR EXAM: worsening cough, flu A, asthma COMPARISON: 04/12/2024 TECHNIQUE: Single view FINDINGS: Heart size normal. Proximal airways unremarkable. No pneumothorax orpleural effusion. Lungs grossly clear. Calcified granulomas indicate healed granulomatous disease. IMPRESSION: 1. Referred By: Interpreted By: Andrew Go MD, 04/16/2024 12:53 PM [facility] Final Result * PRO-BRAIN NATRIURETIC PEPTIDE (04/16/2024 6:00 AM CURTAIN FRAMER) Only the most recent of2 resultswithin the time period is included. PRO-B TYPE NATRIURETIC PEPTIDE 437 <450 PG/ML 04/16/2024 12:00 PM CURTAIN FRAMER [facility] Comment: CUT POINTS ESTABLISHED BY [employer]NATIONAL [employer] ON NT PROBNP (ICON) STUDY (2006). AGE INDEPENDENT: <300 PG/ML HAS A 99% NEGATIVE PREDICTIVE VALUE FOR EXCLUDING ACUTE CHF <50 YEARS: >450 PG/ML IS CONSISTENT WITH ACUTE CHF 50-75 YEARS: >900 PG/ML IS CONSISTENT WITH ACUTE CHF >75 YEARS: >1800 PG/ML IS CONSISTENT WITH ACUTE CHF IN PATIENTS WITH RENAL INSUFFICIENCY (GFR <60), >1200 PG/ML YIELDS A DIAGNOSTIC SENSITIVITY AND SPECIFICITY OF 89% AND 72% FOR ACUTE CHF. 04/16/2024 6:00 AM CURTAIN FRAMER Scarlet Griffith SOFT WORK CIGAR MACHINE OPERATOR LABORATORY Final Result [facility] [address] [place] [address], [place] [phone] * (ABNORMAL) COMPREHENSIVE METABOLIC PANEL (04/14/2024 5:41 AM CURTAIN FRAMER) Only the most recent of2 resultswithin the time period is included. GLUCOSE 145(H) 70 - 99 MG/DL 04/14/2024 6:38 AM [facility] BUN 18 7 - 18 MG/DL 04/14/2024 6:38 AM [facility] CREATININE S/P/B 0.89 0.55 - 1.02 MG/DL 04/14/2024 6:38 AM [facility] SODIUM S/P/B 132(L) 136 - 145 MMOL/L 04/14/2024 6:38 AM [facility] POTASSIUM S/P/B 3.6 3.5 - 5.1 MMOL/L 04/14/2024 6:38 AM [facility] CHLORIDE S/P/B 98(L) 100 - 108 MMOL/L 04/14/2024 6:38 AM [facility] CO2 27.4 21 - 32 MMOL/L 04/14/2024 6:38 AM [facility] CALCIUM S/P/B 8.5 8.5 - 10.1 MG/DL 04/14/2024 6:38 AM [facility] BILIRUBIN TOTAL S/P/B 0.3 0.2 - 1.2 MG/DL 04/14/2024 6:38 AM [facility] TOTAL PROTEIN S/P/B 5.6(L) 6.4 - 8.2 G/DL 04/14/2024 6:38 AM [facility] ALBUMIN S/P/B 3.1(L) 3.4 - 5.0 G/DL 04/14/2024 6:38 AM [facility] AST 14(L) 15 - 37 U/L 04/14/2024 6:38 AM [facility] ALT 14 14 - 55 U/L 04/14/2024 6:38 AM [facility] ALKALINE PHOSPHATASE S/P/B 52 50 - 136 U/L 04/14/2024 6:38 AM [facility] ANION GAP 6.6 5 - 15 MMOL/L 04/14/2024 6:38 AM [facility] BUN CREATININE RATIO 20.2 6 - 26 04/14/2024 6:38 AM [facility] A/G RATIO 1.2 1.0 - 2.0 RATIO 04/14/2024 6:38 AM [facility] GFR ESTIMATE 63(L) >90 ML/MIN/1.7 3 M2 04/14/2024 6:38 AM [facility] Comment: NOTE: eGFR is not calculated for patients <18 years of age. This is an estimated GFR calculation using the new CKD EPI creatinine equation without race and so does not require a correction factor for race. This estimated GFR should not be used for calculating drug doses. 04/14/2024 5:41 AM CURTAIN FRAMER Zadia Ruiz NP LABORATORY Final Result [facility] [address] [place] [address], * MAGNESIUM (04/14/2024 5:41 AM CURTAIN FRAMER) Only the most recent of2 resultswithin the time period is included. MAGNESIUM 1.8 1.8 - 2.4 MG/DL 04/14/2024 6:38 AM CURTAIN FRAMER [facility] 04/14/2024 5:41 AM CURTAIN FRAMER us Zaida Ruiz NP LABORATORY Final Result Performing Organization Address [facility] Co de Phone Number [facility] [address] [place] [address], * PROCALCITONIN (PCT) (04/13/2024 5:35 AM CURTAIN FRAMER) PROCALCITONIN <0.05 0.00 - 0.25 NG/ML 04/13/2024 12:17 PM CURTAIN FRAMER [facility] Comment: PROCALCITONIN INTERPRETATION GUIDELINES LOWER RESPIRATORY TRACT INFECTIONS (LRTI): USE OF PCT IN INPATIENT OR EMERGENCY SITUATION INITIATION OF ANTIBIOTICS PCT VALUE INTERPRETATION <0.10 NG/ML ANTIBIOTIC THERAPY STRONGLY DISCOURAGED. 0.10-0.25 NG/ML ANTIBIOTIC THERAPY DISCOURAGED. 0.26-0.50 NG/ML ANTIBIOTIC THERAPY ENCOURAGED. >0.50 NG/ML ANTIBIOTIC THERAPY STRONGLY ENCOURAGED. DISCONTINUE ANTIBIOTICS PCT LESS THAN OR EQUAL TO 0.25 NG/ML OR DELTA PCT >80 PERCENT DELTA PCT= PCT(PEAK)-PCT(CURRENT)/PCT(PEAK)X100% STUDIES HAVE EVALUATED PCT PROTOCOLS IN THESE PATIENTS AND FOUND THAT FOR PATIENTS WHO ARE CLINICALLY STABLE AND ARE TREATED AT THE ED OR ARE HOSPITALIZED, THE INITIATION OF ANTIBIOTIC THERAPY SHOULD BE BASED ON CLINICAL GROUNDS AND A PCT VALUE OF GREATER THAN OR EQUAL TO 0.26 NG/ML. IF PCT REMAINS LOWER, ANTIBIOTICS CAN BE WITHHELD AND PATIENTS CAN BE REASSESSED CLINICALLY WITHOUT SAFETY CONCERNS. IF PATIENTS ARE CLINICALLY STABLE, AN ALTERNATIVE DIAGNOSIS SHOULD BE CONSIDERED. IF PATIENTS ARE UNSTABLE, THEN ANTIBIOTICS MAY BE CONSIDERED. IF PATIENTS DO NOT IMPROVE IN THE SHORT FOLLOW UP PERIOD OF 6 TO 12 HOURS, CLINICAL RE-EVALUATION AND RE-MEASUREMENT OF PCT IS RECOMMENDED. 04/13/2024 5:35 AM CURTAIN FRAMER Zaida Arthur Ruiz ENTRY SPECIALIST LABORATORY Final Result [facility] [address] [place] [address], * EKG Reading (04/12/2024 9:19 PM CURTAIN FRAMER) Narrative Jason Dumont MD - 04/12/2024 9:19 PM CURTAIN FRAMER Jason Dumont MD 04/12/2024 10:56 PM EKG Reading Date/Time: 04/12/2024 9:19 PM Performed by: Jason Dumont MD Authorized by: Jason Dumont MD Interpreted by ED physician Rhythm: sinus rhythm Rate: normal BPM: 88 QRS axis: normal Conduction: conduction normal ST Segments: ST segments normal T Waves: T waves normal Other: no other findings Clinical impression: normal ECG Jason Dumont MD MD CARDIOVASCULAR SYSTEM SER VICES Final Result * CORONAVIRUS (COVID-19) MOLECULAR (04/12/2024 7:28 PM CURTAIN FRAMER) CORONAVIRUS SARS COV 2 RNA NEGATIVE NEGATIVE 04/12/2024 7:55 PM CURTAIN FRAMER [facility] Comment: NEGATIVE RESULTS DO NOT RULE OUT COVID 19 AND SHOULD NOT BE USED THE SOLE BASIS FOR TREATMENT OR PATIENT MANAGEMENT DECISIONS, INCLUDING INFECTION CONTROL DECISIONS. NEGATIVE RESULTS SHOULD BE CONSIDERED IN THE CONTEXT OF A PATIENT'S RECENT EXPOSURES, HISTORY AND THE PRESENCE OF CLINICAL SIGNS AND SYMPTOMS CONSISTENT WITH COVID 19. THE ID NOW COVID-19 2.0 TEST HAS BEEN AUTHORIZED BY THE FDA UNDER EAU FOR USE BY AUTHORIZED LABORATORIES. PERFORMED BY NUCLEIC ACID AMPLIFICATION FOR MOLECULAR QUALITATIVE DETECTION OF SARS-COV-2. SPECIMEN TYPE NASAL 04/12/2024 7:28 PM CURTAIN FRAMER [facility] NASOPHARYNGEAL SWAB / Unknown 04/12/2024 7:28 PM CURTAIN FRAMER us Jason Dumont MD MICROBIOLOGY - GENERAL ORDER ABDI Final Result Performing Organization Address [facility] Co de Phone Number [facility] [address] [place] [address], [place] [phone] * (ABNORMAL) INFLUENZA A & B (04/12/2024 7:28 PM CURTAIN FRAMER) SPECIMEN TYPE NASOPHARYNGEAL SWAB 04/12/2024 7:33 PM CURTAIN FRAMER [facility] INFLUENZA A POSITIVE(A) NEGATIVE 04/12/2024 7:56 PM CURTAIN FRAMER [facility] INFLUENZA B NEGATIVE NEGATIVE 04/12/2024 7:56 PM CURTAIN FRAMER [facility] NASOPHARYNGEAL SWAB / Unknown 04/12/2024 7:28 PM CURTAIN FRAMER us Jason Dumont MD MICROBIOLOGY - GENERAL ORDER ABDI Final Result Performing Organization Address [facility] Co de Phone Number [facility] [address] [place] [address], [place] [phone] * (ABNORMAL) Blood gas, venous (04/12/2024 7:27 PM CURTAIN FRAMER) PH VENOUS 7.36 7.32 - 7.43 04/12/2024 7:37 PM CURTAIN FRAMER [facility] PCO2 VENOUS 48.0 MMHG 04/12/2024 7:37 PM [facility] Comment:NO REFERENCE RANGE H BEEN ESTABLISHED PO2 VENOUS 51.0 MM HG 04/12/2024 7:37 PM [facility] Comment:NO REFERENCE RANGE H BEEN ESTABLISHED TOTAL CO2 VENOUS 28.6(H) 22.0 - 26.0 MMOL/L 04/12/2024 7:37 PM CURTAIN FRAMER [facility] BASE EXCESS VENOUS 1.0 MMOL/L 04/12/2024 7:37 PM CURTAIN FRAMER [facility] Comment:NO REFERENCE RANGE H BEEN ESTABLISHED O2 SAT VENOUS 84 % 04/12/2024 7:37 PM CURTAIN FRAMER [facility] Comment:NO REFERENCE RANGE H BEEN ESTABLISHED BICARB VENOUS 27.1 22.0 - 29.0 MMOL/L 04/12/2024 7:37 PM CURTAIN FRAMER [facility] O2 ADMIN VENOUS NASOPHARYNGEAL SWAB 04/12/2024 7:32 PM [facility] 04/12/2024 7:27 PM [facility] Jason Dumont MD LABORATORY Final Result Performing Organization Address [facility] Co de Phone Number [facility] [address] [place] [address], [place] [phone] * TROPONIN, QUANT (04/12/2024 7:27 PM CUR[facility]AMER) Pathologist [facility] TROPONIN I HIGH SENSITIVITY 9 0 - 50 ng/L 04/12/2024 8:00 PM [facility] [employer] Comment: HIGH DOSES OF BIOTIN, TROPONIN-SPECIFIC AUTOANTIBODIES, AND ANTIBODY THERAPY CONTAINING HAMA MAY INTERFERE WITH THIS TEST RESULT. CORRELATION TO CLINICAL HISTORY AND PRESENTATION RECOMMENDED. 04/12/2024 7:27 PM [employer] [employer] Jason Dumont MD LABORATORY Final Result Performing Organization Address City/[facility]/ZIP Co de Phone Number [facility] [address] [place] [address], [place] [phone] * ECG 12 lead (04/12/2024 7:23 PM [facility]ER) 04/12/2024 7:23 PM [facility] Narrative [facility] ([facility] RAD - 04/13/2024 1:03 PM [facility] Test Date: 2024-04-12 Pat Name: SKINNY AGUIAR Department: 85 Room: 120 Gender: Female Manager Financial Reporting: : 1935 Requested By: JASON DUMONT Order Number: [id number] Reading : Hadley Fan Measurements Intervals Roby Rate: 88 P: 85 MD: 179 QRS: 37 QRSD: 90 T: 80 QT: 357 QTc: 432 Interpretive Statements SINUS RHYTHM POSSIBLE LEFT ATRIAL ENLARGEMENT [-0.1mV P-WAVE IN V1/V2] SEPTAL MYOCARDIAL INFARCTION , PROBABLY OLD [40+ ms Q WAVE IN V1/V2] No previous ECG available for comparison AIN FRAMER Procedure Note Hadley Fan MD - 04/13/2024 [facility] Test Date: 2024-04-12 Pat Name: SKINNY CARTEROBIE Department: 85 Room: 120 Gender: Female Manager Financial Reporting: : 1935 Requested By: JASON DUMONT Order Number: [id number] Reading MD: Hadley Fan Measurements Intervals Roby Rate: 88 P: 85 MD: 179 QRS: 37 QRSD: 90 T: 80 QT: 357 QTc: 432 Interpretive Statements SINUS RHYTHM POSSIBLE LEFT ATRIAL ENLARGEMENT [-0.1mV P-WAVE IN V1/V2] SEPTAL MYOCARDIAL INFARCTION , PROBABLY OLD [40+ ms Q WAVE IN V1/V2] No previous ECG available for comparison AIN FRAMER us Jason Dumont MD ECG ORDERABLES Final Result [facility] ([facility]) RAD from Last 3 Months Insurance MEDICARE LOCAL [facility] Advance Directives Documents on File Type Date Recorded Patient Regional Economist Expl anation Advance Directives and Living Will see legal document regarding Sikh - also POA * Full Code (Latest Code Status on File) Date Activated Date Inactivated Comments 04/13/2024 5:59 AM 04/17/2024 3:59 PM Care Teams Underbaster Relationship Specialty Start Date End Date Micheal Rodriguez MD [address] [facility] [address] [place] [address] PCP - General INTERNAL MEDICINE 04/12/24
== END 2024-07-05 08:44 | disposition home or self-care (01) ==
LOC: ANHIMG 08:49
PROVIDERS: PCP Internal Medicine; Visit Provider Internal Medicine Hematology & Oncology
DX: Z12.31 Encounter for screening mammogram for malignant neoplasm of breast (principal)
CPT/HCPCS: 77063; 77067

== ENCOUNTER 2024-08-26 11:21 | Outpatient (CLI) | payer MEDICARE, OTHER, SELFPAY ==
--- OUTSIDE RECORDS SUMMARY | 2024-08-26 11:26 | XMS_ITS | Clinical Summary ---
Author Organization [facility] Address [facility] [place] [address] Care Team Providers Care Mental Health Coordinator Name Role Phone Micheal Rodriguez MD Primary Care Provider [phone] Allergies Active Allergy Reactions Criticality Noted Date [...] Noted Date Diagnosed Date Acute respiratory failure (CMS/HCC [facility]) 03/20 Social History Tobacco Use Types Packs/Day Years Used Date Smoking Tobacco: Former Cigarettes Tobacco Cessation:Counseling Given: Not Answered B1300 Health Literacy Answer Date Recor ded How often do you need to hav e someone help you when you read instructions, pamphlets, or other written material from your doctor or pharmacy? Rarely 04/12/2024 [facility] Utilities Answer Date Recorded In the past 12 months has e electric, gas, oil, or water company threatened to shut off services in your [...] week 04/12/2024 How often do you attend chur or latter day services? More than 4 times per year 04/12/2024 Do you belong to any clubs o r organizations such as tenriism groups, unions, fraternal or athletic groups, or [...] care, and heating? Not very hard 04/12/2024 [facility] Occupat ional Health - Occupational Stress [...] any time in the past 12 m [facility] [place], were you homeless or living in a jail (including now)? 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 Legal Sex Female 6:51 PM CDT Gender Identity Not on file Sexual Orientation Not on file Last Filed Vital Signs Vital Sign Reading Time Taken Comments Blood Pressure 136/56 04/17/2024 1:30 PM WORKFLOW DEVELOPER Pulse 75 04/17/2024 1:30 PM WORKFLOW DEVELOPER Temperature 36.3 C (97.4 F) 04/17/2024 1:30 PM WORKFLOW DEVELOPER Respiratory Rate 20 04/17/2024 1:30 PM WORKFLOW DEVELOPER Oxygen Saturation 94% 04/17/2024 1:30 PM WORKFLOW DEVELOPER Inhaled Oxygen Concentration - - Weight 77.7 kg (171 lb 4.8 oz) 04/17/2024 4:46 A M WORKFLOW DEVELOPER Height 162.6 cm (5' 4) 04/13/2024 12:08 AM WORKFLOW DEVELOPER Body Mass Index 29.4 04/13/2024 12:08 AM WORKFLOW DEVELOPER Plan of Treatment Health Maintenance Due Date [...] to perform ADLs independently Lifestyle No Andria Larson, RN Insurance MEDICARE [place] [id number] Advance Directives Documents on File Type Date Recorded 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
--- OUTSIDE RECORDS SUMMARY | 2024-08-26 11:26 | XMS_ITS ---
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
--- OUTSIDE RECORDS SUMMARY | 2024-08-26 11:26 | XMS_ITS | Data Portability ---
Author Organization [place] - [facility], [facility] Address [address] [address] [place] [address] Assessment No assessment recorded. Plan of Treatment Reminders Order Date Submit Date Provider Last Modified By Organization Details Last Modified Time Details Appointments Follow Up 15 2024 11:00A M Micheal Rodriguez MD Not available Not available Not available Lab BNP (B-type natriuret ic peptide), serum or plasma 2024 025 [facility] (Lab), [address] [place] [address], [id number], 08/04/2024 04:03:35 BMP, serum or plasma 2024 025 [facility] (Lab), [address] [place] [address], [id number], 08/04/2024 04:03:35 magnesium , serum or plasma 2024 025 [facility] (Lab), [address] [place] [address], [id number], 08/04/2024 04:03:35 TSH, serum or plasma 2024 025 [facility] (Lab), [address] [place] [address], [id number], 08/04/2024 04:03:35 BMP, serum or plasma 2024 025 [facility], [address] [place] [address], [id number], 05/04/2024 04:01:36 Referral None recorded. Procedures None recorded. Surgeries None recorded. Imaging None recorded. Medication Orders bumetanid e 1 mg tablet 2024 025 [id number], [address], [place], [address], 07/28/2024 11:14:40 metolazon e 2.5 mg tablet 2024 025 [facility] [id number] [facility], [address] , [place], [address], 07/28/2024 11:14:40 bumetanid e 1 mg tablet 2024 025 [email or web address] 7 [facility] [id number] [facility], [address], [place], [address], 04/27/2024 12:42:36 bumetanid e 1 mg tablet 2023 024 [id number] [facility], [address] [facility], [place], [address], 01/26/2024 16:39:45 sertralin e 100 mg tablet 2023 024 [email or web address] 7 [facility] [id number], [address] [facility], [place], [address], 04/27/2024 12:32:43 Patient TargetsNo targets recorded. Patient Instructions Encounter Date Encounter Id Patient Instructions Last Modified By Organization Details Last Modified Time 01/26/2024 [id number] learning about asthma Not available 01/26/2024 18:33:46 sleep apnea: car e instructions Not available 01/26/2024 18:33:46 learning about mood disorders [email or web address] Not available 01/26/2024 16:45:10 iron deficiency anemia: care instructions [email or web address] Not available 01/26/2024 18:33:46 I spent a total of _45 minutes (excluding separately reportable procedure time ) in care of this patient. [email or web address] Not available 01/26/2024 16:40:28 04/27/2024 [id number] learning about asthma [email or web address] Not available 04/27/2024 12:42:36 sleep apnea: car e instructions [email or web address] Not available 04/27/2024 12:42:36 learning about mood disorders [email or web address] Not available 04/27/2024 12:42:36 iron deficiency anemia: care instructions [email or web address] Not available 04/27/2024 12:42:36 I spent a total of ___43__ minutes (excluding separately reportable procedure time ) in care of this patient. [email or web address] Not available 04/27/2024 12:41:17 07/28/2024 [id number] learning about asthma [email or web address] Not available 07/28/2024 11:14:36 sleep apnea: car e instructions [email or web address] Not available 07/28/2024 11:14:36 learning about mood disorders Not available 07/28/2024 11:14:36 iron deficiency anemia: care instructions [email or web address] Not available 07/28/2024 11:14:36 I spent a total of _34 minutes (excluding separately reportable procedure time ) in care of this patient. [email or web address] Not available 07/28/2024 11:13:56 Reason for Referral None Reported. Problems Name Problem SNOMED Code Status Onset Date Resolution Date Notes Provider Name and Address Organization Details Recorded Time Chronic diastolic heart failure 944703683 Active 2023 Micheal Rodriguez MD [address] [facility] [address], [place], [address], [facility] 4 16:38:50 Depressive disorder 41658535 Active 2023 Micheal Rodriguez MD [address] [facility] [address], [place], [address], [facility] 16:43:10 Asthma 718374072 Active 2023 Micheal Rodriguez MD [address], [place], [address], [facility] 4 18:20:40 Obstructive sleep apnea syndrome 02942865 Active 2023 Micheal Rodriguez MD [address] [facility] [address], [place], [address], [facility] 4 18:21:15 Chronic rhinosinusi tis 953211288 Active 2023 Micheal Rodriguez MD [address] [facility] [address], [place], [address], [facility] 4 18:21:56 Iron deficiency anemia 60144776 Active 2023 Micheal Rodriguez MD [address] [facility] [address], [place], [address], [facility] 4 18:22:47 Adenomatous polyp of colon 456083429 Active 2023 Micheal Rodriguez MD [address] [facility] [address], [place], [address], [facility] 4 18:27:15 Bilateral osteoarthri tis of knees 8223956000552 07 Active 2023 Micheal Rodriguez MD [address] [facility] [address], [place], [address], [facility] 4 18:27:21 Acute respiratory failure 12786890 [facility] 12:12:05 Acute hypoxemic respiratory failure 521085271 Active 2024 Micheal Rodriguez MD [address] [facility] [address], [place], [address], [facility] 5 12:31:27 Influenza caused by Influenza A virus 553514293 Active 2024 Micheal Rodriguez MD [address], [place], [address], [facility] 5 12:31:32 Acute severe exacerbatio n of asthma 992518012 Active 2024 Micheal Rodriguez MD [address] [facility] [address], [place], [address], [facility] 5 12:33:27 Lymphedema 667663256 Active 2024 Micheal Rodriguez MD [address] [facility] [address], [place], [address], [facility] 5 11:07:48 Problem Notes None recorded. Medical Equipment None Reported. Allergies Allergen ID Allergen Name Allergen Category Reaction Reaction Severity Criticality Documentation Date Start Date Code Code System Note Provider Name and Address Organization Details Recorded Time 2463 codeine medicatio n hives Not available Not available 04/27/20242018 2670 RxNorm [facility] 5 12:11:59 Medications Name Sig Start Date Stop Date Status Note LastModified by Organization Details LastModified Time metolazone 2.5 mg tablet TAKE 1 TABLET BY MOUTH THREE TIMES A WEEK active Not Available Not Available No t Available prednisone 10 mg tablet PLEASE SEE ATTACHED FOR DETAILED DIRECTION S active Not Available Not Available No t Available doxycycline hyclate 100 mg capsule TAKE 1 CAPSULE BY MOUTH TWICE A DAY 01/25 completed Not Available Not Available Not Available bumetanide 2 mg tablet TAKE ONE-HALF TABLET BY MOUTH DAILY 01/25 completed Not Available Not Available Not Available albuterol sulfate 2.5 mg/3 mL (0.083 %) solution for nebulizatio n INHALE 1 VIAL VIA NEBULIZER EVERY 6 HOURS NEEDED FOR SHORTNESS OF BREATH OR WHEEZING active Not Available Not Available No t Available azithromyci n 250 mg tablet 01/25 [...] Available Not Available Vitals Date Recorded Body height Body temperature Body mass index (BMI) Body weight Heart rate Respiratory rate Oxygen saturation Oxygen saturation in Arterial blood by Pulse oximetry Systolic And Diastolic Provider Name and Address Organization Details Last Updated DateTime 5 162.56 cm 98.1 [degF] 28.5 kg/m2 72139.3 3 g 65 /min 22 /min 92 % 92 % 138/60 mm[Hg] [facility] 5 12:11:32 Date Recorded Body height Body temperature Body mass index (BMI) Body weight Heart rate Respiratory rate Oxygen saturation Oxygen saturation in Arterial blood by Pulse oximetry Systolic And Diastolic Provider Name and Address Organization Details Last Updated DateTime 5 162.56 cm 97.9 [degF] 29.4 kg/m2 75594.3 g 97 /min 22 /min 92 % 92 % 148/70 mm[Hg] [facility] 5 10:40:22 Date Recorded Body temperature Body height Body mass index (BMI) Body weight Heart rate Respiratory rate Oxygen saturation Oxygen saturation in Arterial blood by Pulse oximetry Systolic And Diastolic Provider Name and Address Organization Details Last Updated DateTime 4 98.4 [degF] 162.56 cm 29 kg/m2 90375.1 1 g 65 /min 22 /min 95 % 95 % 140/72 mm[Hg] [facility] 4 15:43:35 Social History None recorded. Functional [...] Time Influenza, adjuvanted, trivalent, PF 9 completed MD Lilo Franklin [facility] [address], [place], [address], [facility] 04/27/2024 12:39:14 Influenza, high-dose, quadrivalent, PF 0 completed MD Lilo Franklin [facility] [address], [place], [address], [facility] 04/27/2024 12:39:14 Influenza, adjuvanted, quadrivalent, PF 2 completed MD Lilo Franklin [facility] [address], [place], [address], [facility] 04/27/2024 12:39:14 COVID-19, mRNA, LNP-S, PF, 100 mcg/0.5mL dose or 50 mcg/0.25mL dose 1 completed MD Lilo Franklin [facility] [address], [place], [address], [facility] 04/27/2024 12:39:14 COVID-19, mRNA, LNP-S, PF, 100 mcg/0.5mL dose or 50 mcg/0.25mL dose 1 completed MD Lilo Franklin [facility] [address], [place], [address], [facility] 04/27/2024 12:39:14 COVID-19, mRNA, LNP-S, PF, 100 mcg/0.5mL dose or 50 mcg/0.25mL dose 2 completed MD Lilo Franklin [facility] [address], [place], [address], [facility] 04/27/2024 12:39:14 COVID-19, mRNA, LNP-S, PF, 100 mcg/0.5mL dose or 50 mcg/0.25mL dose 1 completed MD Lilo Franklin [address] [facility] [address], [place], [address], [facility] 04/27/2024 12:39:14 COVID-19, mRNA, LNP-S, bivalent, PF, 50 mcg/0.5 mL or 25mcg/0.25 mL dose 2 completed MD Lilo Franklin [facility] [address], [place], [address], [facility] 04/27/2024 12:39:14 COVID-19, mRNA, LNP-S, PF, 50 mcg/0.5 mL 3 completed MD Lilo Franklin [facility] [address], [place], [address], [facility] 04/27/2024 12:39:14 pneumococcal polysaccharide PPV23 9 completed MD Lilo Franklin [facility] [address], [place], [address], [facility] 04/27/2024 12:39:14 influenza, unspecified formulation 2 completed MD Lilo Franklin [address] [facility] [address], [place], [address], [facility] 04/27/2024 12:39:14 influenza, unspecified formulation 4 completed MD Lilo Franklin [facility] [address], [place], [address], [facility] 04/27/2024 12:39:14 influenza, unspecified formulation 3 completed MD Lilo Franklin [address] [facility] [address], [place], [address], [facility] 04/27/2024 12:39:15 pneumococcal, unspecified formulation 0 completed MD Lilo Franklin [facility] [address], [place], [address], [facility] 04/27/2024 12:39:15 influenza, split (incl. purified surface antigen) 7 completed Micheal Rodriguez MD [address] [facility] [address], [place], [address], [facility] 04/27/2024 12:39:15 Past Encounters Encounter ID Performer Location Encounter Start Date Encounter Closed Date Diagnosis/Indication Diagnosis SNOMED-CT Code Diagnosis ICD10 Code Diagnosis Note [id number] Micheal Rodriguez MD [facility] [address] [place] [address] 01/26/2024 15:21:07 01/26/2024 16:49:37 Chronic diastolic heart failure 154333306 I50.32 Echo 03/11:ef 60-65Perce ntMild aortic valve sclerosis. Trace TR. Grade 1 diastolic dysfunctio n.Noncompl iant with BumexDiscu ssed fluid restrictio nContinue Bumex 1 mg twice daily Depressive disorder 3548 9007 F32.A on sertraline .will increase to 200 mg dailyon alprazolam prn which was given in the hospital Asthma 502768432 J45.[address] Miquel felton and albuterol prndiscuss ed switching to treleg.she will discuss with dr. Oseguera Obstructiv e sleep apnea syndrome 76998028 G47.[address] Oseguera Chronic rhinosinusitis 672812519 J31.0 Seen ENTOn Flonase and Astelin twice a dayIpratro piumGoing to [facility] Iron defic iency anemia 45724090 D50.9 Severe anemia February 2023 with GI bleed due to anticoagul ationRecei [place] iron infusion in the pastFollow s with hematologi st History of malignant neoplasm of breast 576282971 Z85.3 History of breast cancer in 2018Status post right mastectomy On examestane History of thromboembolism 138488040 Z86.718 hx of Venous thrombossB ilateral lower extremity DVT February4Repeat venous duplex 10/09-PE 01/2023was on anticoagul ation but compllicat ed with gi bleed and hence now off History of gastrointestinal bleed 849330958 Z87.19 History of GI bleed February 2023 with severe anemia down to 4Off and do coagulatio n Adenomatou s polyp of colon 937087846 D12.6 Colonoscop y 04/10: Tubular adenoma ascending colon and cecalSees Dr. Cochran Bilateral osteoarthritis of knees 2474889539 55165 M17.0 Preventive procedure 169 021394 Z29.9 Mammogram 06/09Negati veColonosc opy 04/10: Tubular adenoma ascending colon and cecum sees Dr. Alvarez one / 2020: Osteopenia [id number] Micheal Rodriguez MD [facility] [address] [facility] [address] [place] [address] 04/27/2024 11:48:39 04/27/2024 12:49:57 Post-discharge follow-up [id number] Z09 Admission Date: 04/12/2024D ischarge Date: 04/17/2024Di agnosis: resp failure, influenza A, asthma exacerbati onmedicati ons reconcille d and reviewed with the patient Acute hypo xemic respiratory failure 654272227 J96.01 neeing bipap 04/12now offalso needed oxygen suppnow off Influenza caused by Influenza A virus 037004567 J09.X2 treated with tamiflu and completed treatment Acute corey re exacerbation of asthma 891441946 J45.901 resovled now Chronic di astolic heart failure 527318407 I50.32 Echo 03/11:ef 60-65Perce ntMild aortic valve sclerosis. Trace TR. Grade 1 diastolic dysfunctio n.Noncompl iant with BumexDiscu ssed fluid restrictio nContinue Bumex 1 mg twice daily Depressive disorder 3548 9007 F32.A on sertraline .will increase to 200 mg daily now back down to 100 mg dailyon alprazolam prn which was given in the hospital Asthma 818663710 J45.[address] Lafleur symbicort and albuterol prndiscuss ed switching to treleg.she will discuss with dr. Oseguera next month Obstructiv e sleep apnea syndrome 90757465 G47.[address] Oseguera Chronic rhinosinusitis 728989510 J31.0 Seen ENTOn Flonase and Astelin twice a daily ipratropiu mGoing to see slu ENT Iron defic iency anemia 87678412 D50.9 Severe anemia February 2023 with GI bleed due to anticoagul ationRecei [place] iron infusion in the pastFollow s with hematologi st History of malignant neoplasm of breast 294326452 Z85.3 History of breast cancer in 2018Status post right mastectomy On examestane which she completed 2023 History of thromboembolism 148801817 Z86.718 hx of Venous thrombossB ilateral lower extremity DVT February4Repeat venous duplex 10/09-PE 01/2023was on anticoagul ation but complicate d with gi bleed and hence now off History of gastrointestinal bleed 373728372 Z87.19 History of GI bleed February 2023 with severe anemia down to 4Off anticoagul ation Adenomatou s polyp of colon 418577956 D12.6 Colonoscop y 04/10: Tubular adenoma ascending colon and cecalSees Dr. Cochran Bilateral osteoarthritis of knees 2101886819 00166 M17.0 Preventive procedure 169 161002 Z29.9 Mammogram 06/09Negati veColonosc opy 04/10: Tubular adenoma ascending colon and cecum sees Dr. Alvarez one jcvmofl21/ 2020: Osteopenia [id number] Micheal Rodriguez MD [facility] [address] [facility] [address] [place] [address] 07/28/2024 10:31:35 07/28/2024 11:21:00 Chronic diastolic heart failure 442646750 I50.32 Echo 03/11:ef 60-65Perce ntMild aortic valve sclerosis. Trace TR. Grade 1 diastolic dysfunctio n.Noncompl iant with BumexDiscu ssed fluid restrictio nContinue Bumex 1 mg twice dailyrecen tly added on metolazone .weight is up.will add metolazone Depressive disorder 6624 9007 F32.A on sertraline .increased to 200 mg daily now back down to 100 mg dailyon alprazolam prn which was given in the hospital Asthma 228604582 J45.[address] Miquel rollinscort and albuterol prndiscuss ed switching to treleg.she will discuss with dr. Oseguera Obstructiv e sleep apnea syndrome 93160358 G47.[address] Oseguera Chronic rhinosinusitis 412787114 J31.0 Seen ENTOn Flonase and Astelin twice a daily ipratropiu mGoing to see slu ENT Iron defic iency anemia 80591716 D50.9 Severe anemia February 2023 with GI bleed due to anticoagul ationRecei [place] iron infusion in the pastFollow s with hematologi st08/10: iron saturation 10%, seeing hematologi st History of malignant neoplasm of breast 446844704 Z85.3 History of breast cancer in 2018Status post right mastectomy On examestane which she completed 2023 History of thromboembolism 137172880 Z86.718 hx of Venous thrombossB ilateral lower extremity DVT Februaryepeat venous duplex 10/09-PE 01/2023was on anticoagul ation but complicate d with gi bleed and hence now off History of gastrointestinal bleed 333362735 Z87.19 History of GI bleed February 2023 with severe anemia down to 4Off anticoagul ation Adenomatou s polyp of colon 838012994 D12.6 Colonoscop y 04/10: Tubular adenoma ascending colon and cecalSees Dr. Cochran Bilateral osteoarthritis of knees 9194932695 31129 M17.0 Preventive procedure 169 827857 Z29.9 Mammogram 06/09Negati ve 07/10: negativeCo lonoscopy 04/10: Tubular adenoma ascending colon and cecum sees Dr. Alvarez one tanbsiq78/ 2020: Osteopenia Lymphedema 156642994 I89 .0 bilateral lower legs Health Concerns Section Related Observation LastModified by Organization Detai ls LastModified Time None Recorded Concern Status LastModified by Organization Details LastModified Time None Recorded Advance Directives Directive None Recorded Payers Insurance Date Sequence Insurance Name Policy Number Policy Avalos Covered Member ID Avalos Member ID Guarantor Name 07/25/2024 1 [place] Tatianna Bailey [id number] Tatianna Bailey 01/26/2024 2 [employer] [address] [id number] Tatianna Shearer [id number] Tatianna Bailey Notes Date Note Type Note Provider Name and Address Organization Details Recorded Time 01/26/2024 text/html Pt here to establish care. Her primary physician recently relocated. Pt struggling with depression since loosing spouse on September 17 2023. Pt is currently living alone. Pt sees sas developer Lien Preston for asthma. C/O shortness of breath an wheezing daily. Swelling in ankles and feet present for numerous years. Completed chemo and radiation in 2019 for after mastectomy. States she received iron infusions regularly after being diagnosis with stomach bleed in Feb 2023. Micheal Rodriguez MD [address] [facility] [address], [place], [address], [facility] 01/26/2024 18:33:56 04/27/2024 text/html Pt here for hospital follow up. Pt was admitted to [facility] in [place] on 04/12/2024 and discharged on 04/17/2024. DX [...] at night. Micheal Rodriguez MD [address] [facility] [address], [place], [address], [facility] 04/27/2024 12:47:26 07/28/2024 text/html Pt here for foll ow up. Mammogram done on Bill. Pt c/o edema in feet, shortness of breath, very fatigue, more thick clear sputum in am. No chest pain, nausea or vomiting. Uses cane for ambulation. Micheal Rodriguez MD [address] [facility] [address], [place], [address], [facility] 07/28/2024 11:16:12 OBGyn Episode No OBEpisode recorded.
--- OUTSIDE RECORDS SUMMARY | 2024-08-26 11:26 | XMS_ITS | Clinical Summary ---
Author Organization [facility] Address [address] [place] [address] Care Team Providers Care Certified Pesticide Applicator Name Role Phone Micheal Rodriguez MD Primary Care Provider +- [phone] Allergies Active Allergy Reactions Criticality Noted Date Comments Jimenez Hernandez High 02/26/2018 Medications losartan (COZAAR) 50 [...] 0 Active fluticasone propionate (FLONASE) 50 mcg/spray [place], Suspension nasal inhaler SPRAY 1 SPRAY INTO [...] Active Problems Problem Noted Date Diagnosed Date Anemia due to stage 3 chronic kidney disease Iron deficiency anemia, unspecified 04/10/2023 Chronic kidney disease, stage 3 unspecified 03/19 Acute anemia 03/20/2023 Asthma 12/15/2019 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, 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/13/2019 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, estrogen receptor positive 11/19/2017 Encounters Date Type Department Care Team Description 08/02/2024 2:45 PM CDT Office Visit [facility] Oncology and Hematology - Bill [address] [phone] Chadwick Enciso MD Chronic anemia (Primary Dx) 07/29/2024 Orders Only [facility] Oncology and Hematology - Bill [address] [phone] Chadwick Enciso MD 07/28/2024 Orders Only [facility] Oncology and Hematology - Bill [address] [phone] Chadwick Enciso MD 07/27/2024 Orders Only [facility] Oncology and Hematology - Bill [address] [place] [address] Chadwick Enciso MD 07/06/2024 External Device Data STL ABSTRACTION Provider, Abstract 07/06/2024 Orders Only [facility] Oncology and Hematology - Bill [address] [place] [address] Chadwick Enciso MD 07/05/2024 External Device Data STL ABSTRACTION Provider, Abstract [...] on file Legal Sex Female 5:21 AM RN FACULTY Gender Identity Not on file Sexual Orientation Not on file Last Filed Vital Signs Vital Sign Reading Time Taken Comments Blood Pressure 139/75 08/02/2024 2:56 PM CDT Pulse 70 08/02/2024 2:53 PM CDT Temperature 36.4 C (97.6 F) 08/02/2024 2:53 PM CDT Respiratory Rate 15 08/02/2024 2:53 PM CDT Oxygen Saturation 94% 08/02/2024 2:53 PM CDT Inhaled Oxygen Concentration - - Weight 76.3 kg (168 lb 3.2 oz) 08/02/2024 2:53 P M CDT Height 162.6 cm (5' 4) 11/13/2021 11:01 AM CDT Body Mass Index 28.87 11/13/2021 11:01 AM CDT Plan of Treatment Upcoming Encounters Date Type Department Care Team (Late st Contact Info) Description 12/02/2024 11:15 AM CDT Office Visit [facility] Oncology and Hematology - Bill [address] [place] [address] [facility] [address] [place] [address] Chadwick Enciso MD [address] [facility] [address] [place] [address] Health Maintenance Due Date Last Done Comments DTAP/TDAP/TD VACCINES (1 - Tdap) 09[birth year]07/1954 ZOSTER VACCINE (1 of 2) 09/07/1954 RSV VACCINE (60+ or ) (1 - 1-dose 75+ series) 09/07/2011 PNEUMOCOCCAL VACCINE 50+ YEA RS (3 of 3 - PCV) 12/15/2019 12/14/2018, 12/05/2009, 12/05/2009 COVID-19 Vaccine (2023-2 5 season) 2023 01/02/2023, 12/13/2021, 2021, Additional history exists INFLUENZA VACCINE (#1) 2024 2, 11/10/2019, 12/14/2018 OSTEOPOROSIS SCREENING 01/15/2025 01/16/2020, 2019 Procedures Procedure Name Priority Date/Time Associated Diagnosis Comments CHG CA 15 3 Routine 07/26/2024 3:13 PM CDT PROTEIN ELECTROPHORESIS, CSF Routine 07/26/2024 10:08 AM CDT COMPREHENSIVE METABOLIC PANEL Routine 07/26/2024 10:03 AM CDT CBC WITH AUTODIFFERENTIAL Routine 2024 9:57 AM CDT MAMMO SCREENING UNILATERAL LEFT Routine 07/05/2024 1:50 PM CDT XR DEXA BONE DENSITY AXIAL 1 OR MORE SITES Routine 01/16/2020 Aromatase inhibitor use from Last 3 Months or Most Recently Relevant to Health Maintenance Results * CHG CA 15 3 (07/26/2024 3:13 PM CDT) us Chadwick Enciso MD CHG - LABORATORY Final Result * PROTEIN ELECTROPHORESIS, CSF (07/26/2024 10:08 AM CDT) Cerebrospinal fluid CEREBROSPINAL FLUID / Unknown Result Joshua Enciso MD BODY FLUIDS AND STOOLS Final Re sult * COMPREHENSIVE METABOLIC PANEL (07/26/2024 10:03 AM CDT) Blood Result Joshua Enciso MD CHEMISTRY ORDERABLES Final Resu lt * CBC WITH AUTODIFFERENTIAL (07/26/2024 9:57 AM CDT) Blood Result Joshua Enciso MD HEMATOLOGY ORDERABLES Final Res ult * MAMMO SCREENING UNILATERAL LEFT (07/05/2024 1:50 PM CDT) Anatomical Region Laterality Modality Breast Left Mammography Result Joshua Enciso MD MAMMO ORDERABLES Final Result * XR DEXA BONE DENSITY AXIAL 1 OR MORE SITES (01/16/2020) Anatomical Region Laterality Modality Other us Kym[facility] ORDERA BLES Final Result from Last 3 Months or Most Recently Relevant to Health Maintenance Insurance MEDICARE PART A AND B GENERIC PAYOR MEDICARE PART A AND B GENERIC PAYOR Care Teams Certified Pesticide Applicator Relationship Specialty Start Date End Date Micheal Rodriguez MD [address] [facility] [address] [place] [address] PCP - General Internal Medicine 08/02/24
--- OUTSIDE RECORDS SUMMARY | 2024-08-26 11:26 | XMS_ITS | Clinical Summary ---
Author Organization [facility] Address [address] [place] [address] Care Team Providers Care Cone Baker Machine Name Role Phone Micheal Rodriguez MD Primary Care Provider [phone] Source Comments [facility],non-owned Affiliates and Associated Physician Practices is amultiple site organization consisting of ambulatory clinics and hospital sitesin [place], [place], [place] and [place]. This disclosure is being madepursuant to the Care Everywhere program and may not contain all information available regarding this patient. Last updated 17.[facility] Allergies Active Allergy Reactions Criticality Noted Date [...] Active azelastine (Astelin) 0.1 % nasal spray [place] 1 (one) spray into each nostril 2 times daily 90 mL 4 03/14/2024 Active Active Problems No known active problems Immunizations Immunization Administration Dates Next Due INFLUENZA [...] on file Legal Sex Female 5:55 AM SPEECH LANGUAGE SPECIALIST Gender Identity Not on file Sexual Orientation Not on file Last Filed Vital Signs Vital Sign Reading Time Taken Comments Blood Pressure 178/80 03/14/2024 10:22 AM SPEECH LANGUAGE SPECIALIST Pulse 65 03/14/2024 10:22 AM SPEECH LANGUAGE SPECIALIST Temperature - - Respiratory Rate - - Oxygen Saturation - - Inhaled Oxygen Concentration - - Weight 76.2 kg (168 lb) 03/14/2024 10:22 AM SPEECH LANGUAGE SPECIALIST Height 162.6 cm (5' 4) 03/14/2024 10:22 AM SPEECH LANGUAGE SPECIALIST Body Mass Index 28.84 03/14/2024 10:22 AM SPEECH LANGUAGE SPECIALIST Plan of Treatment Health Maintenance Due Date Last Done Comments MEDICARE AWV 12 MONTHS 1936 DTAP/TDAP/TD VACCINES (1 - Tdap) 09/07/1955 ZOSTER VACCINE (1 of 2) 1986 Respiratory Syncytial Virus (RSV) Vaccine Pt: or over 60 yrs (1 - 1-dose 75+ series) 09/07/2011 PNEUMOCOCCAL VACCINE 50+ (2 of 2 - PCV) 12/15/2019 12/14/2018, 12/05/2009 COVID-19 VACCINE (1 - season) 2023 DEPRESSION SCREENING 02/17/2024 INFLUENZA VACCINE (#1) 2024 3, 12/14/2018, 12/03/2013, Additional history exists BONE DENSITY [...] MEDICARE MEDICARE SUPPLEMENT PAYOR GENERIC Care Teams Cone Baker Machine Relationship Specialty Start Date End Date Micheal Rodriguez MD [address] [address] [place] [phone] PCP - General Internal Medicine 03/14/24
--- OUTSIDE RECORDS SUMMARY | 2024-08-26 11:26 | XMS_ITS | Encounter Summary ---
Author Organization [facility] Address [address] [facility] [place] [address] Care Team Providers Care Mill Crane Operator Name Role Phone Mark العلي DO Primary Care Provider [phone] Micheal Rodriguez MD Primary Care Provider [phone] Reason for Referral * Consultation (Routine) - Closed Specialty Diagnoses / Procedures Referred By Contac t Referred To Contact ENT-Otolaryngology Diagnoses Chronic rhinitis Lien Oseguera MD [address] [facility] [address] [place] [address] Phone: tel: fax: Jimbo Canas MD [address] [place] [address] Phone: tel: fax: Referral ID Status Reason Start Date Expiration Date V isits Requested Visits Authorized [id number] Closed Specialty Services Required 01/06/2024 01/05/2025 1 1 GER SHELL Encounter Details Date Type Department Care Team (Late st Contact Info) Description 01/06/2024 Transcribe Orders [facility] - Centralized Scheduling [address] [place] [id number] Lien Oseguera MD [address] [facility] [address] [place] [address] Chronic rhinitis Social History Tobacco Use Types Packs/Day Years Used Date Smoking Tobacco: Never Assessed Comments Unknown Sex and Gender Information Value Date Recorded Sex Assigned at Not on file Legal Sex Female 5:55 AM MANAGER SHELL Gender Identity Not on file Sexual Orientation Not on file documented as of this encounter Plan of Treatment Scheduled Referrals Name Type Priority Associated Diagnoses Order Schedule AMB REFERRAL TO ENT Outpatient Referral Routine Chronic rhinitis 1 Occurrences starting 01/06/2024 until 01/05/2025 documented as of this encounter Visit Diagnoses Diagnosis Chronic rhinitis- Primary documented in this encounter Care Teams Mill Crane Operator Relationship Specialty Start Date End Date Mark العلي DO [address] [place] [phone] PCP - General 04/25/22 03/13/24 Micheal Rodriguez MD [address] [facility] [address] [place] [address] PCP - General Internal Medicine 03/14/24 documented as of this encounter
--- OUTSIDE RECORDS SUMMARY | 2024-08-26 11:26 | XMS_ITS | Clinical Summary ---
Author Organization [facility] Address [address] [place] [address] Care Team Providers Care Project Facilitator Name Role Phone Micheal Rodriguez MD Primary Care Provider Allergies Active Allergy Reactions Criticality Noted Date Comments Codeine Hives Medium 02/26/2018 Lisinopril Hives Medium 03/20/2023 Medications ipratropium-al buteroL (DUO-NEB) 0.5-2.5 mg/3 mL nebulizer solution INHALE [address] OF NEBULIZER TWICE DAILY NEEDED FOR SHORTNESS OF BREATH OR WHEEZING 12/07/19 20 Active albuterol HFA (PROVENTIL HFA,VENTOLIN HFA,PROAIR HFA) 90 mcg/actuation inhaler INHALE 2 PUFFS EVERY 4 HOURS NEEDED FOR WHEEZE OR FOR SHORTNESS OF BREATH 06/11/19 23 Active sertraline (ZOLOFT) 50 mg tablet Take 3 tablets (150 mg total) by mouth daily 04/04/19 24 Active azelastine (ASTELIN) 137 mcg (0.1 %) nasal spray Administer 1 spray into each nostril 2 (two) times a day 02/16/19 24 Active bumetanide (BUMEX) 2 mg tablet Take 1 tablet (2 mg total) by mouth daily 06/09/19 24 Active ALPRAZolam (XANAX) 0.25 mg tablet TAKE 1 TABLET BY MOUTH THREE TIMES A DAY NEEDED FOR ANXIETY 01/04/20 24 Active budesonide-for moteroL (SYMBICORT) 160-4.5 mcg/actuation inhaler Inhale 2 puffs 2 (two) times a day 02/17/[address] (PROTONIX) 40 mg EC tablet Take 1 tablet (40 mg total) by mouth 2 (two) times a day 02/01/20 24 Active metOLazone (ZAROXOLYN) 2.5 mg tabletIndicati ons:Edema, lower extremity Take 1 tablet (2.5 mg total) by mouth daily for 4 days Take 30 minutes before bumetanide. 4 tablet 1 06/21/19 25 Active metoprolol XL (TOPROL-XL) 25 mg extended release tablet TAKE 2 TABLETS BY MOUTH DAILY 180 tablet 1 08/11/19 25 Active metoprolol XL (TOPROL-XL) 25 mg extended release tablet TAKE 2 TABLETS BY MOUTH DAILY 180 tablet 1 12/07/19 24 025 Discontinued Active Problems Problem Noted Date Diagnosed Date Lesion of eyelid 07/01/2023 Assessment & Plan (07/01/2023 2:45 PM CDT): Images from the original note were not included. Schedule for consult with oculoplastics for excision. Early dry stage nonexudative age-related macular degeneration of both eyes 07/01/2023 Assessment & Plan (03/23/2024 1:34 PM CHAINSTITCH SEAT JOINER): Slight srf sup to disc OD now with diffuse drusen and some atrophy OU. Continue AREDS. Pt wants to seek care closer to home. Schedule for consult at [facility] in [place]. F/u here prn. Assessment & Plan (07/01/2023 2:46 PM CDT): Stable with no signs of exudative disease on exam today. F/u in 6 months for repeat DFE and mac OCT. ANG (iron deficiency anemia) 04/10/2023 Acute upper GI bleed 03/21/2023 Assessment & Plan (03/31/2023 3:09 PM CHAINSTITCH SEAT JOINER): CT A/P GI bleed protocol on admission with 2 foci of arterial enhancement and blooming on delayed images in the 2nd and 3rd portions of the duodenum compatible with active extravasation. Hgb 4.5 (baseline 11, 11/2022) from 6 on 03/16. Iron deficient on presentation to OSH, iron deficiency resolved s/p IV repletion. B12 wnl. No hypotension. Pt is Yarsanism and does not accept whole blood products. [...] 03/21/2023 Assessment & Plan (03/21/2023 2:57 AM CHAINSTITCH SEAT JOINER): - Home nightly CPAP Breast cancer 03/21/2023 Assessment & Plan (03/21/2023 2:59 AM CHAINSTITCH SEAT JOINER): R breast CA (2018, ER+) s/p R mastectomy, chemotherapy, and radiation now on surveillance. Was on exemestane until recently, she reports Oncology stopped it due to concern about potential adverse effects. Pulmonary embolism 03/21/2023 Assessment & Plan (03/27/2023 6:23 PM CHAINSTITCH SEAT JOINER): Hospitalized at OSH 01/2023 with RSV; shortly [...] 03/21/2023 Assessment & Plan (04/01/2023 3:38 PM CHAINSTITCH SEAT JOINER): Follows w/ OSH pulmonology. Mild expiratory wheezes [...] 03/21/2023 Assessment & Plan (03/21/2023 3:14 AM CHAINSTITCH SEAT JOINER): - Hold home diltiazem 120 mg daily, losartan 50 mg daily pending clinical course given acute GI bleed Anxiety 03/21/2023 Assessment & Plan (03/21/2023 3:15 AM CHAINSTITCH SEAT JOINER): - Home sertraline Acute anemia 03/20/2023 Assessment & Plan (04/03/2023 10:45 AM CHAINSTITCH SEAT JOINER): Due to GIB. No melena since 03/24. Hgb has been on the low 5s. She is Yarsanism and does not accept whole blood products. S/p 500 IV iron x2 at OSH - Heme consulted: After risk/benefit discussion with patient and loved ones regarding increased risk of DVT/PE expansion with Epo, decision made to proceed with erythrocyte stimulating agent. Patient received Aranesp 400 mcg SQ on 03/20 and 300 mcg on 03/28. Plan is Aranesp 300 mcg qweekly - [facility] unable to provide Aranesp; giving additional dose 04/03 prior to d/c. - She has a follow up appoint with Dr Pérez on 04/16/2023 at 1:30pm. - Order weekly CBC outpatient and have the results faxed to Dr Pérez at [phone] Pseudophakia of both eyes 12/31/2022 Assessment & Plan (07/01/2023 2:46 PM CDT): Stable. Observe. Assessment & Plan (01/01/2023 9:08 AM CHAINSTITCH SEAT JOINER): Stable. Observe. Diastolic heart failure 09/11/2021 Assessment & Plan (03/24/2023 6:44 PM CHAINSTITCH SEAT JOINER): Chart history of diastolic dysfunction, appears hypervolemic on admission with small bilateral pleural effusions and 2+ pitting edema BLEs. No S/s CHF exacerbation - Hold home Bumex 4 mg PO daily pending clinical course given acute GI bleed - TTE- Normal LV size and systolic function Left posterior capsular opacification 04/22/2019 Assessment & Plan (01/01/2023 9:10 AM CHAINSTITCH SEAT JOINER): Stable. Observe. Assessment & Plan (12/25/2021 4:22 PM CHAINSTITCH SEAT JOINER): Mild. Stable. observe. Assessment & Plan (06/26/2021 4:08 PM CDT): Stable. Observe. Assessment & Plan (01/24/2021 12:27 PM CHAINSTITCH SEAT JOINER): Minimal impact on bcva. Observe. Visual symptoms likely due to uncorrected refractive error. Update SRx. Assessment & Plan (04/22/2019 2:56 PM CHAINSTITCH SEAT JOINER): Not yet impacting BCVA. Observe. Update SRx for reading. Retinal drusen of both eyes 04/22/2019 Assessment & Plan (01/01/2023 9:09 AM CHAINSTITCH SEAT JOINER): Progressive non-exudative AMD with GA OU. Recommended pt start AREDS vitamin supplements. F/u in 6 months for repeat DFE with mac OCT. Assessment & Plan (07/03/2022 4:10 PM CDT): Stable on exam today. No e/o conversion to exudative disease. Continue to follow q6mos. Assessment & Plan (12/25/2021 4:22 PM CHAINSTITCH SEAT JOINER): cuticular drusen OU. Low risk of conversion to exudative disease. Repeat dfe in 6 mos. Assessment & Plan (06/26/2021 4:08 PM CDT): No active exudative disease evident on exam and OCT today. Continue to follow q6mo. Assessment & Plan (01/24/2021 12:27 PM CHAINSTITCH SEAT JOINER): Stable on exam. Will recheck OCT at f/u. Assessment & Plan (04/22/2019 2:55 PM CHAINSTITCH SEAT JOINER): Small hard drusen OU. Mild. Annual exam. Exposure keratopathy 04/22/2019 Assessment & Plan (12/25/2021 4:22 PM CHAINSTITCH SEAT JOINER): ATs prn. Assessment & Plan (04/22/2019 2:57 PM CHAINSTITCH SEAT JOINER): Variable blur when reading likely due to ocular surface disruption/unstable tear film. Increase use of ATs before reading. Encounters Date Type Department Care Team Description 06/20/2024 11:00 AM CDT Office Visit [facility] Medical Group Cardiology [address] [place] [phone] Tiffnaie Juarez NP Chronic diastolic heart failure (HCC) [...] on file Legal Sex Female 3:01 AM CHAINSTITCH SEAT JOINER Gender Identity Not on file Sexual Orientation [...] 11:15 AM CDT Height 162.6 cm (5' 4) 06/20/2024 11:15 AM CDT Body Mass Index [...] of 2 - PCV) 12/15/2019 12/14/2018, 12/05/2009 Osteoporosis Screening-Bone Density Scan 01/15/2022 01/16/2020, 01/16/2020 Fall Risk Assessment 04/03/2024 04/03/2023 Influenza Vaccine (#1) 2024 , 12/14/2018, 12/03/2013, Additional history exists Insurance MEDICARE [address] [facility] SUPPLEMENT MEDICARE COMMERCIAL GENERIC MEDICARE LOCAL [address] SUPPLEMENT Advance Directives For more information, please contact: [phone] Documents on File Type Date Recorded Patient Core Manager Expl anation ADVANCE DIRECTIVE 04/07/2023 7:01 PM POWER OF RECREATIONAL PROGRAMS DIRECTOR-MEDICAL * Full Code (Latest Code Status on File) Date Activated Date Inactivated Comments 03/20/2023 7:03 PM 04/03/2023 5:45 PM Care Teams Project Facilitator Relationship Specialty Start Date End Date Micheal Rodriguez MD [address] [facility] [address] [place] [address] PCP - General Internal Medicine 06/20/24
--- OUTSIDE RECORDS SUMMARY | 2024-08-26 11:26 | XMS_ITS ---
Author Organization [facility] Address [address] [place] [address] Care Team Providers Care Silica Filter Operator Name Role Phone Micheal Rodriguez MD Primary Care Provider Active Problems Problem Noted Date Diagnosed Date Lesion of eyelid 07/01/2023 Assessment & Plan (07/01/2023 2:45 PM CDT): Images from the original note were not included. Schedule for consult with oculoplastics for excision. Early dry stage nonexudative age-related macular degeneration of both eyes 07/01/2023 Assessment & Plan (03/23/2024 1:34 PM NETWORKS SOFTWARE CONSULTANT): Slight srf sup to disc OD now with diffuse drusen and some atrophy OU. Continue AREDS. Pt wants to seek care closer to home. Schedule for consult at [facility] in [place]. F/u here prn. Assessment & Plan (07/01/2023 2:46 PM CDT): Stable with no signs of exudative disease on exam today. F/u in 6 months for repeat DFE and mac OCT. ANG (iron deficiency anemia) 04/10/2023 Acute upper GI bleed 03/21/2023 Assessment & Plan (03/31/2023 3:09 PM NETWORKS SOFTWARE CONSULTANT): CT A/P GI bleed protocol on admission with 2 foci of arterial enhancement and blooming on delayed images in the 2nd and 3rd portions of the duodenum compatible with active extravasation. Hgb 4.5 (baseline 11/2022) from 6 on 03/16. Iron deficient on presentation to OSH, iron deficiency resolved s/p IV repletion. B12 wnl. No hypotension. Pt is Yazidism and does not accept whole blood products. [...] 03/21/2023 Assessment & Plan (03/21/2023 2:57 AM NETWORKS SOFTWARE CONSULTANT): - Home nightly CPAP Breast cancer 03/21/2023 Assessment & Plan (03/21/2023 2:59 AM NETWORKS SOFTWARE CONSULTANT): R breast CA (2018, ER+) s/p R mastectomy, chemotherapy, and radiation now on surveillance. Was on exemestane until recently, she reports Oncology stopped it due to concern about potential adverse effects. Pulmonary embolism 03/21/2023 Assessment & Plan (03/27/2023 6:23 PM NETWORKS SOFTWARE CONSULTANT): Hospitalized at OSH 01/2023 with RSV; shortly [...] 03/21/2023 Assessment & Plan (04/01/2023 3:38 PM NETWORKS SOFTWARE CONSULTANT): Follows w/ OSH pulmonology. Mild expiratory wheezes [...] 03/21/2023 Assessment & Plan (03/21/2023 3:14 AM NETWORKS SOFTWARE CONSULTANT): - Hold home diltiazem 120 mg daily, losartan 50 mg daily pending clinical course given acute GI bleed Anxiety 03/21/2023 Assessment & Plan (03/21/2023 3:15 AM NETWORKS SOFTWARE CONSULTANT): - Home sertraline Acute anemia 03/20/2023 Assessment & Plan (04/03/2023 10:45 AM NETWORKS SOFTWARE CONSULTANT): Due to GIB. No melena since 03/24. Hgb has been on the low 5s. She is Yazidism and does not accept whole blood products. S/p 500 IV iron x2 at OSH - Heme consulted: After risk/benefit discussion with patient and loved ones regarding increased risk of DVT/PE expansion with Epo, decision made to proceed with erythrocyte stimulating agent. Patient received Aranesp 400 mcg SQ on 03/20 and 300 mcg on 03/28. Plan is Aranesp 300 mcg qweekly - [facility] unable to provide Aranesp; giving additional dose 04/03 prior to d/c. - She has a follow up appoint with Dr Pérez on 04/16/2023 at 1:30pm. - Order weekly CBC outpatient and have the results faxed to Dr Pérez at [phone] Pseudophakia of both eyes 12/31/2022 Assessment & Plan (07/01/2023 2:46 PM CDT): Stable. Observe. Assessment & Plan (01/01/2023 9:08 AM NETWORKS SOFTWARE CONSULTANT): Stable. Observe. Diastolic heart failure 09/11/2021 Assessment & Plan (03/24/2023 6:44 PM NETWORKS SOFTWARE CONSULTANT): Chart history of diastolic dysfunction, appears hypervolemic on admission with small bilateral pleural effusions and 2+ pitting edema BLEs. No S/s CHF exacerbation - Hold home Bumex 4 mg PO daily pending clinical course given acute GI bleed - TTE- Normal LV size and systolic function Left posterior capsular opacification 04/22/2019 Assessment & Plan (01/01/2023 9:10 AM NETWORKS SOFTWARE CONSULTANT): Stable. Observe. Assessment & Plan (12/25/2021 4:22 PM NETWORKS SOFTWARE CONSULTANT): Mild. Stable. observe. Assessment & Plan (06/26/2021 4:08 PM CDT): Stable. Observe. Assessment & Plan (01/24/2021 12:27 PM NETWORKS SOFTWARE CONSULTANT): Minimal impact on bcva. Observe. Visual symptoms likely due to uncorrected refractive error. Update SRx. Assessment & Plan (04/22/2019 2:56 PM NETWORKS SOFTWARE CONSULTANT): Not yet impacting BCVA. Observe. Update SRx for reading. Retinal drusen of both eyes 04/22/2019 Assessment & Plan (01/01/2023 9:09 AM NETWORKS SOFTWARE CONSULTANT): Progressive non-exudative AMD with GA OU. Recommended pt start AREDS vitamin supplements. F/u in 6 months for repeat DFE with mac OCT. Assessment & Plan (07/03/2022 4:10 PM CDT): Stable on exam today. No e/o conversion to exudative disease. Continue to follow q6mos. Assessment & Plan (12/25/2021 4:22 PM NETWORKS SOFTWARE CONSULTANT): cuticular drusen OU. Low risk of conversion to exudative disease. Repeat dfe in 6 mos. Assessment & Plan (06/26/2021 4:08 PM CDT): No active exudative disease evident on exam and OCT today. Continue to follow q6mo. Assessment & Plan (01/24/2021 12:27 PM NETWORKS SOFTWARE CONSULTANT): Stable on exam. Will recheck OCT at f/u. Assessment & Plan (04/22/2019 2:55 PM NETWORKS SOFTWARE CONSULTANT): Small hard drusen OU. Mild. Annual exam. 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 Assessment & Plan (04/22/2019 2:57 PM NETWORKS SOFTWARE CONSULTANT): Variable blur when reading likely due to [...]
--- OUTSIDE RECORDS SUMMARY | 2024-08-26 11:26 | XMS_ITS | Continuity of Care Document ---
Author Organization [facility] [place] Address [address] [place] [address] Phone Care Team Providers Care Tutorial Laboratory Supervisor Name Role Phone Erica Flores Unavailable Unavailable Procedures Procedure Date Eye Exam & Treatment Refraction Eye Exam & Treatment Eye Exam & Treatment Eye Exam & Treatment Advance Directives Directive Yes / No Effective Date File Name No Information Encounters Encounter Description Practice Location Reason(s) For Visit Diagnoses Date Provider Providers Copied on Encounter [facility], [address] [place] [address] [address], [place], [place], [id number], tel:[phone] [facility] No Information 6-201 0 Sandra Garnica [address] , [address], [place], [place], [facility], . tel:[phone] [facility], [address] [place] [address] [address], [place], [place], [id number], [place] tel:[phone] [facility] No Information 7-200 9 Sandra Garnica [address] , [address], [place], [place], [facility], . tel:[phone] [facility], [address] [place] [address] [address], [place], [place], [id number], tel:[phone] [facility] No Information 8 Sandra Garnica [address] , [address], [place], [address], [place]. tel:[phone] [facility], [address], [place], [place], [id number], [place] tel:[phone] [facility] No Information 7 Sandra Maldonado. [address] , [address], [place], [address], [place]. tel:[phone] Family History Family Member Type Diagnosis Age At Onset No Information Payers Payer name Insurance type Covered constitution party ID Gissell ralphgloria(s) [place] [id number] Social History Type Description Quantity Date Captured [...]
--- OUTSIDE RECORDS SUMMARY | 2024-08-26 11:26 | XMS_ITS | Referral Summary ---
Author Organization [facility] Address [address] [place] [address] Care Team Providers Care Pointing Machine Operator Name Role Phone Micheal Rodriguez MD Primary Care Provider Encounters Date Type Department Care Team Description 06/20/2024 11:00 AM CDT Office Visit [facility] [address] [place] [address] Tiffanie Juarez NP Chronic diastolic [...] 07/01/2023 Assessment & Plan (03/23/2024 1:34 PM REGULATORY AFFAIRS MANAGER): Slight srf sup to disc OD now with diffuse drusen and some atrophy OU. Continue AREDS. Pt wants to seek care closer to home. Schedule for consult at [facility] in [place]. F/u here prn. Assessment & Plan (07/01/2023 2:46 PM CDT): Stable with no signs of exudative disease on exam today. F/u in 6 months for repeat DFE and mac OCT. ANG (iron deficiency anemia) 04/10/2023 Acute upper GI bleed 03/21/2023 Assessment & Plan (03/31/2023 3:09 PM REGULATORY AFFAIRS MANAGER): CT A/P GI bleed protocol on admission with 2 foci of arterial enhancement and blooming on delayed images in the 2nd and 3rd portions of the duodenum compatible with active extravasation. Hgb 4.5 (baseline 11, 11/2022) from 6 on 03/16. Iron deficient on presentation to OSH, iron deficiency resolved s/p IV repletion. B12 wnl. No hypotension. Pt is [employer]ism and does not accept whole blood products. [...] 03/21/2023 Assessment & Plan (03/21/2023 2:57 AM REGULATORY AFFAIRS MANAGER): - Home nightly CPAP Breast cancer 03/21/2023 Assessment & Plan (03/21/2023 2:59 AM REGULATORY AFFAIRS MANAGER): R breast CA (2018, ER+) s/p R mastectomy, chemotherapy, and radiation now on surveillance. Was on exemestane until recently, she reports Oncology stopped it due to concern about potential adverse effects. Pulmonary embolism 03/21/2023 Assessment & Plan (03/27/2023 6:23 PM REGULATORY AFFAIRS MANAGER): Hospitalized at OSH 01/2023 with RSV; shortly [...] 03/21/2023 Assessment & Plan (04/01/2023 3:38 PM REGULATORY AFFAIRS MANAGER): Follows w/ OSH pulmonology. Mild expiratory wheezes [...] 03/21/2023 Assessment & Plan (03/21/2023 3:14 AM REGULATORY AFFAIRS MANAGER): - Hold home diltiazem 120 mg daily, losartan 50 mg daily pending clinical course given acute GI bleed Anxiety 03/21/2023 Assessment & Plan (03/21/2023 3:15 AM REGULATORY AFFAIRS MANAGER): - Home sertraline Acute anemia 03/20/2023 Assessment & Plan (04/03/2023 10:45 AM REGULATORY AFFAIRS MANAGER): Due to GIB. No melena since 03/24. Hgb has been on the low 5s. She is Pentecostalism and does not accept whole blood products. [...] the results faxed to Dr Pérez at [phone] Pseudophakia of both eyes 12/31/2022 Assessment & Plan (07/01/2023 2:46 PM CDT): Stable. Observe. Assessment & Plan (01/01/2023 9:08 AM REGULATORY AFFAIRS MANAGER): Stable. Observe. Diastolic heart failure 09/11/2021 Assessment & Plan (03/24/2023 6:44 PM REGULATORY AFFAIRS MANAGER): Chart history of diastolic dysfunction, appears hypervolemic on admission with small bilateral pleural effusions and 2+ pitting edema BLEs. No S/s CHF exacerbation - Hold home Bumex 4 mg PO daily pending clinical course given acute GI bleed - TTE- Normal LV size and systolic function Left posterior capsular opacification 04/22/2019 Assessment & Plan (01/01/2023 9:10 AM REGULATORY AFFAIRS MANAGER): Stable. Observe. Assessment & Plan (12/25/2021 4:22 PM REGULATORY AFFAIRS MANAGER): Mild. Stable. observe. Assessment & Plan (06/26/2021 4:08 PM CDT): Stable. Observe. Assessment & Plan (01/24/2021 12:27 PM REGULATORY AFFAIRS MANAGER): Minimal impact on bcva. Observe. Visual symptoms likely due to uncorrected refractive error. Update SRx. Assessment & Plan (04/22/2019 2:56 PM REGULATORY AFFAIRS MANAGER): Not yet impacting BCVA. Observe. Update SRx for reading. Retinal drusen of both eyes 04/22/2019 Assessment & Plan (01/01/2023 9:09 AM REGULATORY AFFAIRS MANAGER): Progressive non-exudative AMD with GA OU. Recommended pt start AREDS vitamin supplements. F/u in 6 months for repeat DFE with mac OCT. Assessment & Plan (07/03/2022 4:10 PM CDT): Stable on exam today. No e/o conversion to exudative disease. Continue to follow q6mos. Assessment & Plan (12/25/2021 4:22 PM REGULATORY AFFAIRS MANAGER): cuticular drusen OU. Low risk of conversion to exudative disease. Repeat dfe in 6 mos. Assessment & Plan (06/26/2021 4:08 PM CDT): No active exudative disease evident on exam and OCT today. Continue to follow q6mo. Assessment & Plan (01/24/2021 12:27 PM REGULATORY AFFAIRS MANAGER): Stable on exam. Will recheck OCT at f/u. Assessment & Plan (04/22/2019 2:55 PM REGULATORY AFFAIRS MANAGER): Small hard drusen OU. Mild. Annual exam. Exposure keratopathy 04/22/2019 Assessment & Plan (12/25/2021 4:22 PM REGULATORY AFFAIRS MANAGER): ATs prn. Assessment & Plan (04/22/2019 2:57 PM REGULATORY AFFAIRS MANAGER): Variable blur when reading likely due to [...] on file Legal Sex Female 3:01 AM REGULATORY AFFAIRS MANAGER Gender Identity Not on file Sexual Orientation [...] ESOPHAGOGASTRODUODENOSCOPY Open Access Acute anemia Insurance MEDICARE [place] [id number] 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
[2024-08-26 12:50] LABS: Anion Gap 8 mmol/L (4-12); Blood Urea Nitrogen 19 mg/dL (7-17); Calcium 9.1 mg/dL (8.4-10.2); Carbon Dioxide 31 mmol/L (22-30); Chloride 86 mmol/L (98-107); Estimated Glomerular Filt Rate 48; Glucose 97 mg/dL (65-110); Magnesium 1.8 mg/dL (1.6-2.3); Potassium 3.0 mmol/L (3.4-5.0); Sodium 125 mmol/L (137-145)
[2024-08-26 13:02] LABS: NT Pro B Type Natriuretic Pept 347 pg/mL (19.9-100)
[2024-08-26 13:23] LABS: Thyroid Stimulating Hormone 1.230 uIU/mL (0.465-4.680)
== END 2024-08-26 11:22 | disposition home or self-care (01) ==
PROVIDERS: PCP Internal Medicine; Visit Provider Internal Medicine
DX: I50.32 Chronic diastolic (congestive) heart failure (principal)
CPT/HCPCS: 36415; 80048; 83735; 83880; 84443

== ENCOUNTER 2024-08-29 09:58 | Emergency (ER) | payer MEDICARE, OTHER, SELFPAY ==
--- NOTE | ~2024-08-29 | XR_ITS ---
EXAMINATION: XR thoracolumbar DATE: 08/29/2024 11:43 INDICATION: Thoracolumbar pain and bruising post fall TECHNIQUE: Standing AP and lateral views of the spine from the mid thoracic through the lumbosacral s pine. COMPARISON: None. FINDINGS: 15 degrees lumbar dextroscoliosis with mild compensatory lower thoracic levocurvature. Sagittal align ment is normal. Mild disc height loss at several levels in the midthoracic spine. Multilevel moderate to severe disc height loss in the mid to lower lumbar spine along with severe left-sided lower lumba r predominant facet osteoarthritis. Mild bilateral sacroiliac osteoarthritis. Cholecystectomy clips i n right upper quadrant. IMPRESSION: 1. 15 degrees lumbar dextroscoliosis with moderate to severe spondylosis. Mild spondylosis in the mid to lower thoracic spine. Reviewed, dictated and finalized at location A.
--- NOTE | ~2024-08-29 | XR_ITS ---
[id number] Ordering provider: Svetlana Henao APRN History: . pain and bruising post fall 4 days ago . Comparison: None. FINDINGS: BONES: No acute right rib fracture or fracture of the visualized osseous structures. LUNGS: No effusions or infiltrates. No pneumothorax. SOFT TISSUES: Normal. IMPRESSION: No right rib fracture (Note: subtle/nondisplaced rib fractures can be occult on plain films and if th ere is continued clinical suspicion for rib fracture, recommend follow up CT chest). Reviewed, dictated and finalized at location A. IMPRESSION: No right rib fracture (Note: subtle/nondisplaced rib fractures can be occult on plain films and if there is continued clinical suspicion for rib fracture, rec ommend follow up CT chest).
[2024-08-29 10:33] VITALS: BP 158/65; PULSE 61; RESP 20; TEMP 36.7; O2SAT 98
--- NOTE | 2024-08-29 11:04 | ED.GENADULT ---
HPI - General Adult General Chief complaint: Fall Stated complaint: Back Pain Time Seen by Provider: 08/29/24 11:04 Source: patient, RN notes reviewed and old records reviewed Mode of arrival: ambulatory Limitations: no limitations History of Present Illness HPI narrative: [age] year old female presents to the [facility] with complaints of back pain. States that she was walking, lost her balance and fell backwards with her back landing against the corner of the door and door frame. Patient reports this occurred on , 4 days ago Has taken Tylenol for pain. Patient denies hitting head. No loss of consciousness. Patient with bruising and abrasion noted to the thoracic mid back. Tenderness to the right lower spine Onset (ago): day(s) (4) Treatments prior to arrival: other (Tylenol) Related Data Home Medications ?Medication ?Instructions ?Recorded ?Confirmed ?Last Taken ?Type albuterol sulfate 90 mcg/actuation 2 puff inhalation QID 03/16/23 08/08/24 Unknown History aerosol inhaler (Ventolin HFA) multivitamin (Daily Multi-Vitamin 1 tablet PO DAILY 04/14/23 08/08/24 Unknown History tablet) vitamin B complex (B 1 tablet PO DAILY 04/14/23 08/08/24 Unknown History Complex-Vitamin B12 tablet) metoprolol succinate 25 mg mg PO 08/29/24 Unknown History tablet,extended release 24 hr Allergies Allergy/AdvReac Type Severity Reaction Status Date / Time lisinopril Allergy Intermediate Hives Verified 08/29/24 10:44 codeine Allergy Unknown Unknown- Verified 08/29/24 10:44 UNABLE TO RECAL Review of Systems Review of Systems: All systems reviewed & are unremarkable except as noted in HPI and below Constitutional: Constitutional: Reports no additional constitutional complaints Cardiovascular: Cardiovascular: Reports no additional cardiovascular complaints, Denies chest pain and Denies dyspnea Respiratory: Respiratory: Reports no additional respiratory complaints, Denies chest congestion, Denies cough and Denies dyspnea Musculoskeletal: Musculoskeletal: Reports as per HPI and Reports back pain Integumentary/Breasts: Skin/Breast: Reports as per HPI and Reports other (Abrasion, abrasion) [facility] Past Medical History Medical History Pancreatitis History of esophageal dilatation Nonallergic rhinitis Refusal of blood transfusions as patient is Religion DVT (deep venous thrombosis) Chronic anticoagulation GI bleed Pulmonary embolism Chronic hyponatremia Diastolic dysfunction Asthma Hypertension Anemia Adenomatous colon polyp EVELYN (obstructive sleep apnea) Insomnia Port-A-Cath in place (~2018) Chronic sinusitis Degenerative arthritis of knee, bilateral Depression Osteoarthritis of right knee (Unknown) Anxiety Estrogen receptor positive status (ER+) Iron deficiency anemia due to chronic blood loss 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, estrogen receptor positive Surgical History Surgical History History of hysterectomy History of cataract extraction with lens replacement History of bladder surgery Bladder tie up x2 History of cholecystectomy S/P nasal surgery History of right mastectomy History of right knee surgery History of hernia repair Family History Family History Father Family history of diabetes mellitus in first degree relative Family history of coronary artery disease Patient's father is in good health Mother Family history of lung cancer Sibling Family history of lung cancer Family history of malignant neoplasm of brain, Onset Age: 60 Other Diabetes mellitus Family history of cardiovascular disease Family history of kidney disease Social History Social History Social History: Surrogate medical decision maker: Urbano Bailey, son. Code status: Full code. Smoking packs per day: 0.5 Smoking cigarettes per day: 10.0 Years smoked: 20 Smoking pack-years: 10.00 Smoking status: Never smoker Second hand tobacco smoke exposure: No Additional smoking assessment comments: STATES <PK/DAY/3YRS Alcohol intake: current Drinks per week: 3 Alcohol use details: DRINK Substance use: never Substance use type: does not use Do You Feel Safe in your Home?: Yes Lack of Transportation: No Lack of Food: Never True Current Housing: I Have Housing Concerned About Future Housing: No Difficulty Paying Gas/Electric Bills: No Difficulty Paying for Meds: No Currently Unemployed: No Education: High School Diploma/GED Difficulty w/ Childcare or Family Care: No Living arrangements: with family Additional living arrangements comments: LIVES WITH SPOUSE [facility]OS Occupation/Education: retired Spiritual care concerns: No Agree to blood products: No Comments At the time of my signature, I reviewed and agree with the nursing past medical, surgical, social, and family history. There is no relevant family history pertinent to the patient complaint. Exam Const: General: cooperative, no acute distress, well developed, alert, ill appearing chronically, uncomfortable and well nourished Nutritional Appearance: well nourished Orientation/consciousness: patient oriented x3 Limitations: no limitations HENMT: Head: normal to inspection Eyes: General: appearance normal, both eyes and all related structures Alignment and Position: alignment normal Neck: Neck: normal visual inspection, full ROM, no lymphadenopathy and no meningeal signs Chest: Chest palpation & inspection: normal inspection of the chest Resp: Effort & Inspection: normal respiratory effort and able to speak in complete sentences Auscultation: clear to auscultation bilaterally, no crackles, no rales, no rhonchi and no wheezes Cardio: Rate: regular rate Back/Spine/Pelvis: Back: No erythema, ecchymosis and back tenderness Back/spine/pelvis image:  1. 7 x 1 and half abrasion, surrounding bruising 7 x 10 cm. Skin: General skin exam: normal color and no rashes or lesions noted Wounds: wounds noted Other: Abrasion 7 x 1.5 cm Neuro: General: patient oriented x3, gait normal, moves all extremities and no meningeal signs Cognition (Neuro): normal cognition Speech: normal speech Gait exam (Neuro): Normal gait present Extrem: General: normal to inspection, full ROM, capillary refill normal and normal gait Psych: Appearance: grossly normal and well kempt Mental Status: mental status grossly normal Speech and movement: Normal speech and movement present and Clear speech present Affect: normal affect Attitude: cooperative Course Course Level of Care: Express Care Visit Vital Signs Vital signs: Vital Signs Temperature 98.0 F 08/29/24 10:33 Pulse Rate 61 08/29/24 10:33 Respiratory Rate 20 08/29/24 10:33 Blood Pressure 158/65 H 08/29/24 10:33 Pulse Oximetry 98 08/29/24 10:33 Oxygen Delivery Room Air 08/29/24 10:33 Temperature 98.0 F 08/29/24 10:33 Pulse Rate 61 08/29/24 10:33 Respiratory Rate 20 08/29/24 10:33 Blood Pressure 158/65 H 08/29/24 10:33 Pulse Oximetry 98 08/29/24 10:33 Oxygen Delivery Room Air 08/29/24 10:33 Reviewed Medical Decision Making MDM Narrative Medical decision making narrative: Patient sitting comfortably in exam room. Nontoxic, vitals stable. Patient in no acute distress Patient presents post fall 4 days ago, abrasion, ecchymosis noted X-ray showed no acute findings Patient appropriate for outpatient treatment with close follow-up Discharge instructions reviewed with patient, as well as provided in writing per nursing staff. The instructions also include specific and strict return/GO TO THE ER as well as f/u information. All questions have been answered, and the patient deny any further questions with discharge and discharge plan. Some parts of this dictation were generated by voice recognition software and may contain typographical and/or grammatical inaccuracies. Differential Diagnosis Differential Diagnosis: Contusion, abrasion, rib fracture, spinal fracture Medical Records Medical records reviewed: Yes I reviewed the external patient's medical records. Vital Signs Vital Signs: Vital Signs Temperature 98.0 F 08/29/24 10:33 Pulse Rate 61 08/29/24 10:33 Respiratory Rate 20 08/29/24 10:33 Blood Pressure 158/65 H 08/29/24 10:33 Pulse Oximetry 98 08/29/24 10:33 Oxygen Delivery Room Air 08/29/24 10:33 Temperature 98.0 F 08/29/24 10:33 Pulse Rate 61 08/29/24 10:33 Respiratory Rate 20 08/29/24 10:33 Blood Pressure 158/65 H 08/29/24 10:33 Pulse Oximetry 98 08/29/24 10:33 Oxygen Delivery Room Air 08/29/24 10:33 Reviewed Lab Data Lab results reviewed: Yes I reviewed the patient's lab results. Labs: Reviewed Imaging Data Radiologist's impression: EXAMINATION: XR thoracolumbar DATE: 08/29/2024 11:43 INDICATION: Thoracolumbar pain and bruising post fall TECHNIQUE: Standing AP and lateral views of the spine from the mid thoracic through the lumbosacral spine. COMPARISON: None. FINDINGS: 15 degrees lumbar dextroscoliosis with mild compensatory lower thoracic levocurvature. Sagittal alignment is normal. Mild disc height loss at several levels in the midthoracic spine. Multilevel moderate to severe disc height loss in the mid to lower lumbar spine along with severe left-sided lower lumbar predominant facet osteoarthritis. Mild bilateral sacroiliac osteoarthritis. Cholecystectomy clips in right upper quadrant. IMPRESSION: 1. 15 degrees lumbar dextroscoliosis with moderate to severe spondylosis. Mild spondylosis in the mid to lower thoracic spine. [id number] Ordering provider: Svetlana Henao APRN History: . pain and bruising post fall 4 days ago . Comparison: None. FINDINGS: BONES: No acute right rib fracture or fracture of the visualized osseous structures. LUNGS: No effusions or infiltrates. No pneumothorax. SOFT TISSUES: Normal. IMPRESSION: No right rib fracture (Note: subtle/nondisplaced rib fractures can be occult on plain films and if there is continued clinical suspicion for rib fracture, recommend follow up CT chest). Critical Care Time Critical Care Time Critical Care Time: No Discharge Plan Discharge Clinical Impression: Abrasion, History of fall Contusion of back Qualifiers: Encounter type: initial encounter Laterality: right Qualified Code(s): S20.221A - Contusion of right back wall of thorax, initial encounter Patient Disposition: Home Condition: Stable Instructions: Antibiotic Form, Contusion in Adults (ED), Abrasion (ED) Additional Instructions: Keep the abrasion clean and dry. Wash with warm soapy water twice daily. Apply scant amount of bacitracin Apply ice every 2-3 hours for 15-20 minutes for the bruise. Take Tylenol as needed for pain Follow-up with primary care provider both for follow-up of your fall and for a blood pressure check. Today your blood pressure was 158/65. For new or worsening symptoms please go directly to the emergency room Patient Language: [place] Citizen Prescriptions: No Action metoprolol succinate 25 mg tablet extended release 24 hr PO vitamin B complex [B Complex-Vitamin B12] Tablet 1 tablet PO DAILY multivitamin [Daily Multi-Vitamin] Tablet 1 tablet PO DAILY sertraline [Zoloft] 50 mg tablet 150 mg PO DAILY Qty: 270 1RF albuterol sulfate [Ventolin HFA] 90 mcg/actuation Hfa Aerosol Inhaler 2 puff INHALATION QID fluticasone propionate 50 mcg/actuation spray,suspension 2 spray NASAL BID Qty: 15.8 3RF Rx Instructions: administer into each nostril ipratropium bromide 21 mcg (0.03 %) spray,non-aerosol 2 spray intranasal TID Qty: 90 0RF Rx Instructions: administer into each nostril. Aim back/up/out pantoprazole 40 mg tablet,delayed release (/EC) 40 mg PO BID Qty: 180 1RF budesonide-formoterol [Symbicort] 160-4.5 mcg/actuation HFA aerosol inhaler See Rx Instructions .ROUTE .COMPLEX Qty: 10.2 5RF Dose Instruction: INHALE 2 PUFFS BY MOUTH EVERY 12 HOURS. Rx Instructions: INHALE 2 PUFFS BY MOUTH EVERY 12 HOURS. albuterol sulfate 2.5 mg /3 mL (0.083 %) solution for nebulization 2.5 mg inhalation Q6H PRN (Reason: shortness of breath or wheezing) 30 Days Qty: 360 2RF Follow-up/Referrals: PHYSICIAN,RN TELEPHONE TRIAGE [Primary Care Provider] - Time of Disposition: 12:06
== END 2024-08-29 12:15 | disposition home or self-care (01) ==
PROVIDERS: Emergency Provider Nurse Practitioner
DX: S20.411A Abrasion of right back wall of thorax, initial encounter (principal); S20.221A Contusion of right back wall of thorax, initial encounter; W19.XXXA Unspecified fall, initial encounter; F17.210 Nicotine dependence, cigarettes, uncomplicated; I10 Essential (primary) hypertension; J45.909 Unspecified asthma, uncomplicated; M17.0 Bilateral primary osteoarthritis of knee; F32.A Depression, unspecified; F41.9 Anxiety disorder, unspecified; Z85.3 Personal history of malignant neoplasm of breast; Z86.718 Personal history of other venous thrombosis and embolism; Z86.711 Personal history of pulmonary embolism
CPT/HCPCS: 71101; 72080; 99214; G0463

== ENCOUNTER 2024-10-22 13:46 | Emergency (ER) | payer MEDICARE, OTHER, SELFPAY ==
--- NOTE | ~2024-10-22 | XR_ITS ---
EXAMINATION: XR chest 2V DATE: 10/22/2024 14:27 INDICATION: Cough and weakness TECHNIQUE: PA and lateral views of the chest were obtained. COMPARISON: Chest radiograph and CT dated 01/02/2024 FINDINGS: The lungs are clear with no focal airspace opacities, pulmonary edema, pleural effusion or pneumothorax. The cardiomediastinal silhouette is normal. Mild thoracic spondylosis. IMPRESSION: 1. No acute cardiopulmonary disease. Reviewed, dictated and finalized at location A.
[2024-10-22 13:57] VITALS: BP 152/71; PULSE 81; RESP 14; TEMP 36.3; O2SAT 97
--- NOTE | 2024-10-22 14:17 | ED.WEAKNESS ---
HPI - Weakness General Chief complaint: Upper Respiratory Infection Stated complaint: COUGH/CONGESTION/WEAKNESS Time Seen by Provider: 10/22/24 14:18 Source: patient Mode of arrival: ambulatory Limitations: no limitations History of Present Illness HPI Narrative: 89-year-old female with a history of CHF, bilateral lymph edema, and COPD presented for multiple complaints today. Pt complaint of generalized weakness and falling intermittently over the past few months. Also Reports runny nose and cough, and shortness of breath with exertion. Endorses she can walk from one room to another in the house and feel SOB. Also reports occasional palpitations, increased stress and depression since her . Pt also says today and yesterday she had black stools. Pt states she contacted her PCP yesterday who advised a CXR, but says she 'was not mentally available' to go yesterday. Denies chest pain, abdominal pain, n/v/d/f/c. She is accompanied by a friend/caregiver. Related Data Home Medications ?Medication ?Instructions ?Recorded ?Confirmed ?Last Taken ?Type albuterol sulfate 90 mcg/actuation 2 puff inhalation QID 03/16/23 08/08/24 Unknown History aerosol inhaler (Ventolin HFA) multivitamin (Daily Multi-Vitamin 1 tablet PO DAILY 04/14/23 08/08/24 Unknown History tablet) vitamin B complex (B 1 tablet PO DAILY 04/14/23 08/08/24 Unknown History Complex-Vitamin B12 tablet) metoprolol succinate 25 mg mg PO 08/29/24 Unknown History tablet,extended release 24 hr Allergies Allergy/AdvReac Type Severity Reaction Status Date / Time lisinopril Allergy Intermediate Hives Verified 10/22/24 14:00 codeine Allergy Unknown Unknown- Verified 10/22/24 14:00 UNABLE TO RECAL Review of Systems Review of Systems: ROS per HPI All systems reviewed & are unremarkable except as noted in HPI and below PMFSH Past Medical History Medical History Pancreatitis History of esophageal dilatation Nonallergic rhinitis Refusal of blood transfusions as patient is Worship DVT (deep venous thrombosis) Chronic anticoagulation GI bleed Pulmonary embolism Chronic hyponatremia Diastolic dysfunction Asthma Hypertension Anemia Adenomatous colon polyp EVELYN (obstructive sleep apnea) Insomnia Port-A-Cath in place (~2018) Chronic sinusitis Degenerative arthritis of knee, bilateral Depression Osteoarthritis of right knee (Unknown) Anxiety Estrogen receptor positive status (ER+) Iron deficiency anemia due to chronic blood loss 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, estrogen receptor positive Surgical History Surgical History History of hysterectomy History of cataract extraction with lens replacement History of bladder surgery Bladder tie up x2 History of cholecystectomy S/P nasal surgery History of right mastectomy History of right knee surgery History of hernia repair Family History Family History Father Family history of diabetes mellitus in first degree relative Family history of coronary artery disease Patient's father is in good health Mother Family history of lung cancer Sibling Family history of lung cancer Family history of malignant neoplasm of brain, Onset Age: 60 Other Diabetes mellitus Family history of cardiovascular disease Family history of kidney disease Social History Social History Social History: Surrogate medical decision maker: Urbano Bailey, son. Code status: Full code. Smoking packs per day: 0.5 Smoking cigarettes per day: 10.0 Years smoked: 20 Smoking pack-years: 10.00 Smoking status: Never smoker Second hand tobacco smoke exposure: No Additional smoking assessment comments: STATES <PK/DAY/3YRS Alcohol intake: current Drinks per week: 3 Alcohol use details: DRINK Substance use: never Substance use type: does not use Do You Feel Safe in your Home?: Yes Lack of Transportation: No Lack of Food: Never True Current Housing: I Have Housing Concerned About Future Housing: No Difficulty Paying Gas/Electric Bills: No Difficulty Paying for Meds: No Currently Unemployed: No Education: High School Diploma/GED Difficulty w/ Childcare or Family Care: No Living arrangements: with family Additional living arrangements comments: LIVES WITH SPOUSE [facility] Occupation/Education: retired Spiritual care concerns: No Agree to blood products: No Comments At time of signature, I have reviewed and agree with nursing past medical, surgical, social and family history unless otherwise noted. Please see nursing chart for further information. There is no relevant family history pertinent to the presenting complaint Exam Narrative: GENERAL: Well-appearing, in no acute distress. EYES: EOMI. No redness or drainage. Conjunctivae normal. ENT: Mucous membranes pink and moist. No rhinorrhea. TMs normal bilaterally. Throat normal. Uvula midline. NECK: Normal AROM. Supple. CHEST: No respiratory distress. Lungs clear to all chirinos. 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 HEART: Regular rate and rhythm. No murmur appreciated. ABDOMEN: Soft, nontender, nondistended, normal active bowel sounds. EXTREMITIES: Normal range of motion. Chronic lymphedema, wrapped. Left thumb swelling and bruising. SKIN: Warm, dry, no rash. Capillary refill normal. Normal skin turgor. NEURO: Alert and oriented x3. Gait steady. PSYCH: Normal affect. Course Course Emergency Course: Patient is aware of diagnosis, understands and agrees to treatment plan. Anticipatory guidance given. Patient agrees to follow-up as directed and is aware of reasons to seek care at the emergency department. Portions of this record may have been created with voice recognition software Level of Care: Express Care Visit Vital Signs Vital signs: Vital Signs Temperature 97.4 F L 10/22/24 13:57 Pulse Rate 81 10/22/24 13:57 Respiratory Rate 14 10/22/24 13:57 Blood Pressure 152/71 H 10/22/24 13:57 Pulse Oximetry 97 10/22/24 13:57 Oxygen Delivery Room Air 10/22/24 13:57 Temperature 97.4 F L 10/22/24 13:57 Pulse Rate 81 10/22/24 13:57 Respiratory Rate 14 10/22/24 13:57 Blood Pressure 152/71 H 10/22/24 13:57 Pulse Oximetry 97 10/22/24 13:57 Oxygen Delivery Room Air 10/22/24 14:06 Transfer Transfered to: Other ([facility]) Transportation: Other (Private vehicle) Transfer rationale: Pt is agreeable to transfer. Requests transfer to [facility] via private vehicle. Risks of transportation reviewed with pt including injury, worsening of condition and . v/u. Friend will be driving pt; Report called to hospital, spoke with Michela COFFEY, Dr Acosta , accepting physician. Pt is in stable condition at time of transfer. Advised to remain NPO and go directly to the hospital. MDM - Weakness MDM Narrative Medical decision making narrative: Patient with reports of weakness, fatigue, falls at home, shortness of breath with exertion, and cough along with black stools. Review chest x-ray with patient. Advised ER transfer. Imaging Data Radiologist's impression: Patient: Tatianna Bailey : 1935 MR#: [id number] Age: 89 Acct:[id number] Loc: [facility] ADM Date: 10/22/24Attending Dr: EXAMINATION: XR chest 2V DATE: 10/22/2024 14:27 INDICATION: Cough and weakness TECHNIQUE: PA and lateral views of the chest were obtained. COMPARISON: Chest radiograph and CT dated 01/02/2024 FINDINGS: The lungs are clear with no focal airspace opacities, pulmonary edema, pleural effusion or pneumothorax. The cardiomediastinal silhouette is normal. Mild thoracic spondylosis. IMPRESSION: 1. No acute cardiopulmonary disease. Discharge Plan Discharge Clinical Impression: Shortness of breath on exertion, Black stool Patient Disposition: Acute Care Hospital Condition: Stable Patient Language: [place] Islander Prescriptions: No Action metoprolol succinate 25 mg tablet extended release 24 hr PO vitamin B complex [B Complex-Vitamin B12] Tablet 1 tablet PO DAILY multivitamin [Daily Multi-Vitamin] Tablet 1 tablet PO DAILY sertraline [Zoloft] 50 mg tablet 150 mg PO DAILY Qty: 270 1RF albuterol sulfate [Ventolin HFA] 90 mcg/actuation Hfa Aerosol Inhaler 2 puff INHALATION QID fluticasone propionate 50 mcg/actuation spray,suspension 2 spray NASAL BID Qty: 15.8 3RF Rx Instructions: administer into each nostril ipratropium bromide 21 mcg (0.03 %) spray,non-aerosol 2 spray intranasal TID Qty: 90 0RF Rx Instructions: administer into each nostril. Aim back/up/out pantoprazole 40 mg tablet,delayed release (DR/EC) 40 mg PO BID Qty: 180 1RF budesonide-formoterol [Symbicort] 160-4.5 mcg/actuation HFA aerosol inhaler See Rx Instructions .ROUTE .COMPLEX Qty: 10.2 5RF Dose Instruction: INHALE 2 PUFFS BY MOUTH EVERY 12 HOURS. Rx Instructions: INHALE 2 PUFFS BY MOUTH EVERY 12 HOURS. albuterol sulfate 2.5 mg /3 mL (0.083 %) solution for nebulization 2.5 mg inhalation Q6H PRN (Reason: shortness of breath or wheezing) 30 Days Qty: 360 2RF Follow-up/Referrals: Lien Oseguera MD [Primary Care Provider, Pulmonology] Time of Disposition: 15:29
== END 2024-10-22 15:27 | disposition short-term general hospital (02) ==
PROVIDERS: Emergency Provider Nurse Practitioner Family; PCP Internal Medicine Critical Care Medicine
DX: R06.09 Other forms of dyspnea (principal); R19.5 Other fecal abnormalities; I11.0 Hypertensive heart disease with heart failure; I50.9 Heart failure, unspecified; J44.9 Chronic obstructive pulmonary disease, unspecified; M17.0 Bilateral primary osteoarthritis of knee; F41.9 Anxiety disorder, unspecified; F32.A Depression, unspecified; Z86.718 Personal history of other venous thrombosis and embolism; Z86.711 Personal history of pulmonary embolism; Z85.3 Personal history of malignant neoplasm of breast; Z90.11 Acquired absence of right breast and nipple
CPT/HCPCS: 71046; 99213; G0463

== ENCOUNTER 2024-11-04 12:30 | Outpatient (RCR) | payer MEDICARE, OTHER, SELFPAY ==
--- NOTE | 2024-08-10 16:16 | OTOPEVAL1 ---
Assessment and note entered by Ann-Marie Salgado OT Evaluation Information Assessment Status Evaluation Diagnosis lymphedema ICD-10 Condition Codes (OT) Lymphedema I89.0 Onset 2018 Subjective Information Pt. reports onset of BLE swelling after breast cancer treatment in 2018. Pt. received chemotherapy treatments. Pt. reports wearing LE compression garments, but that they are difficulty to put on, having tried zip on garments which don 't address foot swelling. Pt. ambulates with cane, and is independent and active, reporting enjoying swimming in the summer. OT Evaluation Pain Score 0: Self Report Assessment OT Clinical Summary Pt. is 88 year old F, presenting with Lymphedema diagnosis with symptoms consistent with Stage 2 lymphedema including persistent swelling, with fibrotic and firm tissue which does not resolve spontaneously or with elevation alone, in bilateral LE greatest at ankles and feet. Pt. reports difficulty with management of condition including donning current below knee compression socks. Pt. reports and demonstrates decreased mobility and falls. Pt. will benefit from manual lymph drainage techniques and use of compression pump, with fit and recommendations for adjustable reduction kit and compression garments, to allow for reduction of limb size in intensive phase of treatment, pt. declining interest in short stretch compression bandaging due to wear and management limiting swimming and bathing during intensive phase of treatment in summer months. Plan of Care Interventions Therapeutic Exercise,Manual Therapy,Therapeutic Activities,Other Other Interventions pneumatic compression pump OT Services Indicated Yes Treatment Frequency and 2 x/week for 10 weeks Duration These treatments will address the objective and functional deficits as defined above. The patient will be advanced safely and appropriately in order for the patient to progress towards his/her prior level of function. Additional exercises will be introduced and as well as a comprehensive home exercise program upon discharge, if needed, ?to ensure carryover of functional gains achieved in the clinic. This treatment plan has been reviewed and agreement upon by the patient.
--- NOTE | 2024-08-10 16:16 | OPREHPOC ---
Outpatient Therapy Plan of Care This is a Multidisciplinary Plan of Care that may contain components documented by all disciplines (PT, OT, and ST.) OT Problem 1 OT Problem #1 Knowledge Deficit OT Goal 1 Goal / Goal Update Pt. will demonstrate independence in HEP Pt. will demonstrate independence in self manual lymph drainage sequence Pt. will demonstrate independence and knowledge of routines and tasks for maintenance phase of lymphedema treatment Target Visit 10 OT Problem 2 OT Problem #2 Impaired Balance OT Goal 1 Goal / Goal Update Pt. will demonstrate improved balance as evidenced by decreased time to complete TUG assessment to < 20 seconds, and report no falls during treatment Target Visit 10 OT Problem 3 OT Problem #3 Impaired Lymphatic System OT Goal 1 Goal / Goal Update Pt. will display combined volume reduction in BLE of 50 cm Target Visit 20
--- NOTE | 2024-08-22 12:55 | PCOTNOTE ---
Pt. did not arrive for OP therapy appointment. Called Pt. who reports she arrived at incorrect doctor's appointment. Pt. will not attend appointment today, but is aware and confirming appointment on Thursday08/26/24
--- NOTE | 2024-09-19 13:50 | PCOTNOTE ---
starting Thursday September 26, 2024. Pt. will be seen 3x/week for 60 minutes to incorporate short stretch compression bandage wrapping into treatment.
--- NOTE | 2024-10-06 17:01 | OTOPPROG ---
Assessment and note entered by Ann-Marie Salgado OT Progress Information Assessment Status Progress Diagnosis lymphedema ICD-10 Condition Codes (OT) Lymphedema I89.0 Onset 2017 Subjective Information Pt. reports she is excited to have this whole process over with, but you gotta do what you gotta do. Pt. reports I haven't seen my ankles like this in years! Assessment OT Clinical Summary Pt. is 88 year old F, presenting for reevaluation for treatment for signs and symptoms of Stage 2 lymphedema including persistent swelling, with fibrotic and firm tissue which does not resolve spontaneously or with elevation alone, in bilateral LE greatest at ankles and feet. Pt. initially not agreeable to short stretch compression bandage wrapping, having since changed her mind, now having BLE below knees wrapped resulting in R LE reduction of 30.1 cm and L LE reduction of 29.75. Pt. continues to display mild swelling and fibrotic tissue in bilateral ankles and feet, and will benefit from continued participation in intensive phase of complete decongestive treatment including manual lymph drainage, use of compression pump, and short stretch compression bandaging, as well as measurement and ordering of 30-50 mmHg compression garments and AE to facilitate eventual transition to maintenance phase and home management of condition. Plan of Care Interventions Therapeutic Exercise,Manual Therapy,Therapeutic Activities,Other Other Interventions pneumatic compression pump OT Services Indicated Yes Treatment Frequency and 3 x/week for 10 visits Duration These treatments will address the objective and functional deficits as defined above. The patient will be advanced safely and appropriately in order for the patient to progress towards his/her prior level of function. Additional exercises will be introduced and as well as a comprehensive home exercise program upon discharge, if needed, ?to ensure carryover of functional gains achieved in the clinic. This treatment plan has been reviewed and agreement upon by the patient.
--- NOTE | 2024-11-04 17:00 | OTOPPROG ---
Assessment and note entered by Ann-Marie Salgado OT Evaluation Information Assessment Status Evaluation Diagnosis lymphedema ICD-10 Condition Codes (OT) Lymphedema I89.0 Onset 2018 Subjective Information Pt. reports she is excited to go on vacation, and is working on a plan to maintain her lymphedema and compression while on vacation. Pt. states, that I've had this for years, really, it was very depressing. I feel like now I look correction decent. I'm happy with it, ya know. I think I can maintain it, if I do what you say. Assessment OT Clinical Summary Pt. is 88 year old F, presenting for progress note for treatment for signs and symptoms of Stage 2 lymphedema including persistent swelling, with fibrotic and firm tissue which does not resolve spontaneously or with elevation alone, in bilateral LE greatest at ankles and feet. Pt. initially not agreeable to short stretch compression bandage wrapping, having since changed her mind, and completed short stretch compression bandaging with R LE reduction measuring 39.25 cm, and L LE measuring 37 cm, up to 44 cm from heel, compared to initial evaluation measurements. Pt. continues to display intermittent mild swelling and fibrotic tissue in bilateral ankles and feet, and will benefit from continued participation in intensive phase of complete decongestive treatment including manual lymph drainage, use of compression pump, and now managing with velcro compression garments while awaiting custom compression garments to facilitate eventual transition to maintenance phase, including donning /doffing techniques for garments , use of AE, and reinforcement of home management of condition. Plan of Care Interventions Therapeutic Exercise,Manual Therapy,Therapeutic Activities,Self-Care/Home Management,Other Other Interventions pneumatic compression pump OT Services Indicated Yes Treatment Frequency and 2 x/ week 6 visits Duration These treatments will address the objective and functional deficits as defined above. The patient will be advanced safely and appropriately in order for the patient to progress towards his/her prior level of function. Additional exercises will be introduced and as well as a comprehensive home exercise program upon discharge, if needed, ?to ensure carryover of functional gains achieved in the clinic. This treatment plan has been reviewed and agreement upon by the patient.
--- NOTE | 2024-11-04 17:00 | OPREHPOC ---
Outpatient Therapy Plan of Care This is a Multidisciplinary Plan of Care that may contain components documented by all disciplines (PT, OT, and ST.) OT Problem 1 OT Problem #1 Knowledge Deficit OT Goal 1 Goal / Goal Update Pt. will demonstrate independence in HEP Pt. will demonstrate independence in self manual lymph drainage sequence Pt. will demonstrate independence and knowledge of routines and tasks for maintenance phase of lymphedema treatment Progress 10/06 1) goal partially met, continue 2) goal not met, continue Progress 11/04 1) goal met, continue for continuity 2) partially met, continue 3) partially met, continue Target Visit 30 Progress Partially Met OT Problem 2 OT Problem #2 Impaired Balance OT Goal 1 Goal / Goal Update Pt. will demonstrate improved balance as evidenced by decreased time to complete TUG assessment to < 20 seconds, and report no falls during treatment Progress note 11/04 1) Goal not met, patient has experienced a fall, continue Target Visit 30 Progress Not Met OT Problem 3 OT Problem #3 Impaired Lymphatic System OT Goal 1 Goal / Goal Update Pt. will display combined volume reduction in BLE of 50 cm Progress note 10/06 1) goal met, pt. volume reduction bilaterally 59 cm, update goal Updated Goal: Pt. will display combined volume reduction in BLE of >65 cm and demonstrate maintenance over remainder of treatment Progress note 11/04 1) Goal partially met, pt. displays volume reduction of 76.25 cm, continue goal for maintenance during remainder of treatment Target Visit 30 Progress Partially Met
== END 2024-11-08 23:59 | disposition home or self-care (01) ==
LOC: ANHOT 12:30
PROVIDERS: Visit Provider Podiatrist Foot & Ankle Surgery
DX: I89.0 Lymphedema, not elsewhere classified (principal)
CPT/HCPCS: 29581; 97016; 97110; 97140; 97165; 97530; 97535

== ENCOUNTER 2024-11-30 09:54 | Outpatient (CLI) | payer MEDICARE, OTHER, SELFPAY ==
--- NOTE | ~2024-11-30 | CT_ITS ---
EXAMINATION: CT abdomen pelvis w con DATE: 11/30/2024 10:18 INDICATION: Abdominal and pelvic swelling. TECHNIQUE: Computed tomography (CT) of the abdomen and pelvis was performed with 100 mL Omnipaque 350 intravenous contrast. Automated exposure control and iterative reconstruction technique were employed. The dose-length product was 638.12 mGy-cm. COMPARISON: CT 03/18/2023 FINDINGS: The visualized portions of the lung bases demonstrate mild atelectasis. There are small pleural effusions. The heart size is normal. No pericardial effusion. The liver is normal. There are changes of cholecystectomy. The common duct is dilated to 12 mm, which is chronic and likely not clinically significant. The spleen, pancreas, adrenal glands, and left kidney are normal. There is mild right hydronephrosis and hydroureter. There are surgical clips in the proximal ureter. The bladder is distended. There are no dilated loops of bowel. The appendix is normal. There are no pathologically enlarged lymph nodes. There is no free intraperitoneal fluid. There is severe lumbar spondylosis. Lumbar dextroscoliosis is noted. IMPRESSION: 1. Small pleural effusions. 2. Mild right hydronephrosis and hydroureter. Distended bladder. Reviewed, dictated and finalized at location E.
[2024-11-30 10:14] LABS: Estimated Glomerular Filt Rate 52
--- OUTSIDE RECORDS SUMMARY | 2024-11-30 11:25 | XMS_ITS | Data Portability ---
Author Organization [place] - [facility], [facility] Address [address] [facility] [address] [place] [address] Assessment No assessment recorded. Plan of Treatment Reminders Order Date Submit Date Provider Last Modified By Organization Details Last Modified Time Details Appointments Follow Up 15 2024 09:45A Sophia Rodriguez MD Not available Not available Not available Lab BMP, serum or plasma 2024 025 [facility] (Lab), [address] [place] [address], [address], 2024 01:51:26 BNP (B-type natriuret ic peptide), serum or plasma 2024 025 [facility] (Lab), [address] [place] [address], [address], 08/04/2024 04:03:35 BMP, serum or plasma 2024 025 [facility] (Lab), [address] [place] [address], [address], 09/02/2024 17:47:31 magnesium , serum or plasma 2024 025 [facility] (Lab), [address] [place] [address], [address], 08/04/2024 04:03:35 TSH, serum or plasma 2024 025 [facility] (Lab), [address] [place] [address], [address], 08/04/2024 04:03:35 BMP, serum or plasma 2024 025 [facility], [facility] [place], [address], 11/06/2024 05:01:02 Referral None recorded. Procedures None recorded. Surgeries None recorded. Imaging CT, abdomen + pelvis, w/ contrast 2024 025 [facility], [facility] [address], [address], 11/16/2024 04:37:12 bone density 2024 025 [facility], [facility]0 [facility] [address], [place], [address], 11/16/2024 04:37:11 Medication Orders Trelegy Ellipta 100 mcg-62.5 mcg-25 mcg powder for inhalatio n 2024 025 [facility], [address] [facility], [place], [address], 11/02/2024 12:28:59 Pepcid 20 mg tablet 2024 025 [email or web address] [address], [address], [place], [address], 11/29/2024 14:11:09 ondansetr on 4 mg disintegr ating tablet 2024 025 [facility] [id number] [facility], [address], [place], [address], 11/02/2024 12:29:00 bumetanid e 1 mg tablet 2024 025 [facility] [address] [facility], [address], [place], [address], 11/02/2024 12:28:59 bumetanid e 1 mg tablet 2024 025 J[facility] [address] [facility], [address] [facility], [place], [address], 09/02/2024 13:24:40 potassium chloride ER 10 mEq tablet,ex tended release 2024 025 [email or web address] [facility] [address] [facility], [address] [facility], [place], [address], 09/27/2024 14:40:47 bumetanid e 1 mg tablet 2024 025 JAN [facility] [id number] [facility], [address] [place], [address], 07/28/2024 11:14:40 metolazon e 2.5 mg tablet 2024 025 J[facility] [address] [facility], [address] [place], [address], 09/02/2024 13:19:21 bumetanid e 1 mg tablet 2024 025 [email or web address] 7 [facility] [address] [facility], [facility] [place], [address], 04/27/2024 12:42:36 bumetanid e 1 mg tablet 2023 024 JAN [facility] [address] [facility], [facility] [place], [address], 01/26/2024 16:39:45 sertralin e 100 mg tablet 2023 024 [email or web address] 7 [facility] [address] [facility], [facility] [place], [address], 04/27/2024 12:32:43 Patient TargetsNo targets recorded. Patient Instructions Encounter Date Encounter Id Patient Instructions Last Modified By Organization Details Last Modified Time 01/26/2024 [id number] learning about asthma [email or web address] Not available 01/26/2024 18:33:46 sleep apnea: car e instructions Not available 01/26/2024 18:33:46 learning about mood disorders [email or web address] Not available 01/26/2024 16:45:10 iron deficiency anemia: care instructions [email or web address] Not available 01/26/2024 18:33:46 I spent a total of _45 minutes (excluding separately reportable procedure time ) in care of this patient. [email or web address] Not available 01/26/2024 16:40:28 04/27/2024 [id number] learning about asthma [email or web address] Not available 04/27/2024 12:42:36 sleep apnea: car e instructions Not available 04/27/2024 12:42:36 learning about mood disorders [email or web address] Not available 04/27/2024 12:42:36 iron deficiency anemia: care instructions [email or web address] Not available 04/27/2024 12:42:36 I spent a total of ___43__ minutes (excluding separately reportable procedure time ) in care of this patient. Not available 04/27/2024 12:41:17 07/28/2024 [id number] learning about asthma [email or web address] Not available 07/28/2024 11:14:36 sleep apnea: car e instructions [email or web address] Not available 07/28/2024 11:14:36 learning about mood disorders [email or web address] Not available 07/28/2024 11:14:36 iron deficiency anemia: care instructions [email or web address] Not available 07/28/2024 11:14:36 I spent a total of _34 minutes (excluding separately reportable procedure time ) in care of this patient. [email or web address] Not available 07/28/2024 11:13:56 09/02/2024 [id number] learning about asthma [email or web address] Not available 09/02/2024 13:24:37 sleep apnea: car e instructions [email or web address] Not available 09/02/2024 13:24:38 electrolyte imbalance: care instructions Not available 09/02/2024 16:46:02 hyponatremia: care instructions [email or web address] Not available 09/02/2024 16:46:01 learning about mood disorders [email or web address] Not available 09/02/2024 13:24:38 iron deficiency anemia: care instructions [email or web address] Not available 09/02/2024 13:24:37 I spent a total of __33____ minutes (excluding separately reportable procedure time ) in care of this patient. [email or web address] Not available 09/02/2024 13:24:22 11/02/2024 [id number] learning about asthma [email or web address] Not available 11/02/2024 12:28:54 nausea and vomiting: care instructions [email or web address] Not available 11/02/2024 12:28:54 sleep apnea: car e instructions [email or web address] Not available 11/02/2024 12:28:54 electrolyte imbalance: care instructions [email or web address] Not available 11/02/2024 12:28:54 hyponatremia: care instructions [email or web address] Not available 11/02/2024 12:28:54 learning about mood disorders [email or web address] Not available 11/02/2024 12:28:54 iron deficiency anemia: care instructions [email or web address] Not available 11/02/2024 12:28:54 I spent a total of _34 minutes (excluding separately reportable procedure time ) in care of this patient. [email or web address] Not available 11/02/2024 12:20:50 Reason for Referral None Reported. Results Created Date Observation Date Name Description Value Unit Range Abnormal Flag Note LastModifiedBy Organization Detail LastModifiedTime 09/06/1909/06/2024 BASIC METAB OLIC PANEL glucose 92 mg/dL 65-99 normal Fasti ng refer ence inter erika Not Available [facility] [address] [place], [address], 2024 01:51:22 09/06/1909/06/2024 BASIC METAB OLIC PANEL urea nitrogen (BUN) 13 mg/dL 7-25 normal Not Available [facility] [address] [place], [address], 2024 01:51:22 09/06/192025 BASIC METAB OLIC PANEL creatinine 1.00 mg/dL 0.60-0 .95 high Not Available [address], [address], 2024 01:51:22 09/06/19 25 2024 BASIC METAB OLIC PANEL eGFR 54 mL/mi n/1.7 3m2 > or = 60 low Not Available [address], [address], 2024 01:51:22 09/06/19 25 2024 BASIC METAB OLIC PANEL BUN/creatini ne ratio 13 (calc ) 6-22 normal Not Available [address], [address], 2024 01:51:22 09/06/19 25 2024 BASIC METAB OLIC PANEL sodium 128 mmol/ L 135-14 6 low Not Available [address], [address], 2024 01:51:22 09/06/19 25 2024 BASIC METAB OLIC PANEL potassium 3.5 mmol/ L 3.5-5. 3 normal Not Available [address], [address], 2024 01:51:22 09/06/19 25 2024 BASIC METAB OLIC PANEL chloride 87 mmol/ L 98-110 low Not Available [address], [address], 2024 01:51:22 09/06/19 25 2024 BASIC METAB OLIC PANEL carbon dioxide 34 mmol/ L 20-32 high Not Available [address], [address], 2024 01:51:22 09/06/19 25 2024 BASIC METAB OLIC PANEL calcium 9.2 mg/dL 8.6-10 .4 normal Not Available [facility] [address] [place] [address], [address], 2024 01:51:22 Result Notes None recorded. Problems Name Problem SNOMED Code Status Onset Date Resolution Date Notes Provider Name and Address Organization Details Recorded Time Chronic diastolic heart failure 614857050 Active 2023 Micheal Rodriguez MD [address], [place], [address], [facility] 16:38:50 Depressive disorder 76062398 Active 2023 Micheal Rodriguez MD [address], [place], [address], [facility] 16:43:10 Asthma 383739374 Active 2023 Micheal Rodriguez MD [address], [place], [address], [facility] 4 18:20:40 Obstructive sleep apnea syndrome 52612291 Active 2023 Micheal Rodriguez MD [address], [place], [address], [facility] 4 18:21:15 Chronic rhinosinusi tis 806487607 Active 2023 Micheal Rodriguez MD [address], [place], [address], [facility] 4 18:21:56 Iron deficiency anemia 51461277 Active 2023 Micheal Rodriguez MD [address], [place], [address], [facility] 4 18:22:47 Adenomatous polyp of colon 071060333 Active 2023 Micheal Rodriguez MD [address] [facility] [address], [place], [address], [facility] 4 18:27:15 Bilateral osteoarthri tis of knees 9558697582895 07 Active 2023 Micheal Rodriguez MD [address] [facility] [address], [place], [address], [facility] 4 18:27:21 Acute respiratory failure 36143195 Active 2024 [facility] 12:12:05 Acute hypoxemic respiratory failure 484740738 Active 2024 Micheal Rodriguez MD [address] [facility] [address], [place], [address], [facility] 5 12:31:27 Influenza caused by Influenza A virus 863997071 Active 2024 Micheal Rodriguez MD [address] [facility] [address], [place], [address], [facility] 5 12:31:32 Acute severe exacerbatio n of asthma 992052964 Active 2024 Micheal Rodriguez MD [address] [facility] [address], [place], [address], [facility] 5 12:33:27 Lymphedema 962397070 Active 2024 Micheal Rodriguez MD [address] [facility] [address], [place], [address], [facility] 5 11:07:48 Contusion of back 60793482 Active 2024 Micheal Rodriguez MD [address] [facility] [address], [place], [address], [facility] 5 13:14:44 Hyponatremi a 08889850 Active 2024 Micheal Rodriguez MD [address] [facility] [address], [place], [address], [facility] 5 16:45:10 Recurrent falls 158824704 Active 2024 Micheal Rodriguez MD [address] [facility] [address], [place], [address], [facility] 5 12:12:27 Osteopenia 526890418 Active 2024 Micheal Rodriguez MD [address] [facility] [address], [place], [address], [facility] 5 12:19:00 Nausea 880858033 Active 2024 Micheal Rodriguez MD [address] [facility] [address], [place], [address], [facility] 5 12:19:32 Finding of abdomen 358329866 Active 2024 Micheal Rodriguez MD [address] [facility] [address], [place], [address], [facility] 5 12:26:40 Chronic constipatio n 592651687 Active 2024 Micheal Rodriguez MD [address] [facility] [address], [place], [address], [facility] 5 12:28:25 Problem Notes None recorded. Medical Equipment None Reported. Allergies Allergen ID Allergen Name Allergen Category Reaction Reaction Severity Criticality Documentation Date Start Date Code Code System Note Provider Name and Address Organization Details Recorded Time 1443 codeine medicatio n hives Not available Not available 04/27/20242018 2670 RxNorm Ansley Thayer [facility] 5 12:11:59 Medications Name Sig Start Date Stop Date Status Note LastModified by Organization Details LastModified Time metolazone 2.5 mg tablet TAKE 1 TABLET BY MOUTH THREE TIMES A WEEK 09/02 completed Not Available Not Available Not Available prednisone 10 mg tablet PLEASE SEE ATTACHED FOR DETAILED DIRECTION S 09/02 completed Not Available Not Available Not Available [...] t Available azithromyci n 250 mg tablet TAKE 2 TABLETS BY MOUTH TODAY, THEN TAKE 1 TABLET DAILY FOR 4 DAYS DIRECTED 09/02 completed Not Available Not Available Not Available [...] completed Not Available Not Available Not Available potassium chloride ER 10 mEq tablet,exte nded release TAKE 1 TABLET BY MOUTH TWICE A DAY 2024 active Not Available Not Available Not Avai lable sulfamethox azole 800 mg-trimetho prim 160 mg tablet 1 {tbl} twice a day by oral route. 10/30 completed Not Available Not Available Not Available acetaminoph en 500 mg tablet 500 mg every 6 hours by oral route. active Not Available Not Available No t Available alprazolam 0.25 mg tablet 09/02 completed Not Available Not Available Not Available famotidine 20 mg tablet TAKE 1 TABLET BY MOUTH EVERY DAY 2024 active Not Available Not Available Not Avai lable exemestane 25 mg tablet TAKE 1 TABLET [...] Not Available Not Available No t Available folic acid 1 mg tablet TAKE 5 [...] Not Available Not Available No t Available ondansetron 4 mg disintegrat ing tablet ALLOW 2 TABLETS TO DISSOLVE ON TOP OF THE TONGUE TWICE A DAY active Not Available Not [...] BY MOUTH EVERY DAY NEEDED FOR ANXIETY 09/02 completed Not Available Not Available Not Available Symbicort 160 mcg-4.5 mcg/actuati on HFA aerosol inhaler INHALE 2 PUFFS BY MOUTH EVERY 12 HOURS. active Not Available Not Available No t Available Mucus DM 30 mg-600 mg tablet,exte nded release TAKE 1 TABLET BY MOUTH ONCE DAILY FOR COUGH/CON GESTION 01/25 completed Not Available Not Available Not Available Trelegy Ellipta 100 mcg-62.5 mcg-25 mcg powder for inhalation INHALE 1 PUFF INTO THE LUNGS EVERY DAY FOR 30 DAYS active Not Available Not Available No t Available Vitals Date Recorded Body height Body temperature Body mass index (BMI) Body weight Heart rate Respiratory rate Oxygen saturation Oxygen saturation in Arterial blood by Pulse oximetry Systolic And Diastolic Provider Name and Address Organization Details Last Updated DateTime 5 162.56 cm 98.1 [degF] 28.5 kg/m2 96902.3 3 g 65 /min 22 /min 92 % 92 % 138/60 mm[Hg] [facility] 5 12:11:32 Date Recorded Body height Body temperature Body mass index (BMI) Body weight Heart rate Respiratory rate Oxygen saturation Oxygen saturation in Arterial blood by Pulse oximetry Systolic And Diastolic Provider Name and Address Organization Details Last Updated DateTime 5 162.56 cm 97.9 [degF] 29.4 kg/m2 54250.3 g 97 /min 22 /min 92 % 92 % 148/70 mm[Hg] [facility] 5 10:40:22 Date Recorded Body height Body temperature Body mass index (BMI) Body weight Heart rate Respiratory rate Oxygen saturation Oxygen saturation in Arterial blood by Pulse oximetry Systolic And Diastolic Provider Name and Address Organization Details Last Updated DateTime 5 162.56 cm 97.3 [degF] 29.5 kg/m2 41929.8 9 g 69 /min 22 /min 97 % 97 % 122/60 mm[Hg] [facility] 5 12:58:55 Date Recorded Body height Body temperature Body mass index (BMI) Body weight Heart rate Respiratory rate Oxygen saturation Oxygen saturation in Arterial blood by Pulse oximetry Systolic And Diastolic Provider Name and Address Organization Details Last Updated DateTime 5 162.56 cm 97.4 [degF] 28.5 kg/m2 44421.3 3 g 60 /min 22 /min 96 % 96 % 136/72 mm[Hg] [facility] 5 11:42:13 Date Recorded Body temperature Body height Body mass index (BMI) Body weight Heart rate Respiratory rate Oxygen saturation Oxygen saturation in Arterial blood by Pulse oximetry Systolic And Diastolic Provider Name and Address Organization Details Last Updated DateTime 4 98.4 [degF] 162.56 cm 29 kg/m2 57557.1 1 g 65 /min 22 /min 95 % 95 % 140/72 mm[Hg] [facility] Th[facility] 4 15:43:35 Social History None [...] 9 completed Micheal Rodriguez MD [address] [facility] [address], [place], [address], [facility] 04/27/2024 12:39:14 Influenza, high-dose, quadrivalent, PF 0 completed MD Damian Franklin[address] [facility] [address], [place], [address], [facility] 04/27/2024 12:39:14 Influenza, adjuvanted, quadrivalent, PF 2 completed Micheal Rodriguez MD [address] [facility] [address], [place], [address], [facility] 04/27/2024 12:39:14 COVID-19, mRNA, LNP-S, PF, 100 mcg/0.5mL dose or 50 mcg/0.25mL dose 1 completed MD Damian Franklin[address] [facility] [address], [place], [address], [facility] 04/27/2024 12:39:14 COVID-19, mRNA, LNP-S, PF, 100 mcg/0.5mL dose or 50 mcg/0.25mL dose 1 completed MD Damian Franklin[address] [facility] [address], [place], [address], [facility] 04/27/2024 12:39:14 COVID-19, mRNA, LNP-S, PF, 100 mcg/0.5mL dose or 50 mcg/0.25mL dose 2 completed MD Lilo Franklin [address] [facility] [address], [place], [address], [facility] 04/27/2024 12:39:14 COVID-19, mRNA, LNP-S, PF, 100 mcg/0.5mL dose or 50 mcg/0.25mL dose 1 completed MD Lilo Franklin [address], [place], [address], [facility] 04/27/2024 12:39:14 COVID-19, mRNA, LNP-S, bivalent, PF, 50 mcg/0.5 mL or 25mcg/0.25 mL dose 2 completed MD Lilo Franklin [facility] [address], [place], [address], [facility] 04/27/2024 12:39:14 COVID-19, mRNA, LNP-S, PF, 50 mcg/0.5 mL 3 completed MD Lilo Franklin [facility] [address], [place], [address], [facility] 04/27/2024 12:39:14 pneumococcal polysaccharide PPV23 9 completed MD Lilo Franklin [facility] [address], [place], [address], [facility] 04/27/2024 12:39:14 influenza, unspecified formulation 2 completed MD Lilo Franklin [facility] [address], [place], [address], [facility] 04/27/2024 12:39:14 influenza, unspecified formulation 4 completed MD Lilo Franklin [facility] [address], [place], [address], [facility] 04/27/2024 12:39:14 influenza, unspecified formulation 3 completed Micheal Rodriguez MD [address] [facility] [address], [place], [address], [facility] 04/27/2024 12:39:15 pneumococcal, unspecified formulation 0 completed Micheal Rodriguez MD [address] [facility] [address], [place], [address], [facility] 04/27/2024 12:39:15 influenza, split (incl. purified surface antigen) 7 completed Micheal Rodriguez MD [address] [facility] [address], [place], [address], [facility] 04/27/2024 12:39:15 Past Encounters Encounter ID Performer Location Encounter Start Date Encounter Closed Date Diagnosis/Indication Diagnosis SNOMED-CT Code Diagnosis ICD10 Code Diagnosis IMO Codes Diagnosis Note [id number] Micheal Rodriguez MD [facility] [address] [facility] [address] [place] [address] 01/26/2024 15:21:07 01/26/2024 16:49:37 Chronic diastolic heart failure 566832407 I50.32 Echo 03/11:ef 60-65Perce ntMild aortic valve sclerosis. Trace TR. Grade 1 diastolic dysfunctio n.Noncompl iant with BumexDiscu ssed fluid restrictio nContinue Bumex 1 mg twice daily Depressive disorder 5597 9007 F32.A on sertraline .will increase to 200 mg dailyon alprazolam prn which was given in the hospital Asthma 780872407 J45.[address] Lafleur symbicort and albuterol prndiscuss ed switching to treleg.she will discuss with dr. Oseguera Obstructiv e sleep apnea syndrome 06347186 G47.[address] Oseguera Chronic rhinosinusitis 120436362 J31.0 Seen ENTOn Flonase and Astelin twice a dayIpratro piumGoing to see slough ENT Iron defic iency anemia 95026434 D50.9 Severe anemia February 2023 with GI bleed due to anticoagul ationRecei [place] iron infusion in the pastFollow s with hematologi st History of malignant neoplasm of breast 517625729 Z85.3 History of breast cancer in 2018Status post right mastectomy On examestane History of thromboembolism 447694752 Z86.718 hx of Venous thrombossB ilateral lower extremity DVT February4Repeat venous duplex 10/09-PE 01/2023was on anticoagul ation but compllicat ed with gi bleed and hence now off History of gastrointestinal bleed 078011714 Z87.19 History of GI bleed February 2023 with severe anemia down to 4Off and do coagulatio n Adenomatou s polyp of colon 922284919 D12.6 Colonoscop y 04/10: Tubular adenoma ascending colon and cecalSees Dr. Cochran Bilateral osteoarthritis of knees 8051725061 [address]0340 M17.0 Preventive procedure 169 655557 Z29.9 Mammogram 06/09Negati veColonosc opy 04/10: Tubular adenoma ascending colon and cecum sees Dr. Alvarez one / 2020: Osteopenia [id number] Micheal Rodriguez MD [facility] [address] [place] [address] 04/27/2024 11:48:39 04/27/2024 12:49:57 Post-discharge follow-up [id number] Z09 Admission Date: 04/12/2024D ischarge Date: 04/17/2024Di agnosis: resp failure, influenza A, asthma exacerbati onmedicati ons reconcille d and reviewed with the patient Acute hypo xemic respiratory failure 459582110 J96.01 neeing bipap 04/12now offalso needed oxygen suppnow off Influenza caused by Influenza A virus 594365024 J09.X2 treated with tamiflu and completed treatment Acute corey re exacerbation of asthma 561630535 J45.901 resovled now Chronic di astolic heart failure 714125022 I50.32 Echo 03/11:ef 60-65Perce ntMild aortic valve sclerosis. Trace TR. Grade 1 diastolic dysfunctio n.Noncompl iant with BumexDiscu ssed fluid restrictio nContinue Bumex 1 mg twice daily Depressive disorder 3548 9007 F32.A on sertraline .will increase to 200 mg daily now back down to 100 mg dailyon alprazolam prn which was given in the hospital Asthma 262655427 J45.[address] Lafleur symbicort and albuterol prndiscuss ed switching to treleg.she will discuss with dr. Oseguera next month Obstructiv e sleep apnea syndrome 90572866 G47.[address] Oseguera Chronic rhinosinusitis 929642211 J31.0 Seen ENTOn Flonase and Astelin twice a daily ipratropiu mGoing to see slu ENT Iron defic iency anemia 48495754 D50.9 Severe anemia February 2023 with GI bleed due to anticoagul ationRecei [place] iron infusion in the pastFollow s with hematologi st History of malignant neoplasm of breast 348742758 Z85.3 History of breast cancer in 2018Status post right mastectomy On examestane which she completed 2023 History of thromboembolism 831086612 Z86.718 hx of Venous thrombossB ilateral lower extremity DVT Februaryepeat venous duplex 10/09-PE 01/2023was on anticoagul ation but complicate d with gi bleed and hence now off History of gastrointestinal bleed 592038011 Z87.19 History of GI bleed February 2023 with severe anemia down to 4Off anticoagul ation Adenomatou s polyp of colon 055224291 D12.6 Colonoscop y 04/10: Tubular adenoma ascending colon and cecalSees Dr. Cochran Bilateral osteoarthritis of knees 1583559917 23800 M17.0 Preventive procedure 169 150507 Z29.9 Mammogram 06/09Negati veColonosc opy 04/10: Tubular adenoma ascending colon and cecum sees Dr. Alvarez one gkwcmpu02/ 2020: Osteopenia [id number] Micheal Rodriguez MD [facility] [address] [place] [address] 07/28/2024 10:31:35 07/28/2024 11:21:00 Chronic diastolic heart failure 891596544 I50.32 Echo 03/11:ef 60-65Perce ntMild aortic valve sclerosis. Trace TR. Grade 1 diastolic dysfunctio n.Noncompl iant with BumexDiscu ssed fluid restrictio nContinue Bumex 1 mg twice dailyrecen tly added on metolazone .weight is up.will add metolazone Depressive disorder 3548 9007 F32.A on sertraline .increased to 200 mg daily now back down to 100 mg dailyon alprazolam prn which was given in the hospital Asthma 307044260 J45.[address] Lafleur symbicort and albuterol prndiscuss ed switching to treleg.she will discuss with dr. Oseguera Obstructiv e sleep apnea syndrome 57706977 G47.[address] Oseguera Chronic rhinosinusitis 984600524 J31.0 Seen ENTOn Flonase and Astelin twice a daily ipratropiu mGoing to see u ENT Iron defic iency anemia 56459483 D50.9 Severe anemia February 2023 with GI bleed due to anticoagul ationRecei [place] iron infusion in the pastFollow s with hematologi st08/10: iron saturation 10%, seeing hematologi st soon History of malignant neoplasm of breast 778058889 Z85.3 History of breast cancer in 2018Status post right mastectomy On examestane which she completed 2023 History of thromboembolism 314235517 Z86.718 hx of Venous thrombossB ilateral lower extremity DVT February4Repeat venous duplex 10/09-PE 01/2023was on anticoagul ation but complicate d with gi bleed and hence now off History of gastrointestinal bleed 231909090 Z87.19 History of GI bleed February 2023 with severe anemia down to 4Off anticoagul ation Adenomatou s polyp of colon 561618785 D12.6 Colonoscop y 04/10: Tubular adenoma ascending colon and cecalSees Dr. Cochran Bilateral osteoarthritis of knees [id number] 34884 M17.0 Preventive procedure 169 028156 Z29.9 Mammogram 06/09Negati ve 07/10: negativeCo lonoscopy 04/10: Tubular adenoma ascending colon and cecum sees Dr. Alvarez one 2019: Osteopenia Lymphedema 415672759 I89 .0 00727 bilateral lower legs [id number] Micheal Rodriguez MD [facility] [address] [facility] [address] [place] [address] 09/02/2024 12:52:05 09/02/2024 13:29:13 Falling injury 879427212 W19.XXXA [id number] a week ago.went to [facility].u rgicare note reviewed.x r ls spne and cxr with no bony injury Contusion of back 542683 03 S20.221A 58957445 noted.due to fall.mecha nical and accidental injury Lymphedema 488992232 I89 .0 64313 bilateral lower legscompre ssion socks Chronic di astolic heart failure 185411690 I50.32 Echo 03/11:ef 60-65 PercentMil d aortic valve sclerosis. Trace TR. Grade 1 diastolic dysfunctio n.Noncompl iant with BumexDiscu ssed fluid restrictio nContinue Bumex 1 mg twice dailyrecen tly added on metolazone .weight is up.added metolazone bmp 08/2024 with na level at 125. K 3.0. bnp 347will recheck bmp today. hold metolazone Depressive disorder 3548 9007 F32.A on sertraline .increased to 200 mg daily now back down to 100 mg dailyon alprazolam prn which was given in the hospital Asthma 973399536 J45.[address] Lafleur symbicort and albuterol prndiscuss ed switching to trelegy.sh e will discuss with dr. Oseguera Obstructiv e sleep apnea syndrome 13112685 G47.[address] 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 Seen ENTOn Flonase and Astelin twice a daily ipratropiu mGoing to see slu ENT Iron defic iency anemia 16757566 D50.9 Severe anemia February 2023 with GI bleed due to anticoagul ationRecei [place] iron infusion in the pastFollow s with hematologi st08/10: iron saturation 10%, seeing hematologi st soon History of malignant neoplasm of breast 307894476 Z85.3 History of breast cancer in 2018Status post right mastectomy On examestane which she completed 2023 History of thromboembolism 082036017 Z86.718 hx of Venous thrombossB ilateral lower extremity DVT February4Repeat venous duplex 10/09-PE 01/2023was on anticoagul ation but complicate d with gi bleed and hence now off History of gastrointestinal bleed 175479155 Z87.19 History of GI bleed February 2023 with severe anemia down to 4Off anticoagul ation Adenomatou s polyp of colon 708892104 D12.6 Colonoscop y 04/10: Tubular adenoma ascending colon and cecalSees Dr. Cochran Bilateral osteoarthritis of knees 7978082439 90272 M17.0 received injections in the past Preventive procedure 169 182887 Z29.9 Mammogram 06/09Negati ve 07/10: negativeCo lonoscopy 04/10: Tubular adenoma ascending colon and cecum sees Dr. Alvarez one / 2020: Osteopenia Hyponatremia 69068726 E8 7.1 04714 na level down to 125 on 08/26/2024. likely from metolazone .will stop this.k was low too.will recheck labs again.fair ly asymptomat ic with this hponatrmei a.she has had hyponatrem ia to this extent in the past [id number] Micheal Rodriguez MD [facility] [address] [place] [address] 11/02/2024 11:28:16 11/02/2024 12:34:11 Lymphedema 987803000 I89.0 72301 bilateral lower legscompre ssion socksimpro ving Hyponatremia 66873222 E8 7.1 61558 na level down to 125 on 08/26/2024. likely from metolazone .stoppedan d improved on repeat with na up to 133.she has had hyponatrem ia to this extent in the past Chronic di astolic heart failure 590254189 I50.32 Echo 03/11:ef 60-65 PercentMil d aortic valve sclerosis. Trace TR. Grade 1 diastolic dysfunctio n.Noncompl iant with BumexDiscu ssed fluid restrictio nContinue Bumex 1 mg twice dailyrecen tly added on metolazone .weight is up.added metolazone bmp 08/2024 with na level at 125. K 3.0. bnp 347held metolazone Depressive disorder 3548 9007 F32.A on sertraline .increased to 200 mg daily now back down to 100 mg dailyon alprazolam prn which was given in the hospital Asthma 908584340 J45.[address] Lafleur symbicort and albuterol prndiscuss ed switching to trelegy.wi ll switch to trelegy if this helps Obstructiv e sleep apnea syndrome 91780981 G47.[address] Oseguera Chronic rhinosinusitis 924918155 J31.0 Seen ENTOn Flonase and Astelin twice a daily ipratropiu mGoing to see slu ENT Iron defic iency anemia 59339456 D50.9 Severe anemia February 2023 with GI bleed due to anticoagul ationRecei [place] iron infusion in the pastFollow s with hematologi st08/10: iron saturation 10%, seeing hematologi st History of malignant neoplasm of breast 969538879 Z85.3 History of breast cancer in 2017Status post right mastectomy On exemestane which she completed 2023 History of thromboembolism 650810010 Z86.718 hx of Venous thrombossB ilateral lower extremity DVT February4Repeat venous duplex 10/09-PE 01/2023was on anticoagul ation but complicate d with gi bleed and hence now off History of gastrointestinal bleed 422235971 Z87.19 History of GI bleed February 2023 with severe anemia down to 4Off anticoagul ation Adenomatou s polyp of colon 924180541 D12.6 Colonoscop y 04/10: Tubular adenoma ascending colon and cecalSees Dr. Cochran Bilateral osteoarthritis of knees 9090596555 98545 M17.0 received injections in the past Preventive procedure 169 957958 Z29.9 Mammogram 06/09Negati ve 07/10: negativeCo lonoscopy 04/10: Tubular adenoma ascending colon and cecum sees Dr. Alvarez one density 12/2019: Osteopenia Recurrent falls 30705117 2 R29.6 2082766 mechanical mostlyuses cane Osteopenia 477104740 M85 .89 69381482 bone density 12/2019: ostepenia Nausea 486547561 R11.0 93030160 for past month nowwill add pepcid Finding of abdomen 13377 4008 R19.05 55798 ongoing on right side of the abdomen.wi ll further evaluate with ct abdomen and pelvis Chronic constipation 236 737324 K59.09 115301 on and off.mirala xuses correctol prn (bisacodyl Health Concerns Section Related Observation LastModified by Organization Detai ls LastModified Time None Recorded Concern Status LastModified by Organization Details LastModified Time None Recorded Advance Directives Directive None Recorded Payers Insurance Date Sequence Insurance Name Policy Number Policy Avalos Covered Member ID Avalos Member ID Guarantor Name 10/29/2024 1 [place] Tatianna Bailey [id number] Tatianna Bailey 08/29/2024 2 [employer] [place] [id number] Tatianna Shearer [id number] Tatianna Bailey Notes Date Note Type Note Provider Name and Address Organization Details Recorded Time 01/26/2024 text/html ROS as noted in the HPI Pt here to establish care. Her primary physician recently relocated. Pt struggling with depression since loosing spouse on September 17 2023. Pt is currently living alone. Pt sees automobile assembly supervisor Lien Preston for asthma. C/O shortness of breath an wheezing daily. Swelling in ankles and feet present for numerous years. Completed chemo and radiation in 2019 for after mastectomy. States she received iron infusions regularly after being diagnosis with stomach bleed in Feb 2023. Micheal Rodriguez MD [address] [facility] [address], [place], [address], [facility] 01/26/2024 18:33:56 04/27/2024 text/html ROS as noted in the HPI Pt here for hospital follow up. Pt was admitted to [facility] in [place] on 04/12/2024 and discharged on 04/17/2024. DX Flu A, cough. Temaflu was given. Pt sent home on Prednisone- 2 doses left and Zhang Quijano for cough. Pt states she is still feeling fatigue, shortness of breath and coughing with thick white occasional yellow drainage. Denies fever, nausea or vomiting. Edema in feet and lower legs decreased in hospital and starting to increase since she has returned home. States she elevates them at night. MD Damian Franklin[address] [facility] [address], [place], [address], [facility] 04/27/2024 12:47:26 07/28/2024 text/html ROS as noted in the [facility] Pt here for follow up. Mammogram done on Bill. Pt c/o edema in feet, shortness of breath, very fatigue, more thick clear sputum in am. No chest pain, nausea or vomiting. Uses cane for ambulation. Micheal Rodriguez MD [address] [facility] [address], [place], [address], [facility] 07/28/2024 11:16:12 09/02/2024 text/html ROS as noted in the [facility] Pt here for follow up. C/O pt fell 1 week ago against door frame in house. [facility] 08/29/2024. C/O back pain 05/26. xr thoracolumbar spien with scoliosis but no fracute.r She is taking tylenol daily which has been decreasing the pain. Pt states her anxiety has increased, decreased memory, shortness of breath increased, swelling in feet, and cough. Pt upset about being late to appt today. Micheal Rodriguez MD [address] [facility] [address], [place], [address], [facility] 09/02/2024 16:46:10 11/02/2024 text/html ROS as noted in the HPI Pt was seen in [facility] ER on 10/22/2024. DX:Urinary tract infection without hematuria, site unspecified, Dyspnea. Hospital meds reconciled with home medications. Bactrim was given in ER. Pt finished coarse of abx. Pt c/o cough, shortness of breath at all times, nausea after meals x 1 month. Sujata tabs improves the nausea. Lymphedema in lower tera legs improving. she is going for therapy with lymphedema wraps. She continues to participate in lymphedema therapy three times weekly. No chest pain, vomiting. No falls noted.she feels bit of lump on the right side of the abdomen and feels asymmetric. no pain per se but feels a little discomfort. ongoing since a while per patient Micheal Rodriguez MD [address], [place], [address], [facility] 11/02/2024 12:30:11 OBGyn Episode No OBEpisode recorded.
--- OUTSIDE RECORDS SUMMARY | 2024-11-30 11:26 | XMS_ITS | Clinical Summary ---
Author Organization [facility] Address [address] [place] [address] Care Team Providers Care Deputy Sheriff Custody Name Role Phone Micheal Rodriguez MD Primary [...] mg total) by mouth daily 4 Active ALPRAZolam (XANAX) 0.25 mg tablet TAKE 1 TABLET BY MOUTH THREE TIMES A DAY NEEDED FOR ANXIETY 4 Active budesonide-form oteroL (SYMBICORT) 160-4.5 mcg/actuation inhaler Inhale 2 puffs 2 (two) times a day [address] (PROTONIX) 40 mg EC tablet Take 1 tablet (40 mg total) by mouth 2 (two) times a day 4 Active metOLazone (ZAROXOLYN) 2.5 mg tabletIndicatio ns:Edema, lower extremity Take 1 tablet (2.5 mg total) by mouth daily for 4 days Take 30 minutes before bumetanide. 4 tablet 1 5 Active metoprolol XL (TOPROL-XL) 25 mg extended release tablet TAKE 2 TABLETS BY MOUTH DAILY 180 tablet 1 5 Active ferrous gluconate 324 mg (37.5 mg of elemental iron) tablet Take 1 tablet (324 mg total) by mouth daily Active acetaminophen (TYLENOL) 500 mg tablet Take 1 tablet (500 mg total) by mouth every 6 (six) hours as needed Active potassium chloride ER 10 mEq CR tablet Take 1 tablet/capsule (10 mEq total) by mouth 2 (two) times a day 5 Active Active Problems Problem Noted Date Diagnosed Date Lesion of eyelid 07/01/2023 Assessment & Plan (07/01/2023 2:45 PM CDT): Images from the original note were not included. Schedule for consult with oculoplastics for excision. Early dry stage nonexudative age-related macular degeneration of both eyes 07/01/2023 Assessment & Plan (03/23/2024 1:34 PM MAILROOM MANAGER): Slight srf sup to disc OD now with diffuse drusen and some atrophy OU. Continue AREDS. Pt wants to seek care closer to home. Schedule for consult at [facility] in [place]. F/u here prn. Assessment & Plan (07/01/2023 2:46 PM CDT): Stable with no signs of exudative disease on exam today. F/u in 6 months for repeat DFE and mac OCT. ANG (iron deficiency anemia) 04/10/2023 Acute upper GI bleed 03/21/2023 Assessment & Plan (03/31/2023 3:09 PM MAILROOM MANAGER): CT A/P GI bleed protocol on admission with 2 foci of arterial enhancement and blooming on delayed images in the 2nd and 3rd portions of the duodenum compatible with active extravasation. Hgb 4.5 (baseline 11, 11/2022) from 6 on 03/16. Iron deficient on presentation to OSH, iron deficiency resolved s/p IV repletion. B12 wnl. No hypotension. Pt is Jainism and does not accept whole blood products. [...] 03/21/2023 Assessment & Plan (03/21/2023 2:57 AM MAILROOM MANAGER): - Home nightly CPAP Breast cancer 03/21/2023 Assessment & Plan (03/21/2023 2:59 AM MAILROOM MANAGER): R breast CA (2018, ER+) s/p R mastectomy, chemotherapy, and radiation now on surveillance. Was on exemestane until recently, she reports Oncology stopped it due to concern about potential adverse effects. Pulmonary embolism 03/21/2023 Assessment & Plan (03/27/2023 6:23 PM MAILROOM MANAGER): Hospitalized at OSH 01/2023 with RSV; [...] 03/21/2023 Assessment & Plan (04/01/2023 3:38 PM MAILROOM MANAGER): Follows w/ OSH pulmonology. Mild expiratory [...] 03/21/2023 Assessment & Plan (03/21/2023 3:14 AM MAILROOM MANAGER): - Hold home diltiazem 120 mg daily, losartan 50 mg daily pending clinical course given acute GI bleed Anxiety 03/21/2023 Assessment & Plan (03/21/2023 3:15 AM MAILROOM MANAGER): - Home sertraline Acute anemia 03/20/2023 Assessment & Plan (04/03/2023 10:45 AM MAILROOM MANAGER): Due to GIB. No melena since 03/24. Hgb has been on the low 5s. She is Jainism and does not accept whole blood products. [...] the results faxed to Dr Pérez at [phone] Pseudophakia of both eyes 12/31/2022 Assessment & Plan (07/01/2023 2:46 PM CDT): Stable. Observe. Assessment & Plan (01/01/2023 9:08 AM MAILROOM MANAGER): Stable. Observe. Diastolic heart failure 09/11/2021 Assessment & Plan (03/24/2023 6:44 PM MAILROOM MANAGER): Chart history of diastolic dysfunction, appears hypervolemic on admission with small bilateral pleural effusions and 2+ pitting edema BLEs. No S/s CHF exacerbation - Hold home Bumex 4 mg PO daily pending clinical course given acute GI bleed - TTE- Normal LV size and systolic function Left posterior capsular opacification 04/22/2019 Assessment & Plan (01/01/2023 9:10 AM MAILROOM MANAGER): Stable. Observe. Assessment & Plan (12/25/2021 4:22 PM MAILROOM MANAGER): Mild. Stable. observe. Assessment & Plan (06/26/2021 4:08 PM CDT): Stable. Observe. Assessment & Plan (01/24/2021 12:27 PM MAILROOM MANAGER): Minimal impact on bcva. Observe. Visual symptoms likely due to uncorrected refractive error. Update SRx. Assessment & Plan (04/22/2019 2:56 PM MAILROOM MANAGER): Not yet impacting BCVA. Observe. Update SRx for reading. Retinal drusen of both eyes 04/22/2019 Assessment & Plan (01/01/2023 9:09 AM MAILROOM MANAGER): Progressive non-exudative AMD with GA OU. Recommended pt start AREDS vitamin supplements. F/u in 6 months for repeat DFE with mac OCT. Assessment & Plan (07/03/2022 4:10 PM CDT): Stable on exam today. No e/o conversion to exudative disease. Continue to follow q6mos. Assessment & Plan (12/25/2021 4:22 PM MAILROOM MANAGER): cuticular drusen OU. Low risk of conversion to exudative disease. Repeat dfe in 6 mos. Assessment & Plan (06/26/2021 4:08 PM CDT): No active exudative disease evident on exam and OCT today. Continue to follow q6mo. Assessment & Plan (01/24/2021 12:27 PM MAILROOM MANAGER): Stable on exam. Will recheck OCT at f/u. Assessment & Plan (04/22/2019 2:55 PM MAILROOM MANAGER): Small hard drusen OU. Mild. Annual exam. Exposure keratopathy 04/22/2019 Assessment & Plan (12/25/2021 4:22 PM MAILROOM MANAGER): ATs prn. Assessment & Plan (04/22/2019 2:57 PM MAILROOM MANAGER): Variable blur when reading likely due [...] on file Legal Sex Female 3:01 AM MAILROOM MANAGER Gender Identity Not on file Sexual [...] , 12/14/2018, 12/03/2013, Additional history exists Insurance [address] [facility] SUPPLEMENT MEDICARE COMMERCIAL GENERIC MEDICARE LOCAL [address] SUPPLEMENT Advance Directives For more information, please contact: [phone] Documents on File Type Date Recorded Patient Fisher Expl anation ADVANCE DIRECTIVE 04/07/2023 7:01 PM POWER OF TICKET SALES AGENT-MEDICAL * Full Code (Latest Code Status on File) Date Activated Date Inactivated Comments 03/20/2023 7:03 PM 04/03/2023 5:45 PM Care Teams Deputy Sheriff Custody Relationship Specialty Start Date End Date Micheal Rodriguez MD [address] [facility] [address] [place], [place] [id number] PCP - General Internal Medicine 06/20/24
--- OUTSIDE RECORDS SUMMARY | 2024-11-30 11:26 | XMS_ITS ---
Author Organization [facility] Address [address] [place] [address] Care Team Providers Care Sterile Tech Name Role Phone Micheal Rodriguez MD Primary Care Provider Active Problems Problem Noted Date Diagnosed Date Lesion of eyelid 07/01/2023 Assessment & Plan (07/01/2023 2:45 PM CDT): Images from the original note were not included. Schedule for consult with oculoplastics for excision. Early dry stage nonexudative age-related macular degeneration of both eyes 07/01/2023 Assessment & Plan (03/23/2024 1:34 PM CAR CHASER): Slight srf sup to disc OD now with diffuse drusen and some atrophy OU. Continue AREDS. Pt wants to seek care closer to home. Schedule for consult at [facility] in [place]. F/u here prn. Assessment & Plan (07/01/2023 2:46 PM CDT): Stable with no signs of exudative disease on exam today. F/u in 6 months for repeat DFE and mac OCT. ANG (iron deficiency anemia) 04/10/2023 Acute upper GI bleed 03/21/2023 Assessment & Plan (03/31/2023 3:09 PM CAR CHASER): CT A/P GI bleed protocol on admission with 2 foci of arterial enhancement and blooming on delayed images in the 2nd and 3rd portions of the duodenum compatible with active extravasation. Hgb 4.5 (baseline 1111/2022) from 6 on 03/16. Iron deficient on presentation to OSH, iron deficiency resolved s/p IV repletion. B12 wnl. No hypotension. Pt is Mormon and does not accept whole blood products. [...] 03/21/2023 Assessment & Plan (03/21/2023 2:57 AM CAR CHASER): - Home nightly CPAP Breast cancer 03/21/2023 Assessment & Plan (03/21/2023 2:59 AM CAR CHASER): R breast CA (2018, ER+) s/p R mastectomy, chemotherapy, and radiation now on surveillance. Was on exemestane until recently, she reports Oncology stopped it due to concern about potential adverse effects. Pulmonary embolism 03/21/2023 Assessment & Plan (03/27/2023 6:23 PM CAR CHASER): Hospitalized at OSH 01/2023 with RSV; shortly [...] 03/21/2023 Assessment & Plan (04/01/2023 3:38 PM CAR CHASER): Follows w/ OSH pulmonology. Mild expiratory wheezes [...] 03/21/2023 Assessment & Plan (03/21/2023 3:14 AM CAR CHASER): - Hold home diltiazem 120 mg daily, losartan 50 mg daily pending clinical course given acute GI bleed Anxiety 03/21/2023 Assessment & Plan (03/21/2023 3:15 AM CAR CHASER): - Home sertraline Acute anemia 03/20/2023 Assessment & Plan (04/03/2023 10:45 AM CAR CHASER): Due to GIB. No melena since 03/24. Hgb has been on the low 5s. She is Mormon and does not accept whole blood products. S/p 500 IV iron x2 at OSH - Heme consulted: After risk/benefit discussion with patient and loved ones regarding increased risk of DVT/PE expansion with Epo, decision made to proceed with erythrocyte stimulating agent. Patient received Aranesp 400 mcg SQ on 03/20 and 300 mcg on 03/28. Plan is Aranesp 300 mcg qweekly - [facility] unable to provide Aranesp; giving additional dose 04/03 prior to d/c. - She has a follow up appoint with Dr Pérez on 04/16/2023 at 1:30pm. - Order weekly CBC outpatient and have the results faxed to Dr Pérez at [phone] Pseudophakia of both eyes 12/31/2022 Assessment & Plan (07/01/2023 2:46 PM CDT): Stable. Observe. Assessment & Plan (01/01/2023 9:08 AM CAR CHASER): Stable. Observe. Diastolic heart failure 09/11/2021 Assessment & Plan (03/24/2023 6:44 PM CAR CHASER): Chart history of diastolic dysfunction, appears hypervolemic on admission with small bilateral pleural effusions and 2+ pitting edema BLEs. No S/s CHF exacerbation - Hold home Bumex 4 mg PO daily pending clinical course given acute GI bleed - TTE- Normal LV size and systolic function Left posterior capsular opacification 04/22/2019 Assessment & Plan (01/01/2023 9:10 AM CAR CHASER): Stable. Observe. Assessment & Plan (12/25/2021 4:22 PM CAR CHASER): Mild. Stable. observe. Assessment & Plan (06/26/2021 4:08 PM CDT): Stable. Observe. Assessment & Plan (01/24/2021 12:27 PM CAR CHASER): Minimal impact on bcva. Observe. Visual symptoms likely due to uncorrected refractive error. Update SRx. Assessment & Plan (04/22/2019 2:56 PM CAR CHASER): Not yet impacting BCVA. Observe. Update SRx for reading. Retinal drusen of both eyes 04/22/2019 Assessment & Plan (01/01/2023 9:09 AM CAR CHASER): Progressive non-exudative AMD with GA OU. Recommended pt start AREDS vitamin supplements. F/u in 6 months for repeat DFE with mac OCT. Assessment & Plan (07/03/2022 4:10 PM CDT): Stable on exam today. No e/o conversion to exudative disease. Continue to follow q6mos. Assessment & Plan (12/25/2021 4:22 PM CAR CHASER): cuticular drusen OU. Low risk of conversion to exudative disease. Repeat dfe in 6 mos. Assessment & Plan (06/26/2021 4:08 PM CDT): No active exudative disease evident on exam and OCT today. Continue to follow q6mo. Assessment & Plan (01/24/2021 12:27 PM CAR CHASER): Stable on exam. Will recheck OCT at f/u. Assessment & Plan (04/22/2019 2:55 PM CAR CHASER): Small hard drusen OU. Mild. Annual exam. Exposure keratopathy 04/22/2019 Assessment & Plan (12/25/2021 4:22 PM CAR CHASER): ATs prn. Assessment & Plan (04/22/2019 2:57 PM CAR CHASER): Variable blur when reading likely due to [...]
--- OUTSIDE RECORDS SUMMARY | 2024-11-30 11:26 | XMS_ITS | Encounter Summary ---
Author Organization [facility] Address [address] [facility] [place] [address] Care Team Providers Care Assisted Living Administrator Name Role Phone Mark العلي DO Primary Care Provider [phone] Micheal Rodriguez MD Primary Care Provider [phone] Reason for Referral * Consultation (Routine) - Closed Specialty Diagnoses / Procedures Referred By Contac t Referred To Contact ENT-Otolaryngology Diagnoses Chronic rhinitis Lien Oseguear MD [address] [facility] [address] [place] [address] Phone: tel: fax: Jimbo Canas MD [address] [place] [address] Phone: tel: fax: Referral ID Status Reason Start Date Expiration Date V isits Requested Visits Authorized [id number] Closed Specialty Services Required 01/06/2024 01/05/2025 1 1 TER APPRENTICE Encounter Details Date Type Department Care Team (Late st Contact Info) Description 01/06/2024 Transcribe Orders [facility] - Centralized Scheduling [address] [place] [id number] Lien Oseguera MD [address] [facility] [address] [place] [address] Chronic rhinitis Social History Tobacco Use Types Packs/Day Years Used Date Smoking Tobacco: Never Assessed Comments Unknown Sex and Gender Information Value Date Recorded Sex Assigned at Not on file Legal Sex Female 5:55 AM PAINTER APPRENTICE Gender Identity Not on file Sexual Orientation Not on file documented as of this encounter Plan of Treatment Scheduled Referrals Name Type Priority Associated Diagnoses Order Schedule AMB REFERRAL TO ENT Outpatient Referral Routine Chronic rhinitis 1 Occurrences starting 01/06/2024 until 01/05/2025 documented as of this encounter Visit Diagnoses Diagnosis Chronic rhinitis- Primary documented in this encounter Care Teams Assisted Living Administrator Relationship Specialty Start Date End Date Mark العلي DO [address] [place] [phone] PCP - General 04/25/22 03/13/24 Micheal Rodriguez MD [address] [facility] [address] [place] [address] PCP - General Internal Medicine 03/14/24 documented as of this encounter
--- OUTSIDE RECORDS SUMMARY | 2024-11-30 11:26 | XMS_ITS | Clinical Summary ---
Author Organization [facility] Address [address] [facility] [place] [address] Care Team Providers Care Manager Of Tax Name Role Phone Micheal Rodriguez MD Primary Care Provider [phone] Source Comments [facility],non-owned Affiliates and Associated Physician Practices is amultiple site organization consisting of ambulatory clinics and hospital sitesin [place], [place], [place]. This disclosure is being madepursuant to the Care Everywhere program and may not contain all information available regarding this patient. Last updated 17.[facility] Allergies Active Allergy Reactions Criticality Noted Date [...] Active azelastine (Astelin) 0.1 % nasal spray [place] 1 (one) spray into each nostril 2 [...] on file Legal Sex Female 5:55 AM CRYPTOLOGIC TECHNICIAN TECHNICAL Gender Identity Not on file Sexual Orientation Not on file Last Filed Vital Signs Vital Sign Reading Time Taken Comments Blood Pressure 178/80 03/14/2024 10:22 AM CRYPTOLOGIC TECHNICIAN TECHNICAL Pulse 65 03/14/2024 10:22 AM CRYPTOLOGIC TECHNICIAN TECHNICAL Temperature - - Respiratory Rate - - Oxygen Saturation - - Inhaled Oxygen Concentration - - Weight 76.2 kg (168 lb) 03/14/2024 10:22 AM CRYPTOLOGIC TECHNICIAN TECHNICAL Height 162.6 cm (5' 4) 03/14/2024 10:22 AM CRYPTOLOGIC TECHNICIAN TECHNICAL Body Mass Index 28.84 03/14/2024 10:22 AM CRYPTOLOGIC TECHNICIAN TECHNICAL Plan of Treatment Health Maintenance Due Date Last Done Comments MEDICARE AWV 12 MONTHS 1936 DTAP/TDAP/TD VACCINES (1 - Tdap) 09/07/1955 ZOSTER VACCINE (1 of 2) 1986 Respiratory Syncytial Virus (RSV) Vaccine Pt: or over 60 yrs (1 - 1-dose 75+ series) 09/07/2011 PNEUMOCOCCAL VACCINE 50+ (2 of 2 - PCV) 12/15/2019 12/14/2018, 12/05/2009 DEPRESSION SCREENING 02/17/2024 COVID-19 VACCINE (1 - season) 2024 INFLUENZA VACCINE (#1) 2024 3, 12/14/2018, 12/03/2013, [...] MEDICARE MEDICARE SUPPLEMENT PAYOR GENERIC Care Teams Manager Of Tax Relationship Specialty Start Date End Date Micheal Rodriguez MD [address] [address] [place] [phone] PCP - General Internal Medicine 03/14/24
--- OUTSIDE RECORDS SUMMARY | 2024-11-30 11:26 | XMS_ITS | Clinical Summary ---
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 Gender Identity Not on file Sexual Orientation [...] Description 12/02/2024 11:15 AM CDT Office Visit [facility] Oncology and H[facility]ology - [place] [address] [place] [address] Chadwick Enciso MD [address] [facility] [address] [place] [address] Health Maintenance Due Date Last Done Comments DTAP/TDAP/TD VACCINES (1 - Tdap) 09[birth year]07/1954 Traditional Medicare (ACO) A nnual Wellness Visit 09/07/1955 ZOSTER VACCINE (1 of 2) 09/07/1955 RSV VACCINE (60+ or ) (1 - 1-dose 75+ series) 09/07/2011 PNEUMOCOCCAL VACCINE 50+ YEA RS (3 of 3 - PCV) 12/15/2019 12/14/2018, 12/05/2009, 12/05/2009 INFLUENZA VACCINE (#1) 2024 2, 11/10/2019, 12/14/2018 COVID-19 Vaccine (2024-2 6 season) 2024 01/02/2023, 12/13/2021, 2021, Additional history exists OSTEOPOROSIS SCREENING 01/15/2025 01/16/2020, 2019 Procedures Procedure Name Priority Date/Time Associated Diagnosis Comments XR DEXA BONE DENSITY AXIAL 1 OR MORE SITES Routine 01/16/2020 Aromatase inhibitor use from Last 3 Months or Most Recently Relevant to Health Maintenance Results * XR DEXA BONE DENSITY AXIAL 1 OR MORE SITES (01/16/2020) Anatomical Region Laterality Modality Other [facility] ORDERABLES Final Result from Last 3 Months or Most Recently Relevant to Health Maintenance Insurance MEDICARE PART A AND B GENERIC PAYOR MEDICARE PART A AND B GENERIC PAYOR Care Teams Meat Soaker Relationship Specialty Start Date End Date Micheal Rodriguez MD [address] [facility] [address] [place] [address] PCP - General Internal Medicine 08/02/24
== END 2024-11-30 09:55 | disposition home or self-care (01) ==
PROVIDERS: PCP Internal Medicine; Visit Provider Internal Medicine
DX: J90 Pleural effusion, not elsewhere classified (principal); N13.30 Unspecified hydronephrosis; N13.4 Hydroureter
CPT/HCPCS: 36415; 74177; 82607; 82728; 82746; 83540; 83550; 85027; 86300; Q9967

== ENCOUNTER 2024-11-30 10:33 | Outpatient (CLI) | payer MEDICARE, OTHER, SELFPAY ==
--- OUTSIDE RECORDS SUMMARY | 2009-12-11 08:30 | XMS_ITS | Continuity of Care Document ---
Author Organization [facility] [place] Address [address] [place] [address] Phone Care Team Providers Care Leather Splitter Name Role Phone Erica Flores Unavailable Unavailable Procedures Procedure Date Eye Exam & Treatment Refraction Eye Exam & Treatment Eye Exam & Treatment Eye Exam & Treatment Advance Directives Directive Yes / No Effective Date File Name No Information Encounters Encounter Description Practice Location Reason(s) For Visit Diagnoses Date Provider Providers Copied on Encounter [facility], [address] [place] [address] [address], [place], [place], [id number], tel:[phone] [facility] No Information 6-201 0 Sandra Garnica [address] , [address], [place], [place], [facility], . tel:[phone] [facility], [address] [place] [address] [address], [place], [place], [id number], [place] tel:[phone] [facility] No Information 7-200 9 Sandra Garnica [address] , [address], [place], [place], [facility], . tel:[phone] [facility], [address] [place] [address] [address], [place], [place], [id number], tel:[phone] [facility] No Information 8 Sandra Garnica [address] , [address], [place], [address], [place]. tel:[phone] [facility], [address], [place], [place], [id number], [place] tel:[phone] [facility] No Information 7 Sandra Maldonado. [address] , [address], [place], [address], [place]. tel:[phone] Family History Family Member Type Diagnosis Age At Onset No Information Payers Payer name Insurance type Covered republican ID Gissell ralphgloria(s) [place] [id number] Social History Type Description Quantity Date Captured Comments Sex Female Smoking Status No Information Chief Complaint And Reason For Visit No Information Reason For Referral Reason For Referral No Information History Of Present Illness Encounter Date Complaint History Of Prese nt Illness No Information Functional Status Date Functional Assessmen t No Information Instructions Date Instruction Additional Infor mation No Information Assessments Type Assessment Date No Information Patient Care Teams Name Effective Dates (start - stop) Status Members No Information
[2024-11-30 10:54] LABS: Hematocrit 37.5 % (37.0-47.0); Hemoglobin 12.1 g/dL (12.0-15.0); Mean Corpuscular HGB Conc 32.3 g/dl (32-36); Mean Corpuscular Hemoglobin 29.6 pg (26-34); Mean Corpuscular Volume 91.7 fl (80-100); Platelet Count Result 213 k/mm3 (150-375); Red Blood Count 4.09 M/mm3 (4.2-5.4); White Blood Count 5.0 K/mm3 (4.5-10.0)
--- OUTSIDE RECORDS SUMMARY | 2024-11-30 12:25 | XMS_ITS | Encounter Summary ---
Author Organization [facility] Address [address] [facility] [place] [address] Care Team Providers Care Face Worker Name Role Phone Mark العلي DO Primary Care Provider [phone] Micheal Rodriguez MD Primary Care Provider [phone] Reason for Referral * Consultation (Routine) - Closed Specialty Diagnoses / Procedures Referred By Contac t Referred To Contact ENT-Otolaryngology Diagnoses Chronic rhinitis Lien Oseguera MD [address] [facility] [address] [place] [address] Phone: tel: fax: Jimbo Canas MD [address] [place] [address] Phone: tel: fax: Referral ID Status Reason Start Date Expiration Date V isits Requested Visits Authorized [id number] Closed Specialty Services Required 01/06/2024 01/05/2025 1 1 R MACHINE HELPER Encounter Details Date Type Department Care Team (Late st Contact Info) Description 01/06/2024 Transcribe Orders [facility] - Centralized Scheduling [address] [place] [phone] Lien Oseguera MD [address] [facility] [address] [place] [address] Chronic rhinitis Social History Tobacco Use Types Packs/Day Years Used Date Smoking Tobacco: Never Assessed Comments Unknown Sex and Gender Information Value Date Recorded Sex Assigned at Not on file Legal Sex 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:55 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 Gender Identity Not on file Sexual Orientation Not on file documented as of this encounter Plan of Treatment Scheduled Referrals Name Type Priority Associated Diagnoses Order Schedule AMB REFERRAL TO ENT Outpatient Referral Routine Chronic rhinitis 1 Occurrences starting 01/06/2024 until 01/05/2025 documented as of this encounter Visit Diagnoses Diagnosis Chronic rhinitis- Primary documented in this encounter Care Teams Face Worker Relationship Specialty Start Date End Date Mark العلي DO [address] [place] [phone] PCP - General 04/25/22 03/13/24 Micheal Rodriguez MD [address] [facility] [address] [place] [address] PCP - General Internal Medicine 03/14/24 documented as of this encounter
--- OUTSIDE RECORDS SUMMARY | 2024-11-30 12:25 | XMS_ITS ---
Author Organization [facility] Address [address] [place] [address] Care Team Providers Care Sprinkler Driver Name Role Phone Micheal Rodriguez MD Primary Care Provider Active Problems Problem Noted Date Diagnosed Date Lesion of eyelid 07/01/2023 Assessment & Plan (07/01/2023 2:45 PM CDT): Images from the original note were not included. Schedule for consult with oculoplastics for excision. Early dry stage nonexudative age-related macular degeneration of both eyes 07/01/2023 Assessment & Plan (03/23/2024 1:34 PM PRESCHOOL AIDE): Slight srf sup to disc OD now with diffuse drusen and some atrophy OU. Continue AREDS. Pt wants to seek care closer to home. Schedule for consult at [facility] in [place]. F/u here prn. Assessment & Plan (07/01/2023 2:46 PM CDT): Stable with no signs of exudative disease on exam today. F/u in 6 months for repeat DFE and mac OCT. ANG (iron deficiency anemia) 04/10/2023 Acute upper GI bleed 03/21/2023 Assessment & Plan (03/31/2023 3:09 PM PRESCHOOL AIDE): CT A/P GI bleed protocol on admission with 2 foci of arterial enhancement and blooming on delayed images in the 2nd and 3rd portions of the duodenum compatible with active extravasation. Hgb 4.5 (baseline 1111/2022) from 6 on 03/16. Iron deficient on presentation to OSH, iron deficiency resolved s/p IV repletion. B12 wnl. No hypotension. Pt is [employer] and does not accept whole blood products. [...] 03/21/2023 Assessment & Plan (03/21/2023 2:57 AM PRESCHOOL AIDE): - Home nightly CPAP Breast cancer 03/21/2023 Assessment & Plan (03/21/2023 2:59 AM PRESCHOOL AIDE): R breast CA (2018, ER+) s/p R mastectomy, chemotherapy, and radiation now on surveillance. Was on exemestane until recently, she reports Oncology stopped it due to concern about potential adverse effects. Pulmonary embolism 03/21/2023 Assessment & Plan (03/27/2023 6:23 PM PRESCHOOL AIDE): Hospitalized at OSH 01/2023 with RSV; shortly [...] 03/21/2023 Assessment & Plan (04/01/2023 3:38 PM PRESCHOOL AIDE): Follows w/ OSH pulmonology. Mild expiratory wheezes [...] 03/21/2023 Assessment & Plan (03/21/2023 3:14 AM PRESCHOOL AIDE): - Hold home diltiazem 120 mg daily, losartan 50 mg daily pending clinical course given acute GI bleed Anxiety 03/21/2023 Assessment & Plan (03/21/2023 3:15 AM PRESCHOOL AIDE): - Home sertraline Acute anemia 03/20/2023 Assessment & Plan (04/03/2023 10:45 AM PRESCHOOL AIDE): Due to GIB. No melena since 03/24. Hgb has been on the low 5s. She is [employer] and does not accept whole blood products. S/p 500 IV iron x2 at OSH - Heme consulted: After risk/benefit discussion with patient and loved ones regarding increased risk of DVT/PE expansion with Epo, decision made to proceed with erythrocyte stimulating agent. Patient received Aranesp 400 mcg SQ on 03/20 and 300 mcg on 03/28. Plan is Aranesp 300 mcg qweekly - [facility] unable to provide Aranesp; giving additional dose 04/03 prior to d/c. - She has a follow up appoint with Dr Pérez on 04/16/2023 at 1:30pm. - Order weekly CBC outpatient and have the results faxed to Dr Pérez at [phone] Pseudophakia of both eyes 12/31/2022 Assessment & Plan (07/01/2023 2:46 PM CDT): Stable. Observe. Assessment & Plan (01/01/2023 9:08 AM PRESCHOOL AIDE): Stable. Observe. Diastolic heart failure 09/11/2021 Assessment & Plan (03/24/2023 6:44 PM PRESCHOOL AIDE): Chart history of diastolic dysfunction, appears hypervolemic on admission with small bilateral pleural effusions and 2+ pitting edema BLEs. No S/s CHF exacerbation - Hold home Bumex 4 mg PO daily pending clinical course given acute GI bleed - TTE- Normal LV size and systolic function Left posterior capsular opacification 04/22/2019 Assessment & Plan (01/01/2023 9:10 AM PRESCHOOL AIDE): Stable. Observe. Assessment & Plan (12/25/2021 4:22 PM PRESCHOOL AIDE): Mild. Stable. observe. Assessment & Plan (06/26/2021 4:08 PM CDT): Stable. Observe. Assessment & Plan (01/24/2021 12:27 PM PRESCHOOL AIDE): Minimal impact on bcva. Observe. Visual symptoms likely due to uncorrected refractive error. Update SRx. Assessment & Plan (04/22/2019 2:56 PM PRESCHOOL AIDE): Not yet impacting BCVA. Observe. Update SRx for reading. Retinal drusen of both eyes 04/22/2019 Assessment & Plan (01/01/2023 9:09 AM PRESCHOOL AIDE): Progressive non-exudative AMD with GA OU. Recommended pt start AREDS vitamin supplements. F/u in 6 months for repeat DFE with mac OCT. Assessment & Plan (07/03/2022 4:10 PM CDT): Stable on exam today. No e/o conversion to exudative disease. Continue to follow q6mos. Assessment & Plan (12/25/2021 4:22 PM PRESCHOOL AIDE): cuticular drusen OU. Low risk of conversion to exudative disease. Repeat dfe in 6 mos. Assessment & Plan (06/26/2021 4:08 PM CDT): No active exudative disease evident on exam and OCT today. Continue to follow q6mo. Assessment & Plan (01/24/2021 12:27 PM PRESCHOOL AIDE): Stable on exam. Will recheck OCT at f/u. Assessment & Plan (04/22/2019 2:55 PM PRESCHOOL AIDE): Small hard drusen OU. Mild. Annual exam. 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 Assessment & Plan (04/22/2019 2:57 PM PRESCHOOL AIDE): Variable blur when reading likely due to [...]
--- OUTSIDE RECORDS SUMMARY | 2024-11-30 12:25 | XMS_ITS | Clinical Summary ---
Author Organization [facility] Address [address] [facility] [place] [address] Care Team Providers Care Production Grader Name Role Phone Micheal Rodriguez MD Primary Care Provider [phone] Source Comments [facility],non-owned Affiliates and Associated Physician Practices is amultiple site organization consisting of ambulatory clinics and hospital sitesin [place], [place], [place] and [place]. This disclosure is being madepursuant to the Care Everywhere program and may not contain all information available regarding this patient. 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.] MEDICARE MEDICARE SUPPLEMENT PAYOR GENERIC Care Teams Production Grader Relationship Specialty Start Date End Date Micheal Rodriguez MD [address] [address] [place] [phone] PCP - General Internal Medicine 03/14/24
--- OUTSIDE RECORDS SUMMARY | 2024-11-30 12:25 | XMS_ITS | Clinical Summary ---
Author Organization [facility] Address [facility] [place] [address] Care Team Providers Care Guest Service Aide Name Role Phone Micheal Rodriguez MD Primary Care Provider [phone]- [phone] Allergies Active Allergy Reactions Criticality Noted Date [...] Noted Date Diagnosed Date Acute respiratory failure 04/12/2024 Encounters Date Type Department Care Team Description 10/22/2024 3:54 PM CDT - 10/22/2024 6:[address] [facility] Emergency Room [id number] [place] [id number] Julio Dick DO Medical Problem Discharge Disposition: Home or Self Care (Routine Discharge) 10/22/2024 Travel from Last 3 Months Social History Tobacco Use Types Packs/Day Years Used Date Smoking Tobacco: Former Cigarettes Tobacco Cessation:Counseling Given: Not Answered B1300 Health Literacy Answer Date Recor ded How often do you need to hav e someone help you when you read instructions, pamphlets, or other written material from your doctor or pharmacy? Rarely 04/12/2024 [facility] Utilities Answer Date Recorded In the past 12 months has e [employer], [employer], [employer], or water [employer] threatened to shut off services in your [...] or ex-partner? No 04/12/2024 Social Connection and Isolation Panel Answer Date Recorded In a typical week, how many times do you talk on the phone with family, friends, or neighbors? More than three times a week 04/12/2024 How often do you get togethe r with friends or relatives? More than three times a week 04/12/2024 How often do you attend [facility] or latter day services? More than 4 times per year 04/12/2024 Do you belong to any clubs o r organizations such as restorationist groups, unions, fraternal or athletic groups, or [...] care, and heating? Not very hard 04/12/2024 [facility] - Occupational Stress Questionnaire Answer Date Recorded [...] any time in the past 12 [facility], were you homeless or living in a longterm (including now)? No 04/12/2024 Comments Unknown Sex and Gender Information Value Date Recorded Sex Assigned at Female 04/12/2024 7:53 PM MAT MACHINE TENDER Legal Sex Female 6:51 PM CDT Gender Identity Not on file Sexual Orientation Not on file Last Filed Vital Signs Vital Sign Reading Time Taken Comments Blood Pressure 165/72 10/22/2024 6:00 PM CDT Pulse 62 10/22/2024 6:00 PM CDT Temperature 36.3 C (97.4 F) 10/22/2024 4:03 PM CDT Respiratory Rate 22 10/22/2024 6:00 PM CDT Oxygen Saturation 96% 10/22/2024 6:00 PM CDT Inhaled Oxygen Concentration - - Weight 75.8 kg (167 lb) 10/22/2024 4:03 PM CDT Height 162.6 cm (5' 4) 10/22/2024 4:03 PM CDT Body Mass Index 28.67 10/22/2024 4:03 PM CDT Plan of Treatment Health Maintenance Due Date Last Done Comments DTaP, Tdap and Td Vaccines (1 - Tdap) 09[birth year]07/1954 Zoster Vaccines (1 of 2) 1986 Annual Medicare Wellness Visit 2001 RSV Immunization or 60+ Years (1 - 1-dose 75+ series) 09/07/2011 Pneumococcal Vaccine: 50+ Years (2 of 2 - PCV) 12/15/2019 12/14/2018, 12/05/2009 COVID-19 Vaccine ( season) 2024 01/02/2023, 12/13/2021, 2021, Additional history exists Influenza Adult (#1) 2024 12/11/2022, 12/14/2018, 11/16/2016, Additional history exists Meningococcal B Vaccine Aged [...] perform ADLs independently Lifestyle No Andria Larson surveillance systems engineer Procedure Name Priority Date/Time Associated Diagnosis Comments URINALYSIS, AUTO, COMPLETE STAT 10/22/2024 5:10 PM CDT ECG 12-LEAD STAT 10/22/2024 4:24 PM CDT PRO-BRAIN NATRIURETIC PEPTIDE STAT 10/22/2024 4:04 PM CDT MAGNESIUM STAT 10/22/2024 4:04 PM CDT LACTIC ACID W REFLEX (SEPSIS) STAT 10/22/2024 4:04 PM CDT LIPASE STAT 10/22/2024 4:04 PM CDT TROPONIN, QUANT STAT 10/22/2024 4:04 PM CDT COMPREHENSIVE METABOLIC PANEL STAT 10/22/2024 4:04 PM CDT PARTIAL THROMBOPLASTIN TIME,PTT STAT 10/22/2024 4:04 PM CDT PROTHROMBIN TIME, VENOUS STAT 10/22/2024 4:04 PM CDT CBC W/DIFF AUTOMATED STAT 10/22/2024 4:04 PM CDT from Last 3 Months Results * (ABNORMAL) URINALYSIS, AUTO, COMPLETE (10/22/2024 5:10 PM CDT) COLOR (U) YELLOW 10/22/2024 5:27 PM CDT [facility] TRANSPARENCY CLEAR 10/22/2024 5:27 PM CDT [facility] SPECIFIC GRAVITY (U) <1.005 1.000 - 1.030 10/22/2024 5:27 PM CDT [facility] U PH 6.0 5.0 - 9.0 10/22/2024 5:27 PM CDT [facility] LEUKOCYTES (U) 1+(A) NEGATIVE 10/22/2024 5:27 PM CDT [facility] NITRITES NEGATIVE NEGATIVE 10/22/2024 5:27 PM CDT [facility] PROTEIN RANDOM (U) NEGATIVE NEGATIVE 10/22/2024 5:27 PM CDT [facility] GLUCOSE (U) NEGATIVE NEGATIVE 10/22/2024 5:27 PM CDT [facility] KETONES MG/DL (U) NEGATIVE NEGATIVE 10/22/2024 5:27 PM CDT [facility] BILIRUBIN (U) NEGATIVE NEGATIVE 10/22/2024 5:27 PM CDT [facility] BLOOD (U) TRACE(A) NEGATIVE 10/22/2024 5:27 PM CDT [facility] WBC/HPF 5-10 0 - 5 /HPF 10/22/2024 5:27 PM CDT [facility] RBC/HPF 0-5 0 - 5 /HPF 10/22/2024 5:27 PM CDT [facility] EPI/HPF MODERATE /HPF 10/22/2024 5:27 PM CDT [facility] BACTERIA (U) RARE /HPF 10/22/2024 5:27 PM CDT [facility] URINE SPECIMEN OBTAINED BY CLEAN CATCH PROCEDURE / Unknown 10/22/2024 5:10 PM CDT Julio Dick DO URINE ORDERABLES Final Result [facility] [address] [place] [address], * ECG 12 lead (10/22/2024 4:24 PM CDT) 10/22/2024 4:24 PM CDT Narrative [facility] ([facility] RAD - 10/23/2024 3:14 PM CDT [facility] Test Date: 2024-10-22 Pat Name: TATIANNA AGUIAR Department: 85 Room: EXAM 303 Gender: Female Delivery Engineer: : 1935 Requested By: JULIO DICK Order Number: [id number] Reading : Hadley Fan Measurements Intervals [place] Rate: 65 P: 64 DC: 207 QRS: -39 QRSD: 73 T: 35 QT: 409 QTc: 426 Interpretive Statements SINUS RHYTHM POSSIBLE LEFT ATRIAL ENLARGEMENT [-0.1mV P-WAVE IN V1/V2] LEFT AXIS DEVIATION [QRS AXIS < -30] Compared to ECG 04/12/2024 19:23:02 Left-axis deviation now present Myocardial infarct finding no longer present Procedure Note Hadley Fan MD - 10/23/2024 [facility] Test Date: 2024-10-22 Pat Name: TATIANNA AGUIAR Department: 85 Room: EXAM 303 Gender: Female Delivery Engineer: : 1935 Requested By: JULIO DICK Order Number: [id number] Reading MARTÍNEZ Fan Measurements Intervals [place] Rate: 65 P: 64 DC: 207 QRS: -39 QRSD: 73 T: 35 QT: 409 QTc: 426 Interpretive Statements SINUS RHYTHM POSSIBLE LEFT ATRIAL ENLARGEMENT [-0.1mV P-WAVE IN V1/V2] LEFT AXIS DEVIATION [QRS AXIS < -30] Compared to ECG 04/12/2024 19:23:02 Left-axis deviation now present Myocardial infarct finding no longer present us Julio Dick DO ECG ORDERABLES Final Result [facility] ([facility]) RAD * LACTIC ACID W REFLEX (SEPSIS) (10/22/2024 4:04 PM CDT) LACTIC ACID VENOUS 0.6 0.4 - 2.0 MMOL/L 10/22/2024 4:43 PM CDT [facility] 10/22/2024 4:04 PM CDT us Julio Dick DO LABORATORY Final Result Performing Organization Address [facility]/ZIP Co de Phone Number [facility] [address] [place] [address], * PRO-BRAIN NATRIURETIC PEPTIDE (10/22/2024 4:04 PM CDT) PRO-B TYPE NATRIURETIC PEPTIDE 215 <450 PG/ML 10/22/2024 4:47 PM CDT [facility] Comment: CUT POINTS ESTABLISHED BY INTERNATIONAL [...] OF 89% AND 72% FOR ACUTE CHF. 10/22/2024 4:04 PM CDT us Julio Dick DO LABORATORY Final Result Performing Organization Address [facility]/ZIP Co de Phone Number [facility] [address] [place] [address], [place] [phone] * PARTIAL THROMBOPLASTIN TIME,PTT (10/22/2024 4:04 PM CDT) PTT 34.9 25.1 - 36.5 SEC 10/22/2024 4:30 PM CDT [facility] 10/22/2024 4:04 PM CDT us Julio Broschak DO LABORATORY Final Result Performing Organization Address City/[facility]/ZIP Co de Phone Number [facility] [address] [place] [address], [place] [phone] * PROTIME/INR, VENOUS (10/22/2024 4:04 PM CDT) [facility] PROTIME 11.8 9.1 - 12.4 SEC 10/22/2024 4:30 PM CDT [facility] INR 1.0 10/22/2024 4:30 PM CDT [facility] Comment: Recommend INR ranges for Oral Anticoagulant Therapy: Mechanical Cardiac Values 2.5-3.5 All others indication 2.0-3.0 10/22/2024 4:04 PM CDT Julio Dick DO LABORATORY Final Result Performing Organization Address [facility] Co de Phone Number [facility] [address] [place] [address], [place] [phone] * (ABNORMAL) COMPREHENSIVE METABOLIC PANEL (10/22/2024 4:04 PM CDT) [facility] GLUCOSE 103(H) 70 - 99 MG/DL 10/22/2024 4:47 PM CDT [facility] BUN 15 7 - 18 MG/DL 10/22/2024 4:47 PM CDT [facility] CREATININE S/P/B 0.98 0.55 - 1.02 MG/DL 10/22/2024 4:47 PM CDT [facility] SODIUM S/P/B 133(L) 136 - 145 MMOL/L 10/22/2024 4:47 PM CDT [facility] POTASSIUM S/P/B 3.6 3.5 - 5.1 MMOL/L 10/22/2024 4:47 PM CDT [facility] CHLORIDE S/P/B 99(L) 100 - 108 MMOL/L 10/22/2024 4:47 PM [facility] CO2 27.2 21 - 32 MMOL/L 10/22/2024 4:47 PM [facility] CALCIUM S/P/B 8.6 8.5 - 10.1 MG/DL 10/22/2024 4:47 PM [facility] BILIRUBIN TOTAL S/P/B 0.5 0.2 - 1.2 MG/DL 10/22/2024 4:47 PM [facility] TOTAL PROTEIN S/P/B 6.9 6.4 - 8.2 G/DL 10/22/2024 4:47 PM [facility] ALBUMIN S/P/B 3.5 3.4 - 5.0 G/DL 10/22/2024 4:47 PM [facility] AST 14(L) 15 - 37 U/L 10/22/2024 4:47 PM [facility] ALT 16 14 - 55 U/L 10/22/2024 4:47 PM [facility] ALKALINE PHOSPHATASE S/P/B 74 50 - 136 U/L 10/22/2024 4:47 PM [facility] ANION GAP 6.8 5 - 15 MMOL/L 10/22/2024 4:47 PM [facility] BUN CREATININE RATIO 15.3 6 - 26 10/22/2024 4:47 PM [facility] A/G RATIO 1.0 1.0 - 2.0 RATIO 10/22/2024 4:47 PM [facility] GFR ESTIMATE 56(L) >90 ML/MIN/1.7 3 M2 10/22/2024 4:47 PM [facility] Comment: NOTE: eGFR is not calculated for patients <18 years of age. This is an estimated GFR calculation using the new CKD EPI creatinine equation without race and so does not require a correction factor for race. This estimated GFR should not be used for calculating drug doses. 10/22/2024 4:04 PM CDT Julio Dick DO LABORATORY Final Result [facility] [address] [place] [address], * (ABNORMAL) CBC W/DIFF AUTOMATED (10/22/2024 4:04 PM CDT) WBC 7.52 4.4 - 11.0 x10'3/uL 10/22/2024 4:24 PM CDT [facility] RBC 4.00(L) 4.50 - 5.10 x10'6/uL 10/22/2024 4:24 PM CDT [facility] HGB 12.3 12.3 - 15.3 G/DL 10/22/2024 4:24 PM CDT [facility] HCT 35.8(L) 35.9 - 44.6 % 10/22/2024 4:24 PM CDT [facility] MCV 89.5 80.0 - 96.0 FL 10/22/2024 4:24 PM CDT [facility] MCH 30.8 25.3 - 30.9 PG 10/22/2024 4:24 PM CDT [facility] MCHC 34.4(H) 31.0 - 34.1 G/DL 10/22/2024 4:24 PM CDT [facility] RDW 16.0(H) 12.4 - 15.1 % 10/22/2024 4:24 PM CDT [facility] PLT 205 151 - 353 x10'3/uL 10/22/2024 4:24 PM CDT [facility] MPV 10.9 9.6 - 12.0 FL 10/22/2024 4:24 PM CDT [facility] RBC MORPHOLOGY NORMAL 10/22/2024 4:24 PM CDT [facility] PLT MORPH. NORMAL 10/22/2024 4:24 PM CDT [facility] WBC MORPHOLOGY NORMAL 10/22/2024 4:24 PM CDT [facility] LYMPHOCYTES % 22.2 15.8 - 45.0 % 10/22/2024 4:24 PM CDT [facility] NEUTROPHILS % 66.6 42.1 - 71.9 % 10/22/2024 4:24 PM CDT [facility] MONOCYTES % 8.2 5.7 - 12.5 % 10/22/2024 4:24 PM CDT [facility] EOSINOPHILS 2.0 0.0 - 5.6 % 10/22/2024 4:24 PM CDT [facility] BASOPHILS 0.7 0.0 - 1.3 % 10/22/2024 4:24 PM CDT [facility] ABS. NEUTROPHILS 5.01 1.40 - 6.00 x10'3/uL 10/22/2024 4:24 PM CDT [facility] IMMATURE GRANS % 0.3 0.0 - 0.5 % 10/22/2024 4:24 PM CDT [facility] ABS. LYMPHOCYTES 1.67 0.80 - 4.70 x10'3/uL 10/22/2024 4:24 PM CDT [facility] 10/22/2024 4:04 PM CDT us Julio Dick DO LABORATORY Final Result Performing Organization Address City/State/[facility] Co de Phone Number [facility] [address] [place] [address], [place] [phone] * TROPONIN, QUANT (10/22/2024 4:04 PM CDT) TROPONIN I HIGH SENSITIVITY 7 0 - 50 ng/L 10/22/2024 4:40 PM CDT [facility] Comment: HIGH DOSES OF BIOTIN, TROPONIN-SPECIFIC AUTOANTIBODIES, AND ANTIBODY THERAPY CONTAINING HAMA MAY INTERFERE WITH THIS TEST RESULT. CORRELATION TO CLINICAL HISTORY AND PRESENTATION RECOMMENDED. 10/22/2024 4:04 PM CDT us Julio Dick DO LABORATORY Final Result Performing Organization Address [facility] Co de Phone Number [facility] [address] [place] [address], [place] [phone] * MAGNESIUM (10/22/2024 4:04 PM CDT) Pathologist [facility] MAGNESIUM 1.9 1.8 - 2.4 MG/DL 10/22/2024 4:47 PM CDT [facility] 10/22/2024 4:04 PM CDT us Julio Dick DO LABORATORY Final Result Performing Organization Address City/[facility]/ZIP Co de Phone Number [facility] [address] [place] [address], [place] [phone] * LIPASE (10/22/2024 4:04 PM CDT) LIPASE 31 16 - 77 UNITS/L 10/22/2024 4:47 PM CDT [facility] 10/22/2024 4:04 PM CDT us Julio Dick DO LABORATORY Final Result [facility] () [facility] [address] [place] [address], [place] [phone] from Last 3 Months Insurance [place]IC[place] [id number] Advance Directives Documents on File Type Date Recorded Patient Lean Coach Expl anation Advance Directives and Living Will see legal document regarding Sikh - also POA * Full Code (Latest Code Status on File) Date Activated Date Inactivated Comments 04/13/2024 5:59 AM 04/17/2024 3:59 PM Care Teams Guest Service Aide Relationship Specialty Start Date End Date Micheal Rodriguez MD [address] [facility] [address] [place] [address] PCP - General INTERNAL MEDICINE 04/12/24
--- OUTSIDE RECORDS SUMMARY | 2024-11-30 12:25 | XMS_ITS | Clinical Summary ---
Author Organization [facility] Address [address] [place] [address] Care Team Providers Care Bolt Machine Operator Name Role Phone Micheal Rodriguez MD Primary Care Provider +- [phone] Allergies Active Allergy Reactions Criticality Noted Date [...] 0 Active fluticasone propionate (FLONASE) 50 mcg/spray [place], Suspension nasal inhaler SPRAY 1 SPRAY INTO [...] on file Legal Sex Female 5:21 AM RESIDENT CARE AID Gender Identity Not on file Sexual Orientation [...] Description 12/02/2024 11:15 AM CDT Office Visit [facility] [place] [address] [place] [address] Chadwick Enciso MD [address] [facility] [address] [place] [address] Health Maintenance Due Date Last Done Comments [...] A AND B GENERIC PAYOR Care Teams Bolt Machine Operator Relationship Specialty Start Date End Date Micheal Rodriguez MD [address] [facility] [address] [place] [address] PCP - General Internal Medicine 08/02/24
--- OUTSIDE RECORDS SUMMARY | 2024-11-30 12:25 | XMS_ITS | Clinical Summary ---
Author Organization [facility] Address [address] [place] [address] Care Team Providers Care Chief Jailer Name Role Phone Micheal Rodriguez MD Primary [...] 07/01/2023 Assessment & Plan (03/23/2024 1:34 PM UNIVERSITY DEMONSTRATOR): Slight srf sup to disc OD now with diffuse drusen and some atrophy OU. Continue AREDS. Pt wants to seek care closer to home. Schedule for consult at [facility] in [place]. F/u here prn. Assessment & Plan (07/01/2023 2:46 PM CDT): Stable with no signs of exudative disease on exam today. F/u in 6 months for repeat DFE and mac OCT. ANG (iron deficiency anemia) 04/10/2023 Acute upper GI bleed 03/21/2023 Assessment & Plan (03/31/2023 3:09 PM UNIVERSITY DEMONSTRATOR): CT A/P GI bleed protocol on admission with 2 foci of arterial enhancement and blooming on delayed images in the 2nd and 3rd portions of the duodenum compatible with active extravasation. Hgb 4.5 (baseline 11, 11/2022) from 6 on 03/16. Iron deficient on presentation to OSH, iron deficiency resolved s/p IV repletion. B12 wnl. No hypotension. Pt is [place] and does not accept whole blood products. [...] 03/21/2023 Assessment & Plan (03/21/2023 2:57 AM UNIVERSITY DEMONSTRATOR): - Home nightly CPAP Breast cancer 03/21/2023 Assessment & Plan (03/21/2023 2:59 AM UNIVERSITY DEMONSTRATOR): R breast CA (2018, ER+) s/p R mastectomy, chemotherapy, and radiation now on surveillance. Was on exemestane until recently, she reports Oncology stopped it due to concern about potential adverse effects. Pulmonary embolism 03/21/2023 Assessment & Plan (03/27/2023 6:23 PM UNIVERSITY DEMONSTRATOR): Hospitalized at OSH 01/2023 with RSV; shortly [...] 03/21/2023 Assessment & Plan (04/01/2023 3:38 PM UNIVERSITY DEMONSTRATOR): Follows w/ OSH pulmonology. Mild expiratory wheezes [...] 03/21/2023 Assessment & Plan (03/21/2023 3:14 AM UNIVERSITY DEMONSTRATOR): - Hold home diltiazem 120 mg daily, losartan 50 mg daily pending clinical course given acute GI bleed Anxiety 03/21/2023 Assessment & Plan (03/21/2023 3:15 AM UNIVERSITY DEMONSTRATOR): - Home sertraline Acute anemia 03/20/2023 Assessment & Plan (04/03/2023 10:45 AM UNIVERSITY DEMONSTRATOR): Due to GIB. No melena since 03/24. Hgb has been on the low 5s. She is [employer] and does not accept whole blood products. [...] the results faxed to Dr Pérez at [phone] Pseudophakia of both eyes 12/31/2022 Assessment & Plan (07/01/2023 2:46 PM CDT): Stable. Observe. Assessment & Plan (01/01/2023 9:08 AM UNIVERSITY DEMONSTRATOR): Stable. Observe. Diastolic heart failure 09/11/2021 Assessment & Plan (03/24/2023 6:44 PM UNIVERSITY DEMONSTRATOR): Chart history of diastolic dysfunction, appears hypervolemic on admission with small bilateral pleural effusions and 2+ pitting edema BLEs. No S/s CHF exacerbation - Hold home Bumex 4 mg PO daily pending clinical course given acute GI bleed - TTE- Normal LV size and systolic function Left posterior capsular opacification 04/22/2019 Assessment & Plan (01/01/2023 9:10 AM UNIVERSITY DEMONSTRATOR): Stable. Observe. Assessment & Plan (12/25/2021 4:22 PM UNIVERSITY DEMONSTRATOR): Mild. Stable. observe. Assessment & Plan (06/26/2021 4:08 PM CDT): Stable. Observe. Assessment & Plan (01/24/2021 12:27 PM UNIVERSITY DEMONSTRATOR): Minimal impact on bcva. Observe. Visual symptoms likely due to uncorrected refractive error. Update SRx. Assessment & Plan (04/22/2019 2:56 PM UNIVERSITY DEMONSTRATOR): Not yet impacting BCVA. Observe. Update SRx for reading. Retinal drusen of both eyes 04/22/2019 Assessment & Plan (01/01/2023 9:09 AM UNIVERSITY DEMONSTRATOR): Progressive non-exudative AMD with GA OU. Recommended pt start AREDS vitamin supplements. F/u in 6 months for repeat DFE with mac OCT. Assessment & Plan (07/03/2022 4:10 PM CDT): Stable on exam today. No e/o conversion to exudative disease. Continue to follow q6mos. Assessment & Plan (12/25/2021 4:22 PM UNIVERSITY DEMONSTRATOR): cuticular drusen OU. Low risk of conversion to exudative disease. Repeat dfe in 6 mos. Assessment & Plan (06/26/2021 4:08 PM CDT): No active exudative disease evident on exam and OCT today. Continue to follow q6mo. Assessment & Plan (01/24/2021 12:27 PM UNIVERSITY DEMONSTRATOR): Stable on exam. Will recheck OCT at f/u. Assessment & Plan (04/22/2019 2:55 PM UNIVERSITY DEMONSTRATOR): Small hard drusen OU. Mild. Annual exam. 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 Assessment & Plan (04/22/2019 2:57 PM UNIVERSITY DEMONSTRATOR): Variable blur when reading likely due to [...] on file Legal Sex Female 3:01 AM UNIVERSITY DEMONSTRATOR Gender Identity Not on file Sexual Orientation [...] , 12/14/2018, 12/03/2013, Additional history exists Insurance [address] [facility] SUPPLEMENT MEDICARE COMMERCIAL GENERIC MEDICARE LOCAL [address] [employer] SUPPLEMENT Advance Directives For more information, please contact: [phone] Documents on File Type Date Recorded Patient Topper Press Operator Expl anation ADVANCE DIRECTIVE 04/07/2023 7:01 PM POWER OF FORMULATOR-MEDICAL * Full Code (Latest Code Status on File) Date Activated Date Inactivated Comments 03/20/2023 7:03 PM 04/03/2023 5:45 PM Care Teams Chief Jailer Relationship Specialty Start Date End Date Micheal Rodriguez MD [address] [facility] [facility] [address] [place], [place] [id number] PCP - General Internal Medicine 06/20/24
[2024-11-30 13:33] LABS: Iron 60 ug/dL (37-170)
[2024-11-30 13:42] LABS: Percent Iron Saturation 22 % (20-50)
[2024-11-30 14:10] LABS: Ferritin 27.20 ng/mL (11.1-264)
[2024-11-30 14:44] LABS: Vitamin B12 897.0 pg/mL (239-931)
== END 2024-11-30 10:34 | disposition home or self-care (01) ==
PROVIDERS: PCP Internal Medicine; Visit Provider Internal Medicine Hematology & Oncology
DX: D64.9 Anemia, unspecified (principal); C50.011 Malignant neoplasm of nipple and areola, right female breast; Z17.0 Estrogen receptor positive status [ER+]
CPT/HCPCS: 36415; 82607; 82728; 82746; 83540; 83550; 85027; 86300

== ENCOUNTER 2024-12-07 14:27 | Outpatient (CLI) | payer MEDICARE, OTHER, SELFPAY ==
--- NOTE | ~2024-12-07 | DEXA_ITS ---
Bone Density Report Name: SKINNY AGUIAR Age: 89 Sex: Female Ethnicity: White Date of : 1935 Indication: osteopenia; height loss; cancer; hysterectomy; Referring Provider: MITCH ARTEAGA Study: Bone densitometry was performed. Exam Date: December 07, 2024 Accession number: [id number] Bone Density: Region BMD T-score Z-score Classification AP Spine(L1-L4) 0.937 -1.0 1.9 Normal Femoral Neck (Left) 0.616 -2.1 0.4 Osteopenia Total Hip (Left) 0.804 -1.1 1.2 Osteopenia Femoral Neck (Right) 0.592 -2.3 0.2 Osteopenia Total Hip (Right) 0.760 -1.5 0.8 Osteopenia Total Hip Mean 0.782 -1.3 1.0 Osteopenia World Health Organization criteria for BMD impression classify patients as: Normal (T-score at or above -1.0), Osteopenia (T-score between -1.0 and -2.5), or Osteoporosis (T-score at or below -2.5). 10-year Fracture Risk(1): Major Osteoporotic Fracture 14% Hip Fracture 4.7% Reported Risk Factors: [place] (), Neck BMD=0.592, BMI=31.5 (1) FRAX(R) Version 3.08. Fracture probability calculated for an untreated patient. Fracture probability may be lower if the patient has received treatment. Previous Exams: Region Exam Age BMD T-score BMD Change BMD Change Date g/cm2 vs Baseline vs Previous Total Hip(Left) 12/07/2024 89 0.804 -1.1 -0.023 (-2.7%) -0.023 (-2.7%) 01/16/2020 84 0.826 -0.9 Total Hip(Right) 12/07/2024 89 0.760 -1.5 0.010 (1.4%)# 0.010 (1.4%)# 01/16/2020 84 0.750 -1.6 *Denotes significance at 95% confidence level, LSC for Total Hip = 0.027 g/cm2 # Denotes dissimilar scan types or analysis methods Clinical Information Provided by Patient: Has used the following medications: Vitamin D Has the following medical conditions: Cancer, Hysterectomy Patient maximum height was 64 Menopause Age: 46 No regular weight bearing exercise Drinks caffeinated beverages Onset of menses at age 14 Number of children 3 Impression: The patient has low bone mass, based on the Right Femoral Neck T-score. The patient has an estimated ten-year risk of hip fracture of 4.7% and an estimated ten-year risk of major fracture of 14%, based on the WHO FRAX algorithm. No significant bone loss was observed. Discussion: BONE DENSITY IS LOW AT ONE OR MORE SKELETAL SITES. THE PATIENT'S BMD AND CLINICAL RISK FACTORS CONTRIBUTE TO THIS PATIENT'S INCREASED RISK OF FRACTURE. This patient's lowest T-score is low at one or more skeletal sites. It meets the World Health Organization's (WHO) criteria for ?low bone mass? (T-score between -1.0 and -2.5). The patient's 10-year risk of hip fracture as calculated by FRAX exceeds the threshold where pharmacological therapy is recommended by the National Osteoporosis Foundation (NOF). However, all treatment decisions require clinical judgment and consideration of individual patient factors, including patient preferences, comorbidities, previous drug use, risk factors not captured in the FRAX model (e.g., frailty, falls, vitamin D deficiency, increased bone turnover, interval significant decline in bone density) and possible under or overestimation of fracture risk by FRAX. The patient should follow a healthful lifestyle (good nutrition with adequate calcium and vitamin D, and appropriate weight-bearing exercise). Follow-Up: Consider a repeat BMD and Vertebral Fracture Assessment (VFA) exam in 2 years or sooner if medically necessary, to reassess this patient's status. Reported by: TRISHA on 12/07/2024 3:10:00 PM. Reviewed, dictated and finalized at location A.
== END 2024-12-07 14:28 | disposition home or self-care (01) ==
LOC: ANHFOHIMG 14:29
PROVIDERS: PCP Internal Medicine; Visit Provider Internal Medicine
DX: R19.05 Periumbilic swelling, mass or lump (principal); M85.89 Other specified disorders of bone density and structure, multiple sites; M85.852 Other specified disorders of bone density and structure, left thigh; M85.851 Other specified disorders of bone density and structure, right thigh
CPT/HCPCS: 77080

== ENCOUNTER 2025-01-30 14:30 | Outpatient (RCR) | payer MEDICARE, OTHER, SELFPAY ==
--- NOTE | 2024-12-22 17:39 | OTOPPROG ---
Assessment and note entered by Ann-Marie Salgado OT Evaluation Information Assessment Status Evaluation Diagnosis lymphedema ICD-10 Condition Codes (OT) Lymphedema I89.0 Onset 2018 Subjective Information Pt. states I'm doing everything I can. I don't know why it keeps swelling. My feet have looked like this from 12 o'clock on today. Pt. reports she has been wearing her garments most of time. Pt. got her new compression pump from [employer], which she reports she has been using everyday. Assessment OT Clinical Summary Pt. is 88 year old F, presenting for progress note for treatment for signs and symptoms of Stage 2 lymphedema including persistent swelling, with fibrotic and firm tissue which does not resolve spontaneously or with elevation alone, in bilateral LE greatest at ankles and feet. Pt.'s swelling, hyperkeratosis, and fibrotic tissue in bilateral ankles and feet likely inconsistent compression garment wear, while awaiting new compression garments, reduced by 9.25 cm in R LE from initial evaluation and 11 cm in L LE. Pt. will benefit from continued participation in intensive phase of complete decongestive treatment including manual lymph drainage, use of compression pump, and education/training for donning/doffing appropriate compression garments with adaptive equipment and devices, development of consistent management routine, and ensuring appropriate fit and features of compression garments to facilitate transition to maintenance phase and optimal compliance. Plan of Care Interventions Therapeutic Exercise,Manual Therapy,Therapeutic Activities,Self-Care/Home Management,Other Other Interventions pneumatic compression pump OT Services Indicated Yes Treatment Frequency and 1-2x/ wk for 4 visits Duration These treatments will address the objective and functional deficits as defined above. The patient will be advanced safely and appropriately in order for the patient to progress towards his/her prior level of function. Additional exercises will be introduced and as well as a comprehensive home exercise program upon discharge, if needed, ?to ensure carryover of functional gains achieved in the clinic. This treatment plan has been reviewed and agreement upon by the patient.
--- NOTE | 2025-01-30 17:15 | OTOPDC ---
Assessment and note entered by Ann-Marie Salgado OT Discharge Information Assessment Status Discharge Diagnosis lymphedema ICD-10 Condition Codes (OT) Lymphedema I89.0 Onset 2018 Subjective Information Pt. reports she has been managing wear of LE below knee compression stockings and use of pump daily. Pt reports she has not received her nighttime compression garments because she has not been able to pay the bill she received. Reported Pain Level Pain Score 0: Self Report Assessment OT Clinical Summary Pt. is 88 year old F, presenting for treatment for signs and symptoms of Stage 2 lymphedema including persistent swelling, with fibrotic and firm tissue in bilateral LE greatest at ankles and feet. Pt. has been attending treatment since July 2024 with decreased frequency since December 2024 . Pt. completed complete decongestive treatment bilaterally, has been demonstrating management of condition to the best of her ability using velcro compression garments, below knee compression stockings, exercise, elevation, vasopneumatic compression pump, and self manual lymph drainage. Additional garments have been recommended and ordered, but not yet paid for and received. Coordination between DME supplier of garments and patient, with pt. educated on necessary steps to complete order and ensure insurance coverage was completed. Pt. is in agreement to discharge on this date, in belief that she has the skills necessary to continue management of condition independently. Plan of Care OT Services Indicated No
== END 2025-01-31 09:37 | disposition home or self-care (01) ==
LOC: ANHOT 14:30
PROVIDERS: PCP Internal Medicine; Visit Provider Podiatrist Foot & Ankle Surgery
DX: I89.0 Lymphedema, not elsewhere classified (principal)
CPT/HCPCS: 29581; 97016; 97140; 97165; 97530; 97535